=== PATIENT | male | born 1950 | race Caucasian/White ===

== ENCOUNTER → 2016-06-21 | Outpatient (CLI) | payer OTHER ==
[2015-12-09 17:00] VITALS: BP 100/54
[~2016-06-21] MED LIST: AMOX1TAB10 PO; ASPI325T4 PO; ASPI81TA9 PO; ATEN50TA PO; ATOR20TA58 PO; CARV3.122 PO; CARV6.25 PO; CARV6.252 PO; DORZ10DR3 EACHEYE; FURO-68 PO; HYDR-2868 PO; HYDR-2869 PO; ISOS30TA4 PO; LATA2.5D3 EACHEYE; LISI-338 PO; LISI10TA2 PO; POTA20TA4 PO; TAMS0.4C97 PO
--- NOTE | 2016-06-21 13:32 | CARD ---
APPROVED REPORT EXAM: Two-dimensional and M-mode echocardiogram with Doppler and color Doppler. Other Information Quality : Technically Limited INDICATION Dyspnea 2D DIMENSIONS RVDd3.0 (2.9-3.5cm)Left Atrium(2D)3.1 (1.6-4.0cm) IVSd1.6 (0.7-1.1cm)Aortic Root(2D)3.4 (2.0-3.7cm) LVDd4.4 (3.9-5.9cm)LVOT Diameter2.0 (1.8-2.4cm) PWd1.6 (0.7-1.1cm)LVDs3.7 (2.5-4.0cm) FS (%) 15.0 %SV27.5 ml Aortic Valve AoV Peak Matheus.106.2cm/sAoV VTI17.7cm AO Peak GR.4.5mmHgLVOT Peak Matheus.82.6cm/s LVOT VTI 18.09cmAO Mean GR.2mmHg SARA (VMAX)2.35tk9TSQ (VTI)3.17cm2 Mitral Valve MV E Thmeeoml62.7cm/sMV DECEL FRAG349te MV A Tuyrfrmh35.9cm/sMV E Mean Gr.1mmHg MV VMT30dmF/A Ratio1.5 MVA (PHT)4.05cm2 Pulmonary Valve PV Peak Ocrjwimt28.0cm/sPV Peak Grad.2mmHg RVOT VTI16.7cm Tricuspid Valve TR P. Myybssbg198bm/sRAP ZGJJVDVK6bkZh TR Peak Gr.74gjYdKKRM63nqWy LEFT VENTRICLE The left ventricle is normal size. There is mild to moderate concentric left ventricular hypertrophy. Left ventricle systolic function is mildly impaired. The Ejection Fraction is 40-45%. There is globa l hypokinesis of the left ventricle. Tissue Doppler imaging reveals moderate left ventricular diastol ic dysfunction. RIGHT VENTRICLE The right ventricle is normal size. The right ventricular systolic function is normal. ATRIA The left atrium size is normal. The right atrium size is normal. The interatrial septum is intact wit h no evidence for an atrial septal defect or patent foramen ovale as noted on 2-D or Doppler imaging. AORTIC VALVE The aortic valve is calcified but opens well. The aortic valve is trileaflet. Doppler and Color Flow revealed no significant aortic regurgitation. There is no significant aortic valvular stenosis. MITRAL VALVE The mitral valve is normal in structure and function. There is no mitral valve stenosis. Doppler and Color Flow revealed no mitral valve regurgitation noted. TRICUSPID VALVE The tricuspid valve is not well visualized. Doppler and Color Flow revealed trace tricuspid regurgita tion. The PA pressure was estimated at 21 mmHg. There is no tricuspid valve stenosis. PULMONIC VALVE The pulmonic valve is not well visualized. Doppler and Color Flow revealed no pulmonic valvular regur gitation. There is no pulmonic valvular stenosis. GREAT VESSELS The aortic root is normal in size. Pulmonary veins not recorded. The IVC was not visualized. PERICARDIAL EFFUSION There is no evidence of significant pericardial effusion. Critical Notification Critical Value: No <Conclusion> Left ventricle systolic function is mildly impaired. The Ejection Fraction is 40-45%. Doppler and Color Flow revealed trace tricuspid regurgitation. The PA pressure was estimated at 21 mmHg. There is no evidence of significant pericardial effusion.
== END | disposition home or self-care (01) ==
LOC: ECHO 10:16
PROVIDERS: ATTEND Internal Medicine Cardiovascular Disease
DX: I42.9 Cardiomyopathy, unspecified (principal); I07.1 Rheumatic tricuspid insufficiency; I70.0 Atherosclerosis of aorta; I51.7 Cardiomegaly
CPT/HCPCS: 93306

== ENCOUNTER → 2016-07-18 | Outpatient (CLI) | payer OTHER ==
[2015-12-09 17:00] VITALS: BP 100/54
== END | disposition home or self-care (01) ==
LOC: LAB 14:41
PROVIDERS: ATTEND Urology
DX: R97.20 Elevated prostate specific antigen [PSA] (principal)
CPT/HCPCS: 36415; G0103

== ENCOUNTER → 2016-08-01 | Outpatient (CLI) | payer OTHER ==
[2015-12-09 17:00] VITALS: BP 100/54
[~2016-08-01] MED LIST changes: +CIPR500T94 PO; +antibiotic
[2016-08-01 10:40] LABS: BASO # 0.1 x10^3/uL (0.0-0.2); BASO % 1 % (0-3); EOS % 4 % (0-3); HEMATOCRIT 41.6 % (39.0-53.0); HEMOGLOBIN 13.9 g/dL (13.0-17.5); LYMPH # 1.7 x10^3/uL (1.0-4.8); LYMPH % 21 % (24-48); MEAN CORPUSCULAR HEMOGLOBIN 29 pg (25-35); MEAN CORPUSCULAR HGB CONC 33 g/dL (31-37); MEAN CORPUSCULAR VOLUME 85 fL (79-100); MONO % 9 % (0-9); NEUT % 65 % (31-73); PLATELET COUNT 244 x10^3/uL (140-400); RED BLOOD COUNT 4.88 x10^6/uL (4.30-5.70); RED CELL DISTRIBUTION WIDTH 15.2 % (11.5-14.5); WHITE BLOOD COUNT 8.1 x10^3/uL (4.0-11.0)
[2016-08-01 10:56] LABS: CALCIUM 9.3 mg/dL (8.5-10.1); CREATININE 1.4 mg/dL (0.7-1.3); GFR 50.5; POTASSIUM 4.3 mmol/L (3.5-5.1)
== END | disposition home or self-care (01) ==
LOC: LAB 10:14
PROVIDERS: ATTEND Nurse Practitioner Occupational Health
DX: R97.20 Elevated prostate specific antigen [PSA] (principal); Z12.5 Encounter for screening for malignant neoplasm of prostate
CPT/HCPCS: 36415; 80048; 85027; G0103

== ENCOUNTER 2016-08-07 08:59 | Day surgery (SDC) | payer OTHER ==
--- NOTE | 2016-08-04 15:26 | HP ---
ADMIT DATE: 08/07/2016 SURGICAL HISTORY AND PHYSICAL The patient will be coming in sometime in the next month for a transrectal ultrasound of prostate and needle biopsies. This will be his H and P. CHIEF COMPLAINT: Urinary retention and elevated PSA. HISTORY OF PRESENT ILLNESS: The patient is a very pleasant 65-year-old white male with history of urinary retention, also found to have an elevated PSA in the 7-8 range. The patient's PSA on 01/17/2016 was 7.5. The patient was also in urinary retention at that time. Repeat PSAs, however, have shown PSA to still be elevated in the 7-8 range. Most recent PSA was 8. The patient failed voiding trial. He does have a Rodriguez catheter. Discussed with the patient the options, alternatives, benefits, risks and possible complications of transrectal ultrasound of prostate and needle biopsies to rule out adenocarcinoma of the prostate. PAST MEDICAL HISTORY: Significant for coronary artery disease, hypertension, chronic kidney disease. The patient has history of congestive heart failure in the past. MEDICATIONS: Trusopt, Latanoprost ophthalmic solutions, baby aspirin. We will check with Dr. Sheppard, his overhead cleaner to make sure it is okay to proceed with the operation and also to make sure it is okay to be off of his baby aspirin for a week before and a week after the procedure. The patient is also on Flomax, carvedilol and atorvastatin. ALLERGIES: The patient with no known drug allergies. REVIEW OF SYSTEMS: The patient is feeling well. PHYSICAL EXAMINATION: GENERAL: The patient is an elderly white male in no acute distress. HEENT: Normocephalic, atraumatic. NECK: Supple. CHEST: Clear to auscultation. CARDIOVASCULAR: Regular rate and rhythm. ABDOMEN: Soft, nontender. GENITOURINARY: Testes are descended bilaterally. Phallus is within normal limits. He has Rodriguez catheter to gravity drainage. RECTAL: On digital rectal examination, the patient has good sphincter tone. Prostate is smooth, nontender, without nodules, overall size 35 grams. EXTREMITIES: Without clubbing, cyanosis or edema. NEUROLOGIC: Grossly intact. IMPRESSION: Urinary retention and elevated PSA. PLAN: I discussed with the patient the options, alternatives, benefits, risks and possible complications of transrectal ultrasound of prostate and needle biopsies to rule out adenocarcinoma of the prostate. The patient understands this and does wish to proceed with operation. We will therefore proceed accordingly here in the next month after cardiac clearance. JOANNA FLORES MD DR: RACHELLE/tara JOB#: [id number] / [id number]
[~2016-08-07] VITALS: Ht 182.9 cm; Wt 100.2 kg
[~2016-08-07 08:59] MED LIST changes: -CIPR500T94 PO; +FENTANYL PF 100 MCG/2 ML VIAL. IV PRN; +HYDROMORPHONE 2 MG/ML VIAL. IV PRN; +IV RINGERS,LACTATED 1000ML 1,000 ML IV SCH; +LIDOCAINE 1% 1 ML SYRINGE. ID PRN; +MORPHINE SULFATE 2 MG/ML DISP.SYRIN. IV PRN; +ONDANSETRON PF 4 MG/2 ML VIAL. IV PRN; +PROCHLORPERAZINE 10 MG/2 ML VIAL. IV PRN
[2016-08-07] MEDS ORDERED: CIPR500T94 PO (09:41)
[2016-08-07 09:48] LABS: BASO # 0.1 x10^3/uL (0.0-0.2); BASO % 1 % (0-3); EOS % 4 % (0-3); HEMATOCRIT 39.6 % (39.0-53.0); HEMOGLOBIN 13.3 g/dL (13.0-17.5); LYMPH # 1.5 x10^3/uL (1.0-4.8); LYMPH % 19 % (24-48); MEAN CORPUSCULAR HEMOGLOBIN 28 pg (25-35); MEAN CORPUSCULAR HGB CONC 34 g/dL (31-37); MEAN CORPUSCULAR VOLUME 85 fL (79-100); MONO % 8 % (0-9); NEUT % 68 % (31-73); PLATELET COUNT 220 x10^3/uL (140-400); RED BLOOD COUNT 4.67 x10^6/uL (4.30-5.70); RED CELL DISTRIBUTION WIDTH 15.4 % (11.5-14.5); WHITE BLOOD COUNT 7.9 x10^3/uL (4.0-11.0)
[2016-08-07 09:56] LABS: CREATININE 1.5 mg/dL (0.7-1.3); GFR 46.7; POTASSIUM 3.9 mmol/L (3.5-5.1)
[2016-08-07] MEDS ORDERED: PROPOFOL 20 ML IV ONE (10:35)
[2016-08-07] MEDS ORDERED: LIDOCAINE 2% 100 MG/5 ML DISP.SYRIN. ONE (10:35)
[2016-08-07] MEDS ORDERED: DEXAMETHASONE SOD PHOS 20 MG/5 ML VIAL. ONE (10:36)
[2016-08-07] MEDS ORDERED: ONDANSETRON PF 4 MG/2 ML VIAL. ONE (10:36)
[2016-08-07] MEDS ORDERED: EPHEDRINE PF IN SALINE 50 MG/5 ML DISP.SYRIN. IV ONE (10:44)
[2016-08-07] MEDS ORDERED: SEVOFLURANE 31 TO 60 MINUTES. IH ONE (10:57)
--- NOTE | 2016-08-07 11:08 | DISCH ---
DISCHARGE INSTRUCTIONS Condition on Discharge Condition on Discharge: Stable Activity After Discharge Activity Instructions for Disc: Avoid exertion Diet after Discharge Diet after Discharge: Cardiac Contacting the DRGerald after DC Call your doctor for: If your condition worsens Follow-Up Follow up with: Follow up Dr. Barboza in urology in 2 weeks JOANNA BARBOZA MD Aug 07, 2016 11:08
--- NOTE | 2016-08-07 11:10 | PDOC4 ---
Operative Note Operative Note pre-op dx-elevated PSA procedure-Transrectal ultrasound of the prostate with prostate needle biopsies surgeon-clyde flores-general Pt. to PACU in stable condition JOANNA FLORES MD Aug 07, 2016 11:10
[2016-08-07 12:50] VITALS: BP 128/57
--- NOTE | 2016-08-07 16:36 | OP ---
DATE OF SURGERY: 08/07/2016 OPERATION: Transrectal ultrasound and prostate needle biopsy. SURGEON: Joanna Barboza MD ANESTHESIA: General. PREOPERATIVE DIAGNOSIS: Elevated prostate-specific antigen. POSTOPERATIVE DIAGNOSIS: Elevated prostate-specific antigen. INDICATIONS: The patient is a very pleasant 65-year-old white male with history of elevated PSA and urinary retention. The patient runs a PSA in the 7 to 8 range. Most recently was 8. The patient also has urinary retention and has indwelling Rodriguez catheter which is changed on a regular basis. I have discussed with the patient the options, alternatives, benefits, risks, and possible complications of transrectal ultrasound and prostate needle biopsies to rule out adenocarcinoma of the prostate. The patient understands this and does wish to proceed with the operation. DESCRIPTION OF PROCEDURE: After obtaining an informed consent and cardiac clearance, the patient was taken to the operating room and placed in a left lateral decubitus position. The patient had already taken his antibiotic preprocedurally. He was also given IV antibiotics preprocedurally and has antibiotics to take postprocedurally to cover him for the procedure. Rectal examination was then performed. The patient had a fairly good sphincter tone, prostate smooth without nodules, overall size 30 grams by palpation. Following this, transrectal ultrasound was then performed with the biplanar probe. Prostate was inspected in both transverse and sagittal planes. Prostate size was calculated to be 55 cubic cm. No obvious hypoechoic areas were identified. Following this, Sextant biopsies were then obtained with the [employer]Pro biopty gun and biopty needle. Biopsies were sent for pathologic analysis. Following this, the probe was removed from the patient. The patient tolerated the procedure very well with only a small amount of oozing from the biopsy sites. Following this, patient was then taken to the recovery room in stable condition. We will have the patient follow up in Urology office in 2 weeks for his catheter change and to review the pathology results when they come back. The patient will hold off on his baby aspirin for one more week. He has been off for 1 week. The patient has antibiotics to take tomorrow to cover him for the procedure also in addition to the antibiotics he had received preoperatively. JOANNA BARBOZA MD DR: RACHELLE/tara JOB#: [id number] / [id number]
--- NOTE | 2016-08-08 17:16 | PATHOLOGY ---
PATHOLOGY REPORT * * * * * * * * FINAL DIAGNOSIS: A. Prostate tissue, left apex prostate needle biopsies: - Focal acute and chronic inflammation and glandular atrophy. B. Prostate tissue, left mid prostate needle biopsies: - Focal acute and chronic inflammation and glandular atrophy. C. Prostate tissue, left base prostate needle biopsies: - Focal acute and chronic inflammation and glandular atrophy. D. Prostate tissue, right apex prostate needle biopsies: - Focal chronic inflammation and glandular atrophy. E. Prostate tissue, right mid prostate needle biopsies: - Focal glandular atrophy. F. Prostate tissue, right base prostate needle biopsies: - Focal glandular atrophy. COMMENT: There is no evidence of malignancy. (JPM:mgr; d/t: 08/08/16) REPORT ELECTRONICALLY SIGNED BY: Abisai Whalen M.D. DATE/TIME: 08/08/2016 17:16 * * * * * * * * GROSS PATHOLOGY: A. Submitted in formalin, labeled "Jose Ralph and left apex," are 2 needle cores of putnam tissue measuring 1.5 and 1.6 cm in length, by less than 0.1 cm in diameter. Tissue is submitted in toto in cassette A1. B. Submitted in formalin, labeled "Jose Ralph and left mid," are 4 needle cores of putnam tissue ranging from 0.3-1.8 cm in length, by less than 0.1 cm in diameter. Tissue is submitted in toto in cassette B1. C. Submitted in formalin, labeled "Ralph, Jose and left base," are 2 needle cores of putnam tissue measuring 1.6 and 2.2 cm in length, by less than 0.1 cm in diameter. Tissue is submitted in toto in cassette C1. D. Submitted in formalin, labeled "Jose Ralph and right apex," are 2 needle cores of putnam tissue measuring 1.2 and 1.8 cm in length, by less than 0.1 cm in diameter. Tissue is submitted in toto in cassette D1. E. Submitted in formalin, labeled "Ralph, Jose and right mid," are 3 needle cores of putnam tissue ranging from 0.3-1.3 cm in length, by less than 0.1 cm in diameter. Tissue is submitted in toto in cassette E1. F. Submitted in formalin, labeled "Ralph, Jose and right base," are 3 needle cores of putnam tissue ranging from 0.3-1.3 cm in length, by less than 0.1 cm in diameter. Tissue submitted in toto in cassette F1. (TTL; 08/07/2016) INITIAL CPT CODE(S): A; 39720 B; 63996 C; 61312 D; 10665 E; 61589 F; 93155 Professional services performed [place] [facility] [place] [address] Technical services performed by [facility] at [address] [place] [address], [facility] [address] [address]. SPECIMEN(S) RECEIVED: A.Left apex prostate, needle biopsy B.Left mid prostate, needle biopsy C.Left base prostate, needle biopsy D.Right apex prostate, needle biopsy E.Right mid prostate, needle biopsy F.Right base prostate, needle biopsy CLINICAL HISTORY: Elevated PSA PATIENT: JOSE RALPH /AGE: [id number] 1950 (Age: 65) PATIENT #: [id number] ALT CASE #: SPECIMEN COLLECTION DATE: 08/07/2016 SPECIMEN RECEIVED DATE: 08/07/2016 [facility] - [address] [place] [address] - PHONE: [phone] * * * END OF REPORT * * *
== END 2016-08-07 13:00 | disposition home or self-care (01) ==
LOC: SURG 08:59
PROVIDERS: ATTEND Urology
DX: R97.20 Elevated prostate specific antigen [PSA] (principal); H40.9 Unspecified glaucoma; I10 Essential (primary) hypertension
CPT/HCPCS: 36415; 55700; 76942; 80048; 85027; 88305; C1887; J1100; J1956; J2405; J2704; 76998

== ENCOUNTER 2016-11-22 13:22 | Emergency (ER) | payer OTHER ==
[~2016-11-22] VITALS: Ht 182.9 cm; Wt 109.3 kg
[~2016-11-22 13:22] MED LIST changes: +ASPI-612 PO; -ASPI325T4 PO; +ASPI325T8 PO; -ASPI81TA9 PO; +CIPR500T94 PO; -FENTANYL PF 100 MCG/2 ML VIAL. IV PRN; -HYDROMORPHONE 2 MG/ML VIAL. IV PRN; -IV RINGERS,LACTATED 1000ML 1,000 ML IV SCH; -LIDOCAINE 1% 1 ML SYRINGE. ID PRN; -MORPHINE SULFATE 2 MG/ML DISP.SYRIN. IV PRN; -ONDANSETRON PF 4 MG/2 ML VIAL. IV PRN; -PROCHLORPERAZINE 10 MG/2 ML VIAL. IV PRN
[2016-11-22 13:30] VITALS: BP 167/70
--- NOTE | 2016-11-22 13:33 | PHYS DOC ---
Past Medical History Past Medical History: Heart Disease, Hypertension, Renal Disease Additional Past Medical Histor: glaucoma Past Surgical History: No Surgical History Alcohol Use: None Drug Use: None Adult General Chief Complaint Chief Complaint: CATHETER CHANGE HPI HPI Patient is a 65 year old male with indwelling rebollar catheter who presents for routine catheter exchange. Due to recent changes in local Urology coverage, he does not have a clinic available for this service. He denies other complaints. He is awaiting new urologist appointment. Review of Systems Review of Systems Constitutional: Denies fever or chills [] Eyes: Denies change in visual acuity, redness, or eye pain [] HENT: Denies nasal congestion or sore throat [] Respiratory: Denies cough or shortness of breath [] Cardiovascular: No additional information not addressed in HPI [] GI: Denies abdominal pain, nausea, vomiting, bloody stools or diarrhea [] : Denies dysuria or hematuria [] Musculoskeletal: Denies back pain or joint pain [] Integument: Denies rash or skin lesions [] Neurologic: Denies headache, focal weakness or sensory changes [] Endocrine: Denies polyuria or polydipsia [] Allergies Allergies Allergies Coded Allergies Type Severity Reaction Last Updated Verified No Known Drug Allergies 08/07/16 No Physical Exam Physical Exam Constitutional: Well developed, well nourished, no acute distress, non-toxic appearance. [] HENT: Normocephalic, atraumatic, bilateral external ears normal, oropharynx moist, nose normal. [] Eyes: PERRLA, EOMI. [] Neck: Normal range of motion, supple. [] Cardiovascular: Extremities warm [] Lungs & Thorax: Respirations even and unlabored [] Abdomen: soft, no tenderness. [] Skin: Warm, dry, no erythema, no rash. [] Back: Normal range of motion. [] Extremities: ROM intact, ambulatory with a steady gait. [] Neurologic: Alert and oriented X 3, normal motor function, normal sensory function, no focal deficits noted. [] Psychologic: Affect normal, judgement normal, mood normal. [] Course & Med Decision Making Course & Med Decision Making Catheter exchange without complication. Return precautions given. He understands and agrees with plan. Dragon Disclaimer Dragon Disclaimer This electronic medical record was generated, in whole or in part, using a voice recognition dictation system. Departure Departure Impression: Primary Impression: Urinary catheter (Rebollar) change required Disposition: HOME, SELF-CARE Condition: STABLE Referrals: NO PCP (PCP) Patient Instructions: Rebollar Catheter Care, Adult Additional Instructions: Follow-up with urology clinic and your primary care doctor. Return for any concerns. An GONZALEZ MD Nov 22, 2016 13:33
== END 2016-11-22 13:45 | disposition home or self-care (01) ==
LOC: ER 13:22
DX: Z46.6 Encounter for fitting and adjustment of urinary device (principal); H40.9 Unspecified glaucoma; I11.9 Hypertensive heart disease without heart failure
CPT/HCPCS: 51702; 99284-25

== ENCOUNTER 2017-02-15 14:16 | Emergency (ER) | payer OTHER ==
[2017-02-15 14:25] VITALS: BP 166/91
--- NOTE | 2017-02-15 14:35 | PHYS DOC ---
Past Medical History Past Medical History: Heart Disease, Hypertension, Prostatitis, Renal Disease Additional Past Medical Histor: glaucoma Past Surgical History: No Surgical History Alcohol Use: None Drug Use: None Adult General Chief Complaint Chief Complaint: URINE CATHETER PROBLEM [facility] Patient is a 66 year old male who presents with requesting of his Rodriguez catheter change. He states his been 5 weeks since he had his last catheter change and that was at . He states [facility] told to have it changed every month. He does not want any blood work he denies any lightheadedness abdominal pain or weakness. He states he just wants a catheter change. He states he's was beginning prostate surgery soon and that he has to keep the catheter in until April. Review of Systems Review of Systems Constitutional: Denies fever or chills [] Eyes: Denies change in visual acuity, redness, or eye pain [] HENT: Denies nasal congestion or sore throat [] Respiratory: Denies cough or shortness of breath [] Cardiovascular: No additional information not addressed in HPI [] GI: Denies abdominal pain, nausea, vomiting, bloody stools or diarrhea [] : Denies dysuria or hematuria [] Musculoskeletal: Denies back pain or joint pain [] Integument: Denies rash or skin lesions [] Neurologic: Denies headache, focal weakness or sensory changes [] Endocrine: Denies polyuria or polydipsia [] Allergies Allergies Allergies Coded Allergies Type Severity Reaction Last Updated Verified No Known Drug Allergies 08/07/16 No Physical Exam Physical Exam Constitutional: Well developed, well nourished, no acute distress, non-toxic appearance. [] HENT: Normocephalic, atraumatic, bilateral external ears normal, oropharynx moist, no oral exudates, nose normal. [] Eyes: PERRLA, EOMI, conjunctiva normal, no discharge. [] Neck: Normal range of motion, no tenderness, supple, no stridor. [] Cardiovascular:Heart rate regular rhythm, no murmur [] Lungs & Thorax: Bilateral breath sounds clear to auscultation [] Abdomen: Bowel sounds normal, soft, no tenderness, no masses, no pulsatile masses. Rodriguez catheter in place with red tinged colored urine. Skin: Warm, dry, no erythema, no rash. [] Back: No tenderness, no CVA tenderness. [] Extremities: No tenderness, no cyanosis, no clubbing, ROM intact, no edema. [] Neurologic: Alert and oriented X 3, normal motor function, normal sensory function, no focal deficits noted. [] Psychologic: Affect normal, judgement normal, mood normal. [] Current Patient Data Vital Signs Vital Signs Date Time Temp Pulse Resp B/P (MAP) Pulse Ox O2 Delivery O2 Flow Rate FiO2 02/15/17 14:25 98.4 66 16 97 Room Air 98.4 EKG EKG [] Radiology/Procedures Radiology/Procedures [] Impressions: Rodriguez catheter change Course & Med Decision Making Course & Med Decision Making Pertinent Labs and Imaging studies reviewed. (See chart for details) Patient does not want labs done. He is once his catheter change. It was changed by according to the nursing when a little difficult and has a little bit of red colored urine in the bag at this time. Patient denies any pain or discomfort. He is requesting we discharged home. He is instructed that if the blood gets worse or does not clear the next several hours to return back to ER. Dragon Disclaimer Dragon Disclaimer This electronic medical record was generated, in whole or in part, using a voice recognition dictation system. Departure Departure Impression: Primary Impression: Rodriguez catheter problem Disposition: 01 HOME, SELF-CARE Condition: STABLE Referrals: NO PCP (PCP) Patient Instructions: Rodriguez Catheter Care, Adult Additional Instructions: Your Rodriguez catheter was changed per your request. He did not want any blood work to be done. He did have some blood in your Rodriguez that should clear over the next several hours. If it does not clear you need to come back to the ER. If you have any other concerns such as fevers, abdominal pain, weakness and please return back to ER for additional tests. Problem Qualifiers Primary Impression: Rodriguez catheter problem Encounter type: initial encounter Qualified Codes: T83.9XXA - Unspecified complication of genitourinary prosthetic device, implant and graft, initial encounter CARLOS CINTRON MD Feb 15, 2017 14:35
== END 2017-02-15 14:53 | disposition home or self-care (01) ==
LOC: ER 14:16
DX: T83.098A Other mechanical complication of other urinary catheter, initial encounter (principal); I13.10 Hypertensive heart and chronic kidney disease without heart failure, with stage 1 through stage 4 chronic kidney disease, or unspecified chronic kidney disease; N18.9 Chronic kidney disease, unspecified; H40.9 Unspecified glaucoma; Y84.6 Urinary catheterization as the cause of abnormal reaction of the patient, or of later complication, without mention of misadventure at the time of the procedure; Y92.89 Other specified places as the place of occurrence of the external cause
CPT/HCPCS: 51702; 99284-25

== ENCOUNTER 2017-03-16 09:41 | Emergency (ER) | payer OTHER ==
[~2017-03-16] VITALS: Ht 182.9 cm; Wt 102.1 kg
[2017-03-16 09:55] VITALS: BP 131/69
--- NOTE | 2017-03-16 10:23 | PHYS DOC ---
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 He states that it's supposed to be changed monthly basis. He has a history of prostate cancer in which they have placed a catheter and due to to urinate. Patient states that his urologist was Dr. Barboza who is retired. He has been seeing [facility] and is set up for a ultrasound type procedure on the of this month. Patient states that last night he was also having difficulty with his catheter draining. His catheter appears to be draining clear yellow urine at this time. He denies any fever, chills or any nausea vomiting. Review of Systems Review of Systems Constitutional: Denies fever or chills [] Eyes: Denies change in visual acuity, redness, or eye pain [] HENT: Denies nasal congestion or sore throat [] Respiratory: Denies cough or shortness of breath [] Cardiovascular: No additional information not addressed in HPI [] GI: Denies abdominal pain, nausea, vomiting, bloody stools or diarrhea [] : Denies dysuria or hematuria [] Musculoskeletal: Denies back pain or joint pain [] Integument: Denies rash or skin lesions [] Neurologic: Denies headache, focal weakness or sensory changes [] Endocrine: Denies polyuria or polydipsia [] Patient states that he is here for catheter change. Allergies Allergies Allergies Coded Allergies Type Severity Reaction Last Updated Verified No Known Drug Allergies 08/07/16 No Physical Exam Physical Exam Constitutional: Well developed, well nourished, no acute distress, non-toxic appearance. [] HENT: Normocephalic, atraumatic, bilateral external ears normal, oropharynx moist, no oral exudates, nose normal. [] Eyes: PERRLA, EOMI, conjunctiva normal, no discharge. [] Neck: Normal range of motion, no tenderness, supple, no stridor. [] Cardiovascular:Heart rate regular rhythm, no murmur [] Lungs & Thorax: Bilateral breath sounds clear to auscultation [] Skin: Warm, dry, no erythema, no rash. [] Extremities: No tenderness, no cyanosis, no clubbing, ROM intact, no edema. [] Neurologic: Alert and oriented X 3, normal motor function, normal sensory function, no focal deficits noted. [] Psychologic: Affect normal, judgement normal, mood normal. [] Current Patient Data Vital Signs Vital Signs Date Time Temp Pulse Resp B/P (MAP) Pulse Ox O2 Delivery O2 Flow Rate FiO2 03/16/17 09:55 98.5 65 20 95 Room Air 98.5 Lab Values Laboratory Tests Test 03/16/17 11:05 Urine Collection Type U cath Urine Color Red Urine Clarity Turbid Urine pH 6.0 Urine Specific [place] 1.015 Urine Protein >=300 mg/dL (NEG-TRACE) Urine Glucose (UA) Negative mg/dL (NEG) Urine Ketones (Stick) 40 mg/dL (NEG) Urine Blood Large (NEG) Urine Nitrite Positive (NEG) Urine Bilirubin Large (NEG) Urine Urobilinogen Dipstick 1.0 mg/dL (0.2 mg/dL) Urine Leukocyte Esterase Large (NEG) Urine RBC Tntc /HPF (0-2) Urine WBC Fobs /HPF (0-4) Urine Squamous Epithelial Cells Few /LPF Urine Bacteria Few /HPF (0-FEW) EKG EKG [] Radiology/Procedures Radiology/Procedures [] Course & Med Decision Making Course & Med Decision Making Pertinent Labs and Imaging studies reviewed. (See chart for details) Spoke with patient regards to having the Rebollar catheter changed in speaking with his primary care physician or urologist in regards to having home health placed the catheter normal basis. Patient states that he does have health insurance, and he doesn't want coming to the emergency department to have this completed. Explained to patient that one it's more cost effective for the health insurance and himself as well as preventing him from coming in contact with sick patients. Rebollar catheter will be changed with UA obtained. Urine was positive for urinary tract infection as the patient does have a large amount leukocyte Estrace, and is positive for nitrates. Patient will be placed on Cipro with recommendations for plenty of fluids such as water and cranberry juice recommended to avoid cranberry juice cocktail, carbonated beverages, citrus fruits, alcohol, caffeine as these are considered irritants to the bladder. Patient will also be encouraged to take the medication, antibiotic, Cipro as prescribed. Patient will be discharged home in stable condition. Signs and symptoms to return to the emergency department has been provided. All questions and concerns have been answered at patients bedside. Also recommended that the patient check with his Urologist in regards to home health changing his rebollar catheter on a monthly basis. [] Dragon Disclaimer Dragon Disclaimer This electronic medical record was generated, in whole or in part, using a voice recognition dictation system. Departure Departure Impression: Primary Impression: Urinary catheter (Rebollar) change required Additional Impression: Catheter-associated urinary tract infection Disposition: HOME, SELF-CARE Condition: STABLE Referrals: NO PCP (PCP) Patient Instructions: Rebollar Catheter Care, Adult, Urinary Tract Infection, Easy -to-Read Additional Instructions: Activity as tolerated Drink plenty of fluids such as water and cranberry juice. Avoid cranberry juice cocktail, carbonate beverages, citrus fruits, caffeine, alcohol, sees her considered irritants to the bladder. Medication as prescribed Continue your home medications as prescribed Check with your urologist in regards to home health for rebollar catheter changes. Followup with primary care provider in 3-5 days Return to emergency department as needed for signs and symptoms that become worse. Scripts Ciprofloxacin Hcl (CIPRO) 500 Mg Tablet 1 TAB PO BID, #14 TAB Prov: MARGARITA WOLF APRN 03/16/17 Problem Qualifiers Additional Impression: Catheter-associated urinary tract infection Indwelling urinary catheter type: indwelling urethral catheter Encounter type : initial encounter Qualified Codes: T83.511A - Infection and inflammatory reaction due to indwelling urethral catheter, initial encounter; N39.0 - Urinary tract infection, site not specified MARGARITA WOLF APRN Mar 16, 2017 10:23
[2017-03-16 11:15] LABS: BILIRUBIN,URINE LARGE (NEG); GLUCOSE,URINE NEGATIVE (NEG); NITRITE,URINE POSITIVE (NEG); PROTEIN,URINE >=300 mg/dL (NEG-TRACE)
[2017-03-16 11:48] LABS: BACTERIA,URINE FEW /HPF (0-FEW); RBC,URINE TNTC /HPF (0-2)
[2017-03-16 11:49] LABS: SQUAMOUS EPITHELIAL CELL,UR FEW /LPF; WBC,URINE FOBS /HPF (0-4)
[2017-03-16] MEDS ORDERED: CIPR500T94 PO (11:53)
== END 2017-03-16 12:00 | disposition home or self-care (01) ==
LOC: ER 09:41
DX: T83.511A Infection and inflammatory reaction due to indwelling urethral catheter, initial encounter (principal); I13.10 Hypertensive heart and chronic kidney disease without heart failure, with stage 1 through stage 4 chronic kidney disease, or unspecified chronic kidney disease; N18.9 Chronic kidney disease, unspecified; Y84.6 Urinary catheterization as the cause of abnormal reaction of the patient, or of later complication, without mention of misadventure at the time of the procedure; Y92.89 Other specified places as the place of occurrence of the external cause
CPT/HCPCS: 51702; 81001; 87086; 99284-25

== ENCOUNTER 2017-03-21 02:27 | Emergency (ER) | payer OTHER ==
[~2017-03-21] VITALS: Ht 182.9 cm; Wt 99.8 kg
[2017-03-21 03:03] VITALS: BP 149/71
--- NOTE | 2017-03-21 04:21 | PHYS DOC ---
Past Medical History Past Medical History: Heart Disease, Hypertension, Prostatitis, Renal Disease Additional Past Medical Histor: glaucoma Past Surgical History: No Surgical History Alcohol Use: None Drug Use: None Adult General Chief Complaint Chief Complaint: URINE CATHETER PROBLEM HPI HPI Patient is a 66 year old M who presents with bleeding from the penis. Patient has indwelling Rodriguez catheter which is changed every 4 months secondary to difficulties with urination. Patient got the catheter tubing caught in the recliner as returning get out in which it pulled and he sustained some trauma afterwards. After the incident patient started having blood in his catheter bag and around the tip of the penis. Patient denied any other symptoms. Patient states he is on antibiotics for her current UTI. Patient no other complaints. Review of Systems Review of Systems GEN: Denies fevers, chills, sweats HEENT: Denies blurred vision, sore throat CV: Denies chest pain RESP: Denies shortness of air, cough GI: Denies n/v/d : Bleeding from the penis NEURO: Denies confusion, dizziness MSK: Denies weakness, joint pain/swelling Allergies Allergies Allergies Coded Allergies Type Severity Reaction Last Updated Verified No Known Drug Allergies 08/07/16 No Physical Exam Physical Exam GEN.: No apparent distress. Alert and oriented. HEENT: Head is normocephalic, atraumatic NECK: Supple. LUNGS: CTAB. HEART: RRR, S1, S2 present. Peripheral pulses intact ABDOMEN: Soft, nontender. Positive bowel sounds. : Indwelling Rodriguez catheter in place with blood at the tip of the meatus EXTREMITIES: Without any cyanosis. NEUROLOGIC: Normal speech, normal tone PSYCHIATRIC: Normal affect, normal mood. SKIN: No ulcerations Current Patient Data Vital Signs Vital Signs Date Time Temp Pulse Resp B/P (MAP) Pulse Ox O2 Delivery O2 Flow Rate FiO2 03/21/17 03:03 98.5 60 18 94 Room Air 98.5 EKG EKG [] Radiology/Procedures Radiology/Procedures [] Course & Med Decision Making Course & Med Decision Making Pertinent Labs and Imaging studies reviewed. (See chart for details) ED course: Patient was seen and examined emergency room to irrigate the patient's Rodriguez to clear since he is getting good urine return. Will not run a UA at this time since the patient already on antibiotics for UTI which she just started a couple days ago. 0447: Patient's Rodriguez was irrigated to almost clear, patient is ready go feels much better. Recommended he should follow up with his urologist next one to 2 days returning symptoms increase. MDM: After reviewing the chart, CC/HPI/PMH, physical exam, I do not believe the patient has emergent urological issue warranting further workup and/or admission at this time. I believe the patient has cause some local trauma to his urethra when he pulled on the tubing for the Rodriguez catheter which has led to some bleeding. The bladder is been irrigated thoroughly in the emergency room. I believe the patient is stable for discharge. Recommended short-term follow-up with his urologist. Explained to the patient that if the bleeding increases clots could clog up the tubing and cause urinary retention in which the need to return to the emergency room immediately. Additional verbal discharge instructions were provided to the patient and that if symptoms get worse or any new symptoms arise that are worrisome to the patient he is to return to the emergency room immediately [] Dragon Disclaimer Dragon Disclaimer This electronic medical record was generated, in whole or in part, using a voice recognition dictation system. Departure Departure Impression: Primary Impression: Urinary catheter complication Additional Impression: Hematuria Disposition: HOME, SELF-CARE Condition: IMPROVED Referrals: NO PCP (PCP) Patient Instructions: Rodriguez Catheter Care, Adult, Hematuria, Adult Additional Instructions: Please follow-up with your urologist next one to 2 days turn if symptoms increase Problem Qualifiers MIRTHA BARONE DO Mar 21, 2017 04:21
== END 2017-03-21 05:11 | disposition home or self-care (01) ==
LOC: ER 02:27
DX: T83.098A Other mechanical complication of other urinary catheter, initial encounter (principal); I13.10 Hypertensive heart and chronic kidney disease without heart failure, with stage 1 through stage 4 chronic kidney disease, or unspecified chronic kidney disease; N18.9 Chronic kidney disease, unspecified; Y84.6 Urinary catheterization as the cause of abnormal reaction of the patient, or of later complication, without mention of misadventure at the time of the procedure; Y92.89 Other specified places as the place of occurrence of the external cause
CPT/HCPCS: 99284

== ENCOUNTER 2018-03-14 13:01 | Emergency (ER) | payer MEDICARE, OTHER ==
[~2018-03-14] VITALS: Ht 185.4 cm; Wt 100.7 kg
[~2018-03-14 13:01] MED LIST changes: +AMLO5TAB7 PO; +BRIM5DRO2 OP; -DORZ10DR3 EACHEYE; +DORZ10DR6 EACHEYE; +METO25TA4 PO; +OXYB10TA PO
--- NOTE | 2018-03-14 13:40 | PHYS DOC ---
Past Medical History Past Medical History: A-Fib, CHF, Glaucoma, High Cholesterol, Heart Disease, Hypertension, Prostatitis, Renal Disease Additional Past Medical Histor: [place], blind right eye Past Surgical History: Other Additional Past Surgical Histo: CARDIAC CATH, prostate Alcohol Use: None Drug Use: None Adult General Chief Complaint Chief Complaint: MECHANICAL FALL HPI HPI 67-year-old male presents to ER for complaints of mechanical fall on Sunday night striking the right side of his head on the concrete. Patient reports he had no loss of consciousness or confusion following the fall. Patient states this morning he woke around 8 or 9 AM and had a small floater in his right thigh. Patient reports symptom subsided and he has had no additional vision changes since. Patient denies any dizziness, lightheadedness, earache, or tinnitus. Patient denies nausea or vomiting. 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 Patient reports mild discomfort at abrasions to right orbital and forehead area. Patient denies head, neck, back, or extremity pain. Pt reports he takes 81mg aspirin daily. Review of Systems Review of Systems Constitutional: Denies fever or chills [] Eyes: Denies change in visual acuity, redness, or eye pain [] HENT: Denies nasal congestion or sore throat [] Respiratory: Denies cough or shortness of breath [] Cardiovascular: No additional information not addressed in HPI [] GI: Denies abdominal pain, nausea, vomiting, bloody stools or diarrhea [] : Denies dysuria or hematuria [] Musculoskeletal: Denies back pain or joint pain [] Integument: Denies rash or skin lesions [] Neurologic: Denies headache, focal weakness or sensory changes [] Endocrine: Denies polyuria or polydipsia [] All other systems were reviewed and found to be within normal limits, except as documented in this note. Allergies Allergies Allergies Coded Allergies Type Severity Reaction Last Updated Verified No Known Drug Allergies 08/07/16 No Physical Exam Physical Exam Constitutional: Well developed, well nourished, no acute distress, non-toxic appearance. [] HENT: Normocephalic, atraumatic, bilateral external ears normal, oropharynx moist, no oral exudates, nose normal. [] Eyes: PERRLA, EOMI, conjunctiva normal, no discharge. [] Neck: Normal range of motion, no tenderness, supple, no stridor. [] Cardiovascular:Heart rate regular rhythm, no murmur [] Lungs & Thorax: Bilateral breath sounds clear to auscultation [] Abdomen: Bowel sounds normal, soft, no tenderness, no masses, no pulsatile masses. [] Skin: Warm, dry, no erythema, no rash. [] Back: No tenderness, no CVA tenderness. [] Extremities: No tenderness, no cyanosis, no clubbing, ROM intact, no edema. [] Neurologic: Alert and oriented X 3, normal motor function, normal sensory function, no focal deficits noted. [] Psychologic: Affect normal, judgement normal, mood normal. [] Current Patient Data Vital Signs Vital Signs Date Time Temp Pulse Resp B/P (MAP) Pulse Ox O2 Delivery O2 Flow Rate FiO2 03/14/18 13:01 98.2 72 20 121/64 (83) 93 98.2 EKG EKG [] Radiology/Procedures Radiology/Procedures [] Course & Med Decision Making Course & Med Decision Making Pertinent Imaging studies reviewed. (See chart for details) [] Dragon Disclaimer Dragon Disclaimer This electronic medical record was generated, in whole or in part, using a voice recognition dictation system. Departure Departure Impression: Primary Impression: Fall Additional Impressions: Abrasion Contusion Facial injury Disposition: HOME, SELF-CARE Condition: STABLE Referrals: NO PCP (PCP) Patient Instructions: Abrasions, Facial or Scalp Contusion, Fall Prevention and Home Safety Additional Instructions: As discussed follow-up with your cad technician for further evaluation. Tylenol as needed for pain as directed on container. Problem Qualifiers AZAR LANE APRN Mar 14, 2018 13:40
--- NOTE | 2018-03-14 14:19 | RAD ---
CT of the head and orbits without contrast 03/14/2018 1:48 PM Indication: FALL SUNDAY, RT SIDE HEAD AND FACIAL INJURY, PRIOR HEAD SENT Comparison: None Procedure: Multidetector CT imaging of the head and orbits was performed without the administration of contrast. Findings: No intracranial hemorrhage is seen. No evidence of acute territorial infarct is seen. Note that CT is limited in sensitivity for acute ischemia. Mild age related atrophic changes are noted. There is mild patchy periventricular and inflammatory hypoattenuation which is nonspecific but most commonly relates to chronic small vessel disease. No abnormal extra axial fluid collection is identified. No mass effect or midline shift is seen. No evidence of acute fracture is seen. The paranasal sinuses demonstrate no evidence of hemorrhage or acute fluid level. The visualized globes are intact. No intra-articular call hematoma or other focal abnormality is seen. The nasal bones are intact. The bony orbits are intact. Impression: 1.No evidence of acute intracranial abnormality 2. No evidence of acute abnormality involving the bony orbits.. CT cervical spine without contrast. 03/14/2018 1:48 PM Indication:FALL SUNDAY, RT SIDE HEAD AND FACIAL INJURY, PRIOR HEAD SENT Comparison Study: None Technique: Multidetector CT imaging of the cervical spine was obtained without administration of contrast. Findings: There is no evidence of acute fracture or alignment abnormality of the cervical. Vertebral body heights and disc spaces are maintained. The atlantoaxial articulation is within normal limits. There is no prevertebral soft tissue swelling. Soft tissues are otherwise unremarkable. No bony compromise of the spinal canal is seen. Impression: No evidence of acute fracture or alignment abnormality of the cervical spine CT DOSING PQRS STATEMENT: One or more of the following individualized dose reduction techniques were utilized for this examination: 1. Automated exposure control 2. Adjustment of the mA and/or kV according to patient size 3. Use of iterative reconstruction technique Electronically signed by: Earle Gasca MD (03/14/2018 2:15 PM) [id number]
[2018-03-14 14:47] VITALS: BP 133/71
--- NOTE | 2018-03-15 08:26 | EKG ---
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
== END 2018-03-14 14:47 | disposition home or self-care (01) ==
LOC: ER 13:01
DX: S00.83XA Contusion of other part of head, initial encounter (principal); S05.11XA Contusion of eyeball and orbital tissues, right eye, initial encounter; I48.91 Unspecified atrial fibrillation; I11.0 Hypertensive heart disease with heart failure; I50.9 Heart failure, unspecified; E78.00 Pure hypercholesterolemia, unspecified; W18.09XA Striking against other object with subsequent fall, initial encounter; H54.40 Blindness, one eye, unspecified eye; Y93.89 Activity, other specified; Y92.89 Other specified places as the place of occurrence of the external cause; Y99.8 Other external cause status
CPT/HCPCS: 70450; 70480; 72125; 93005; 99284

== ENCOUNTER 2019-07-22 07:46 | Emergency (ER) | payer OTHER ==
[~2019-07-22] VITALS: Ht 182.9 cm; Wt 97.0 kg
[~2019-07-22 07:46] MED LIST changes: +AMLO5TAB10 PO; -AMLO5TAB7 PO; +CARV3.1210 PO; -CARV3.122 PO; +CARV6.2511 PO; -CARV6.252 PO; +FURO40TA4 PO; -OXYB10TA PO; +OXYB10TA26 PO; +POTA10TA12 PO; +PRAM0.255 PO
--- NOTE | 2019-07-22 08:53 | PHYS DOC ---
Past Medical History Past Medical History: A-Fib, CHF, Glaucoma, High Cholesterol, Heart Disease, Hypertension, Prostatitis, Renal Disease Additional Past Medical Histor: [place], blind right eye Past Surgical History: Other Additional Past Surgical Histo: CARDIAC CATH, prostate Smoking Status: Former Smoker Alcohol Use: None Drug Use: None Adult General Chief Complaint Chief Complaint: HIP PAIN HPI HPI Patient is a 68 year old male presents to the ED with left hip/knee pain following a mechanical fall 4 days ago. He states that he was walking around a table when his foot caught the corner and he fell on his left hip. He denied any chest pain, shortness of breath, or dizziness prior to fall. He says since that time he has had sharp shooting pain that begins at his upper gluteal muscle and goes down the back of his leg to his knee. He also has separate pain in the groin on that left side. He denied any head trauma or loss of consciousness with his fall. Since the fall he denies any headache, change in vision, dizziness, or weakness which is increased from his baseline. He states that the pain is worsened with movement of the extremity and aspirin cause slight improvement. He rates the pain as an 8-10 out of 10 at its worse especially in his left knee. He has significant edema bilaterally in his lower extremities Review of Systems Review of Systems Constitutional: Denies fever or chills Eyes: Denies change in vision or double vision Respiratory: Admits chronic cough; denies shortness of breath Musculoskeletal: Denies back pain, admits left hip pain and left knee pain Integument: Denies rash; admits multiple ecchymosis bilateral lower extremities Neurologic: Denies headache, focal weakness or sensory changes Complete systems were reviewed and found to be within normal limits, except as documented in this note. Family History Family History No pertinent family history Current Medications Current Medications Current Medications Medications (Trade) Dose Ordered Sig/Placido Start Time Stop Time Status Last Admin Dose Admin Acetaminophen/ Hydrocodone Bitart (Lortab 5/325) 1 tab 1X ONCE 07/22/19 09:15 07/22/19 09:16 DC 07/22/19 09:20 1 TAB Allergies Allergies Allergies Coded Allergies Type Severity Reaction Last Updated Verified No Known Drug Allergies 08/07/16 No Physical Exam Physical Exam Constitutional: Well developed, well nourished, no acute distress, uncomfortable appearance HENT: Normocephalic, atraumatic, oropharynx moist Eyes: Conjunctiva normal, no discharge Neck: Normal range of motion, no midline tenderness, supple Cardiovascular: Heart rate normal, regular rhythm Lungs & Thorax: Bilateral breath sounds clear to auscultation, no wheezing Abdomen: Soft, no tenderness; pelvis stable and nontender Skin: Warm, dry, no erythema, no rash, ecchymosis present bilaterally on knees and on left posterior thigh. Back: No midline tenderness, no decreased range of motion above baseline Extremities: Significant bilateral lower extremity edema. Tenderness to palpation of left knee anteriorly and laterally, tenderness to palpation of left superior/lateral gluteal region, knee and hip structurally stable on exam. Neurologic: Alert and oriented, normal motor function, normal sensory function, no focal deficits noted Psychologic: Affect normal, judgment normal Current Patient Data Vital Signs Vital Signs Date Time Temp Pulse Resp B/P (MAP) Pulse Ox O2 Delivery O2 Flow Rate FiO2 07/22/19 09:20 18 99 Room Air 07/22/19 09:01 78 138/76 (96) 07/22/19 08:21 97.8 97.8 EKG EKG [] Radiology/Procedures Radiology/Procedures PROCEDURE: HIP LEFT 2V WITH PELVIS & LEFT KNEE 3V Examination: Frontal view of the pelvis with 2 views of the left hip and 3 views of the left knee HISTORY: Fall, pain COMPARISON: 07/11/2019 FINDINGS: Severe joint space loss identified in the medial, lateral, patellofemoral compartments of the knee joint. Examination limited osseous demineralization.The bilateral femoral heads within the acetabula. Moderate joint space loss identified in the bilateral hip joint likely degenerative changes. IMPRESSION: 1. Severe tricompartmental degenerative changes knee joint. 2. Moderate degenerative changes bilateral hip joints. Electronically signed by: Dez Sue MD (07/22/2019 9:35 AM) [id number] Course & Med Decision Making Course & Med Decision Making Imaging studies reviewed. (See chart for details) 68-year-old male presents to the ED with left hip/knee pain after a mechanical fall 4 days prior. He states that he was walking around a table at his local library when his foot hooked the corner and he fell on his left hip. He denied any chest pain, shortness of breath, or dizziness prior to fall. He states that his pain is sharp in nature and has been worsening over the past 4 days. He states that movement of the extremity worsens the pain and that aspirin slightly improved the pain. He denies headache, neck pain, or motor/sensory changes. He rates his pain as a 8-10 out of 10, worse at his left knee with movement. In the ED he was worked up for possible fracture versus left knee/hip contusion and sprain. Left Hip/pelvic x-ray was ordered without acute fracture or dislocation but showed degenerative changes, Patient was given hydrocodone for pain with interval improvement. COSMO bandage applied to knee. Patient stable for discharge with outpatient follow-up with PCP/Orthopedics. Orthopedic referral provided. Discussed findings and plan with patient and family, who acknowledge understanding and agreement. Dragon Disclaimer Dragon Disclaimer This electronic medical record was generated, in whole or in part, using a voice recognition dictation system. Splinting Splinting : Location: Left knee Pre-Made Type: COSMO bandage Pre-Proc Neuro Vasc Exam: normal Post-Proc Neuro Vasc Exam: normal, unchanged from pre-exam Departure Departure Impression: Primary Impression: Fall Additional Impressions: Sprain of left hip Contusion of knee, left Arthritis Disposition: HOME, SELF-CARE Condition: STABLE Referrals: NO PCP (PCP) JOAQUÍN AGOSTO II, MD Patient Instructions: Arthritis, Nonspecific, [id number], Fall Prevention and Home Safety, [id number], Hip Pain, Knee Pain, [id number], Knee Wraps (Elastic Bandage) and RICE Scripts Hydrocodone/Apap 5-325 (NORCO 5-325 TABLET) 1 Each Tablet 0.5-1 TAB PO PRN Q6HRS PRN for PAIN, #10 TAB 0 Refills Prov: JODI NGERON DO 07/22/19 Problem Qualifiers Primary Impression: Fall Encounter type: initial encounter Qualified Codes: W19.XXXA - Unspecified fall, initial encounter Additional Impressions: Sprain of left hip Encounter type: initial encounter Qualified Codes: S73.102A - Unspecified sprain of left hip, initial encounter Contusion of knee, left Encounter type: initial encounter Qualified Codes: S80.02XA - Contusion of left knee, initial encounter JODI NEGRON DO Jul 22, 2019 08:53
[2019-07-22] MEDS ORDERED: HYDROcodone/APAP 5/325MG 1 TAB TABLET PO ONE (09:15)
--- NOTE | 2019-07-22 09:38 | RAD ---
Examination: Frontal view of the pelvis with 2 views of the left hip and 3 views of the left knee HISTORY: Fall, pain COMPARISON: 07/11/2019 FINDINGS: Severe joint space loss identified in the medial, lateral, patellofemoral compartments of the knee joint. Examination limited osseous demineralization.The bilateral femoral heads within the acetabula. Moderate joint space loss identified in the bilateral hip joint likely degenerative changes. IMPRESSION: 1. Severe tricompartmental degenerative changes knee joint. 2. Moderate degenerative changes bilateral hip joints. Electronically signed by: Dez Sue MD (07/22/2019 9:35 AM) [id number]
[2019-07-22] MEDS ORDERED: HYDR-3164 PO (09:55)
[2019-07-22 10:01] VITALS: BP 143/69
== END 2019-07-22 10:20 | disposition home or self-care (01) ==
LOC: ER 07:46
DX: S73.192A Other sprain of left hip, initial encounter (principal); S80.02XA Contusion of left knee, initial encounter; R10.32 Left lower quadrant pain; R05 Cough; M19.90 Unspecified osteoarthritis, unspecified site; I48.20 Chronic atrial fibrillation, unspecified; I11.0 Hypertensive heart disease with heart failure; I50.9 Heart failure, unspecified; N28.9 Disorder of kidney and ureter, unspecified; E78.00 Pure hypercholesterolemia, unspecified; Z98.890 Other specified postprocedural states; Z87.891 Personal history of nicotine dependence; W18.39XA Other fall on same level, initial encounter; Y93.89 Activity, other specified; Y92.89 Other specified places as the place of occurrence of the external cause; Y99.8 Other external cause status
CPT/HCPCS: 73502; 73562; 99284

== ENCOUNTER 2020-06-30 13:43 | Inpatient (IN) | payer OTHER ==
[~2020-06-30] VITALS: Ht 182.9 cm; Wt 103.9 kg
[~2020-06-30 13:43] MED LIST changes: +AMLO-186 PO; -AMLO5TAB10 PO; -ASPI-612 PO; +ASPI-886 PO; +HYDR-3164 PO; -ISOS30TA4 PO; +ISOS30TA68 PO; -LISI-338 PO; +LISI-517 PO; +LISI10TA16 PO; -LISI10TA2 PO
[2020-06-30] MEDS ORDERED: DIPH,PERTUSS(ACELL),TET VAC/PF 0.5 ML SYRINGE. VAX IM ONE ×2 (14:30)
[2020-06-30 15:07] LABS: BASO # 0.1 x10^3/uL (0.0-0.2); BASO % 1 % (0-3); EOS # 0.1 x10^3/uL (0.0-0.7); EOS % 2 % (0-3); HEMATOCRIT 44.5 % (39.0-53.0); HEMOGLOBIN 15.2 g/dL (13.0-17.5); LYMPH # 0.7 x10^3/uL (1.0-4.8); LYMPH % 10 % (24-48); MEAN CORPUSCULAR HEMOGLOBIN 31 pg (25-35); MEAN CORPUSCULAR HGB CONC 34 g/dL (31-37); MEAN CORPUSCULAR VOLUME 89 fL (79-100); MONO # 0.6 x10^3/uL (0.0-1.1); MONO % 8 % (0-9); NEUT # 5.3 x10^3/uL (1.8-7.7); NEUT % 79 % (31-73); PLATELET COUNT 236 x10^3/uL (140-400); RED CELL DISTRIBUTION WIDTH 14.5 % (11.5-14.5); WHITE BLOOD COUNT 6.8 x10^3/uL (4.0-11.0)
--- NOTE | 2020-06-30 15:20 | RAD ---
XR KNEE 3 VIEWS_RT History: Reason: fall pain RT KNEE / Spl. Instructions: / History: Technique: 3 views right knee. Comparison: None. Findings: Normal alignment. No fracture. Anterior knee soft tissue swelling. No knee joint effusion. Underneath degenerative changes most prominent within the lateral and patellofemoral compartments. Impression: 1. No acute osseous abnormality. 2. Anterior knee soft tissue swelling. 3. Moderate knee DJD. Electronically signed by: Que Gomes DO (06/30/2020 3:18 PM) [id number]
[2020-06-30 15:23] LABS: CALCIUM 9.4 mg/dL (8.5-10.1); CREATININE 1.3 mg/dL (0.7-1.3); GFR 54.4; POTASSIUM 3.9 mmol/L (3.5-5.1)
--- NOTE | 2020-06-30 15:25 | RAD ---
XR BILATERAL HIP (WITH OR WITHOUT PELVIS) 2 VIEWS_RIGHT History: Reason: fall pain RT HIP / Spl. Instructions: / History: Technique: AP view the pelvis and 2 additional views of the right hip. Comparison: July 22, 2019 Findings: Normal alignment. No dislocation. No acute fracture. Mild to moderate bilateral hip DJD. Lower lumbar spondylosis. Vascular calcifications.. Density overlying the left hip. Impression: 1. No acute osseous abnormalities. 2. Density overlying the left hip may relate to external artifact. If concern for left hip pain, rec ommend dedicated left hip radiographs. Electronically signed by: Que Gomes DO (06/30/2020 3:23 PM) [id number]
[2020-06-30 15:29] LABS: ALBUMIN 3.4 g/dL (3.4-5.0); ALBUMIN/GLOBULIN RATIO 0.8 (1.0-1.7); TOTAL BILIRUBIN 0.7 mg/dL (0.2-1.0); TOTAL PROTEIN 7.8 g/dL (6.4-8.2)
--- NOTE | 2020-06-30 16:02 | RAD ---
EXAM: CT HEAD WITHOUT IV CONTRAST CLINICAL HISTORY: Reason: fall pain / Spl. Instructions: / History: COMPARISON: None. TECHNIQUE: Routine CT of the head without contrast. Soft tissues and bone windows were reviewed. PQRS compliance statement - One or more of the following individualized dose reduction techniques wer e utilized for this study: 1. Automated exposure control 2. Adjustment of the mA and/or kV according to patient size 3. Use of iterative reconstruction technique FINDINGS: There is no evidence of hemorrhage, mass or extra-axial fluid collection. Deutsch-white differentiation is maintained with no evidence of edema. Subcortical, periventricular as w ell as the white matter foci of hypoattenuation likely changes of chronic small vessel disease. Lucen cy within the right basal ganglia likely old lacunar infarct. There is no mass effect or shift of the intracranial structures. The ventricles, basilar cisterns and cortical sulci are normal in size and configuration for the angie ents stated age. The cerebellum and brainstem are unremarkable. The calvarium demonstrates no evidence of fracture or focal lesion. There is normal aeration of the visualized paranasal sinuses and mastoid air cells. The visualized portions of the orbits are normal. Soft tissue swelling and scalp hematoma in the occipital region. IMPRESSION: 1. No evidence for acute intracranial process. 2. White matter changes likely chronic small vessel disease. EXAM: CT CERVICAL SPINE WITHOUT IV CONTRAST CLINICAL HISTORY: Reason: fall pain / Spl. Instructions: / History: COMPARISON: None available. TECHNIQUE: Helical CT of the cervical spine was performed. Axial, coronal and sagittal reformatted im ages were also performed. PQRS compliance statement - One or more of the following individualized dose reduction techniques wer e utilized for this study: 1. Automated exposure control 2. Adjustment of the mA and/or kV according to patient size 3. Use of iterative reconstruction technique FINDINGS: Vertebral body heights are preserved. Moderate to severe C5-6 and C6-7 disc height loss. Small medical case worker ior disc osteophyte complex at these levels. Multilevel facet degenerative changes. Background of con genital canal narrowing C5-C7. Asymmetric left tonsillar prominence can be correlated with clinical e xamination. IMPRESSION: 1. Multilevel spondylosis as above 2. Negative acute fracture or subluxation. 3. Asymmetric left tonsillar prominence can be correlated with clinical examination. Electronically signed by: Elpidio Yao MD (06/30/2020 4:00 PM) NANCY
--- NOTE | 2020-06-30 16:13 | RAD ---
Exam: CT thoracic spine without contrast CT lumbar spine without contrast CLINICAL HISTORY: Reason: fall pain / Spl. Instructions: / History: COMPARISON: None available. TECHNIQUE: This CT study consists of contiguous axial images performed through the thoracic and lumba r spine. Sagittal and coronal reformatted images were also performed. PQRS compliance statement - One or more of the following individualized dose reduction techniques wer e utilized for this study: 1. Automated exposure control 2. Adjustment of the mA and/or kV according to patient size 3. Use of iterative reconstruction technique FINDINGS: Thoracic spine: Vertebral body heights are preserved. Rightward curvature of the thoracic spine apex T7. Mild disc he ight loss centered at the mid thoracic spine. Linear and bandlike opacities in the left lower lobe li paramjit scarring/atelectasis. Gallbladder wall calcification or adherent calcified gallstones. Lumbar spine: 5 nonrib-bearing lumbar-type vertebral bodies. Vertebral body heights are preserved. Mild L4-5 and L5 -S1 disc height loss. Bulky anterior endplate osteophytes are seen at multiple levels. No spondylolis thesis. Mild multilevel facet degenerative changes are seen. Moderate fatty atrophy of the left iliopsoas. Vascular calcifications are seen. Multiple nonobstructi ng right renal calculi. Colonic diverticulosis. IMPRESSION: 1. Multilevel degenerative changes of the thoracic and lumbar spine 2. Negative acute fracture or subluxation of the thoracic or lumbar spine. Electronically signed by: Elpidio Yao MD (06/30/2020 4:11 PM) NANCY
--- NOTE | 2020-06-30 16:22 | RAD ---
EXAM: AP pelvis, AP and lateral views left hip DATE: 06/30/2020 3:47 PM INDICATION: Reason: fall pain / Spl. Instructions: / History: COMPARISON: 06/30/2020 FINDINGS: Ossification of the left iliopsoas tendon. No acute fracture or dislocation. Joint spaces are preserv ed. Moderate to large volume colonic stool content. Degenerative changes of lower lumbar spine. Decre ased bone mineral density. IMPRESSION: 1. No acute fracture or dislocation. 2. 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 Electronically signed by: Elpidio Yao MD (06/30/2020 4:20 PM) NANCY
[2020-06-30 16:59] LABS: BILIRUBIN,URINE NEGATIVE (NEG); CLARITY,URINE CLEAR; COLOR,URINE YELLOW; NITRITE,URINE NEGATIVE (NEG); PH,URINE 6.5 (<5.0-8.0); PROTEIN,URINE NEGATIVE (NEG-TRACE)
--- NOTE | 2020-06-30 17:02 | PHYS DOC ---
Past Medical History Past Medical History: Glaucoma, Heart Disease, Vascular Disease Additional Past Medical Histor: [place], blind right eye Past Surgical History: Pacemaker, Other Additional Past Surgical Histo: PROSTATE Smoking Status: Never Smoker Alcohol Use: None Drug Use: None General Adult EDM: Chief Complaint: MECHANICAL FALL HPI: HPI: Patient is a 69 year old male with a history of glaucoma, peripheral vascular disease, who presents to the ED today to be evaluated after falling. Patient reports he tripped on his feet and fell hitting his head on the ground. Denies any loss of consciousness. He reports is on a baby aspirin. Patient is also complaining of right mild hip pain and right mild knee pain. Symptoms worse on weightbearing. Describes the pain as sharp and intermittent. Patient appears very unkept, he is smelling. Has dirt all over his body including possible stool on his shoes. EMS report patient lives in a house with no running water and electricity. Review of Systems: Review of Systems: Constitutional: Denies fever or chills. [] Eyes: Denies change in visual acuity. [] HENT: Denies nasal congestion or sore throat. [] Respiratory: Denies cough or shortness of breath. [] Cardiovascular: Denies chest pain or edema. [] GI: Denies abdominal pain, nausea, vomiting, bloody stools or diarrhea. [] : Denies dysuria. [] Musculoskeletal: Denies back pain or joint pain. [] Integument: Denies rash. [] Neurologic: Reports falling and hitting his head. Denies headache, focal weakness or sensory changes. [] Psychiatric: Denies depression or anxiety. [] Heart Score: Risk Factors: Risk Factors: DM, Current or recent (<one month) smoker, HTN, HLP, family history of CAD, obesity. Risk Scores: Score 0 - 3: 2.5% MACE over next 6 weeks - Discharge Home Score 4 - 6: 20.3% MACE over next 6 weeks - Admit for Clinical Observation Score 7 - 10: 72.7% MACE over next 6 weeks - Early Invasive Strategies Current Medications: Current Medications Medications (Trade) Dose Ordered Sig/Placido Start Time Stop Time Status Last Admin Dose Admin Diphtheria/ Tetanus/Acell Pertussis (ADACEL TDap SYRINGE) 0.5 ml STK-MED ONCE 06/30/20 14:30 06/30/20 14:31 DC Allergies: Allergies: Allergies Coded Allergies Type Severity Reaction Last Updated Verified No Known Drug Allergies 08/07/16 No Physical Exam: PE: Constitutional: Patient appears very unkept, very smelly, has dirt covering most of his body including hands and lower extremity. Questionable stool on his shoes. Well developed, well nourished, no acute distress, non-toxic appearance. [] HENT: Normocephalic, atraumatic, bilateral external ears normal, oropharynx moist, no oral exudates, nose normal. [] Eyes: PERRLA, EOMI, conjunctiva normal, no discharge. [] Neck: Normal range of motion, no tenderness, supple, no stridor. [] Cardiovascular:Heart rate regular rhythm, no murmur [] Lungs & Thorax: Bilateral breath sounds clear to auscultation [] Abdomen: Bowel sounds normal, soft, no tenderness, no masses, no pulsatile masses. [] Skin: Warm, dry, no erythema, no rash. Abrasion noted on the left venegas. Back: No tenderness, no CVA tenderness. [] Extremities: No tenderness, no cyanosis, no clubbing, ROM intact, bilateral lower extremities with chronic swelling consistent with lymphedema. Neurologic: Alert and oriented X 3, normal motor function, normal sensory function, no focal deficits noted. Cranial nerves II through XII intact. Small contusion noted on posterior occipital Psychologic: Affect normal, judgement normal, mood normal. [] Current Patient Data: Labs: Laboratory Tests Test 06/30/20 14:58 White Blood Count 6.8 x10^3/uL (4.0-11.0) Red Blood Count 5.00 x10^6/uL (4.30-5.70) Hemoglobin 15.2 g/dL (13.0-17.5) Hematocrit 44.5 % (39.0-53.0) Mean Corpuscular Volume 89 fL (79-100) Mean Corpuscular Hemoglobin 31 pg (25-35) Mean Corpuscular Hemoglobin Concent 34 g/dL (31-37) Red Cell Distribution Width 14.5 % (11.5-14.5) Platelet Count 236 x10^3/uL (140-400) Neutrophils (%) (Auto) 79 % (31-73) H Lymphocytes (%) (Auto) 10 % (24-48) L Monocytes (%) (Auto) 8 % (0-9) Eosinophils (%) (Auto) 2 % (0-3) Basophils (%) (Auto) 1 % (0-3) Neutrophils # (Auto) 5.3 x10^3/uL (1.8-7.7) Lymphocytes # (Auto) 0.7 x10^3/uL (1.0-4.8) L Monocytes # (Auto) 0.6 x10^3/uL (0.0-1.1) Eosinophils # (Auto) 0.1 x10^3/uL (0.0-0.7) Basophils # (Auto) 0.1 x10^3/uL (0.0-0.2) Sodium Level 142 mmol/L (136-145) Potassium Level 3.9 mmol/L (3.5-5.1) Chloride Level 104 mmol/L (98-107) Carbon Dioxide Level 28 mmol/L (21-32) Anion Gap 10 (6-14) Blood Urea Nitrogen 15 mg/dL (8-26) Creatinine 1.3 mg/dL (0.7-1.3) Estimated GFR (Cockcroft-Gault) 54.4 BUN/Creatinine Ratio 12 (6-20) Glucose Level 122 mg/dL (70-99) H Calcium Level 9.4 mg/dL (8.5-10.1) Total Bilirubin 0.7 mg/dL (0.2-1.0) Aspartate Amino Transferase (AST) 18 U/L (15-37) Alanine Aminotransferase (ALT) 30 U/L (16-63) Alkaline Phosphatase 105 U/L (46-116) Total Protein 7.8 g/dL (6.4-8.2) Albumin 3.4 g/dL (3.4-5.0) Albumin/Globulin Ratio 0.8 (1.0-1.7) L Laboratory Tests 06/30/20 14:58 Laboratory Tests 06/30/20 14:58 Vital Signs: Vital Signs Date Time Temp Pulse Resp B/P (MAP) Pulse Ox O2 Delivery O2 Flow Rate FiO2 06/30/20 13:54 97.9 62 16 152/73 (99) 99 Room Air 97.9 EKG: EKG: [] Radiology/Procedures: Radiology/Procedures: []PROCEDURE: CT THORACIC SPINE WO CONTRAST Exam: CT thoracic spine without contrast CT lumbar spine without contrast CLINICAL HISTORY: Reason: fall pain / Spl. Instructions: / History: COMPARISON: None available. TECHNIQUE: This CT study consists of contiguous axial images performed through the thoracic and lumbar spine. Sagittal and coronal reformatted images were also performed. PQRS compliance statement - One or more of the following individualized dose reduction techniques were utilized for this study: 1. Automated exposure control 2. Adjustment of the mA and/or kV according to patient size 3. Use of iterative reconstruction technique FINDINGS: Thoracic spine: Vertebral body heights are preserved. Rightward curvature of the thoracic spine apex T7. Mild disc height loss centered at the mid thoracic spine. Linear and bandlike opacities in the left lower lobe likely scarring/atelectasis. Gallbladder wall calcification or adherent calcified gallstones. Lumbar spine: 5 nonrib-bearing lumbar-type vertebral bodies. Vertebral body heights are preserved. Mild L4-5 and L5-S1 disc height loss. Bulky anterior endplate osteophytes are seen at multiple levels. No spondylolisthesis. Mild multilevel facet degenerative changes are seen. Moderate fatty atrophy of the left iliopsoas. Vascular calcifications are seen. Multiple nonobstructing right renal calculi. Colonic diverticulosis. IMPRESSION: 1. Multilevel degenerative changes of the thoracic and lumbar spine 2. Negative acute fracture or subluxation of the thoracic or lumbar spine. Electronically signed by: Elpidio Aguilar MD (06/30/2020 4:11 PM) [facility] DICTATED and SIGNED BY: ELPIDIO AGUILAR MD DATE: 06/30/20 [id number] 0 PROCEDURE: KNEE RIGHT 3V XR KNEE 3 VIEWS_RT History: Reason: fall pain RT KNEE / Spl. Instructions: / History: Technique: 3 views right knee. Comparison: None. Findings: Normal alignment. No fracture. Anterior knee soft tissue swelling. No knee joint effusion. Underneath degenerative changes most prominent within the lateral and patellofemoral compartments. Impression: 1. No acute osseous abnormality. 2. Anterior knee soft tissue swelling. 3. Moderate knee DJD. Electronically signed by: Que Gomes DO (06/30/2020 3:18 PM) [id number] DICTATED and SIGNED BY: QUE GOMES DO DATE: 06/30/20 [id number] 0 PROCEDURE: CT HEAD AND CERVICAL SPINE WO EXAM: CT HEAD WITHOUT IV CONTRAST CLINICAL HISTORY: Reason: fall pain / Spl. Instructions: / History: COMPARISON: None. TECHNIQUE: Routine CT of the head without contrast. Soft tissues and bone windows were reviewed. PQRS compliance statement - One or more of the following individualized dose reduction techniques were utilized for this study: 1. Automated exposure control 2. Adjustment of the mA and/or kV according to patient size 3. Use of iterative reconstruction technique FINDINGS: There is no evidence of hemorrhage, mass or extra-axial fluid collection. Deutsch-white differentiation is maintained with no evidence of edema. Subcortical, periventricular as well as the white matter foci of hypoattenuation likely changes of chronic small vessel disease. Lucency within the right basal ganglia likely old lacunar infarct. There is no mass effect or shift of the intracranial structures. The ventricles, basilar cisterns and cortical sulci are normal in size and configuration for the patients stated age. The cerebellum and brainstem are unremarkable. The calvarium demonstrates no evidence of fracture or focal lesion. There is normal aeration of the visualized paranasal sinuses and mastoid air cells. The visualized portions of the orbits are normal. Soft tissue swelling and scalp hematoma in the occipital region. IMPRESSION: 1. No evidence for acute intracranial process. 2. White matter changes likely chronic small vessel disease. EXAM: CT CERVICAL SPINE WITHOUT IV CONTRAST CLINICAL HISTORY: Reason: fall pain / Spl. Instructions: / History: COMPARISON: None available. TECHNIQUE: Helical CT of the cervical spine was performed. Axial, coronal and sagittal reformatted images were also performed. PQRS compliance statement - One or more of the following individualized dose reduction techniques were utilized for this study: 1. Automated exposure control 2. Adjustment of the mA and/or kV according to patient size 3. Use of iterative reconstruction technique FINDINGS: Vertebral body heights are preserved. Moderate to severe C5-6 and C6-7 disc height loss. Small posterior disc osteophyte complex at these levels. Multilevel facet degenerative changes. Background of congenital canal narrowing C5-C7. Asymmetric left tonsillar prominence can be correlated with clinical examination. IMPRESSION: 1. Multilevel spondylosis as above 2. Negative acute fracture or subluxation. 3. Asymmetric left tonsillar prominence can be correlated with clinical examination. Electronically signed by: Elpidio Aguilar MD (06/30/2020 4:00 PM) [facility] DICTATED and SIGNED BY: ELPIDIO AGUILAR MD DATE: 06/30/20 [id number] 0 PROCEDURE: HIP LEFT 2V WITH PELVIS EXAM: AP pelvis, AP and lateral views left hip DATE: 06/30/2020 3:47 PM INDICATION: Reason: fall pain / Spl. Instructions: / History: COMPARISON: 06/30/2020 FINDINGS: Ossification of the left iliopsoas tendon. No acute fracture or dislocation. Joint spaces are preserved. Moderate to large volume colonic stool content. Degenerative changes of lower lumbar spine. Decreased bone mineral density. IMPRESSION: 1. No acute fracture or dislocation. 2. 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 Electronically signed by: Elpidio Aguilar MD (06/30/2020 4:20 PM) NANCY DICTATED and SIGNED BY: ELPIDIO AGUILAR MD DATE: 06/30/20 [id number] 0 PROCEDURE: HIP RIGHT 2V WITH PELVIS XR BILATERAL HIP (WITH OR WITHOUT PELVIS) 2 VIEWS_RIGHT History: Reason: fall pain RT HIP / Spl. Instructions: / History: Technique: AP view the pelvis and 2 additional views of the right hip. Comparison: July 22, 2019 Findings: Normal alignment. No dislocation. No acute fracture. Mild to moderate bilateral hip DJD. Lower lumbar spondylosis. Vascular calcifications.. Density overlying the left hip. Impression: 1. No acute osseous abnormalities. 2. Density overlying the left hip may relate to external artifact. If concern for left hip pain, recommend dedicated left hip radiographs. Electronically signed by: Que Gomes DO (06/30/2020 3:23 PM) [id number] DICTATED and SIGNED BY: QUE GOMES DO DATE: 06/30/20 [id number] 0 Course & Med Decision Making: Course & Med Decision Making Pertinent Labs and Imaging studies reviewed. (See chart for details) This is a 69-year-old male patient presenting to the ED today to be evaluated after falling. No loss of consciousness. Hit the head on the ground. Patient appears very unkept. He is smelling, has that covering his hands, lower extremities, chest. Has questionable stool on his shoes. EMS reports patient lives in a house with no running water and electricity. CT of the head, cervical spine, thoracic and lumbar spine are negative for any acute findings, bilateral hip x-rays including pelvis, right knee x-rays are negative for any acute findings. Spoke with Dr. Vazquez who accepted patient for admission Timmy Disclaimer: Timmy Disclaimer: This electronic medical record was generated, in whole or in part, using a voice recognition dictation system. Departure Departure Impression: Primary Impression: Fall Qualified Codes: W19.XXXA - Unspecified fall, initial encounter Additional Impressions: Contusion of right knee Qualified Codes: S80.01XA - Contusion of right knee, initial encounter Right hip pain Head contusion Qualified Codes: S00.03XA - Contusion of scalp, initial encounter Self-care deficit Disposition: 09 ADMITTED INPT THIS HOSP Condition: STABLE Referrals: NO PCP (PCP) JAZZMINE BHATT APRN Jun 30, 2020 17:01
[2020-06-30 17:21] LABS: AMORPHOUS SEDIMENT,UR PRESENT /HPF; BACTERIA,URINE FEW /HPF (0-FEW)
[2020-06-30 17:22] LABS: RBC,URINE 0 /HPF (0-2); WBC,URINE TNTC /HPF (0-4)
[2020-06-30] MEDS ORDERED: ONDANSETRON PF 4 MG/2 ML VIAL. IV PRN (17:30)
[2020-06-30] MEDS ORDERED: ACETAMINOPHEN 325 MG TABLET. PO PRN (17:30)
--- NOTE | 2020-06-30 18:36 | HP ---
ADMIT DATE: 06/30/2020 CHIEF COMPLAINT: Fall. HISTORY OF PRESENT ILLNESS: The patient is a pleasant 69-year-old male who lives at home with his brother, Ritesh. Apparently, there is no water. There is no electricity. There is staying warm with blankets. I am not even sure if they have food. I guess he fell today, someone called the ambulance. When he got to the ER, he was extremely dirty, has very poor hygiene. His legs have a massive swelling. I suspect he has some heart failure as well. I suspect the patient is going to need long-term care. The patient will be admitted for further evaluation. PAST MEDICAL HISTORY: Glaucoma, coronary artery disease, vascular disease, hard of hearing, blind right eye and prostate issues. ALLERGIES: None. FAMILY HISTORY: Diabetes. SOCIAL HISTORY: He lives at home with his brother Ritesh. There is no water or electricity, they are staying warm with blankets. 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 MEDICATIONS: Reviewed, please refer to the MRAD. REVIEW OF SYSTEMS: GENERAL: No history of weight change, weakness or fevers. SKIN: No bruising, hair changes or rashes. EYES: No blurred, double or loss of vision. NOSE AND THROAT: No history of nosebleeds, hoarseness or sore throat. HEART: No history of palpitations, chest pain or shortness of breath on exertion. LUNGS: Denies cough, hemoptysis, wheezing or shortness of breath. GASTROINTESTINAL: Denies changes in appetite, nausea, vomiting, diarrhea or constipation. GENITOURINARY: No history of frequency, urgency, hesitancy or nocturia. NEUROLOGIC: He complains of falls. PSYCHIATRIC: No history of panic, anxiety or depression. ENDOCRINE: No history of heat or cold intolerance, polyuria or polydipsia. EXTREMITIES: He complains of severe edema. PHYSICAL EXAMINATION: VITALS: Within normal limits and are stable. GENERAL: Severely swollen and has a lot of old skin on his hands, face, and extremities. Appears very dirty, poorly kept. HEENT: Normal cephalic atraumatic, external auditory canals are patent EYES: Extraocular muscles are intact, pupils are equally round and reactive to light and accommodation MUSCULOSKELETAL: Well developed, well nourished, good range of motion ENDOCRINE: No thyromegaly was palpated LYMPHATICS: No cervical chain or axillary nodes were noted HEMATOPOIETIC: No bruising NECK: Supple, no JVD, no thyromegaly was noted. LUNGS: Clear to auscultation in all lung costello without rhonchi or wheezing. HEART: RRR, S1, S2 present. Peripheral pulses intact, no obvious murmurs were noted. ABDOMEN: Soft, nontender. Positive bowel sounds no organomegaly, normal bowel sounds. EXTREMITIES: He has 3 to 4+ edema. NEUROLOGIC: He is weak. PSYCHIATRIC: He is depressed. SKIN: He is very poorly kept and is very hyperkeratotic and has dirt on his skin as well. VASCULAR: Good capillary refill, neurovascular bundle appears to be intact. LABORATORY DATA: Electrolytes are normal. Hematology is normal. Urinalysis, large amount of leukocyte esterase with too numerous to count white cells. ASSESSMENT AND PLAN: Fall, UTI, massive edema, suspect probable heart failure. The patient has been admitted. We will check a set of cardiac enzymes and a BNP level. Consult Cardiology, cardiac monitoring, get a chest x-ray, home meds, DVT prophylaxis, IV antibiotics. shared services representative consult. PROGNOSIS: Guarded. TEE ORTIZ DO DR: AMIRA/tara JOB#: [id number] / [id number]
[2020-06-30 19:10] VITALS: BP 134/84
[2020-06-30] MEDS: cefTRIAXone IV Push 1 GM VIAL. IVP SCH (22:12)
[2020-06-30] MEDS: BRIMONIDINE 0.2% OPHTH SOLUTION 5ML BOTTLE. OU SCH (22:12)
[2020-06-30] MEDS: FUROSEMIDE 40 MG/4 ML VIAL. IVP SCH (22:12)
[2020-06-30] MEDS: ATORVASTATIN CALCIUM 20 MG TABLET PO SCH (22:12)
[2020-06-30] MEDS: TIMOLOL 0.5% OPHTH SOLUTION 5ML BOTTLE. OU SCH (22:12)
[2020-06-30] MEDS: LATANOPROST 0.005% OPHTH SOLUTION 2.5ML BOTTLE. OU SCH (22:12)
[2020-06-30 23:00] VITALS: BP 138/75
--- NOTE | 2020-06-30 23:00 | NUR ---
ADMIT NOTE The patient, JOSE MERCADO, 69 y/o, M admitted by TEE ORTIZ III, DO, was given written information regarding hospital policies, unit procedures and contact persons. Patient orientated to room, plan of care discussed, and admit packet reviewed. sled maker and case management consulted. Allergies verified, MD notified and home medications restarted. Patient's socks were stuck to bilateral feet and had to be cut in order to remove and shorts soiled; patient aware that items were disposed of on admit. All other patient's belongings placed in closet in room. Patient in bed, bed in lowest/locked position, bed alarm active, and call light within reach; no other needs voiced at this time.
[2020-07-01 02:50] VITALS: BP 120/72
[2020-07-01 07:00] VITALS: BP 124/63
[2020-07-01] MEDS: ASPIRIN ENTERIC COATED 81 MG TABLET.DR. PO SCH (08:32)
[2020-07-01] MEDS: FUROSEMIDE 40 MG/4 ML VIAL. IVP SCH (08:33)
[2020-07-01] MEDS: BRIMONIDINE 0.2% OPHTH SOLUTION 5ML BOTTLE. OU SCH ×2 (08:36→20:41)
[2020-07-01] MEDS: TIMOLOL 0.5% OPHTH SOLUTION 5ML BOTTLE. OU SCH ×2 (08:36→20:41)
[2020-07-01] MEDS ORDERED: FLU VACC QS 2020-21(6MOS+)/PF 0.5 ML SYRINGE. VAX IM ONE (09:00)
--- NOTE | 2020-07-01 10:18 | NUR ---
SW following. Discussed with RN, pt from home with brother, room air, cardiac diet. PT/OT ordered. SW consulted for poor living conditions and reports of no utilities for 3 years, physician wanting fdc care placement. SW to meet with pt to discuss. SW requested RN do a COVID test for potential placement. SW will continue to follow. Addendum: 07/01/20 at 1350 by FRANKI LUBIN SW met with pt to discuss home living conditions. Pt reported he lives with his brother and they do not have heat, water or electrical. Pt reported they do not have enough money to pay for utilities. Pt uses wet wipes to bathe, has a walker and is able to get food and medications. Pt and his brother use a gas cooker to cook meals. The car is broken, does not have a battery, so if they need to go anywhere, they try to find a ride or walk. There is one neighbor who helps occasionally. Pt considering going to termite exterminator care if his brother can also go, he does not want to go without him. Pt and pt's brother do not have a phone, so no way to reach brother. Per RN, pt's brother called today from the neighbors phone, but did not provide phone number. Pt's brother is going to call back tomorrow (07/02/20), SW will attempt to be able to speak with him then. TRISTIAN planning on making a hotline pending conversation with pt's brother about going to a facility. RN notified. TRISTIAN will continue to follow. Addendum: 07/01/20 at 1539 by FRANKI LUBIN Chasity Guaman for adult protective services visited with pt and discussed with this SWer. There are already open cases on this pt and his brother. TRISTIAN explained about pt being potentially willing to go to a fdc if his brother would go to. Chasity explained pt's brother also has medicaid so should have a termite exterminator care benefit. Campbell reported pt and his brother are 12 years behind on the taxes for their home, and are expecting it to be taken sometime soon. Chasity is going to have someone go to the home tomorrow (07/02/20) and call this SWer with the brother so we can discuss fdc placement. TRISTIAN advised Chasity, this SWer cannot get pt's brother into a fdc as he is not a patient, but we could co-ordinate and APS can work on it from home. Discussed with RN. TRISTIAN will continue to follow. Addendum: 07/01/20 at 1619 by FRANKI LUBIN [facility]) called SW with pt's brother Ritesh on the phone. TRISTIAN, Ritesh Hightower and pt had a conversation about discharge planning. Ritesh does not want to go to a fdc, and pt does not want to be without Ritesh. Plan is for pt to discharge home to brother (and poor living conditions) and the APS worker will provide resources for them to try to do something about their home so they don't have it taken. APS is also going to provide other resources and supplies. MIKE will assist pt and his brother in applying for social security. RN notified. It will be very unlikely to find home health for pt due to pt having medicaid. TRISTIAN will continue to follow.
[2020-07-01 11:00] VITALS: BP 92/60
--- NOTE | 2020-07-01 11:14 | PDOC ---
[employer] PROGRESS NOTE Date of Service DOS: DATE: 07/01/20 TIME: 11:08 Chief Complaint Chief Complaint Head contusion s/p fall, pedal edema, UTI, potential CHF History of Present Illness History of Present Illness 07/01/2020 - pt seen and assessed at bedside - discussed pt living condition with pt - discussed w/ RN - reviewed chart - reviewed pt edema and skin - discussed with patient case manager Vitals/I&O Vitals/I&O: Vital Signs Date Time Temp Pulse Resp B/P (MAP) Pulse Ox O2 Delivery O2 Flow Rate FiO2 07/01/20 08:33 76 124/63 07/01/20 08:00 Room Air 07/01/20 07:00 99.3 16 96 99.3 I & O 06/30/20 06/30/20 07/01/20 15:00 23:00 07:00 Intake Total 350 ml Output Total 3100 ml Balance -2750 ml Physical Exam General: Alert, Oriented X3, No acute distress Heart: Regular rate, Normal S1, No murmurs Lungs: Clear Abdomen: Normal bowel sounds, Soft Extremities: No clubbing, No cyanosis Skin: Other Labs Labs: Laboratory Tests Test 06/30/20 14:58 06/30/20 16:48 07/01/20 10:01 White Blood Count 6.8 x10^3/uL (4.0-11.0) Red Blood Count 5.00 x10^6/uL (4.30-5.70) Hemoglobin 15.2 g/dL (13.0-17.5) Hematocrit 44.5 % (39.0-53.0) Mean Corpuscular Volume 89 fL (79-100) Mean Corpuscular Hemoglobin 31 pg (25-35) Mean Corpuscular Hemoglobin Concent 34 g/dL (31-37) Red Cell Distribution Width 14.5 % (11.5-14.5) Platelet Count 236 x10^3/uL (140-400) Neutrophils (%) (Auto) 79 % (31-73) Lymphocytes (%) (Auto) 10 % (24-48) Monocytes (%) (Auto) 8 % (0-9) Eosinophils (%) (Auto) 2 % (0-3) Basophils (%) (Auto) 1 % (0-3) Neutrophils # (Auto) 5.3 x10^3/uL (1.8-7.7) Lymphocytes # (Auto) 0.7 x10^3/uL (1.0-4.8) Monocytes # (Auto) 0.6 x10^3/uL (0.0-1.1) Eosinophils # (Auto) 0.1 x10^3/uL (0.0-0.7) Basophils # (Auto) 0.1 x10^3/uL (0.0-0.2) Sodium Level 142 mmol/L (136-145) Potassium Level 3.9 mmol/L (3.5-5.1) Chloride Level 104 mmol/L (98-107) Carbon Dioxide Level 28 mmol/L (21-32) Anion Gap 10 (6-14) Blood Urea Nitrogen 15 mg/dL (8-26) Creatinine 1.3 mg/dL (0.7-1.3) Estimated GFR (Cockcroft-Gault) 54.4 BUN/Creatinine Ratio 12 (6-20) Glucose Level 122 mg/dL (70-99) Calcium Level 9.4 mg/dL (8.5-10.1) Total Bilirubin 0.7 mg/dL (0.2-1.0) Aspartate Amino Transf (AST/SGOT) 18 U/L (15-37) Alanine Aminotransferase (ALT/SGPT) 30 U/L (16-63) Alkaline Phosphatase 105 U/L (46-116) Troponin I Quantitative < 0.017 ng/mL (0.000-0.055) IX-Omf-W-Type Natriuretic Peptide 358 pg/mL (0-124) Total Protein 7.8 g/dL (6.4-8.2) Albumin 3.4 g/dL (3.4-5.0) Albumin/Globulin Ratio 0.8 (1.0-1.7) Urine Collection Type Void Urine Color Yellow Urine Clarity Clear Urine pH 6.5 (<5.0-8.0) Urine Specific [place] 1.015 (1.000-1.030) Urine Protein Negative mg/dL (NEG-TRACE) Urine Glucose (UA) Negative mg/dL (NEG) Urine Ketones (Stick) Negative mg/dL (NEG) Urine Blood Negative (NEG) Urine Nitrite Negative (NEG) Urine Bilirubin Negative (NEG) Urine Urobilinogen Dipstick 1.0 mg/dL (0.2 mg/dL) Urine Leukocyte Esterase Large (NEG) Urine RBC 0 /HPF (0-2) Urine WBC Tntc /HPF (0-4) Urine Squamous Epithelial Cells Occ /LPF Urine Amorphous Sediment Present /HPF Urine Bacteria Few /HPF (0-FEW) Urine Mucus Slight /LPF Thyroid Stimulating Hormone (TSH) 4.782 uIU/mL (0.358-3.74) Review of Systems Review of Systems: pt denies change in vision and change in mentation Assessment and Plan Assessmemt and Plan Problems Medical Problems: (1) Contusion of right knee Status: Acute (2) Fall Status: Acute (3) Head contusion Status: Acute (4) Right hip pain Status: Acute (5) Self-care deficit Status: Acute Assessment Head contusion s/p fall, pedal edema, UTI, potential CHF Plan - continue diuretics - consult podiatry - trend labs - PT/OT - await further information from patient case manager - appreciate input from subspecialists - wound care Comment Review of Relevant I have reviewed the following items marlene (where applicable) has been applied. Medications: Current Medications Medications (Trade) Dose Ordered Sig/Placido Route PRN Reason Start Time Stop Time Status Last Admin Dose Admin Diphtheria/ Tetanus/Acell Pertussis (ADACEL TDap SYRINGE) 0.5 ml ONCE ONCE VAX IM 06/30/20 14:30 06/30/20 14:31 DC 06/30/20 14:34 Ceftriaxone Sodium (Rocephin) 1 gm Q24H IVP 06/30/20 18:30 06/30/20 22:12 Furosemide (Lasix) 40 mg DAILY IVP 06/30/20 19:00 07/01/20 08:33 Amlodipine Besylate (Norvasc) 5 mg DAILY PO 07/01/20 09:00 07/01/20 08:33 Aspirin (Ecotrin) 81 mg DAILY PO 07/01/20 09:00 07/01/20 08:32 Atorvastatin Calcium (Lipitor) 20 mg QHS PO 06/30/20 22:00 06/30/20 22:12 Latanoprost (Xalatan) 1 drop QHS OU 06/30/20 22:00 06/30/20 22:12 Brimonidine Tartrate (Alphagan) 1 drop BID OU 06/30/20 22:00 07/01/20 08:36 Timolol Maleate (Timoptic 0.5% Ophth) 1 drop BID OU 06/30/20 22:00 07/01/20 08:36 Influenza Virus Vaccine Quadrival (Fluzone Quad Syringe) 0.5 ml ONCE ONCE VAX IM 07/01/20 09:00 07/01/20 09:01 DC 07/01/20 08:38 Justifications for Admission Other Justification TEE ORTIZ III DO Jul 01, 2020 11:14
[2020-07-01] MEDS ORDERED: PERFLUTREN PROTEIN-A MICROSPHR 0.22 MG/ML 3 ML VIAL. IV ONE ×2 (12:29→13:00)
--- NOTE | 2020-07-01 12:56 | CARD ---
MR#: [id number] Date of Study: 07/01/2020 Ordering Physician: OLGA AGUIRRE, Referring Physician: OLGA AGUIRRE, Tech: Caridad Holt [facility] APPROVED REPORT EXAM: Two-dimensional and M-mode echocardiogram with Doppler and color Doppler. Other Information Quality : Technically LimitedHR: 79bpm Rhythm : NSR INDICATION CAD Echo Enhancing Agent Indication: Endocardial border delineation Agent/Amount Used: Optison 3mL 2D DIMENSIONS Left Atrium(2D)2.6 (1.6-4.0cm)IVSd1.0 (0.7-1.1cm) Aortic Root(2D)3.0 (2.0-3.7cm)LVDd3.8 (3.9-5.9cm) LVOT Diameter2.3 (1.8-2.4cm)PWd0.9 (0.7-1.1cm) IVSs1.6 (0.8-1.2cm)LVDs2.4 (2.5-4.0cm) FS (%) 36.5 %PWs1.7 (0.8-1.2cm) SV41.3 ml Aortic Valve AoV Peak Matheus.127.7cm/sAoV VTI23.9cm AO Peak GR.6.5mmHgAO Mean GR.4mmHg Pulmonary Valve PV Peak Mexfwqph638.6cm/sPV Peak Grad.5mmHg LEFT VENTRICLE Technically difficult study. The left ventricle is normal size. There is normal left ventricular wal l thickness. The left ventricular systolic function appears normal and the ejection fraction is withi n normal range. Systolic function is 55 to 60%. There appears to be normal LV segmental wall motion. RIGHT VENTRICLE The right ventricle is mildly dilated. There is normal right ventricular wall thickness. The right ve ntricular systolic function is normal. ATRIA The left atrium size is normal. The right atrium size is normal. AORTIC VALVE The aortic valve is normal in structure and function. Doppler and Color Flow revealed no significant aortic regurgitation. There is no significant aortic valvular stenosis. MITRAL VALVE The mitral valve is normal in structure and function. There is no evidence of mitral valve prolapse. There is no mitral valve stenosis. Doppler and Color-flow revealed trace to mild mitral regurgitation . TRICUSPID VALVE Doppler and Color Flow revealed trace tricuspid regurgitation. GREAT VESSELS The aortic root is normal in size. Not visualized. PERICARDIAL EFFUSION There is no evidence of significant pericardial effusion. Critical Notification Critical Value: No <Conclusion> Technically difficult study. The left ventricle is normal size. The left ventricular systolic function appears normal and the ejection fraction is within normal rang e. Systolic function is 55 to 60%. Doppler and Color Flow revealed no significant aortic regurgitation. There is no significant aortic valvular stenosis. Doppler and Color-flow revealed trace to mild mitral regurgitation. Doppler and Color Flow revealed trace tricuspid regurgitation. Signed by : Federico Menard MD Electronically Approved : 07/01/2020 12:56:21
--- NOTE | 2020-07-01 14:39 | PDOC2 ---
OLGA AGUIRRE CORROSION CONTROL SPECIALIST 07/01/20 1439: CARDIAC CONSULT DATE OF CONSULT Date of Consult DATE: 07/01/20 TIME: 14:01 REASON FOR CONSULT Reason for Consult: Probable CHF REFERRING PHYSICIAN Referring Physician: Lance SOURCE Source: Chart review, Patient HISTORY OF PRESENT ILLNESS HISTORY OF PRESENT ILLNESS This is a pleasant 69 yo male admitted for complains fall. Reports that he tripped and fell. No passing out or dizziness. His legs have been swelling for quite sometime. No SOA, chest pain. Denies any palpitations no nausea vomiting. He has been weak and some pain on legs sometimes. He has some minute wounds on his feet and eschars. He could not really tell me how he sustained these lesions. He is basically sedentary and lives with his brother and his home situation has been lacking utilities and unable to care for self noted with dirty clothes. EMS report patient lives in a house with no running water and electricity. He has not been seen in our office since 2019 and has not seen PCP close to a yr. Denies any orthopnea, PND. He still has medications at home verbalized compliance. PAST MEDICAL HISTORY Past Medical History Cardiovascular: CAD, CHF, HTN, Hyperlipidemia, Other (Mixed ischemic and non- ischemic cardiomyopathy ; Mild ascending aortic aneurysm measuring 4.5 cm in transverse dimension via CT chest 2016; chronic leg edema; chronic LBBB), PAFIB Pulmonary: No pertinent hx GI: GERD Heme/Onc: Anemia NOS Hepatobiliary: No pertinent hx Psych: No pertinent hx Musculoskeletal: Osteoarthritis Rheumatologic: No pertinent hx Infectious disease: No pertinent hx ENT: Other (glaucoma) Renal/: Chronic renal insuff (CKD3), Benign prostatic enlarg. Endocrine: No pertinent hx PAST SURGICAL HISTORY Past Surgical History LHC; Prostate laser surgery FAMILY HISTORY Family History: Heart Disease SOCIAL HISTORY Smoke: No ALCOHOL: none Drugs: None Lives: with Family (brother) CURRENT MEDICATIONS CURRENT MEDICATIONS Current Medications Medications (Trade) Dose Ordered Sig/Placido Route PRN Reason Start Time Stop Time Status Last Admin Dose Admin Diphtheria/ Tetanus/Acell Pertussis (ADACEL TDap SYRINGE) 0.5 ml ONCE ONCE VAX IM 06/30/20 14:30 06/30/20 14:31 DC 06/30/20 14:34 Ceftriaxone Sodium (Rocephin) 1 gm Q24H IVP 06/30/20 18:30 06/30/20 22:12 Furosemide (Lasix) 40 mg DAILY IVP 06/30/20 19:00 07/01/20 08:33 Amlodipine Besylate (Norvasc) 5 mg DAILY PO 07/01/20 09:00 07/01/20 08:33 Aspirin (Ecotrin) 81 mg DAILY PO 07/01/20 09:00 07/01/20 08:32 Atorvastatin Calcium (Lipitor) 20 mg QHS PO 06/30/20 22:00 06/30/20 22:12 Latanoprost (Xalatan) 1 drop QHS OU 06/30/20 22:00 06/30/20 22:12 Brimonidine Tartrate (Alphagan) 1 drop BID OU 06/30/20 22:00 07/01/20 08:36 Timolol Maleate (Timoptic 0.5% Ophth) 1 drop BID OU 06/30/20 22:00 07/01/20 08:36 Influenza Virus Vaccine Quadrival (Fluzone Quad [id number] Syringe) 0.5 ml ONCE ONCE VAX IM 07/01/20 09:00 07/01/20 09:01 DC 07/01/20 08:38 ALLERGIES ALLERGIES: Coded Allergies: No Known Drug Allergies (Unverified , 08/07/16) ROS Review of System 14 point ROS evaluated with pertinent positives noted per HPI PHYSICAL EXAM General: Alert, Oriented X3, Cooperative, No acute distress HEENT: Atraumatic, Mucous membr. moist/pink Lungs: Clear to auscultation, Normal air movement Heart: Regular rate (no tele), Other (2/6 systolic murmur to LLS border) Abdomen: Soft Extremities: No cyanosis, Other (2-3+ bilateral LE pitting edema) Skin: Other (toe lesions with eschar looking skin lesion to toes, onychomycoses; contusion to occiput) Neuro: Normal speech, Sensation intact Psych/Mental Status: Mental status NL, Other (flat affect) MUSCULOSKELETAL: Osteoarthritic changes both hands VITALS/I&O VITALS/I&O: Vital Signs Date Time Temp Pulse Resp B/P (MAP) Pulse Ox O2 Delivery O2 Flow Rate FiO2 07/01/20 11:00 98.8 66 16 92/60 (71) 94 Room Air 98.8 I & O 06/30/20 06/30/20 07/01/20 15:00 23:00 07:00 Intake Total 350 ml Output Total 3100 ml Balance -2750 ml LABS Lab: Laboratory Tests Test 06/30/20 14:58 06/30/20 16:48 07/01/20 10:01 07/01/20 10:15 White Blood Count 6.8 x10^3/uL (4.0-11.0) Red Blood Count 5.00 x10^6/uL (4.30-5.70) Hemoglobin 15.2 g/dL (13.0-17.5) Hematocrit 44.5 % (39.0-53.0) Mean Corpuscular Volume 89 fL (79-100) Mean Corpuscular Hemoglobin 31 pg (25-35) Mean Corpuscular Hemoglobin Concent 34 g/dL (31-37) Red Cell Distribution Width 14.5 % (11.5-14.5) Platelet Count 236 x10^3/uL (140-400) Neutrophils (%) (Auto) 79 % (31-73) H Lymphocytes (%) (Auto) 10 % (24-48) L Monocytes (%) (Auto) 8 % (0-9) Eosinophils (%) (Auto) 2 % (0-3) Basophils (%) (Auto) 1 % (0-3) Neutrophils # (Auto) 5.3 x10^3/uL (1.8-7.7) Lymphocytes # (Auto) 0.7 x10^3/uL (1.0-4.8) L Monocytes # (Auto) 0.6 x10^3/uL (0.0-1.1) Eosinophils # (Auto) 0.1 x10^3/uL (0.0-0.7) Basophils # (Auto) 0.1 x10^3/uL (0.0-0.2) Sodium Level 142 mmol/L (136-145) Potassium Level 3.9 mmol/L (3.5-5.1) Chloride Level 104 mmol/L (98-107) Carbon Dioxide Level 28 mmol/L (21-32) Anion Gap 10 (6-14) Blood Urea Nitrogen 15 mg/dL (8-26) Creatinine 1.3 mg/dL (0.7-1.3) Estimated GFR (Cockcroft-Gault) 54.4 BUN/Creatinine Ratio 12 (6-20) Glucose Level 122 mg/dL (70-99) H Calcium Level 9.4 mg/dL (8.5-10.1) Total Bilirubin 0.7 mg/dL (0.2-1.0) Aspartate Amino Transferase (AST) 18 U/L (15-37) Alanine Aminotransferase (ALT) 30 U/L (16-63) Alkaline Phosphatase 105 U/L (46-116) Troponin I Quantitative < 0.017 ng/mL (0.000-0.055) AP-Bjd-O-Type Natriuretic Peptide 358 pg/mL (0-124) H Total Protein 7.8 g/dL (6.4-8.2) Albumin 3.4 g/dL (3.4-5.0) Albumin/Globulin Ratio 0.8 (1.0-1.7) L Urine Collection Type Void Urine Color Yellow Urine Clarity Clear Urine pH 6.5 (<5.0-8.0) Urine Specific [place] 1.015 (1.000-1.030) Urine Protein Negative mg/dL (NEG-TRACE) Urine Glucose (UA) Negative mg/dL (NEG) Urine Ketones (Stick) Negative mg/dL (NEG) Urine Blood Negative (NEG) Urine Nitrite Negative (NEG) Urine Bilirubin Negative (NEG) Urine Urobilinogen Dipstick 1.0 mg/dL (0.2 mg/dL) Urine Leukocyte Esterase Large (NEG) Urine RBC 0 /HPF (0-2) Urine WBC Tntc /HPF (0-4) Urine Squamous Epithelial Cells Occ /LPF Urine Amorphous Sediment Present /HPF Urine Bacteria Few /HPF (0-FEW) Urine Mucus Slight /LPF Thyroid Stimulating Hormone (TSH) 4.782 uIU/mL (0.358-3.74) H SARS-CoV-2 Antigen (Rapid) Negative (NEGATIVE) Laboratory Tests 06/30/20 14:58 Laboratory Tests 06/30/20 14:58 ECHOCARDIOGRAM ECHOCARDIOGRAM <Conclusion> Technically difficult study. The left ventricle is normal size. Left ventricle function apperas normal. The apex was not clearly imaged. The Ejection Fraction is 50-55%. There is no significant aortic valvular stenosis. Doppler and Color Flow revealed no significant aortic regurgitation. Doppler and Color Flow revealed trace mitral valve regurgitation. Doppler and Color Flow revealed trace tricuspid regurgitation. The PA pressure was estimated at 26 mmHg. The ascending aorta is mildly dilated at 4.1cm. DATE: 07/08/18 1256 HEART CATH HEART CATH LEFT VENTRICULOGRAM: EF 50% Mild global hypokinesis. No significant aortic regurgitation. Aortography: Mild to moderate dilation of the ascending aorta at 4.0cm. CORONARY ANGIOGRAPHY: LM is a large caliber vessel with a distal 20% stenosis. LAD is a large caliber vessel with mild luminal irregularities and it wraps around the apex. Ramus is a moderate caliber vessel with normal angiographic appearance. LCx is a moderate caliber non-dominant vessel with normal angiographic appearance. OM1 is a moderate caliber vessel with normal angiographic appearance. RCA is a small to moderate caliber co-dominant vessel with a proximal to mid 50% stenosis. Conclusion 1. One vessel coronary artery disease. No acute lesions noted. 2. Severe sinus bradycardia with intermittent high grade AV block. 3. Mild to moderate ascending aortic dilation. Recommendations Aggressive medical therapy. Plan for pacemaker in a.m. DATE: 01/24/18 1421 ASSESSMENT/PLAN ASSESSMENT/PLAN 1. Nontraumatic fall: tripped. Not associated to syncope or arrhythmia 2. Leg edema/wounds: possible venous insufficiency and PAD 3. Chronic diastolic CHF: clinically compensated 4. SSS with PPM in situ: viseto. Interrogation revealed normal device function, no significant arrhythmias 95% V pacing. No AFIB. 90% battery life 5. PAFIB: maintaining SR 6. Subclinical hypothyroidism 7. Poor compliance with appointment 8. Poor self care 9. CAD: no past PCIs. clinically stable. Recommendations 1. TTE and check TSH. Obtain LE arterial duplex 2. Stop norvasc and continue metoprolol. Continue statin. 3. Lasix PRN 4. Continue ASA for stroke prevention. Currently poor candidate for senior care anticoagulation. AFIB burden is low. 5. Covid pending for nsg home placement MATY DIAZ MD 07/02/20 1437: CARDIAC CONSULT ASSESSMENT/PLAN ASSESSMENT/PLAN Late entry for 07/01/20 Patient seen and examined. Agree with above nurse practitioner note. Lower extremity arterial Doppler is grossly unremarkable. TTE is also grossly unremarkable. Supportive care. OLGA AGUIRRE APRN Jul 01, 2020 14:39 MATY DIAZ MD Jul 02, 2020 14:37
[2020-07-01 15:00] VITALS: BP 143/71
[2020-07-01] MEDS: cefTRIAXone IV Push 1 GM VIAL. IVP SCH (16:47)
--- NOTE | 2020-07-01 17:36 | NUR ---
Wound Care Wound Type/Assessment: Consult to eval and treat for multiple skin abnormalities. Pt has lymphedema and per report is not taking care of self very well. Black scaly buildup covering toes on both feet, eschar-like in appearance, but able to be removed after scrubbing legs and feet with soap and water. L foot is red and swollen, but no openings noted. R dorsal foot has a long, narrow abrasion from a fall sustained at home; Red shiny wound bed, purple edges, skin dry and scaly. No wounds noted to buttock, only purplish, blanchable skin from previous skin breakdown. L anterior lower leg has a dry, stable, intact scab. Posterior head is pink and purple bruised from fall at home. All wound assessments discontinued with the exception of the right dorsal foot, which is the only open area noted on head to toe assessment. Pt reports that he did not know his feet looked that way until his socks were removed when he got to the hospital. When asked how long he has been wearing the pair of socks he stated, "several months." Treatment Recommendations/Plan: Apply ammonium lactate to BLE, feet, and toes BID. Apply G medigrips Education provided: Educated to turn often to prevent skin breakdown. Offloading surface/device: Pt is able to make adjustments in position without assistance. Encouraged to put legs up on pillows to float heels. Recommended Referrals/Tests: Online Media Director for toenails. Discharge Recommendations for dressings: As above. F/U on 07/08/20
[2020-07-01 19:35] VITALS: BP 116/51
[2020-07-01] MEDS: LATANOPROST 0.005% OPHTH SOLUTION 2.5ML BOTTLE. OU SCH (20:41)
[2020-07-01] MEDS: ATORVASTATIN CALCIUM 20 MG TABLET PO SCH (20:41)
[2020-07-01 23:26] VITALS: BP 120/61
[2020-07-02 03:12] VITALS: BP 118/64
[2020-07-02 07:00] VITALS: BP 143/58
--- NOTE | 2020-07-02 08:36 | PDOC ---
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 History of Present Illness History of Present Illness 07/02/2020 - pt seen and assessed at bedside - discussed pt living condition with pt - discussed w/ RN - reviewed chart - reviewed pt edema and skin - discussed with hospice case manager, LIVING IN UNSAFE CONDITIONS, NO UTILITIES, NO HEAT Vitals Vitals Vital Signs Date Time Temp Pulse Resp B/P (MAP) Pulse Ox O2 Delivery O2 Flow Rate FiO2 07/02/20 07:00 98.4 80 20 143/58 (86) 94 Room Air 98.4 Physical Exam General: Alert, Oriented X3, Cooperative, No acute distress Heart: Regular rate (no tele), Other (2/6 systolic murmur to LLS border) Lungs: Clear Abdomen: Soft Extremities: No cyanosis, Other (2-3+ bilateral LE pitting edema) Skin: Other (toe lesions with eschar looking skin lesion to toes, onychomycoses; contusion to occiput) Labs LABS RIGHT VENTRICLE The right ventricle is mildly dilated. There is normal right ventricular wall thickness. The right ventricular systolic function is normal. ATRIA The left atrium size is normal. The right atrium size is normal. AORTIC VALVE The aortic valve is normal in structure and function. Doppler and Color Flow revealed no significant aortic regurgitation. There is no significant aortic valvular stenosis. MITRAL VALVE The mitral valve is normal in structure and function. There is no evidence of mitral valve prolapse. There is no mitral valve stenosis. Doppler and Color-flow revealed trace to mild mitral regurgitation. TRICUSPID VALVE Doppler and Color Flow revealed trace tricuspid regurgitation. GREAT VESSELS The aortic root is normal in size. Not visualized. PERICARDIAL EFFUSION There is no evidence of significant pericardial effusion. Critical Notification Critical Value: No <Conclusion> Technically difficult study. The left ventricle is normal size. The left ventricular systolic function appears normal and the ejection fraction is within normal range. Systolic function is 55 to 60%. Doppler and Color Flow revealed no significant aortic regurgitation. There is no significant aortic valvular stenosis. Doppler and Color-flow revealed trace to mild mitral regurgitation. Doppler and Color Flow revealed trace tricuspid regurgitation. Signed by : Kristel Menard MD Electronically Approved : 07/01/2020 12:56:21 DICTATED and SIGNED BY: KRISTEL MENARD MD DATE: 07/01/20 [id number] Exam: CT thoracic spine without contrast CT lumbar spine without contrast CLINICAL HISTORY: Reason: fall pain / Spl. Instructions: / History: COMPARISON: None available. TECHNIQUE: This CT study consists of contiguous axial images performed through the thoracic and lumbar spine. Sagittal and coronal reformatted images were also performed. PQRS compliance statement - One or more of the following individualized dose reduction techniques were utilized for this study: 1. Automated exposure control 2. Adjustment of the mA and/or kV according to patient size 3. Use of iterative reconstruction technique FINDINGS: Thoracic spine: Vertebral body heights are preserved. Rightward curvature of the thoracic spine apex T7. Mild disc height loss centered at the mid thoracic spine. Linear and bandlike opacities in the left lower lobe likely scarring/atelectasis. Gallbladder wall calcification or adherent calcified gallstones. Lumbar spine: 5 nonrib-bearing lumbar-type vertebral bodies. Vertebral body heights are preserved. Mild L4-5 and L5-S1 disc height loss. Bulky anterior endplate osteophytes are seen at multiple levels. No spondylolisthesis. Mild multilevel facet degenerative changes are seen. Moderate fatty atrophy of the left iliopsoas. Vascular calcifications are seen. Multiple nonobstructing right renal calculi. Colonic diverticulosis. IMPRESSION: 1. Multilevel degenerative changes of the thoracic and lumbar spine 2. Negative acute fracture or subluxation of the thoracic or lumbar spine. Electronically signed by: Elpidio Aguilar MD (06/30/2020 4:11 PM) [facility] DICTATED and SIGNED BY: ELPIDIO AGUILAR MD DATE: 06/30/20 [id number] PATIENT: JOSE MERCADO ACCOUNT: [id number] : 1950 LOCATION: ER AGE: 69 SEX: M EXAM STATUS: REG ER ORD. PHYSICIAN: JAZZMINE BHATT APRN REASON: fall pain PROCEDURE: CT THORACIC SPINE WO CONTRAST Exam: CT thoracic spine without contrast CT lumbar spine without contrast CLINICAL HISTORY: Reason: fall pain / Spl. Instructions: / History: COMPARISON: None available. TECHNIQUE: This CT study consists of contiguous axial images performed through the thoracic and lumbar spine. Sagittal and coronal reformatted images were also performed. PQRS compliance statement - One or more of the following individualized dose reduction techniques were utilized for this study: 1. Automated exposure control 2. Adjustment of the mA and/or kV according to patient size 3. Use of iterative reconstruction technique FINDINGS: Thoracic spine: Vertebral body heights are preserved. Rightward curvature of the thoracic spine apex T7. Mild disc height loss centered at the mid thoracic spine. Linear and bandlike opacities in the left lower lobe likely scarring/atelectasis. Gallbladder wall calcification or adherent calcified gallstones. Lumbar spine: 5 nonrib-bearing lumbar-type vertebral bodies. Vertebral body heights are preserved. Mild L4-5 and L5-S1 disc height loss. Bulky anterior endplate osteophytes are seen at multiple levels. No spondylolisthesis. Mild multilevel facet degenerative changes are seen. Moderate fatty atrophy of the left iliopsoas. Vascular calcifications are seen. Multiple nonobstructing right renal calculi. Colonic diverticulosis. IMPRESSION: 1. Multilevel degenerative changes of the thoracic and lumbar spine 2. Negative acute fracture or subluxation of the thoracic or lumbar spine. Electronically signed by: Elpidio Aguilar MD (06/30/2020 4:11 PM) [facility] DICTATED and SIGNED BY: ELPIDIO AGUILAR MD DATE: 06/30/20 [id number] PATIENT: JOSE MERCADO ACCOUNT: [id number] : 1950 LOCATION: ER AGE: 69 SEX: M EXAM STATUS: REG ER ORD. PHYSICIAN: JAZZMINE BHATT APRN REASON: fall pain RT KNEE PROCEDURE: KNEE RIGHT 3V XR KNEE 3 VIEWS_RT History: Reason: fall pain RT KNEE / Spl. Instructions: / History: Technique: 3 views right knee. Comparison: None. Findings: Normal alignment. No fracture. Anterior knee soft tissue swelling. No knee joint effusion. Underneath degenerative changes most prominent within the lateral and patellofemoral compartments. Impression: 1. No acute osseous abnormality. 2. Anterior knee soft tissue swelling. 3. Moderate knee DJD. Electronically signed by: Que Gomes DO (06/30/2020 3:18 PM) [id number] DICTATED and SIGNED BY: QUE GOMES DO DATE: 06/30/20 [id number] Laboratory Tests Test 07/01/20 10:01 07/01/20 10:15 Thyroid Stimulating Hormone (TSH) 4.782 uIU/mL (0.358-3.74) Coronavirus (PCR) Not detected (Not Detected) SARS-CoV-2 Antigen (Rapid) Negative (NEGATIVE) Assessment and Plan Assessmemt and Plan Problems Medical Problems: (1) Contusion of right knee Status: Acute (2) Fall Status: Acute (3) Head contusion Status: Acute (4) Right hip pain Status: Acute (5) Self-care deficit Status: Acute Comment Review of Relevant I have reviewed the following items marlene (where applicable) has been applied. Labs Laboratory Tests Test 06/30/20 14:58 06/30/20 16:48 07/01/20 10:01 07/01/20 10:15 White Blood Count 6.8 x10^3/uL (4.0-11.0) Red Blood Count 5.00 x10^6/uL (4.30-5.70) Hemoglobin 15.2 g/dL (13.0-17.5) Hematocrit 44.5 % (39.0-53.0) Mean Corpuscular Volume 89 fL (79-100) Mean Corpuscular Hemoglobin 31 pg (25-35) Mean Corpuscular Hemoglobin Concent 34 g/dL (31-37) Red Cell Distribution Width 14.5 % (11.5-14.5) Platelet Count 236 x10^3/uL (140-400) Neutrophils (%) (Auto) 79 % (31-73) Lymphocytes (%) (Auto) 10 % (24-48) Monocytes (%) (Auto) 8 % (0-9) Eosinophils (%) (Auto) 2 % (0-3) Basophils (%) (Auto) 1 % (0-3) Neutrophils # (Auto) 5.3 x10^3/uL (1.8-7.7) Lymphocytes # (Auto) 0.7 x10^3/uL (1.0-4.8) Monocytes # (Auto) 0.6 x10^3/uL (0.0-1.1) Eosinophils # (Auto) 0.1 x10^3/uL (0.0-0.7) Basophils # (Auto) 0.1 x10^3/uL (0.0-0.2) Sodium Level 142 mmol/L (136-145) Potassium Level 3.9 mmol/L (3.5-5.1) Chloride Level 104 mmol/L (98-107) Carbon Dioxide Level 28 mmol/L (21-32) Anion Gap 10 (6-14) Blood Urea Nitrogen 15 mg/dL (8-26) Creatinine 1.3 mg/dL (0.7-1.3) Estimated GFR (Cockcroft-Gault) 54.4 BUN/Creatinine Ratio 12 (6-20) Glucose Level 122 mg/dL (70-99) Calcium Level 9.4 mg/dL (8.5-10.1) Total Bilirubin 0.7 mg/dL (0.2-1.0) Aspartate Amino Transf (AST/SGOT) 18 U/L (15-37) Alanine Aminotransferase (ALT/SGPT) 30 U/L (16-63) Alkaline Phosphatase 105 U/L (46-116) Troponin I Quantitative < 0.017 ng/mL (0.000-0.055) AA-Nzf-Z-Type Natriuretic Peptide 358 pg/mL (0-124) Total Protein 7.8 g/dL (6.4-8.2) Albumin 3.4 g/dL (3.4-5.0) Albumin/Globulin Ratio 0.8 (1.0-1.7) Urine Collection Type Void Urine Color Yellow Urine Clarity Clear Urine pH 6.5 (<5.0-8.0) Urine Specific Everetts 1.015 (1.000-1.030) Urine Protein Negative mg/dL (NEG-TRACE) Urine Glucose (UA) Negative mg/dL (NEG) Urine Ketones (Stick) Negative mg/dL (NEG) Urine Blood Negative (NEG) Urine Nitrite Negative (NEG) Urine Bilirubin Negative (NEG) Urine Urobilinogen Dipstick 1.0 mg/dL (0.2 mg/dL) Urine Leukocyte Esterase Large (NEG) Urine RBC 0 /HPF (0-2) Urine WBC Tntc /HPF (0-4) Urine Squamous Epithelial Cells Occ /LPF Urine Amorphous Sediment Present /HPF Urine Bacteria Few /HPF (0-FEW) Urine Mucus Slight /LPF Thyroid Stimulating Hormone (TSH) 4.782 uIU/mL (0.358-3.74) Coronavirus (PCR) Not detected (Not Detected) SARS-CoV-2 Antigen (Rapid) Negative (NEGATIVE) Laboratory Tests Test 07/01/20 10:01 07/01/20 10:15 Thyroid Stimulating Hormone (TSH) 4.782 uIU/mL (0.358-3.74) Coronavirus (PCR) Not detected (Not Detected) SARS-CoV-2 Antigen (Rapid) Negative (NEGATIVE) Medications Current Medications Diphtheria/ Tetanus/Acell Pertussis (ADACEL TDap SYRINGE) 0.5 ml ONCE ONCE VAX IM Last administered on 06/30/20at 14:34; Start 06/30/20 at 14:30; Stop 06/30/20 at 14:31; Status DC Diphtheria/ Tetanus/Acell Pertussis (ADACEL TDap SYRINGE) 0.5 ml STK-MED ONCE VAX IM ; Start 06/30/20 at 14:30; Stop 06/30/20 at 14:31; Status DC Ondansetron HCl (Zofran) 4 mg PRN Q8HRS PRN IV NAUSEA/VOMITING; Start 06/30/20 at 17:30; Stop 07/01/20 at 17:29; Status DC Acetaminophen (Tylenol) 650 mg PRN Q4HRS PRN PO FEVER > 100.3'F; Start 06/30/20 at 17:30; Stop 07/01/20 at 17:29; Status DC Ceftriaxone Sodium (Rocephin) 1 gm Q24H IVP Last administered on 07/01/20at 16:47; Start 06/30/20 at 18:30 Furosemide (Lasix) 40 mg DAILY IVP Last administered on 07/01/20at 08:33; Start 06/30/20 at 19:00 Amlodipine Besylate (Norvasc) 5 mg DAILY PO Last administered on 07/01/20at 08:33; Start 07/01/20 at 09:00; Stop 07/01/20 at 14:31; Status DC Aspirin (Ecotrin) 81 mg DAILY PO Last administered on 07/01/20at 08:32; Start 07/01/20 at 09:00 Atorvastatin Calcium (Lipitor) 20 mg QHS PO Last administered on 07/01/20at 20:41; Start 06/30/20 at 22:00 Latanoprost (Xalatan) 1 drop QHS OU Last administered on 07/01/20at 20:41; St art 06/30/20 at 22:00 Brimonidine Tartrate (Alphagan) 1 drop BID OU Last administered on 07/01/20at 20:41; Start 06/30/20 at 22:00 Timolol Maleate (Timoptic 0.5% Ophth) 1 drop BID OU Last administered on 07/01/20at 20:41; Start 06/30/20 at 22:00 Influenza Virus Vaccine Quadrival (Fluzone Quad Syringe) 0.5 ml ONCE ONCE VAX IM Last administered on 07/01/20at 08:38; Start 07/01/20 at 09:00; Stop 07/01/20 at 09:01; Status DC Perflutren Protein Type A Microsphe (Optison) 0.66 mg STK-MED ONCE IV ; Start 07/01/20 at 12:29; Stop 07/01/20 at 12:29; Status DC Multivitamins (Thera M Plus) 1 tab DAILY PO ; Start 07/02/20 at 09:00 Metoprolol Tartrate (Lopressor) 25 mg BID PO ; Start 07/02/20 at 09:00 Lactic Acid (Lac-Hydrin) 1 phyllis BID TP ; Start 07/02/20 at 09:00 Perflutren Protein Type A Microsphe (Optison) 0.66 mg STK-MED ONCE IV ; Start 07/01/20 at 13:00; Stop 07/02/20 at 08:31; Status DC Active Scripts Active Amlodipine Besylate 5 Mg Tablet 5 Mg PO DAILY 30 Days Atorvastatin Calcium 20 Mg Tablet 20 Mg PO QHS Reported Aspirin Ec (Aspirin) 81 Mg Tablet. 1 Tab PO DAILY Combigan Eye Drops (Brimonidine Tartrate/Timolol) 5 Ml Drops 5 Ml OP BID Latanoprost 2.5 Ml Drops 1 Drop EACHEYE QHS Vitals/I & O Vital Sign - Last 24 Hours 07/01/20 07/01/20 07/01/20 07/01/20 11:00 15:00 19:35 20:00 Temp 98.8 97.6 98.9 98.8 97.6 98.9 Pulse 66 76 74 Resp 16 16 20 B/P (MAP) 92/60 (71) 143/71 (95) 116/51 (72) Pulse Ox 94 97 94 O2 Delivery Room Air Room Air Room Air Room Air 07/01/20 07/02/20 07/02/20 23:26 03:12 07:00 Temp 98.9 98.7 98.4 98.9 98.7 98.4 Pulse 66 70 80 Resp 20 20 20 B/P (MAP) 120/61 (80) 118/64 (82) 143/58 (86) Pulse Ox 96 95 94 O2 Delivery Room Air Room Air Room Air Intake and Output 07/01/20 07/01/20 07/02/20 15:00 23:00 07:00 Intake Total 120 ml 480 ml 880 ml Output Total 1075 ml Balance 120 ml 480 ml -195 ml Justicifation of Admission Dx: Justifications for Admission: Justification of Admission Dx: No SALVADOR ORTEGA MD Jul 02, 2020 08:36
[2020-07-02] MEDS: ASPIRIN ENTERIC COATED 81 MG TABLET.DR. PO SCH (09:44)
[2020-07-02] MEDS: METOPROLOL TART IMMED RELEASE 25 MG TABLET. PO SCH ×2 (09:44→20:45)
[2020-07-02] MEDS: MULTIVITAMIN with MINERAL TABLET. PO SCH (09:44)
[2020-07-02] MEDS: BRIMONIDINE 0.2% OPHTH SOLUTION 5ML BOTTLE. OU SCH ×2 (09:45→20:46)
[2020-07-02] MEDS: TIMOLOL 0.5% OPHTH SOLUTION 5ML BOTTLE. OU SCH ×2 (09:45→20:46)
[2020-07-02] MEDS: AMMONIUM LACTATE 12% TOPICAL LOTION 225GM BOTTLE. TP SCH ×2 (09:46→20:46)
[2020-07-02] MEDS: FUROSEMIDE 40 MG/4 ML VIAL. IVP SCH (09:48)
--- NOTE | 2020-07-02 09:56 | NUR ---
TRISTIAN following. Discussed with RN, pt from home with brother, room air, cardiac diet. Plan is for pt to discharge home when medically ready. Procurement Intern to see pt RE toenails. TRISTIAN will continue to follow. Addendum: 07/02/20 at 1342 by RFANKI LUBIN TRISTIAN discussed pt with Marilee from [facility] [employer]. Pt is not in network with [facility], however Marilee is seeing whether [facility] can provide some [facility] home health for pt. Awaiting confirmation. Addendum: 07/02/20 at 1514 by FRANKI LUBIN [facility] have approved one RN visit and one SW visit. TRISTIAN notified pt, and RN. Home Health discharge orders to be faxed to [facility] (ph: [phone] fax: [phone]). Pt added to weekend discharge list.
[2020-07-02 10:48] VITALS: BP 115/68
--- NOTE | 2020-07-02 13:52 | PDOC ---
CARDIO Progress Notes Date and Time Date of Service 07/02/2020 Time of Evaluation 1330 Subjective Subjective: No Chest Pain, No shortness of breath, No Palpitations Vitals Vitals Vital Signs Date Time Temp Pulse Resp B/P (MAP) Pulse Ox O2 Delivery O2 Flow Rate FiO2 07/02/20 10:48 98.4 68 18 115/68 (84) 96 Room Air 98.4 Weight Weight [ ] Input and Output Intake and Output Intake and Output 07/02/20 07:00 Intake Total 1480 ml Output Total 1075 ml Balance 405 ml Intake Oral 1480 ml Output Urine Total 1075 ml # Voids 2 Microbiology Micro Microbiology 06/30/20 Urine Culture - Preliminary, Resulted Physical Exam HEENT: Neck Supple W Full Motion Chest: Symmetric LUNGS: Clear to Auscultation Heart: S1S2, RRR (no tele) Abdomen: Soft N/T Extremities: Other (2-3+ bilateral LE pitting edema) Neurology: alert, oriented, follow commands Assessment Assessment 1. Nontraumatic fall: tripped. Not associated to syncope or arrhythmia 2. Leg edema/wounds: possible venous insufficiency. leg wraps now in place per PCP 3. Chronic diastolic CHF: clinically compensated EF and WM nml 4. SSS with PPM in situ: [employer]. Interrogation revealed normal device functio n, no significant arrhythmias 95% V pacing. No AFIB. 90% battery life 5. PAFIB: maintaining SR 6. Subclinical hypothyroidism 7. Poor compliance with appointment 8. Poor self care 9. CAD: no past PCIs. clinically stable. 10 Mild LE PAD Recommendations 1. Poor living situation with limited utilities, social service following. Pt wants to go home and lives with brother. Appointment to set but no tel communication available. Home health is being set up as pt does not [facility] to [facility] and will follow up with prior to his follow up 2. Continue metoprolol. Continue statin. 3. Lasix PRN 4. Continue ASA for stroke prevention. Currently poor candidate for residential anticoagulation. AFIB burden is low. Justicifation of Admission Dx: Justifications for Admission: Justification of Admission Dx: OLGA Franklin APRN Jul 02, 2020 13:52
[2020-07-02 14:41] VITALS: BP 111/61
[2020-07-02 15:37] LABS: BASO # 0.1 x10^3/uL (0.0-0.2); BASO % 1 % (0-3); EOS # 0.2 x10^3/uL (0.0-0.7); EOS % 3 % (0-3); HEMATOCRIT 40.4 % (39.0-53.0); HEMOGLOBIN 13.8 g/dL (13.0-17.5); LYMPH # 0.9 x10^3/uL (1.0-4.8); LYMPH % 12 % (24-48); MEAN CORPUSCULAR HEMOGLOBIN 31 pg (25-35); MEAN CORPUSCULAR HGB CONC 34 g/dL (31-37); MEAN CORPUSCULAR VOLUME 90 fL (79-100); MONO # 0.7 x10^3/uL (0.0-1.1); MONO % 10 % (0-9); NEUT # 5.4 x10^3/uL (1.8-7.7); NEUT % 74 % (31-73); PLATELET COUNT 208 x10^3/uL (140-400); RED BLOOD COUNT 4.51 x10^6/uL (4.30-5.70); RED CELL DISTRIBUTION WIDTH 14.7 % (11.5-14.5); WHITE BLOOD COUNT 7.3 x10^3/uL (4.0-11.0)
[2020-07-02 15:55] LABS: ALBUMIN 2.8 g/dL (3.4-5.0); ALBUMIN/GLOBULIN RATIO 0.7 (1.0-1.7); CALCIUM 8.4 mg/dL (8.5-10.1); CREATININE 1.7 mg/dL (0.7-1.3); GFR 39.9; POTASSIUM 3.8 mmol/L (3.5-5.1); TOTAL BILIRUBIN 0.7 mg/dL (0.2-1.0); TOTAL PROTEIN 6.6 g/dL (6.4-8.2)
[2020-07-02] MEDS: cefTRIAXone IV Push 1 GM VIAL. IVP SCH (16:30)
[2020-07-02 19:50] VITALS: BP 139/66
[2020-07-02] MEDS: LACTOBACILLUS RHAMNOSUS GG 1 CAPSULE. PO SCH (20:45)
[2020-07-02] MEDS: ATORVASTATIN CALCIUM 20 MG TABLET PO SCH (20:45)
[2020-07-02] MEDS: LATANOPROST 0.005% OPHTH SOLUTION 2.5ML BOTTLE. OU SCH (20:46)
[2020-07-02 23:34] VITALS: BP 116/66
[2020-07-03 03:58] VITALS: BP 128/65
[2020-07-03 07:00] VITALS: BP 139/61
[2020-07-03] MEDS: LACTOBACILLUS RHAMNOSUS GG 1 CAPSULE. PO SCH ×2 (09:11→20:18)
[2020-07-03] MEDS: ASPIRIN ENTERIC COATED 81 MG TABLET.DR. PO SCH (09:11)
[2020-07-03] MEDS: MULTIVITAMIN with MINERAL TABLET. PO SCH (09:11)
[2020-07-03] MEDS: METOPROLOL TART IMMED RELEASE 25 MG TABLET. PO SCH ×2 (09:12→20:18)
[2020-07-03] MEDS: AMMONIUM LACTATE 12% TOPICAL LOTION 225GM BOTTLE. TP SCH ×2 (09:12→20:25)
[2020-07-03] MEDS: FUROSEMIDE 40 MG/4 ML VIAL. IVP SCH (09:12)
[2020-07-03] MEDS: TIMOLOL 0.5% OPHTH SOLUTION 5ML BOTTLE. OU SCH ×2 (09:13→20:18)
[2020-07-03] MEDS: BRIMONIDINE 0.2% OPHTH SOLUTION 5ML BOTTLE. OU SCH ×2 (09:13→20:18)
[2020-07-03 11:00] VITALS: BP 112/59
--- NOTE | 2020-07-03 11:49 | PDOC ---
[employer] PROGRESS NOTE Date of Service DOS: DATE: 07/03/20 TIME: 11:46 Chief Complaint Chief Complaint IMPRESSION Head contusion s/p fall, pedal edema, UTI, potential CHF LYMPHEDEMA HIGH FALL RISK Morbid obesity plan wound care nurse OT ARTERIAL DOPPLER LEGS History of Present Illness History of Present Illness 07/02/2020 - pt seen and assessed at bedside - discussed pt living condition with pt - discussed w/ RN - reviewed chart - reviewed pt edema and skin - discussed with counter caser, LIVING IN UNSAFE CONDITIONS, NO UTILITIES, NO HEAT 07/03/2020 - pt seen and assessed at bedside - discussed pt living condition with pt - discussed w/ RN - reviewed chart - reviewed pt edema and skin and toenails. all are improving - pt still has not spoken with brother with whom he lives, and wants to go home. Vitals/I&O Vitals/I&O: Vital Signs Date Time Temp Pulse Resp B/P (MAP) Pulse Ox O2 Delivery O2 Flow Rate FiO2 07/03/20 09:12 71 139/61 07/03/20 07:50 Room Air 07/03/20 07:00 98.3 20 92 98.3 I & O 07/02/20 07/02/20 07/03/20 15:00 23:00 07:00 Intake Total 240 ml 300 ml 100 ml Output Total 250 ml 1150 ml 200 ml Balance -10 ml -850 ml -100 ml Physical Exam General: Alert, Oriented X3, Cooperative, No acute distress Heart: Regular rate (no tele), Other (2/6 systolic murmur to LLS border) Lungs: Clear Abdomen: Soft Extremities: No cyanosis, Other (2-3+ bilateral LE pitting edema) Skin: Other (toe lesions with eschar looking skin lesion to toes, onychomycoses; contusion to occiput) Labs Labs: Laboratory Tests Test 07/02/20 15:09 White Blood Count 7.3 x10^3/uL (4.0-11.0) Red Blood Count 4.51 x10^6/uL (4.30-5.70) Hemoglobin 13.8 g/dL (13.0-17.5) Hematocrit 40.4 % (39.0-53.0) Mean Corpuscular Volume 90 fL (79-100) Mean Corpuscular Hemoglobin 31 pg (25-35) Mean Corpuscular Hemoglobin Concent 34 g/dL (31-37) Red Cell Distribution Width 14.7 % (11.5-14.5) Platelet Count 208 x10^3/uL (140-400) Neutrophils (%) (Auto) 74 % (31-73) Lymphocytes (%) (Auto) 12 % (24-48) Monocytes (%) (Auto) 10 % (0-9) Eosinophils (%) (Auto) 3 % (0-3) Basophils (%) (Auto) 1 % (0-3) Neutrophils # (Auto) 5.4 x10^3/uL (1.8-7.7) Lymphocytes # (Auto) 0.9 x10^3/uL (1.0-4.8) Monocytes # (Auto) 0.7 x10^3/uL (0.0-1.1) Eosinophils # (Auto) 0.2 x10^3/uL (0.0-0.7) Basophils # (Auto) 0.1 x10^3/uL (0.0-0.2) Sodium Level 143 mmol/L (136-145) Potassium Level 3.8 mmol/L (3.5-5.1) Chloride Level 104 mmol/L (98-107) Carbon Dioxide Level 33 mmol/L (21-32) Anion Gap 6 (6-14) Blood Urea Nitrogen 25 mg/dL (8-26) Creatinine 1.7 mg/dL (0.7-1.3) Estimated GFR (Cockcroft-Gault) 39.9 BUN/Creatinine Ratio 15 (6-20) Glucose Level 83 mg/dL (70-99) Calcium Level 8.4 mg/dL (8.5-10.1) Total Bilirubin 0.7 mg/dL (0.2-1.0) Aspartate Amino Transf (AST/SGOT) 17 U/L (15-37) Alanine Aminotransferase (ALT/SGPT) 20 U/L (16-63) Alkaline Phosphatase 86 U/L (46-116) Total Protein 6.6 g/dL (6.4-8.2) Albumin 2.8 g/dL (3.4-5.0) Albumin/Globulin Ratio 0.7 (1.0-1.7) Free Thyroxine 0.82 ng/dL (0.76-1.46) Review of Systems Review of Systems: pt denies LANDIN or change in vision pt denies abdominal complaints Assessment and Plan Assessmemt and Plan Problems Medical Problems: (1) Contusion of right knee Status: Acute (2) Fall Status: Acute (3) Head contusion Status: Acute (4) Right hip pain Status: Acute (5) Self-care deficit Status: Acute Assessment Head contusion s/p fall, pedal edema, UTI, potential CHF LYMPHEDEMA HIGH FALL RISK Morbid obesity Plan - continue to diures - trend BUN and Cr - trend labs - monitor legs and feet - discuss LTAC - PT/OT Comment Review of Relevant I have reviewed the following items marlene (where applicable) has been applied. Medications: Current Medications Medications (Trade) Dose Ordered Sig/Placido Route PRN Reason Start Time Stop Time Status Last Admin Dose Admin Lactobacillus Rhamnosus (Culturelle) 1 cap BID PO 07/02/20 21:00 07/03/20 09:11 Justifications for Admission Other Justification TEE ORTIZ III DO Jul 03, 2020 11:49
[2020-07-03 15:00] VITALS: BP 116/51
--- NOTE | 2020-07-03 15:47 | CONS ---
DATE OF CONSULTATION: 07/02/2020 PODIATRIC CONSULTATION REASON FOR CONSULTATION: Evaluate feet regarding long toenails. REVIEW OF RECORD: This is a 69-year-old gentleman that was living in a home without heat with his brother, Ritesh. He essentially fell and someone did call for an ambulance. Suspected heart failure is noted. PAST MEDICAL HISTORY: Glaucoma, coronary artery disease, vascular disease, hard of hearing, blind right eye and prostate issues. ALLERGIES: None. FAMILY HISTORY: Diabetes. SOCIAL HISTORY: Lives at home with brother. MEDICATIONS: Reviewed. PHYSICAL EXAMINATION: DERMAL: The patient has elongated mycotic nails of multiple digits, especially hallux nails. There is dried blood on the left foot and there are some areas on the top of the toes that appear to have some pinpoint bleeding, possibility of this could be verruca or some type of other lesion of unknown specificity at this time. VASCULAR: Pedal pulses are present, but diminished extensive lower extremity and edema of the foot is noted. Capillary filling time is 3-5 seconds to the toes. Coolness to the toes is noted. MUSCULOSKELETAL: No significant bunion or hammertoe deformities at this time that are contributory to his problem. NEUROLOGIC: Weakness is noted. He appears to have normal sensorium. ASSESSMENT: 1. Clinical evidence of diminished vascularity with extensive lower extremity edema. 2. Clinical evidence of onychomycosis, onychocryptosis, onycholysis of chronic severe nature. 3. Left foot has raised lesions with pinpoint hemorrhaging with dried blood that is on the toes. PLAN: 1. Debridement of all mycotic nails performed. No hemorrhage occurred. 2. Debrided all loose skin that has dried blood in it. Discussed with the patient that I am not sure what these areas on top of his left toes are, suspected could be verruca in nature, i.e., wart. Advised him to follow up to do a biopsy would be a consideration in the future. The patient appears to understand the presentation, once he gets maybe stabilized outside and maybe gone through some rehabilitation, that would be a consideration and doing the biopsy along with maintenance care of his feet in the future. KEITH BOWER DPM DR: HUNTER/tara JOB#: [id number] / [id number]
[2020-07-03] MEDS: cefTRIAXone IV Push 1 GM VIAL. IVP SCH (18:08)
[2020-07-03 19:00] VITALS: BP 130/72
[2020-07-03] MEDS: ATORVASTATIN CALCIUM 20 MG TABLET PO SCH (20:18)
[2020-07-03] MEDS: LATANOPROST 0.005% OPHTH SOLUTION 2.5ML BOTTLE. OU SCH (20:18)
[2020-07-03 23:00] VITALS: BP 94/55
[2020-07-04 03:00] VITALS: BP 136/64
[2020-07-04 07:00] VITALS: BP 128/67
[2020-07-04] MEDS: ASPIRIN ENTERIC COATED 81 MG TABLET.DR. PO SCH (09:19)
[2020-07-04] MEDS: LACTOBACILLUS RHAMNOSUS GG 1 CAPSULE. PO SCH ×2 (09:19→21:25)
[2020-07-04] MEDS: MULTIVITAMIN with MINERAL TABLET. PO SCH (09:19)
[2020-07-04] MEDS: METOPROLOL TART IMMED RELEASE 25 MG TABLET. PO SCH ×2 (09:19→21:25)
[2020-07-04 09:20] LABS: ALBUMIN 2.8 g/dL (3.4-5.0); ALBUMIN/GLOBULIN RATIO 0.8 (1.0-1.7); CALCIUM 8.6 mg/dL (8.5-10.1); CREATININE 1.1 mg/dL (0.7-1.3); POTASSIUM 4.1 mmol/L (3.5-5.1); TOTAL BILIRUBIN 0.9 mg/dL (0.2-1.0); TOTAL PROTEIN 6.1 g/dL (6.4-8.2)
[2020-07-04] MEDS: FUROSEMIDE 40 MG/4 ML VIAL. IVP SCH (09:20)
[2020-07-04] MEDS: BRIMONIDINE 0.2% OPHTH SOLUTION 5ML BOTTLE. OU SCH ×2 (09:21→21:33)
[2020-07-04] MEDS: TIMOLOL 0.5% OPHTH SOLUTION 5ML BOTTLE. OU SCH ×2 (09:21→21:33)
[2020-07-04] MEDS: AMMONIUM LACTATE 12% TOPICAL LOTION 225GM BOTTLE. TP SCH ×2 (09:25→21:31)
[2020-07-04 11:00] VITALS: BP 122/60
--- NOTE | 2020-07-04 11:08 | PDOC ---
[employer] PROGRESS NOTE Date of Service DOS: DATE: 07/04/20 TIME: 11:04 Chief Complaint Chief Complaint Head contusion s/p fall, pedal edema, UTI, potential CHF Lymphedema, perhaps an element of early failure to thrive Severe social situation at home (he has no electricity or water) Glaucoma, coronary artery disease, vascular disease, hard of hearing, blind right eye and prostate issues. History of Present Illness History of Present Illness 07/02/2020 - pt seen and assessed at bedside - discussed pt living condition with pt - discussed w/ RN - reviewed chart - reviewed pt edema and skin - discussed with child support case officer, LIVING IN UNSAFE CONDITIONS, NO UTILITIES, NO HEAT 07/03/2020 - pt seen and assessed at bedside - discussed pt living condition with pt - discussed w/ RN - reviewed chart - reviewed pt edema and skin and toenails. all are improving - pt still has not spoken with brother with whom he lives, and wants to go home. 07/04/2020 - pt seen and assessed at bedside - bruising on R knee noted - pt on IV abx - pedal edema and skin improving - pt complained of diarrhea over night - discussed w/ RN - reviewed chart Vitals/I&O Vitals/I&O: Vital Signs Date Time Temp Pulse Resp B/P (MAP) Pulse Ox O2 Delivery O2 Flow Rate FiO2 07/04/20 09:19 73 128/67 07/04/20 07:50 Room Air 07/04/20 07:00 98.7 18 96 98.7 I & O 07/03/20 07/03/20 07/04/20 15:00 23:00 07:00 Intake Total 880 ml Output Total 2050 ml 625 ml Balance -2050 ml 255 ml Physical Exam General: Alert, Oriented X3, Cooperative, No acute distress Heart: Regular rate (no tele), Other (2/6 systolic murmur to LLS border) Lungs: Clear Abdomen: Soft Extremities: No cyanosis, Other (2-3+ bilateral LE pitting edema) Skin: Other (toe lesions with eschar looking skin lesion to toes, onychomycoses; contusion to occiput) Labs Labs: Laboratory Tests Test 07/04/20 08:23 Sodium Level 141 mmol/L (136-145) Potassium Level 4.1 mmol/L (3.5-5.1) Chloride Level 105 mmol/L (98-107) Carbon Dioxide Level 25 mmol/L (21-32) Anion Gap 11 (6-14) Blood Urea Nitrogen 28 mg/dL (8-26) Creatinine 1.1 mg/dL (0.7-1.3) Estimated GFR (Cockcroft-Gault) 66.0 BUN/Creatinine Ratio 25 (6-20) Glucose Level 117 mg/dL (70-99) Calcium Level 8.6 mg/dL (8.5-10.1) Total Bilirubin 0.9 mg/dL (0.2-1.0) Aspartate Amino Transf (AST/SGOT) 31 U/L (15-37) Alanine Aminotransferase (ALT/SGPT) 28 U/L (16-63) Alkaline Phosphatase 81 U/L (46-116) Total Protein 6.1 g/dL (6.4-8.2) Albumin 2.8 g/dL (3.4-5.0) Albumin/Globulin Ratio 0.8 (1.0-1.7) Review of Systems Review of Systems: pt denies abdominal pain and LANDIN Assessment and Plan Assessmemt and Plan Problems Medical Problems: (1) Contusion of right knee Status: Acute (2) Fall Status: Acute (3) Head contusion Status: Acute (4) Right hip pain Status: Acute (5) Self-care deficit Status: Acute Head contusion s/p fall, severe pedal edema, UTI, potential CHF Lymphedema, perhaps an element of early failure to thrive? Severe social situation at home (he has no electricity or water) Glaucoma, coronary artery disease, vascular disease, hard of hearing, blind right eye and prostate issues. Plan - begin immodium prn - continue IV abx - wound care - appreciated subspecialist input - discuss with heel caser about d/c - monitor ins and outs - trend labs - PT/OT vp client services following for possible long-term care placement Comment Review of Relevant I have reviewed the following items marlene (where applicable) has been applied. Justifications for Admission Other Justification TEE ORTIZ III DO Jul 04, 2020 11:08
[2020-07-04] MEDS ORDERED: LOPERAMIDE 2 MG/15 ML ORAL SUSP. PO PRN (11:15)
[2020-07-04 11:55] LABS: BASO % 1 % (0-3); EOS # 0.4 x10^3/uL (0.0-0.7); EOS % 5 % (0-3); HEMATOCRIT 43.1 % (39.0-53.0); HEMOGLOBIN 14.3 g/dL (13.0-17.5); LYMPH # 0.7 x10^3/uL (1.0-4.8); LYMPH % 8 % (24-48); MEAN CORPUSCULAR HEMOGLOBIN 30 pg (25-35); MEAN CORPUSCULAR HGB CONC 33 g/dL (31-37); MEAN CORPUSCULAR VOLUME 90 fL (79-100); MONO # 0.7 x10^3/uL (0.0-1.1); MONO % 9 % (0-9); NEUT % 77 % (31-73); PLATELET COUNT 242 x10^3/uL (140-400); RED BLOOD COUNT 4.78 x10^6/uL (4.30-5.70); RED CELL DISTRIBUTION WIDTH 14.6 % (11.5-14.5); WHITE BLOOD COUNT 7.8 x10^3/uL (4.0-11.0)
[2020-07-04 15:00] VITALS: BP 132/62
[2020-07-04] MEDS: cefTRIAXone IV Push 1 GM VIAL. IVP SCH (17:55)
[2020-07-04 19:00] VITALS: BP 116/48
[2020-07-04] MEDS: ATORVASTATIN CALCIUM 20 MG TABLET PO SCH (21:25)
[2020-07-04] MEDS: LATANOPROST 0.005% OPHTH SOLUTION 2.5ML BOTTLE. OU SCH (21:33)
[2020-07-04 23:00] VITALS: BP 98/55
[2020-07-05 03:00] VITALS: BP 121/64
[2020-07-05 07:00] VITALS: BP 132/62
[2020-07-05 07:44] LABS: BASO # 0.1 x10^3/uL (0.0-0.2); BASO % 1 % (0-3); EOS # 0.4 x10^3/uL (0.0-0.7); EOS % 5 % (0-3); HEMOGLOBIN 13.3 g/dL (13.0-17.5); LYMPH % 14 % (24-48); MEAN CORPUSCULAR HEMOGLOBIN 30 pg (25-35); MEAN CORPUSCULAR HGB CONC 33 g/dL (31-37); MEAN CORPUSCULAR VOLUME 89 fL (79-100); MONO # 0.7 x10^3/uL (0.0-1.1); MONO % 10 % (0-9); NEUT # 5.1 x10^3/uL (1.8-7.7); NEUT % 70 % (31-73); PLATELET COUNT 212 x10^3/uL (140-400); RED BLOOD COUNT 4.48 x10^6/uL (4.30-5.70); RED CELL DISTRIBUTION WIDTH 14.6 % (11.5-14.5); WHITE BLOOD COUNT 7.2 x10^3/uL (4.0-11.0)
[2020-07-05 08:08] LABS: ALBUMIN 2.6 g/dL (3.4-5.0); ALBUMIN/GLOBULIN RATIO 0.7 (1.0-1.7); CALCIUM 8.3 mg/dL (8.5-10.1); CREATININE 1.2 mg/dL (0.7-1.3); GFR 59.7; POTASSIUM 3.8 mmol/L (3.5-5.1); TOTAL BILIRUBIN 0.7 mg/dL (0.2-1.0); TOTAL PROTEIN 6.3 g/dL (6.4-8.2)
[2020-07-05] MEDS: LACTOBACILLUS RHAMNOSUS GG 1 CAPSULE. PO SCH ×2 (08:45→20:57)
[2020-07-05] MEDS: TIMOLOL 0.5% OPHTH SOLUTION 5ML BOTTLE. OU SCH ×2 (08:45→20:56)
[2020-07-05] MEDS: METOPROLOL TART IMMED RELEASE 25 MG TABLET. PO SCH ×2 (08:45→20:56)
[2020-07-05] MEDS: ASPIRIN ENTERIC COATED 81 MG TABLET.DR. PO SCH (08:45)
[2020-07-05] MEDS: BRIMONIDINE 0.2% OPHTH SOLUTION 5ML BOTTLE. OU SCH ×2 (08:45→20:56)
[2020-07-05] MEDS: MULTIVITAMIN with MINERAL TABLET. PO SCH (08:46)
[2020-07-05] MEDS: FUROSEMIDE 40 MG/4 ML VIAL. IVP SCH (08:46)
[2020-07-05] MEDS: AMMONIUM LACTATE 12% TOPICAL LOTION 225GM BOTTLE. TP SCH ×2 (08:46→20:59)
--- NOTE | 2020-07-05 10:07 | NUR ---
SW following. Discussed with RN, pt from home with brother, room air, cardiac diet, COVID-19 negative. Pt declining to go to a facility. Plan is to discharge home with [facility]. RN notified. SW will continue to follow.
[2020-07-05 11:00] VITALS: BP 128/60
--- NOTE | 2020-07-05 11:55 | PDOC ---
[employer] PROGRESS NOTE Date of Service DOS: DATE: 07/05/20 TIME: 11:49 Chief Complaint Chief Complaint Head contusion s/p fall, pedal edema, UTI, potential CHF Lymphedema, perhaps an element of early failure to thrive Severe social situation at home (he has no electricity or water) Glaucoma, coronary artery disease, vascular disease, hard of hearing, blind right eye and prostate issues. History of Present Illness History of Present Illness 07/02/2020 - pt seen and assessed at bedside - discussed pt living condition with pt - discussed w/ RN - reviewed chart - reviewed pt edema and skin - discussed with case specialist, LIVING IN UNSAFE CONDITIONS, NO UTILITIES, NO HEAT 07/03/2020 - pt seen and assessed at bedside - discussed pt living condition with pt - discussed w/ RN - reviewed chart - reviewed pt edema and skin and toenails. all are improving - pt still has not spoken with brother with whom he lives, and wants to go home. 07/04/2020 - pt seen and assessed at bedside - bruising on R knee noted - pt on IV abx - pedal edema and skin improving - pt complained of diarrhea over night - discussed w/ RN - reviewed chart 07/05: Patient seen and evaluated. He is afebrile, no acute events overnight. Continue diuresis and A. fib management, per cardiology. Continue IV Rocephin for possible cellulitis. Will obtain procalcitonin likely discontinue antibiotics if negative. Charts and labs reviewed. Vitals/I&O Vitals/I&O: Vital Signs Date Time Temp Pulse Resp B/P (MAP) Pulse Ox O2 Delivery O2 Flow Rate FiO2 07/05/20 11:00 98.0 70 18 128/60 (82) 100 Room Air 98.0 I & O 07/04/20 07/04/20 07/05/20 15:00 23:00 07:00 Intake Total 300 ml 300 ml 600 ml Output Total 925 ml 700 ml Balance -625 ml 300 ml -100 ml Physical Exam General: Alert, Oriented X3, Cooperative, No acute distress Heart: Regular rate (no tele), Other (2/6 systolic murmur to LLS border) Lungs: Clear Abdomen: Soft Extremities: No cyanosis, Other (2-3+ bilateral LE pitting edema) Skin: Other (toe lesions with eschar looking skin lesion to toes, onychomycoses; contusion to occiput) Labs Labs: Laboratory Tests Test 07/05/20 07:10 White Blood Count 7.2 x10^3/uL (4.0-11.0) Red Blood Count 4.48 x10^6/uL (4.30-5.70) Hemoglobin 13.3 g/dL (13.0-17.5) Hematocrit 40.0 % (39.0-53.0) Mean Corpuscular Volume 89 fL (79-100) Mean Corpuscular Hemoglobin 30 pg (25-35) Mean Corpuscular Hemoglobin Concent 33 g/dL (31-37) Red Cell Distribution Width 14.6 % (11.5-14.5) Platelet Count 212 x10^3/uL (140-400) Neutrophils (%) (Auto) 70 % (31-73) Lymphocytes (%) (Auto) 14 % (24-48) Monocytes (%) (Auto) 10 % (0-9) Eosinophils (%) (Auto) 5 % (0-3) Basophils (%) (Auto) 1 % (0-3) Neutrophils # (Auto) 5.1 x10^3/uL (1.8-7.7) Lymphocytes # (Auto) 1.0 x10^3/uL (1.0-4.8) Monocytes # (Auto) 0.7 x10^3/uL (0.0-1.1) Eosinophils # (Auto) 0.4 x10^3/uL (0.0-0.7) Basophils # (Auto) 0.1 x10^3/uL (0.0-0.2) Sodium Level 144 mmol/L (136-145) Potassium Level 3.8 mmol/L (3.5-5.1) Chloride Level 107 mmol/L (98-107) Carbon Dioxide Level 30 mmol/L (21-32) Anion Gap 7 (6-14) Blood Urea Nitrogen 23 mg/dL (8-26) Creatinine 1.2 mg/dL (0.7-1.3) Estimated GFR (Cockcroft-Gault) 59.7 BUN/Creatinine Ratio 19 (6-20) Glucose Level 83 mg/dL (70-99) Calcium Level 8.3 mg/dL (8.5-10.1) Total Bilirubin 0.7 mg/dL (0.2-1.0) Aspartate Amino Transf (AST/SGOT) 23 U/L (15-37) Alanine Aminotransferase (ALT/SGPT) 26 U/L (16-63) Alkaline Phosphatase 77 U/L (46-116) Total Protein 6.3 g/dL (6.4-8.2) Albumin 2.6 g/dL (3.4-5.0) Albumin/Globulin Ratio 0.7 (1.0-1.7) Assessment and Plan Assessmemt and Plan Problems Medical Problems: (1) Contusion of right knee Status: Acute (2) Fall Status: Acute (3) Head contusion Status: Acute (4) Right hip pain Status: Acute (5) Self-care deficit Status: Acute Comment Review of Relevant I have reviewed the following items marlene (where applicable) has been applied. Justifications for Admission Other Justification ALEXANDRA STRONG MD Jul 05, 2020 11:55
[2020-07-05 15:00] VITALS: BP 124/58
[2020-07-05] MEDS: cefTRIAXone IV Push 1 GM VIAL. IVP SCH (19:03)
[2020-07-05 19:45] VITALS: BP 127/66
[2020-07-05] MEDS: ATORVASTATIN CALCIUM 20 MG TABLET PO SCH (20:56)
[2020-07-05] MEDS: LATANOPROST 0.005% OPHTH SOLUTION 2.5ML BOTTLE. OU SCH (20:56)
[2020-07-05 23:05] VITALS: BP 107/69
[2020-07-06 03:00] VITALS: BP 114/63
[2020-07-06 07:00] VITALS: BP 99/49
[2020-07-06] MEDS: LACTOBACILLUS RHAMNOSUS GG 1 CAPSULE. PO SCH (08:24)
[2020-07-06] MEDS: METOPROLOL TART IMMED RELEASE 25 MG TABLET. PO SCH (08:24)
[2020-07-06] MEDS: ASPIRIN ENTERIC COATED 81 MG TABLET.DR. PO SCH (08:24)
[2020-07-06] MEDS: MULTIVITAMIN with MINERAL TABLET. PO SCH (08:24)
[2020-07-06] MEDS: BRIMONIDINE 0.2% OPHTH SOLUTION 5ML BOTTLE. OU SCH (08:25)
[2020-07-06] MEDS: TIMOLOL 0.5% OPHTH SOLUTION 5ML BOTTLE. OU SCH (08:25)
[2020-07-06] MEDS: FUROSEMIDE 40 MG/4 ML VIAL. IVP SCH (08:25)
[2020-07-06] MEDS: AMMONIUM LACTATE 12% TOPICAL LOTION 225GM BOTTLE. TP SCH (08:26)
[2020-07-06 08:41] LABS: BASO # 0.1 x10^3/uL (0.0-0.2); BASO % 1 % (0-3); EOS # 0.3 x10^3/uL (0.0-0.7); EOS % 4 % (0-3); HEMATOCRIT 43.1 % (39.0-53.0); HEMOGLOBIN 14.2 g/dL (13.0-17.5); LYMPH # 0.9 x10^3/uL (1.0-4.8); LYMPH % 12 % (24-48); MEAN CORPUSCULAR HEMOGLOBIN 30 pg (25-35); MEAN CORPUSCULAR HGB CONC 33 g/dL (31-37); MEAN CORPUSCULAR VOLUME 90 fL (79-100); MONO # 0.6 x10^3/uL (0.0-1.1); MONO % 9 % (0-9); NEUT # 5.5 x10^3/uL (1.8-7.7); NEUT % 74 % (31-73); PLATELET COUNT 233 x10^3/uL (140-400); RED BLOOD COUNT 4.78 x10^6/uL (4.30-5.70); RED CELL DISTRIBUTION WIDTH 14.5 % (11.5-14.5); WHITE BLOOD COUNT 7.5 x10^3/uL (4.0-11.0)
[2020-07-06 09:15] LABS: ALBUMIN 2.8 g/dL (3.4-5.0); ALBUMIN/GLOBULIN RATIO 0.7 (1.0-1.7); CALCIUM 8.9 mg/dL (8.5-10.1); CREATININE 1.2 mg/dL (0.7-1.3); GFR 59.7; POTASSIUM 3.8 mmol/L (3.5-5.1); TOTAL BILIRUBIN 0.9 mg/dL (0.2-1.0); TOTAL PROTEIN 6.9 g/dL (6.4-8.2)
[2020-07-06 11:00] VITALS: BP 94/53
--- NOTE | 2020-07-06 11:34 | NUR ---
SW following for discharge planning. Spoke with RN and reviewed chart. Pt to discharge home today with [facility]. SW met with pt and confirmed street address. Pt resides with his brother but does not have transportation home. SW called [employer] transportation and arranged for transportation home today, 07/06. Confirmation of ride is trip number [id number]. SW awaiting final discharge orders. Addendum: 07/06/20 at 1338 by BYRON LUBIN Spoke with Shira from [facility] who obtained discharge orders. No further SW needs at this time.
--- NOTE | 2020-07-06 12:46 | PDOC ---
[employer] PROGRESS NOTE Date of Service DOS: DATE: 07/06/20 TIME: 12:44 Chief Complaint Chief Complaint Head contusion s/p fall, pedal edema, UTI, potential CHF Lymphedema, perhaps an element of early failure to thrive Severe social situation at home (he has no electricity or water) Glaucoma, coronary artery disease, vascular disease, hard of hearing, blind right eye and prostate issues. History of Present Illness History of Present Illness 07/02/2020 - pt seen and assessed at bedside - discussed pt living condition with pt - discussed w/ RN - reviewed chart - reviewed pt edema and skin - discussed with lining caser, LIVING IN UNSAFE CONDITIONS, NO UTILITIES, NO HEAT 07/03/2020 - pt seen and assessed at bedside - discussed pt living condition with pt - discussed w/ RN - reviewed chart - reviewed pt edema and skin and toenails. all are improving - pt still has not spoken with brother with whom he lives, and wants to go home. 07/04/2020 - pt seen and assessed at bedside - bruising on R knee noted - pt on IV abx - pedal edema and skin improving - pt complained of diarrhea over night - discussed w/ RN - reviewed chart 07/05: Patient seen and evaluated. He is afebrile, no acute events overnight. Continue diuresis and A. fib management, per cardiology. Continue IV Rocephin for possible cellulitis. Will obtain procalcitonin likely discontinue antibiotics if negative. Charts and labs reviewed. 07/06: Patient seen and evaluated. Procalcitonin undetectable, will discontinue IV antibiotics. Patient recommended prison, but refused. Preferring instead to go home with home health. Greater than 30 minutes spent managing the discharge this patient. Vitals/I&O Vitals/I&O: Vital Signs Date Time Temp Pulse Resp B/P (MAP) Pulse Ox O2 Delivery O2 Flow Rate FiO2 07/06/20 11:00 98.0 75 18 94/53 (67) 96 Room Air 98.0 I & O 07/05/20 07/05/20 07/06/20 15:00 23:00 07:00 Intake Total 700 ml 300 ml 700 ml Output Total 300 ml Balance 700 ml 300 ml 400 ml Physical Exam General: Alert, Oriented X3, Cooperative, No acute distress Heart: Regular rate (no tele), Other (2/6 systolic murmur to LLS border) Lungs: Clear Abdomen: Soft Extremities: No cyanosis, Other (2-3+ bilateral LE pitting edema) Skin: Other (toe lesions with eschar looking skin lesion to toes, onychomycoses; contusion to occiput) Labs Labs: Laboratory Tests Test 07/06/20 08:10 White Blood Count 7.5 x10^3/uL (4.0-11.0) Red Blood Count 4.78 x10^6/uL (4.30-5.70) Hemoglobin 14.2 g/dL (13.0-17.5) Hematocrit 43.1 % (39.0-53.0) Mean Corpuscular Volume 90 fL (79-100) Mean Corpuscular Hemoglobin 30 pg (25-35) Mean Corpuscular Hemoglobin Concent 33 g/dL (31-37) Red Cell Distribution Width 14.5 % (11.5-14.5) Platelet Count 233 x10^3/uL (140-400) Neutrophils (%) (Auto) 74 % (31-73) Lymphocytes (%) (Auto) 12 % (24-48) Monocytes (%) (Auto) 9 % (0-9) Eosinophils (%) (Auto) 4 % (0-3) Basophils (%) (Auto) 1 % (0-3) Neutrophils # (Auto) 5.5 x10^3/uL (1.8-7.7) Lymphocytes # (Auto) 0.9 x10^3/uL (1.0-4.8) Monocytes # (Auto) 0.6 x10^3/uL (0.0-1.1) Eosinophils # (Auto) 0.3 x10^3/uL (0.0-0.7) Basophils # (Auto) 0.1 x10^3/uL (0.0-0.2) Sodium Level 144 mmol/L (136-145) Potassium Level 3.8 mmol/L (3.5-5.1) Chloride Level 105 mmol/L (98-107) Carbon Dioxide Level 29 mmol/L (21-32) Anion Gap 10 (6-14) Blood Urea Nitrogen 29 mg/dL (8-26) Creatinine 1.2 mg/dL (0.7-1.3) Estimated GFR (Cockcroft-Gault) 59.7 BUN/Creatinine Ratio 24 (6-20) Glucose Level 88 mg/dL (70-99) Calcium Level 8.9 mg/dL (8.5-10.1) Total Bilirubin 0.9 mg/dL (0.2-1.0) Aspartate Amino Transf (AST/SGOT) 22 U/L (15-37) Alanine Aminotransferase (ALT/SGPT) 28 U/L (16-63) Alkaline Phosphatase 85 U/L (46-116) Total Protein 6.9 g/dL (6.4-8.2) Albumin 2.8 g/dL (3.4-5.0) Albumin/Globulin Ratio 0.7 (1.0-1.7) Assessment and Plan Assessmemt and Plan Problems Medical Problems: (1) Contusion of right knee Status: Acute (2) Fall Status: Acute (3) Head contusion Status: Acute (4) Right hip pain Status: Acute (5) Self-care deficit Status: Acute Comment Review of Relevant I have reviewed the following items marlene (where applicable) has been applied. Justifications for Admission Other Justification ALEXANDRA STRONG MD Jul 06, 2020 12:46
[2020-07-06] MEDS ORDERED: METO25TA4 PO (12:49)
--- NOTE | 2020-07-06 12:54 | SNU/HH DC ---
DISCHARGE WITH HOME HEALTH DISCHARGE INFORMATION: Discharge Date: Jul 06, 2020 Final Diagnosis: Problems Medical Problems: (1) Contusion of right knee Status: Acute (2) Fall Status: Acute (3) Head contusion Status: Acute (4) Right hip pain Status: Acute (5) Self-care deficit Status: Acute Condition on Discharge: Stable CODE STATUS: Code Status: Full HOME HEALTH: Face to Face: I certify this patient is under my care and that I, or a nurse practitioner or physician's commercial assistant working with me, had a face to face encounter that meets the physician face to face encounter requirements with this patient on 07/06/2020. Medical Complications: CHF (Diastolic CHF) RN For Eval/Treatment: Yes Physical Therapy For: Evalulation/Treatment Occupational Therapy For: Evaluation/Treatment Pt Meets Homebound Status: Extreme weakness w/ amb., Fatigue w/ amb. POST DISCHARGE ORDERS: Activity Instructions for Disc: Activity as tolerated Weight Bearing Status after Di: Non weight bearing Bathing Instructions: Shower-keep dressing dry Wound/Incision Care: Ice to area for comfort, May get incision wet CHECKS AFTER DISCHARGE: Checks after discharge: Check blood press - daily, Weigh Yourself Daily FOLLOW-UP: Follow Up With: Primary care in 5 to 10 days TREATMENT/EQUIPMENT ORDERS: Adaptive Equipment Issued: None CERTIFICATION STATEMENT: Certification Statement: Certification Statement: Based on the above finding, I certify that this patient is confined to the home and needs intermittent fci care, physical therapy and/or speech therapy, or continues to need occupational therapy.~ This patient is under my care, and I have initiated the establishment of the plan of care.~ This patient will be followed by myself or a community physician who will periodically review the plan of care. Home Meds Active Scripts Metoprolol Tartrate (METOPROLOL TARTRATE) 25 Mg Tablet, 25 MG PO BID for A-fib, #60 TAB 1 Refill Prov:ALEXANDRA STRONG MD 07/06/20 Atorvastatin Calcium (ATORVASTATIN CALCIUM) 20 Mg Tablet, 20 MG PO QHS, #30 TAB 2 Refills Prov:VÍCTOR BELL MD 12/04/15 Reported Medications Aspirin (ASPIRIN EC) 81 Mg Tablet.dr, 1 TAB PO DAILY for heart health, #30 TAB 3 Refills 07/11/19 Brimonidine Tartrate/Timolol (COMBIGAN EYE DROPS) 5 Ml Drops, 5 ML OP BID, DROP 01/23/18 Latanoprost (LATANOPROST) 2.5 Ml Drops, 1 DROP EACHEYE QHS, #7.5 ML 3 Refills 11/30/15 Discontinued Scripts Amlodipine Besylate (AMLODIPINE BESYLATE) 5 Mg Tablet, 5 MG PO DAILY for 30 Days, #30 TAB Prov:PEÑA HARGROVE MD 01/28/18 ALEXANDRA STRONG MD Jul 06, 2020 12:54
--- NOTE | 2020-07-06 13:00 | PDOC3 ---
Discharge Summary Visit Information Date of Admission: Jun 30, 2020 Date of Discharge: Jul 06, 2020 Final Diagnosis Problems Medical Problems: (1) Contusion of right knee Status: Acute (2) Fall Status: Acute (3) Head contusion Status: Acute (4) Right hip pain Status: Acute (5) Self-care deficit Status: Acute Brief Hospital Course Allergies Allergies Coded Allergies Type Severity Reaction Last Updated Verified No Known Drug Allergies 08/07/16 No Vital Signs Vital Signs Date Time Temp Pulse Resp B/P (MAP) Pulse Ox O2 Delivery O2 Flow Rate FiO2 07/06/20 11:00 98.0 75 18 94/53 (67) 96 Room Air 98.0 Lab Results Laboratory Tests Test 07/05/20 07:10 07/06/20 08:10 White Blood Count 7.2 x10^3/uL (4.0-11.0) 7.5 x10^3/uL (4.0-11.0) Red Blood Count 4.48 x10^6/uL (4.30-5.70) 4.78 x10^6/uL (4.30-5.70) Hemoglobin 13.3 g/dL (13.0-17.5) 14.2 g/dL (13.0-17.5) Hematocrit 40.0 % (39.0-53.0) 43.1 % (39.0-53.0) Mean Corpuscular Volume 89 fL (79-100) 90 fL (79-100) Mean Corpuscular Hemoglobin 30 pg (25-35) 30 pg (25-35) Mean Corpuscular Hemoglobin Concent 33 g/dL (31-37) 33 g/dL (31-37) Red Cell Distribution Width 14.6 % (11.5-14.5) 14.5 % (11.5-14.5) Platelet Count 212 x10^3/uL (140-400) 233 x10^3/uL (140-400) Neutrophils (%) (Auto) 70 % (31-73) 74 % (31-73) Lymphocytes (%) (Auto) 14 % (24-48) 12 % (24-48) Monocytes (%) (Auto) 10 % (0-9) 9 % (0-9) Eosinophils (%) (Auto) 5 % (0-3) 4 % (0-3) Basophils (%) (Auto) 1 % (0-3) 1 % (0-3) Neutrophils # (Auto) 5.1 x10^3/uL (1.8-7.7) 5.5 x10^3/uL (1.8-7.7) Lymphocytes # (Auto) 1.0 x10^3/uL (1.0-4.8) 0.9 x10^3/uL (1.0-4.8) Monocytes # (Auto) 0.7 x10^3/uL (0.0-1.1) 0.6 x10^3/uL (0.0-1.1) Eosinophils # (Auto) 0.4 x10^3/uL (0.0-0.7) 0.3 x10^3/uL (0.0-0.7) Basophils # (Auto) 0.1 x10^3/uL (0.0-0.2) 0.1 x10^3/uL (0.0-0.2) Sodium Level 144 mmol/L (136-145) 144 mmol/L (136-145) Potassium Level 3.8 mmol/L (3.5-5.1) 3.8 mmol/L (3.5-5.1) Chloride Level 107 mmol/L (98-107) 105 mmol/L (98-107) Carbon Dioxide Level 30 mmol/L (21-32) 29 mmol/L (21-32) Anion Gap 7 (6-14) 10 (6-14) Blood Urea Nitrogen 23 mg/dL (8-26) 29 mg/dL (8-26) Creatinine 1.2 mg/dL (0.7-1.3) 1.2 mg/dL (0.7-1.3) Estimated GFR (Cockcroft-Gault) 59.7 59.7 BUN/Creatinine Ratio 19 (6-20) 24 (6-20) Glucose Level 83 mg/dL (70-99) 88 mg/dL (70-99) Calcium Level 8.3 mg/dL (8.5-10.1) 8.9 mg/dL (8.5-10.1) Total Bilirubin 0.7 mg/dL (0.2-1.0) 0.9 mg/dL (0.2-1.0) Aspartate Amino Transf (AST/SGOT) 23 U/L (15-37) 22 U/L (15-37) Alanine Aminotransferase (ALT/SGPT) 26 U/L (16-63) 28 U/L (16-63) Alkaline Phosphatase 77 U/L (46-116) 85 U/L (46-116) Total Protein 6.3 g/dL (6.4-8.2) 6.9 g/dL (6.4-8.2) Albumin 2.6 g/dL (3.4-5.0) 2.8 g/dL (3.4-5.0) Albumin/Globulin Ratio 0.7 (1.0-1.7) 0.7 (1.0-1.7) Procalcitonin < 0.10 ng/mL (0.00-0.10) Laboratory Tests Test 07/06/20 08:10 White Blood Count 7.5 x10^3/uL (4.0-11.0) Red Blood Count 4.78 x10^6/uL (4.30-5.70) Hemoglobin 14.2 g/dL (13.0-17.5) Hematocrit 43.1 % (39.0-53.0) Mean Corpuscular Volume 90 fL (79-100) Mean Corpuscular Hemoglobin 30 pg (25-35) Mean Corpuscular Hemoglobin Concent 33 g/dL (31-37) Red Cell Distribution Width 14.5 % (11.5-14.5) Platelet Count 233 x10^3/uL (140-400) Neutrophils (%) (Auto) 74 % (31-73) Lymphocytes (%) (Auto) 12 % (24-48) Monocytes (%) (Auto) 9 % (0-9) Eosinophils (%) (Auto) 4 % (0-3) Basophils (%) (Auto) 1 % (0-3) Neutrophils # (Auto) 5.5 x10^3/uL (1.8-7.7) Lymphocytes # (Auto) 0.9 x10^3/uL (1.0-4.8) Monocytes # (Auto) 0.6 x10^3/uL (0.0-1.1) Eosinophils # (Auto) 0.3 x10^3/uL (0.0-0.7) Basophils # (Auto) 0.1 x10^3/uL (0.0-0.2) Sodium Level 144 mmol/L (136-145) Potassium Level 3.8 mmol/L (3.5-5.1) Chloride Level 105 mmol/L (98-107) Carbon Dioxide Level 29 mmol/L (21-32) Anion Gap 10 (6-14) Blood Urea Nitrogen 29 mg/dL (8-26) Creatinine 1.2 mg/dL (0.7-1.3) Estimated GFR (Cockcroft-Gault) 59.7 BUN/Creatinine Ratio 24 (6-20) Glucose Level 88 mg/dL (70-99) Calcium Level 8.9 mg/dL (8.5-10.1) Total Bilirubin 0.9 mg/dL (0.2-1.0) Aspartate Amino Transf (AST/SGOT) 22 U/L (15-37) Alanine Aminotransferase (ALT/SGPT) 28 U/L (16-63) Alkaline Phosphatase 85 U/L (46-116) Total Protein 6.9 g/dL (6.4-8.2) Albumin 2.8 g/dL (3.4-5.0) Albumin/Globulin Ratio 0.7 (1.0-1.7) Brief Hospital Course Mr. Ralph is a 69 old male who presented with mechanical fall, bilateral lower extremity edema, diastolic CHF. Consultations placed to cardiology and podiatry. He had an echocardiogram that showed systolic function 55 to 60%. He received physical therapy and daily diuresis. He was recommended intermediate unit but patient refused, opting instead to return home with his brother and receive home health. Discharge Information Condition at Discharge: Stable Disposition/Orders: D/C to Home w/ HH Scheduled Aspirin (Aspirin Ec) 81 Mg Tablet., 1 TAB PO DAILY for heart health, #30 Ref 3 (Reported) Entered as Reported by: YADY DUNLAP on 07/11/191138 Last Action: Continued on 06/30/202120 by BIANCA FOX Atorvastatin Calcium (Atorvastatin Calcium) 20 Mg Tablet, 20 MG PO QHS, #30 Ref 2 Prescribed by: VÍCTOR BELL on 12/04/15 1137 Last Action: Continued on 06/30/202120 by BIANCA FOX Brimonidine Tartrate/Timolol (Combigan Eye Drops) 5 Ml Drops, 5 ML OP BID, (Reported) Entered as Reported by: Norm Correia on 01/23/18 193 Last Action: Converted on 06/30/202120 by BIANCA FOX Latanoprost (Latanoprost) 2.5 Ml Drops, 1 DROP EACHEYE Q, #7.5 Ref 3 (Reported) Entered as Reported by: CHRISTIAN MONTOYA on 11/30/15 1354 Last Action: Continued on 06/30/202120 by BIANCA FOX Metoprolol Tartrate (Metoprolol Tartrate) 25 Mg Tablet, 25 MG PO BID for A-fib, #60 Ref 1 Prescribed by: ALEXANDRA STRONG MD on 07/06/20 1249 Discontinued Medications Amlodipine Besylate (Amlodipine Besylate) 5 Mg Tablet, 5 MG PO DAILY for 30 Days, #30 Prescribed by: PEÑA HARGROVE MD on 01/28/18 1236 Last Action: Discontinued on 07/02/20 1351 by OLGA AGUIRRE Justicifation of Admission Dx: Justifications for Admission: Justification of Admission Dx: ALEXANDRA Hill MD Jul 06, 2020 13:00
--- NOTE | 2020-07-06 13:10 | NUR ---
Patient refused photographs , stated photographs were already taken yesterday. Addendum: 07/06/20 at 1312 by BONNIE APARICIO RN RN Amended: Links added.
--- NOTE | 2020-07-13 10:38 | RAD ---
MR#: [id number] Date of Study: 07/01/2020 Ordering Physician: OLGA AGUIRRE, Referring Physician: OLGA AGUIRRE, Tech: APPROVED REPORT Patient Location: IN-PATIENT Indications PAD VELOCITY AND DOPPLER WAVEFORM ANALYSIS RIGHT cm/secWaveformSeverity LEFT cm/secWaveform Severity pCFA 161.0TriphasicpCFA 228.0Triphasic Prof Fem Art. 66.0BiphasicProf Fem Art. 59.0Biphasic Fem Art Prox. 147.0TriphasicFem Art Prox. 171.0Triphasic Fem Art Mid. 134.0TriphasicFem Art Mid. 216.0Triphasic Fem Art Dist. 114.0MonophasicFem Art Dist. 123.0Triphasic Pop Art(Fossa) 154.0MonophasicPop Art(AK) 105.0Monophasic ENTREPRENEURSHIP PROGRAM DIRECTOR Prox. 72.0MonophasicPTA Prox. 40.0Monophasic ENTREPRENEURSHIP PROGRAM DIRECTOR Dist. 48.0MonophasicPTA Dist. 43.0Monophasic PATRICIA Prox. 86.0MonophasicATA Prox. 98.0Monophasic DPA 52TriphasicDPA Critical Notification Critical Value: No Signed by : Arnav Sheppard, Electronically Approved : 07/13/2020 10:37:36
[2020-07-14] MEDS ORDERED: AMLO-186 PO (00:49)
== END 2020-07-06 13:01 | disposition home health service (06) | DRG 689 ==
LOC: ER 13:43 → 4 NORTH 18:31
PROVIDERS: ADMIT Internal Medicine; ATTEND Internal Medicine
PROC: 4B02XSZ Measurement of Cardiac Pacemaker, External Approach (ICD-10-PCS; principal; 2020-07-02)
PROC: 0HBRXZZ Excision of Toe Nail, External Approach (ICD-10-PCS; 2020-07-03)
PROC: 0HBRXZZ Excision of Toe Nail, External Approach (ICD-10-PCS; 2020-07-03)
PROC: 0HBRXZZ Excision of Toe Nail, External Approach (ICD-10-PCS; 2020-07-03)
PROC: 0HBRXZZ Excision of Toe Nail, External Approach (ICD-10-PCS; 2020-07-03)
PROC: 0HBRXZZ Excision of Toe Nail, External Approach (ICD-10-PCS; 2020-07-03)
PROC: 0HBRXZZ Excision of Toe Nail, External Approach (ICD-10-PCS; 2020-07-03)
PROC: 0HBRXZZ Excision of Toe Nail, External Approach (ICD-10-PCS; 2020-07-03)
PROC: 0HBRXZZ Excision of Toe Nail, External Approach (ICD-10-PCS; 2020-07-03)
PROC: 0HBRXZZ Excision of Toe Nail, External Approach (ICD-10-PCS; 2020-07-03)
PROC: 0HBRXZZ Excision of Toe Nail, External Approach (ICD-10-PCS; 2020-07-03)
PROC: 0HDNXZZ Extraction of Left Foot Skin, External Approach (ICD-10-PCS; 2020-07-03)
DX: N39.0 Urinary tract infection, site not specified (principal); I50.33 Acute on chronic diastolic (congestive) heart failure; N17.0 Acute kidney failure with tubular necrosis; I13.0 Hypertensive heart and chronic kidney disease with heart failure and stage 1 through stage 4 chronic kidney disease, or unspecified chronic kidney disease; I50.32 Chronic diastolic (congestive) heart failure; S80.01XA Contusion of right knee, initial encounter; S00.03XA Contusion of scalp, initial encounter; Z20.822 Contact with and (suspected) exposure to COVID-19; Z79.899 Other long term (current) drug therapy; I25.10 Atherosclerotic heart disease of native coronary artery without angina pectoris; Z83.3 Family history of diabetes mellitus; H54.61 Unqualified visual loss, right eye, normal vision left eye; H40.9 Unspecified glaucoma; E66.01 Morbid (severe) obesity due to excess calories; Z68.31 Body mass index [BMI] 31.0-31.9, adult; E03.9 Hypothyroidism, unspecified; I49.5 Sick sinus syndrome; Z95.0 Presence of cardiac pacemaker; I48.0 Paroxysmal atrial fibrillation; I73.9 Peripheral vascular disease, unspecified; I89.0 Lymphedema, not elsewhere classified; K21.9 Gastro-esophageal reflux disease without esophagitis; N18.30 Chronic kidney disease, stage 3 unspecified; N40.0 Benign prostatic hyperplasia without lower urinary tract symptoms; Z82.49 Family history of ischemic heart disease and other diseases of the circulatory system; L60.0 Ingrowing nail; L60.1 Onycholysis; B35.1 Tinea unguium; E78.5 Hyperlipidemia, unspecified; Z79.82 Long term (current) use of aspirin; M17.10 Unilateral primary osteoarthritis, unspecified knee; Z91.81 History of falling; I25.5 Ischemic cardiomyopathy; H91.90 Unspecified hearing loss, unspecified ear; W01.0XXA Fall on same level from slipping, tripping and stumbling without subsequent striking against object, initial encounter; Y93.89 Activity, other specified; Y92.89 Other specified places as the place of occurrence of the external cause; Y99.8 Other external cause status
CPT/HCPCS: 36415; 70450; 72125; 72128; 72131; 73502; 73562; 80053; 81001; 83880; 84145; 84439; 84443; 84484; 85025; 87077; 87086; 87186; 87426; 90471; 90686; 90715; 93306; 93925; J0696; J1940; Q9956; U0003; 97110-GP; 97116-GP; 97530-GO; 97530-GP; 97535-GO; 99285-25; G0378

== ENCOUNTER 2021-03-22 11:27 | Inpatient (IN) | payer OTHER ==
[~2021-03-22] VITALS: Ht 182.9 cm; Wt 111.0 kg
[~2021-03-22 11:27] MED LIST changes: -LISI-517 PO; +LISI5TAB15 PO; +POTA-121 PO; -POTA20TA4 PO
[2021-03-22] MEDS ORDERED: ASPIRIN CHEWABLE 81 MG TABLET. PO ONE (12:30)
[2021-03-22 12:54] LABS: BASO % 0 % (0-3); EOS # 0.2 x10^3/uL (0.0-0.7); EOS % 3 % (0-3); HEMATOCRIT 38.4 % (39.0-53.0); HEMOGLOBIN 12.8 g/dL (13.0-17.5); LYMPH % 11 % (24-48); MEAN CORPUSCULAR HEMOGLOBIN 29 pg (25-35); MEAN CORPUSCULAR HGB CONC 33 g/dL (31-37); MEAN CORPUSCULAR VOLUME 86 fL (79-100); MONO # 0.7 x10^3/uL (0.0-1.1); MONO % 8 % (0-9); NEUT # 6.6 x10^3/uL (1.8-7.7); NEUT % 77 % (31-73); PLATELET COUNT 339 x10^3/uL (140-400); RED BLOOD COUNT 4.48 x10^6/uL (4.30-5.70); RED CELL DISTRIBUTION WIDTH 15.4 % (11.5-14.5); WHITE BLOOD COUNT 8.5 x10^3/uL (4.0-11.0)
--- NOTE | 2021-03-22 13:01 | PHYS DOC ---
Past Medical History Past Medical History: A-Fib, Glaucoma, Heart Disease, Vascular Disease Additional Past Medical Histor: MASHPEE, blind right eye, lymphadema, poor historian Past Surgical History: Pacemaker, Other Additional Past Surgical Histo: PROSTATE Smoking Status: Never Smoker Alcohol Use: None Drug Use: None General Adult EDM: Chief Complaint: CHEST PAIN HPI: HPI: Patient is a 70 year old male who presents with chest pain, which began today. He describes mid sternal chest pressure. He reports dizziness and nausea and generalized weakness. He describes palpitations. His chest pain has resolved on arrival. He reports minimal dyspnea with the chest pain, and no change from chronic dyspnea with exertion. He has chronic bilateral lower extremity lymphedema. He had not removed his socks or shoes in many weeks. He has maceration and malodorous drainage coming from both feet and both lower extremities. He denies any pain. He denies fevers. He denies syncope. He has a history of atrial fibrillation, as well as a pacemaker/ICD implant. He sees cardiology here routinely. He reports compliance with medications. He reports that he took a half of a baby aspirin prior to arrival. He does not regularly take anticoagulant medications. He reports that he is not aware that he has been back in atrial fibrillation in some time. Review of Systems: Review of Systems: Constitutional: Denies fever or chills. [] Eyes: Denies change in visual acuity. [] HENT: Denies nasal congestion or sore throat. [] Respiratory: Denies cough. Denies hemoptysis. Admits to shortness of breath and chronic dyspnea with exertion. Cardiovascular: Reports chest pain. Reports chronic but lateral lower extremity lymphedema and swelling. Reports palpitations. GI: Denies abdominal pain, nausea, vomiting : Denies urinary symptoms Musculoskeletal: Denies back pain or joint pain. [] Integument: Bilateral lower extremity venous stasis, bilateral foot rash and maceration Neurologic: Denies headache, focal weakness or sensory changes. Reports brief dizziness currently resolved. No syncope. Psychiatric: Denies depression or anxiety. [] Heart Score: C/O Chest Pain: Yes HEART Score for Chest Pain: HEART Score for Chest Pain Response (Comments) Value History Moderately Suspicious 1 ECG Nonspecific Repolarizatio 1 Age > 65 2 Risk Factors >3 Risk Factors or Hx CAD 2 Troponin >1-<3x Normal Limit 1 Total 7 Risk Factors: Risk Factors: DM, Current or recent (<one month) smoker, HTN, HLP, family history of CAD, obesity. Risk Scores: Score 0 - 3: 2.5% MACE over next 6 weeks - Discharge Home Score 4 - 6: 20.3% MACE over next 6 weeks - Admit for Clinical Observation Score 7 - 10: 72.7% MACE over next 6 weeks - Early Invasive Strategies Current Medications: Current Medications Medications (Trade) Dose Ordered Sig/Placido Start Time Stop Time Status Last Admin Dose Admin Aspirin (Aspirin Chewable) 324 mg 1X ONCE 03/22/21 12:30 03/22/21 12:31 DC 03/22/21 12:43 324 MG Diltiazem HCl (Cardizem Iv Push) 10 mg 1X ONCE 03/22/21 12:15 03/22/21 12:17 DC 03/22/21 12:44 10 MG Allergies: Allergies: Allergies Coded Allergies Type Severity Reaction Last Updated Verified No Known Drug Allergies 03/22/21 No Physical Exam: PE: Constitutional: Well developed, well nourished, no acute distress, non-toxic appearance. He is chronically ill-appearing. HENT: Normocephalic, atraumatic, bilateral external ears normal, his membranes are moist. Eyes: There are clear and nonicteric Neck: Normal range of motion, no tenderness, supple, trachea midline Cardiovascular: Tachycardic, irregularly irregular. +2 radial pulses laterally, equal bilateral dorsalis pedis pulses Lungs & Thorax: Bilateral breath sounds clear to auscultation, minimally diminished in the bilateral lung bases. No rales, rhonchi or wheezing. Equal chest rise. No distress. Abdomen: Bowel sounds normal, soft, no tenderness Skin: There is malodorous, serous fluid weeping from bilateral lower extremities, bilateral feet. There is diffuse skin maceration and erythema of his bilateral feet and toes and interdigital spaces. There is no focal area of fluctuance or purulent drainage. No palpable tenderness. Extremities: There is marked bilateral, symmetric lower extremity lymphedema. Bilateral lower extremity venous stasis. Bilateral lower extremity skin weeping, bilateral foot maceration and skin breakdown. No calf tenderness. Neurologic: Alert and oriented X 3, normal motor function, no facial asymmetry, moves all 4 extremities equally. Psychologic: Affect. He is cooperative. Current Patient Data: Vital Signs: Vital Signs Date Time Temp Pulse Resp B/P (MAP) Pulse Ox O2 Delivery O2 Flow Rate FiO2 03/22/21 12:47 123 24 91/56 (68) 98 Room Air 03/22/21 11:41 98.2 98.2 EKG: EKG: EKG is interpreted at 1140 Rhythm is irregularly irregular, atrial fibrillation with RVR Rate is 149 bpm [place] is left No STEMI EKG is interpreted at 1153 Rhythm is irregularly irregular, atrial fibrillation with RVR Rate is 158 bpm [place] is left No STEMI Radiology/Procedures: Radiology/Procedures: IMAGING REPORT Signed PATIENT: JOSE MERCADO ACCOUNT: [id number] : 1950 LOCATION: ER AGE: 70 SEX: M EXAM STATUS: REG ER ORD. PHYSICIAN: BRAULIO MENEZES DO REASON: chest pain PROCEDURE: PORTABLE CHEST 1V AP chest. HISTORY: Chest pain AP view was taken of the chest. Heart is enlarged. There is a left pacemaker w ithout change. There is blunting of the right costophrenic angle from pleural thickening or small effusion. No confluent areas of infiltrate are noted. IMPRESSION: 1. Cardiomegaly. 2. Pleural thickening or small effusion on the right. 3. No acute infiltrates. Electronically signed by: Balwinder Rothman MD (03/22/2021 1:04 PM) [id number] DICTATED and SIGNED BY: BALWINDER ROTHMAN MD DATE: 03/22/21 [id number] 0 Course & Med Decision Making: Course & Med Decision Making Pertinent Labs and Imaging studies reviewed. (See chart for details) P.o. aspirin is given. Is given a 10 mg bolus of IV diltiazem, with only modest improvement of his heart rate. His blood pressure did drop to the 80s systolic briefly. He was given a small fluid bolus. I had initially ordered IV amiodarone drip, but just prior to this being administered, the patient converted to a sinus rhythm, rates in the 70s and 80s. Blood pressure is stable. He is given a dose of subcutaneous Lovenox. He remains chest pain- free. His serial troponins are trending upward. I have consulted Dr. Sheppard of cardiology, who will see the patient. The patient has a longstanding history of noncompliance, has missed multiple clinic visits. Wound care services came to see him and recommend vascular and orthopedics be involved with his care for his chronic foot wounds. I have explained my recommendation for admission, and he is comfortable with this. Timmy Disclaimer: Timmy Disclaimer: This electronic medical record was generated, in whole or in part, using a voice recognition dictation system. Departure Departure Impression: Primary Impression: Chest pain Additional Impressions: Atrial fibrillation with rapid ventricular response Elevated troponin I level Lymphedema of both lower extremities Self-care deficit Disposition: ADMITTED INPATIENT Admitting Physician: ASHLEY Referrals: NO PCP (PCP) BRAULIO MENEZES DO Mar 22, 2021 13:01
--- NOTE | 2021-03-22 13:06 | RAD ---
AP chest. HISTORY: Chest pain AP view was taken of the chest. Heart is enlarged. There is a left pacemaker without change. There is blunting of the right costophrenic angle from pleural thickening or small effusion. No confluent are as of infiltrate are noted. IMPRESSION: 1. Cardiomegaly. 2. Pleural thickening or small effusion on the right. 3. No acute infiltrates. Electronically signed by: Balwinder Rothman MD (03/22/2021 1:04 PM) [id number]
[2021-03-22] MEDS ORDERED: AMIODARONE 450 MG in IV DEXTROSE 5% 250 ML IV PRN (13:45)
[2021-03-22 13:52] LABS: CALCIUM 8.6 mg/dL (8.5-10.1); CREATININE 1.6 mg/dL (0.7-1.3); GFR 42.7; POTASSIUM 4.4 mmol/L (3.5-5.1)
[2021-03-22] MEDS ORDERED: IV NORMAL SALINE 500ML BAG 500 ML IV ONE (14:00)
[2021-03-22 14:06] LABS: ALBUMIN 2.5 g/dL (3.4-5.0); ALBUMIN/GLOBULIN RATIO 0.5 (1.0-1.7); MAGNESIUM 2.3 mg/dL (1.8-2.4); TOTAL BILIRUBIN 0.5 mg/dL (0.2-1.0); TOTAL PROTEIN 7.4 g/dL (6.4-8.2)
[2021-03-22] MEDS ORDERED: ONDANSETRON PF 4 MG/2 ML VIAL. IVP PRN ×2 (14:30→16:00)
--- NOTE | 2021-03-22 15:45 | NUR ---
Wound/Ostomy Care Wound Type/Assessment: Wound care consult for multiple right foot PUs and lymphedema to bilateral lower legs/feet, pt seen in ED (see wound intervention for details). Per ER nurse, pt kept hospital socks and boots on for 6 weeks without removing them. Right plantar 5th head metatarsal with bone exposed, right plantar foot with some eschar and slough, bone is close to being exposed as well. All wounds were cleansed, measured and pictured. Pt has swelling with skin changes on bilateral feet d/t lymphedema. Buttocks is red but blanchable, pt advised to turn q2h to avoid skin breakdown in that area, calazime applied for protection. Treatment Recommendations/Plan: Cleanse all wounds and pat dry. Right plantar foot, right plantar 5th head metatarsal: pack with 1/4 iodoform packing (nurse will need to order from [facility] once pt has a bed on the floor), then cover with abd and kerlix, change daily Right heel, right dorsal toes: paint with betadine daily and cover with abd and kerlix, change daily. Buttocks: apply calazime daily for protection Education provided: pt educated on PU healing/prevention Offloading surface/device: turn q2h using purple wedge, elevate legs on pillows, pt should be non-weigh bearing to R foot for wound healing Recommended Referrals/Tests: vascular surgery for vascular assessment/debridement of right plantar wounds Discharge Recommendations for dressings: same as above, WC team will f/u after vascular surgery assessment
--- NOTE | 2021-03-22 15:55 | PDOC2 ---
OLGA AGUIRRE TAKER DOWN 03/22/21 1555: CARDIAC CONSULT DATE OF CONSULT Date of Consult DATE: 03/22/21 TIME: 15:43 REASON FOR CONSULT Reason for Consult: AFIB, CP, elevated trop REFERRING PHYSICIAN Referring Physician: Chapito SOURCE Source: Chart review, Patient HISTORY OF PRESENT ILLNESS HISTORY OF PRESENT ILLNESS This is a pleasant 70 yo male admitted for complains of chest pain and palpitations. Has some SOA and upon admission he was noted with AFIB RVR. He has chronic LBBB and hx of PAFIB. No nausea or vomiting and no prior exposure to covid-19 and unvaccinated. He takes baby ASA at home and takes statin but unclear about BP meds. He was notably dehydrated and his BP was low. He has not been able to care for himself despite his brothers help and debilitated. He has not been compliant with his follow ups and has no showed at least 5x and we have not been able to keep track of his PPM as he has not been utilizing his home transmitter if it is still operational and has not been following up. No recent surgeries. No use of NSAIDs. His leg has been chronically edematous and has been complaining of right foot pain and currently it is erythematous and and is weeping. He was given cardizem bolus and converted to SR. PAST MEDICAL HISTORY Past Medical History Cardiovascular: CAD, CHF, HTN, Hyperlipidemia, Other (Mixed ischemic and non- ischemic cardiomyopathy ; Mild ascending aortic aneurysm measuring 4.5 cm in transverse dimension via CT chest 2015; chronic leg edema; chronic LBBB), PAFIB, SSS Pulmonary: No pertinent hx GI: GERD Heme/Onc: Anemia NOS Hepatobiliary: No pertinent hx Psych: No pertinent hx Musculoskeletal: Osteoarthritis Rheumatologic: No pertinent hx Infectious disease: No pertinent hx ENT: Other (glaucoma) Renal/: Chronic renal insuff (CKD3), Benign prostatic enlarg. Endocrine: No pertinent hx PAST SURGICAL HISTORY Past Surgical History LHC; Prostate laser surgery, PPM FAMILY HISTORY Family History: Heart Disease SOCIAL HISTORY Smoke: No ALCOHOL: none Drugs: None Lives: with Family CURRENT MEDICATIONS CURRENT MEDICATIONS Current Medications Medications (Trade) Dose Ordered Sig/Placido Route PRN Reason Start Time Stop Time Status Last Admin Dose Admin Aspirin (Aspirin Chewable) 324 mg 1X ONCE PO 03/22/21 12:30 03/22/21 12:31 DC 03/22/21 12:43 Diltiazem HCl (Cardizem Iv Push) 10 mg 1X ONCE IVP 03/22/21 12:15 03/22/21 12:17 DC 03/22/21 12:44 Sodium Chloride 500 ml @ 500 mls/hr 1X ONCE IV 03/22/21 14:00 03/22/21 14:59 DC 03/22/21 13:56 Enoxaparin Sodium (Lovenox 100mg Syringe) 100 mg 1X ONCE SQ 03/22/21 14:15 03/22/21 14:18 DC 03/22/21 15:21 ALLERGIES ALLERGIES: Coded Allergies: No Known Drug Allergies (Unverified , 03/22/21) ROS Review of System 14 point ROS evaluated with pertinent positives noted per HPI PHYSICAL EXAM General: Alert, Oriented X3, Cooperative, No acute distress HEENT: Atraumatic, Mucous membr. moist/pink Lungs: Clear to auscultation, Normal air movement Heart: Regular rate (Atrial paced), Other (distant heart sounds) Abdomen: Soft, No tenderness, Other (obese) Extremities: No cyanosis, Other (LE lymphedema weeping) Skin: Other (LE venous dermaititis, chronic lyphemdema with right foot erythema) Neuro: Normal speech, Sensation intact Psych/Mental Status: Mental status NL, Mood NL MUSCULOSKELETAL: Osteoarthritic changes both hands VITALS/I&O VITALS/I&O: Vital Signs Date Time Temp Pulse Resp B/P (MAP) Pulse Ox O2 Delivery O2 Flow Rate FiO2 03/22/21 13:58 128 24 92/53 (66) 96 Room Air 03/22/21 11:41 98.2 98.2 LABS Lab: Laboratory Tests Test 03/22/21 12:25 03/22/21 13:20 03/22/21 14:50 White Blood Count 8.5 x10^3/uL (4.0-11.0) Red Blood Count 4.48 x10^6/uL (4.30-5.70) Hemoglobin 12.8 g/dL (13.0-17.5) L Hematocrit 38.4 % (39.0-53.0) L Mean Corpuscular Volume 86 fL (79-100) Mean Corpuscular Hemoglobin 29 pg (25-35) Mean Corpuscular Hemoglobin Concent 33 g/dL (31-37) Red Cell Distribution Width 15.4 % (11.5-14.5) H Platelet Count 339 x10^3/uL (140-400) Neutrophils (%) (Auto) 77 % (31-73) H Lymphocytes (%) (Auto) 11 % (24-48) L Monocytes (%) (Auto) 8 % (0-9) Eosinophils (%) (Auto) 3 % (0-3) Basophils (%) (Auto) 0 % (0-3) Neutrophils # (Auto) 6.6 x10^3/uL (1.8-7.7) Lymphocytes # (Auto) 1.0 x10^3/uL (1.0-4.8) Monocytes # (Auto) 0.7 x10^3/uL (0.0-1.1) Eosinophils # (Auto) 0.2 x10^3/uL (0.0-0.7) Basophils # (Auto) 0.0 x10^3/uL (0.0-0.2) Sodium Level 140 mmol/L (136-145) Potassium Level 4.4 mmol/L (3.5-5.1) Chloride Level 105 mmol/L (98-107) Carbon Dioxide Level 28 mmol/L (21-32) Anion Gap 7 (6-14) Blood Urea Nitrogen 12 mg/dL (8-26) Creatinine 1.6 mg/dL (0.7-1.3) H Estimated GFR (Cockcroft-Gault) 42.7 BUN/Creatinine Ratio 8 (6-20) Glucose Level 107 mg/dL (70-99) H Lactic Acid Level 0.8 mmol/L (0.4-2.0) Calcium Level 8.6 mg/dL (8.5-10.1) Magnesium Level 2.3 mg/dL (1.8-2.4) Total Bilirubin 0.5 mg/dL (0.2-1.0) Aspartate Amino Transferase (AST) 14 U/L (15-37) L Alanine Aminotransferase (ALT) 14 U/L (16-63) L Alkaline Phosphatase 88 U/L (46-116) Troponin I Quantitative 0.058 ng/mL (0.000-0.055) 0.103 ng/mL (0.000-0.055) PD-Fql-Y-Type Natriuretic Peptide 1108 pg/mL (0-124) H Total Protein 7.4 g/dL (6.4-8.2) Albumin 2.5 g/dL (3.4-5.0) L Albumin/Globulin Ratio 0.5 (1.0-1.7) L Thyroid Stimulating Hormone (TSH) 5.257 uIU/mL (0.358-3.74) H Laboratory Tests 03/22/21 12:25 Laboratory Tests 03/22/21 13:20 ECHOCARDIOGRAM ECHOCARDIOGRAM <Conclusion> Technically difficult study. The left ventricle is normal size. The left ventricular systolic function appears normal and the ejection fraction is within normal range. Systolic function is 55 to 60%. Doppler and Color Flow revealed no significant aortic regurgitation. There is no significant aortic valvular stenosis. Doppler and Color-flow revealed trace to mild mitral regurgitation. Doppler and Color Flow revealed trace tricuspid regurgitation. DATE: 07/01/20 [id number] 0 HEART CATH HEART CATH HEMODYNAMICS: AO: 138/78 LVEDP 12 mm Hg No gradient on LV to aortic pullback. LEFT VENTRICULOGRAM: EF 50% Mild global hypokinesis. No significant aortic regurgitation. CORONARY ANGIOGRAPHY: LM is a large caliber vessel with a distal 20% stenosis. LAD is a large caliber vessel with mild luminal irregularities and it wraps around the apex. Ramus is a moderate caliber vessel with normal angiographic appearance. LCx is a moderate caliber non-dominant vessel with normal angiographic phyllis earance. OM1 is a moderate caliber vessel with normal angiographic appearance. RCA is a small to moderate caliber co-dominant vessel with a proximal to mid 50% stenosis. Conclusion 1. One vessel coronary artery disease. No acute lesions noted. 2. Severe sinus bradycardia with intermittent high grade AV block. Recommendations Aggressive medical therapy. Plan for pacemaker in a.m. DATE: 01/24/18 1420 ASSESSMENT/PLAN ASSESSMENT/PLAN 1. AFIB RVR with prior hx of paroxysms. converted to SR with cardizem bolus 2. Chest pain: due to palpitations 3. Diastolic CHF: compensated 4. SSS with PPM in situ: biotronik. presently atrial paced with chronic LBBB 5. CAD: no past intervention, clinically stable 6. CKD3 7. HTN: low end 8. HLP 9. Severe noncompliance 10. Mild troponin elevation: 0.1 suspect demand mediated likely due to RVR 11. Chronic lymphedema with likely superimposed cellulitis.plantar wound 12. Debility/poor self care Recommendations 1. ASA. 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 Dig IV x1 and will start on metoprolol tomorrow when BP is better 3. S/P IVF. Will consult ID. Arterial duplex to RLE 4. Discussed compliance. SS consult 5. Will interrogate device tomorrow. 6. TTE MATY DIAZ MD 03/23/21 1837: CARDIAC CONSULT ASSESSMENT/PLAN ASSESSMENT/PLAN Late entry for 03/22/2021 Patient seen and examined. Agree with above nurse practitioner note. Supportive care and continued evaluation of right lower extremity wound. OLGA AGUIRRE APRN Mar 22, 2021 15:55 MATY DIAZ MD Mar 23, 2021 18:37
[2021-03-22] MEDS ORDERED: oxyCODONE/APAP 5/325 1 TAB TABLET PO PRN ×2 (16:00)
[2021-03-22] MEDS ORDERED: ZOLPIDEM 5 MG TABLET. PO PRN (16:00)
[2021-03-22] MEDS ORDERED: oxyCODONE IR 5 MG TABLET PO PRN (16:00)
[2021-03-22] MEDS ORDERED: ELECTROLYTE (NON-ICU) PROTOCOL. MC PRN (16:00)
[2021-03-22] MEDS ORDERED: CALCIUM CARBONATE 500 MG TAB.CHEW PO PRN (16:00)
[2021-03-22] MEDS ORDERED: ACETAMINOPHEN 325 MG TABLET. PO PRN (16:00)
[2021-03-22] MEDS ORDERED: DIGOXIN IV 500 MCG/2 ML AMPUL. IV ONE (16:30)
--- NOTE | 2021-03-22 17:26 | PDOC1 ---
History and Physical Date of Service: DOS: DATE: 03/22/21 TIME: 17:15 Chief Complaint: Problems: (1) Dyspnea on exertion (2) Elevated troponin I level (3) Chest pain Chief Complain: Chest pain History of Present Illness: HPI: Patient is a 70-year-old male who presented to the emergency room this morning due to 1 day history of chest pain. Reports when he awoke this morning began having chest pain in the middle of his sternum and had an episode of nausea and dizziness. Given this he presented to the emergency room where chest pain actually had resolved on arrival however patient with many other problems. On arrival he is noted to be in atrial fibrillation. Has a known history of this, as a pacemaker in place. He is unaware the last time has been interrogated. Received a Cardizem bolus in emergency room and converted back to normal sinus. History of known cardiac problems frequently seen by cardiology here on admissions but patient usually does not follow-up. Patient also with very malodorous lower extremities. Per report from the emergency room patient said he had not taken off his shoes in 5 to 6 weeks. When his shoes were removed in the emergency room apparently malodorous liquid poured out of them. He does report having known wounds on his lower extremities. He is unaware if they have ever been evaluated. When I evaluated the patient he was resting in bed not really complaining of any more chest pain. Was having some lower extremity pain. Otherwise did not have much else to say. He was denying any further symptoms including headache, fevers, vision changes, shortness of breath, abdominal pain, dysuria Past Medical/Surgical History: PMH/PSH: Atrial fibrillation, glaucoma, vascular disease, renal disease Allergies: Allergies: Coded Allergies: No Known Drug Allergies (Unverified , 03/22/21) Family History: Family History: Reviewed with patient no known Social History: Social History: Denies alcohol tobacco drug use Current Medications: Current Medications Current Medications Aspirin (Aspirin Chewable) 324 mg 1X ONCE PO Last administered on 03/22/21at 12:43; Start 03/22/21 at 12:30; Stop 03/22/21 at 12:31; Status DC Diltiazem HCl (Cardizem Iv Push) 10 mg 1X ONCE IVP Last administered on 03/22/21at 12:44; Start 03/22/21 at 12:15; Stop 03/22/21 at 12:17; Status DC Diltiazem HCl 125 mg/Sodium Chloride 125 ml @ 5 mls/hr CONT PRN IV SEE PROTOCOL; Start 03/22/21 at 13:22; Stop 03/22/21 at 13:45; Status DC Amiodarone HCl 450 mg/Dextrose 259 ml @ 0 mls/hr CONT PRN IV SEE I/O RECORD; Start 03/22/21 at 13:45; Stop 03/23/21 at 13:45 Sodium Chloride 500 ml @ 500 mls/hr 1X ONCE IV Last administered on 03/22/21at 13:56; Start 03/22/21 at 14:00; Stop 03/22/21 at 14:59; Status DC Enoxaparin Sodium (Lovenox 100mg Syringe) 100 mg 1X ONCE SQ Last administered on 03/22/21at 15:21; Start 03/22/21 at 14:15; Stop 03/22/21 at 14:18; Status DC Ondansetron HCl (Zofran) 4 mg PRN Q8HRS PRN IVP NAUSEA/VOMITING; Start 03/22/21 at 14:30; Stop 03/23/21 at 14:29 Ondansetron HCl (Zofran) 4 mg PRN Q6HRS PRN IVP NAUSEA/VOMITING; Start 03/22/21 at 16:00 Calcium Carbonate/ Glycine (Tums) 500 mg PRN Q3HRS PRN PO UPSET STOMACH; Start 03/22/21 at 16:00 Zolpidem Tartrate (Ambien) 5 mg PRN QHS PRN PO INSOMNIA, MAY REPEAT IN 1HR; Start 03/22/21 at 16:00 Info (Non-Icu Electrolyte Protocol) 1 ea PRN DAILY PRN MC SEE COMMENTS; Start 03/22/21 at 16:00 Oxycodone HCl (Roxicodone) 5 mg PRN Q3HRS PRN PO BREAKTHROUGH PAIN; Start 03/22/21 at 16:00 Oxycodone/ Acetaminophen (Percocet 5/325) 1 tab PRN Q4HRS PRN PO MILD PAIN, 1ST CHOICE; Start 03/22/21 at 16:00 Oxycodone/ Acetaminophen (Percocet 5/325) 2 tab PRN Q4HRS PRN PO MODERATE PAIN, SEVERE PAIN; Start 03/22/21 at 16:00 Acetaminophen (Tylenol) 650 mg PRN Q6HRS PRN PO Headaches, Temp > 101.5F; Start 03/22/21 at 16:00 Senna/Docusate Sodium (Senna Plus) 1 tab BID PO ; Start 03/22/21 at 21:00 Heparin Sodium (Porcine) (Heparin Sodium) 5,000 unit Q8HRS SQ ; Start 03/22/21 at 22:00 Aspirin (Ecotrin) 81 mg DAILY PO ; Start 03/23/21 at 09:00 Atorvastatin Calcium (Lipitor) 20 mg QHS PO ; Start 03/22/21 at 21:00 Latanoprost (Xalatan) 1 drop QHS OU ; Start 03/22/21 at 21:00 Brimonidine Tartrate (Alphagan) 1 drop BID OD ; Start 03/22/21 at 21:00 Timolol Maleate (Timoptic 0.25% Ophth) 1 drop BID OU ; Start 03/22/21 at 21:00 Digoxin (Lanoxin) 250 mcg 1X ONCE IV ; Start 03/22/21 at 16:30; Stop 03/22/21 at 16:31; Status DC Active Scripts Active Atorvastatin Calcium 20 Mg Tablet 20 Mg PO QHS Reported Aspirin Ec (Aspirin) 81 Mg Tablet. 1 Tab PO DAILY Combigan Eye Drops (Brimonidine Tartrate/Timolol) 5 Ml Drops 5 Ml OP BID Latanoprost 2.5 Ml Drops 1 Drop EACHEYE QHS ROS: Review of Systems Review of System Unless noted in HPI 14 point review of systems was negative Physical Exam: Vital Signs: Vital Signs Date Time Temp Pulse Resp B/P (MAP) Pulse Ox O2 Delivery O2 Flow Rate FiO2 03/22/21 13:58 128 24 92/53 (66) 96 Room Air 03/22/21 11:41 98.2 98.2 Physcial Exam: GEN: Resting in bed HEENT: Normal cephalic, atraumatic, external auditory canals are patent EYES: Extraocular muscles are intact, pupil are equally round and reactive to light and accommodation MUSCULOSKELETAL: Very limited range of motion ENDOCRINE: No thyromegaly was palpated LYMPHATICS: No cervical chain or axillary nodes were noted HEMATOPOIETIC: No bruising NECK: Supple, no JVD, no thyromegaly was noted LUNGS: Clear to auscultation in all lung costello without rhonchi or wheezing HEART: Atrial paced rhythm ABDOMEN: Soft, nontender. Positive bowel sounds, no organomegaly, normal bowel sounds EXTREMITIES: Bilateral lower extremity lymphedema, changes of chronic venous stasis, wounds throughout lower extremities NEUROLOGIC: Normal speech and tone. A&O x 3, moves all extremities, no obvious focal deficits PSYCHIATRIC: Normal affect, normal mood. Stable SKIN: Multiple skin wounds in lower extremities very edematous Labs: Labs: Laboratory Tests Test 03/22/21 12:25 03/22/21 12:30 03/22/21 13:20 03/22/21 14:50 White Blood Count 8.5 x10^3/uL (4.0-11.0) Red Blood Count 4.48 x10^6/uL (4.30-5.70) Hemoglobin 12.8 g/dL (13.0-17.5) Hematocrit 38.4 % (39.0-53.0) Mean Corpuscular Volume 86 fL (79-100) Mean Corpuscular Hemoglobin 29 pg (25-35) Mean Corpuscular Hemoglobin Concent 33 g/dL (31-37) Red Cell Distribution Width 15.4 % (11.5-14.5) Platelet Count 339 x10^3/uL (140-400) Neutrophils (%) (Auto) 77 % (31-73) Lymphocytes (%) (Auto) 11 % (24-48) Monocytes (%) (Auto) 8 % (0-9) Eosinophils (%) (Auto) 3 % (0-3) Basophils (%) (Auto) 0 % (0-3) Neutrophils # (Auto) 6.6 x10^3/uL (1.8-7.7) Lymphocytes # (Auto) 1.0 x10^3/uL (1.0-4.8) Monocytes # (Auto) 0.7 x10^3/uL (0.0-1.1) Eosinophils # (Auto) 0.2 x10^3/uL (0.0-0.7) Basophils # (Auto) 0.0 x10^3/uL (0.0-0.2) SARS-CoV-2 Antigen (Rapid) Negative (NEGATIVE) Sodium Level 140 mmol/L (136-145) Potassium Level 4.4 mmol/L (3.5-5.1) Chloride Level 105 mmol/L (98-107) Carbon Dioxide Level 28 mmol/L (21-32) Anion Gap 7 (6-14) Blood Urea Nitrogen 12 mg/dL (8-26) Creatinine 1.6 mg/dL (0.7-1.3) Estimated GFR (Cockcroft-Gault) 42.7 BUN/Creatinine Ratio 8 (6-20) Glucose Level 107 mg/dL (70-99) Lactic Acid Level 0.8 mmol/L (0.4-2.0) Calcium Level 8.6 mg/dL (8.5-10.1) Magnesium Level 2.3 mg/dL (1.8-2.4) Total Bilirubin 0.5 mg/dL (0.2-1.0) Aspartate Amino Transf (AST/SGOT) 14 U/L (15-37) Alanine Aminotransferase (ALT/SGPT) 14 U/L (16-63) Alkaline Phosphatase 88 U/L (46-116) Troponin I Quantitative 0.058 ng/mL (0.000-0.055) 0.103 ng/mL (0.000-0.055) BH-Lcs-S-Type Natriuretic Peptide 1108 pg/mL (0-124) Total Protein 7.4 g/dL (6.4-8.2) Albumin 2.5 g/dL (3.4-5.0) Albumin/Globulin Ratio 0.5 (1.0-1.7) Thyroid Stimulating Hormone (TSH) 5.257 uIU/mL (0.358-3.74) Laboratory Tests Test 03/22/21 12:25 03/22/21 12:30 03/22/21 13:20 03/22/21 14:50 White Blood Count 8.5 x10^3/uL (4.0-11.0) Red Blood Count 4.48 x10^6/uL (4.30-5.70) Hemoglobin 12.8 g/dL (13.0-17.5) Hematocrit 38.4 % (39.0-53.0) Mean Corpuscular Volume 86 fL (79-100) Mean Corpuscular Hemoglobin 29 pg (25-35) Mean Corpuscular Hemoglobin Concent 33 g/dL (31-37) Red Cell Distribution Width 15.4 % (11.5-14.5) Platelet Count 339 x10^3/uL (140-400) Neutrophils (%) (Auto) 77 % (31-73) Lymphocytes (%) (Auto) 11 % (24-48) Monocytes (%) (Auto) 8 % (0-9) Eosinophils (%) (Auto) 3 % (0-3) Basophils (%) (Auto) 0 % (0-3) Neutrophils # (Auto) 6.6 x10^3/uL (1.8-7.7) Lymphocytes # (Auto) 1.0 x10^3/uL (1.0-4.8) Monocytes # (Auto) 0.7 x10^3/uL (0.0-1.1) Eosinophils # (Auto) 0.2 x10^3/uL (0.0-0.7) Basophils # (Auto) 0.0 x10^3/uL (0.0-0.2) SARS-CoV-2 Antigen (Rapid) Negative (NEGATIVE) Sodium Level 140 mmol/L (136-145) Potassium Level 4.4 mmol/L (3.5-5.1) Chloride Level 105 mmol/L (98-107) Carbon Dioxide Level 28 mmol/L (21-32) Anion Gap 7 (6-14) Blood Urea Nitrogen 12 mg/dL (8-26) Creatinine 1.6 mg/dL (0.7-1.3) Estimated GFR (Cockcroft-Gault) 42.7 BUN/Creatinine Ratio 8 (6-20) Glucose Level 107 mg/dL (70-99) Lactic Acid Level 0.8 mmol/L (0.4-2.0) Calcium Level 8.6 mg/dL (8.5-10.1) Magnesium Level 2.3 mg/dL (1.8-2.4) Total Bilirubin 0.5 mg/dL (0.2-1.0) Aspartate Amino Transf (AST/SGOT) 14 U/L (15-37) Alanine Aminotransferase (ALT/SGPT) 14 U/L (16-63) Alkaline Phosphatase 88 U/L (46-116) Troponin I Quantitative 0.058 ng/mL (0.000-0.055) 0.103 ng/mL (0.000-0.055) KY-Kbw-X-Type Natriuretic Peptide 1108 pg/mL (0-124) Total Protein 7.4 g/dL (6.4-8.2) Albumin 2.5 g/dL (3.4-5.0) Albumin/Globulin Ratio 0.5 (1.0-1.7) Thyroid Stimulating Hormone (TSH) 5.257 uIU/mL (0.358-3.74) Assessment/Plan Assessment/Plan Atrial fibrillation with RVR, bilateral lower extremity chronic wounds and ulcers, lymphedema, inability to care for self, ANTWAN unknown baseline, severe malnutrition -Patient presented here with 1 day history of chest pain. Found to be A. fib with RVR here converted with Cardizem bolus. -Patient with known cardiac history. Frequently seen by cardiology here inpatient but usually will not follow-up outpatient. -Cardiology consulted today -Patient also very malnourished lower extremities with chronic wounds. Wound care consulted -Also consult to vascular surgery and orthopedics in emergency room -Patient afebrile no leukocytosis on room air normal blood pressure, will hold off on antibiotics at this point in the event surgical intervention performed to improve culture yield -However if any of the consulted subspecialist service would prefer antibiotics to be start will start broad-spectrum -We will have consults see patient prior to PT OT evaluation -Lymphedema consult -DVT prophylaxis -Cardiac diet -Home meds resumed as indicated Justifications for Admission Other Justification VIRGINIE BONILLA MD Mar 22, 2021 17:26
[2021-03-22 17:30] VITALS: BP 124/79
--- NOTE | 2021-03-22 18:31 | EKG ---
[facility] [address] [place] [address] Test Date: 2021-03-22 Test Time: 11:32:37 Pat Name: JOSE MERCADO Department: Room: [facility] Gender: M Table Tender: : 1950 Requested By: BRAULIO MENEZES Order Number: [id number] Reading MD: Arnav Sheppard MD Measurements Intervals [place] Rate: 153 P: [place]: QRS: -84 QRSD: 124 T: 149 QT: 304 QTc: 490 Interpretive Statements Atrial fibrillation with rapid ventricular response NON-SPECIFIC ST/T CHANGES Electronically Signed On 03-23-2021 17:40:51 CDT by Arnav Sheppard MD
--- NOTE | 2021-03-22 18:31 | EKG ---
[facility] [address] [place] [address] Test Date: 2021-03-22 Test Time: 11:35:45 Pat Name: JOSE MERCADO Department: Room: [facility] Gender: M Health Care Coordinator: : 1950 Requested By: BRAULIO MENEZES Order Number: [id number] Reading MD: Arnav Sheppard MD Measurements Intervals [place] Rate: 149 P: NE: QRS: -80 QRSD: 124 T: 87 QT: 310 QTc: 492 Interpretive Statements Atrial fibrillation with rapid ventricular response NON-SPECIFIC ST/T CHANGES Electronically Signed On 03-23-2021 17:40:46 CDT by Arnav Sheppard MD
[2021-03-22 19:00] VITALS: BP 133/70
--- NOTE | 2021-03-22 20:16 | RAD ---
Right lower extremity arterial duplex Doppler examination with spectral analysis HISTORY: Swelling Sonographic examination right lower extremity performed and multiple static images were obtained. Blanquita david color Doppler was applied as well as arterial waveform spectral analysis. There is normal triphasic waveform above the knee and there is biphasic to monophasic below the knee. There is increased velocity within the posterior tibial artery distally with a peak systolic velocit y of 218 cm second. IMPRESSION: 1. Biphasic to monophasic flow below the knee. 2. 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 Electronically signed by: Kadeem Anthony III, MD (03/22/2021 8:13 PM) [facility]
[2021-03-22] MEDS: SENNOSIDES/DOCUSATE 8.6/50MG TABLET. PO SCH (21:00)
[2021-03-22] MEDS: HEPARIN for SUB-Q USE 5,000 UNIT/ML VIAL. SQ SCH (21:14)
[2021-03-22] MEDS: BRIMONIDINE 0.2% OPHTH SOLUTION 5ML BOTTLE. OD SCH (21:14)
[2021-03-22] MEDS: TIMOLOL 0.25% OPHTH SOLUTION 5ML BOTTLE. OU SCH (21:14)
[2021-03-22] MEDS: ATORVASTATIN CALCIUM 20 MG TABLET PO SCH (21:14)
[2021-03-22] MEDS: LATANOPROST 0.005% OPHTH SOLUTION 2.5ML BOTTLE. OU SCH (21:15)
[2021-03-22 22:40] VITALS: BP 124/65
[2021-03-23 02:55] LABS: BILIRUBIN,URINE NEGATIVE (NEG); CLARITY,URINE CLEAR; COLOR,URINE YELLOW; NITRITE,URINE NEGATIVE (NEG); PROTEIN,URINE NEGATIVE (NEG-TRACE)
[2021-03-23 03:07] VITALS: BP 120/59
[2021-03-23 03:12] LABS: BACTERIA,URINE FEW /HPF (0-FEW); RBC,URINE 0 /HPF (0-2)
[2021-03-23 06:02] VITALS: BP 136/62
[2021-03-23] MEDS: HEPARIN for SUB-Q USE 5,000 UNIT/ML VIAL. SQ SCH ×3 (06:32→21:36)
[2021-03-23] MEDS ORDERED: FLU VACC QUAD 21-22 (6MOS+) PF 0.5 ML SYRINGE. VAX IM ONE (09:00)
--- NOTE | 2021-03-23 09:10 | PDOC ---
[employer] PROGRESS NOTE Date of Service DOS: DATE: 03/23/21 TIME: 08:57 Chief Complaint Chief Complaint Atrial fibrillation with RVR BL extremity chronic wounds and ulcers Lymphedema Inability to care for self ANTWAN (unknown baseline) Severe malnutrition History of Present Illness History of Present Illness Patient seen and examined at bedside Pt comfortably resting at time of exam, NAD Mary. Fib noted on tele, rate well controlled (70-80s) Charts Reviewed Case discussed with RN and sr. social media & mobile manager Vitals/I&O Vitals/I&O: Vital Signs Date Time Temp Pulse Resp B/P (MAP) Pulse Ox O2 Delivery O2 Flow Rate FiO2 03/23/21 06:02 98.0 74 19 136/62 (86) 99 Room Air 98.0 I & O 03/22/21 03/22/21 03/23/21 15:00 23:00 07:00 Intake Total 500 ml 300 ml 300 ml Output Total 300 ml 1100 ml Balance 500 ml 0 ml -800 ml Physical Exam Physical Exam: GEN: Resting in bed, comfortable HEENT: Normal cephalic, atraumatic, external auditory canals are patent EYES: Extraocular muscles are intact, pupil are equally round and reactive to light and accommodation MUSCULOSKELETAL: Very limited range of motion ENDOCRINE: No thyromegaly was palpated LYMPHATICS: No cervical chain or axillary nodes were noted HEMATOPOIETIC: No bruising NECK: Supple, no JVD, no thyromegaly was noted LUNGS: Clear to auscultation in all lung costello without rhonchi or wheezing HEART: Atrial paced rhythm ABDOMEN: Soft, nontender. Positive bowel sounds, no organomegaly, normal bowel sounds EXTREMITIES: Bilateral lower extremity lymphedema, changes of chronic venous stasis, wounds throughout lower extremities NEUROLOGIC: Normal speech and tone. A&O x 3, moves all extremities, no obvious focal deficits PSYCHIATRIC: Normal affect, normal mood. Stable SKIN: Multiple skin wounds in lower extremities very edematous General: Alert, Oriented X3, Cooperative, No acute distress Heart: Normal S1, Normal S2, Other (distant heart sounds, Irregularly irregular) Lungs: Clear Abdomen: Soft, No tenderness, Other (obese) Extremities: No cyanosis, Other (LE lymphedema weeping) Skin: Other (LE venous dermaititis, chronic lyphemdema with right foot erythema) Labs Labs: Laboratory Tests Test 03/22/21 12:25 03/22/21 12:30 03/22/21 13:20 03/22/21 14:50 White Blood Count 8.5 x10^3/uL (4.0-11.0) Red Blood Count 4.48 x10^6/uL (4.30-5.70) Hemoglobin 12.8 g/dL (13.0-17.5) Hematocrit 38.4 % (39.0-53.0) Mean Corpuscular Volume 86 fL (79-100) Mean Corpuscular Hemoglobin 29 pg (25-35) Mean Corpuscular Hemoglobin Concent 33 g/dL (31-37) Red Cell Distribution Width 15.4 % (11.5-14.5) Platelet Count 339 x10^3/uL (140-400) Neutrophils (%) (Auto) 77 % (31-73) Lymphocytes (%) (Auto) 11 % (24-48) Monocytes (%) (Auto) 8 % (0-9) Eosinophils (%) (Auto) 3 % (0-3) Basophils (%) (Auto) 0 % (0-3) Neutrophils # (Auto) 6.6 x10^3/uL (1.8-7.7) Lymphocytes # (Auto) 1.0 x10^3/uL (1.0-4.8) Monocytes # (Auto) 0.7 x10^3/uL (0.0-1.1) Eosinophils # (Auto) 0.2 x10^3/uL (0.0-0.7) Basophils # (Auto) 0.0 x10^3/uL (0.0-0.2) SARS-CoV-2 Antigen (Rapid) Negative (NEGATIVE) Sodium Level 140 mmol/L (136-145) Potassium Level 4.4 mmol/L (3.5-5.1) Chloride Level 105 mmol/L (98-107) Carbon Dioxide Level 28 mmol/L (21-32) Anion Gap 7 (6-14) Blood Urea Nitrogen 12 mg/dL (8-26) Creatinine 1.6 mg/dL (0.7-1.3) Estimated GFR (Cockcroft-Gault) 42.7 BUN/Creatinine Ratio 8 (6-20) Glucose Level 107 mg/dL (70-99) Lactic Acid Level 0.8 mmol/L (0.4-2.0) Calcium Level 8.6 mg/dL (8.5-10.1) Magnesium Level 2.3 mg/dL (1.8-2.4) Total Bilirubin 0.5 mg/dL (0.2-1.0) Aspartate Amino Transf (AST/SGOT) 14 U/L (15-37) Alanine Aminotransferase (ALT/SGPT) 14 U/L (16-63) Alkaline Phosphatase 88 U/L (46-116) Troponin I Quantitative 0.058 ng/mL (0.000-0.055) 0.103 ng/mL (0.000-0.055) YC-Awg-V-Type Natriuretic Peptide 1108 pg/mL (0-124) Total Protein 7.4 g/dL (6.4-8.2) Albumin 2.5 g/dL (3.4-5.0) Albumin/Globulin Ratio 0.5 (1.0-1.7) Thyroid Stimulating Hormone (TSH) 5.257 uIU/mL (0.358-3.74) Test 03/22/21 18:17 03/23/21 02:40 Troponin I Quantitative 0.315 ng/mL (0.000-0.055) Urine Collection Type Unknown Urine Color Yellow Urine Clarity Clear Urine pH 7.0 (<5.0-8.0) Urine Specific [place] 1.010 (1.000-1.030) Urine Protein Negative mg/dL (NEG-TRACE) Urine Glucose (UA) Negative mg/dL (NEG) Urine Ketones (Stick) Negative mg/dL (NEG) Urine Blood Negative (NEG) Urine Nitrite Negative (NEG) Urine Bilirubin Negative (NEG) Urine Urobilinogen Dipstick 1.0 mg/dL (0.2 mg/dL) Urine Leukocyte Esterase Small (NEG) Urine RBC 0 /HPF (0-2) Urine WBC 5-10 /HPF (0-4) Urine Squamous Epithelial Cells Few /LPF Urine Bacteria Few /HPF (0-FEW) Urine Mucus Slight /LPF Review of Systems Review of Systems: ROS negative Assessment and Plan Assessmemt and Plan Problems Medical Problems: (1) Atrial fibrillation with rapid ventricular response Status: Acute (2) Chest pain Status: Acute (3) Elevated troponin I level Status: Acute (4) Lymphedema of both lower extremities Status: Acute (5) Self-care deficit Status: Acute - Continue monitoring on Telemetry - Cardiology input appreciated - Continue negative chronotropic agents - Serial enzymes - Serial EKGs - Wound care consulted - Vascular surgery and orthopedics consulted in emergency room - PT/OT after subspecialists see pt - Lymphedema consulted - Restarted home meds as indicated - DVT prophylaxis - Cardiac diet - Full Code - Disposition: Pending subspecialist input Comment Review of Relevant I have reviewed the following items marlene (where applicable) has been applied. Medications: Current Medications Medications (Trade) Dose Ordered Sig/Placido Route PRN Reason Start Time Stop Time Status Last Admin Dose Admin Aspirin (Aspirin Chewable) 324 mg 1X ONCE PO 03/22/21 12:30 03/22/21 12:31 DC 03/22/21 12:43 Diltiazem HCl (Cardizem Iv Push) 10 mg 1X ONCE IVP 03/22/21 12:15 03/22/21 12:17 DC 03/22/21 12:44 Sodium Chloride 500 ml @ 500 mls/hr 1X ONCE IV 03/22/21 14:00 03/22/21 14:59 DC 03/22/21 13:56 Enoxaparin Sodium (Lovenox 100mg Syringe) 100 mg 1X ONCE SQ 03/22/21 14:15 03/22/21 14:18 DC 03/22/21 15:21 Heparin Sodium (Porcine) (Heparin Sodium) 5,000 unit Q8HRS SQ 03/22/21 22:00 03/23/21 06:32 Atorvastatin Calcium (Lipitor) 20 mg QHS PO 03/22/21 21:00 03/22/21 21:14 Latanoprost (Xalatan) 1 drop QHS OU 03/22/21 21:00 03/22/21 21:15 Brimonidine Tartrate (Alphagan) 1 drop BID OD 03/22/21 21:00 03/22/21 21:14 Timolol Maleate (Timoptic 0.25% [facility] [facility]) 1 drop BID OU 03/22/21 21:00 03/22/21 21:14 Digoxin (Lanoxin) 250 mcg 1X ONCE IV 03/22/21 16:30 03/22/21 16:31 DC 03/22/21 17:29 Justifications for Admission Other Justification TEE ORTIZ III DO Mar 23, 2021 09:10
[2021-03-23] MEDS: SENNOSIDES/DOCUSATE 8.6/50MG TABLET. PO SCH ×2 (10:04→21:27)
[2021-03-23] MEDS: BRIMONIDINE 0.2% OPHTH SOLUTION 5ML BOTTLE. OD SCH ×2 (10:04→21:26)
[2021-03-23] MEDS: ASPIRIN ENTERIC COATED 81 MG TABLET.DR. PO SCH (10:04)
[2021-03-23] MEDS: TIMOLOL 0.25% OPHTH SOLUTION 5ML BOTTLE. OU SCH ×2 (10:04→21:26)
[2021-03-23 10:59] VITALS: BP 141/59
--- NOTE | 2021-03-23 12:37 | PDOC ---
OLGA AGUIRRE HYPERTRICHOLOGIST 03/23/21 1237: CARDIO Progress Notes Date and Time Date of Service 03/23/2021 Time of Evaluation 1215 Subjective Subjective: No Chest Pain, No shortness of breath, No Palpitations Vitals Vitals Vital Signs Date Time Temp Pulse Resp B/P (MAP) Pulse Ox O2 Delivery O2 Flow Rate FiO2 03/23/21 10:59 99.9 72 18 141/59 (86) 97 Room Air 99.9 Weight Weight [ ] Input and Output Intake and Output Intake and Output 03/23/21 07:00 Intake Total 1100 ml Output Total 1400 ml Balance -300 ml Intake Oral 600 ml IV Total 500 ml Output Urine Total 1400 ml Laboratory Labs Laboratory Tests Test 03/22/21 12:25 03/22/21 12:30 03/22/21 13:20 03/22/21 14:50 White Blood Count 8.5 x10^3/uL (4.0-11.0) Red Blood Count 4.48 x10^6/uL (4.30-5.70) Hemoglobin 12.8 g/dL (13.0-17.5) Hematocrit 38.4 % (39.0-53.0) Mean Corpuscular Volume 86 fL (79-100) Mean Corpuscular Hemoglobin 29 pg (25-35) Mean Corpuscular Hemoglobin Concent 33 g/dL (31-37) Red Cell Distribution Width 15.4 % (11.5-14.5) Platelet Count 339 x10^3/uL (140-400) Neutrophils (%) (Auto) 77 % (31-73) Lymphocytes (%) (Auto) 11 % (24-48) Monocytes (%) (Auto) 8 % (0-9) Eosinophils (%) (Auto) 3 % (0-3) Basophils (%) (Auto) 0 % (0-3) Neutrophils # (Auto) 6.6 x10^3/uL (1.8-7.7) Lymphocytes # (Auto) 1.0 x10^3/uL (1.0-4.8) Monocytes # (Auto) 0.7 x10^3/uL (0.0-1.1) Eosinophils # (Auto) 0.2 x10^3/uL (0.0-0.7) Basophils # (Auto) 0.0 x10^3/uL (0.0-0.2) SARS-CoV-2 RNA (ELIAZAR) Negative (Negative) SARS-CoV-2 Antigen (Rapid) Negative (NEGATIVE) Sodium Level 140 mmol/L (136-145) Potassium Level 4.4 mmol/L (3.5-5.1) Chloride Level 105 mmol/L (98-107) Carbon Dioxide Level 28 mmol/L (21-32) Anion Gap 7 (6-14) Blood Urea Nitrogen 12 mg/dL (8-26) Creatinine 1.6 mg/dL (0.7-1.3) Estimated GFR (Cockcroft-Gault) 42.7 BUN/Creatinine Ratio 8 (6-20) Glucose Level 107 mg/dL (70-99) Lactic Acid Level 0.8 mmol/L (0.4-2.0) Calcium Level 8.6 mg/dL (8.5-10.1) Magnesium Level 2.3 mg/dL (1.8-2.4) Total Bilirubin 0.5 mg/dL (0.2-1.0) Aspartate Amino Transf (AST/SGOT) 14 U/L (15-37) Alanine Aminotransferase (ALT/SGPT) 14 U/L (16-63) Alkaline Phosphatase 88 U/L (46-116) Troponin I Quantitative 0.058 ng/mL (0.000-0.055) 0.103 ng/mL (0.000-0.055) LP-Mcl-J-Type Natriuretic Peptide 1108 pg/mL (0-124) Total Protein 7.4 g/dL (6.4-8.2) Albumin 2.5 g/dL (3.4-5.0) Albumin/Globulin Ratio 0.5 (1.0-1.7) Thyroid Stimulating Hormone (TSH) 5.257 uIU/mL (0.358-3.74) Test 03/22/21 18:17 03/23/21 02:40 Troponin I Quantitative 0.315 ng/mL (0.000-0.055) Urine Collection Type Unknown Urine Color Yellow Urine Clarity Clear Urine pH 7.0 (<5.0-8.0) Urine Specific [place] 1.010 (1.000-1.030) Urine Protein Negative mg/dL (NEG-TRACE) Urine Glucose (UA) Negative mg/dL (NEG) Urine Ketones (Stick) Negative mg/dL (NEG) Urine Blood Negative (NEG) Urine Nitrite Negative (NEG) Urine Bilirubin Negative (NEG) Urine Urobilinogen Dipstick 1.0 mg/dL (0.2 mg/dL) Urine Leukocyte Esterase Small (NEG) Urine RBC 0 /HPF (0-2) Urine WBC 5-10 /HPF (0-4) Urine Squamous Epithelial Cells Few /LPF Urine Bacteria Few /HPF (0-FEW) Urine Mucus Slight /LPF Physical Exam HEENT: Neck Supple W Full Motion Chest: Symmetric LUNGS: Clear to Auscultation Heart: RRR (SR with intermittent atrial pacing) Abdomen: Soft N/T, Other (obese) Extremities: Other (chronic lymphedema) Neurology: alert, oriented, follow commands Assessment Assessment 1. AFIB RVR; Maintaining SR 2. Chest pain: due to palpitations 3. Diastolic CHF: compensated. Recent TTE 06/2020 reviewed 4. SSS with PPM in situ: biotronik. presently atrial paced with chronic LBBB. Interrogation revealed RVR for 5 hrs max rate at 156 yesterday otherwise 0 AFIB burden. normal function V paced 0% A paced 78% with 6 yrs battery life. Note pt has refused remote monitoring so he does not have a transmitter. 5. CAD: no past intervention, clinically stable 6. CKD3 7. HTN: controlled 8. HLP 9. Severe noncompliance 10. Mild troponin elevation: 0.1 suspect demand mediated likely due to RVR 11. Chronic lymphedema with likely superimposed cellulitis.plantar wound 12. Debility/poor self care 13. RLE PAD: Approximately 50 percent stenosis of the distal right posterior tibial artery. Recommendations 1. ASA/statin. 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 Start metoprolol 3. Consult ID 4. Discussed compliance. SS consult 5. Supportive care Justicifation of Admission Dx: Justifications for Admission: Justification of Admission Dx: No MATY DIAZ MD 03/23/21 9440: CARDIO Progress Notes Plan Plan Patient seen and examined. Agree with above nurse practitioner note. Overall he has chronic lymphedema, venous stasis and systolic as well as diastolic heart failure. Continue diuresis as tolerated. He needs psychiatric social worker support and likely needs to be placed in a rehab facility. No indication for intervention of the arterial system in the right lower extremity. Continue compression therapy and wound care. OLGA AGUIRRE APRN Mar 23, 2021 12:37 MATY DIAZ MD Mar 23, 2021 18:50
[2021-03-23] MEDS ORDERED: METOPROLOL TART IMMED RELEASE 25 MG TABLET. PO ONE (12:45)
--- NOTE | 2021-03-23 14:49 | NUR ---
SS following for discharge planning. SS reviewed pt chart and discussed with pt RN. Pt is from home and is currently on room air. COVID19 negative. Cardiology and wound care consulted. SS will continue to follow for discharge planning.
--- NOTE | 2021-03-23 14:55 | RAD ---
XR FOOT_RIGHT 2 VIEWS Clinical indications: Reason: WOUND INFECTIONS / Spl. Instructions: / History: Findings: There is diffuse soft tissue swelling of the right foot especially along the dorsal aspect . This is consistent with cellulitis. There is a soft tissue defect of the lateral plantar aspect of the right foot at the level of the fifth metatarsal phalangeal joint. There is erosion of the distal plantar aspect of the fifth metatarsal bone. This is consistent with osteomyelitis. No acute fracture or dislocation is seen. Plantar and posterior spurs of the calcaneus are seen. Mild primary degenera tive osteoarthritis of the first metatarsal phalangeal joint is seen. IMPRESSION: Osteomyelitis of the distal fifth metatarsal bone with associated soft tissue defect of t he lateral plantar aspect of the right foot. Electronically signed by: Gabriele Andrade MD (03/23/2021 2:51 PM) [id number]
[2021-03-23] MEDS ORDERED: PIP/TAZO PER PHARMACY MC PRN (15:45)
[2021-03-23] MEDS ORDERED: VANCOMYCIN 1.5 GM in IV NORMAL SALINE 500ML BAG 500 ML IV SCH (15:45)
[2021-03-23 15:54] VITALS: BP 137/62
[2021-03-23] MEDS: PIPERACILLIN/TAZOBACTAM 3.375 GM in IV NORMAL SALINE 50ML 50 ML IV SCH (16:20)
[2021-03-23] MEDS ORDERED: VANCOMYCIN 2 GM in IV NORMAL SALINE 500ML BAG 500 ML IV ONE (17:00)
--- NOTE | 2021-03-23 17:22 | PDOC2 ---
CONSULT Date of Consult Date of Consult DATE: 03/23/21 TIME: 15:55 Reason for Consult Reason for Consult: R Foot ulcer Referring Physician Referring Physician: Dr. Lucas Identification/Chief Complaint Chief Complaint Chest pain Source Source: Patient History of Present Illness Reason for Visit: Patient was admitted for chest pain. Upon admission, patient was also found to have right foot ulcer which is the reason for the consult. At bedside, patient is fairly negligent about the right foot ulcer. He does not know how long it has been there or what started it. Patient denies any drainage or self-care of the wound at home. Patient relates pain to the right forefoot with pressure and walking. At rest, patient denies any pain to the right lower extremity. At baseline, he has severe bilateral lower extremity swelling. He denies any previous intervention for edema control. Otherwise, he denies any constitutional symptoms. Socially, patient lives with brother at home. He is minimally ambulatory due to the bilateral lower extremity swelling and right foot pain. Upon ED admission, patient was found afebrile without leukocytosis. Antibiotics were held for possible wound culture. Past Medical History Cardiovascular: CAD, CHF, HTN, Hyperlipidemia, Other Pulmonary: No pertinent hx CENTRAL NERVOUS SYSTEM: Other GI: GERD Heme/Onc: Anemia NOS Hepatobiliary: No pertinent hx Psych: No pertinent hx Musculoskeletal: Osteoarthritis Rheumatologic: No pertinent hx Infectious disease: No pertinent hx Renal/: Chronic renal insuff, Benign prostatic enlarg. Endocrine: No pertinent hx Past Surgical History Past Surgical History: Other Family History Family History: Heart Disease Social History No ALCOHOL: none Drugs: None Lives: with Family Current Problem List Problem List Problems Medical Problems: (1) Atrial fibrillation with rapid ventricular response Status: Acute (2) Chest pain Status: Acute (3) Elevated troponin I level Status: Acute (4) Lymphedema of both lower extremities Status: Acute (5) Self-care deficit Status: Acute Current Medications Current Medications Current Medications Aspirin (Aspirin Chewable) 324 mg 1X ONCE PO Last administered on 03/22/21at 12:43; Start 03/22/21 at 12:30; Stop 03/22/21 at 12:31; Status DC Diltiazem HCl (Cardizem Iv Push) 10 mg 1X ONCE IVP Last administered on at 12:44; Start 03/22/21 at 12:15; Stop 03/22/21 at 12:17; Status DC Diltiazem HCl 125 mg/Sodium Chloride 125 ml @ 5 mls/hr CONT PRN IV SEE PROTOCOL; Start 03/22/21 at 13:22; Stop 03/22/21 at 13:45; Status DC Amiodarone HCl 450 mg/Dextrose 259 ml @ 0 mls/hr CONT PRN IV SEE I/O RECORD; Start 03/22/21 at 13:45; Stop 03/23/21 at 13:45; Status DC Sodium Chloride 500 ml @ 500 mls/hr 1X ONCE IV Last administered on 03/22/21at 13:56; Start 03/22/21 at 14:00; Stop 03/22/21 at 14:59; Status DC Enoxaparin Sodium (Lovenox 100mg Syringe) 100 mg 1X ONCE SQ Last administered on 03/22/21at 15:21; Start 03/22/21 at 14:15; Stop 03/22/21 at 14:18; Status DC Ondansetron HCl (Zofran) 4 mg PRN Q8HRS PRN IVP NAUSEA/VOMITING; Start 03/22/21 at 14:30; Stop 03/23/21 at 14:29; Status DC Ondansetron HCl (Zofran) 4 mg PRN Q6HRS PRN IVP NAUSEA/VOMITING; Start 03/22/21 at 16:00 Calcium Carbonate/ Glycine (Tums) 500 mg PRN Q3HRS PRN PO UPSET STOMACH; Start 03/22/21 at 16:00 Zolpidem Tartrate (Ambien) 5 mg PRN QHS PRN PO INSOMNIA, MAY REPEAT IN 1HR; Start 03/22/21 at 16:00 Info (Non-Icu Electrolyte Protocol) 1 ea PRN DAILY PRN MC SEE COMMENTS; Start 03/22/21 at 16:00 Oxycodone HCl (Roxicodone) 5 mg PRN Q3HRS PRN PO BREAKTHROUGH PAIN; Start 03/22/21 at 16:00 Oxycodone/ Acetaminophen (Percocet 5/325) 1 tab PRN Q4HRS PRN PO MILD PAIN, 1ST CHOICE; Start 03/22/21 at 16:00 Oxycodone/ Acetaminophen (Percocet 5/325) 2 tab PRN Q4HRS PRN PO MODERATE PAIN, SEVERE PAIN; Start 03/22/21 at 16:00 Acetaminophen (Tylenol) 650 mg PRN Q6HRS PRN PO Headaches, Temp > 101.5F; Start 03/22/21 at 16:00 Senna/Docusate Sodium (Senna Plus) 1 tab BID PO Last administered on 03/23/21at 10:04; Start 03/22/21 at 21:00 Heparin Sodium (Porcine) (Heparin Sodium) 5,000 unit Q8HRS SQ Last administered on 03/23/21at 06:32; Start 03/22/21 at 22:00 Aspirin (Ecotrin) 81 mg DAILY PO Last administered on 03/23/21at 10:04; Start 03/23/21 at 09:00 Atorvastatin Calcium (Lipitor) 20 mg QHS PO Last administered on 03/22/21at 21:14; Start 03/22/21 at 21:00 Latanoprost (Xalatan) 1 drop QHS OU Last administered on 03/22/21at 21:15; Start 03/22/21 at 21:00 Brimonidine Tartrate (Alphagan) 1 drop BID OD Last administered on 03/23/21at 10:04; Start 03/22/21 at 21:00 Timolol Maleate (Timoptic 0.25% Ophth) 1 drop BID OU Last administered on 03/23/21at 10:04; Start 03/22/21 at 21:00 Digoxin (Lanoxin) 250 mcg 1X ONCE IV Last administered on 03/22/21at 17:29; Start 03/22/21 at 16:30; Stop 03/22/21 at 16:31; Status DC Influenza Virus Vaccine Quadrival (Flulaval Quad [id number] Syringe) 0.5 ml ONCE ONCE VAX IM Last administered on 03/23/21at 10:06; Start 03/23/21 at 09:00; Stop 03/23/21 at 09:01; Status DC Metoprolol Tartrate (Lopressor) 25 mg 1X ONCE PO ; Start 03/23/21 at 12:45; Stop 03/23/21 at 12:48; Status DC Metoprolol Tartrate (Lopressor) 25 mg BID PO ; Start 03/23/21 at 21:00 Active Scripts Active Atorvastatin Calcium 20 Mg Tablet 20 Mg PO QHS Reported Aspirin Ec (Aspirin) 81 Mg Tablet.dr 1 Tab PO DAILY Combigan Eye Drops (Brimonidine Tartrate/Timolol) 5 Ml Drops 5 Ml OP BID Latanoprost 2.5 Ml Drops 1 Drop EACHEYE QHS Allergies Allergies: Coded Allergies: No Known Drug Allergies (Unverified , 03/22/21) ROS Review of System CONSTITUTIONAL: No fever. No chills. No dizziness. No weakness. CARDIOVASCULAR: No chest pain. No palpitations. No lower extremity edema. RESPIRATORY: No shortness of breath, cough, pain with respiration. No hemoptysis. No dyspnea. GASTROINTESTINAL: Normal appetite. No nausea, vomiting, diarrhea. GENITOURINARY: No frequency, urgency, nocturia. No hematuria or dysuria. MUSCULOSKELETAL: Refer to HPI INTEGUMENTARY: Refer to HPI NEUROLOGIC: No numbness or tingling of the extremities. No weakness. PSYCHIATRIC: No confusion. ENDOCRINE: No fatigue. No weakness. HEMATOLOGICAL: No bleeding. No petechiae. No bruising. ALLERGIES: No asthma. No urticaria Physical Exam Physical Exam General: AOx3, pleasant without distress Bilateral lower extremity focused Vascular: -Severe nonpitting bilateral lower extremity edema to the level of distal knees, bilateral -DP palpable, PT nonpalpable, bilateral -Foot is warm to touch, bilateral Dermatology: -A full-thickness ulcer measures approximately 3 x 4 cm to the plantar fifth metatarsal head. Probe to bone, the wound base is fibrotic and necrotic with moderate purulence drainage without severe undermining, proximal tracking. Periwound is erythematous and edematous, right. -A full-thickness ulcer measures approximately 2 x 2 centimeter to the plantar fourth metatarsal head. Probe to capsule, wound base is fibrotic and granular without purulence, undermining or proximal tracking. Periwound is minimally erythematous and edematous, right -Serous blister to the plantar calcaneus. Upon debridement, there is a partial- thickness wound without any purulence, proximal tracking or deep tissue plane violation, right -Partial-thickness wound circumferentially to the right second digit at the level of MTPJ and IPJ with mild purulence without violation to exposed tendon, bone or joint -Brown the edema to bilateral lower extremity without any venous stasis ulcer to the legs Neurology: -Light touch sensation diminished to the level of the mid tib-fib Musculoskeletal: -TTP to the fourth, and fifth metatarsal head ulcers, right -TTP to plantar right calcaneus near the serous blister -TTP to the right second digit with passive IPJ and MTPJ range of motion, right -Calf is soft nontender, bilateral -No TTP to plantar arch or with passive subtalar ankle range of motion, right -Able to move digits however limited due to swelling and pain, right -Severely reduced arch height, bilateral Vitals VITALS Vital Signs Date Time Temp Pulse Resp B/P (MAP) Pulse Ox O2 Delivery O2 Flow Rate FiO2 03/23/21 10:59 99.9 72 18 141/59 (86) 97 Room Air 99.9 Labs Labs Laboratory Tests Test 03/22/21 12:25 03/22/21 12:30 03/22/21 13:20 03/22/21 14:50 White Blood Count 8.5 x10^3/uL (4.0-11.0) Red Blood Count 4.48 x10^6/uL (4.30-5.70) Hemoglobin 12.8 g/dL (13.0-17.5) Hematocrit 38.4 % (39.0-53.0) Mean Corpuscular Volume 86 fL (79-100) Mean Corpuscular Hemoglobin 29 pg (25-35) Mean Corpuscular Hemoglobin Concent 33 g/dL (31-37) Red Cell Distribution Width 15.4 % (11.5-14.5) Platelet Count 339 x10^3/uL (140-400) Neutrophils (%) (Auto) 77 % (31-73) Lymphocytes (%) (Auto) 11 % (24-48) Monocytes (%) (Auto) 8 % (0-9) Eosinophils (%) (Auto) 3 % (0-3) Basophils (%) (Auto) 0 % (0-3) Neutrophils # (Auto) 6.6 x10^3/uL (1.8-7.7) Lymphocytes # (Auto) 1.0 x10^3/uL (1.0-4.8) Monocytes # (Auto) 0.7 x10^3/uL (0.0-1.1) Eosinophils # (Auto) 0.2 x10^3/uL (0.0-0.7) Basophils # (Auto) 0.0 x10^3/uL (0.0-0.2) SARS-CoV-2 RNA (ELIAZAR) Negative (Negative) SARS-CoV-2 Antigen (Rapid) Negative (NEGATIVE) Sodium Level 140 mmol/L (136-145) Potassium Level 4.4 mmol/L (3.5-5.1) Chloride Level 105 mmol/L (98-107) Carbon Dioxide Level 28 mmol/L (21-32) Anion Gap 7 (6-14) Blood Urea Nitrogen 12 mg/dL (8-26) Creatinine 1.6 mg/dL (0.7-1.3) Estimated GFR (Cockcroft-Gault) 42.7 BUN/Creatinine Ratio 8 (6-20) Glucose Level 107 mg/dL (70-99) Lactic Acid Level 0.8 mmol/L (0.4-2.0) Calcium Level 8.6 mg/dL (8.5-10.1) Magnesium Level 2.3 mg/dL (1.8-2.4) Total Bilirubin 0.5 mg/dL (0.2-1.0) Aspartate Amino Transf (AST/SGOT) 14 U/L (15-37) Alanine Aminotransferase (ALT/SGPT) 14 U/L (16-63) Alkaline Phosphatase 88 U/L (46-116) Troponin I Quantitative 0.058 ng/mL (0.000-0.055) 0.103 ng/mL (0.000-0.055) BF-Ccj-W-Type Natriuretic Peptide 1108 pg/mL (0-124) Total Protein 7.4 g/dL (6.4-8.2) Albumin 2.5 g/dL (3.4-5.0) Albumin/Globulin Ratio 0.5 (1.0-1.7) Thyroid Stimulating Hormone (TSH) 5.257 uIU/mL (0.358-3.74) Test 03/22/21 18:17 03/23/21 02:40 Troponin I Quantitative 0.315 ng/mL (0.000-0.055) Urine Collection Type Unknown Urine Color Yellow Urine Clarity Clear Urine pH 7.0 (<5.0-8.0) Urine Specific [place] 1.010 (1.000-1.030) Urine Protein Negative mg/dL (NEG-TRACE) Urine Glucose (UA) Negative mg/dL (NEG) Urine Ketones (Stick) Negative mg/dL (NEG) Urine Blood Negative (NEG) Urine Nitrite Negative (NEG) Urine Bilirubin Negative (NEG) Urine Urobilinogen Dipstick 1.0 mg/dL (0.2 mg/dL) Urine Leukocyte Esterase Small (NEG) Urine RBC 0 /HPF (0-2) Urine WBC 5-10 /HPF (0-4) Urine Squamous Epithelial Cells Few /LPF Urine Bacteria Few /HPF (0-FEW) Urine Mucus Slight /LPF Laboratory Tests Test 03/22/21 18:17 03/23/21 02:40 Troponin I Quantitative 0.315 ng/mL (0.000-0.055) Urine Collection Type Unknown Urine Color Yellow Urine Clarity Clear Urine pH 7.0 (<5.0-8.0) Urine Specific [place] 1.010 (1.000-1.030) Urine Protein Negative mg/dL (NEG-TRACE) Urine Glucose (UA) Negative mg/dL (NEG) Urine Ketones (Stick) Negative mg/dL (NEG) Urine Blood Negative (NEG) Urine Nitrite Negative (NEG) Urine Bilirubin Negative (NEG) Urine Urobilinogen Dipstick 1.0 mg/dL (0.2 mg/dL) Urine Leukocyte Esterase Small (NEG) Urine RBC 0 /HPF (0-2) Urine WBC 5-10 /HPF (0-4) Urine Squamous Epithelial Cells Few /LPF Urine Bacteria Few /HPF (0-FEW) Urine Mucus Slight /LPF Images Images Per my view, osteolytic changes at the right fifth MTPJ. No soft tissue emphysema or foreign body noted. The fourth metatarsal head remains relatively intact without cortical interruption or osteolytic changes Assessment/Plan Assessment/Plan Right fifth MTPJ osteomyelitis, cellulitis, severe lymphedema, PAD, peripheral neuropathy -The right fifth metatarsal head wound was debrided to the periosteum layer. Deep tissue culture was collected and sent for micro -The right fourth metatarsal head wound was debrided to the capsular layer. Deep tissue culture was collected and sent for micro -The right plantar calcaneal blister was deroofed and is swabbed for culture -Initiated broad-spectrum Vanco and Zosyn IV, renally dosed per pharmacy -The wounds were packed with Betadine soaked packing strips, Betadine soaked gauze, ABD, Kerlix. -The right second digit was also painted with Betadine and gauze was placed interdigitally to avoid maceration -Given the finding of osteolytic changes to the right fifth digit and metatarsal, surgical source control is indicated. Considering the status of se alcira lymphedema, PAD, vascular surgery would be the better client insights consultant/surgeon for source control and possible vascular inflow hoahaoism. I discussed with Dr. Lucas whom would consult vascular for surgical plan. -PT/OT: Nonweightbearing to right lower extremity, upper body mobility, hamstring/quads exercises are fine -Dressing change: Twice daily as above -N.p.o. status/surgical plan per vascular -DVT prophylaxis per internal medicine -Trend WBC daily, pending deep tissue culture, blood culture finalization LESLEY PATTEN DPM Mar 23, 2021 17:22
[2021-03-23] MEDS: VANCOMYCIN PER PHARMACY MC PRN (18:50)
--- NOTE | 2021-03-23 18:50 | NUR ---
Pharmacy Vancomycin Dosing Note S:Consulted to monitor and dose vancomycin started 03/23/21. O:JOSE MERCADO is a 70 year old M with Osteomyelitis. Height: 6 feet, 0 inches Weight: 127.0 kg Dosing Weight: Actual Other Antibiotics: Zosyn 3.375g IV q6hrs LABS: Last BUN: 12 Last Creatinine: 1.6 Creatinine Clearance: 58 mL/min Last WBC: 8.5 Tmax (past 24 hours): 99.9 Microbiology: BLOOD CX (03/22): NGTD WOUND CX PENDING URINE CX PENDING I/O: 1100/1400 A: Patient requires vancomycin for osteomyelitis, goal trough 15-20 mcg/ml. His SCr is 1.6 with an eCrCl of 58 ml/min, which is likely over-estimated due to patient's weight. Will conservatively dose vancomycin due to elevated SCr: P: 1. Initiate Vancomycin 2000 mg IV x 1 dose, then 1500 mg IV q18h 2. Follow up Trough level on 03/25/21 at 0530 3. Pharmacy will continue to monitor, follow and adjust therapy as needed. BRAULIO KING [facility], 03/23/21 [id number]
[2021-03-23] MEDS ORDERED: FUROSEMIDE 40 MG/4 ML VIAL. IVP ONE (19:00)
[2021-03-23 19:41] VITALS: BP 135/59
[2021-03-23] MEDS: ATORVASTATIN CALCIUM 20 MG TABLET PO SCH (21:29)
[2021-03-23] MEDS: METOPROLOL TART IMMED RELEASE 25 MG TABLET. PO SCH (21:29)
[2021-03-23] MEDS: LATANOPROST 0.005% OPHTH SOLUTION 2.5ML BOTTLE. OU SCH (21:36)
[2021-03-23 22:29] VITALS: BP 169/81
[2021-03-24] MEDS: PIPERACILLIN/TAZOBACTAM 3.375 GM in IV NORMAL SALINE 50ML 50 ML IV SCH ×4 (00:45→18:00)
[2021-03-24 02:13] VITALS: BP 148/61
[2021-03-24] MEDS: HEPARIN for SUB-Q USE 5,000 UNIT/ML VIAL. SQ SCH ×3 (05:52→21:33)
[2021-03-24 07:30] VITALS: BP 147/86
[2021-03-24 08:05] LABS: BASO # 0.1 x10^3/uL (0.0-0.2); BASO % 1 % (0-3); EOS # 0.2 x10^3/uL (0.0-0.7); EOS % 3 % (0-3); HEMOGLOBIN 11.9 g/dL (13.0-17.5); LYMPH # 1.2 x10^3/uL (1.0-4.8); LYMPH % 14 % (24-48); MEAN CORPUSCULAR HEMOGLOBIN 28 pg (25-35); MEAN CORPUSCULAR HGB CONC 33 g/dL (31-37); MEAN CORPUSCULAR VOLUME 86 fL (79-100); MONO # 0.7 x10^3/uL (0.0-1.1); MONO % 8 % (0-9); NEUT # 6.6 x10^3/uL (1.8-7.7); NEUT % 74 % (31-73); PLATELET COUNT 270 x10^3/uL (140-400); RED BLOOD COUNT 4.17 x10^6/uL (4.30-5.70); RED CELL DISTRIBUTION WIDTH 15.5 % (11.5-14.5); WHITE BLOOD COUNT 8.9 x10^3/uL (4.0-11.0)
[2021-03-24 08:28] LABS: CALCIUM 7.9 mg/dL (8.5-10.1); CREATININE 1.5 mg/dL (0.7-1.3); POTASSIUM 3.7 mmol/L (3.5-5.1)
[2021-03-24] MEDS: VANCOMYCIN PER PHARMACY MC PRN (08:53)
[2021-03-24] MEDS: TIMOLOL 0.25% OPHTH SOLUTION 5ML BOTTLE. OU SCH ×2 (09:00→21:24)
[2021-03-24] MEDS: BRIMONIDINE 0.2% OPHTH SOLUTION 5ML BOTTLE. OD SCH ×2 (09:00→21:25)
[2021-03-24] MEDS: FUROSEMIDE 40 MG/4 ML VIAL. IVP SCH (09:33)
[2021-03-24] MEDS: ASPIRIN ENTERIC COATED 81 MG TABLET.DR. PO SCH (09:33)
[2021-03-24] MEDS: LACTOBACILLUS RHAMNOSUS GG 1 CAPSULE. PO SCH ×2 (09:33→21:20)
[2021-03-24] MEDS: SENNOSIDES/DOCUSATE 8.6/50MG TABLET. PO SCH ×2 (09:34→21:00)
[2021-03-24] MEDS: METOPROLOL TART IMMED RELEASE 25 MG TABLET. PO SCH ×2 (09:34→21:21)
[2021-03-24 11:17] VITALS: BP 155/76
[2021-03-24] MEDS ORDERED: VANCOMYCIN 1.5 GM in IV NORMAL SALINE 500ML BAG 500 ML IV SCH (12:00)
--- NOTE | 2021-03-24 12:02 | PDOC ---
[facility] PROGRESS NOTE Date of Service DOS: DATE: 03/24/21 TIME: 11:57 Chief Complaint Chief Complaint Atrial fibrillation with RVR BL extremity chronic wounds and ulcers Lymphedema Inability to care for self ANTWAN (unknown baseline) Severe malnutrition History of Present Illness History of Present Illness 03/24 Pt seen and examined No acute overnight changes A. Fib present, but rate well controlled (70-90s) Charts Reviewed DWRN and SW 03/23 Patient seen and examined at bedside Pt comfortably resting at time of exam, NAD A. Fib noted on tele, rate well controlled (70-80s) Charts Reviewed Case discussed with RN and clinical social work therapist Vitals/I&O Vitals/I&O: Vital Signs Date Time Temp Pulse Resp B/P (MAP) Pulse Ox O2 Delivery O2 Flow Rate FiO2 03/24/21 11:17 99.1 77 18 155/76 (102) 95 Room Air 99.1 I & O 03/23/21 03/23/21 03/24/21 15:00 23:00 07:00 Intake Total 360 ml 910 ml 250 ml Output Total 700 ml 2200 ml 1450 ml Balance -340 ml -1290 ml -1200 ml Physical Exam Physical Exam: GEN: Resting in bed, comfortable HEENT: Normal cephalic, atraumatic, external auditory canals are patent EYES: Extraocular muscles are intact, pupil are equally round and reactive to light and accommodation MUSCULOSKELETAL: Very limited range of motion ENDOCRINE: No thyromegaly was palpated LYMPHATICS: No cervical chain or axillary nodes were noted HEMATOPOIETIC: No bruising NECK: Supple, no JVD, no thyromegaly was noted LUNGS: Clear to auscultation in all lung costello without rhonchi or wheezing HEART: Atrial paced rhythm, Irregularly Irregular ABDOMEN: Soft, nontender. Positive bowel sounds, no organomegaly, normal bowel sounds EXTREMITIES: Bilateral lower extremity lymphedema, changes of chronic venous stasis, wounds throughout lower extremities NEUROLOGIC: Normal speech and tone. A&O x 3, moves all extremities, no obvious focal deficits PSYCHIATRIC: Normal affect, normal mood. Stable SKIN: Multiple skin wounds in lower extremities very edematous General: Alert, Oriented X3, Cooperative, No acute distress Heart: Normal S1, Normal S2, Other (distant heart sounds, Irregularly irregular) Lungs: Clear Abdomen: Soft, No tenderness, Other (obese) Extremities: No cyanosis, Other (LE lymphedema weeping) Skin: Other (LE venous dermaititis, chronic lyphemdema with right foot erythema) Labs Labs: Laboratory Tests Test 03/24/21 06:45 White Blood Count 8.9 x10^3/uL (4.0-11.0) Red Blood Count 4.17 x10^6/uL (4.30-5.70) Hemoglobin 11.9 g/dL (13.0-17.5) Hematocrit 36.0 % (39.0-53.0) Mean Corpuscular Volume 86 fL (79-100) Mean Corpuscular Hemoglobin 28 pg (25-35) Mean Corpuscular Hemoglobin Concent 33 g/dL (31-37) Red Cell Distribution Width 15.5 % (11.5-14.5) Platelet Count 270 x10^3/uL (140-400) Neutrophils (%) (Auto) 74 % (31-73) Lymphocytes (%) (Auto) 14 % (24-48) Monocytes (%) (Auto) 8 % (0-9) Eosinophils (%) (Auto) 3 % (0-3) Basophils (%) (Auto) 1 % (0-3) Neutrophils # (Auto) 6.6 x10^3/uL (1.8-7.7) Lymphocytes # (Auto) 1.2 x10^3/uL (1.0-4.8) Monocytes # (Auto) 0.7 x10^3/uL (0.0-1.1) Eosinophils # (Auto) 0.2 x10^3/uL (0.0-0.7) Basophils # (Auto) 0.1 x10^3/uL (0.0-0.2) Sodium Level 142 mmol/L (136-145) Potassium Level 3.7 mmol/L (3.5-5.1) Chloride Level 106 mmol/L (98-107) Carbon Dioxide Level 28 mmol/L (21-32) Anion Gap 8 (6-14) Blood Urea Nitrogen 15 mg/dL (8-26) Creatinine 1.5 mg/dL (0.7-1.3) Estimated GFR (Cockcroft-Gault) 46.0 Glucose Level 84 mg/dL (70-99) Calcium Level 7.9 mg/dL (8.5-10.1) Review of Systems Review of Systems: ROS negative Assessment and Plan Assessmemt and Plan Problems Medical Problems: (1) Atrial fibrillation with rapid ventricular response Status: Acute (2) Chest pain Status: Acute (3) Elevated troponin I level Status: Acute (4) Lymphedema of both lower extremities Status: Acute (5) Self-care deficit Status: Acute Atrial fibrillation with RVR BL extremity chronic wounds and ulcers Lymphedema Inability to care for self ANTWAN (unknown baseline) Severe malnutrition Plan - Continue monitoring on Telemetry - Cardiology input appreciated - Continue negative chronotropic agents - Daily ASA - Serial enzymes - Serial EKGs - Wound care consulted - Vascular surgery and orthopedics consulted in emergency room - PT/OT - Lymphedema consulted - Restarted home meds as indicated - DVT prophylaxis - Cardiac diet - Full Code - Disposition: Pending subspecialist input Comment Review of Relevant I have reviewed the following items marelne (where applicable) has been applied. Medications: Current Medications Medications (Trade) Dose Ordered Sig/Placido Route PRN Reason Start Time Stop Time Status Last Admin Dose Admin Metoprolol Tartrate (Lopressor) 25 mg 1X ONCE PO 03/23/21 12:45 03/23/21 12:48 DC 03/23/21 16:17 Metoprolol Tartrate (Lopressor) 25 mg BID PO 03/23/21 21:00 03/24/21 09:34 Piperacillin Sod/ Tazobactam Sod 3.375 gm/Sodium Chloride 50 ml @ 100 mls/hr Q6HRS IV 03/23/21 16:00 03/24/21 05:51 Vancomycin HCl (Vanco Per Pharmacy) 1 each PRN DAILY PRN MC SEE COMMENTS 03/23/21 15:45 03/24/21 08:53 Vancomycin HCl 2 gm/Sodium Chloride 500 ml @ 250 mls/hr 1X ONCE IV 03/23/21 17:00 03/23/21 18:59 DC 03/23/21 18:14 Furosemide (Lasix) 40 mg 1X ONCE IVP 03/23/21 19:00 03/23/21 19:01 DC 03/23/21 21:29 Furosemide (Lasix) 40 mg DAILY IVP 03/24/21 09:00 03/24/21 09:33 Lactobacillus Rhamnosus (Culturelle) 1 cap BID PO 03/24/21 10:00 03/24/21 09:33 Justifications for Admission Other Justification TEE ORTIZ III DO Mar 24, 2021 12:02
--- NOTE | 2021-03-24 12:21 | PDOC ---
OLGA AGUIRRE DOORS PREFITTER 03/24/21 1221: CARDIO Progress Notes Date and Time Date of Service 03/24/2021 Time of Evaluation 1200 Subjective Subjective: No Chest Pain, No shortness of breath, No Palpitations Vitals Vitals Vital Signs Date Time Temp Pulse Resp B/P (MAP) Pulse Ox O2 Delivery O2 Flow Rate FiO2 03/24/21 11:17 99.1 77 18 155/76 (102) 95 Room Air 99.1 Weight Weight [ ] Input and Output Intake and Output Intake and Output 03/24/21 07:00 Intake Total 1520 ml Output Total 4350 ml Balance -2830 ml Intake Oral 970 ml IV Total 550 ml Output Urine Total 4350 ml Laboratory Labs Laboratory Tests Test 03/24/21 06:45 White Blood Count 8.9 x10^3/uL (4.0-11.0) Red Blood Count 4.17 x10^6/uL (4.30-5.70) Hemoglobin 11.9 g/dL (13.0-17.5) Hematocrit 36.0 % (39.0-53.0) Mean Corpuscular Volume 86 fL (79-100) Mean Corpuscular Hemoglobin 28 pg (25-35) Mean Corpuscular Hemoglobin Concent 33 g/dL (31-37) Red Cell Distribution Width 15.5 % (11.5-14.5) Platelet Count 270 x10^3/uL (140-400) Neutrophils (%) (Auto) 74 % (31-73) Lymphocytes (%) (Auto) 14 % (24-48) Monocytes (%) (Auto) 8 % (0-9) Eosinophils (%) (Auto) 3 % (0-3) Basophils (%) (Auto) 1 % (0-3) Neutrophils # (Auto) 6.6 x10^3/uL (1.8-7.7) Lymphocytes # (Auto) 1.2 x10^3/uL (1.0-4.8) Monocytes # (Auto) 0.7 x10^3/uL (0.0-1.1) Eosinophils # (Auto) 0.2 x10^3/uL (0.0-0.7) Basophils # (Auto) 0.1 x10^3/uL (0.0-0.2) Sodium Level 142 mmol/L (136-145) Potassium Level 3.7 mmol/L (3.5-5.1) Chloride Level 106 mmol/L (98-107) Carbon Dioxide Level 28 mmol/L (21-32) Anion Gap 8 (6-14) Blood Urea Nitrogen 15 mg/dL (8-26) Creatinine 1.5 mg/dL (0.7-1.3) Estimated GFR (Cockcroft-Gault) 46.0 Glucose Level 84 mg/dL (70-99) Calcium Level 7.9 mg/dL (8.5-10.1) Microbiology Micro Microbiology 03/23/21 Gram Stain - Final, Resulted 03/23/21 Aerobic and Anaerobic Culture - Preliminary, Resulted 03/23/21 Urine Culture - Preliminary, Resulted 03/22/21 Blood Culture - Preliminary, Resulted NO GROWTH AFTER 1 DAY Physical Exam HEENT: Neck Supple W Full Motion Chest: Symmetric LUNGS: Clear to Auscultation Heart: RRR (SR with intermittent atrial pacing) Abdomen: Soft N/T, Other (obese) Extremities: Other (chronic lymphedema) Neurology: alert, oriented, follow commands Assessment Assessment 1. AFIB RVR; Maintaining SR 2. Chest pain: due to palpitations 3. Diastolic CHF: compensated. Recent TTE 06/2020 reviewed 4. SSS with PPM in situ: biotronik. presently atrial paced with chronic LBBB. Interrogation revealed RVR for 5 hrs max rate at 156 yesterday otherwise 0 AFIB burden. normal function V paced 0% A paced 78% with 6 yrs battery life. Note pt has refused remote monitoring so he does not have a transmitter. 5. CAD: no past intervention, clinically stable 6. CKD3 7. HTN: controlled 8. HLP 9. Severe noncompliance 10. Mild troponin elevation: 0.1 suspect demand mediated likely due to RVR 11. 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 Debility/poor self care 13. RLE PAD: Approximately 50 percent stenosis of the distal right posterior tibial artery. Recommendations 1. ASA/statin. not a candidate for superintendent container terminal anticoagulation due to severe noncompliance 2. Metoprolol. lasix therapy 3. Discussed compliance. SS consult 4. Continue antibiotic therapy 5. Supportive care Justicifation of Admission Dx: Justifications for Admission: Justification of Admission Dx: No MATY DIAZ MD 03/24/21 1835: CARDIO Progress Notes Plan Plan Patient seen and examined. Agree with above nurse practitioner note. No acute events overnight. Right lower extremity appears to be much improved. His atrial fibrillation has resolved now that he has been treated with amiodarone. Continue anticoagulation and rate and rhythm control. Supportive care for now. Outpatient ischemic evaluation. Thank you for this consultation we will follow along closely. OLGA AGUIRRE APRN Mar 24, 2021 12:21 MATY DIAZ MD Mar 24, 2021 18:35
--- NOTE | 2021-03-24 12:42 | NUR ---
SS following up with discharge planning. SS reviewed pt chart and discussed with pt RN. Pt is currently on room air. COVID19 negative. Pt on IV Vancomycin and IV Zosyn. Cardiology following. PT/OT ordered. SS will continue to follow for discharge planning.
[2021-03-24] MEDS ORDERED: AMIODARONE 150 MG in IV DEXTROSE 5% 100ML 100 ML IV ONE (13:15)
[2021-03-24] MEDS: AMIODARONE 450 MG in IV DEXTROSE 5% 250 ML IV PRN (13:48)
[2021-03-24 15:02] VITALS: BP 131/75
--- NOTE | 2021-03-24 15:55 | NUR ---
Wound/Ostomy Care Wound Type/Assessment: Wound care follow up. Patient was seen in the ER on Sunday. Patient kept hospital socks and shoes on for 6 weeks without removing them. Right plantar 5th head metatarsal with bone exposed, right plantar foot with some eschar and slough, bone is close to being exposed as well. Patient is diabetic with severe lymphedema with skin changes and swelling. Buttocks is red but blanchable, pt advised to turn q2h to avoid skin breakdown in that area, calazime applied for protection. Treatment Recommendations/Plan: Cleanse all wounds and pat dry. Right plantar foot, right plantar 5th head metatarsal: pack with 1/4 iodoform packing, then cover with abd and kerlix, change daily Right heel, right dorsal toes: paint with betadine daily and cover with abd and kerlix, change daily. Buttocks: apply calazime daily for protection All dressings applied. Education provided: pt educated on PU healing/prevention Offloading surface/device: turn q2h using purple wedge, elevate legs on pillows, pt should be non-weigh bearing to R foot for wound healing Recommended Referrals/Tests: vascular surgery for vascular assessment/debridement of right plantar wounds. Vascular order placed for consultation. Discharge Recommendations for dressings: same as above, WC team will f/u after vascular surgery assessment. Bed lowered and call light in reach.
[2021-03-24 19:02] VITALS: BP 159/78
[2021-03-24] MEDS: ATORVASTATIN CALCIUM 20 MG TABLET PO SCH (21:20)
[2021-03-24] MEDS: LATANOPROST 0.005% OPHTH SOLUTION 2.5ML BOTTLE. OU SCH (21:25)
[2021-03-24 22:53] VITALS: BP 117/67
[2021-03-25 03:17] VITALS: BP 141/76
[2021-03-25] MEDS: AMIODARONE 450 MG in IV DEXTROSE 5% 250 ML IV PRN (03:46)
[2021-03-25] MEDS: PIPERACILLIN/TAZOBACTAM 3.375 GM in IV NORMAL SALINE 50ML 50 ML IV SCH ×5 (04:30→23:12)
[2021-03-25] MEDS: HEPARIN for SUB-Q USE 5,000 UNIT/ML VIAL. SQ SCH ×3 (05:00→21:20)
[2021-03-25 05:02] LABS: BASO # 0.1 x10^3/uL (0.0-0.2); BASO % 1 % (0-3); EOS # 0.3 x10^3/uL (0.0-0.7); EOS % 4 % (0-3); HEMATOCRIT 37.8 % (39.0-53.0); HEMOGLOBIN 12.1 g/dL (13.0-17.5); LYMPH # 1.3 x10^3/uL (1.0-4.8); LYMPH % 15 % (24-48); MEAN CORPUSCULAR HEMOGLOBIN 28 pg (25-35); MEAN CORPUSCULAR HGB CONC 32 g/dL (31-37); MEAN CORPUSCULAR VOLUME 87 fL (79-100); MONO # 0.7 x10^3/uL (0.0-1.1); MONO % 8 % (0-9); NEUT # 6.5 x10^3/uL (1.8-7.7); NEUT % 72 % (31-73); PLATELET COUNT 271 x10^3/uL (140-400); RED BLOOD COUNT 4.34 x10^6/uL (4.30-5.70); RED CELL DISTRIBUTION WIDTH 15.4 % (11.5-14.5)
[2021-03-25 05:13] LABS: CREATININE 1.5 mg/dL (0.7-1.3); POTASSIUM 3.7 mmol/L (3.5-5.1)
[2021-03-25 05:23] LABS: VANC TR 10.7 mcg/mL (10.0-20.0)
[2021-03-25] MEDS ORDERED: VANCOMYCIN 1.5 GM in IV NORMAL SALINE 500ML BAG 500 ML IV SCH (07:00)
[2021-03-25 07:52] VITALS: BP 172/83
[2021-03-25] MEDS: SENNOSIDES/DOCUSATE 8.6/50MG TABLET. PO SCH ×2 (08:53→21:00)
[2021-03-25] MEDS: BRIMONIDINE 0.2% OPHTH SOLUTION 5ML BOTTLE. OD SCH ×2 (08:53→21:15)
[2021-03-25] MEDS: METOPROLOL TART IMMED RELEASE 25 MG TABLET. PO SCH ×2 (08:53→21:14)
[2021-03-25] MEDS: TIMOLOL 0.25% OPHTH SOLUTION 5ML BOTTLE. OU SCH ×2 (08:53→21:14)
[2021-03-25] MEDS: LACTOBACILLUS RHAMNOSUS GG 1 CAPSULE. PO SCH ×2 (08:53→21:13)
[2021-03-25] MEDS: ASPIRIN ENTERIC COATED 81 MG TABLET.DR. PO SCH (08:53)
[2021-03-25] MEDS ORDERED: LIDOCAINE WITH 8.4% SOD BICARB 3 ML DISP.SYRIN. ONE (10:20)
[2021-03-25] MEDS: AMIODARONE HCL 200 MG TABLET. PO SCH (10:30)
[2021-03-25] MEDS ORDERED: LIDOCAINE WITH 8.4% SOD BICARB 3 ML DISP.SYRIN. INJ ONE (10:45)
[2021-03-25 11:01] VITALS: BP 140/79
--- NOTE | 2021-03-25 11:12 | PDOC ---
OLGA AGUIRRE BURLAP MAN 03/25/21 1112: CARDIO Progress Notes Date and Time Date of Service 03/25/2021 Time of Evaluation 1050 Subjective Subjective: No Chest Pain, No shortness of breath, No Palpitations Vitals Vitals Vital Signs Date Time Temp Pulse Resp B/P (MAP) Pulse Ox O2 Delivery O2 Flow Rate FiO2 03/25/21 11:01 98.7 64 18 140/79 (99) 96 Room Air 98.7 Weight Weight [ ] Input and Output Intake and Output Intake and Output 03/25/21 07:00 Intake Total 940 ml Output Total 3375 ml Balance -2435 ml Intake Oral 940 ml Output Urine Total 3375 ml Laboratory Labs Laboratory Tests Test 03/25/21 04:30 03/25/21 04:45 White Blood Count 9.0 x10^3/uL (4.0-11.0) Red Blood Count 4.34 x10^6/uL (4.30-5.70) Hemoglobin 12.1 g/dL (13.0-17.5) Hematocrit 37.8 % (39.0-53.0) Mean Corpuscular Volume 87 fL (79-100) Mean Corpuscular Hemoglobin 28 pg (25-35) Mean Corpuscular Hemoglobin Concent 32 g/dL (31-37) Red Cell Distribution Width 15.4 % (11.5-14.5) Platelet Count 271 x10^3/uL (140-400) Neutrophils (%) (Auto) 72 % (31-73) Lymphocytes (%) (Auto) 15 % (24-48) Monocytes (%) (Auto) 8 % (0-9) Eosinophils (%) (Auto) 4 % (0-3) Basophils (%) (Auto) 1 % (0-3) Neutrophils # (Auto) 6.5 x10^3/uL (1.8-7.7) Lymphocytes # (Auto) 1.3 x10^3/uL (1.0-4.8) Monocytes # (Auto) 0.7 x10^3/uL (0.0-1.1) Eosinophils # (Auto) 0.3 x10^3/uL (0.0-0.7) Basophils # (Auto) 0.1 x10^3/uL (0.0-0.2) Sodium Level 141 mmol/L (136-145) Potassium Level 3.7 mmol/L (3.5-5.1) Chloride Level 104 mmol/L (98-107) Carbon Dioxide Level 28 mmol/L (21-32) Anion Gap 9 (6-14) Blood Urea Nitrogen 20 mg/dL (8-26) Creatinine 1.5 mg/dL (0.7-1.3) Estimated GFR (Cockcroft-Gault) 46.0 Glucose Level 80 mg/dL (70-99) Calcium Level 8.0 mg/dL (8.5-10.1) Vancomycin Level Trough 10.7 mcg/mL (10.0-20.0) Vancomycin Last Dose Date 03/24/21 Vancomycin Last Dose Time 1200 Microbiology Micro Microbiology 03/23/21 Gram Stain - Final, Resulted 03/23/21 Aerobic and Anaerobic Culture - Preliminary, Resulted 03/23/21 Antimicrobic Susceptibility - Preliminary, Resulted 03/23/21 Urine Culture - Final, Complete 03/23/21 Antimicrobic Susceptibility - Final, Complete 03/22/21 Blood Culture - Preliminary, Resulted NO GROWTH AFTER 2 DAYS Physical Exam HEENT: Neck Supple W Full Motion Chest: Symmetric LUNGS: Clear to Auscultation Heart: RRR (SR with intermittent atrial pacing) Abdomen: Soft N/T, Other (obese) Extremities: Other (chronic lymphedema) Neurology: alert, oriented, follow commands Assessment Assessment 1. AFIB RVR; Maintaining SR 2. Chest pain: due to palpitations 3. Diastolic CHF: compensated. Recent TTE 06/2020 reviewed 4. SSS with PPM in situ: biotronik. presently atrial paced with chronic LBBB. Interrogation revealed RVR for 5 hrs max rate at 156 yesterday otherwise 0 AFIB burden. normal function V paced 0% A paced 78% with 6 yrs battery life. Note pt has refused remote monitoring so he does not have a transmitter. 5. CAD: no past intervention, clinically stable 6. CKD3 7. HTN: controlled 8. HLP 9. Severe noncompliance 10. Mild troponin elevation: 0.1 suspect demand mediated likely due to RVR 11. 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 Montero 12. Debility/poor self care 13. RLE PAD: Approximately 50 percent stenosis of the distal right posterior tibial artery. no claudications. Recommendations 1. ASA/statin. not a candidate for detention anticoagulation due to severe noncompliance. Amiodarone for rhythm maintenance 2. Metoprolol. lasix therapy 3. Discussed compliance. SS consult 4. Continue antibiotic therapy. Awaiting PICC 5. Supportive care Justicifation of Admission Dx: Justifications for Admission: Justification of Admission Dx: No MATY DIAZ MD 03/25/21 1725: CARDIO Progress Notes Plan Plan The patient was seen and interviewed as well as examined at the bedside. The chart was reviewed. The case was discussed. Agree with the plan of care. Continue plans for rehab placement. His bilateral lower extremities appear to be much improved. Continue Lasix, metoprolol and aspirin. Acute on Chronic diastolic heart failure. Improved. OLGA AGUIRRE APRN Mar 25, 2021 11:12 MATY DIAZ MD Mar 25, 2021 17:25
[2021-03-25] MEDS: FUROSEMIDE 40 MG/4 ML VIAL. IVP SCH (11:14)
--- NOTE | 2021-03-25 11:32 | RAD ---
Date: Exam: Fluoroscopic and ultrasound guided peripheral central venous catheter placement. Indication: Consent: The procedure was explained in its entirety to the patient or the patients designated repres entative by a member of the treatment team, including a discussion of the risks, benefits and commonl y accepted alternatives to the procedure, as well as the expected consequences of no therapy whatsoev er. Discussion of the risks included, but was not limited to, those that are most frequent and thos e that are rare but possibly severe or life-threatening, as well as the possibility of unforeseen com plications. Discussion: A timeout procedure was performed. The patient was prepped and draped using maximum sterile techniq ue, including the use of: Current guideline approved cutaneous antisepsis, a large sterile sheet to e stablish a sterile field. Additionally the shear grinder operator wore a hat, mask, sterile gloves, a sterile gown during the procedure as well as practiced acceptable hand hygiene prior to placing the line. 1% lidoc amrita was administered for local anesthesia. Ultrasound evaluation demonstrates a patent right basilic vein. [facility] The selected vein was accessed using micropuncture technique. A guidewire was advanced centrally. The PICC line was cut to length, and advanced through a peel-away sheath such that it's tip resides at the cavoatrial junction. The peel-away sheath a sheath was removed. The catheter was s ecured in place. The catheter was found to flush and aspirate normally.. Sterile dressings were appli ed. No immediate complications were identified. Fluoroscopy time: 0.5 minutes Dose area product: 1 Gycm2 Impression: Successful placement of a right upper extremity PICC line Electronically signed by: Earle Gasca MD (03/25/2021 11:30 AM) [id number]
--- NOTE | 2021-03-25 11:36 | PDOC ---
[facility] PROGRESS NOTE Date of Service DOS: DATE: 03/25/21 TIME: 11:32 Chief Complaint Chief Complaint Atrial fibrillation with RVR BL extremity chronic wounds and ulcers Lymphedema Inability to care for self ANTWAN (unknown baseline) Severe malnutrition History of Present Illness History of Present Illness 03/25 Patient examined and seen at bedside No acute overnight events Pt in regular rhythm at time of exam Pt's LE extremities examined Discussed pt's living situation Charts reviewed Discussed with OT Discussed with RN and SW 03/24 Pt seen and examined No acute overnight changes A. Fib present, but rate well controlled (70-90s) Charts Reviewed DWRN and TRISTIAN 03/23 Patient seen and examined at bedside Pt comfortably resting at time of exam, NAD A. Fib noted on tele, rate well controlled (70-80s) Charts Reviewed Case discussed with RN and case management social worker Vitals/I&O Vitals/I&O: Vital Signs Date Time Temp Pulse Resp B/P (MAP) Pulse Ox O2 Delivery O2 Flow Rate FiO2 03/25/21 11:01 98.7 64 18 140/79 (99) 96 Room Air 98.7 I & O 03/24/21 03/24/21 03/25/21 15:00 23:00 07:00 Intake Total 600 ml 240 ml 100 ml Output Total 1650 ml 1450 ml 275 ml Balance -1050 ml -1210 ml -175 ml Physical Exam Physical Exam: GEN: Resting in bed, comfortable HEENT: Normal cephalic, atraumatic, external auditory canals are patent EYES: Extraocular muscles are intact, pupil are equally round and reactive to light and accommodation MUSCULOSKELETAL: Very limited range of motion ENDOCRINE: No thyromegaly was palpated LYMPHATICS: No cervical chain or axillary nodes were noted HEMATOPOIETIC: No bruising NECK: Supple, no JVD, no thyromegaly was noted LUNGS: Clear to auscultation in all lung costello without rhonchi or wheezing HEART: Atrial paced rhythm, Irregularly Irregular ABDOMEN: Soft, nontender. Positive bowel sounds, no organomegaly, normal bowel sounds EXTREMITIES: Bilateral lower extremity lymphedema, changes of chronic venous stasis, wounds throughout lower extremities NEUROLOGIC: Normal speech and tone. A&O x 3, moves all extremities, no obviou s focal deficits PSYCHIATRIC: Normal affect, normal mood. Stable SKIN: Multiple skin wounds in lower extremities very edematous General: Alert, Oriented X3, Cooperative, No acute distress Heart: Normal S1, Normal S2, Other (distant heart sounds, Irregularly irregular) Lungs: Clear Abdomen: Soft, No tenderness, Other (obese) Extremities: No cyanosis, Other (LE lymphedema weeping) Skin: Other (LE venous dermaititis, chronic lyphemdema with right foot erythema) Labs Labs: Laboratory Tests Test 03/25/21 04:30 03/25/21 04:45 White Blood Count 9.0 x10^3/uL (4.0-11.0) Red Blood Count 4.34 x10^6/uL (4.30-5.70) Hemoglobin 12.1 g/dL (13.0-17.5) Hematocrit 37.8 % (39.0-53.0) Mean Corpuscular Volume 87 fL (79-100) Mean Corpuscular Hemoglobin 28 pg (25-35) Mean Corpuscular Hemoglobin Concent 32 g/dL (31-37) Red Cell Distribution Width 15.4 % (11.5-14.5) Platelet Count 271 x10^3/uL (140-400) Neutrophils (%) (Auto) 72 % (31-73) Lymphocytes (%) (Auto) 15 % (24-48) Monocytes (%) (Auto) 8 % (0-9) Eosinophils (%) (Auto) 4 % (0-3) Basophils (%) (Auto) 1 % (0-3) Neutrophils # (Auto) 6.5 x10^3/uL (1.8-7.7) Lymphocytes # (Auto) 1.3 x10^3/uL (1.0-4.8) Monocytes # (Auto) 0.7 x10^3/uL (0.0-1.1) Eosinophils # (Auto) 0.3 x10^3/uL (0.0-0.7) Basophils # (Auto) 0.1 x10^3/uL (0.0-0.2) Sodium Level 141 mmol/L (136-145) Potassium Level 3.7 mmol/L (3.5-5.1) Chloride Level 104 mmol/L (98-107) Carbon Dioxide Level 28 mmol/L (21-32) Anion Gap 9 (6-14) Blood Urea Nitrogen 20 mg/dL (8-26) Creatinine 1.5 mg/dL (0.7-1.3) Estimated GFR (Cockcroft-Gault) 46.0 Glucose Level 80 mg/dL (70-99) Calcium Level 8.0 mg/dL (8.5-10.1) Vancomycin Level Trough 10.7 mcg/mL (10.0-20.0) Vancomycin Last Dose Date 03/24/21 Vancomycin Last Dose Time 1200 Review of Systems Review of Systems: ROS negative Assessment and Plan Assessmemt and Plan Problems Medical Problems: (1) Atrial fibrillation with rapid ventricular response Status: Acute (2) Chest pain Status: Acute (3) Elevated troponin I level Status: Acute (4) Lymphedema of both lower extremities Status: Acute (5) Self-care deficit Status: Acute Atrial fibrillation with RVR - resolved BL extremity chronic wounds and ulcers Lymphedema Inability to care for self ANTWAN (unknown baseline) Severe malnutrition Plan - Consider amio drip if back in A. Fib and PICC line in place - Continue monitoring on Telemetry - Cardiology input appreciated - Continue negative chronotropic agents - Daily ASA - Serial enzymes - Serial EKGs - Wound care consulted - Vascular surgery and orthopedics consulted in emergency room - PT/OT - Lymphedema consulted - Restarted home meds as indicated - DVT prophylaxis - Cardiac diet - Full Code - Disposition: Pending subspecialist input Comment Review of Relevant I have reviewed the following items marlene (where applicable) has been applied. Medications: Current Medications Medications (Trade) Dose Ordered Sig/Placido Route PRN Reason Start Time Stop Time Status Last Admin Dose Admin Vancomycin HCl 1.5 gm/Sodium Chloride 500 ml @ 250 mls/hr Q18H IV 03/24/21 12:00 03/25/21 06:16 DC 03/24/21 13:45 Amiodarone HCl 150 mg/Dextrose 103 ml @ 600 mls/hr 1X ONCE IV 03/24/21 13:15 03/25/21 09:51 DC 03/24/21 13:15 Amiodarone HCl 450 mg/Dextrose 259 ml @ 33 mls/hr CONT PRN IV SEE I/O RECORD 03/24/21 13:15 03/25/21 09:51 DC 03/25/21 03:46 Amiodarone HCl (Cordarone) 200 mg DAILY PO 03/25/21 10:00 03/25/21 10:30 Lidocaine HCl (Buffered Lidocaine 1%) 3 ml 1X ONCE INJ 03/25/21 10:45 03/25/21 10:46 DC 03/25/21 10:45 Justifications for Admission Other Justification TEE ORTIZ III DO Mar 25, 2021 11:36
[2021-03-25] MEDS: VANCOMYCIN PER PHARMACY MC PRN ×2 (11:40→12:06)
[2021-03-25] MEDS: VANCOMYCIN 1.5 GM in IV NORMAL SALINE 500ML BAG 500 ML IV SCH (11:46)
--- NOTE | 2021-03-25 11:58 | NUR ---
Pharmacy Vancomycin Dosing Note S:Consulted to monitor and dose vancomycin started 03/23/21. O:JOSE MERCADO is a 70 year old M with osteomyelitis. Height: 6 feet, 0 inches Weight: 122.1 kg Tyner Body Weight: 77.60 Adjusted Body Weight: 95.40 Dosing Weight: Actual Other Antibiotics: Zosyn 3.375g IV q6hrs LABS: Last BUN: 20 Last Creatinine: 1.5 Creatinine Clearance: 60 mL/min Last WBC: 9.0 Last Procalcitonin: - Tmax (past 24 hours): 99.5 Microbiology: BLOOD CX (03/22): NGTD WOUND CX preliminary gram negative rods and gram + cocci many; proteus mirabilis identified. URINE CX enterococcus faecalis susceptible to vanco I/O: 940/3375 Drug Levels: Last Trough level not drawn correctly: 10.7 on 03/25/21 at 0445 Last Full dose given 03/23/21 at 1814 Vancomycin Dosing: Loading Dose: 2000 mg x1 Dosing Weight: Actual Target Trough: 15-20 A: Patient lost IV access 03/24 and was unable to get 1500 mg dose on 03/24 @ 1345 per ROSE MARIE Stephens. Level drawn this AM was 10.7 and patient had not received a full dose of vancomycin in over 24 hours. For this reason will re-start maintenance dose of 1500 mg IV q 18 hours and order trough prior to the 3rd dose. P: 1. Continue vancomycin 1500 mg IV q18h 2. Follow up Trough level on 03/26/21 at 2300 3. Pharmacy will continue to monitor, follow and adjust therapy as needed. YOLANDE IRBY [facility], 03/25/21 [id number]
--- NOTE | 2021-03-25 13:01 | NUR ---
SS following up with discharge planning. SS reviewed pt chart and discussed with pt RN. Pt is currently on room air. PICC line placed today. Pt on IV Zosyn and IV Vancomycin. Vascular consulted. Wound care following. PT/OT recommended retirement unit. Pt has [employer]. SS will continue to follow for discharge planning.
[2021-03-25 15:00] VITALS: BP 138/74
--- NOTE | 2021-03-25 16:16 | PDOC2 ---
CONSULT Date of Service Date of Service DATE: 03/25/21 TIME: 15:59 Reason for Consult Reason for Consult: Right foot wounds, x-ray positive for osteomyelitis Referring Physician Referring Physician: Dr. Lucas Identification/Chief Complaint Chief Complaint Chest pain Source Source: Chart review, Patient History of Present Illness Reason for Visit: This is a pleasant 70-year-old male who was admitted to the hospital for chest pain. Patient noted to have atrial fibrillation and was started on amiodarone. Currently the patient denies any chest pain. There are no current plans for oral anticoagulation. Patient was noted during his hospitalization to have 2 small wounds on the plantar surface of his right foot overlying the fourth and fifth metatarsals. Patient states he is uncertain how he developed these wounds. Patient does have a long history of venous insufficiency and lymphedema. Upon examination the wounds appear to be clean but the more lateral wound over the fifth metatarsal is probes to bone. Patient denies any lower extremity claudication. He states he does not walk long distances. He denies any current use of compression wrap for his lower extremity swelling or any treatment for his lymphedema. Foot x-ray suggest osteomyelitis involving the fifth metatarsal. Right lower extremity arterial ultrasound suggest biphasic to monophasic blood flow below the knee. Past Medical History Cardiovascular: CAD, CHF, HTN, Hyperlipidemia, Other Pulmonary: No pertinent hx CENTRAL NERVOUS SYSTEM: Other GI: GERD Heme/Onc: Anemia NOS Hepatobiliary: No pertinent hx Psych: No pertinent hx Musculoskeletal: Osteoarthritis Rheumatologic: No pertinent hx Infectious disease: No pertinent hx Renal/: Chronic renal insuff, Benign prostatic enlarg. Endocrine: No pertinent hx Past Surgical History Past Surgical History: Other Family History Family History: Heart Disease Social History No ALCOHOL: none Drugs: None Lives: with Family Current Problem List Problem List Problems Medical Problems: (1) Atrial fibrillation with rapid ventricular response Status: Acute (2) Chest pain Status: Acute (3) Elevated troponin I level Status: Acute (4) Lymphedema of both lower extremities Status: Acute (5) Self-care deficit Status: Acute Current Medications Current Medications Current Medications Aspirin (Aspirin Chewable) 324 mg 1X ONCE PO Last administered on 03/22/21at 12:43; Start 03/22/21 at 12:30; Stop 03/22/21 at 12:31; Status DC Diltiazem HCl (Cardizem Iv Push) 10 mg 1X ONCE IVP Last administered on 03/22/21at 12:44; Start 03/22/21 at 12:15; Stop 03/22/21 at 12:17; Status DC Diltiazem HCl 125 mg/Sodium Chloride 125 ml @ 5 mls/hr CONT PRN IV SEE PROTOCOL; Start 03/22/21 at 13:22; Stop 03/22/21 at 13:45; Status DC Amiodarone HCl 450 mg/Dextrose 259 ml @ 0 mls/hr CONT PRN IV SEE I/O RECORD; Start 03/22/21 at 13:45; Stop 03/23/21 at 13:45; Status DC Sodium Chloride 500 ml @ 500 mls/hr 1X ONCE IV Last administered on 03/22/21at 13:56; Start 03/22/21 at 14:00; Stop 03/22/21 at 14:59; Status DC Enoxaparin Sodium (Lovenox 100mg Syringe) 100 mg 1X ONCE SQ Last administered on 03/22/21at 15:21; Start 03/22/21 at 14:15; Stop 03/22/21 at 14:18; Status DC Ondansetron HCl (Zofran) 4 mg PRN Q8HRS PRN IVP NAUSEA/VOMITING; Start 03/22/21 at 14:30; Stop 03/23/21 at 14:29; Status DC Ondansetron HCl (Zofran) 4 mg PRN Q6HRS PRN IVP NAUSEA/VOMITING; Start 03/22/21 at 16:00 Calcium Carbonate/ Glycine (Tums) 500 mg PRN Q3HRS PRN PO UPSET STOMACH; Start 03/22/21 at 16:00 Zolpidem Tartrate (Ambien) 5 mg PRN QHS PRN PO INSOMNIA, MAY REPEAT IN 1HR; Start 03/22/21 at 16:00 Info (Non-Icu Electrolyte Protocol) 1 ea PRN DAILY PRN MC SEE COMMENTS; Start 03/22/21 at 16:00 Oxycodone HCl (Roxicodone) 5 mg PRN Q3HRS PRN PO BREAKTHROUGH PAIN; Start 03/22/21 at 16:00 Oxycodone/ Acetaminophen (Percocet 5/325) 1 tab PRN Q4HRS PRN PO MILD PAIN, 1ST CHOICE; Start 03/22/21 at 16:00 Oxycodone/ Acetaminophen (Percocet 5/325) 2 tab PRN Q4HRS PRN PO MODERATE PAIN, SEVERE PAIN; Start 03/22/21 at 16:00 Acetaminophen (Tylenol) 650 mg PRN Q6HRS PRN PO Headaches, Temp > 101.5F; Start 03/22/21 at 16:00 Senna/Docusate Sodium (Senna Plus) 1 tab BID PO Last administered on 03/25/21at 08:53; Start 03/22/21 at 21:00 Heparin Sodium (Porcine) (Heparin Sodium) 5,000 unit Q8HRS SQ Last administered on 03/25/21at 14:32; Start 03/22/21 at 22:00 Aspirin (Ecotrin) 81 mg DAILY PO Last administered on 03/25/21at 08:53; Start 03/23/21 at 09:00 Atorvastatin Calcium (Lipitor) 20 mg QHS PO Last administered on 03/24/21at 21:20; Start 03/22/21 at 21:00 Latanoprost (Xalatan) 1 drop QHS OU Last administered on 03/24/21at 21:25; Start 03/22/21 at 21:00 Brimonidine Tartrate (Alphagan) 1 drop BID OD Last administered on 03/25/21at 08:53; Start 03/22/21 at 21:00 Timolol Maleate (Timoptic 0.25% Ophth) 1 drop BID OU Last administered on 03/25/21at 08:53; Start 03/22/21 at 21:00 Digoxin (Lanoxin) 250 mcg 1X ONCE IV Last administered on 03/22/21at 17:29; Start 03/22/21 at 16:30; Stop 03/22/21 at 16:31; Status DC Influenza Virus Vaccine Quadrival (Flulaval Quad [id number] Syringe) 0.5 ml ONCE ONCE VAX IM Last administered on 03/23/21at 10:06; Start 03/23/21 at 09:00; Stop 03/23/21 at 09:01; Status DC Metoprolol Tartrate (Lopressor) 25 mg 1X ONCE PO Last administered on 03/23/21at 16:17; Start 03/23/21 at 12:45; Stop 03/23/21 at 12:48; Status DC Metoprolol Tartrate (Lopressor) 25 mg BID PO Last administered on 03/25/21at 08:53; Start 03/23/21 at 21:00 Piperacillin Sod/ Tazobactam Sod 3.375 gm/Sodium Chloride 50 ml @ 100 mls/hr Q6HRS IV Last administered on 03/25/21at 11:14; Start 03/23/21 at 16:00 Vancomycin HCl 1.5 gm/Sodium Chloride 500 ml @ 250 mls/hr Q12H IV ; Start 03/23/21 at 15:45; Status UNV Vancomycin HCl (Vanco Per Pharmacy) 1 each PRN DAILY PRN MC SEE COMMENTS Last administered on 03/25/21at 12:06; Start 03/23/21 at 15:45 Piperacillin Sod/ Tazobactam Sod (Zosyn Per Pharmacy) 1 each PRN DAILY PRN MC SEE COMMENTS; Start 03/23/21 at 15:45 Vancomycin HCl 2 gm/Sodium Chloride 500 ml @ 250 mls/hr 1X ONCE IV Last administered on 03/23/21at 18:14; Start 03/23/21 at 17:00; Stop 03/23/21 at 18:59; Status DC Vancomycin HCl 1.5 gm/Sodium Chloride 500 ml @ 250 mls/hr Q18H IV Last administered on 03/24/21at 13:45; Start 03/24/21 at 12:00; Stop 03/25/21 at 06:16; Status DC Vancomycin HCl (Vancomycin Trough Level) 1 each 1X ONCE MC ; Start 03/25/21 at 05:30; Stop 03/25/21 at 05:31; Status DC Furosemide (Lasix) 40 mg 1X ONCE IVP Last administered on 03/23/21at 21:29; Start 03/23/21 at 19:00; Stop 03/23/21 at 19:01; Status DC Furosemide (Lasix) 40 mg DAILY IVP Last administered on 03/25/21at 11:14; Start 03/24/21 at 09:00 Lactobacillus Rhamnosus (Culturelle) 1 cap BID PO Last administered on 1at 08:53; Start 03/24/21 at 10:00 Amiodarone HCl 150 mg/Dextrose 103 ml @ 600 mls/hr 1X ONCE IV Last administered on 03/24/21at 13:15; Start 03/24/21 at 13:15; Stop 03/25/21 at 09:51; Status DC Amiodarone HCl 450 mg/Dextrose 259 ml @ 33 mls/hr CONT PRN IV SEE I/O RECORD Last administered on 03/25/21at 03:46; Start 03/24/21 at 13:15; Stop 03/25/21 at 09:51; Status DC Vancomycin HCl 1.5 gm/Sodium Chloride 500 ml @ 250 mls/hr Q12H IV ; Start 03/25/21 at 07:00; Status Cancel Amiodarone HCl (Cordarone) 200 mg DAILY PO Last administered on 03/25/21at 10:30; Start 03/25/21 at 10:00 Lidocaine HCl (Buffered Lidocaine 1%) 3 ml STK-MED ONCE .ROUTE ; Start 03/25/21 at 10:20; Stop 03/25/21 at 10:20; Status DC Lidocaine HCl (Buffered Lidocaine 1%) 3 ml 1X ONCE INJ Last administered on 03/25/21at 10:45; Start 03/25/21 at 10:45; Stop 03/25/21 at 10:46; Status DC Vancomycin HCl 1.5 gm/Sodium Chloride 500 ml @ 250 mls/hr Q18H IV Last administered on 03/25/21at 11:46; Start 03/25/21 at 11:30 Vancomycin HCl (Vancomycin Trough Level) 1 each 1X ONCE MC ; Start 03/26/21 at 23:00; Stop 03/26/21 at 23:01 Active Scripts Active Atorvastatin Calcium 20 Mg Tablet 20 Mg PO QHS Reported Aspirin Ec (Aspirin) 81 Mg Tablet.dr 1 Tab PO DAILY Combigan Eye Drops (Brimonidine Tartrate/Timolol) 5 Ml Drops 5 Ml OP BID Latanoprost 2.5 Ml Drops 1 Drop EACHEYE QHS Allergies Allergies: Coded Allergies: No Known Drug Allergies (Unverified , 03/22/21) ROS Review of System Constitutional: Denies fever or chills Eyes: Denies any visual disturbances HENT: Denies nasal congestion or sore throat Respiratory: Denies cough or shortness of breath Cardiovascular: Denies any palpitations or chest pain GI: Denies abdominal pain, nausea, vomiting, bloody stools or diarrhea : Denies dysuria or hematuria Musculoskeletal: As per HPI Integument: As per HPI Neurologic: No gross deficits Endocrine: Denies excessive thirst Psychiatric: Denies any depression or anxiety Physical Exam Physical Exam General: Alert and oriented X3 HEENT: Atraumatic, Pupils equal, round. Mucous membranes moist. Cardiac: HRR. Normal carotid pulses. Lungs: CTA, non-labored respirations. Abdomen: Obese, Soft, nontender, nondistended, no palpable masses. Extremities: 2+ bilateral femoral pulses. Doppler signal present in bilateral dorsalis pedis and posterior tibial pulses Musculoskeletal: Gait steady. Moving all extremities. Skin: Lymphedema skin changes below the knee bilaterally with hyperplasia. Moderate to severe swelling. Plantar surface of foot there is 2 small wound the more lateral wound probes to bone. Both wound beds are pink and clean. There is no surrounding erythema. No drainage. Heel ulcer clean, superficial. Neurological: Motor and sensation intact. Psychiatry: No depression or anxiety Vitals VITALS Vital Signs Date Time Temp Pulse Resp B/P (MAP) Pulse Ox O2 Delivery O2 Flow Rate FiO2 03/25/21 15:00 98.7 65 20 138/74 (95) 95 Nasal Cannula 98.7 Labs Labs Laboratory Tests Test 03/24/21 06:45 03/25/21 04:30 03/25/21 04:45 White Blood Count 8.9 x10^3/uL (4.0-11.0) 9.0 x10^3/uL (4.0-11.0) Red Blood Count 4.17 x10^6/uL (4.30-5.70) 4.34 x10^6/uL (4.30-5.70) Hemoglobin 11.9 g/dL (13.0-17.5) 12.1 g/dL (13.0-17.5) Hematocrit 36.0 % (39.0-53.0) 37.8 % (39.0-53.0) Mean Corpuscular Volume 86 fL (79-100) 87 fL (79-100) Mean Corpuscular Hemoglobin 28 pg (25-35) 28 pg (25-35) Mean Corpuscular Hemoglobin Concent 33 g/dL (31-37) 32 g/dL (31-37) Red Cell Distribution Width 15.5 % (11.5-14.5) 15.4 % (11.5-14.5) Platelet Count 270 x10^3/uL (140-400) 271 x10^3/uL (140-400) Neutrophils (%) (Auto) 74 % (31-73) 72 % (31-73) Lymphocytes (%) (Auto) 14 % (24-48) 15 % (24-48) Monocytes (%) (Auto) 8 % (0-9) 8 % (0-9) Eosinophils (%) (Auto) 3 % (0-3) 4 % (0-3) Basophils (%) (Auto) 1 % (0-3) 1 % (0-3) Neutrophils # (Auto) 6.6 x10^3/uL (1.8-7.7) 6.5 x10^3/uL (1.8-7.7) Lymphocytes # (Auto) 1.2 x10^3/uL (1.0-4.8) 1.3 x10^3/uL (1.0-4.8) Monocytes # (Auto) 0.7 x10^3/uL (0.0-1.1) 0.7 x10^3/uL (0.0-1.1) Eosinophils # (Auto) 0.2 x10^3/uL (0.0-0.7) 0.3 x10^3/uL (0.0-0.7) Basophils # (Auto) 0.1 x10^3/uL (0.0-0.2) 0.1 x10^3/uL (0.0-0.2) Sodium Level 142 mmol/L (136-145) 141 mmol/L (136-145) Potassium Level 3.7 mmol/L (3.5-5.1) 3.7 mmol/L (3.5-5.1) Chloride Level 106 mmol/L (98-107) 104 mmol/L (98-107) Carbon Dioxide Level 28 mmol/L (21-32) 28 mmol/L (21-32) Anion Gap 8 (6-14) 9 (6-14) Blood Urea Nitrogen 15 mg/dL (8-26) 20 mg/dL (8-26) Creatinine 1.5 mg/dL (0.7-1.3) 1.5 mg/dL (0.7-1.3) Estimated GFR (Cockcroft-Gault) 46.0 46.0 Glucose Level 84 mg/dL (70-99) 80 mg/dL (70-99) Calcium Level 7.9 mg/dL (8.5-10.1) 8.0 mg/dL (8.5-10.1) Vancomycin Level Trough 10.7 mcg/mL (10.0-20.0) Vancomycin Last Dose Date 03/24/21 Vancomycin Last Dose Time 1200 Laboratory Tests Test 03/25/21 04:30 03/25/21 04:45 White Blood Count 9.0 x10^3/uL (4.0-11.0) Red Blood Count 4.34 x10^6/uL (4.30-5.70) Hemoglobin 12.1 g/dL (13.0-17.5) Hematocrit 37.8 % (39.0-53.0) Mean Corpuscular Volume 87 fL (79-100) Mean Corpuscular Hemoglobin 28 pg (25-35) Mean Corpuscular Hemoglobin Concent 32 g/dL (31-37) Red Cell Distribution Width 15.4 % (11.5-14.5) Platelet Count 271 x10^3/uL (140-400) Neutrophils (%) (Auto) 72 % (31-73) Lymphocytes (%) (Auto) 15 % (24-48) Monocytes (%) (Auto) 8 % (0-9) Eosinophils (%) (Auto) 4 % (0-3) Basophils (%) (Auto) 1 % (0-3) Neutrophils # (Auto) 6.5 x10^3/uL (1.8-7.7) Lymphocytes # (Auto) 1.3 x10^3/uL (1.0-4.8) Monocytes # (Auto) 0.7 x10^3/uL (0.0-1.1) Eosinophils # (Auto) 0.3 x10^3/uL (0.0-0.7) Basophils # (Auto) 0.1 x10^3/uL (0.0-0.2) Sodium Level 141 mmol/L (136-145) Potassium Level 3.7 mmol/L (3.5-5.1) Chloride Level 104 mmol/L (98-107) Carbon Dioxide Level 28 mmol/L (21-32) Anion Gap 9 (6-14) Blood Urea Nitrogen 20 mg/dL (8-26) Creatinine 1.5 mg/dL (0.7-1.3) Estimated GFR (Cockcroft-Gault) 46.0 Glucose Level 80 mg/dL (70-99) Calcium Level 8.0 mg/dL (8.5-10.1) Vancomycin Level Trough 10.7 mcg/mL (10.0-20.0) Vancomycin Last Dose Date 03/24/21 Vancomycin Last Dose Time 1200 Images Images Xray Osteomyelitis of the distal fifth metatarsal bone with associated soft tissue defect of the lateral plantar aspect of the right foot. Lower extremity arterial ultrasound IMPRESSION: 1. Biphasic to monophasic flow below the knee. 2. 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 Assessment/Plan Assessment/Plan 70-year-old male with right plantar ulcerations overlying the fifth and fourth metatarsals. The ulceration overlying the fifth metatarsal probes to bone. Overall these wounds look clean. Patient does have diminished pulses by examination this could be somewhat distorted due to patient's body habitus and lymphedema. At this point would recommend continue local wound care and antibiotics. Dr. Harley will see the patient and review the images to determine if the patient needs any additional arterial studies. I discussed the plan of care with the patient. Attending attestation: I independently saw and evaluated the patient and agree with the findings of Deanne Jerez APRN. He tells me that he does not know how long the wound on his right foot has been present. He has a long history of lymphedema and limited mobility secondary to this. He has hypertrophy of his dermis in multiple areas and cracking of multiple calluses. He denies pain at the site. His x-ray shows possible 5th metatarsal osteomyelitis. He has diminished flow to the right foot on duplex. He would likely benefit from angiogram and possible intervention. His lymphedema will make any wound debridement or amputation difficult. Agree with antibiotics and aggressive local wound care for now. DO STU Munoz JULIE D APRN Mar 25, 2021 16:16 CECILE HARLEY DO Mar 25, 2021 21:05
--- NOTE | 2021-03-25 17:44 | PDOC ---
PROGRESS NOTES Date of Service DATE: 03/25/21 TIME: 17:41 Subjective Subjective Patient was seen at bedside. Denies constitutional symptoms. The dressing was changed the last night and has been kept clean and dry and tolerated well. Patient denies pain to the right plantar foot while resting in bed. He is curr ently on broad-spectrum IV antibiotics with tolerance. Objective Objective Vital Signs Date Time Temp Pulse Resp B/P (MAP) Pulse Ox O2 Delivery O2 Flow Rate FiO2 03/25/21 15:00 98.7 65 20 138/74 (95) 95 Nasal Cannula 98.7 Intake and Output 03/25/21 07:00 Intake Total 940 ml Output Total 3375 ml Balance -2435 ml Intake Oral 940 ml Output Urine Total 3375 ml Physical Exam Physical Exam General: AOx3, pleasant without distress Bilateral lower extremity focused Vascular: -Severe nonpitting bilateral lower extremity edema to the level of distal knee, right. However the contralateral lower extremity has improved by at least 60% since yesterday -DP palpable, PT nonpalpable, bilateral -Foot is warm to touch, bilateral Dermatology: -A full-thickness ulcer measures approximately 3 x 4 cm to the plantar fifth metatarsal head. Probe to bone, the wound base is fibrotic and necrotic with mild purulence drainage without severe undermining, proximal tracking. Periwound is erythematous and edematous, right. -A full-thickness ulcer measures approximately 2 x 2 centimeter to the plantar fourth metatarsal head. Probe to capsule, wound base is fibrotic and granular without purulence, undermining or proximal tracking. Periwound is minimally erythematous and edematous, right -Preulcerative lesion to the plantar heel, right -Partial-thickness wound circumferentially to the right second digit at the level of MTPJ and IPJ with mild purulence without violation to exposed tendon, bone or joint -Browny edema to bilateral lower extremity without any venous stasis ulcer to the legs Neurology: -Light touch sensation diminished to the level of the mid tib-fib Musculoskeletal: -TTP to the fourth, and fifth metatarsal head ulcers, right -TTP to plantar right calcaneus near the serous blister -TTP to the right second digit with passive IPJ and MTPJ range of motion, right -Calf is soft nontender, bilateral -No TTP to plantar arch or with passive subtalar ankle range of motion, right -Able to move digits however limited due to swelling and pain, right -Severely reduced arch height, bilateral Assessment Assessment Problems Medical Problems: (1) Atrial fibrillation with rapid ventricular response Status: Acute (2) Chest pain Status: Acute (3) Elevated troponin I level Status: Acute (4) Lymphedema of both lower extremities Status: Acute (5) Self-care deficit Status: Acute Plan Plan of Care Right fifth MTPJ osteomyelitis, cellulitis, severe lymphedema, PAD, peripheral neuropathy -Pending deep wound cultures -neg BCX -Continue with broad-spectrum Vanco and Zosyn IV, renally dosed per pharmacy. May de-escalate based on wound culture speciation -The wounds were packed with Betadine soaked packing strips, Betadine soaked gauze, ABD, Kerlix. -The right second digit was also painted with Betadine and gauze was placed interdigitally to avoid maceration -PT/OT: Nonweightbearing to right lower extremity, upper body mobility, hamstring/quads exercises are fine -Dressing change: Twice daily as above -DVT prophylaxis per internal medicine -Trend WBC daily, pending deep tissue culture, blood culture finalization Dispo: Vascular has evaluated patient, who recommended conservative management with IV antibiotics, wound care and possible further vascular studies. The surgical plan will be deferred to vascular surgery. Comment Review of Relevant I have reviewed the following items marlene (where applicable) has been applied. Labs Laboratory Tests Test 03/24/21 06:45 03/25/21 04:30 03/25/21 04:45 White Blood Count 8.9 x10^3/uL (4.0-11.0) 9.0 x10^3/uL (4.0-11.0) Red Blood Count 4.17 x10^6/uL (4.30-5.70) 4.34 x10^6/uL (4.30-5.70) Hemoglobin 11.9 g/dL (13.0-17.5) 12.1 g/dL (13.0-17.5) Hematocrit 36.0 % (39.0-53.0) 37.8 % (39.0-53.0) Mean Corpuscular Volume 86 fL (79-100) 87 fL (79-100) Mean Corpuscular Hemoglobin 28 pg (25-35) 28 pg (25-35) Mean Corpuscular Hemoglobin Concent 33 g/dL (31-37) 32 g/dL (31-37) Red Cell Distribution Width 15.5 % (11.5-14.5) 15.4 % (11.5-14.5) Platelet Count 270 x10^3/uL (140-400) 271 x10^3/uL (140-400) Neutrophils (%) (Auto) 74 % (31-73) 72 % (31-73) Lymphocytes (%) (Auto) 14 % (24-48) 15 % (24-48) Monocytes (%) (Auto) 8 % (0-9) 8 % (0-9) Eosinophils (%) (Auto) 3 % (0-3) 4 % (0-3) Basophils (%) (Auto) 1 % (0-3) 1 % (0-3) Neutrophils # (Auto) 6.6 x10^3/uL (1.8-7.7) 6.5 x10^3/uL (1.8-7.7) Lymphocytes # (Auto) 1.2 x10^3/uL (1.0-4.8) 1.3 x10^3/uL (1.0-4.8) Monocytes # (Auto) 0.7 x10^3/uL (0.0-1.1) 0.7 x10^3/uL (0.0-1.1) Eosinophils # (Auto) 0.2 x10^3/uL (0.0-0.7) 0.3 x10^3/uL (0.0-0.7) Basophils # (Auto) 0.1 x10^3/uL (0.0-0.2) 0.1 x10^3/uL (0.0-0.2) Sodium Level 142 mmol/L (136-145) 141 mmol/L (136-145) Potassium Level 3.7 mmol/L (3.5-5.1) 3.7 mmol/L (3.5-5.1) Chloride Level 106 mmol/L (98-107) 104 mmol/L (98-107) Carbon Dioxide Level 28 mmol/L (21-32) 28 mmol/L (21-32) Anion Gap 8 (6-14) 9 (6-14) Blood Urea Nitrogen 15 mg/dL (8-26) 20 mg/dL (8-26) Creatinine 1.5 mg/dL (0.7-1.3) 1.5 mg/dL (0.7-1.3) Estimated GFR (Cockcroft-Gault) 46.0 46.0 Glucose Level 84 mg/dL (70-99) 80 mg/dL (70-99) Calcium Level 7.9 mg/dL (8.5-10.1) 8.0 mg/dL (8.5-10.1) Vancomycin Level Trough 10.7 mcg/mL (10.0-20.0) Vancomycin Last Dose Date 03/24/21 Vancomycin Last Dose Time 1200 Laboratory Tests Test 03/25/21 04:30 03/25/21 04:45 White Blood Count 9.0 x10^3/uL (4.0-11.0) Red Blood Count 4.34 x10^6/uL (4.30-5.70) Hemoglobin 12.1 g/dL (13.0-17.5) Hematocrit 37.8 % (39.0-53.0) Mean Corpuscular Volume 87 fL (79-100) Mean Corpuscular Hemoglobin 28 pg (25-35) Mean Corpuscular Hemoglobin Concent 32 g/dL (31-37) Red Cell Distribution Width 15.4 % (11.5-14.5) Platelet Count 271 x10^3/uL (140-400) Neutrophils (%) (Auto) 72 % (31-73) Lymphocytes (%) (Auto) 15 % (24-48) Monocytes (%) (Auto) 8 % (0-9) Eosinophils (%) (Auto) 4 % (0-3) Basophils (%) (Auto) 1 % (0-3) Neutrophils # (Auto) 6.5 x10^3/uL (1.8-7.7) Lymphocytes # (Auto) 1.3 x10^3/uL (1.0-4.8) Monocytes # (Auto) 0.7 x10^3/uL (0.0-1.1) Eosinophils # (Auto) 0.3 x10^3/uL (0.0-0.7) Basophils # (Auto) 0.1 x10^3/uL (0.0-0.2) Sodium Level 141 mmol/L (136-145) Potassium Level 3.7 mmol/L (3.5-5.1) Chloride Level 104 mmol/L (98-107) Carbon Dioxide Level 28 mmol/L (21-32) Anion Gap 9 (6-14) Blood Urea Nitrogen 20 mg/dL (8-26) Creatinine 1.5 mg/dL (0.7-1.3) Estimated GFR (Cockcroft-Gault) 46.0 Glucose Level 80 mg/dL (70-99) Calcium Level 8.0 mg/dL (8.5-10.1) Vancomycin Level Trough 10.7 mcg/mL (10.0-20.0) Vancomycin Last Dose Date 03/24/21 Vancomycin Last Dose Time 1200 Microbiology 03/23/21 Gram Stain - Final, Resulted 03/23/21 Aerobic and Anaerobic Culture - Preliminary, Resulted 03/23/21 Antimicrobic Susceptibility - Preliminary, Resulted 03/23/21 Urine Culture - Final, Complete 03/23/21 Antimicrobic Susceptibility - Final, Complete 03/22/21 Blood Culture - Preliminary, Resulted NO GROWTH AFTER 3 DAYS Medications Current Medications Aspirin (Aspirin Chewable) 324 mg 1X ONCE PO Last administered on 03/22/21at 12:43; Start 03/22/21 at 12:30; Stop 03/22/21 at 12:31; Status DC Diltiazem HCl (Cardizem Iv Push) 10 mg 1X ONCE IVP Last administered on 03/22/21at 12:44; Start 03/22/21 at 12:15; Stop 03/22/21 at 12:17; Status DC Diltiazem HCl 125 mg/Sodium Chloride 125 ml @ 5 mls/hr CONT PRN IV SEE PROTOC OL; Start 03/22/21 at 13:22; Stop 03/22/21 at 13:45; Status DC Amiodarone HCl 450 mg/Dextrose 259 ml @ 0 mls/hr CONT PRN IV SEE I/O RECORD; Start 03/22/21 at 13:45; Stop 03/23/21 at 13:45; Status DC Sodium Chloride 500 ml @ 500 mls/hr 1X ONCE IV Last administered on 03/22/21at 13:56; Start 03/22/21 at 14:00; Stop 03/22/21 at 14:59; Status DC Enoxaparin Sodium (Lovenox 100mg Syringe) 100 mg 1X ONCE SQ Last administered on 03/22/21at 15:21; Start 03/22/21 at 14:15; Stop 03/22/21 at 14:18; Status DC Ondansetron HCl (Zofran) 4 mg PRN Q8HRS PRN IVP NAUSEA/VOMITING; Start 03/22/21 at 14:30; Stop 03/23/21 at 14:29; Status DC Ondansetron HCl (Zofran) 4 mg PRN Q6HRS PRN IVP NAUSEA/VOMITING; Start 03/22/21 at 16:00 Calcium Carbonate/ Glycine (Tums) 500 mg PRN Q3HRS PRN PO UPSET STOMACH; Start 03/22/21 at 16:00 Zolpidem Tartrate (Ambien) 5 mg PRN QHS PRN PO INSOMNIA, MAY REPEAT IN 1HR; Start 03/22/21 at 16:00 Info (Non-Icu Electrolyte Protocol) 1 ea PRN DAILY PRN MC SEE COMMENTS; Start 03/22/21 at 16:00 Oxycodone HCl (Roxicodone) 5 mg PRN Q3HRS PRN PO BREAKTHROUGH PAIN; Start 03/22/21 at 16:00 Oxycodone/ Acetaminophen (Percocet 5/325) 1 tab PRN Q4HRS PRN PO MILD PAIN, 1ST CHOICE; Start 03/22/21 at 16:00 Oxycodone/ Acetaminophen (Percocet 5/325) 2 tab PRN Q4HRS PRN PO MODERATE PAIN, SEVERE PAIN; Start 03/22/21 at 16:00 Acetaminophen (Tylenol) 650 mg PRN Q6HRS PRN PO Headaches, Temp > 101.5F; Start 03/22/21 at 16:00 Senna/Docusate Sodium (Senna Plus) 1 tab BID PO Last administered on 03/25/21at 08:53; Start 03/22/21 at 21:00 Heparin Sodium (Porcine) (Heparin Sodium) 5,000 unit Q8HRS SQ Last administered on 03/25/21at 14:32; Start 03/22/21 at 22:00 Aspirin (Ecotrin) 81 mg DAILY PO Last administered on 03/25/21at 08:53; Start 03/23/21 at 09:00 Atorvastatin Calcium (Lipitor) 20 mg QHS PO Last administered on 03/24/21at 21:20; Start 03/22/21 at 21:00 Latanoprost (Xalatan) 1 drop QHS OU Last administered on 03/24/21at 21:25; Start 03/22/21 at 21:00 Brimonidine Tartrate (Alphagan) 1 drop BID OD Last administered on 03/25/21at 08:53; Start 03/22/21 at 21:00 Timolol Maleate (Timoptic 0.25% Ophth) 1 drop BID OU Last administered on 03/25/21at 08:53; Start 03/22/21 at 21:00 Digoxin (Lanoxin) 250 mcg 1X ONCE IV Last administered on 03/22/21at 17:29; Start 03/22/21 at 16:30; Stop 03/22/21 at 16:31; Status DC Influenza Virus Vaccine Quadrival (Flulaval Quad [id number] Syringe) 0.5 ml ONCE ONCE VAX IM Last administered on 03/23/21at 10:06; Start 03/23/21 at 09:00; Stop 03/23/21 at 09:01; Status DC Metoprolol Tartrate (Lopressor) 25 mg 1X ONCE PO Last administered on 03/23/21at 16:17; Start 03/23/21 at 12:45; Stop 03/23/21 at 12:48; Status DC Metoprolol Tartrate (Lopressor) 25 mg BID PO Last administered on 03/25/21at 08:53; Start 03/23/21 at 21:00 Piperacillin Sod/ Tazobactam Sod 3.375 gm/Sodium Chloride 50 ml @ 100 mls/hr Q6HRS IV Last administered on 03/25/21at 11:14; Start 03/23/21 at 16:00 Vancomycin HCl 1.5 gm/Sodium Chloride 500 ml @ 250 mls/hr Q12H IV ; Start 03/23/21 at 15:45; Status UNV Vancomycin HCl (Vanco Per Pharmacy) 1 each PRN DAILY PRN MC SEE COMMENTS Last administered on 03/25/21at 12:06; Start 03/23/21 at 15:45 Piperacillin Sod/ Tazobactam Sod (Zosyn Per Pharmacy) 1 each PRN DAILY PRN MC SEE COMMENTS; Start 03/23/21 at 15:45 Vancomycin HCl 2 gm/Sodium Chloride 500 ml @ 250 mls/hr 1X ONCE IV Last administered on 03/23/21at 18:14; Start 03/23/21 at 17:00; Stop 03/23/21 at 18:59; Status DC Vancomycin HCl 1.5 gm/Sodium Chloride 500 ml @ 250 mls/hr Q18H IV Last administered on 03/24/21at 13:45; Start 03/24/21 at 12:00; Stop 03/25/21 at 06:16; Status DC Vancomycin HCl (Vancomycin Trough Level) 1 each 1X ONCE MC ; Start 03/25/21 at 05:30; Stop 03/25/21 at 05:31; Status DC Furosemide (Lasix) 40 mg 1X ONCE IVP Last administered on 03/23/21at 21:29; Start 03/23/21 at 19:00; Stop 03/23/21 at 19:01; Status DC Furosemide (Lasix) 40 mg DAILY IVP Last administered on 03/25/21at 11:14; Start 03/24/21 at 09:00 Lactobacillus Rhamnosus (Culturelle) 1 cap BID PO Last administered on 03/25/21at 08:53; Start 03/24/21 at 10:00 Amiodarone HCl 150 mg/Dextrose 103 ml @ 600 mls/hr 1X ONCE IV Last administered on 03/24/21at 13:15; Start 03/24/21 at 13:15; Stop 03/25/21 at 09:51; Status DC Amiodarone HCl 450 mg/Dextrose 259 ml @ 33 mls/hr CONT PRN IV SEE I/O RECORD Last administered on 03/25/21at 03:46; Start 03/24/21 at 13:15; Stop 03/25/21 at 09:51; Status DC Vancomycin HCl 1.5 gm/Sodium Chloride 500 ml @ 250 mls/hr Q12H IV ; Start 03/25/21 at 07:00; Status Cancel Amiodarone HCl (Cordarone) 200 mg DAILY PO Last administered on 03/25/21at 10:30; Start 03/25/21 at 10:00 Lidocaine HCl (Buffered Lidocaine 1%) 3 ml STK-MED ONCE .ROUTE ; Start 03/25/21 at 10:20; Stop 03/25/21 at 10:20; Status DC Lidocaine HCl (Buffered Lidocaine 1%) 3 ml 1X ONCE INJ Last administered on 03/25/21at 10:45; Start 03/25/21 at 10:45; Stop 03/25/21 at 10:46; Status DC Vancomycin HCl 1.5 gm/Sodium Chloride 500 ml @ 250 mls/hr Q18H IV Last administered on 03/25/21at 11:46; Start 03/25/21 at 11:30 Vancomycin HCl (Vancomycin Trough Level) 1 each 1X ONCE MC ; Start 03/26/21 at 23:00; Stop 03/26/21 at 23:01 Active Scripts Active Atorvastatin Calcium 20 Mg Tablet 20 Mg PO QHS Reported Aspirin Ec (Aspirin) 81 Mg Tablet.dr 1 Tab PO DAILY Combigan Eye Drops (Brimonidine Tartrate/Timolol) 5 Ml Drops 5 Ml OP BID Latanoprost 2.5 Ml Drops 1 Drop EACHEYE QHS Vitals/I & O Vital Sign - Last 24 Hours 03/24/21 03/24/21 03/24/21 03/24/21 19:02 20:00 21:21 22:53 Temp 98.3 97.8 98.3 97.8 Pulse 81 81 75 Resp 18 19 B/P (MAP) 159/78 (105) 159/78 117/67 (84) Pulse Ox 96 98 O2 Delivery Room Air Room Air Room Air 03/25/21 03/25/21 03/25/21 03/25/21 03:17 07:52 08:20 08:53 Temp 98.1 98.5 98.1 98.5 Pulse 73 79 79 Resp 19 19 B/P (MAP) 141/76 (97) 172/83 (112) 172/83 Pulse Ox 100 96 O2 Delivery Room Air Room Air Room Air 03/25/21 03/25/21 03/25/21 10:30 11:01 15:00 Temp 98.7 98.7 98.7 98.7 Pulse 79 64 65 Resp 18 20 B/P (MAP) 172/83 140/79 (99) 138/74 (95) Pulse Ox 96 95 O2 Delivery Room Air Nasal Cannula Intake and Output 03/24/21 03/24/21 03/25/21 15:00 23:00 07:00 Intake Total 600 ml 240 ml 100 ml Output Total 1650 ml 1450 ml 275 ml Balance -1050 ml -1210 ml -175 ml Justifications for Admission Other Justification Nutrition Consultation Dietary Evaluation: Recommendations by RD: Dietary education by RD, Add supplement feedings Comments: Cardiac jacoby bid REC mvi Expected Outcomes/Goals: to meet >75% est nutr needs improved wound status Malnutrition Findings: Body Fat Depletion (Non Severe: Mod to Severe Weight Status: Obese Fluid Accumulation (Non-Severe: Mild depletion LESLEY PATTEN DPM Mar 25, 2021 17:44
[2021-03-25 19:40] VITALS: BP 132/74
[2021-03-25] MEDS: ATORVASTATIN CALCIUM 20 MG TABLET PO SCH (21:13)
[2021-03-25] MEDS: LATANOPROST 0.005% OPHTH SOLUTION 2.5ML BOTTLE. OU SCH (21:14)
[2021-03-25 23:40] VITALS: BP 133/59
[2021-03-26 03:40] VITALS: BP 142/82
[2021-03-26] MEDS: PIPERACILLIN/TAZOBACTAM 3.375 GM in IV NORMAL SALINE 50ML 50 ML IV SCH ×4 (05:42→23:22)
[2021-03-26] MEDS: VANCOMYCIN 1.5 GM in IV NORMAL SALINE 500ML BAG 500 ML IV SCH (06:19)
[2021-03-26] MEDS: HEPARIN for SUB-Q USE 5,000 UNIT/ML VIAL. SQ SCH ×3 (06:20→21:12)
[2021-03-26 06:38] LABS: CREATININE 1.7 mg/dL (0.7-1.3); GFR 39.8; POTASSIUM 3.7 mmol/L (3.5-5.1)
[2021-03-26 07:00] VITALS: BP 135/75
[2021-03-26 07:32] LABS: BASO # 0.1 x10^3/uL (0.0-0.2); BASO % 1 % (0-3); EOS # 0.4 x10^3/uL (0.0-0.7); EOS % 4 % (0-3); HEMATOCRIT 37.1 % (39.0-53.0); HEMOGLOBIN 12.3 g/dL (13.0-17.5); LYMPH # 1.4 x10^3/uL (1.0-4.8); LYMPH % 17 % (24-48); MEAN CORPUSCULAR HEMOGLOBIN 29 pg (25-35); MEAN CORPUSCULAR HGB CONC 33 g/dL (31-37); MEAN CORPUSCULAR VOLUME 87 fL (79-100); MONO # 0.7 x10^3/uL (0.0-1.1); MONO % 8 % (0-9); NEUT # 5.5 x10^3/uL (1.8-7.7); NEUT % 69 % (31-73); PLATELET COUNT 236 x10^3/uL (140-400); RED BLOOD COUNT 4.27 x10^6/uL (4.30-5.70); RED CELL DISTRIBUTION WIDTH 15.7 % (11.5-14.5)
[2021-03-26] MEDS: SENNOSIDES/DOCUSATE 8.6/50MG TABLET. PO SCH ×2 (09:00→21:11)
[2021-03-26] MEDS: METOPROLOL TART IMMED RELEASE 25 MG TABLET. PO SCH ×2 (10:12→21:11)
[2021-03-26] MEDS: TIMOLOL 0.25% OPHTH SOLUTION 5ML BOTTLE. OU SCH ×2 (10:13→21:11)
[2021-03-26] MEDS: BRIMONIDINE 0.2% OPHTH SOLUTION 5ML BOTTLE. OD SCH ×2 (10:13→21:11)
[2021-03-26] MEDS: FUROSEMIDE 40 MG/4 ML VIAL. IVP SCH (10:13)
[2021-03-26] MEDS: LACTOBACILLUS RHAMNOSUS GG 1 CAPSULE. PO SCH ×2 (10:13→21:11)
[2021-03-26] MEDS: AMIODARONE HCL 200 MG TABLET. PO SCH (10:13)
[2021-03-26] MEDS: ASPIRIN ENTERIC COATED 81 MG TABLET.DR. PO SCH (10:13)
[2021-03-26 11:00] VITALS: BP 131/91
--- NOTE | 2021-03-26 12:47 | PDOC ---
[employer] PROGRESS NOTE Date of Service DOS: DATE: 03/26/21 TIME: 12:40 Chief Complaint Chief Complaint Atrial fibrillation with RVR BL extremity chronic wounds and ulcers Lymphedema Inability to care for self ANTWAN (unknown baseline) Severe malnutrition History of Present Illness History of Present Illness 03/26 Patient seen and examined at bedside No acute overnight events noted PICC line in place Pt is in regular rhythm Pt's lower extremities seen by WC, podiatry, and vascular surgery Vascular surgery recommending conservative management Charts reviewed [facility] and 03/25 Patient examined and seen at bedside No acute overnight events Pt in regular rhythm at time of exam Pt's LE extremities examined Discussed pt's living situation Charts reviewed Discussed with OT Discussed with RN and 03/24 Pt seen and examined No acute overnight changes A. Fib present, but rate well controlled (70-90s) Charts Reviewed [facility] and 03/23 Patient seen and examined at bedside Pt comfortably resting at time of exam, NAD A. Fib noted on tele, rate well controlled (70-80s) Charts Reviewed Case discussed with RN and mental health social worker Vitals/I&O Vitals/I&O: Vital Signs Date Time Temp Pulse Resp B/P (MAP) Pulse Ox O2 Delivery O2 Flow Rate FiO2 03/26/21 11:00 98.6 68 18 131/91 (104) 96 Room Air 98.6 I & O 03/25/21 03/25/21 03/26/21 15:00 23:00 07:00 Intake Total 420 ml 290 ml 300 ml Output Total 1100 ml 900 ml 400 ml Balance -680 ml -610 ml -100 ml Physical Exam Physical Exam: GEN: Resting in bed, comfortable HEENT: Normal cephalic, atraumatic, external auditory canals are patent EYES: Extraocular muscles are intact, pupil are equally round and reactive to light and accommodation MUSCULOSKELETAL: Very limited range of motion ENDOCRINE: No thyromegaly was palpated LYMPHATICS: No cervical chain or axillary nodes were noted HEMATOPOIETIC: No bruising NECK: Supple, no JVD, no thyromegaly was noted LUNGS: Clear to auscultation in all lung costello without rhonchi or wheezing HEART: Atrial paced rhythm, Sinus Rhythm ABDOMEN: Soft, nontender. Positive bowel sounds, no organomegaly, normal bowel sounds EXTREMITIES: Bilateral lower extremity lymphedema, changes of chronic venous stasis, wounds throughout lower extremities NEUROLOGIC: Normal speech and tone. A&O x 3, moves all extremities, no obviou s focal deficits PSYCHIATRIC: Normal affect, normal mood. Stable SKIN: Multiple skin wounds in lower extremities very edematous General: Alert, Oriented X3, Cooperative, No acute distress Heart: Regular rate, Normal S1, Normal S2, Other (distant heart sounds, Irregularly irregular) Lungs: Clear Abdomen: Soft, No tenderness, Other (obese) Extremities: No cyanosis, Other (LE lymphedema weeping) Skin: Other (LE venous dermaititis, chronic lyphemdema with right foot erythema) Labs Labs: Laboratory Tests Test 03/26/21 05:50 White Blood Count 8.0 x10^3/uL (4.0-11.0) Red Blood Count 4.27 x10^6/uL (4.30-5.70) Hemoglobin 12.3 g/dL (13.0-17.5) Hematocrit 37.1 % (39.0-53.0) Mean Corpuscular Volume 87 fL (79-100) Mean Corpuscular Hemoglobin 29 pg (25-35) Mean Corpuscular Hemoglobin Concent 33 g/dL (31-37) Red Cell Distribution Width 15.7 % (11.5-14.5) Platelet Count 236 x10^3/uL (140-400) Neutrophils (%) (Auto) 69 % (31-73) Lymphocytes (%) (Auto) 17 % (24-48) Monocytes (%) (Auto) 8 % (0-9) Eosinophils (%) (Auto) 4 % (0-3) Basophils (%) (Auto) 1 % (0-3) Neutrophils # (Auto) 5.5 x10^3/uL (1.8-7.7) Lymphocytes # (Auto) 1.4 x10^3/uL (1.0-4.8) Monocytes # (Auto) 0.7 x10^3/uL (0.0-1.1) Eosinophils # (Auto) 0.4 x10^3/uL (0.0-0.7) Basophils # (Auto) 0.1 x10^3/uL (0.0-0.2) Sodium Level 140 mmol/L (136-145) Potassium Level 3.7 mmol/L (3.5-5.1) Chloride Level 105 mmol/L (98-107) Carbon Dioxide Level 32 mmol/L (21-32) Anion Gap 3 (6-14) Blood Urea Nitrogen 22 mg/dL (8-26) Creatinine 1.7 mg/dL (0.7-1.3) Estimated GFR (Cockcroft-Gault) 39.8 Glucose Level 78 mg/dL (70-99) Calcium Level 8.0 mg/dL (8.5-10.1) Review of Systems Review of Systems: ROS negative Assessment and Plan Assessmemt and Plan Problems Medical Problems: (1) Atrial fibrillation with rapid ventricular response Status: Acute (2) Chest pain Status: Acute (3) Elevated troponin I level Status: Acute (4) Lymphedema of both lower extremities Status: Acute (5) Self-care deficit Status: Acute Atrial fibrillation with RVR - resolved BL extremity chronic wounds and ulcers Lymphedema Inability to care for self ANTWAN (unknown baseline) Severe malnutrition Plan - PICC line in place. amiodarone ordered - Continue monitoring on Telemetry - Subspecialists input appreciated - Cardiology following A. Fib (currently resolved) - Vascular surgery, podiatry, and WC following lower extremity care - Daily ASA - Serial enzymes - Serial EKGs - PT/OT - Restarted home meds as indicated - DVT prophylaxis - Cardiac diet - Full Code - Disposition: Pending subspecialist input Comment Review of Relevant I have reviewed the following items marlene (where applicable) has been applied. Justifications for Admission Other Justification TEE ORTIZ III DO Mar 26, 2021 12:47
[2021-03-26] MEDS: VANCOMYCIN PER PHARMACY MC PRN ×2 (13:23→23:40)
[2021-03-26 15:19] VITALS: BP 124/58
[2021-03-26 19:00] VITALS: BP 132/66
[2021-03-26] MEDS: LATANOPROST 0.005% OPHTH SOLUTION 2.5ML BOTTLE. OU SCH (21:10)
[2021-03-26] MEDS: ATORVASTATIN CALCIUM 20 MG TABLET PO SCH (21:11)
[2021-03-26 21:54] LABS: VANC TR 20.1 mcg/mL (10.0-20.0)
[2021-03-26 22:49] VITALS: BP 144/75
--- NOTE | 2021-03-26 23:41 | NUR ---
Pharmacy Vancomycin Dosing Note S:Consulted to monitor and dose vancomycin started 03/23/21. O:JOSE MERCADO is a 70 year old M with Osteomyelitis . Height: 6 feet, 0 inches Weight: 113.9 kg [place] Body Weight: 77.60 Adjusted Body Weight: 92.12 Dosing Weight: Actual Other Antibiotics: Zosyn 3.375g IV q6hrs LABS: Last BUN: 22 Last Creatinine: 1.7 Creatinine Clearance: 51 mL/min Last WBC: 8 Last Procalcitonin: - Tmax (past 24 hours): 99 Microbiology: BLOOD CX (03/22): NGTD WOUND CX preliminary gram negative rods and gram + cocci many, proteus mirabilis identified URINE CX enterococcus faecalis I/O: 1010/2400 Drug Levels: Last Trough level: TRUE TROUGH 17.5 on 03/26/21 at 2130 Last dose given 03/26/21 at 0619 Vancomycin Dosing: Loading Dose: 2000 mg x1 Dosing Weight: Actual Target Trough: 15-20 A: Based on: TRUE TROUGH P: 1. Continue Vancomycin 1500 mg IV q18h 2. Follow up Trough level IF NEEDED 3. Pharmacy will continue to monitor, follow and adjust therapy as needed. ISH SOUSA RPH, 03/26/21 [id number] Signed: 03/26/21 at 2342 by ISH SOUSA RPH PHA
[2021-03-27] MEDS: VANCOMYCIN 1.5 GM in IV NORMAL SALINE 500ML BAG 500 ML IV SCH ×2 (00:13→17:55)
[2021-03-27 02:57] VITALS: BP 128/74
[2021-03-27] MEDS: PIPERACILLIN/TAZOBACTAM 3.375 GM in IV NORMAL SALINE 50ML 50 ML IV SCH ×4 (05:39→23:53)
[2021-03-27] MEDS: HEPARIN for SUB-Q USE 5,000 UNIT/ML VIAL. SQ SCH ×3 (05:39→21:31)
[2021-03-27 06:17] LABS: BASO % 0 % (0-3); EOS # 0.4 x10^3/uL (0.0-0.7); EOS % 5 % (0-3); HEMATOCRIT 38.4 % (39.0-53.0); HEMOGLOBIN 12.7 g/dL (13.0-17.5); LYMPH # 1.2 x10^3/uL (1.0-4.8); LYMPH % 15 % (24-48); MEAN CORPUSCULAR HEMOGLOBIN 28 pg (25-35); MEAN CORPUSCULAR HGB CONC 33 g/dL (31-37); MEAN CORPUSCULAR VOLUME 86 fL (79-100); MONO # 0.6 x10^3/uL (0.0-1.1); MONO % 7 % (0-9); NEUT # 6.1 x10^3/uL (1.8-7.7); NEUT % 72 % (31-73); PLATELET COUNT 260 x10^3/uL (140-400); RED BLOOD COUNT 4.46 x10^6/uL (4.30-5.70); RED CELL DISTRIBUTION WIDTH 15.5 % (11.5-14.5); WHITE BLOOD COUNT 8.4 x10^3/uL (4.0-11.0)
[2021-03-27 06:25] LABS: CREATININE 1.7 mg/dL (0.7-1.3); GFR 39.8; POTASSIUM 3.5 mmol/L (3.5-5.1)
[2021-03-27 07:31] VITALS: BP 166/85
[2021-03-27] MEDS: SENNOSIDES/DOCUSATE 8.6/50MG TABLET. PO SCH ×2 (09:00→21:00)
[2021-03-27] MEDS: FUROSEMIDE 40 MG/4 ML VIAL. IVP SCH (09:30)
[2021-03-27] MEDS: BRIMONIDINE 0.2% OPHTH SOLUTION 5ML BOTTLE. OD SCH ×2 (09:30→21:26)
[2021-03-27] MEDS: ASPIRIN ENTERIC COATED 81 MG TABLET.DR. PO SCH (09:30)
[2021-03-27] MEDS: LACTOBACILLUS RHAMNOSUS GG 1 CAPSULE. PO SCH ×2 (09:30→21:16)
[2021-03-27] MEDS: TIMOLOL 0.25% OPHTH SOLUTION 5ML BOTTLE. OU SCH ×2 (09:30→21:27)
[2021-03-27] MEDS: AMIODARONE HCL 200 MG TABLET. PO SCH (09:31)
[2021-03-27] MEDS: METOPROLOL TART IMMED RELEASE 25 MG TABLET. PO SCH ×2 (09:31→21:16)
[2021-03-27 11:00] VITALS: BP 129/74
--- NOTE | 2021-03-27 12:57 | PDOC ---
[facility] PROGRESS NOTE Date of Service DOS: DATE: 03/27/21 TIME: 12:52 Chief Complaint Chief Complaint Atrial fibrillation with RVR BL extremity chronic wounds and ulcers Lymphedema Inability to care for self ANTWAN (unknown baseline) Severe malnutrition History of Present Illness History of Present Illness 03/27 Pt seen and examined No acute overnight events Discussed current plan of care with pt Pt states he is feeling fine and has no complaints PICC line in place Lower extremities examined Pt in regular rhythm Charts reviewed Discussed with RN 03/26 Patient seen and examined at bedside No acute overnight events noted PICC line in place Pt is in regular rhythm Pt's lower extremities seen by WC, podiatry, and vascular surgery Vascular surgery recommending conservative management Charts reviewed SHAUN and TRISTIAN 03/25 Patient examined and seen at bedside No acute overnight events Pt in regular rhythm at time of exam Pt's LE extremities examined Discussed pt's living situation Charts reviewed Discussed with OT Discussed with RN and TRISTIAN 03/24 Pt seen and examined No acute overnight changes A. Fib present, but rate well controlled (70-90s) Charts Reviewed SHAUN and TRISTIAN 03/23 Patient seen and examined at bedside Pt comfortably resting at time of exam, NAD A. Fib noted on tele, rate well controlled (70-80s) Charts Reviewed Case discussed with RN and social economist Vitals/I&O Vitals/I&O: Vital Signs Date Time Temp Pulse Resp B/P (MAP) Pulse Ox O2 Delivery O2 Flow Rate FiO2 03/27/21 11:00 98.7 69 18 129/74 (92) 96 Room Air 98.7 I & O 03/26/21 03/26/21 03/27/21 15:00 23:00 07:00 Intake Total 600 ml 50 ml Output Total 1000 ml 500 ml Balance -1000 ml 100 ml 50 ml Physical Exam Physical Exam: GEN: Resting in bed, comfortable HEENT: Normal cephalic, atraumatic, external auditory canals are patent EYES: Extraocular muscles are intact, pupil are equally round and reactive to light and accommodation MUSCULOSKELETAL: Very limited range of motion ENDOCRINE: No thyromegaly was palpated LYMPHATICS: No cervical chain or axillary nodes were noted HEMATOPOIETIC: No bruising NECK: Supple, no JVD, no thyromegaly was noted LUNGS: Clear to auscultation in all lung costello without rhonchi or wheezing HEART: Atrial paced rhythm, Sinus Rhythm ABDOMEN: Soft, nontender. Positive bowel sounds, no organomegaly, normal bowel sounds EXTREMITIES: Bilateral lower extremity lymphedema, changes of chronic venous stasis, wounds throughout lower extremities NEUROLOGIC: Normal speech and tone. A&O x 3, moves all extremities, no obvious focal deficits PSYCHIATRIC: Normal affect, normal mood. Stable SKIN: Multiple skin wounds in lower extremities very edematous General: Alert, Oriented X3, Cooperative, No acute distress Heart: Regular rate, Normal S1, Normal S2, Other (distant heart sounds, Irregularly irregular) Lungs: Clear Abdomen: Soft, No tenderness, Other (obese) Extremities: No cyanosis, Other (LE lymphedema weeping) Skin: Other (LE venous dermaititis, chronic lyphemdema with right foot erythema) Labs Labs: Laboratory Tests Test 03/26/21 21:30 03/27/21 05:50 Vancomycin Level Trough 20.1 mcg/mL (10.0-20.0) Vancomycin Last Dose Date 03/26/21 Vancomycin Last Dose Time 0530 White Blood Count 8.4 x10^3/uL (4.0-11.0) Red Blood Count 4.46 x10^6/uL (4.30-5.70) Hemoglobin 12.7 g/dL (13.0-17.5) Hematocrit 38.4 % (39.0-53.0) Mean Corpuscular Volume 86 fL (79-100) Mean Corpuscular Hemoglobin 28 pg (25-35) Mean Corpuscular Hemoglobin Concent 33 g/dL (31-37) Red Cell Distribution Width 15.5 % (11.5-14.5) Platelet Count 260 x10^3/uL (140-400) Neutrophils (%) (Auto) 72 % (31-73) Lymphocytes (%) (Auto) 15 % (24-48) Monocytes (%) (Auto) 7 % (0-9) Eosinophils (%) (Auto) 5 % (0-3) Basophils (%) (Auto) 0 % (0-3) Neutrophils # (Auto) 6.1 x10^3/uL (1.8-7.7) Lymphocytes # (Auto) 1.2 x10^3/uL (1.0-4.8) Monocytes # (Auto) 0.6 x10^3/uL (0.0-1.1) Eosinophils # (Auto) 0.4 x10^3/uL (0.0-0.7) Basophils # (Auto) 0.0 x10^3/uL (0.0-0.2) Sodium Level 142 mmol/L (136-145) Potassium Level 3.5 mmol/L (3.5-5.1) Chloride Level 106 mmol/L (98-107) Carbon Dioxide Level 29 mmol/L (21-32) Anion Gap 7 (6-14) Blood Urea Nitrogen 21 mg/dL (8-26) Creatinine 1.7 mg/dL (0.7-1.3) Estimated GFR (Cockcroft-Gault) 39.8 Glucose Level 76 mg/dL (70-99) Calcium Level 8.0 mg/dL (8.5-10.1) Review of Systems Review of Systems: ROS negative Assessment and Plan Assessmemt and Plan Problems Medical Problems: (1) Atrial fibrillation with rapid ventricular response Status: Acute (2) Chest pain Status: Acute (3) Elevated troponin I level Status: Acute (4) Lymphedema of both lower extremities Status: Acute (5) Self-care deficit Status: Acute Atrial fibrillation with RVR - resolved BL extremity chronic wounds and ulcers and hyperkeratosis Lymphedema Inability to care for self ANTAWN (unknown baseline) Severe malnutrition Plan - Vascular surgery, Cardiology, Podiatry and WC input greatly appreciated - Cardiology following A. Fib (currently resolved) - Vascular surgery, podiatry, and WC following lower extremity care - PICC line in place - Continue monitoring on Telemetry - Continue Vanco and Zosyn - Daily ASA - Serial enzymes - Serial EKGs - PT/OT - Restarted home meds as indicated - DVT prophylaxis - Cardiac diet - Full Code Discharge disposition pending I suspect he might need half-way? Comment Review of Relevant I have reviewed the following items marlene (where applicable) has been applied. Medications: Current Medications Medications (Trade) Dose Ordered Sig/Placido Route PRN Reason Start Time Stop Time Status Last Admin Dose Admin Vancomycin HCl (Vancomycin Trough Level) 1 each 1X ONCE MC 03/26/21 23:00 03/26/21 23:01 DC 03/26/21 23:00 Justifications for Admission Other Justification TEE ORTIZ III DO Mar 27, 2021 12:57
[2021-03-27] MEDS: VANCOMYCIN PER PHARMACY MC PRN (14:27)
--- NOTE | 2021-03-27 14:47 | PDOC ---
CARDIOLOGY PROGRESS NOTE SUBJECTIVE: No acute events overnight. Denies any chest pain. No dyspnea. Resting comfortably in bed. OBJECTIVE: Vital Signs/I&O: Vital Signs Date Time Temp Pulse Resp B/P (MAP) Pulse Ox O2 Delivery O2 Flow Rate FiO2 03/27/21 11:00 98.7 69 18 129/74 (92) 96 Room Air 98.7 I & O 03/26/21 03/26/21 03/27/21 15:00 23:00 07:00 Intake Total 600 ml 50 ml Output Total 1000 ml 500 ml Balance -1000 ml 100 ml 50 ml Objective: GEN.: No apparent distress. Alert and oriented. HEENT: Head is normocephalic, atraumatic NECK: Supple. LUNGS: Clear to auscultation. HEART: RRR, S1, S2 present. Peripheral pulses intact ABDOMEN: Soft, nontender. Positive bowel sounds. EXTREMITIES: Bilateral chronic lymphedema, venous stasis, skin ulcerations. R foot wound noted. stable NEUROLOGIC: Normal speech, normal tone PSYCHIATRIC: Normal affect, normal mood. SKIN: Right foot ulcerations not opened. CURRENT MEDICATIONS: Amiodarone, metoprolol, lasix, aspirin. DIAGNOSTIC TESTING: Labs reviewed. Cr 1.8 Labs: Laboratory Tests 03/27/21 05:50 Laboratory Tests Test 03/26/21 21:30 03/27/21 05:50 Vancomycin Level Trough 20.1 mcg/mL (10.0-20.0) H Vancomycin Last Dose Date 03/26/21 Vancomycin Last Dose Time 0530 White Blood Count 8.4 x10^3/uL (4.0-11.0) Red Blood Count 4.46 x10^6/uL (4.30-5.70) Hemoglobin 12.7 g/dL (13.0-17.5) L Hematocrit 38.4 % (39.0-53.0) L Mean Corpuscular Volume 86 fL (79-100) Mean Corpuscular Hemoglobin 28 pg (25-35) Mean Corpuscular Hemoglobin Concent 33 g/dL (31-37) Red Cell Distribution Width 15.5 % (11.5-14.5) H Platelet Count 260 x10^3/uL (140-400) Neutrophils (%) (Auto) 72 % (31-73) Lymphocytes (%) (Auto) 15 % (24-48) L Monocytes (%) (Auto) 7 % (0-9) Eosinophils (%) (Auto) 5 % (0-3) H Basophils (%) (Auto) 0 % (0-3) Neutrophils # (Auto) 6.1 x10^3/uL (1.8-7.7) Lymphocytes # (Auto) 1.2 x10^3/uL (1.0-4.8) Monocytes # (Auto) 0.6 x10^3/uL (0.0-1.1) Eosinophils # (Auto) 0.4 x10^3/uL (0.0-0.7) Basophils # (Auto) 0.0 x10^3/uL (0.0-0.2) Sodium Level 142 mmol/L (136-145) Potassium Level 3.5 mmol/L (3.5-5.1) Chloride Level 106 mmol/L (98-107) Carbon Dioxide Level 29 mmol/L (21-32) Anion Gap 7 (6-14) Blood Urea Nitrogen 21 mg/dL (8-26) Creatinine 1.7 mg/dL (0.7-1.3) H Estimated GFR (Cockcroft-Gault) 39.8 Glucose Level 76 mg/dL (70-99) Calcium Level 8.0 mg/dL (8.5-10.1) L ASSESSMENT: 1. PAF 2. HTN 3. Diastolic HF 4. PAD with chronic lymphedema and venous stasis. PLAN: 1. Continue amiodarone and metoprolol to help maintain SR. He has had poor compliance with office visits, given falls etc would be a poor candidate for anticoagulation but if he is able to go to rehab, then plan for initiation of eliquis low dose if no plans from surgical debridement perspective. 2. We can coordinate with vascular surgery if inpt angiogram is needed but would agree with their assessment that at this time there appears to be adequate flow for wound healing and he needs aggressive local would care and antibiotics. 3. Continue lasix for diastolic HF. Monitor Cr. We will follow along closely. Justicifation of Admission Dx: Justifications for Admission: Justification of Admission Dx: No MATY DIAZ MD Mar 27, 2021 14:47
[2021-03-27 15:00] VITALS: BP 111/75
[2021-03-27 19:35] VITALS: BP 140/68
[2021-03-27] MEDS: ATORVASTATIN CALCIUM 20 MG TABLET PO SCH (21:16)
[2021-03-27] MEDS: LATANOPROST 0.005% OPHTH SOLUTION 2.5ML BOTTLE. OU SCH (21:16)
[2021-03-27 22:57] VITALS: BP 126/76
[2021-03-28] VITALS (19 sets, daily range): BP systolic 103–177; BP diastolic 58–102
[2021-03-28] MEDS: HEPARIN for SUB-Q USE 5,000 UNIT/ML VIAL. SQ SCH ×3 (04:49→20:44)
--- NOTE | 2021-03-28 04:50 | NUR ---
NURSING NOTE AM Heparin dose non administered d/t pt having aortogram today.
[2021-03-28] MEDS: PIPERACILLIN/TAZOBACTAM 3.375 GM in IV NORMAL SALINE 50ML 50 ML IV SCH ×4 (05:27→23:48)
[2021-03-28 05:45] LABS: BASO # 0.1 x10^3/uL (0.0-0.2); BASO % 1 % (0-3); EOS # 0.5 x10^3/uL (0.0-0.7); EOS % 6 % (0-3); HEMATOCRIT 39.6 % (39.0-53.0); HEMOGLOBIN 12.8 g/dL (13.0-17.5); LYMPH # 1.4 x10^3/uL (1.0-4.8); LYMPH % 17 % (24-48); MEAN CORPUSCULAR HEMOGLOBIN 28 pg (25-35); MEAN CORPUSCULAR HGB CONC 32 g/dL (31-37); MEAN CORPUSCULAR VOLUME 87 fL (79-100); MONO # 0.7 x10^3/uL (0.0-1.1); MONO % 9 % (0-9); NEUT # 5.6 x10^3/uL (1.8-7.7); NEUT % 68 % (31-73); PLATELET COUNT 275 x10^3/uL (140-400); RED BLOOD COUNT 4.55 x10^6/uL (4.30-5.70); RED CELL DISTRIBUTION WIDTH 15.7 % (11.5-14.5); WHITE BLOOD COUNT 8.3 x10^3/uL (4.0-11.0)
[2021-03-28 05:48] LABS: CALCIUM 8.2 mg/dL (8.5-10.1); CREATININE 1.7 mg/dL (0.7-1.3); GFR 39.8; POTASSIUM 3.4 mmol/L (3.5-5.1)
[2021-03-28] MEDS: SENNOSIDES/DOCUSATE 8.6/50MG TABLET. PO SCH ×2 (09:00→20:41)
[2021-03-28] MEDS: LACTOBACILLUS RHAMNOSUS GG 1 CAPSULE. PO SCH ×2 (09:00→20:38)
[2021-03-28] MEDS: TIMOLOL 0.25% OPHTH SOLUTION 5ML BOTTLE. OU SCH ×2 (09:03→20:38)
[2021-03-28] MEDS: BRIMONIDINE 0.2% OPHTH SOLUTION 5ML BOTTLE. OD SCH ×2 (09:03→20:38)
[2021-03-28] MEDS: AMIODARONE HCL 200 MG TABLET. PO SCH (09:03)
[2021-03-28] MEDS: METOPROLOL TART IMMED RELEASE 25 MG TABLET. PO SCH ×2 (09:03→20:41)
[2021-03-28] MEDS ORDERED: IODIXANOL 320 MG/ML 100 ML VIAL. ONE (11:06)
[2021-03-28] MEDS ORDERED: LIDOCAINE 1% Multi-Dose 20 ML VIAL. ONE (11:54)
[2021-03-28] MEDS: ASPIRIN ENTERIC COATED 81 MG TABLET.DR. PO SCH (11:58)
[2021-03-28] MEDS: DAPTOmycin (GENERIC) IVPB 560 MG in IV NORMAL SALINE 50ML 50 ML IV SCH (11:59)
[2021-03-28] MEDS ORDERED: MIDAZOLAM HCL/PF 5 MG/5 ML VIAL. ONE (12:01)
[2021-03-28] MEDS ORDERED: HEPARIN for IV BOLUS 10,000 UNIT/10 ML VIAL. ONE (12:02)
[2021-03-28] MEDS ORDERED: VERAPAMIL 5 MG/2 ML VIAL. ONE ×2 (12:02→12:30)
[2021-03-28] MEDS ORDERED: fentaNYL PF VIAL 100 MCG/2 ML VIAL ONE (12:02)
[2021-03-28] MEDS ORDERED: NITROGLYCERIN 200 MCG/2 ML SYRINGE FOR CATH/VASC LAB. ONE (12:03)
--- NOTE | 2021-03-28 12:36 | PDOC ---
[facility] PROGRESS NOTE Date of Service DOS: DATE: 03/28/21 TIME: 12:30 Chief Complaint Chief Complaint Atrial fibrillation with RVR BL extremity chronic wounds and ulcers Lymphedema Inability to care for self ANTWAN (unknown baseline) Severe malnutrition History of Present Illness History of Present Illness 03/28 Patient seen and examined at bedside No acute overnight events Discussed care of patient's lower extremities Pt has no complaints PICC line in place Lower extremities examined Chart reviewed RN and SW 03/27 Pt seen and examined No acute overnight events Discussed current plan of care with pt Pt states he is feeling fine and has no complaints PICC line in place Lower extremities examined Pt in regular rhythm Charts reviewed Discussed with RN 03/26 Patient seen and examined at bedside No acute overnight events noted PICC line in place Pt is in regular rhythm Pt's lower extremities seen by WC, podiatry, and vascular surgery Vascular surgery recommending conservative management Charts reviewed RN and SW 03/25 Patient examined and seen at bedside No acute overnight events Pt in regular rhythm at time of exam Pt's LE extremities examined Discussed pt's living situation Charts reviewed Discussed with OT Discussed with RN and TRISTIAN 03/24 Pt seen and examined No acute overnight changes A. Fib present, but rate well controlled (70-90s) Charts Reviewed R and SW 03/23 Patient seen and examined at bedside Pt comfortably resting at time of exam, NAD A. Fib noted on tele, rate well controlled (70-80s) Charts Reviewed Case discussed with RN and secondary social studies teacher Vitals/I&O Vitals/I&O: Vital Signs Date Time Temp Pulse Resp B/P (MAP) Pulse Ox O2 Delivery O2 Flow Rate FiO2 03/28/21 10:37 98.1 65 18 129/73 (91) 99 Room Air 98.1 I & O 03/27/21 03/27/21 03/28/21 15:00 23:00 07:00 Intake Total 400 ml 750 ml 50 ml Output Total 1550 ml 450 ml Balance -1150 ml 300 ml 50 ml Physical Exam Physical Exam: GEN: Resting in bed, comfortable HEENT: Normal cephalic, atraumatic, external auditory canals are patent EYES: Extraocular muscles are intact, pupil are equally round and reactive to light and accommodation MUSCULOSKELETAL: Very limited range of motion ENDOCRINE: No thyromegaly was palpated LYMPHATICS: No cervical chain or axillary nodes were noted HEMATOPOIETIC: No bruising NECK: Supple, no JVD, no thyromegaly was noted LUNGS: Clear to auscultation in all lung costello without rhonchi or wheezing HEART: Atrial paced rhythm, Sinus Rhythm ABDOMEN: Soft, nontender. Positive bowel sounds, no organomegaly, normal bowel sounds EXTREMITIES: Bilateral lower extremity lymphedema, changes of chronic venous stasis, wounds throughout lower extremities NEUROLOGIC: Normal speech and tone. A&O x 3, moves all extremities, no obvious focal deficits PSYCHIATRIC: Normal affect, normal mood. Stable, pleasant SKIN: Multiple skin wounds in lower extremities very edematous General: Alert, Oriented X3, Cooperative, No acute distress Heart: Regular rate, Normal S1, Normal S2, Other (distant heart sounds, Irregularly irregular) Lungs: Clear Abdomen: Soft, No tenderness, Other (obese) Extremities: No cyanosis, Other (LE lymphedema weeping) Skin: Other (LE venous dermaititis, chronic lyphemdema with right foot erythema) Labs Labs: Laboratory Tests Test 03/28/21 05:30 White Blood Count 8.3 x10^3/uL (4.0-11.0) Red Blood Count 4.55 x10^6/uL (4.30-5.70) Hemoglobin 12.8 g/dL (13.0-17.5) Hematocrit 39.6 % (39.0-53.0) Mean Corpuscular Volume 87 fL (79-100) Mean Corpuscular Hemoglobin 28 pg (25-35) Mean Corpuscular Hemoglobin Concent 32 g/dL (31-37) Red Cell Distribution Width 15.7 % (11.5-14.5) Platelet Count 275 x10^3/uL (140-400) Neutrophils (%) (Auto) 68 % (31-73) Lymphocytes (%) (Auto) 17 % (24-48) Monocytes (%) (Auto) 9 % (0-9) Eosinophils (%) (Auto) 6 % (0-3) Basophils (%) (Auto) 1 % (0-3) Neutrophils # (Auto) 5.6 x10^3/uL (1.8-7.7) Lymphocytes # (Auto) 1.4 x10^3/uL (1.0-4.8) Monocytes # (Auto) 0.7 x10^3/uL (0.0-1.1) Eosinophils # (Auto) 0.5 x10^3/uL (0.0-0.7) Basophils # (Auto) 0.1 x10^3/uL (0.0-0.2) Sodium Level 144 mmol/L (136-145) Potassium Level 3.4 mmol/L (3.5-5.1) Chloride Level 105 mmol/L (98-107) Carbon Dioxide Level 31 mmol/L (21-32) Anion Gap 8 (6-14) Blood Urea Nitrogen 19 mg/dL (8-26) Creatinine 1.7 mg/dL (0.7-1.3) Estimated GFR (Cockcroft-Gault) 39.8 Glucose Level 76 mg/dL (70-99) Calcium Level 8.2 mg/dL (8.5-10.1) Review of Systems Review of Systems: ROS negative Assessment and Plan Assessmemt and Plan Problems Medical Problems: (1) Atrial fibrillation with rapid ventricular response Status: Acute (2) Chest pain Status: Acute (3) Elevated troponin I level Status: Acute (4) Lymphedema of both lower extremities Status: Acute (5) Self-care deficit Status: Acute Atrial fibrillation with RVR - resolved BL extremity chronic wounds and ulcers and hyperkeratosis Lymphedema Inability to care for self ANTWAN (unknown baseline) Severe malnutrition Plan - Vascular surgery, Cardiology, Podiatry and WC input greatly appreciated - Cardiology following A. Fib (currently resolved), continuing amiodarone and metoprolol - Vascular surgery, podiatry, and WC following lower extremity care - Awaiting results of angiogram - PICC line in place - Continue monitoring on Telemetry - Continue Vanco and Zosyn - Daily ASA - Serial enzymes - Serial EKGs - PT/OT ordered - Restarted home meds - DVT prophylaxis - Cardiac diet - Full Code Discharge disposition pending I suspect he might need long-term? Comment Review of Relevant I have reviewed the following items marlene (where applicable) has been applied. Medications: Current Medications Medications (Trade) Dose Ordered Sig/Placido Route PRN Reason Start Time Stop Time Status Last Admin Dose Admin Daptomycin 560 mg/ Sodium Chloride 50 ml @ 100 mls/hr Q24H IV 03/28/21 11:00 03/28/21 11:59 Justifications for Admission Other Justification TEE ORTIZ K III DO Mar 28, 2021 12:36
[2021-03-28] MEDS ORDERED: MIDAZOLAM HCL/PF 5 MG/5 ML VIAL. IV ONE (12:45)
[2021-03-28] MEDS ORDERED: LIDOCAINE 1% Multi-Dose 20 ML VIAL. INJ ONE (12:45)
[2021-03-28] MEDS ORDERED: fentaNYL PF VIAL 100 MCG/2 ML VIAL IV ONE (12:45)
[2021-03-28] MEDS ORDERED: IODIXANOL 320 MG/ML 100 ML VIAL. IART ONE (12:45)
[2021-03-28] MEDS ORDERED: CONTRAST GIVEN. MC PRN (12:45)
[2021-03-28] MEDS ORDERED: HEPARIN for IV BOLUS 10,000 UNIT/10 ML VIAL. IV ONE (13:00)
--- NOTE | 2021-03-28 14:40 | CONS ---
DATE OF CONSULTATION: 03/28/2021 INFECTIOUS DISEASE CONSULTATION REASON FOR CONSULTATION: Right lower extremity cellulitis, chronic lymphedema. REFERRING PHYSICIAN: KARON Kumar HISTORY OF PRESENT ILLNESS: A 70-year-old male who presented to the ER on 03/22/2021 with complaints of chest pain, dizziness, generalized weakness. The patient has chronic venous insufficiency with chronic bilateral lower extremity lymphedema. He also has maceration and malodorous drainage from both the feet. The patient was noted to have atrial fibrillation, started on amiodarone. The patient has had these wounds for a couple of months. Due to worsening swelling, he felt that the wounds got worse. He denies any fevers, chills, nausea, vomiting, diarrhea, abdominal pain. Foot x-ray suggested osteomyelitis involving the fifth metatarsal. Right lower extremity ultrasound showed biphasic to monophasic blood flow below the knee. The patient was started on vancomycin and Zosyn. Vascular surgery was consulted. They recommended antibiotics and aggressive local wound care for now. Due to lymphedema, wound debridement or amputation would be difficult. The patient is also being followed by podiatry team. ID consultation has been requested for antibiotic management. PAST MEDICAL HISTORY: Coronary artery disease, CHF, hypertension, hyperlipidemia, peripheral vascular disease, cardiomyopathy, aortic aneurysm, paroxysmal atrial fibrillation, GERD, anemia, osteoarthritis, chronic lymphedema, CKD, benign prostatic hypertrophy. PAST SURGICAL HISTORY: Prostate laser surgery, PPM placement. FAMILY HISTORY: As per HPI. SOCIAL HISTORY: Denies smoking, ETOH, or illicit drug use. Lives with brother. No pets. CURRENT MEDICATIONS: IV vancomycin and Zosyn. Other medications reviewed in medication list. ALLERGIES: No known drug allergies. REVIEW OF SYSTEMS: Negative except for above in HPI. PHYSICAL EXAMINATION: VITAL SIGNS: Temperature 97.8, pulse 75, respiratory rate 18, blood pressure 154/86, oxygen saturation 100% on room air. GENERAL: Alert, oriented x3 male, lying in bed comfortably, in no acute distress. HEENT: Normocephalic, atraumatic. Anicteric. No thrush. Oral mucosa moist. NECK: Supple, no JVD. LUNGS: Clear bilaterally. No wheezing. HEART: S1, S2. No gallops or murmurs. Chest wall PPM site looks okay. ABDOMEN: Soft, obese. Bowel sounds present. Positive bowel sounds. EXTREMITIES: Bilateral chronic lymphedema and venous stasis. SKIN: Plantar surface on the right foot dressing taken down. Two small wounds. Lateral wound packed, probes through the bone. Wound is clean and healthy. No surrounding redness. No gross purulence. Heel ulcer is clean superficial. NEUROLOGIC: Alert, oriented x 3, grossly nonfocal. PSYCHIATRIC: Calm and cooperative. LABORATORY DATA: WBC 8.3, hemoglobin 12.8, hematocrit 39.6, platelets 275. Sodium 144, potassium 3.4, chloride 105, bicarbonate 31, BUN 19, creatinine 1.7. Vancomycin trough 20.1. UA negative. Serology SARS-COVID negative. MICRO: Blood cultures negative. Urine culture, Enterococcus faecalis amp sensitive along with three other organisms, likely colonization. Wound culture, right fifth toe wound from 03/23 showing Bacteroides anaerobic vaginalis, Prevotella, Proteus mirabilis, Enterococcus avium. Wound culture from right heel wound is showing Proteus and Enterococcus vaginalis Bacteroides group unidentified organism and Proteus mirabilis. IMPRESSION: Right fifth metatarsal, possible osteomyelitis, right plantar ulceration, Chronic lymphedema, chronic venous stasis, atrial fibrillation, CKD, status post PPM, CHF, hypertension, hyperlipidemia, osteoarthritis, chest pain, elevated troponin POA, self-care deficit. RECOMMENDATIONS: Discontinue vancomycin, continue Zosyn, may need renal dosing. Pharmacy to assist with Zosyn dose. Start daptomycin. May need renal dosing. Offload wound care as directed. Vascular input noted. Patient is not a candidate for surgery Due to underlying severe lymphedema and chronic venous stasis and concern for adequate healing. Patient is given trial with antibiotics currently. If patient does not get optimal expected response, the patient may need debridement. Despite aggressive antibiotic treatment, the patient is at risk of further surgery or possible amputation Monitor labs and cultures. Continue supportive care. Discussed with nursing staff. Thank you for allowing me to participate in this patient's care. If you have any questions, do not hesitate to contact me. CHUCKY JAY: Jackson TID: [id number] MTDD
[2021-03-28] MEDS: FUROSEMIDE 40 MG/4 ML VIAL. IVP SCH (14:58)
[2021-03-28] MEDS ORDERED: POTASSIUM CHLORIDE 20 MEQ TABLET.ER. PO ONE (15:15)
--- NOTE | 2021-03-28 15:37 | NUR ---
SS following up with discharge planning. SS reviewed pt chart and discussed with pt RN. Pt is currently on room air. COVID19 negative. Pt on IV Lasix, IV Daptomycin, and IV Zosyn. Pt having aortogram with runoff today. Wound care following. PT/OT recommended [facility] unit. Pt has [employer] Medicaid. Pt may need to consider LTC placement with Medicaid. SS will continue to follow for discharge planning.
--- NOTE | 2021-03-28 16:41 | CARD ---
MR#: [id number] Date of Study: 03/28/2021 Ordering Physician: MATY SHEPPARD, Referring Physician: MATY SHEPPARD, Tech: Belkys Cardozo RT(R) APPROVED REPORT Patient StatusIN-PATIENT Software Database Architect: Belkys Cardozo RT(R) Procedure(s) performed: MODERATE SEDATION TIME: 100 MINUTES FLUORO TIME: 24.5 MIN DOSE: 276 GYCM2 CONTRAST: 55CC VISI Abdominal aortogram with bilateral run-off 3rd order catheter placement in the Right anterior tibial artery INDICATION FOR PROCEDURE The indication(s) include : Right foot wound with Doppler. CASE TECHNIQUE After explaining the risks, benefits, and alternative options, informed consent was obtained from the patient. IV conscious sedation was used throughout procedure with appropriate monitoring and was per formed in the presence of a registered nurse who was an independent trained observer other than the jia nuñez performing the procedure. During this case, Fluoroscopy and low osmolar contrast were used f or imaging. Specimen(s) Removed: N/A Estimated Blood loss: 15 cc's. PROCEDURE NARRATIVE Clinical information: 70-year-old male admitted to the hospital in the setting of a right foot wound. Due to Doppler evide nce of possible obstructive disease he was brought to the angiography suite for further evaluation. Procedure details: After appropriate informed consent the left groin was prepped and draped in usual sterile fashion. U nder 1% lidocaine local anesthesia a 5 Georgian sheath was placed in the left common femoral artery via the modified Seldinger technique. Next, a 5 Georgian Omni Flush catheter was advanced to the mid abdo torres aorta and digital subtraction angiography using CO2 was performed. Next, the Omni Flush cathet er was used to engage the right common iliac artery and a J-tipped guidewire was then placed in the r ight common femoral artery. The catheter was then advanced over the wire and right lower extremity a ngiography was performed using CO2. Next, a Glidewire advantage wire was placed in the distal poplit eal artery and the Omni Flush catheter was exchanged for a 0.035 inch angled Bess cross catheter. Be low-knee angiography was then performed with contrast injection. Findings: Aorta no significant disease Bilateral common iliac arteries no significant disease Bilateral internal iliac artery have no significant disease proximally, distal vessels were not well visualized Bilateral external iliac arteries have no significant disease Bilateral common femoral arteries have no significant disease Right SFA has no significant disease Right profunda has no significant disease Right popliteal artery has no significant disease Right anterior tibial artery is proximally occluded, the distal vessel is seen to fill via collateral s from the peroneal and posterior tibial vessels. Right peroneal artery has no significant disease Right posterior tibial artery is the dominant circulation to the foot without any significant disease . Interventional technique: Given the patient's nonhealing wound at the base and lack of a significant wound blush a attempt was made to improve flow and recanalize the right anterior tibial artery occlusion. Heparin was used for anticoagulation the left-sided sheath was exchanged for a 6 Georgian 45 cm Ozsale destination sheath. Next the angled glide Bess cross catheter was used to wire the anterior tibial artery with a command 0.014 inch wire. This wire was subintimal in the mid anterior tibial artery and likely exited the v essel architecture in the mid to distal segment. Therefore the wire was pulled back in a command ST wire with the aid of a 0.018 inch angled Bess cross catheter and a mother-daughter technique was used for support and despite this and making a loop with the command wire the occlusion was unable to be traversed. A small hematoma was noted on contrast injection and therefore further intervention was d eferred given that there was significant robust flow from the two-vessel runoff. At case completion the distal vasculature was unaffected. The left groin sheath was removed and hemostasis was achieved via manual compression when the ACT was less than 180. No acute complications noted. Conclusion 1. No significant aortoiliac disease bilaterally 2. No significant above disease in the right lower extremity 3. 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 Robust two-vessel runoff with a dominant posterior tibial and peroneal vessels. Recommendations 1. Continue aggressive wound care and antibiotic therapy. 2. If after wound care therapy on outpatient basis the patient has inadequate wound healing could co nsider retrograde pedal approach for anterior tibial artery recanalization. Signed by : Maty Sheppard, Electronically Approved : 03/28/2021 16:40:31
[2021-03-28] MEDS ORDERED: LOPERAMIDE 2 MG CAPSULE PO PRN (17:45)
[2021-03-28] MEDS: ATORVASTATIN CALCIUM 20 MG TABLET PO SCH (20:38)
[2021-03-28] MEDS: LATANOPROST 0.005% OPHTH SOLUTION 2.5ML BOTTLE. OU SCH (20:38)
[2021-03-29 03:25] VITALS: BP 107/55
[2021-03-29 04:52] LABS: BASO % 0 % (0-3); EOS # 0.5 x10^3/uL (0.0-0.7); EOS % 6 % (0-3); HEMATOCRIT 39.5 % (39.0-53.0); HEMOGLOBIN 12.9 g/dL (13.0-17.5); LYMPH # 1.1 x10^3/uL (1.0-4.8); LYMPH % 12 % (24-48); MEAN CORPUSCULAR HEMOGLOBIN 28 pg (25-35); MEAN CORPUSCULAR HGB CONC 33 g/dL (31-37); MEAN CORPUSCULAR VOLUME 86 fL (79-100); MONO # 0.7 x10^3/uL (0.0-1.1); MONO % 8 % (0-9); NEUT # 6.5 x10^3/uL (1.8-7.7); NEUT % 74 % (31-73); PLATELET COUNT 255 x10^3/uL (140-400); RED BLOOD COUNT 4.57 x10^6/uL (4.30-5.70); RED CELL DISTRIBUTION WIDTH 15.5 % (11.5-14.5); WHITE BLOOD COUNT 8.8 x10^3/uL (4.0-11.0)
[2021-03-29 05:11] LABS: CALCIUM 8.1 mg/dL (8.5-10.1); CREATININE 1.7 mg/dL (0.7-1.3); GFR 39.8; POTASSIUM 3.8 mmol/L (3.5-5.1)
[2021-03-29] MEDS: PIPERACILLIN/TAZOBACTAM 3.375 GM in IV NORMAL SALINE 50ML 50 ML IV SCH ×4 (05:57→23:34)
[2021-03-29] MEDS: HEPARIN for SUB-Q USE 5,000 UNIT/ML VIAL. SQ SCH ×3 (06:02→21:18)
[2021-03-29 07:00] VITALS: BP 127/63
[2021-03-29] MEDS: SENNOSIDES/DOCUSATE 8.6/50MG TABLET. PO SCH ×2 (07:19→21:00)
[2021-03-29] MEDS: ASPIRIN ENTERIC COATED 81 MG TABLET.DR. PO SCH (07:50)
[2021-03-29] MEDS: LACTOBACILLUS RHAMNOSUS GG 1 CAPSULE. PO SCH ×2 (07:50→21:15)
[2021-03-29] MEDS: AMIODARONE HCL 200 MG TABLET. PO SCH (07:50)
[2021-03-29] MEDS: METOPROLOL TART IMMED RELEASE 25 MG TABLET. PO SCH ×2 (07:51→21:15)
[2021-03-29] MEDS: FUROSEMIDE 40 MG/4 ML VIAL. IVP SCH (07:52)
[2021-03-29] MEDS: BRIMONIDINE 0.2% OPHTH SOLUTION 5ML BOTTLE. OD SCH ×2 (07:52→21:15)
[2021-03-29] MEDS: TIMOLOL 0.25% OPHTH SOLUTION 5ML BOTTLE. OU SCH ×2 (07:52→21:15)
--- NOTE | 2021-03-29 09:21 | PDOC ---
Infectious Disease Note Subjective: Subjective Patient without complaints Vital Signs: Vital Signs Vital Signs Date Time Temp Pulse Resp B/P (MAP) Pulse Ox O2 Delivery O2 Flow Rate FiO2 03/29/21 08:00 Room Air 03/29/21 07:51 65 127/63 03/29/21 07:00 98.3 17 95 98.3 03/28/21 13:51 2.0 Physical Exam: PHYSICAL EXAM GENERAL: Alert, oriented x3 male, lying in bed comfortably, in no acute distress. HEENT: Normocephalic, atraumatic. Anicteric. No thrush. Oral mucosa moist. NECK: Supple, no JVD. LUNGS: Clear bilaterally. No wheezing. HEART: S1, S2. No gallops or murmurs. Chest wall PPM site looks okay. ABDOMEN: Soft, obese. Bowel sounds present. Positive bowel sounds. EXTREMITIES: Bilateral chronic lymphedema and venous stasis. SKIN: Plantar surface on the right foot dressing taken down. Two small wounds. Lateral wound packed, probes through the bone. Wound is clean and healthy. No surrounding redness. No gross purulence. Heel ulcer is clean superficial. NEUROLOGIC: Alert, oriented x 3, grossly nonfocal. PSYCHIATRIC: Calm and cooperative. Medications: Inpatient Meds: Medications reviewed. Labs: Lab Laboratory Tests Test 03/28/21 13:37 03/29/21 04:35 Activated Clotting Time 239 sec (92-181) White Blood Count 8.8 x10^3/uL (4.0-11.0) Red Blood Count 4.57 x10^6/uL (4.30-5.70) Hemoglobin 12.9 g/dL (13.0-17.5) Hematocrit 39.5 % (39.0-53.0) Mean Corpuscular Volume 86 fL (79-100) Mean Corpuscular Hemoglobin 28 pg (25-35) Mean Corpuscular Hemoglobin Concent 33 g/dL (31-37) Red Cell Distribution Width 15.5 % (11.5-14.5) Platelet Count 255 x10^3/uL (140-400) Neutrophils (%) (Auto) 74 % (31-73) Lymphocytes (%) (Auto) 12 % (24-48) Monocytes (%) (Auto) 8 % (0-9) Eosinophils (%) (Auto) 6 % (0-3) Basophils (%) (Auto) 0 % (0-3) Neutrophils # (Auto) 6.5 x10^3/uL (1.8-7.7) Lymphocytes # (Auto) 1.1 x10^3/uL (1.0-4.8) Monocytes # (Auto) 0.7 x10^3/uL (0.0-1.1) Eosinophils # (Auto) 0.5 x10^3/uL (0.0-0.7) Basophils # (Auto) 0.0 x10^3/uL (0.0-0.2) Sodium Level 144 mmol/L (136-145) Potassium Level 3.8 mmol/L (3.5-5.1) Chloride Level 107 mmol/L (98-107) Carbon Dioxide Level 31 mmol/L (21-32) Anion Gap 6 (6-14) Blood Urea Nitrogen 25 mg/dL (8-26) Creatinine 1.7 mg/dL (0.7-1.3) Estimated GFR (Cockcroft-Gault) 39.8 Glucose Level 79 mg/dL (70-99) Calcium Level 8.1 mg/dL (8.5-10.1) Creatine Kinase 26 U/L (39-308) Micro RUN DATE: 03/28/21 [facility] *LIVE* PAGE 1 RUN TIME: 09 Specimen Inquiry PATIENT: JOSE MERCADO ACCT: [id number] LOC: [address] [place] [address] U: [id number] AGE/SX: 70/M ROOM: [facility] RE03/22/[address]: TEE ORTIZ III, DO : 1950 BED: 1 DIS: STATUS: ADM IN TLOC: SPEC #: [id number] YENI: 03/23/21 STATUS: COMP REQ #: [id number] RECD: 03/23/[address]: TEE ORTIZ III, DO SOURCE: FOOT ENTR: 03/23/[address]: JODI CARABALLO DO SPDES: RIGHT NAVARRO JJ MD, PRASHANTH S MD KOURY, JOSEPH P MD NO PCP ORDERED: ANAER/AEROB/GS COMMENTS: Has specimen been collected/obtained R 5TH TOE WOUND Procedure Result GRAM STAIN Final Final GRAM NEGATIVE RODS:MANY GRAM POSITIVE COCCI:MANY SQUAMOUS EPI CELL:FEW PMN (WBCs):MODERATE Unless otherwise specified, Testing Performed by: [address] [address] For Inquires, the Physician may contact the Microbiology department at [phone] ANAEROBIC-AEROBIC CULTURE Final Final MIXED AEROBIC AND ANAEROBIC GUALBERTO on 03/25/21 at 1210 INCLUDING: FEW GRAM NEGATIVE RODS on 03/24/21 at 0901 FINAL ID= [PROTEUS MIRABILIS], SEE TAQUERIA ON [id number] RARE [STAPHYLOCOCCUS EPIDERMIDIS] FEW [CORYNEBACTERIUM AMYCOLATUM] FEW [ENTEROCOCCUS AVIUM] MODERATE [BACTEROIDES THETAIOTAOMICRON G] MODERATE [ANAEROCOCCUS VAGINALIS] MANY [PREVOTELLA SPECIES] PROTEUS MIRABILIS STAPHYLOCOCCUS EPIDERMIDIS CORYNEBACTERIUM AMYCOLATUM ENTEROCOCCUS AVIUM BACTEROIDES THETAIOTAOMICRON G ANAEROCOCCUS VAGINALIS PREVOTELLA SPECIES Unless otherwise specified, Testing Performed by: [facility] [address] [place] [address] RUN DATE: 03/28/21 [facility] *LIVE* PAGE 2 RUN TIME: 924 Specimen Inquiry SPEC: [id number] PATIENT: JOSE MERCADO [id number] (Continued) Procedure Result CONTINUED ON NEXT PAGE RUN DATE: 03/28/21 [facility] *LIVE* PAGE 3 RUN TIME: 0925 Specimen Inquiry SPEC: [id number] PATIENT: JOSE MERCADO [id number] (Continued) Procedure Result -- ANAEROBIC-AEROBIC CULTURE Final (continued) For Inquires, the Physician may contact the Microbiology department at [phone] RUN DATE: 03/28/21 [facility] *LIVE* PAGE 1 RUN TIME: 0920 Specimen Inquiry PATIENT: JOSE MERCADO ACCT: [id number] LOC: [address] [place] [address] U: [id number] AGE/SX: 70/M ROOM: [facility] RE03/22/[address]: TEE ORTIZ III, DO : 1950 BED: 1 DIS: STATUS: ADM IN TLOC: SPEC #: [id number] YENI: 03/23/21 STATUS: COMP REQ #: [id number] RECD: 03/23/[address]: TEE ORTIZ III, DO SOURCE: FOOT ENTR: 03/23/[address]: JODI CARABALLO DO SPDESC: WOUND NAVARRO JJ MD,MATY BRO,CURTIS Conrad MD NO PCP ORDERED: ANAER/ZACARIAS/DAKOTA COMMENTS: Has specimen been collected/obtained? Y R HEEL WOUND Procedure Result GRAM STAIN Final Final GRAM NEGATIVE RODS:RARE GRAM POSITIVE COCCI:RARE RBC:MODERATE SQUAMOUS EPI CELL:RARE PMN (WBCs):RARE Unless otherwise specified, Testing Performed by: [address] [address] For Inquires, the Physician may contact the Microbiology department at [phone] ANAEROBIC-AEROBIC CULTURE Final Final MIXED AEROBIC AND ANAEROBIC GUALBERTO on 03/25/21 at 1206 INCLUDING: FEW GRAM NEGATIVE RODS on 03/24/21 at 0855 FINAL ID= [PROTEUS MIRABILIS] FEW [BACTEROIDES OVATUS GROUP] on 03/25/21 at 1206 MODERATE [ANAEROCOCCUS VAGINALIS] on 03/25/21 at 1207 FEW Mixed skin gualberto isolated on 03/27/21 at 1055 PROTEUS MIRABILIS UNIDENTIFIED ORGANISM BACTEROIDES OVATUS GROUP ANAEROCOCCUS VAGINALIS ANTIMICROBIAL SUSCEPTIBILITY Final Comment NEG TAQUERIA 56 PROTEUS MIRABILIS ANTIBIOTIC RESULT INTERPRETATION AMPICILLIN/SULBACTAM <=4/2 S AMIKACIN <=16 S RUN DATE: 03/28/21 [facility] *LIVE* PAGE 2 RUN TIME: 09 Specimen Inquiry SPEC: [id number] PATIENT: JOSE MERCADO [id number] (Continued) Procedure Result CONTINUED ON NEXT PAGE RUN DATE: 03/28/21 [facility] *LIVE* PAGE 3 RUN TIME: 0920 Specimen Inquiry SPEC: [id number] PATIENT: JOSE MERCADO [id number] (Continued) Procedure Result ANTIMICROBIAL SUSCEPTIBILITY Final (continued) AMPICILLIN <=8 S AMOXICILLIN/K CLAVULANATE <=8/4 S AZTREONAM <=4 S CEFTRIAXONE <=1 S CEFTAZIDIME <=1 S CEFOTAXIME <=2 S CEFOXITIN <=8 S CEFAZOLIN <=2 S CIPROFLOXACIN <=0.25 S CEFEPIME <=2 S CEFUROXIME <=4 S CEFTAZIDIME/AVIBACTAM <=4 S ERTAPENEM <=0.5 S GENTAMICIN <=2 S LEVOFLOXACIN <=0.5 S MEROPENEM <=1 S PIPERACILLIN/TAZOBACTAM <=8 S TRIMETHOPRIM/SULFAMETHOXAZOLE <=0.5/9.5 S TETRACYCLINE <=4 R* TOBRAMYCIN <=2 S Unless otherwise specified, Testing Performed by: [address] [address] For Inquires, the Physician may contact the Microbiology department at [phone] Objective: Assessment: Right fifth metatarsal, possible osteomyelitis, Follow-up cultures polymicrobial including Proteus mirabilis and Enterococcus avium Discussed with micro lab Enterococcus avium susceptibilities are not available due to polymicrobial growth on cultures Chronic right plantar ulceration, Chronic lymphedema, chronic venous stasis, atrial fibrillation,status post PPM, CHF, hypertension, hyperlipidemia, osteoarthritis, chest pain, elevated troponin poa, self-care deficit. Swab cultures MODERATE [BACTEROIDES THETAIOTAOMICRON G] MODERATE [ANAEROCOCCUS VAGINALIS] MANY [PREVOTELLA SPECIES] PROTEUS MIRABILIS STAPHYLOCOCCUS EPIDERMIDIS CORYNEBACTERIUM AMYCOLATUM ENTEROCOCCUS AVIUM BACTEROIDES THETAIOTAOMICRON G ANAEROCOCCUS VAGINALIS PREVOTELLA SPECIES Plan: Plan of Care Continue daptomycin and Zosyn Monitor labs and cultures Upon discharge patient will need daptomycin and IV Invanz, first dose of Invanz here before discharge Continue local wound care as directed Offload If patient does not get optimal response with above antibiotic treatment will need surgical debridement Patient remains poor candidate for appropriate healing due to underlying comorbidities Optimal edema control PT and OT as tolerated 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
[2021-03-29] MEDS: DAPTOmycin (GENERIC) IVPB 560 MG in IV NORMAL SALINE 50ML 50 ML IV SCH (10:14)
[2021-03-29 11:00] VITALS: BP 101/56
--- NOTE | 2021-03-29 11:52 | PDOC ---
[employer] PROGRESS NOTE Date of Service DOS: DATE: 03/29/21 TIME: 11:39 Chief Complaint Chief Complaint Atrial fibrillation with RVR CHF HTN HLP Osteoarthritis BL extremity chronic wounds and ulcers Chronic Lymphedema Chronic venous stasis Right fifth metatarsal, possible osteomyelitis Inability to care for self ANTWAN (unknown baseline) Severe malnutrition History of Present Illness History of Present Illness 03/29 Patient examined and seen at bedside No acute overnight events Discussed results of aortogram Pt currently has no complaints PICC line in place Lower extremities examined Charts reviewed Discussed case with RN and TRISTIAN 03/28 Patient seen and examined at bedside No acute overnight events Discussed care of patient's lower extremities Pt has no complaints PICC line in place Lower extremities examined Chart reviewed RN and 03/27 Pt seen and examined No acute overnight events Discussed current plan of care with pt Pt states he is feeling fine and has no complaints PICC line in place Lower extremities examined Pt in regular rhythm Charts reviewed Discussed with RN 03/26 Patient seen and examined at bedside No acute overnight events noted PICC line in place Pt is in regular rhythm Pt's lower extremities seen by WC, podiatry, and vascular surgery Vascular surgery recommending conservative management Charts reviewed [facility] and 03/25 Patient examined and seen at bedside No acute overnight events Pt in regular rhythm at time of exam Pt's LE extremities examined Discussed pt's living situation Charts reviewed Discussed with OT Discussed with RN and TRISTIAN 03/24 Pt seen and examined No acute overnight changes A. Fib present, but rate well controlled (70-90s) Charts Reviewed R and 03/23 Patient seen and examined at bedside Pt comfortably resting at time of exam, NAD A. Fib noted on tele, rate well controlled (70-80s) Charts Reviewed Case discussed with RN and social media content manager Vitals/I&O Vitals/I&O: Vital Signs Date Time Temp Pulse Resp B/P (MAP) Pulse Ox O2 Delivery O2 Flow Rate FiO2 03/29/21 11:00 98.3 69 17 101/56 (71) 97 Room Air 98.3 03/28/21 13:51 2.0 I & O 0 03/28/21 03/28/21 03/29/21 15:00 23:00 07:00 Intake Total 0 ml 540 ml 350 ml Output Total 350 ml 1250 ml 300 ml Balance -350 ml -710 ml 50 ml Physical Exam Physical Exam: GENERAL: Alert, oriented x3 male, lying in bed comfortably, in no acute distress. HEENT: Normocephalic, atraumatic. Anicteric. No thrush. Oral mucosa moist. NECK: Supple, no JVD. LUNGS: Clear bilaterally. No wheezing. HEART: S1, S2. No gallops or murmurs. Chest wall PPM site looks okay. ABDOMEN: Soft, obese. Bowel sounds present. Positive bowel sounds. EXTREMITIES: Bilateral chronic lymphedema and venous stasis. SKIN: Plantar surface on the right foot dressing taken down. Two small wounds. Lateral wound packed, probes through the bone. Wound is clean and healthy. No surrounding redness. No gross purulence. Heel ulcer is clean superficial. NEUROLOGIC: Alert, oriented x 3, grossly nonfocal. PSYCHIATRIC: Calm and cooperative. General: Alert, Oriented X3, Cooperative, No acute distress Heart: Regular rate, Normal S1, Normal S2, Other (distant heart sounds, Irregularly irregular) Lungs: Clear Abdomen: Soft, No tenderness, Other (obese) Extremities: No cyanosis, Other (LE lymphedema weeping) Skin: Other (LE venous dermaititis, chronic lyphemdema with right foot erythema) Labs Labs: Laboratory Tests Test 03/28/21 13:37 03/29/21 04:35 Activated Clotting Time 239 sec (92-181) White Blood Count 8.8 x10^3/uL (4.0-11.0) Red Blood Count 4.57 x10^6/uL (4.30-5.70) Hemoglobin 12.9 g/dL (13.0-17.5) Hematocrit 39.5 % (39.0-53.0) Mean Corpuscular Volume 86 fL (79-100) Mean Corpuscular Hemoglobin 28 pg (25-35) Mean Corpuscular Hemoglobin Concent 33 g/dL (31-37) Red Cell Distribution Width 15.5 % (11.5-14.5) Platelet Count 255 x10^3/uL (140-400) Neutrophils (%) (Auto) 74 % (31-73) Lymphocytes (%) (Auto) 12 % (24-48) Monocytes (%) (Auto) 8 % (0-9) Eosinophils (%) (Auto) 6 % (0-3) Basophils (%) (Auto) 0 % (0-3) Neutrophils # (Auto) 6.5 x10^3/uL (1.8-7.7) Lymphocytes # (Auto) 1.1 x10^3/uL (1.0-4.8) Monocytes # (Auto) 0.7 x10^3/uL (0.0-1.1) Eosinophils # (Auto) 0.5 x10^3/uL (0.0-0.7) Basophils # (Auto) 0.0 x10^3/uL (0.0-0.2) Sodium Level 144 mmol/L (136-145) Potassium Level 3.8 mmol/L (3.5-5.1) Chloride Level 107 mmol/L (98-107) Carbon Dioxide Level 31 mmol/L (21-32) Anion Gap 6 (6-14) Blood Urea Nitrogen 25 mg/dL (8-26) Creatinine 1.7 mg/dL (0.7-1.3) Estimated GFR (Cockcroft-Gault) 39.8 Glucose Level 79 mg/dL (70-99) Calcium Level 8.1 mg/dL (8.5-10.1) Creatine Kinase 26 U/L (39-308) Review of Systems Review of Systems: ROS negative Assessment and Plan Assessmemt and Plan Problems Medical Problems: (1) Atrial fibrillation with rapid ventricular response Status: Acute (2) Chest pain Status: Acute (3) Elevated troponin I level Status: Acute (4) Lymphedema of both lower extremities Status: Acute (5) Self-care deficit Status: Acute Atrial fibrillation with RVR CHF HTN HLP Osteoarthritis BL extremity chronic wounds and ulcers Chronic Lymphedema Chronic venous stasis Right fifth metatarsal, possible osteomyelitis Inability to care for self ANTWAN (unknown baseline) Severe malnutrition Plan - Infectious Disease, Vascular surgery, Cardiology, Podiatry and WC input greatly appreciated - Cardiology following A. Fib (currently resolved), continuing amiodarone and metoprolol - Vascular surgery, podiatry, and WC following lower extremity care - ID following possible osteomyelitis - Aortogram performed yesterday, R. anterior tibial artery proximally occluded. Recannulization attempted, but unsuccessful. - PICC line in place - Continue monitoring on Telemetry - Changed vancomycin to daptomycin, per ID - Per ID, Pt will need 1x dose IV Invanz prior to discharge - Continue Zosyn - Daily ASA - Serial enzymes - Serial EKGs - Continue to monitor cultures - PT/OT ordered - Restarted home meds - DVT prophylaxis - Cardiac diet - Full Code Discharge disposition pending I suspect he might need care home? Comment Review of Relevant I have reviewed the following items marlene (where applicable) has been applied. Medications: Current Medications Medications (Trade) Dose Ordered Sig/Placido Route PRN Reason Start Time Stop Time Status Last Admin Dose Admin Heparin Sodium/ Sodium Chloride (HEPARIN for ARTERIAL LINE FLUSH) 1,000 unit 1X ONCE IART 03/28/21 12:45 03/28/21 12:46 DC 03/28/21 13:35 Heparin Sodium/ Sodium Chloride (HEPARIN for ARTERIAL LINE FLUSH) 1,000 unit 1X ONCE IART 03/28/21 12:45 03/28/21 12:46 DC 03/28/21 13:39 Midazolam HCl (Versed) 5 mg 1X ONCE IV 03/28/21 12:45 03/28/21 12:46 DC 03/28/21 13:41 Fentanyl Citrate (Fentanyl 2ml Vial) 100 mcg 1X ONCE IV 03/28/21 12:45 03/28/21 12:46 DC 03/28/21 13:41 Iodixanol (Visipaque 320) 100 ml 1X ONCE IART 03/28/21 12:45 03/28/21 12:46 DC 03/28/21 13:39 Lidocaine HCl (Lidocaine 1% 20ml Vial) 20 ml 1X ONCE INJ 03/28/21 12:45 03/28/21 12:46 DC 03/28/21 13:39 Heparin Sodium (Porcine) (Heparin Sodium) 5,000 unit 1X ONCE IV 03/28/21 13:00 03/28/21 13:02 DC 03/28/21 13:42 Potassium Chloride (Klor-Con) 40 meq 1X ONCE PO 03/28/21 15:15 03/28/21 15:16 DC 03/28/21 16:32 Loperamide HCl (Imodium) 2 mg PRN Q15MIN PRN PO DIARRHEA 03/28/21 17:45 03/28/21 17:40 Justifications for Admission Other Justification TEE ORTIZ III DO Mar 29, 2021 11:52
--- NOTE | 2021-03-29 13:21 | PDOC ---
PROGRESS NOTES Date of Service DATE: 03/29/21 TIME: 13:11 Subjective Subjective Patient seen and examined in room, he is lying in bed eating lunch. Denies right foot pain. Objective Objective Vital Signs Date Time Temp Pulse Resp B/P (MAP) Pulse Ox O2 Delivery O2 Flow Rate FiO2 03/29/21 11:00 98.3 69 17 101/56 (71) 97 Room Air 98.3 03/28/21 13:51 2.0 Intake and Output 03/29/21 07:00 Intake Total 890 ml Output Total 1900 ml Balance -1010 ml Intake Oral 640 ml IV Total 250 ml Output Urine Total 1900 ml # Bowel Movements 1 Physical Exam Physical Exam Awake and alert HRR Non-labored respirations Right foot: heel wound healing nicely, two small punctate wounds on plantar surface, one is healed completely, second over 5th metatarsal with pink wound bed with palpable bone. There appears to be some coverage of bone since my last examination on 03/25. No purulent drainage. No surrounding erythema. Assessment Assessment Problems Medical Problems: (1) Atrial fibrillation with rapid ventricular response Status: Acute (2) Chest pain Status: Acute (3) Elevated troponin I level Status: Acute (4) Lymphedema of both lower extremities Status: Acute (5) Self-care deficit Status: Acute Plan Plan of Care 70 year old male with PAD and right foot wounds. Angiogram suggests two vessel runoff via PT and peroneal. AT is occluded. Patient has had some improvement in wound healing with local wound care and antibiotics. Foot xray does suggests osteomyelitis right 5th metatarsal bone, this is concerning with exposed bone in the wound for successful healing. Would still consider aggressive local wound care and antibiotics. Patient should have adequate arterial circulation to heal wound with two-vessel runoff to the foot. If patient fails wound healing then patient could potentially have retrograde pedal approach for anterior tibial artery recanalization. In addition would recommend MRI prior to proceeding with any surgical debridement or removal of bone to confirm osteomyelitis. Follow up in [facility]. Strict off-loading right forefoot until wounds have healed. Comment Review of Relevant I have reviewed the following items marlene (where applicable) has been applied. Labs Laboratory Tests Test 03/28/21 05:30 03/28/21 13:37 03/29/21 04:35 White Blood Count 8.3 x10^3/uL (4.0-11.0) 8.8 x10^3/uL (4.0-11.0) Red Blood Count 4.55 x10^6/uL (4.30-5.70) 4.57 x10^6/uL (4.30-5.70) Hemoglobin 12.8 g/dL (13.0-17.5) 12.9 g/dL (13.0-17.5) Hematocrit 39.6 % (39.0-53.0) 39.5 % (39.0-53.0) Mean Corpuscular Volume 87 fL (79-100) 86 fL (79-100) Mean Corpuscular Hemoglobin 28 pg (25-35) 28 pg (25-35) Mean Corpuscular Hemoglobin Concent 32 g/dL (31-37) 33 g/dL (31-37) Red Cell Distribution Width 15.7 % (11.5-14.5) 15.5 % (11.5-14.5) Platelet Count 275 x10^3/uL (140-400) 255 x10^3/uL (140-400) Neutrophils (%) (Auto) 68 % (31-73) 74 % (31-73) Lymphocytes (%) (Auto) 17 % (24-48) 12 % (24-48) Monocytes (%) (Auto) 9 % (0-9) 8 % (0-9) Eosinophils (%) (Auto) 6 % (0-3) 6 % (0-3) Basophils (%) (Auto) 1 % (0-3) 0 % (0-3) Neutrophils # (Auto) 5.6 x10^3/uL (1.8-7.7) 6.5 x10^3/uL (1.8-7.7) Lymphocytes # (Auto) 1.4 x10^3/uL (1.0-4.8) 1.1 x10^3/uL (1.0-4.8) Monocytes # (Auto) 0.7 x10^3/uL (0.0-1.1) 0.7 x10^3/uL (0.0-1.1) Eosinophils # (Auto) 0.5 x10^3/uL (0.0-0.7) 0.5 x10^3/uL (0.0-0.7) Basophils # (Auto) 0.1 x10^3/uL (0.0-0.2) 0.0 x10^3/uL (0.0-0.2) Sodium Level 144 mmol/L (136-145) 144 mmol/L (136-145) Potassium Level 3.4 mmol/L (3.5-5.1) 3.8 mmol/L (3.5-5.1) Chloride Level 105 mmol/L (98-107) 107 mmol/L (98-107) Carbon Dioxide Level 31 mmol/L (21-32) 31 mmol/L (21-32) Anion Gap 8 (6-14) 6 (6-14) Blood Urea Nitrogen 19 mg/dL (8-26) 25 mg/dL (8-26) Creatinine 1.7 mg/dL (0.7-1.3) 1.7 mg/dL (0.7-1.3) Estimated GFR (Cockcroft-Gault) 39.8 39.8 Glucose Level 76 mg/dL (70-99) 79 mg/dL (70-99) Calcium Level 8.2 mg/dL (8.5-10.1) 8.1 mg/dL (8.5-10.1) Activated Clotting Time 239 sec (92-181) Creatine Kinase 26 U/L (39-308) Laboratory Tests Test 03/28/21 13:37 03/29/21 04:35 Activated Clotting Time 239 sec (92-181) White Blood Count 8.8 x10^3/uL (4.0-11.0) Red Blood Count 4.57 x10^6/uL (4.30-5.70) Hemoglobin 12.9 g/dL (13.0-17.5) Hematocrit 39.5 % (39.0-53.0) Mean Corpuscular Volume 86 fL (79-100) Mean Corpuscular Hemoglobin 28 pg (25-35) Mean Corpuscular Hemoglobin Concent 33 g/dL (31-37) Red Cell Distribution Width 15.5 % (11.5-14.5) Platelet Count 255 x10^3/uL (140-400) Neutrophils (%) (Auto) 74 % (31-73) Lymphocytes (%) (Auto) 12 % (24-48) Monocytes (%) (Auto) 8 % (0-9) Eosinophils (%) (Auto) 6 % (0-3) Basophils (%) (Auto) 0 % (0-3) Neutrophils # (Auto) 6.5 x10^3/uL (1.8-7.7) Lymphocytes # (Auto) 1.1 x10^3/uL (1.0-4.8) Monocytes # (Auto) 0.7 x10^3/uL (0.0-1.1) Eosinophils # (Auto) 0.5 x10^3/uL (0.0-0.7) Basophils # (Auto) 0.0 x10^3/uL (0.0-0.2) Sodium Level 144 mmol/L (136-145) Potassium Level 3.8 mmol/L (3.5-5.1) Chloride Level 107 mmol/L (98-107) Carbon Dioxide Level 31 mmol/L (21-32) Anion Gap 6 (6-14) Blood Urea Nitrogen 25 mg/dL (8-26) Creatinine 1.7 mg/dL (0.7-1.3) Estimated GFR (Cockcroft-Gault) 39.8 Glucose Level 79 mg/dL (70-99) Calcium Level 8.1 mg/dL (8.5-10.1) Creatine Kinase 26 U/L (39-308) Microbiology 03/23/21 Gram Stain - Final, Complete 03/23/21 Aerobic and Anaerobic Culture - Final, Complete 03/23/21 Antimicrobic Susceptibility - Final, Complete 03/23/21 Urine Culture - Final, Complete 03/23/21 Antimicrobic Susceptibility - Final, Complete 03/22/21 Blood Culture - Final, Complete NO GROWTH AFTER 5 DAYS Medications Current Medications Aspirin (Aspirin Chewable) 324 mg 1X ONCE PO Last administered on 03/22/21at 12:43; Start 03/22/21 at 12:30; Stop 03/22/21 at 12:31; Status DC Diltiazem HCl (Cardizem Iv Push) 10 mg 1X ONCE IVP Last administered on 03/22/21at 12:44; Start 03/22/21 at 12:15; Stop 03/22/21 at 12:17; Status DC Diltiazem HCl 125 mg/Sodium Chloride 125 ml @ 5 mls/hr CONT PRN IV SEE PROTOCOL; Start 03/22/21 at 13:22; Stop 03/22/21 at 13:45; Status DC Amiodarone HCl 450 mg/Dextrose 259 ml @ 0 mls/hr CONT PRN IV SEE I/O RECORD; Start 03/22/21 at 13:45; Stop 03/23/21 at 13:45; Status DC Sodium Chloride 500 ml @ 500 mls/hr 1X ONCE IV Last administered on 03/22/21at 13:56; Start 03/22/21 at 14:00; Stop 03/22/21 at 14:59; Status DC Enoxaparin Sodium (Lovenox 100mg Syringe) 100 mg 1X ONCE SQ Last administered on 03/22/21at 15:21; Start 03/22/21 at 14:15; Stop 03/22/21 at 14:18; Status DC Ondansetron HCl (Zofran) 4 mg PRN Q8HRS PRN IVP NAUSEA/VOMITING; Start 03/22/21 at 14:30; Stop 03/23/21 at 14:29; Status DC Ondansetron HCl (Zofran) 4 mg PRN Q6HRS PRN IVP NAUSEA/VOMITING; Start 03/22/21 at 16:00 Calcium Carbonate/ Glycine (Tums) 500 mg PRN Q3HRS PRN PO UPSET STOMACH; Start 03/22/21 at 16:00 Zolpidem Tartrate (Ambien) 5 mg PRN QHS PRN PO INSOMNIA, MAY REPEAT IN 1HR; Start 03/22/21 at 16:00 Info (Non-Icu Electrolyte Protocol) 1 ea PRN DAILY PRN MC SEE COMMENTS; Start 03/22/21 at 16:00 Oxycodone HCl (Roxicodone) 5 mg PRN Q3HRS PRN PO BREAKTHROUGH PAIN; Start 03/22/21 at 16:00 Oxycodone/ Acetaminophen (Percocet 5/325) 1 tab PRN Q4HRS PRN PO MILD PAIN, 1ST CHOICE; Start 03/22/21 at 16:00 Oxycodone/ Acetaminophen (Percocet 5/325) 2 tab PRN Q4HRS PRN PO MODERATE PAIN, SEVERE PAIN; Start 03/22/21 at 16:00 Acetaminophen (Tylenol) 650 mg PRN Q6HRS PRN PO Headaches, Temp > 101.5F; Start 03/22/21 at 16:00 Senna/Docusate Sodium (Senna Plus) 1 tab BID PO Last administered on 03/26/21at 21:11; Start 03/22/21 at 21:00 Heparin Sodium (Porcine) (Heparin Sodium) 5,000 unit Q8HRS SQ Last administered on 03/29/21at 06:02; Start 03/22/21 at 22:00 Aspirin (Ecotrin) 81 mg DAILY PO Last administered on 03/29/21at 07:50; Start 03/23/21 at 09:00 Atorvastatin Calcium (Lipitor) 20 mg QHS PO Last administered on 03/28/21 20:38; Start 03/22/21 at 21:00 Latanoprost (Xalatan) 1 drop QHS OU Last administered on 03/28/21at 20:38; Start 03/22/21 at 21:00 Brimonidine Tartrate (Alphagan) 1 drop BID OD Last administered on 03/29/21at 07:52; Start 03/22/21 at 21:00 Timolol Maleate (Timoptic 0.25% [facility]) 1 drop BID OU Last administered on 03/29/21at 07:52; Start 03/22/21 at 21:00 Digoxin (Lanoxin) 250 mcg 1X ONCE IV Last administered on 03/22/21at 17:29; Start 03/22/21 at 16:30; Stop 03/22/21 at 16:31; Status DC Influenza Virus Vaccine Quadrival (Flulaval Quad 1050-1617 Syringe) 0.5 ml ONCE ONCE VAX IM Last administered on 03/23/21at 10:06; Start 03/23/21 at 09:00; Stop 03/23/21 at 09:01; Status DC Metoprolol Tartrate (Lopressor) 25 mg 1X ONCE PO Last administered on 03/23/21at 16:17; Start 03/23/21 at 12:45; Stop 03/23/21 at 12:48; Status DC Metoprolol Tartrate (Lopressor) 25 mg BID PO Last administered on 03/29/21at 07:51; Start 03/23/21 at 21:00 Piperacillin Sod/ Tazobactam Sod 3.375 gm/Sodium Chloride 50 ml @ 100 mls/hr Q6HRS IV Last administered on 03/29/21at 11:09; Start 03/23/21 at 16:00 Vancomycin HCl 1.5 gm/Sodium Chloride 500 ml @ 250 mls/hr Q12H IV ; Start 03/23/21 at 15:45; Status UNV Vancomycin HCl (Vanco Per Pharmacy) 1 each PRN DAILY PRN MC SEE COMMENTS Last administered on 03/27/21at 14:27; Start 03/23/21 at 15:45; Stop 03/28/21 at 10:19; Status DC Piperacillin Sod/ Tazobactam Sod (Zosyn Per Pharmacy) 1 each PRN DAILY PRN MC SEE COMMENTS; Start 03/23/21 at 15:45 Vancomycin HCl 2 gm/Sodium Chloride 500 ml @ 250 mls/hr 1X ONCE IV Last administered on 03/23/21at 18:14; Start 03/23/21 at 17:00; Stop 03/23/21 at 18:59; Status DC Vancomycin HCl 1.5 gm/Sodium Chloride 500 ml @ 250 mls/hr Q18H IV Last administered on 03/24/21at 13:45; Start 03/24/21 at 12:00; Stop 03/25/21 at 06:16; Status DC Vancomycin HCl (Vancomycin Trough Level) 1 each 1X ONCE MC ; Start 03/25/21 at 05:30; Stop 03/25/21 at 05:31; Status DC Furosemide (Lasix) 40 mg 1X ONCE IVP Last administered on 03/23/21at 21:29; Start 03/23/21 at 19:00; Stop 03/23/21 at 19:01; Status DC Furosemide (Lasix) 40 mg DAILY IVP Last administered on 03/29/21at 07:52; Start 03/24/21 at 09:00 Lactobacillus Rhamnosus (Culturelle) 1 cap BID PO Last administered on 03/29/21at 07:50; Start 03/24/21 at 10:00 Amiodarone HCl 150 mg/Dextrose 103 ml @ 600 mls/hr 1X ONCE IV Last administered on 03/24/21at 13:15; Start 03/24/21 at 13:15; Stop 03/25/21 at 09:51; Status DC Amiodarone HCl 450 mg/Dextrose 259 ml @ 33 mls/hr CONT PRN IV SEE I/O RECORD Last administered on 03/25/21at 03:46; Start 03/24/21 at 13:15; Stop 03/25/21 at 09:51; Status DC Vancomycin HCl 1.5 gm/Sodium Chloride 500 ml @ 250 mls/hr Q12H IV ; Start 03/25/21 at 07:00; Status Cancel Amiodarone HCl (Cordarone) 200 mg DAILY PO Last administered on 03/29/21at 07:50; Start 03/25/21 at 10:00 Lidocaine HCl (Buffered Lidocaine 1%) 3 ml STK-MED ONCE .ROUTE ; Start 03/25/21 at 10:20; Stop 03/25/21 at 10:20; Status DC Lidocaine HCl (Buffered Lidocaine 1%) 3 ml 1X ONCE INJ Last administered on 03/25/21at 10:45; Start 03/25/21 at 10:45; Stop 03/25/21 at 10:46; Status DC Vancomycin HCl 1.5 gm/Sodium Chloride 500 ml @ 250 mls/hr Q18H IV Last admin istered on 03/27/21at 17:55; Start 03/25/21 at 11:30; Stop 03/28/21 at 10:19; Status DC Vancomycin HCl (Vancomycin Trough Level) 1 each 1X ONCE MC Last administered on 03/26/21at 23:00; Start 03/26/21 at 23:00; Stop 03/26/21 at 23:01; Status DC Daptomycin 560 mg/ Sodium Chloride 50 ml @ 100 mls/hr Q24H IV Last administered on 03/29/21at 10:14; Start 03/28/21 at 11:00 Iodixanol (Visipaque 320) 100 ml STK-MED ONCE .ROUTE ; Start 03/28/21 at 11:06; Stop 03/28/21 at 11:06; Status DC Lidocaine HCl (Lidocaine 1% 20ml Vial) 20 ml STK-MED ONCE .ROUTE ; Start 03/28/21 at 11:54; Stop 03/28/21 at 11:54; Status DC Heparin Sodium/ Sodium Chloride 1,000 ml @ As Directed STK-MED ONCE .ROUTE ; Start 03/28/21 at 11:54; Stop 03/28/21 at 11:54; Status DC Midazolam HCl (Versed) 5 mg STK-MED ONCE .ROUTE ; Start 03/28/21 at 12:01; Stop 03/28/21 at 12:02; Status DC Fentanyl Citrate (Fentanyl 2ml Vial) 100 mcg STK-MED ONCE .ROUTE ; Start 03/28/21 at 12:02; Stop 03/28/21 at 12:02; Status DC Verapamil HCl (Verapamil) 5 mg STK-MED ONCE .ROUTE ; Start 03/28/21 at 12:02; Stop 03/28/21 at 12:02; Status DC Heparin Sodium (Porcine) (Heparin Sodium) 10,000 unit STK-MED ONCE .ROUTE ; Start 03/28/21 at 12:02; Stop 03/28/21 at 12:02; Status DC Nitroglycerin (Nitroglycerin) 200 mcg STK-MED ONCE .ROUTE ; Start 03/28/21 at 12:03; Stop 03/28/21 at 12:03; Status DC Heparin Sodium/ Sodium Chloride (HEPARIN for ARTERIAL LINE FLUSH) 1,000 unit 1X ONCE IART Last administered on 03/28/21at 13:35; Start 03/28/21 at 12:45; Stop 03/28/21 at 12:46; Status DC Heparin Sodium/ Sodium Chloride (HEPARIN for ARTERIAL LINE FLUSH) 1,000 unit 1X ONCE IART Last administered on 03/28/21at 13:39; Start 03/28/21 at 12:45; Stop 03/28/21 at 12:46; Status DC Midazolam HCl (Versed) 5 mg 1X ONCE IV Last administered on 03/28/21at 13:41; Start 03/28/21 at 12:45; Stop 03/28/21 at 12:46; Status DC Fentanyl Citrate (Fentanyl 2ml Vial) 100 mcg 1X ONCE IV Last administered on 03/28/21at 13:41; Start 03/28/21 at 12:45; Stop 03/28/21 at 12:46; Status DC Iodixanol (Visipaque 320) 100 ml 1X ONCE IART Last administered on 03/28/21at 13:39; Start 03/28/21 at 12:45; Stop 03/28/21 at 12:46; Status DC Lidocaine HCl (Lidocaine 1% 20ml Vial) 20 ml 1X ONCE INJ Last administered on 03/28/21at 13:39; Start 03/28/21 at 12:45; Stop 03/28/21 at 12:46; Status DC Info (CONTRAST GIVEN -- Rx MONITORING) 1 each PRN DAILY PRN MC SEE COMMENTS; Start 03/28/21 at 12:45; Stop 03/30/21 at 12:44 Heparin Sodium (Porcine) (Heparin Sodium) 5,000 unit 1X ONCE IV Last administered on 03/28/21at 13:42; Start 03/28/21 at 13:00; Stop 03/28/21 at 13:02; Status DC Heparin Sodium/ Sodium Chloride 500 ml @ As Directed STK-MED ONCE .ROUTE ; Start 03/28/21 at 13:44; Stop 03/28/21 at 13:45; Status DC Potassium Chloride (Klor-Con) 40 meq 1X ONCE PO Last administered on 03/28/21at 16:32; Start 03/28/21 at 15:15; Stop 03/28/21 at 15:16; Status DC Loperamide HCl (Imodium) 2 mg PRN Q15MIN PRN PO DIARRHEA Last administered on 03/28/21at 17:40; Start 03/28/21 at 17:45 Verapamil HCl (Verapamil) 5 mg STK-MED ONCE .ROUTE ; Start 03/28/21 at 12:30; Stop 03/29/21 at 08:54; Status DC Active Scripts Active Atorvastatin Calcium 20 Mg Tablet 20 Mg PO QHS Reported Aspirin Ec (Aspirin) 81 Mg Tablet.dr 1 Tab PO DAILY Combigan Eye Drops (Brimonidine Tartrate/Timolol) 5 Ml Drops 5 Ml OP BID Latanoprost 2.5 Ml Drops 1 Drop EACHEYE QHS Vitals/I & O Vital Sign - Last 24 Hours 03/28/21 03/28/21 03/28/21 03/28/21 13:41 13:51 14:15 14:23 Temp 98.3 98.3 Pulse 81 72 66 Resp 19 19 18 B/P (MAP) 141/76 (97) 141/76 (97) Pulse Ox 98 98 96 O2 Delivery Nasal Cannula Nasal Cannula Room Air O2 Flow Rate 2.0 2.0 03/28/21 03/28/21 03/28/21 03/28/21 14:30 14:45 15:00 15:15 Pulse 72 67 66 66 B/P (MAP) 152/76 (101) 150/79 (102) 160/78 (105) 150/77 (101) Pulse Ox 97 97 99 O2 Delivery Room Air Room Air Room Air 03/28/21 03/28/21 03/28/21 03/28/21 15:30 15:45 16:00 16:15 Pulse 72 70 69 72 B/P (MAP) 134/76 (95) 133/67 (89) 121/66 (84) 138/71 (93) Pulse Ox 97 98 96 96 O2 Delivery Room Air Room Air Room Air Room Air 03/28/21 03/28/21 03/28/21 03/28/21 16:45 17:15 18:15 19:25 Temp 99.2 99.2 Pulse 85 78 79 76 Resp 20 B/P (MAP) 177/102 (127) 150/81 (104) 130/69 (89) 147/78 (101) Pulse Ox 96 94 92 99 O2 Delivery Room Air Room Air Room Air Room Air 03/28/21 03/28/21 03/28/21 03/29/21 20:00 20:41 23:25 03:25 Temp 98.0 98.1 98.0 98.1 Pulse 88 73 67 Resp 20 18 B/P (MAP) 137/63 103/58 (73) 107/55 (72) Pulse Ox 93 95 O2 Delivery Room Air Room Air Room Air 03/29/21 03/29/21 03/29/21 03/29/21 07:00 07:50 07:51 08:00 Temp 98.3 98.3 Pulse 74 79 65 Resp 17 B/P (MAP) 127/63 (84) 127/63 127/63 Pulse Ox 95 O2 Delivery Room Air Room Air 03/29/21 11:00 Temp 98.3 98.3 Pulse 69 Resp 17 B/P (MAP) 101/56 (71) Pulse Ox 97 O2 Delivery Room Air Intake and Output 03/28/21 03/28/21 03/29/21 15:00 23:00 07:00 Intake Total 0 ml 540 ml 350 ml Output Total 350 ml 1250 ml 300 ml Balance -350 ml -710 ml 50 ml Justifications for Admission Other Justification FABRICE PERAZA APRN Mar 29, 2021 13:21
[2021-03-29 15:00] VITALS: BP 121/66
--- NOTE | 2021-03-29 15:49 | NUR ---
SS following up with discharge planning. SS reviewed pt chart and discussed with pt RN. Pt is currently on room air. COVID19 negative. Pt on IV Daptomycin and IV Zosyn. Extensive wound care. PICC in place. SS phoned and faxed [facility], ; fax [phone], due to extensive need for wound care and IV antibiotics. SS will continue to follow for discharge planning.
[2021-03-29 19:40] VITALS: BP 132/68
[2021-03-29] MEDS: ATORVASTATIN CALCIUM 20 MG TABLET PO SCH (21:15)
[2021-03-29] MEDS: LATANOPROST 0.005% OPHTH SOLUTION 2.5ML BOTTLE. OU SCH (21:16)
[2021-03-29 22:40] VITALS: BP 119/64
--- NOTE | 2021-03-29 23:08 | PDOC ---
CARDIOLOGY PROGRESS NOTE SUBJECTIVE: No acute events overnight. No foot pain No dyspnea, No chest pain. He is eating comfortably in bed. OBJECTIVE: Vital Signs/I&O: Vital Signs Date Time Temp Pulse Resp B/P (MAP) Pulse Ox O2 Delivery O2 Flow Rate FiO2 03/29/21 21:15 77 132/68 03/29/21 19:55 Room Air 03/29/21 19:40 98.9 20 96 98.9 03/28/21 13:51 2.0 I & O 03/28/21 03/28/21 03/29/21 15:00 23:00 07:00 Intake Total 0 ml 540 ml 350 ml Output Total 350 ml 1250 ml 300 ml Balance -350 ml -710 ml 50 ml Objective: PHYSICAL EXAM General: Alert, Oriented X3, Cooperative, No acute distress HEENT: Atraumatic, Mucous membr. moist/pink Lungs: Clear to auscultation, Normal air movement Heart: Regular rate (Atrial paced), Other (distant heart sounds) Abdomen: Soft, No tenderness, Other (obese) Extremities: No cyanosis, Other (LE lymphedema weeping has resolved. Skin: Other (LE venous dermaititis, chronic lyphemdema with right foot erythema) Neuro: Normal speech, Sensation intact Psych/Mental Status: Mental status NL, Mood NL MUSCULOSKELETAL: Osteoarthritic changes both hands CURRENT MEDICATIONS: Amio, lasix, metoprolol, atorvastatin, asa. DIAGNOSTIC TESTING: Labs: Laboratory Tests 03/29/21 04:35 Laboratory Tests Test 03/29/21 04:35 White Blood Count 8.8 x10^3/uL (4.0-11.0) Red Blood Count 4.57 x10^6/uL (4.30-5.70) Hemoglobin 12.9 g/dL (13.0-17.5) L Hematocrit 39.5 % (39.0-53.0) Mean Corpuscular Volume 86 fL (79-100) Mean Corpuscular Hemoglobin 28 pg (25-35) Mean Corpuscular Hemoglobin Concent 33 g/dL (31-37) Red Cell Distribution Width 15.5 % (11.5-14.5) H Platelet Count 255 x10^3/uL (140-400) Neutrophils (%) (Auto) 74 % (31-73) H Lymphocytes (%) (Auto) 12 % (24-48) L Monocytes (%) (Auto) 8 % (0-9) Eosinophils (%) (Auto) 6 % (0-3) H Basophils (%) (Auto) 0 % (0-3) Neutrophils # (Auto) 6.5 x10^3/uL (1.8-7.7) Lymphocytes # (Auto) 1.1 x10^3/uL (1.0-4.8) Monocytes # (Auto) 0.7 x10^3/uL (0.0-1.1) Eosinophils # (Auto) 0.5 x10^3/uL (0.0-0.7) Basophils # (Auto) 0.0 x10^3/uL (0.0-0.2) Sodium Level 144 mmol/L (136-145) Potassium Level 3.8 mmol/L (3.5-5.1) Chloride Level 107 mmol/L (98-107) Carbon Dioxide Level 31 mmol/L (21-32) Anion Gap 6 (6-14) Blood Urea Nitrogen 25 mg/dL (8-26) Creatinine 1.7 mg/dL (0.7-1.3) H Estimated GFR (Cockcroft-Gault) 39.8 Glucose Level 79 mg/dL (70-99) Calcium Level 8.1 mg/dL (8.5-10.1) L Creatine Kinase 26 U/L (39-308) L ASSESSMENT: ASSESSMENT: 1. PAF 2. HTN 3. Diastolic HF 4. PAD with chronic lymphedema and venous stasis. PLAN: 1. Continue b-fernanda and amio 2. Will start low dose eliquis given afib, presently in SR. No surgical plans. 3. He has preserved LV function. Change to lasix 40mg daily. Supportive care with close outpt f/u. Thanks Justicifation of Admission Dx: Justifications for Admission: Justification of Admission Dx: MATY Sanchez MD Mar 29, 2021 23:08
[2021-03-29] MEDS: ANTI-COAG MONITOR BY PHARMACY. MC PRN (23:50)
[2021-03-30 03:00] VITALS: BP 117/68
[2021-03-30] MEDS: PIPERACILLIN/TAZOBACTAM 3.375 GM in IV NORMAL SALINE 50ML 50 ML IV SCH ×3 (05:14→17:11)
[2021-03-30 05:28] LABS: BASO % 0 % (0-3); EOS # 0.7 x10^3/uL (0.0-0.7); EOS % 7 % (0-3); HEMATOCRIT 38.9 % (39.0-53.0); HEMOGLOBIN 12.8 g/dL (13.0-17.5); LYMPH # 1.6 x10^3/uL (1.0-4.8); LYMPH % 17 % (24-48); MEAN CORPUSCULAR HEMOGLOBIN 29 pg (25-35); MEAN CORPUSCULAR HGB CONC 33 g/dL (31-37); MEAN CORPUSCULAR VOLUME 87 fL (79-100); MONO # 0.7 x10^3/uL (0.0-1.1); MONO % 8 % (0-9); NEUT # 6.4 x10^3/uL (1.8-7.7); NEUT % 68 % (31-73); PLATELET COUNT 244 x10^3/uL (140-400); RED BLOOD COUNT 4.48 x10^6/uL (4.30-5.70); RED CELL DISTRIBUTION WIDTH 16.1 % (11.5-14.5); WHITE BLOOD COUNT 9.4 x10^3/uL (4.0-11.0)
[2021-03-30 05:44] LABS: CALCIUM 8.3 mg/dL (8.5-10.1); CREATININE 1.8 mg/dL (0.7-1.3); GFR 37.3; POTASSIUM 3.4 mmol/L (3.5-5.1)
[2021-03-30 07:00] VITALS: BP 146/70
[2021-03-30] MEDS: LACTOBACILLUS RHAMNOSUS GG 1 CAPSULE. PO SCH ×2 (08:18→20:51)
[2021-03-30] MEDS: AMIODARONE HCL 200 MG TABLET. PO SCH (08:18)
[2021-03-30] MEDS: FUROSEMIDE 40 MG TABLET. PO SCH (08:18)
[2021-03-30] MEDS: APIXABAN 2.5 MG TABLET. PO SCH ×2 (08:18→20:52)
[2021-03-30] MEDS: ASPIRIN ENTERIC COATED 81 MG TABLET.DR. PO SCH (08:18)
[2021-03-30] MEDS: METOPROLOL TART IMMED RELEASE 25 MG TABLET. PO SCH ×2 (08:19→20:51)
[2021-03-30] MEDS: BRIMONIDINE 0.2% OPHTH SOLUTION 5ML BOTTLE. OD SCH ×2 (08:19→20:50)
[2021-03-30] MEDS: TIMOLOL 0.25% OPHTH SOLUTION 5ML BOTTLE. OU SCH ×2 (08:19→20:50)
[2021-03-30] MEDS: SENNOSIDES/DOCUSATE 8.6/50MG TABLET. PO SCH ×2 (08:20→18:25)
--- NOTE | 2021-03-30 08:56 | PDOC ---
Infectious Disease Note Subjective: Subjective Patient without complaints Vital Signs: Vital Signs Vital Signs Date Time Temp Pulse Resp B/P (MAP) Pulse Ox O2 Delivery O2 Flow Rate FiO2 03/30/21 08:19 76 146/70 03/30/21 08:00 Room Air 03/30/21 07:00 98.9 16 98 98.9 Physical Exam: PHYSICAL EXAM GENERAL: Alert, oriented x3 male, lying in bed comfortably, in no acute distress. HEENT: Normocephalic, atraumatic. Anicteric. No thrush. Oral mucosa moist. NECK: Supple, no JVD. LUNGS: Clear bilaterally. No wheezing. HEART: S1, S2. No gallops or murmurs. Chest wall PPM site looks okay. ABDOMEN: Soft, obese. Bowel sounds present. Positive bowel sounds. EXTREMITIES: Bilateral chronic lymphedema and venous stasis. SKIN: Plantar surface on the right foot dressing taken down. Two small wounds. Lateral wound packed, probes through the bone. Wound is clean and healthy. No surrounding redness. No gross purulence. Heel ulcer is clean superficial. NEUROLOGIC: Alert, oriented x 3, grossly nonfocal. PSYCHIATRIC: Calm and cooperative. Medications: Inpatient Meds: Medications reviewed. Labs: Lab Laboratory Tests Test 03/30/21 05:15 White Blood Count 9.4 x10^3/uL (4.0-11.0) Red Blood Count 4.48 x10^6/uL (4.30-5.70) Hemoglobin 12.8 g/dL (13.0-17.5) Hematocrit 38.9 % (39.0-53.0) Mean Corpuscular Volume 87 fL (79-100) Mean Corpuscular Hemoglobin 29 pg (25-35) Mean Corpuscular Hemoglobin Concent 33 g/dL (31-37) Red Cell Distribution Width 16.1 % (11.5-14.5) Platelet Count 244 x10^3/uL (140-400) Neutrophils (%) (Auto) 68 % (31-73) Lymphocytes (%) (Auto) 17 % (24-48) Monocytes (%) (Auto) 8 % (0-9) Eosinophils (%) (Auto) 7 % (0-3) Basophils (%) (Auto) 0 % (0-3) Neutrophils # (Auto) 6.4 x10^3/uL (1.8-7.7) Lymphocytes # (Auto) 1.6 x10^3/uL (1.0-4.8) Monocytes # (Auto) 0.7 x10^3/uL (0.0-1.1) Eosinophils # (Auto) 0.7 x10^3/uL (0.0-0.7) Basophils # (Auto) 0.0 x10^3/uL (0.0-0.2) Sodium Level 144 mmol/L (136-145) Potassium Level 3.4 mmol/L (3.5-5.1) Chloride Level 108 mmol/L (98-107) Carbon Dioxide Level 31 mmol/L (21-32) Anion Gap 5 (6-14) Blood Urea Nitrogen 27 mg/dL (8-26) Creatinine 1.8 mg/dL (0.7-1.3) Estimated GFR (Cockcroft-Gault) 37.3 Glucose Level 84 mg/dL (70-99) Calcium Level 8.3 mg/dL (8.5-10.1) Micro RUN DATE: 03/28/21 [facility] LAB *LIVE* PAGE 1 RUN TIME: 924 Specimen Inquiry PATIENT: JOSE MERCADO ACCT: [id number] LOC: [address] [place] [address] U: [id number] AGE/SX: 70/M ROOM: [facility] RE03/22/[address]: TEE ORTIZ III DO : 1950 BED: 1 DIS: STATUS: ADM IN TLOC: SPEC #: [id number] YENI: 03/23/21 STATUS: COMP REQ #: [id number] RECD: 03/23/[address] [facility] [address]: TEE ORTIZ III, DO SOURCE: FOOT ENTR: 03/23/[address]: JODI CARABALLO DO [facility]: RIGHT NAVARRO JJ MD,MATY BRO,CURTIS Conrad MD NO PCP ORDERED: ANAER/AEROB/GS COMMENTS: Has specimen been collected/obtained R 5TH TOE WOUND Procedure Result GRAM STAIN Final Final GRAM NEGATIVE RODS:MANY GRAM POSITIVE COCCI:MANY SQUAMOUS EPI CELL:FEW PMN (WBCs):MODERATE Unless otherwise specified, Testing Performed by: [address] [address] For Inquires, the Physician may contact the Microbiology department at [phone] ANAEROBIC-AEROBIC CULTURE Final Final MIXED AEROBIC AND ANAEROBIC GUALBERTO on 03/25/21 at 1210 INCLUDING: FEW GRAM NEGATIVE RODS on 03/24/21 at 0901 FINAL ID= [PROTEUS MIRABILIS[id number] RARE [STAPHYLOCOCCUS EPIDERMIDIS] FEW [CORYNEBACTERIUM AMYCOLATUM] FEW [ENTEROCOCCUS AVIUM] MODERATE [BACTEROIDES THETAIOTAOMICRON G] MODERATE [ANAEROCOCCUS VAGINALIS] MANY [PREVOTELLA SPECIES] PROTEUS MIRABILIS STAPHYLOCOCCUS EPIDERMIDIS CORYNEBACTERIUM AMYCOLATUM ENTEROCOCCUS AVIUM BACTEROIDES THETAIOTAOMICRON G ANAEROCOCCUS VAGINALIS PREVOTELLA SPECIES Unless otherwise specified, Testing Performed by: [facility] [address] [place] [address] -------- ---- RUN DATE: 03/28/21 [facility] *LIVE* PAGE 2 RUN TIME: 924 Specimen Inquiry SPEC: [id number] PATIENT: JOSE MERCADO [id number] (Continued) Procedure Result CONTINUED ON NEXT PAGE RUN DATE: 03/28/21 [facility] LAB *LIVE* PAGE 3 RUN TIME: 0925 Specimen Inquiry --------- --- SPEC: [id number] PATIENT: JOSE MERCADO [id number] (Continued) Procedure Result ANAEROBIC-AEROBIC CULTURE Final (continued) For Inquires, the Physician may contact the Microbiology department at [phone] RUN DATE: 03/28/21 [facility] LAB *LIVE* PAGE 1 RUN TIME: 0920 Specimen Inquiry PATIENT: JOSE MERCADO ACCT: [id number] LOC: [address] [place] [address] U: [id number] AGE/SX: 70/M ROOM: 665 RE03/22/[address]: TEE ORTIZ III, DO : 1950 BED: 1 DIS: STATUS: ADM IN TLOC: SPEC #: [id number] YENI: 03/23/21 STATUS: COMP REQ #: [id number] RECD: 03/23/[address]: TEE ORTIZ III, DO SOURCE: FOOT ENTR: 03/23/[address]: JODI CARABALLO DO SPDESC: WOUND АННА,NAVARRO DIAZ,MATY BRO,CURTIS Conrad MD NO PCP ORDERED: ANAER/AERCITLALI/DAKOTA COMMENTS: Has specimen been collected/obtained? Y R HEEL WOUND Procedure Result GRAM STAIN Final Final GRAM NEGATIVE RODS:RARE GRAM POSITIVE COCCI:RARE RBC:MODERATE SQUAMOUS EPI CELL:RARE PMN (WBCs):RARE Unless otherwise specified, Testing Performed by: [address] [address] For Inquires, the Physician may contact the Microbiology department at [phone] ANAEROBIC-AEROBIC CULTURE Final Final MIXED AEROBIC AND ANAEROBIC GUALBERTO on 03/25/21 at 1206 INCLUDING: FEW GRAM NEGATIVE RODS on 03/24/21 at 0855 FINAL ID= [PROTEUS MIRABILIS] FEW [BACTEROIDES OVATUS GROUP] on 03/25/21 at 1206 MODERATE [ANAEROCOCCUS VAGINALIS] on 03/25/21 at 1207 FEW Mixed skin gualberto isolated on 03/27/21 at 1055 PROTEUS MIRABILIS UNIDENTIFIED ORGANISM BACTEROIDES OVATUS GROUP ANAEROCOCCUS VAGINALIS ANTIMICROBIAL SUSCEPTIBILITY Final Comment NEG [place] 56 PROTEUS MIRABILIS ANTIBIOTIC RESULT INTERPRETATION AMPICILLIN/SULBACTAM <=4/2 S AMIKACIN <=16 S RUN DATE: 03/28/21 [facility] LAB *LIVE* PAGE 2 RUN TIME: 0920 Specimen Inquiry SPEC: [id number] PATIENT: JOSE MERCADO [id number] (Continued) --- --------- Procedure Result CONTINUED ON NEXT PAGE RUN DATE: 03/28/21 [facility] LAB *LIVE* PAGE 3 RUN TIME: 0920 Specimen Inquiry SPEC: [id number] PATIENT: JOSE MERCADO [id number] (Continued) Procedure Result ANTIMICROBIAL SUSCEPTIBILITY Final (continued) AMPICILLIN <=8 S AMOXICILLIN/K CLAVULANATE <=8/4 S AZTREONAM <=4 S CEFTRIAXONE <=1 S CEFTAZIDIME <=1 S CEFOTAXIME <=2 S CEFOXITIN <=8 S CEFAZOLIN <=2 S CIPROFLOXACIN <=0.25 S CEFEPIME <=2 S CEFUROXIME <=4 S CEFTAZIDIME/AVIBACTAM <=4 S ERTAPENEM <=0.5 S GENTAMICIN <=2 S LEVOFLOXACIN <=0.5 S MEROPENEM <=1 S PIPERACILLIN/TAZOBACTAM <=8 S TRIMETHOPRIM/SULFAMETHOXAZOLE <=0.5/9.5 S TETRACYCLINE <=4 R* TOBRAMYCIN <=2 S Unless otherwise specified, Testing Performed by: [address] [address] For Inquires, the Physician may contact the Microbiology department at [phone] Objective: Assessment: Chronic right fifth metatarsal nonhealing wound, Foot xray suggests osteomyelitis right 5th metatarsal bone,concern for adequate healing with exposed bone Follow-up cultures polymicrobial including Proteus mirabilis and Enterococcus avium Discussed with micro lab Enterococcus avium susceptibilities are not available due to polymicrobial growth on cultures PAD Chronic right plantar ulcerations, Chronic lymphedema, chronic venous stasis, atrial fibrillation,status post PPM, CHF, hypertension, hyperlipidemia, osteoarthritis, chest pain, elevated troponin poa, self-care deficit. 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 via antegrade approach March 28, 2021 Swab cultures MODERATE [BACTEROIDES THETAIOTAOMICRON G] MODERATE [ANAEROCOCCUS VAGINALIS] MANY [PREVOTELLA SPECIES] PROTEUS MIRABILIS STAPHYLOCOCCUS EPIDERMIDIS CORYNEBACTERIUM AMYCOLATUM ENTEROCOCCUS AVIUM BACTEROIDES THETAIOTAOMICRON G ANAEROCOCCUS VAGINALIS PREVOTELLA SPECIES Plan: Plan of Care Continue daptomycin and Zosyn Monitor labs and cultures When ready for discharge patient will need daptomycin and IV Invanz, first dose of Invanz here before discharge Continue local wound care as directed Strict offload If patient does not get optimal response with above antibiotic treatment will need surgical debridement Vascular recommendations reviewed. MRI prior to proceeding with any surgical d ebridement or removal of bone to confirm osteomyelitis. 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
[2021-03-30 11:00] VITALS: BP 115/61
[2021-03-30] MEDS: DAPTOmycin (GENERIC) IVPB 560 MG in IV NORMAL SALINE 50ML 50 ML IV SCH (11:05)
--- NOTE | 2021-03-30 11:07 | PDOC ---
[employer] PROGRESS NOTE Date of Service DOS: DATE: 03/30/21 TIME: 11:05 Chief Complaint Chief Complaint Atrial fibrillation with RVR CHF HTN HLP Osteoarthritis BL extremity chronic wounds and ulcers Chronic Lymphedema Chronic venous stasis Right fifth metatarsal, possible osteomyelitis Inability to care for self ANTWAN (unknown baseline) Severe malnutrition History of Present Illness History of Present Illness 03/30 Pt seen and examined Charts reviewed No acute overnight events noted Discussed plan of care Pt has no complaints PICC line in place SHAUN and TRISTIAN 03/29 Patient examined and seen at bedside No acute overnight events Discussed results of aortogram Pt currently has no complaints PICC line in place Lower extremities examined Charts reviewed Discussed case with RN and TRISTIAN 03/28 Patient seen and examined at bedside No acute overnight events Discussed care of patient's lower extremities Pt has no complaints PICC line in place Lower extremities examined Chart reviewed SHAUN and TRISTIAN 03/27 Pt seen and examined No acute overnight events Discussed current plan of care with pt Pt states he is feeling fine and has no complaints PICC line in place Lower extremities examined Pt in regular rhythm Charts reviewed Discussed with RN 03/26 Patient seen and examined at bedside No acute overnight events noted PICC line in place Pt is in regular rhythm Pt's lower extremities seen by WC, podiatry, and vascular surgery Vascular surgery recommending conservative management Charts reviewed SHAUN and TRISTIAN 03/25 Patient examined and seen at bedside No acute overnight events Pt in regular rhythm at time of exam Pt's LE extremities examined Discussed pt's living situation Charts reviewed Discussed with OT Discussed with RN and TRISTIAN 03/24 Pt seen and examined No acute overnight changes A. Fib present, but rate well controlled (70-90s) Charts Reviewed ROSE MARIE and TRISTIAN 03/23 Patient seen and examined at bedside Pt comfortably resting at time of exam, NAD A. Fib noted on tele, rate well controlled (70-80s) Charts Reviewed Case discussed with RN and social service technician Vitals/I&O Vitals/I&O: Vital Signs Date Time Temp Pulse Resp B/P (MAP) Pulse Ox O2 Delivery O2 Flow Rate FiO2 03/30/21 08:19 76 146/70 03/30/21 08:00 Room Air 03/30/21 07:00 98.9 16 98 98.9 I & O 03/29/21 03/29/21 03/30/21 15:00 23:00 07:00 Intake Total 200 ml 300 ml 150 ml Output Total 250 ml 250 ml 200 ml Balance -50 ml 50 ml -50 ml Physical Exam Physical Exam: GENERAL: Alert, oriented x3 male, lying in bed comfortably, in no acute distress. HEENT: Normocephalic, atraumatic. Anicteric. No thrush. Oral mucosa moist. NECK: Supple, no JVD. LUNGS: Clear bilaterally. No wheezing. HEART: RRR, S1, S2. No gallops or murmurs. Chest wall PPM site looks okay. ABDOMEN: Soft, obese. Bowel sounds present. Positive bowel sounds. EXTREMITIES: Bilateral chronic lymphedema and venous stasis. SKIN: Plantar surface on the right foot dressing taken down. Two small wounds. Lateral wound packed, probes through the bone. Wound is clean and healthy. No surrounding redness. No gross purulence. Heel ulcer is clean superficial. NEUROLOGIC: Alert, oriented x 3, grossly nonfocal. PSYCHIATRIC: Calm and cooperative. General: Alert, Oriented X3, Cooperative, No acute distress Heart: Regular rate, Normal S1, Normal S2, Other (distant heart sounds, Irregularly irregular) Lungs: Clear Abdomen: Soft, No tenderness, Other (obese) Extremities: No cyanosis, Other (LE lymphedema weeping) Skin: Other (LE venous dermaititis, chronic lyphemdema with right foot erythema) Labs Labs: Laboratory Tests Test 03/30/21 05:15 White Blood Count 9.4 x10^3/uL (4.0-11.0) Red Blood Count 4.48 x10^6/uL (4.30-5.70) Hemoglobin 12.8 g/dL (13.0-17.5) Hematocrit 38.9 % (39.0-53.0) Mean Corpuscular Volume 87 fL (79-100) Mean Corpuscular Hemoglobin 29 pg (25-35) Mean Corpuscular Hemoglobin Concent 33 g/dL (31-37) Red Cell Distribution Width 16.1 % (11.5-14.5) Platelet Count 244 x10^3/uL (140-400) Neutrophils (%) (Auto) 68 % (31-73) Lymphocytes (%) (Auto) 17 % (24-48) Monocytes (%) (Auto) 8 % (0-9) Eosinophils (%) (Auto) 7 % (0-3) Basophils (%) (Auto) 0 % (0-3) Neutrophils # (Auto) 6.4 x10^3/uL (1.8-7.7) Lymphocytes # (Auto) 1.6 x10^3/uL (1.0-4.8) Monocytes # (Auto) 0.7 x10^3/uL (0.0-1.1) Eosinophils # (Auto) 0.7 x10^3/uL (0.0-0.7) Basophils # (Auto) 0.0 x10^3/uL (0.0-0.2) Sodium Level 144 mmol/L (136-145) Potassium Level 3.4 mmol/L (3.5-5.1) Chloride Level 108 mmol/L (98-107) Carbon Dioxide Level 31 mmol/L (21-32) Anion Gap 5 (6-14) Blood Urea Nitrogen 27 mg/dL (8-26) Creatinine 1.8 mg/dL (0.7-1.3) Estimated GFR (Cockcroft-Gault) 37.3 Glucose Level 84 mg/dL (70-99) Calcium Level 8.3 mg/dL (8.5-10.1) Review of Systems Review of Systems: ROS negative Assessment and Plan Assessmemt and Plan Problems Medical Problems: (1) Atrial fibrillation with rapid ventricular response Status: Acute (2) Chest pain Status: Acute (3) Elevated troponin I level Status: Acute (4) Lymphedema of both lower extremities Status: Acute (5) Self-care deficit Status: Acute BL extremity chronic wounds and ulcers Chronic Lymphedema Atrial fibrillation with RVR CHF HTN HLP Osteoarthritis Chronic venous stasis Right fifth metatarsal, possible osteomyelitis Inability to care for self ANTWAN (unknown baseline) Severe malnutrition Plan - Infectious Disease, Vascular surgery, Cardiology, Podiatry and WC input greatly appreciated - Cardiology following A. Fib (currently resolved), continuing amiodarone and metoprolol -Continue Eliquis 2.5 twice daily - Vascular surgery, podiatry, and WC following lower extremity care - Aortogram performed 03/28. R. anterior tibial artery proximally occluded. Considering eventual retrograde pedal approach if not healing. (We will likely do this after he gets out of prison) - Vascular surgery considering MRI prior to debridement - ID following - Antibiotics per ID - Per ID, Pt will need 1x dose IV Invanz and daptomycin prior to discharge - PICC line in place - Continue monitoring on Telemetry - Continue Zosyn - Daily ASA - Serial enzymes - Serial EKGs - Continue to monitor cultures - PT/OT ordered -Home meds - DVT prophylaxis - Cardiac diet - Full Code Discharge disposition pending, currently accepted to [facility] (awaiting insurance approval) Comment Review of Relevant I have reviewed the following items marlene (where applicable) has been applied. Medications: Current Medications Medications (Trade) Dose Ordered Sig/Placido Route PRN Reason Start Time Stop Time Status Last Admin Dose Admin Apixaban (Eliquis) 2.5 mg BID PO 03/30/21 09:00 03/30/21 08:18 Furosemide (Lasix) 40 mg DAILY PO 03/30/21 09:00 03/30/21 08:18 Info (Anti-Coagulation Monitoring By Pharmacy) 1 each PRN DAILY PRN MC PER PROTOCOL 03/29/21 23:15 03/29/21 23:50 Justifications for Admission Other Justification TEE ORTIZ III DO Mar 30, 2021 11:07
--- NOTE | 2021-03-30 11:58 | PDOC ---
DORIS CHRISTIAN ARMEN 03/30/21 1158: CARDIO Progress Notes Date and Time Date of Service 03/30/21 Time of Evaluation 1200 Subjective Subjective: No Chest Pain, No shortness of breath, No Palpitations Vitals Vitals Vital Signs Date Time Temp Pulse Resp B/P (MAP) Pulse Ox O2 Delivery O2 Flow Rate FiO2 03/30/21 11:00 98.5 68 16 115/61 (79) 97 Room Air 98.5 Weight Weight [ ] Input and Output Intake and Output Intake and Output 03/30/21 07:00 Intake Total 650 ml Output Total 700 ml Balance -50 ml Intake Oral 600 ml IV Total 50 ml Output Urine Total 700 ml # Voids 1 Laboratory Labs Laboratory Tests Test 03/30/21 05:15 White Blood Count 9.4 x10^3/uL (4.0-11.0) Red Blood Count 4.48 x10^6/uL (4.30-5.70) Hemoglobin 12.8 g/dL (13.0-17.5) Hematocrit 38.9 % (39.0-53.0) Mean Corpuscular Volume 87 fL (79-100) Mean Corpuscular Hemoglobin 29 pg (25-35) Mean Corpuscular Hemoglobin Concent 33 g/dL (31-37) Red Cell Distribution Width 16.1 % (11.5-14.5) Platelet Count 244 x10^3/uL (140-400) Neutrophils (%) (Auto) 68 % (31-73) Lymphocytes (%) (Auto) 17 % (24-48) Monocytes (%) (Auto) 8 % (0-9) Eosinophils (%) (Auto) 7 % (0-3) Basophils (%) (Auto) 0 % (0-3) Neutrophils # (Auto) 6.4 x10^3/uL (1.8-7.7) Lymphocytes # (Auto) 1.6 x10^3/uL (1.0-4.8) Monocytes # (Auto) 0.7 x10^3/uL (0.0-1.1) Eosinophils # (Auto) 0.7 x10^3/uL (0.0-0.7) Basophils # (Auto) 0.0 x10^3/uL (0.0-0.2) Sodium Level 144 mmol/L (136-145) Potassium Level 3.4 mmol/L (3.5-5.1) Chloride Level 108 mmol/L (98-107) Carbon Dioxide Level 31 mmol/L (21-32) Anion Gap 5 (6-14) Blood Urea Nitrogen 27 mg/dL (8-26) Creatinine 1.8 mg/dL (0.7-1.3) Estimated GFR (Cockcroft-Gault) 37.3 Glucose Level 84 mg/dL (70-99) Calcium Level 8.3 mg/dL (8.5-10.1) Microbiology Micro Microbiology 03/23/21 Gram Stain - Final, Complete 03/23/21 Aerobic and Anaerobic Culture - Final, Complete 03/23/21 Antimicrobic Susceptibility - Final, Complete 03/23/21 Urine Culture - Final, Complete 03/23/21 Antimicrobic Susceptibility - Final, Complete 03/22/21 Blood Culture - Final, Complete NO GROWTH AFTER 5 DAYS Physical Exam HEENT: Neck Supple W Full Motion Chest: Symmetric LUNGS: Clear to Auscultation Heart: RRR (SR with intermittent atrial pacing) Abdomen: Soft N/T, Other (obese) Extremities: Other (chronic LE lymphedema, drsg intact to right foot ) Neurology: alert, oriented, follow commands Assessment Assessment 1. PAF; presently SR 2. HTN 3. Diastolic HF 4. 1. PAFIB; Maintaining SR 2. Chronic diastolic CHF: compensated. 3. Hypertension 3. CAD: no past intervention, clinically stable 5. PAD with chronic lymphedema and venous stasis. 6. SSS with PPM (Biotronik) 7. CKD 8. HLP 9. Mild troponin elevation: 0.1 suspect demand mediated likely due to RVR Recommendations Continue metoprolol for rate control and amiodarone for rhythm maintenance Low-dose Eliquis for stroke prophylaxis. Lasix therapy Secondary prevention Discussed/encouraged compliance Supportive care Justicifation of Admission Dx: Justifications for Admission: Justification of Admission Dx: No MATY DIAZ MD 03/30/211906: CARDIO Progress Notes Plan Plan The patient was seen and interviewed as well as examined at the bedside. The chart was reviewed. The case was discussed. Agree with the plan of care. DORIS CHRISTIAN APRN Mar 30, 2021 11:58 MATY DIAZ MD Mar 30, 2021 19:07
[2021-03-30] MEDS ORDERED: POTASSIUM CHLORIDE 20 MEQ TABLET.ER. PO ONE (12:00)
[2021-03-30 15:00] VITALS: BP 116/66
--- NOTE | 2021-03-30 15:02 | NUR ---
SS following up with discharge planning. SS reviewed pt chart and discussed with pt RN. Pt is currently on room air. COVID19 negative. Pt on IV Daptomycin and IV Zosyn. Extensive wound care. PICC in place. Pt accepted at [facility], ; fax [phone], pending insurance approval. SS will continue to follow for discharge planning.
--- NOTE | 2021-03-30 15:28 | NUR ---
Wound Care Wound Type/Assessment: Wound care follow up. Right plantar 5th head metatarsal with previously exposed bone now covered, wound bed beefy red and granulated, right plantar foot wound clean, bone is covered, as well. R heel and dorsal toes are resolved. Treatment Recommendations/Plan: Cleanse all wounds and pat dry. Right plantar foot, right plantar 5th head metatarsal: pack with Hydrofera blue strip, then cover with Aquacel foam dressing, change every 2-3 days. Buttocks: apply calazime daily for protection Education provided: pt educated on PU healing/prevention Offloading surface/device: turn q2h using purple wedge, elevate legs on pillows. Spoke with Deanne Jerez NP for Vascular re: allowing pt to pivot and transfer with a Darco half shoe on the right foot, as PT is requesting and stating pt is unable to completely stay off foot with transfers. Deanne agreeable to half shoe and heel touch WB. Recommended Referrals/Tests: Discharge Recommendations for dressings: same as above, Bed lowered and call light in reach.
[2021-03-30 19:52] VITALS: BP 129/66
[2021-03-30] MEDS: LATANOPROST 0.005% OPHTH SOLUTION 2.5ML BOTTLE. OU SCH (20:50)
[2021-03-30] MEDS: ATORVASTATIN CALCIUM 20 MG TABLET PO SCH (20:51)
[2021-03-30 22:57] VITALS: BP 109/55
[2021-03-31] MEDS: PIPERACILLIN/TAZOBACTAM 3.375 GM in IV NORMAL SALINE 50ML 50 ML IV SCH ×4 (00:03→17:07)
[2021-03-31 03:01] VITALS: BP 117/60
[2021-03-31 05:55] LABS: BASO % 1 % (0-3); EOS # 0.5 x10^3/uL (0.0-0.7); EOS % 6 % (0-3); HEMATOCRIT 38.7 % (39.0-53.0); HEMOGLOBIN 12.7 g/dL (13.0-17.5); LYMPH # 1.5 x10^3/uL (1.0-4.8); LYMPH % 16 % (24-48); MEAN CORPUSCULAR HEMOGLOBIN 29 pg (25-35); MEAN CORPUSCULAR HGB CONC 33 g/dL (31-37); MEAN CORPUSCULAR VOLUME 87 fL (79-100); MONO # 0.6 x10^3/uL (0.0-1.1); MONO % 7 % (0-9); NEUT # 6.5 x10^3/uL (1.8-7.7); NEUT % 71 % (31-73); PLATELET COUNT 249 x10^3/uL (140-400); RED BLOOD COUNT 4.44 x10^6/uL (4.30-5.70); RED CELL DISTRIBUTION WIDTH 15.8 % (11.5-14.5); WHITE BLOOD COUNT 9.1 x10^3/uL (4.0-11.0)
[2021-03-31 06:01] LABS: CALCIUM 8.4 mg/dL (8.5-10.1); CREATININE 1.6 mg/dL (0.7-1.3); GFR 42.7; POTASSIUM 3.7 mmol/L (3.5-5.1)
[2021-03-31 07:00] VITALS: BP 133/63
[2021-03-31] MEDS: LACTOBACILLUS RHAMNOSUS GG 1 CAPSULE. PO SCH ×2 (08:39→21:21)
[2021-03-31] MEDS: METOPROLOL TART IMMED RELEASE 25 MG TABLET. PO SCH ×2 (08:39→21:23)
[2021-03-31] MEDS: APIXABAN 2.5 MG TABLET. PO SCH ×2 (08:39→21:21)
[2021-03-31] MEDS: BRIMONIDINE 0.2% OPHTH SOLUTION 5ML BOTTLE. OD SCH ×2 (08:40→21:20)
[2021-03-31] MEDS: AMIODARONE HCL 200 MG TABLET. PO SCH (08:40)
[2021-03-31] MEDS: ASPIRIN ENTERIC COATED 81 MG TABLET.DR. PO SCH (08:40)
[2021-03-31] MEDS: FUROSEMIDE 40 MG TABLET. PO SCH (08:40)
[2021-03-31] MEDS: SENNOSIDES/DOCUSATE 8.6/50MG TABLET. PO SCH ×2 (08:41→21:00)
[2021-03-31] MEDS: TIMOLOL 0.25% OPHTH SOLUTION 5ML BOTTLE. OU SCH ×2 (08:41→21:20)
--- NOTE | 2021-03-31 10:39 | NUR ---
SS following up with discharge planning. SS reviewed pt chart and discussed with pt RN. Pt is currently on room air. COVID19 negative. Pt on IV Daptomycin, IV Zosyn, and PO Lasix. Wound care following. PT/OT recommended snf unit. Pt accepted at [facility], ; fax [phone], pending insurance approval. Clinical updates phoned and faxed to [facility] today. SS will continue to follow for discharge planning.
--- NOTE | 2021-03-31 10:49 | PDOC ---
Infectious Disease Note Subjective: Subjective Patient without complaints Vital Signs: Vital Signs Vital Signs Date Time Temp Pulse Resp B/P (MAP) Pulse Ox O2 Delivery O2 Flow Rate FiO2 03/31/21 08:40 74 133/63 03/31/21 08:00 Room Air 03/31/21 07:00 98.1 16 95 98.1 Physical Exam: PHYSICAL EXAM GENERAL: Alert, oriented x3 male, lying in bed comfortably, in no acute distress. HEENT: Normocephalic, atraumatic. Anicteric. No thrush. Oral mucosa moist. NECK: Supple, no JVD. LUNGS: Clear bilaterally. No wheezing. HEART: RRR, S1, S2. No gallops or murmurs. Chest wall PPM site looks okay. ABDOMEN: Soft, obese. Bowel sounds present. Positive bowel sounds. EXTREMITIES: Bilateral chronic lymphedema and venous stasis. SKIN: Plantar surface on the right foot dressing taken down. Two small wounds. Lateral wound packed, probes through the bone. Wound is clean and healthy. No surrounding redness. No gross purulence. Heel ulcer is clean superficial. NEUROLOGIC: Alert, oriented x 3, grossly nonfocal. PSYCHIATRIC: Calm and cooperative. Medications: Inpatient Meds: Medications reviewed. Labs: Lab Laboratory Tests Test 03/31/21 05:40 White Blood Count 9.1 x10^3/uL (4.0-11.0) Red Blood Count 4.44 x10^6/uL (4.30-5.70) Hemoglobin 12.7 g/dL (13.0-17.5) Hematocrit 38.7 % (39.0-53.0) Mean Corpuscular Volume 87 fL (79-100) Mean Corpuscular Hemoglobin 29 pg (25-35) Mean Corpuscular Hemoglobin Concent 33 g/dL (31-37) Red Cell Distribution Width 15.8 % (11.5-14.5) Platelet Count 249 x10^3/uL (140-400) Neutrophils (%) (Auto) 71 % (31-73) Lymphocytes (%) (Auto) 16 % (24-48) Monocytes (%) (Auto) 7 % (0-9) Eosinophils (%) (Auto) 6 % (0-3) Basophils (%) (Auto) 1 % (0-3) Neutrophils # (Auto) 6.5 x10^3/uL (1.8-7.7) Lymphocytes # (Auto) 1.5 x10^3/uL (1.0-4.8) Monocytes # (Auto) 0.6 x10^3/uL (0.0-1.1) Eosinophils # (Auto) 0.5 x10^3/uL (0.0-0.7) Basophils # (Auto) 0.0 x10^3/uL (0.0-0.2) Sodium Level 142 mmol/L (136-145) Potassium Level 3.7 mmol/L (3.5-5.1) Chloride Level 107 mmol/L (98-107) Carbon Dioxide Level 30 mmol/L (21-32) Anion Gap 5 (6-14) Blood Urea Nitrogen 29 mg/dL (8-26) Creatinine 1.6 mg/dL (0.7-1.3) Estimated GFR (Cockcroft-Gault) 42.7 Glucose Level 78 mg/dL (70-99) Calcium Level 8.4 mg/dL (8.5-10.1) Micro RUN DATE: 03/28/21 [facility] LAB *LIVE* PAGE 1 RUN TIME: 924 Specimen Inquiry PATIENT: JOSE MERCADO ACCT: [id number] LOC: [address] [place] [address] U: [id number] AGE/SX: 70/M ROOM: 5 RE03/22/[address]: TEE ORTIZ III DO : 1950 BED: 1 DIS: STATUS: ADM IN TLOC: -------- ---- SPEC #: [id number] YENI: 03/23/21 STATUS: COMP REQ #: [id number] RECD: 03/23/[address] [facility] [address]: TEE ORTIZ III, DO SOURCE: FOOT ENTR: 03/23/[address]: [facility]ODI [facility]ALLO [facility] NAVARRO JJ MD,MATY BRO,CURTIS Conrad MD NO PCP ORDERED: ANAER/AEROB/GS COMMENTS: Has specimen been collected/obtained R 5TH TOE WOUND Procedure Result GRAM STAIN Final Final GRAM NEGATIVE RODS:MANY GRAM POSITIVE COCCI:MANY SQUAMOUS EPI CELL:FEW PMN (WBCs):MODERATE Unless otherwise specified, Testing Performed by: [address] [address] For Inquires, the Physician may contact the Microbiology department at [phone] ANAEROBIC-AEROBIC CULTURE Final Final MIXED AEROBIC AND ANAEROBIC GUALBERTO on 03/25/21 at 1210 INCLUDING: FEW GRAM NEGATIVE RODS on 03/24/21 at 0901 FINAL ID= [PROTEUS MIRABILIS], SEE TAQUERIA ON [id number] RARE [STAPHYLOCOCCUS EPIDERMIDIS] FEW [CORYNEBACTERIUM AMYCOLATUM] FEW [ENTEROCOCCUS AVIUM] MODERATE [BACTEROIDES THETAIOTAOMICRON G] MODERATE [ANAEROCOCCUS VAGINALIS] MANY [PREVOTELLA SPECIES] PROTEUS MIRABILIS STAPHYLOCOCCUS EPIDERMIDIS CORYNEBACTERIUM AMYCOLATUM ENTEROCOCCUS AVIUM BACTEROIDES THETAIOTAOMICRON G ANAEROCOCCUS VAGINALIS PREVOTELLA SPECIES Unless otherwise specified, Testing Performed by: [facility] [address] [place] [address] --- --------- RUN DATE: 03/28/21 [facility] LAB *LIVE* PAGE 2 RUN TIME: 09 Specimen Inquiry SPEC: [id number] PATIENT: JOSE MERCADO [id number] (Continued) Procedure Result CONTINUED ON NEXT PAGE RUN DATE: 03/28/21 [facility] *LIVE* PAGE 3 RUN TIME: 0925 Specimen Inquiry ---- -------- SPEC: [id number] PATIENT: JOSE MERCADO [id number] (Continued) Procedure Result ANAEROBIC-AEROBIC CULTURE Final (continued) For Inquires, the Physician may contact the Microbiology department at [phone] RUN DATE: 03/28/21 [facility] *LIVE* PAGE 1 RUN TIME: 0920 Specimen Inquiry PATIENT: JOSE MERCADO ACCT: [id number] LOC: [facility] U: [id number] AGE/SX: 70/M ROOM: 665 RE03/22/[address]: TEE ORTIZ III, DO : 1950 BED: 1 DIS: STATUS: ADM IN TLOC: SPEC #: [id number] YENI: 03/23/21 STATUS: COMP REQ #: [id number] RECD: 03/23/[address]: TEE ORTIZ III, DO SOURCE: FOOT ENTR: 03/23/[address]: JODI CARABALLO DO SPDESC: WOUND АННА,NAVARRO DIAZ,MATY BRO,CURTIS Conrad MD NO PCP ORDERED: ANAER/AERCITLALI/DAKOTA COMMENTS: Has specimen been collected/obtained? Y R HEEL WOUND Procedure Result GRAM STAIN Final Final GRAM NEGATIVE RODS:RARE GRAM POSITIVE COCCI:RARE RBC:MODERATE SQUAMOUS EPI CELL:RARE PMN (WBCs):RARE Unless otherwise specified, Testing Performed by: [address] [address] For Inquires, the Physician may contact the Microbiology department at [phone] ANAEROBIC-AEROBIC CULTURE Final Final MIXED AEROBIC AND ANAEROBIC GUALBERTO on 03/25/21 at 1206 INCLUDING: FEW GRAM NEGATIVE RODS on 03/24/21 at 0855 FINAL ID= [PROTEUS MIRABILIS] FEW [BACTEROIDES OVATUS GROUP] on 03/25/21 at 1206 MODERATE [ANAEROCOCCUS VAGINALIS] on 03/25/21 at 1207 FEW Mixed skin gualberto isolated on 03/27/21 at 1055 PROTEUS MIRABILIS UNIDENTIFIED ORGANISM BACTEROIDES OVATUS GROUP ANAEROCOCCUS VAGINALIS ANTIMICROBIAL SUSCEPTIBILITY Final Comment NEG TAQUERIA 56 PROTEUS MIRABILIS ANTIBIOTIC RESULT INTERPRETATION AMPICILLIN/SULBACTAM <=4/2 S AMIKACIN <=16 S RUN DATE: 03/28/21 [facility] *LIVE* PAGE 2 RUN TIME: 0920 Specimen Inquiry SPEC: [id number] PATIENT: JOSE MERCADO [id number] (Continued) Procedure Result CONTINUED ON NEXT PAGE RUN DATE: 03/28/21 [facility] *LIVE* PAGE 3 RUN TIME: 0920 Specimen Inquiry SPEC: [id number] PATIENT: JOSE MERCADO [id number] (Continued) --------- --- Procedure Result ANTIMICROBIAL SUSCEPTIBILITY Final (continued) AMPICILLIN <=8 S AMOXICILLIN/K CLAVULANATE <=8/4 S AZTREONAM <=4 S CEFTRIAXONE <=1 S CEFTAZIDIME <=1 S CEFOTAXIME <=2 S CEFOXITIN <=8 S CEFAZOLIN <=2 S CIPROFLOXACIN <=0.25 S CEFEPIME <=2 S CEFUROXIME <=4 S CEFTAZIDIME/AVIBACTAM <=4 S ERTAPENEM <=0.5 S GENTAMICIN <=2 S LEVOFLOXACIN <=0.5 S MEROPENEM <=1 S PIPERACILLIN/TAZOBACTAM <=8 S TRIMETHOPRIM/SULFAMETHOXAZOLE <=0.5/9.5 S TETRACYCLINE <=4 R* TOBRAMYCIN <=2 S Unless otherwise specified, Testing Performed by: [address] [address] For Inquires, the Physician may contact the Microbiology department at [phone] Objective: Assessment: Chronic right fifth metatarsal nonhealing wound, Foot xray suggests osteomyelitis right 5th metatarsal bone,concern for adequate healing with exposed bone Follow-up cultures polymicrobial including Proteus mirabilis and Enterococcus avium Discussed with micro lab Enterococcus avium susceptibilities are not available due to polymicrobial growth on cultures PAD Chronic right plantar ulcerations, Chronic lymphedema, chronic venous stasis, atrial fibrillation,status post PPM, CHF, hypertension, hyperlipidemia, osteoarthritis, History of glaucoma chest pain, elevated troponin poa, self-care deficit. 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 ,unsuccessful [employer]ENT recanalization via antegrade approach March 28, 2021 Swab cultures MODERATE [BACTEROIDES THETAIOTAOMICRON G] MODERATE [ANAEROCOCCUS VAGINALIS] MANY [PREVOTELLA SPECIES] PROTEUS MIRABILIS STAPHYLOCOCCUS EPIDERMIDIS CORYNEBACTERIUM AMYCOLATUM ENTEROCOCCUS AVIUM BACTEROIDES THETAIOTAOMICRON G ANAEROCOCCUS VAGINALIS PREVOTELLA SPECIES Plan: Plan of Care Continue daptomycin and Zosyn Monitor labs and cultures When ready for discharge patient will need daptomycin and IV Invanz, first dose of Invanz here before discharge Continue local wound care as directed Strict offload If patient does not get optimal response with above antibiotic treatment will need surgical debridement Vascular recommendations reviewed. MRI prior to proceeding with any surgical debridement or removal of bone to confirm osteomyelitis. Patient remains poor candidate for appropriate healing due to underlying comorbidities Optimal edema control PT and OT as tolerated PICC line rider Pt is awaiting placement Follow-up in ID clinic in 3 weeks D/W BRIAN BOWMAN MD Mar 31, 2021 10:49
[2021-03-31 11:00] VITALS: BP 112/63
[2021-03-31] MEDS: DAPTOmycin (GENERIC) IVPB 560 MG in IV NORMAL SALINE 50ML 50 ML IV SCH (11:24)
--- NOTE | 2021-03-31 12:30 | PDOC ---
ANAHIDORIS PORTILLO ARMEN 03/31/21 1230: CARDIO Progress Notes Date and Time Date of Service 03/31/21 Time of Evaluation 1230 Subjective Subjective: No Chest Pain, No shortness of breath, No Palpitations Vitals Vitals Vital Signs Date Time Temp Pulse Resp B/P (MAP) Pulse Ox O2 Delivery O2 Flow Rate FiO2 03/31/21 11:00 97.8 65 16 112/63 (79) 97 Room Air 97.8 Weight Weight [ ] Input and Output Intake and Output Intake and Output 03/31/21 07:00 Intake Total 910 ml Output Total 1075 ml Balance -165 ml Intake Oral 710 ml IV Total 200 ml Output Urine Total 1075 ml # Bowel Movements 1 Laboratory Labs Laboratory Tests Test 03/31/21 05:40 White Blood Count 9.1 x10^3/uL (4.0-11.0) Red Blood Count 4.44 x10^6/uL (4.30-5.70) Hemoglobin 12.7 g/dL (13.0-17.5) Hematocrit 38.7 % (39.0-53.0) Mean Corpuscular Volume 87 fL (79-100) Mean Corpuscular Hemoglobin 29 pg (25-35) Mean Corpuscular Hemoglobin Concent 33 g/dL (31-37) Red Cell Distribution Width 15.8 % (11.5-14.5) Platelet Count 249 x10^3/uL (140-400) Neutrophils (%) (Auto) 71 % (31-73) Lymphocytes (%) (Auto) 16 % (24-48) Monocytes (%) (Auto) 7 % (0-9) Eosinophils (%) (Auto) 6 % (0-3) Basophils (%) (Auto) 1 % (0-3) Neutrophils # (Auto) 6.5 x10^3/uL (1.8-7.7) Lymphocytes # (Auto) 1.5 x10^3/uL (1.0-4.8) Monocytes # (Auto) 0.6 x10^3/uL (0.0-1.1) Eosinophils # (Auto) 0.5 x10^3/uL (0.0-0.7) Basophils # (Auto) 0.0 x10^3/uL (0.0-0.2) Sodium Level 142 mmol/L (136-145) Potassium Level 3.7 mmol/L (3.5-5.1) Chloride Level 107 mmol/L (98-107) Carbon Dioxide Level 30 mmol/L (21-32) Anion Gap 5 (6-14) Blood Urea Nitrogen 29 mg/dL (8-26) Creatinine 1.6 mg/dL (0.7-1.3) Estimated GFR (Cockcroft-Gault) 42.7 Glucose Level 78 mg/dL (70-99) Calcium Level 8.4 mg/dL (8.5-10.1) Microbiology Micro Microbiology 03/23/21 Gram Stain - Final, Complete 03/23/21 Aerobic and Anaerobic Culture - Final, Complete 03/23/21 Antimicrobic Susceptibility - Final, Complete 03/23/21 Urine Culture - Final, Complete 03/23/21 Antimicrobic Susceptibility - Final, Complete 03/22/21 Blood Culture - Final, Complete NO GROWTH AFTER 5 DAYS Physical Exam HEENT: Neck Supple W Full Motion Chest: Symmetric LUNGS: Clear to Auscultation Heart: RRR (SR ) Abdomen: Soft N/T, Other (obese) Extremities: Other (chronic LE lymphedema) Neurology: alert, oriented, follow commands Assessment Assessment 1. PAFIB; Maintaining SR 2. Chronic diastolic CHF: compensated. 3. Hypertension; well controlled 3. CAD: no past intervention, clinically stable 5. PAD with chronic lymphedema and venous stasis. 6. SSS with PPM (Biotronik) 7. CKD; Cr stable 8. HLP; statin 9. Mild troponin elevation: 0.1 suspect demand mediated likely due to RVR Recommendations Continue metoprolol for rate control and amiodarone for rhythm maintenance Low-dose Eliquis for stroke prophylaxis. Lasix therapy Secondary prevention Discussed/encouraged compliance Supportive care Okay to transfer to from a CV standpoint Follow up in our office with Dr. Diaz as scheduled Justicifation of Admission Dx: Justifications for Admission: Justification of Admission Dx: No MATY DIAZ MD 03/31/21 184: CARDIO Progress Notes Plan Plan The patient was seen and interviewed as well as examined at the bedside. The chart was reviewed. The case was discussed. Agree with the plan of care. DORIS CHRISTIAN APRN Mar 31, 2021 12:30 MATY DIAZ MD Mar 31, 2021 18:49
[2021-03-31 15:00] VITALS: BP 125/74
--- NOTE | 2021-03-31 15:30 | PDOC ---
[employer] PROGRESS NOTE Date of Service DOS: DATE: 03/31/21 TIME: 15:29 Chief Complaint Chief Complaint Atrial fibrillation with RVR CHF HTN HLP Osteoarthritis BL extremity chronic wounds and ulcers Chronic Lymphedema Chronic venous stasis Right fifth metatarsal, possible osteomyelitis Inability to care for self ANTWAN (unknown baseline) Severe malnutrition History of Present Illness History of Present Illness 03/31 Pt seen and examined Charts reviewed No acute overnight events noted no new complaints PICC line in place Pt comfortably resting at time of exam, NAD Vitals/I&O Vitals/I&O: Vital Signs Date Time Temp Pulse Resp B/P (MAP) Pulse Ox O2 Delivery O2 Flow Rate FiO2 03/31/21 11:00 97.8 65 16 112/63 (79) 97 Room Air 97.8 I & O 03/30/21 03/30/21 03/31/21 15:00 23:00 07:00 Intake Total 280 ml 430 ml 200 ml Output Total 200 ml 650 ml 225 ml Balance 80 ml -220 ml -25 ml Physical Exam Physical Exam: GENERAL: Alert, oriented x3 male, lying in bed comfortably, in no acute distress. HEENT: Normocephalic, atraumatic. Anicteric. No thrush. Oral mucosa moist. NECK: Supple, no JVD. LUNGS: Clear bilaterally. No wheezing. HEART: RRR, S1, S2. No gallops or murmurs. Chest wall PPM site looks okay. ABDOMEN: Soft, obese. Bowel sounds present. Positive bowel sounds. EXTREMITIES: Bilateral chronic lymphedema and venous stasis. SKIN: Plantar surface on the right foot dressing taken down. Two small wounds. Lateral wound packed, probes through the bone. Wound is clean and healthy. No surrounding redness. No gross purulence. Heel ulcer is clean superficial. NEUROLOGIC: Alert, oriented x 3, grossly nonfocal. PSYCHIATRIC: Calm and cooperative. General: Alert, Oriented X3, Cooperative, No acute distress Heart: Regular rate, Normal S1, Normal S2, Other (distant heart sounds, Irregularly irregular) Lungs: Clear Abdomen: Soft, No tenderness, Other (obese) Extremities: No cyanosis, Other (LE lymphedema weeping) Skin: Other (LE venous dermaititis, chronic lyphemdema with right foot erythema) Labs Labs: Laboratory Tests Test 03/31/21 05:40 White Blood Count 9.1 x10^3/uL (4.0-11.0) Red Blood Count 4.44 x10^6/uL (4.30-5.70) Hemoglobin 12.7 g/dL (13.0-17.5) Hematocrit 38.7 % (39.0-53.0) Mean Corpuscular Volume 87 fL (79-100) Mean Corpuscular Hemoglobin 29 pg (25-35) Mean Corpuscular Hemoglobin Concent 33 g/dL (31-37) Red Cell Distribution Width 15.8 % (11.5-14.5) Platelet Count 249 x10^3/uL (140-400) Neutrophils (%) (Auto) 71 % (31-73) Lymphocytes (%) (Auto) 16 % (24-48) Monocytes (%) (Auto) 7 % (0-9) Eosinophils (%) (Auto) 6 % (0-3) Basophils (%) (Auto) 1 % (0-3) Neutrophils # (Auto) 6.5 x10^3/uL (1.8-7.7) Lymphocytes # (Auto) 1.5 x10^3/uL (1.0-4.8) Monocytes # (Auto) 0.6 x10^3/uL (0.0-1.1) Eosinophils # (Auto) 0.5 x10^3/uL (0.0-0.7) Basophils # (Auto) 0.0 x10^3/uL (0.0-0.2) Sodium Level 142 mmol/L (136-145) Potassium Level 3.7 mmol/L (3.5-5.1) Chloride Level 107 mmol/L (98-107) Carbon Dioxide Level 30 mmol/L (21-32) Anion Gap 5 (6-14) Blood Urea Nitrogen 29 mg/dL (8-26) Creatinine 1.6 mg/dL (0.7-1.3) Estimated GFR (Cockcroft-Gault) 42.7 Glucose Level 78 mg/dL (70-99) Calcium Level 8.4 mg/dL (8.5-10.1) Assessment and Plan Assessmemt and Plan Problems Medical Problems: (1) Atrial fibrillation with rapid ventricular response Status: Acute (2) Chest pain Status: Acute (3) Elevated troponin I level Status: Acute (4) Lymphedema of both lower extremities Status: Acute (5) Self-care deficit Status: Acute Comment Review of Relevant I have reviewed the following items marlene (where applicable) has been applied. Justifications for Admission Other Justification LIANET MENON MD Mar 31, 2021 15:29
[2021-03-31 19:00] VITALS: BP 127/65
[2021-03-31] MEDS: LATANOPROST 0.005% OPHTH SOLUTION 2.5ML BOTTLE. OU SCH (21:20)
[2021-03-31] MEDS: ATORVASTATIN CALCIUM 20 MG TABLET PO SCH (21:23)
[2021-03-31 23:03] VITALS: BP 117/65
[2021-04-01] MEDS: PIPERACILLIN/TAZOBACTAM 3.375 GM in IV NORMAL SALINE 50ML 50 ML IV SCH ×5 (00:05→23:45)
[2021-04-01 02:38] VITALS: BP 112/67
[2021-04-01 05:41] LABS: BASO % 0 % (0-3); EOS # 0.5 x10^3/uL (0.0-0.7); EOS % 5 % (0-3); HEMATOCRIT 41.6 % (39.0-53.0); HEMOGLOBIN 13.5 g/dL (13.0-17.5); LYMPH # 1.2 x10^3/uL (1.0-4.8); LYMPH % 14 % (24-48); MEAN CORPUSCULAR HEMOGLOBIN 28 pg (25-35); MEAN CORPUSCULAR HGB CONC 33 g/dL (31-37); MEAN CORPUSCULAR VOLUME 87 fL (79-100); MONO # 0.5 x10^3/uL (0.0-1.1); MONO % 6 % (0-9); NEUT # 6.5 x10^3/uL (1.8-7.7); NEUT % 75 % (31-73); PLATELET COUNT 270 x10^3/uL (140-400); RED BLOOD COUNT 4.77 x10^6/uL (4.30-5.70); WHITE BLOOD COUNT 8.7 x10^3/uL (4.0-11.0)
[2021-04-01 05:42] LABS: CALCIUM 8.6 mg/dL (8.5-10.1); CREATININE 1.6 mg/dL (0.7-1.3); GFR 42.7; POTASSIUM 3.8 mmol/L (3.5-5.1)
[2021-04-01 07:00] VITALS: BP 136/76
[2021-04-01] MEDS: SENNOSIDES/DOCUSATE 8.6/50MG TABLET. PO SCH ×2 (09:00→21:26)
[2021-04-01] MEDS: LACTOBACILLUS RHAMNOSUS GG 1 CAPSULE. PO SCH ×2 (09:10→21:26)
[2021-04-01] MEDS: ASPIRIN ENTERIC COATED 81 MG TABLET.DR. PO SCH (09:10)
[2021-04-01] MEDS: AMIODARONE HCL 200 MG TABLET. PO SCH (09:10)
[2021-04-01] MEDS: FUROSEMIDE 40 MG TABLET. PO SCH (09:11)
[2021-04-01] MEDS: METOPROLOL TART IMMED RELEASE 25 MG TABLET. PO SCH ×2 (09:11→21:26)
[2021-04-01] MEDS: TIMOLOL 0.25% OPHTH SOLUTION 5ML BOTTLE. OU SCH ×2 (09:11→21:27)
[2021-04-01] MEDS: APIXABAN 2.5 MG TABLET. PO SCH (09:11)
[2021-04-01] MEDS: BRIMONIDINE 0.2% OPHTH SOLUTION 5ML BOTTLE. OD SCH ×2 (09:11→21:26)
--- NOTE | 2021-04-01 09:18 | PDOC ---
Infectious Disease Note Subjective: Subjective Patient without complaints Swelling of lower extremities improvIng Discussed with nursing staff Awaiting placement Vital Signs: Vital Signs Vital Signs Date Time Temp Pulse Resp B/P (MAP) Pulse Ox O2 Delivery O2 Flow Rate FiO2 04/01/21 09:11 76 136/76 04/01/21 07:00 98.3 18 94 Room Air 98.3 Physical Exam: PHYSICAL EXAM GENERAL: Alert, oriented x3 male, lying in bed comfortably, in no acute distress. HEENT: Normocephalic, atraumatic. Anicteric. No thrush. Oral mucosa moist. Right eye irritation improved NECK: Supple, no JVD. LUNGS: Clear bilaterally. No wheezing. HEART: RRR, S1, S2. No gallops or murmurs. Chest wall PPM site looks okay. ABDOMEN: Soft, obese. Bowel sounds present. Positive bowel sounds. EXTREMITIES: Bilateral chronic lymphedema and venous stasis. SKIN: Plantar surface on the right foot dressing taken down. Two small wounds. Lateral wound packed, probes through the bone. Wound is clean and healthy. No surrounding redness. No gross purulence. Heel ulcer is clean superficial. NEUROLOGIC: Alert, oriented x 3, grossly nonfocal. PSYCHIATRIC: Calm and cooperative. Medications: Inpatient Meds: Medications reviewed. Labs: Lab Laboratory Tests Test 04/01/21 05:15 White Blood Count 8.7 x10^3/uL (4.0-11.0) Red Blood Count 4.77 x10^6/uL (4.30-5.70) Hemoglobin 13.5 g/dL (13.0-17.5) Hematocrit 41.6 % (39.0-53.0) Mean Corpuscular Volume 87 fL (79-100) Mean Corpuscular Hemoglobin 28 pg (25-35) Mean Corpuscular Hemoglobin Concent 33 g/dL (31-37) Red Cell Distribution Width 16.0 % (11.5-14.5) Platelet Count 270 x10^3/uL (140-400) Neutrophils (%) (Auto) 75 % (31-73) Lymphocytes (%) (Auto) 14 % (24-48) Monocytes (%) (Auto) 6 % (0-9) Eosinophils (%) (Auto) 5 % (0-3) Basophils (%) (Auto) 0 % (0-3) Neutrophils # (Auto) 6.5 x10^3/uL (1.8-7.7) Lymphocytes # (Auto) 1.2 x10^3/uL (1.0-4.8) Monocytes # (Auto) 0.5 x10^3/uL (0.0-1.1) Eosinophils # (Auto) 0.5 x10^3/uL (0.0-0.7) Basophils # (Auto) 0.0 x10^3/uL (0.0-0.2) Sodium Level 141 mmol/L (136-145) Potassium Level 3.8 mmol/L (3.5-5.1) Chloride Level 104 mmol/L (98-107) Carbon Dioxide Level 31 mmol/L (21-32) Anion Gap 6 (6-14) Blood Urea Nitrogen 28 mg/dL (8-26) Creatinine 1.6 mg/dL (0.7-1.3) Estimated GFR (Cockcroft-Gault) 42.7 Glucose Level 79 mg/dL (70-99) Calcium Level 8.6 mg/dL (8.5-10.1) Micro RUN DATE: 03/28/21 [facility] LAB *LIVE* PAGE 1 RUN TIME: 924 Specimen Inquiry PATIENT: JOSE MERCADO ACCT: [id number] LOC: [address] [place] [address] U: [id number] AGE/SX: 70/M ROOM: 66 RE03/22/[address]: TEE ORTIZ III, DO : 1950 BED: 1 DIS: STATUS: ADM IN TLOC: SPEC #: [id number] YENI: 03/23/21 STATUS: COMP REQ #: [id number] RECD: 03/23/[address]: TEE ORTIZ III, DO SOURCE: FOOT ENTR: 03/23/[address]: JODI CARABALLO DO SPDESC: NAVARRO DECKER MD,MATY BRO,CURTIS Conrad MD NO PCP ORDERED: ANAER/ZACARIAS/DAKOTA COMMENTS: Has specimen been collected/obtained R 5TH TOE WOUND Procedure Result GRAM STAIN Final Final GRAM NEGATIVE RODS:MANY GRAM POSITIVE COCCI:MANY SQUAMOUS EPI CELL:FEW PMN (WBCs):MODERATE Unless otherwise specified, Testing Performed by: [address] [address] For Inquires, the Physician may contact the Microbiology department at [phone] ANAEROBIC-AEROBIC CULTURE Final Final MIXED AEROBIC AND ANAEROBIC GUALBERTO on 03/25/21 at 1210 INCLUDING: FEW GRAM NEGATIVE RODS on 03/24/21 at 0901 FINAL ID= [PROTEUS MIRABILIS], SEE TAQUERIA ON [id number] RARE [STAPHYLOCOCCUS EPIDERMIDIS] FEW [CORYNEBACTERIUM AMYCOLATUM] FEW [ENTEROCOCCUS AVIUM] MODERATE [BACTEROIDES THETAIOTAOMICRON G] MODERATE [ANAEROCOCCUS VAGINALIS] MANY [PREVOTELLA SPECIES] PROTEUS MIRABILIS STAPHYLOCOCCUS EPIDERMIDIS CORYNEBACTERIUM AMYCOLATUM ENTEROCOCCUS AVIUM BACTEROIDES THETAIOTAOMICRON G ANAEROCOCCUS VAGINALIS PREVOTELLA SPECIES Unless otherwise specified, Testing Performed by: [address] [address] RUN DATE: 03/28/21 [facility] *LIVE* PAGE 2 RUN TIME: 924 Specimen Inquiry SPEC: [id number] PATIENT: JOSE MERCADO [id number] (Continued) ----- ------- Procedure Result CONTINUED ON NEXT PAGE RUN DATE: 03/28/21 [facility] *LIVE* PAGE 3 RUN TIME: 0925 Specimen Inquiry SPEC: [id number] PATIENT: JOSE MERCADO [id number] (Continued) Procedure Result ANAEROBIC-AEROBIC CULTURE Final (continued) For Inquires, the Physician may contact the Microbiology department at [phone] -- RUN DATE: 03/28/21 [facility] *LIVE* PAGE 1 RUN TIME: 0920 Specimen Inquiry PATIENT: JOSE MERCADO ACCT: [id number] LOC: [address] [place] [address] U: [id number] AGE/SX: 70/M ROOM: [facility] RE03/22/[address]: TEE ORTIZ III, DO : 1950 BED: 1 DIS: STATUS: ADM IN TLOC: SPEC #: [id number] YENI: 03/23/21 STATUS: COMP REQ #: [id number] RECD: 03/23/[address]: TEE ORTIZ III, DO SOURCE: FOOT ENTR: 03/23/[address]: JODI CARABALLO DO SPDESC: WOUND NAVARRO JJ MD, PRASHANTH S MD KOURY,CURTIS Conrad MD NO PCP ORDERED: ANAER/AEROB/GS COMMENTS: Has specimen been collected/obtained? Y R HEEL WOUND Procedure Result GRAM STAIN Final Final GRAM NEGATIVE RODS:RARE GRAM POSITIVE COCCI:RARE RBC:MODERATE SQUAMOUS EPI CELL:RARE PMN (WBCs):RARE Unless otherwise specified, Testing Performed by: [address] [address] For Inquires, the Physician may contact the Microbiology department at [phone] ANAEROBIC-AEROBIC CULTURE Final Final MIXED AEROBIC AND ANAEROBIC GUALBERTO on 03/25/21 at 1206 INCLUDING: FEW GRAM NEGATIVE RODS on 03/24/21 at 0855 FINAL ID= [PROTEUS MIRABILIS] FEW [BACTEROIDES OVATUS GROUP] on 03/25/21 at 1206 MODERATE [ANAEROCOCCUS VAGINALIS] on 03/25/21 at 1207 FEW Mixed skin gualberto isolated on 03/27/21 at 1055 PROTEUS MIRABILIS UNIDENTIFIED ORGANISM BACTEROIDES OVATUS GROUP ANAEROCOCCUS VAGINALIS ANTIMICROBIAL SUSCEPTIBILITY Final Comment NEG TAQUERIA 56 PROTEUS MIRABILIS ANTIBIOTIC RESULT INTERPRETATION AMPICILLIN/SULBACTAM <=4/2 S AMIKACIN <=16 S RUN DATE: 03/28/21 [facility] *LIVE* PAGE 2 RUN TIME: 0920 Specimen Inquiry SPEC: [id number] PATIENT: JOSE MERCADO [id number] (Continued) Procedure Result CONTINUED ON NEXT PAGE RUN DATE: 03/28/21 [facility] LAB *LIVE* PAGE 3 RUN TIME: 0920 Specimen Inquiry SPEC: [id number] PATIENT: JOSE MERCADO [id number] (Continued) -- Procedure Result ANTIMICROBIAL SUSCEPTIBILITY Final (continued) AMPICILLIN <=8 S AMOXICILLIN/K CLAVULANATE <=8/4 S AZTREONAM <=4 S CEFTRIAXONE <=1 S CEFTAZIDIME <=1 S CEFOTAXIME <=2 S CEFOXITIN <=8 S CEFAZOLIN <=2 S CIPROFLOXACIN <=0.25 S CEFEPIME <=2 S CEFUROXIME <=4 S CEFTAZIDIME/AVIBACTAM <=4 S ERTAPENEM <=0.5 S GENTAMICIN <=2 S LEVOFLOXACIN <=0.5 S MEROPENEM <=1 S PIPERACILLIN/TAZOBACTAM <=8 S TRIMETHOPRIM/SULFAMETHOXAZOLE <=0.5/9.5 S TETRACYCLINE <=4 R* TOBRAMYCIN <=2 S Unless otherwise specified, Testing Performed by: [address] [address] For Inquires, the Physician may contact the Microbiology department at [phone] Objective: Assessment: Chronic right fifth metatarsal nonhealing wound, Foot xray suggests osteomyelitis right 5th metatarsal bone,concern for adequate healing with exposed bone Follow-up cultures polymicrobial including Proteus mirabilis and Enterococcus avium Discussed with micro lab Enterococcus avium susceptibilities are not available due to polymicrobial growth on cultures PAD Chronic right plantar ulcerations, Chronic lymphedema, chronic venous stasis, atrial fibrillation,status post PPM, CHF, hypertension, hyperlipidemia, osteoarthritis, History of glaucoma chest pain, elevated troponin poa, self-care deficit. 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 March 28, 2021 Swab cultures MODERATE [BACTEROIDES THETAIOTAOMICRON G] MODERATE [ANAEROCOCCUS VAGINALIS] MANY [PREVOTELLA SPECIES] PROTEUS MIRABILIS STAPHYLOCOCCUS EPIDERMIDIS CORYNEBACTERIUM AMYCOLATUM ENTEROCOCCUS AVIUM BACTEROIDES THETAIOTAOMICRON G ANAEROCOCCUS VAGINALIS PREVOTELLA SPECIES Plan: Plan of Care Continue daptomycin and Zosyn Monitor labs and cultures When ready for discharge patient will need daptomycin and IV Invanz, first dose of Invanz here before discharge Continue local wound care as directed Strict offload If patient does not get optimal response with above antibiotic treatment will need surgical debridement Vascular recommendations reviewed. MRI prior to proceeding with any surgical debridement or removal of bone to confirm osteomyelitis. 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
[2021-04-01 11:00] VITALS: BP 143/67
--- NOTE | 2021-04-01 11:05 | PDOC ---
OLGA AGUIRRE [employer] CLEANER 04/01/21 1104: CARDIO Progress Notes Date and Time Date of Service 04/01/2021 Time of Evaluation 1050 Subjective Subjective: No Chest Pain, No shortness of breath, No Palpitations Vitals Vitals Vital Signs Date Time Temp Pulse Resp B/P (MAP) Pulse Ox O2 Delivery O2 Flow Rate FiO2 04/01/21 09:11 76 136/76 04/01/21 08:00 Room Air 04/01/21 07:00 98.3 18 94 98.3 Weight Weight [ ] Input and Output Intake and Output Intake and Output 04/01/21 07:00 Intake Total 910 ml Output Total 2125 ml Balance -1215 ml Intake Oral 660 ml IV Total 250 ml Output Urine Total 2125 ml # Bowel Movements 1 Laboratory Labs Laboratory Tests Test 04/01/21 05:15 White Blood Count 8.7 x10^3/uL (4.0-11.0) Red Blood Count 4.77 x10^6/uL (4.30-5.70) Hemoglobin 13.5 g/dL (13.0-17.5) Hematocrit 41.6 % (39.0-53.0) Mean Corpuscular Volume 87 fL (79-100) Mean Corpuscular Hemoglobin 28 pg (25-35) Mean Corpuscular Hemoglobin Concent 33 g/dL (31-37) Red Cell Distribution Width 16.0 % (11.5-14.5) Platelet Count 270 x10^3/uL (140-400) Neutrophils (%) (Auto) 75 % (31-73) Lymphocytes (%) (Auto) 14 % (24-48) Monocytes (%) (Auto) 6 % (0-9) Eosinophils (%) (Auto) 5 % (0-3) Basophils (%) (Auto) 0 % (0-3) Neutrophils # (Auto) 6.5 x10^3/uL (1.8-7.7) Lymphocytes # (Auto) 1.2 x10^3/uL (1.0-4.8) Monocytes # (Auto) 0.5 x10^3/uL (0.0-1.1) Eosinophils # (Auto) 0.5 x10^3/uL (0.0-0.7) Basophils # (Auto) 0.0 x10^3/uL (0.0-0.2) Sodium Level 141 mmol/L (136-145) Potassium Level 3.8 mmol/L (3.5-5.1) Chloride Level 104 mmol/L (98-107) Carbon Dioxide Level 31 mmol/L (21-32) Anion Gap 6 (6-14) Blood Urea Nitrogen 28 mg/dL (8-26) Creatinine 1.6 mg/dL (0.7-1.3) Estimated GFR (Cockcroft-Gault) 42.7 Glucose Level 79 mg/dL (70-99) Calcium Level 8.6 mg/dL (8.5-10.1) Microbiology Micro Microbiology 03/23/21 Gram Stain - Final, Complete 03/23/21 Aerobic and Anaerobic Culture - Final, Complete 03/23/21 Antimicrobic Susceptibility - Final, Complete 03/23/21 Urine Culture - Final, Complete 03/23/21 Antimicrobic Susceptibility - Final, Complete 03/22/21 Blood Culture - Final, Complete NO GROWTH AFTER 5 DAYS Physical Exam HEENT: Neck Supple W Full Motion Chest: Symmetric LUNGS: Clear to Auscultation Heart: RRR (SR ) Abdomen: Soft N/T, Other (obese) Extremities: Other (chronic LE lymphedema) Neurology: alert, oriented, follow commands Assessment Assessment 1. PAFIB; Maintaining SR 2. Chronic diastolic CHF: compensated. 3. Hypertension; well controlled 3. CAD: no past intervention, clinically stable 5. PAD with chronic lymphedema and venous stasis. 6. SSS with PPM (Biotronik) 7. CKD; Cr stable 8. HLP; statin 9. Mild troponin elevation: 0.1 suspect demand mediated likely due to RVR Recommendations Continue metoprolol for rate control and amiodarone for rhythm maintenance Eliquis for stroke prophylaxis. Lasix therapy Secondary prevention Discussed/encouraged compliance Supportive care Okay to transfer to from a CV standpoint Follow up in our office with Dr. Diaz as scheduled Justicifation of Admission Dx: Justifications for Admission: Justification of Admission Dx: No MATY DIAZ MD 04/01/21 1631: CARDIO Progress Notes Plan Plan The patient was seen and interviewed as well as examined at the bedside. The chart was reviewed. The case was discussed. Agree with the plan of care. OLGA AGUIRRE PIN CLEANER Apr 01, 2021 11:04 MATY DIAZ MD Apr 01, 2021 16:31
[2021-04-01] MEDS: DAPTOmycin (GENERIC) IVPB 560 MG in IV NORMAL SALINE 50ML 50 ML IV SCH (11:30)
--- NOTE | 2021-04-01 15:31 | PDOC ---
[facility] PROGRESS NOTE Date of Service DOS: DATE: 04/01/21 TIME: 15:30 Chief Complaint Chief Complaint Atrial fibrillation with RVR CHF HTN HLP Osteoarthritis BL extremity chronic wounds and ulcers Chronic Lymphedema Chronic venous stasis Right fifth metatarsal, possible osteomyelitis Inability to care for self ANTWAN (unknown baseline) Severe malnutrition History of Present Illness History of Present Illness 04/01, trying to get to [facility], very weak, I could not assist him to transfer from chair to bed. 2 person asssit 03/31 Pt seen and examined Charts reviewed No acute overnight events noted no new complaints PICC line in place Pt comfortably resting at time of exam, NAD Vitals/I&O Vitals/I&O: Vital Signs Date Time Temp Pulse Resp B/P (MAP) Pulse Ox O2 Delivery O2 Flow Rate FiO2 04/01/21 11:00 98.6 72 17 143/67 (92) 95 Room Air 98.6 I & O 03/31/21 03/31/21 04/01/21 15:00 23:00 07:00 Intake Total 280 ml 230 ml 400 ml Output Total 800 ml 1050 ml 275 ml Balance -520 ml -820 ml 125 ml Physical Exam Physical Exam: GENERAL: Alert, oriented x3 male, lying in bed comfortably, in no acute distress. HEENT: Normocephalic, atraumatic. Anicteric. No thrush. Oral mucosa moist. Right eye irritation improved NECK: Supple, no JVD. LUNGS: Clear bilaterally. No wheezing. HEART: RRR, S1, S2. No gallops or murmurs. Chest wall PPM site looks okay. ABDOMEN: Soft, obese. Bowel sounds present. Positive bowel sounds. EXTREMITIES: Bilateral chronic lymphedema and venous stasis. SKIN: Plantar surface on the right foot dressing taken down. Two small wounds. Lateral wound packed, probes through the bone. Wound is clean and healthy. No surrounding redness. No gross purulence. Heel ulcer is clean superficial. NEUROLOGIC: Alert, oriented x 3, grossly nonfocal. PSYCHIATRIC: Calm and cooperative. General: Alert, Oriented X3, Cooperative, No acute distress Heart: Regular rate, Normal S1, Normal S2, Other (distant heart sounds, Irregularly irregular) Lungs: Clear Abdomen: Soft, No tenderness, Other (obese) Extremities: No cyanosis, Other (LE lymphedema weeping) Skin: Other (LE venous dermaititis, chronic lyphemdema with right foot erythema) Labs Labs: Laboratory Tests Test 04/01/21 05:15 White Blood Count 8.7 x10^3/uL (4.0-11.0) Red Blood Count 4.77 x10^6/uL (4.30-5.70) Hemoglobin 13.5 g/dL (13.0-17.5) Hematocrit 41.6 % (39.0-53.0) Mean Corpuscular Volume 87 fL (79-100) Mean Corpuscular Hemoglobin 28 pg (25-35) Mean Corpuscular Hemoglobin Concent 33 g/dL (31-37) Red Cell Distribution Width 16.0 % (11.5-14.5) Platelet Count 270 x10^3/uL (140-400) Neutrophils (%) (Auto) 75 % (31-73) Lymphocytes (%) (Auto) 14 % (24-48) Monocytes (%) (Auto) 6 % (0-9) Eosinophils (%) (Auto) 5 % (0-3) Basophils (%) (Auto) 0 % (0-3) Neutrophils # (Auto) 6.5 x10^3/uL (1.8-7.7) Lymphocytes # (Auto) 1.2 x10^3/uL (1.0-4.8) Monocytes # (Auto) 0.5 x10^3/uL (0.0-1.1) Eosinophils # (Auto) 0.5 x10^3/uL (0.0-0.7) Basophils # (Auto) 0.0 x10^3/uL (0.0-0.2) Sodium Level 141 mmol/L (136-145) Potassium Level 3.8 mmol/L (3.5-5.1) Chloride Level 104 mmol/L (98-107) Carbon Dioxide Level 31 mmol/L (21-32) Anion Gap 6 (6-14) Blood Urea Nitrogen 28 mg/dL (8-26) Creatinine 1.6 mg/dL (0.7-1.3) Estimated GFR (Cockcroft-Gault) 42.7 Glucose Level 79 mg/dL (70-99) Calcium Level 8.6 mg/dL (8.5-10.1) Assessment and Plan Assessmemt and Plan Problems Medical Problems: (1) Atrial fibrillation with rapid ventricular response Status: Acute (2) Chest pain Status: Acute (3) Elevated troponin I level Status: Acute (4) Lymphedema of both lower extremities Status: Acute (5) Self-care deficit Status: Acute Comment Review of Relevant I have reviewed the following items marlene (where applicable) has been applied. Justifications for Admission Other Justification LIANET MENON MD Apr 01, 2021 15:31
[2021-04-01 15:55] VITALS: BP 145/77
[2021-04-01 19:00] VITALS: BP 135/74
[2021-04-01] MEDS: APIXABAN 5 MG TABLET. PO SCH (21:25)
[2021-04-01] MEDS: ATORVASTATIN CALCIUM 20 MG TABLET PO SCH (21:26)
[2021-04-01] MEDS: LATANOPROST 0.005% OPHTH SOLUTION 2.5ML BOTTLE. OU SCH (21:26)
[2021-04-01 22:47] VITALS: BP 114/60
[2021-04-02 02:59] VITALS: BP 122/70
[2021-04-02] MEDS: PIPERACILLIN/TAZOBACTAM 3.375 GM in IV NORMAL SALINE 50ML 50 ML IV SCH ×4 (05:20→23:38)
[2021-04-02 05:50] LABS: BASO % 0 % (0-3); EOS # 0.5 x10^3/uL (0.0-0.7); EOS % 6 % (0-3); HEMATOCRIT 41.6 % (39.0-53.0); HEMOGLOBIN 13.5 g/dL (13.0-17.5); LYMPH # 1.3 x10^3/uL (1.0-4.8); LYMPH % 15 % (24-48); MEAN CORPUSCULAR HEMOGLOBIN 28 pg (25-35); MEAN CORPUSCULAR HGB CONC 32 g/dL (31-37); MEAN CORPUSCULAR VOLUME 87 fL (79-100); MONO # 0.7 x10^3/uL (0.0-1.1); MONO % 8 % (0-9); NEUT # 5.8 x10^3/uL (1.8-7.7); NEUT % 70 % (31-73); PLATELET COUNT 255 x10^3/uL (140-400); RED BLOOD COUNT 4.79 x10^6/uL (4.30-5.70); RED CELL DISTRIBUTION WIDTH 15.9 % (11.5-14.5); WHITE BLOOD COUNT 8.3 x10^3/uL (4.0-11.0)
[2021-04-02 05:56] LABS: CALCIUM 8.5 mg/dL (8.5-10.1); CREATININE 1.8 mg/dL (0.7-1.3); GFR 37.3; POTASSIUM 3.5 mmol/L (3.5-5.1)
[2021-04-02 07:40] VITALS: BP 129/76
--- NOTE | 2021-04-02 08:32 | PDOC ---
Infectious Disease Note Subjective: Subjective Patient without complaints Vital Signs: Vital Signs Vital Signs Date Time Temp Pulse Resp B/P (MAP) Pulse Ox O2 Delivery O2 Flow Rate FiO2 04/02/21 07:40 98.1 71 17 129/76 (93) 95 Room Air 98.1 Physical Exam: PHYSICAL EXAM GENERAL: Alert, oriented x3 male, lying in bed comfortably, in no acute distress. HEENT: Normocephalic, atraumatic. Anicteric. No thrush. Oral mucosa moist. Right eye irritation improved NECK: Supple, no JVD. LUNGS: Clear bilaterally. No wheezing. HEART: RRR, S1, S2. No gallops or murmurs. Chest wall PPM site looks okay. ABDOMEN: Soft, obese. Bowel sounds present. Positive bowel sounds. EXTREMITIES: Bilateral chronic lymphedema and venous stasis. SKIN: Plantar surface on the right foot dressing taken down. Two small wounds. Lateral wound packed, probes through the bone. Wound is clean and healthy. No surrounding redness. No gross purulence. Heel ulcer is clean superficial. NEUROLOGIC: Alert, oriented x 3, grossly nonfocal. PSYCHIATRIC: Calm and cooperative. Medications: Inpatient Meds: Medications reviewed. Labs: Lab Laboratory Tests Test 04/02/21 05:30 White Blood Count 8.3 x10^3/uL (4.0-11.0) Red Blood Count 4.79 x10^6/uL (4.30-5.70) Hemoglobin 13.5 g/dL (13.0-17.5) Hematocrit 41.6 % (39.0-53.0) Mean Corpuscular Volume 87 fL (79-100) Mean Corpuscular Hemoglobin 28 pg (25-35) Mean Corpuscular Hemoglobin Concent 32 g/dL (31-37) Red Cell Distribution Width 15.9 % (11.5-14.5) Platelet Count 255 x10^3/uL (140-400) Neutrophils (%) (Auto) 70 % (31-73) Lymphocytes (%) (Auto) 15 % (24-48) Monocytes (%) (Auto) 8 % (0-9) Eosinophils (%) (Auto) 6 % (0-3) Basophils (%) (Auto) 0 % (0-3) Neutrophils # (Auto) 5.8 x10^3/uL (1.8-7.7) Lymphocytes # (Auto) 1.3 x10^3/uL (1.0-4.8) Monocytes # (Auto) 0.7 x10^3/uL (0.0-1.1) Eosinophils # (Auto) 0.5 x10^3/uL (0.0-0.7) Basophils # (Auto) 0.0 x10^3/uL (0.0-0.2) Sodium Level 142 mmol/L (136-145) Potassium Level 3.5 mmol/L (3.5-5.1) Chloride Level 104 mmol/L (98-107) Carbon Dioxide Level 31 mmol/L (21-32) Anion Gap 7 (6-14) Blood Urea Nitrogen 27 mg/dL (8-26) Creatinine 1.8 mg/dL (0.7-1.3) Estimated GFR (Cockcroft-Gault) 37.3 Glucose Level 84 mg/dL (70-99) Calcium Level 8.5 mg/dL (8.5-10.1) Micro RUN DATE: 03/28/21 [facility] LAB *LIVE* PAGE 1 RUN TIME: 924 Specimen Inquiry PATIENT: JOSE MERCADO ACCT: [id number] LOC: [address] [place] [address] U: [id number] AGE/SX: 70/M ROOM: [facility] RE03/22/[address]: TEE ORTIZ III DO : 1950 BED: 1 DIS: STATUS: ADM IN TLOC: SPEC #: [id number] YENI: 03/23/21 STATUS: COMP REQ #: [id number] RECD: 03/23/21 [facility] DR: TEE ORTIZ III, DO SOURCE: FOOT ENTR: 03/23/[address]: JODI CARABALLO DO [facility]: NAVARRO DECKER MD,MATY BRO,CURTIS Conrad MD NO PCP ORDERED: ANAER/AEROB/GS COMMENTS: Has specimen been collected/obtained R 5TH TOE WOUND Procedure Result GRAM STAIN Final Final GRAM NEGATIVE RODS:MANY GRAM POSITIVE COCCI:MANY SQUAMOUS EPI CELL:FEW PMN (WBCs):MODERATE Unless otherwise specified, Testing Performed by: [address] [address] For Inquires, the Physician may contact the Microbiology department at [phone] ANAEROBIC-AEROBIC CULTURE Final Final MIXED AEROBIC AND ANAEROBIC GUALBERTO on 03/25/21 at 1210 INCLUDING: FEW GRAM NEGATIVE RODS on 03/24/21 at 0901 FINAL ID= [PROTEUS MIRABILIS], SEE TAQUERIA ON [id number] RARE [STAPHYLOCOCCUS EPIDERMIDIS] FEW [CORYNEBACTERIUM AMYCOLATUM] FEW [ENTEROCOCCUS AVIUM] MODERATE [BACTEROIDES THETAIOTAOMICRON G] MODERATE [ANAEROCOCCUS VAGINALIS] MANY [PREVOTELLA SPECIES] PROTEUS MIRABILIS STAPHYLOCOCCUS EPIDERMIDIS CORYNEBACTERIUM AMYCOLATUM ENTEROCOCCUS AVIUM BACTEROIDES THETAIOTAOMICRON G ANAEROCOCCUS VAGINALIS PREVOTELLA SPECIES Unless otherwise specified, Testing Performed by: [facility] [address] [place] [address] RUN DATE: 03/28/21 [facility] *LIVE* PAGE 2 RUN TIME: 924 Specimen Inquiry ------- ----- SPEC: [id number] PATIENT: JESSJOSE Rey [id number] (Continued) Procedure Result CONTINUED ON NEXT PAGE RUN DATE: 03/28/21 [facility] LAB *LIVE* PAGE 3 RUN TIME: 0925 Specimen Inquiry SPEC: [id number] PATIENT: JOSE MERCADO [id number] (Continued) Procedure Result ANAEROBIC-AEROBIC CULTURE Final (continued) For Inquires, the Physician may contact the Microbiology department at [phone] RUN DATE: 03/28/21 [facility] *LIVE* PAGE 1 RUN TIME: 0920 Specimen Inquiry PATIENT: JOSE MERCADO ACCT: [id number] LOC: [facility] U: [id number] AGE/SX: 70/M ROOM: 665 RE03/22/[address]: TEE ORTIZ III, DO : 1950 BED: 1 D IS: STATUS: ADM IN TLOC: SPEC #: [id number] YENI: 03/23/21 STATUS: COMP REQ #: [id number] RECD: 03/23/[address]: TEE ORTIZ III, DO SOURCE: FOOT ENTR: 03/23/[address]: JODI CARABALLO DO SPDESC: WOUND NAVARRO JJ MD,MATY BRO,CURTIS Conrad MD NO PCP ORDERED: ANAER/AEROB/GS COMMENTS: Has specimen been collected/obtained? Y R HEEL WOUND Procedure Result GRAM STAIN Final Final GRAM NEGATIVE RODS:RARE GRAM POSITIVE COCCI:RARE RBC:MODERATE SQUAMOUS EPI CELL:RARE PMN (WBCs):RARE Unless otherwise specified, Testing Performed by: [address] [address] For Inquires, the Physician may contact the Microbiology department at [phone] ANAEROBIC-AEROBIC CULTURE Final Final MIXED AEROBIC AND ANAEROBIC GUALBERTO on 03/25/21 at 1206 INCLUDING: FEW GRAM NEGATIVE RODS on 03/24/21 at 0855 FINAL ID= [PROTEUS MIRABILIS] FEW [BACTEROIDES OVATUS GROUP] on 03/25/21 at 1206 MODERATE [ANAEROCOCCUS VAGINALIS] on 03/25/21 at 1207 FEW Mixed skin gualberto isolated on 03/27/21 at 1055 PROTEUS MIRABILIS UNIDENTIFIED ORGANISM BACTEROIDES OVATUS GROUP ANAEROCOCCUS VAGINALIS ANTIMICROBIAL SUSCEPTIBILITY Final Comment NEG TAQUERIA 56 PROTEUS MIRABILIS ANTIBIOTIC RESULT INTERPRETATION AMPICILLIN/SULBACTAM <=4/2 S AMIKACIN <=16 S RUN DATE: 03/28/21 [facility] LAB *LIVE* PAGE 2 RUN TIME: 0920 Specimen Inquiry SPEC: [id number] PATIENT: MERCADOJOSE [id number] (Continued) Procedure Result CONTINUED ON NEXT PAGE RUN DATE: 03/28/21 [facility] LAB *LIVE* PAGE 3 RUN TIME: 0920 Specimen Inquiry SPEC: [id number] PATIENT: JOSE MERCADO [id number] (C ontinued) Procedure Result ANTIMICROBIAL SUSCEPTIBILITY Final (continued) AMPICILLIN <=8 S AMOXICILLIN/K CLAVULANATE <=8/4 S AZTREONAM <=4 S CEFTRIAXONE <=1 S CEFTAZIDIME <=1 S CEFOTAXIME <=2 S CEFOXITIN <=8 S CEFAZOLIN <=2 S CIPROFLOXACIN <=0.25 S CEFEPIME <=2 S CEFUROXIME <=4 S CEFTAZIDIME/AVIBACTAM <=4 S ERTAPENEM <=0.5 S GENTAMICIN <=2 S LEVOFLOXACIN <=0.5 S MEROPENEM <=1 S PIPERACILLIN/TAZOBACTAM <=8 S TRIMETHOPRIM/SULFAMETHOXAZOLE <=0.5/9.5 S TETRACYCLINE <=4 R* TOBRAMYCIN <=2 S Unless otherwise specified, Testing Performed by: [address] [address] For Inquires, the Physician may contact the Microbiology department at [phone] Objective: Assessment: Chronic right fifth metatarsal nonhealing wound, Foot xray suggests osteomyelitis right 5th metatarsal bone,concern for adequate healing with e xposed bone Follow-up cultures polymicrobial including Proteus mirabilis and Enterococcus avium Discussed with micro lab Enterococcus avium susceptibilities are not available due to polymicrobial growth on cultures PAD Chronic right plantar ulcerations, Chronic lymphedema, chronic venous stasis, atrial fibrillation,status post PPM, CHF, hypertension, hyperlipidemia, osteoarthritis, History of glaucoma chest pain, elevated troponin poa, self-care deficit. 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 ,unsuccessful [employer] recanalization via antegrade approach March 28, 2021 Swab cultures MODERATE [BACTEROIDES THETAIOTAOMICRON G] MODERATE [ANAEROCOCCUS VAGINALIS] MANY [PREVOTELLA SPECIES] PROTEUS MIRABILIS STAPHYLOCOCCUS EPIDERMIDIS CORYNEBACTERIUM AMYCOLATUM ENTEROCOCCUS AVIUM BACTEROIDES THETAIOTAOMICRON G ANAEROCOCCUS VAGINALIS PREVOTELLA SPECIES Plan: Plan of Care Continue daptomycin and Zosyn Monitor labs and cultures When ready for discharge patient will need daptomycin and IV Invanz, first dose of Invanz here before discharge Continue local wound care as directed Strict offload If patient does not get optimal response with above antibiotic treatment will need surgical debridement Vascular recommendations reviewed. MRI prior to proceeding with any surgical debridement or removal of bone to confirm osteomyelitis. 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
[2021-04-02] MEDS: SENNOSIDES/DOCUSATE 8.6/50MG TABLET. PO SCH ×2 (09:09→21:19)
[2021-04-02] MEDS: ASPIRIN ENTERIC COATED 81 MG TABLET.DR. PO SCH (09:10)
[2021-04-02] MEDS: FUROSEMIDE 40 MG TABLET. PO SCH (09:10)
[2021-04-02] MEDS: APIXABAN 5 MG TABLET. PO SCH ×2 (09:10→21:19)
[2021-04-02] MEDS: LACTOBACILLUS RHAMNOSUS GG 1 CAPSULE. PO SCH ×2 (09:10→21:19)
[2021-04-02] MEDS: METOPROLOL TART IMMED RELEASE 25 MG TABLET. PO SCH ×2 (09:10→21:19)
[2021-04-02] MEDS: AMIODARONE HCL 200 MG TABLET. PO SCH (09:10)
[2021-04-02] MEDS: TIMOLOL 0.25% OPHTH SOLUTION 5ML BOTTLE. OU SCH ×2 (09:11→21:20)
[2021-04-02] MEDS: BRIMONIDINE 0.2% OPHTH SOLUTION 5ML BOTTLE. OD SCH ×2 (09:11→21:20)
[2021-04-02 10:38] VITALS: BP 92/57
[2021-04-02] MEDS: DAPTOmycin (GENERIC) IVPB 560 MG in IV NORMAL SALINE 50ML 50 ML IV SCH (11:31)
--- NOTE | 2021-04-02 13:28 | PDOC ---
[employer] PROGRESS NOTE Date of Service DOS: DATE: 04/02/21 TIME: 13:27 Chief Complaint Chief Complaint Atrial fibrillation with RVR CHF HTN HLP Osteoarthritis BL extremity chronic wounds and ulcers Chronic Lymphedema Chronic venous stasis Right fifth metatarsal, possible osteomyelitis Inability to care for self ANTWAN (unknown baseline) Severe malnutrition History of Present Illness History of Present Illness 04/02, no events, still weak, plan LTAC placement if able, would othereise try skilled, maybe sunday 04/01, trying to get to LTAC, very weak, I could not assist him to transfer from chair to bed. 2 person asssit 03/31 Pt seen and examined Charts reviewed No acute overnight events noted no new complaints PICC line in place Pt comfortably resting at time of exam, NAD Vitals/I&O Vitals/I&O: Vital Signs Date Time Temp Pulse Resp B/P (MAP) Pulse Ox O2 Delivery O2 Flow Rate FiO2 04/02/21 10:38 97.5 18 92/57 (69) 97 Room Air 97.5 04/02/21 09:10 71 04/02/21 08:00 2.0 I & O 04/01/21 04/01/21 04/02/21 15:00 23:00 07:00 Intake Total 340 ml 430 ml 450 ml Output Total 200 ml 300 ml 150 ml Balance 140 ml 130 ml 300 ml Physical Exam Physical Exam: GENERAL: Alert, oriented x3 male, lying in bed comfortably, in no acute distress. HEENT: Normocephalic, atraumatic. Anicteric. No thrush. Oral mucosa moist. Right eye irritation improved NECK: Supple, no JVD. LUNGS: Clear bilaterally. No wheezing. HEART: RRR, S1, S2. No gallops or murmurs. Chest wall PPM site looks okay. ABDOMEN: Soft, obese. Bowel sounds present. Positive bowel sounds. EXTREMITIES: Bilateral chronic lymphedema and venous stasis. SKIN: Plantar surface on the right foot dressing taken down. Two small wounds. Lateral wound packed, probes through the bone. Wound is clean and healthy. No surrounding redness. No gross purulence. Heel ulcer is clean superficial. NEUROLOGIC: Alert, oriented x 3, grossly nonfocal. PSYCHIATRIC: Calm and cooperative. General: Alert, Oriented X3, Cooperative, No acute distress Heart: Regular rate, Normal S1, Normal S2, Other (distant heart sounds, Irregularly irregular) Lungs: Clear Abdomen: Soft, No tenderness, Other (obese) Extremities: No cyanosis, Other (LE lymphedema weeping) Skin: Other (LE venous dermaititis, chronic lyphemdema with right foot erythema) Labs Labs: Laboratory Tests Test 04/02/21 05:30 White Blood Count 8.3 x10^3/uL (4.0-11.0) Red Blood Count 4.79 x10^6/uL (4.30-5.70) Hemoglobin 13.5 g/dL (13.0-17.5) Hematocrit 41.6 % (39.0-53.0) Mean Corpuscular Volume 87 fL (79-100) Mean Corpuscular Hemoglobin 28 pg (25-35) Mean Corpuscular Hemoglobin Concent 32 g/dL (31-37) Red Cell Distribution Width 15.9 % (11.5-14.5) Platelet Count 255 x10^3/uL (140-400) Neutrophils (%) (Auto) 70 % (31-73) Lymphocytes (%) (Auto) 15 % (24-48) Monocytes (%) (Auto) 8 % (0-9) Eosinophils (%) (Auto) 6 % (0-3) Basophils (%) (Auto) 0 % (0-3) Neutrophils # (Auto) 5.8 x10^3/uL (1.8-7.7) Lymphocytes # (Auto) 1.3 x10^3/uL (1.0-4.8) Monocytes # (Auto) 0.7 x10^3/uL (0.0-1.1) Eosinophils # (Auto) 0.5 x10^3/uL (0.0-0.7) Basophils # (Auto) 0.0 x10^3/uL (0.0-0.2) Sodium Level 142 mmol/L (136-145) Potassium Level 3.5 mmol/L (3.5-5.1) Chloride Level 104 mmol/L (98-107) Carbon Dioxide Level 31 mmol/L (21-32) Anion Gap 7 (6-14) Blood Urea Nitrogen 27 mg/dL (8-26) Creatinine 1.8 mg/dL (0.7-1.3) Estimated GFR (Cockcroft-Gault) 37.3 Glucose Level 84 mg/dL (70-99) Calcium Level 8.5 mg/dL (8.5-10.1) Assessment and Plan Assessmemt and Plan Problems Medical Problems: (1) Atrial fibrillation with rapid ventricular response Status: Acute (2) Chest pain Status: Acute (3) Elevated troponin I level Status: Acute (4) Lymphedema of both lower extremities Status: Acute (5) Self-care deficit Status: Acute Comment Review of Relevant I have reviewed the following items marlene (where applicable) has been applied. Medications: Current Medications Medications (Trade) Dose Ordered Sig/Placido Route PRN Reason Start Time Stop Time Status Last Admin Dose Admin Apixaban (Eliquis) 5 mg BID PO 04/01/21 21:00 04/02/21 09:10 Justifications for Admission Other Justification LIANET MENON MD Apr 02, 2021 13:28
--- NOTE | 2021-04-02 13:37 | PDOC ---
PROGRESS NOTES Date of Service DATE: 04/02/21 TIME: 13:34 Subjective Subjective Patient seen and examined Objective Objective Vital Signs Date Time Temp Pulse Resp B/P (MAP) Pulse Ox O2 Delivery O2 Flow Rate FiO2 04/02/21 10:38 97.5 18 92/57 (69) 97 Room Air 97.5 04/02/21 09:10 71 04/02/21 08:00 2.0 Intake and Output 04/02/21 07:00 Intake Total 1220 ml Output Total 650 ml Balance 570 ml Intake Oral 1020 ml IV Total 200 ml Output Urine Total 650 ml # Voids 1 Physical Exam Abdomen: Normal bowel sounds Heart: Regular rate General: mild distress Lungs: Other (Mildly decreased breath sounds) Assessment Assessment Problems Medical Problems: (1) Atrial fibrillation with rapid ventricular response Status: Acute (2) Chest pain Status: Acute (3) Elevated troponin I level Status: Acute (4) Lymphedema of both lower extremities Status: Acute (5) Self-care deficit Status: Acute PAFIB; Maintaining SR. continue present medical treatment. On metoprolol and amiodarone as well as Eliquis Chronic diastolic CHF: compensated. Hypertension; controlled CAD: no past intervention, clinically stable PAD with chronic lymphedema and venous stasis. SSS with PPM (Biotronik) CKD; Cr stable HLD; statin Mild troponin elevation: 0.1 suspect demand mediated likely due to RVR Comment Review of Relevant I have reviewed the following items marlene (where applicable) has been applied. Labs Laboratory Tests Test 04/01/21 05:15 04/02/21 05:30 White Blood Count 8.7 x10^3/uL (4.0-11.0) 8.3 x10^3/uL (4.0-11.0) Red Blood Count 4.77 x10^6/uL (4.30-5.70) 4.79 x10^6/uL (4.30-5.70) Hemoglobin 13.5 g/dL (13.0-17.5) 13.5 g/dL (13.0-17.5) Hematocrit 41.6 % (39.0-53.0) 41.6 % (39.0-53.0) Mean Corpuscular Volume 87 fL (79-100) 87 fL (79-100) Mean Corpuscular Hemoglobin 28 pg (25-35) 28 pg (25-35) Mean Corpuscular Hemoglobin Concent 33 g/dL (31-37) 32 g/dL (31-37) Red Cell Distribution Width 16.0 % (11.5-14.5) 15.9 % (11.5-14.5) Platelet Count 270 x10^3/uL (140-400) 255 x10^3/uL (140-400) Neutrophils (%) (Auto) 75 % (31-73) 70 % (31-73) Lymphocytes (%) (Auto) 14 % (24-48) 15 % (24-48) Monocytes (%) (Auto) 6 % (0-9) 8 % (0-9) Eosinophils (%) (Auto) 5 % (0-3) 6 % (0-3) Basophils (%) (Auto) 0 % (0-3) 0 % (0-3) Neutrophils # (Auto) 6.5 x10^3/uL (1.8-7.7) 5.8 x10^3/uL (1.8-7.7) Lymphocytes # (Auto) 1.2 x10^3/uL (1.0-4.8) 1.3 x10^3/uL (1.0-4.8) Monocytes # (Auto) 0.5 x10^3/uL (0.0-1.1) 0.7 x10^3/uL (0.0-1.1) Eosinophils # (Auto) 0.5 x10^3/uL (0.0-0.7) 0.5 x10^3/uL (0.0-0.7) Basophils # (Auto) 0.0 x10^3/uL (0.0-0.2) 0.0 x10^3/uL (0.0-0.2) Sodium Level 141 mmol/L (136-145) 142 mmol/L (136-145) Potassium Level 3.8 mmol/L (3.5-5.1) 3.5 mmol/L (3.5-5.1) Chloride Level 104 mmol/L (98-107) 104 mmol/L (98-107) Carbon Dioxide Level 31 mmol/L (21-32) 31 mmol/L (21-32) Anion Gap 6 (6-14) 7 (6-14) Blood Urea Nitrogen 28 mg/dL (8-26) 27 mg/dL (8-26) Creatinine 1.6 mg/dL (0.7-1.3) 1.8 mg/dL (0.7-1.3) Estimated GFR (Cockcroft-Gault) 42.7 37.3 Glucose Level 79 mg/dL (70-99) 84 mg/dL (70-99) Calcium Level 8.6 mg/dL (8.5-10.1) 8.5 mg/dL (8.5-10.1) Laboratory Tests Test 04/02/21 05:30 White Blood Count 8.3 x10^3/uL (4.0-11.0) Red Blood Count 4.79 x10^6/uL (4.30-5.70) Hemoglobin 13.5 g/dL (13.0-17.5) Hematocrit 41.6 % (39.0-53.0) Mean Corpuscular Volume 87 fL (79-100) Mean Corpuscular Hemoglobin 28 pg (25-35) Mean Corpuscular Hemoglobin Concent 32 g/dL (31-37) Red Cell Distribution Width 15.9 % (11.5-14.5) Platelet Count 255 x10^3/uL (140-400) Neutrophils (%) (Auto) 70 % (31-73) Lymphocytes (%) (Auto) 15 % (24-48) Monocytes (%) (Auto) 8 % (0-9) Eosinophils (%) (Auto) 6 % (0-3) Basophils (%) (Auto) 0 % (0-3) Neutrophils # (Auto) 5.8 x10^3/uL (1.8-7.7) Lymphocytes # (Auto) 1.3 x10^3/uL (1.0-4.8) Monocytes # (Auto) 0.7 x10^3/uL (0.0-1.1) Eosinophils # (Auto) 0.5 x10^3/uL (0.0-0.7) Basophils # (Auto) 0.0 x10^3/uL (0.0-0.2) Sodium Level 142 mmol/L (136-145) Potassium Level 3.5 mmol/L (3.5-5.1) Chloride Level 104 mmol/L (98-107) Carbon Dioxide Level 31 mmol/L (21-32) Anion Gap 7 (6-14) Blood Urea Nitrogen 27 mg/dL (8-26) Creatinine 1.8 mg/dL (0.7-1.3) Estimated GFR (Cockcroft-Gault) 37.3 Glucose Level 84 mg/dL (70-99) Calcium Level 8.5 mg/dL (8.5-10.1) Microbiology 03/23/21 Gram Stain - Final, Complete 03/23/21 Aerobic and Anaerobic Culture - Final, Complete 03/23/21 Antimicrobic Susceptibility - Final, Complete 03/23/21 Urine Culture - Final, Complete 03/23/21 Antimicrobic Susceptibility - Final, Complete 03/22/21 Blood Culture - Final, Complete NO GROWTH AFTER 5 DAYS Medications Current Medications Aspirin (Aspirin Chewable) 324 mg 1X ONCE PO Last administered on 03/22/21at 12:43; Start 03/22/21 at 12:30; Stop 03/22/21 at 12:31; Status DC Diltiazem HCl (Cardizem Iv Push) 10 mg 1X ONCE IVP Last administered on 03/22/21at 12:44; Start 03/22/21 at 12:15; Stop 03/22/21 at 12:17; Status DC Diltiazem HCl 125 mg/Sodium Chloride 125 ml @ 5 mls/hr CONT PRN IV SEE PROTOCOL; Start 03/22/21 at 13:22; Stop 03/22/21 at 13:45; Status DC Amiodarone HCl 450 mg/Dextrose 259 ml @ 0 mls/hr CONT PRN IV SEE I/O RECORD; Start 03/22/21 at 13:45; Stop 03/23/21 at 13:45; Status DC Sodium Chloride 500 ml @ 500 mls/hr 1X ONCE IV Last administered on 03/22/21at 13:56; Start 03/22/21 at 14:00; Stop 03/22/21 at 14:59; Status DC Enoxaparin Sodium (Lovenox 100mg Syringe) 100 mg 1X ONCE SQ Last administered on 03/22/21at 15:21; Start 03/22/21 at 14:15; Stop 03/22/21 at 14:18; Status DC Ondansetron HCl (Zofran) 4 mg PRN Q8HRS PRN IVP NAUSEA/VOMITING; Start 03/22/21 at 14:30; Stop 03/23/21 at 14:29; Status DC Ondansetron HCl (Zofran) 4 mg PRN Q6HRS PRN IVP NAUSEA/VOMITING; Start 03/22/21 at 16:00 Calcium Carbonate/ Glycine (Tums) 500 mg PRN Q3HRS PRN PO UPSET STOMACH; Start 03/22/21 at 16:00 Zolpidem Tartrate (Ambien) 5 mg PRN QHS PRN PO INSOMNIA, MAY REPEAT IN 1HR; Start 03/22/21 at 16:00 Info (Non-Icu Electrolyte Protocol) 1 ea PRN DAILY PRN MC SEE COMMENTS; Start 03/22/21 at 16:00 Oxycodone HCl (Roxicodone) 5 mg PRN Q3HRS PRN PO BREAKTHROUGH PAIN; Start 03/22/21 at 16:00 Oxycodone/ Acetaminophen (Percocet 5/325) 1 tab PRN Q4HRS PRN PO MILD PAIN, 1ST CHOICE; Start 03/22/21 at 16:00 Oxycodone/ Acetaminophen (Percocet 5/325) 2 tab PRN Q4HRS PRN PO MODERATE PAIN, SEVERE PAIN; Start 03/22/21 at 16:00 Acetaminophen (Tylenol) 650 mg PRN Q6HRS PRN PO Headaches, Temp > 101.5F; Start 03/22/21 at 16:00 Senna/Docusate Sodium (Senna Plus) 1 tab BID PO Last administered on 04/02/21at 09:09; Start 03/22/21 at 21:00 Heparin Sodium (Porcine) (Heparin Sodium) 5,000 unit Q8HRS SQ Last administered on 03/29/21at 21:18; Start 03/22/21 at 22:00; Stop 03/29/21 at 23:13; Status DC Aspirin (Ecotrin) 81 mg DAILY PO Last administered on 04/02/21at 09:10; Start 03/23/21 at 09:00 Atorvastatin Calcium (Lipitor) 20 mg QHS PO Last administered on 04/01/21at 21:26; Start 03/22/21 at 21:00 Latanoprost (Xalatan) 1 drop QHS OU Last administered on 04/01/21at 21:26; Start 03/22/21 at 21:00 Brimonidine Tartrate (Alphagan) 1 drop BID OD Last administered on 04/02/21at 09:11; Start 03/22/21 at 21:00 Timolol Maleate (Timoptic 0.25% Ophth) 1 drop BID OU Last administered on 04/02/21at 09:11; Start 03/22/21 at 21:00 Digoxin (Lanoxin) 250 mcg 1X ONCE IV Last administered on 03/22/21at 17:29; Start 03/22/21 at 16:30; Stop 03/22/21 at 16:31; Status DC Influenza Virus Vaccine Quadrival (Flulaval Quad [id number] Syringe) 0.5 ml ONCE ONCE VAX IM Last administered on 03/23/21at 10:06; Start 03/23/21 at 09:00; Stop 03/23/21 at 09:01; Status DC Metoprolol Tartrate (Lopressor) 25 mg 1X ONCE PO Last administered on 03/23/21at 16:17; Start 03/23/21 at 12:45; Stop 03/23/21 at 12:48; Status DC Metoprolol Tartrate (Lopressor) 25 mg BID PO Last administered on 04/02/21at 09:10; Start 03/23/21 at 21:00 Piperacillin Sod/ Tazobactam Sod 3.375 gm/Sodium Chloride 50 ml @ 100 mls/hr Q6HRS IV Last administered on 04/02/21at 12:30; Start 03/23/21 at 16:00 Vancomycin HCl 1.5 gm/Sodium Chloride 500 ml @ 250 mls/hr Q12H IV ; Start 03/23/21 at 15:45; Status UNV Vancomycin HCl (Vanco Per Pharmacy) 1 each PRN DAILY PRN MC SEE COMMENTS Last administered on 03/27/21at 14:27; Start 03/23/21 at 15:45; Stop 03/28/21 at 10:19; Status DC Piperacillin Sod/ Tazobactam Sod (Zosyn Per Pharmacy) 1 each PRN DAILY PRN MC SEE COMMENTS; Start 03/23/21 at 15:45 Vancomycin HCl 2 gm/Sodium Chloride 500 ml @ 250 mls/hr 1X ONCE IV Last ad ministered on 03/23/21at 18:14; Start 03/23/21 at 17:00; Stop 03/23/21 at 18:59; Status DC Vancomycin HCl 1.5 gm/Sodium Chloride 500 ml @ 250 mls/hr Q18H IV Last administered on 03/24/21at 13:45; Start 03/24/21 at 12:00; Stop 03/25/21 at 06:16; Status DC Vancomycin HCl (Vancomycin Trough Level) 1 each 1X ONCE MC ; Start 03/25/21 at 05:30; Stop 03/25/21 at 05:31; Status DC Furosemide (Lasix) 40 mg 1X ONCE IVP Last administered on 03/23/21at 21:29; Start 03/23/21 at 19:00; Stop 03/23/21 at 19:01; Status DC Furosemide (Lasix) 40 mg DAILY IVP Last administered on 03/29/21at 07:52; Start 03/24/21 at 09:00; Stop 03/29/21 at 23:09; Status DC Lactobacillus Rhamnosus (Culturelle) 1 cap BID PO Last administered on 04/02/21at 09:10; Start 03/24/21 at 10:00 Amiodarone HCl 150 mg/Dextrose 103 ml @ 600 mls/hr 1X ONCE IV Last administered on 03/24/21at 13:15; Start 03/24/21 at 13:15; Stop 03/25/21 at 09:51; Status DC Amiodarone HCl 450 mg/Dextrose 259 ml @ 33 mls/hr CONT PRN IV SEE I/O RECORD Last administered on 03/25/21at 03:46; Start 03/24/21 at 13:15; Stop 03/25/21 at 09:51; Status DC Vancomycin HCl 1.5 gm/Sodium Chloride 500 ml @ 250 mls/hr Q12H IV ; Start 03/25/21 at 07:00; Status Cancel Amiodarone HCl (Cordarone) 200 mg DAILY PO Last administered on 04/02/21at 09:10; Start 03/25/21 at 10:00 Lidocaine HCl (Buffered Lidocaine 1%) 3 ml STK-MED ONCE .ROUTE ; Start 03/25/21 at 10:20; Stop 03/25/21 at 10:20; Status DC Lidocaine HCl (Buffered Lidocaine 1%) 3 ml 1X ONCE INJ Last administered on 03/25/21at 10:45; Start 03/25/21 at 10:45; Stop 03/25/21 at 10:46; Status DC Vancomycin HCl 1.5 gm/Sodium Chloride 500 ml @ 250 mls/hr Q18H IV Last administered on 03/27/21at 17:55; Start 03/25/21 at 11:30; Stop 03/28/21 at 10:19; Status DC Vancomycin HCl (Vancomycin Trough Level) 1 each 1X ONCE MC Last administered on 03/26/21at 23:00; Start 03/26/21 at 23:00; Stop 03/26/21 at 23:01; Status DC Daptomycin 560 mg/ Sodium Chloride 50 ml @ 100 mls/hr Q24H IV Last administered on 04/02/21at 11:31; Start 03/28/21 at 11:00 Iodixanol (Visipaque 320) 100 ml STK-MED ONCE .ROUTE ; Start 03/28/21 at 11:06; Stop 03/28/21 at 11:06; Status DC Lidocaine HCl (Lidocaine 1% 20ml Vial) 20 ml STK-MED ONCE .ROUTE ; Start 03/28/21 at 11:54; Stop 03/28/21 at 11:54; Status DC Heparin Sodium/ Sodium Chloride 1,000 ml @ As Directed STK-MED ONCE .ROUTE ; Start 03/28/21 at 11:54; Stop 03/28/21 at 11:54; Status DC Midazolam HCl (Versed) 5 mg STK-MED ONCE .ROUTE ; Start 03/28/21 at 12:01; Stop 03/28/21 at 12:02; Status DC Fentanyl Citrate (Fentanyl 2ml Vial) 100 mcg STK-MED ONCE .ROUTE ; Start 03/28/21 at 12:02; Stop 03/28/21 at 12:02; Status DC Verapamil HCl (Verapamil) 5 mg STK-MED ONCE .ROUTE ; Start 03/28/21 at 12:02; Stop 03/28/21 at 12:02; Status DC Heparin Sodium (Porcine) (Heparin Sodium) 10,000 unit STK-MED ONCE .ROUTE ; Start 03/28/21 at 12:02; Stop 03/28/21 at 12:02; Status DC Nitroglycerin (Nitroglycerin) 200 mcg STK-MED ONCE .ROUTE ; Start 03/28/21 at 12:03; Stop 03/28/21 at 12:03; Status DC Heparin Sodium/ Sodium Chloride (HEPARIN for ARTERIAL LINE FLUSH) 1,000 unit 1X ONCE IART Last administered on 03/28/21at 13:35; Start 03/28/21 at 12:45; Stop 03/28/21 at 12:46; Status DC Heparin Sodium/ Sodium Chloride (HEPARIN for ARTERIAL LINE FLUSH) 1,000 unit 1X ONCE IART Last administered on 03/28/21at 13:39; Start 03/28/21 at 12:45; Stop 03/28/21 at 12:46; Status DC Midazolam HCl (Versed) 5 mg 1X ONCE IV Last administered on 03/28/21at 13:41; Start 03/28/21 at 12:45; Stop 03/28/21 at 12:46; Status DC Fentanyl Citrate (Fentanyl 2ml Vial) 100 mcg 1X ONCE IV Last administered on 03/28/21at 13:41; Start 03/28/21 at 12:45; Stop 03/28/21 at 12:46; Status DC Iodixanol (Visipaque 320) 100 ml 1X ONCE IART Last administered on 03/28/21at 13:39; Start 03/28/21 at 12:45; Stop 03/28/21 at 12:46; Status DC Lidocaine HCl (Lidocaine 1% 20ml Vial) 20 ml 1X ONCE INJ Last administered on 03/28/21at 13:39; Start 03/28/21 at 12:45; Stop 03/28/21 at 12:46; Status DC Info (CONTRAST GIVEN -- Rx MONITORING) 1 each PRN DAILY PRN MC SEE COMMENTS; Start 03/28/21 at 12:45; Stop 03/30/21 at 12:44; Status DC Heparin Sodium (Porcine) (Heparin Sodium) 5,000 unit 1X ONCE IV Last administered on 03/28/21at 13:42; Start 03/28/21 at 13:00; Stop 03/28/21 at 13:02; Status DC Heparin Sodium/ Sodium Chloride 500 ml @ As Directed STK-MED ONCE .ROUTE ; Start 03/28/21 at 13:44; Stop 03/28/21 at 13:45; Status DC Potassium Chloride (Klor-Con) 40 meq 1X ONCE PO Last administered on 1at 16:32; Start 03/28/21 at 15:15; Stop 03/28/21 at 15:16; Status DC Loperamide HCl (Imodium) 2 mg PRN Q15MIN PRN PO DIARRHEA Last administered on 03/28/21at 17:40; Start 03/28/21 at 17:45 Verapamil HCl (Verapamil) 5 mg STK-MED ONCE .ROUTE ; Start 03/28/21 at 12:30; Stop 03/29/21 at 08:54; Status DC Apixaban (Eliquis) 2.5 mg BID PO Last administered on 04/01/21at 09:11; Start 03/30/21 at 09:00; Stop 04/01/21 at 11:05; Status DC Furosemide (Lasix) 40 mg DAILY PO Last administered on 04/02/21at 09:10; Start 03/30/21 at 09:00 Info (Anti-Coagulation Monitoring By Pharmacy) 1 each PRN DAILY PRN MC PER PROTOCOL Last administered on 03/29/21at 23:50; Start 03/29/21 at 23:15 Potassium Chloride (Klor-Con) 40 meq 1X ONCE PO Last administered on 03/05 12/22at 11:29; Start 03/30/21 at 12:00; Stop 03/30/21 at 12:01; Status DC Apixaban (Eliquis) 5 mg BID PO Last administered on 04/02/21at 09:10; Start 04/01/21 at 21:00 Active Scripts Active Atorvastatin Calcium 20 Mg Tablet 20 Mg PO QHS Reported Aspirin Ec (Aspirin) 81 Mg Tablet.dr 1 Tab PO DAILY Combigan Eye Drops (Brimonidine Tartrate/Timolol) 5 Ml Drops 5 Ml OP BID Latanoprost 2.5 Ml Drops 1 Drop EACHEYE QHS Vitals/I & O Vital Sign - Last 24 Hours 04/01/21 04/01/21 04/01/21 04/01/21 15:55 19:00 20:00 21:26 Temp 97.6 98.6 97.6 98.6 Pulse 79 83 83 Resp 19 18 B/P (MAP) 145/77 (99) 135/74 (94) 135/74 Pulse Ox 94 97 O2 Delivery Room Air Room Air Room Air 1004/02/21 04/02/21 04/02/21 22:47 02:59 07:40 08:00 Temp 97.8 98.0 98.1 97.8 98.0 98.1 Pulse 67 67 71 Resp 17 17 17 B/P (MAP) 114/60 (78) 122/70 (87) 129/76 (93) Pulse Ox 95 95 95 O2 Delivery Room Air Room Air Room Air Room Air O2 Flow Rate 2.0 04/02/21 04/02/21 04/02/21 09:10 09:10 10:38 Temp 97.5 97.5 Pulse 71 71 Resp 18 B/P (MAP) 129/76 129/76 92/57 (69) Pulse Ox 97 O2 Delivery Room Air Intake and Output 04/01/21 04/01/21 04/02/21 15:00 23:00 07:00 Intake Total 340 ml 430 ml 450 ml Output Total 200 ml 300 ml 150 ml Balance 140 ml 130 ml 300 ml Justifications for Admission Other Justification Nutrition Consultation Dietary Evaluation: Recommendations by RD: Dietary education by RD, Add supplement feedings Comments: Cardiac jacoby bid REC mvi Expected Outcomes/Goals: to meet >75% est nutr needs improved wound status Goals ongoing Malnutrition Findings: Body Fat Depletion (Non Severe: Mod to Severe Weight Status: Obese Fluid Accumulation (Non-Severe: Mild depletion KRISTEL BALDERRAMA MD Apr 02, 2021 13:37
[2021-04-02 14:47] VITALS: BP 92/62
[2021-04-02 19:22] VITALS: BP 125/64
[2021-04-02] MEDS: ATORVASTATIN CALCIUM 20 MG TABLET PO SCH (21:19)
[2021-04-02] MEDS: LATANOPROST 0.005% OPHTH SOLUTION 2.5ML BOTTLE. OU SCH (21:20)
[2021-04-02 22:35] VITALS: BP 132/68
[2021-04-03 02:41] VITALS: BP 131/66
[2021-04-03] MEDS: PIPERACILLIN/TAZOBACTAM 3.375 GM in IV NORMAL SALINE 50ML 50 ML IV SCH ×4 (05:34→23:19)
[2021-04-03 05:53] LABS: BASO # 0.1 x10^3/uL (0.0-0.2); BASO % 1 % (0-3); EOS # 0.4 x10^3/uL (0.0-0.7); EOS % 5 % (0-3); HEMATOCRIT 40.5 % (39.0-53.0); HEMOGLOBIN 13.3 g/dL (13.0-17.5); LYMPH # 1.4 x10^3/uL (1.0-4.8); LYMPH % 16 % (24-48); MEAN CORPUSCULAR HEMOGLOBIN 29 pg (25-35); MEAN CORPUSCULAR HGB CONC 33 g/dL (31-37); MEAN CORPUSCULAR VOLUME 87 fL (79-100); MONO # 0.7 x10^3/uL (0.0-1.1); MONO % 8 % (0-9); NEUT # 6.3 x10^3/uL (1.8-7.7); NEUT % 70 % (31-73); PLATELET COUNT 248 x10^3/uL (140-400); RED BLOOD COUNT 4.65 x10^6/uL (4.30-5.70); RED CELL DISTRIBUTION WIDTH 16.4 % (11.5-14.5)
[2021-04-03 05:59] LABS: CALCIUM 8.4 mg/dL (8.5-10.1); CREATININE 1.9 mg/dL (0.7-1.3); POTASSIUM 3.5 mmol/L (3.5-5.1)
[2021-04-03 07:27] VITALS: BP 114/66
[2021-04-03] MEDS: APIXABAN 5 MG TABLET. PO SCH ×2 (08:20→23:17)
[2021-04-03] MEDS: LACTOBACILLUS RHAMNOSUS GG 1 CAPSULE. PO SCH ×2 (08:20→23:15)
[2021-04-03] MEDS: METOPROLOL TART IMMED RELEASE 25 MG TABLET. PO SCH ×2 (08:20→23:17)
[2021-04-03] MEDS: SENNOSIDES/DOCUSATE 8.6/50MG TABLET. PO SCH ×2 (08:21→23:17)
[2021-04-03] MEDS: AMIODARONE HCL 200 MG TABLET. PO SCH (08:21)
[2021-04-03] MEDS: ASPIRIN ENTERIC COATED 81 MG TABLET.DR. PO SCH (08:21)
[2021-04-03] MEDS: FUROSEMIDE 40 MG TABLET. PO SCH (08:21)
[2021-04-03] MEDS: TIMOLOL 0.25% OPHTH SOLUTION 5ML BOTTLE. OU SCH ×2 (08:22→23:15)
[2021-04-03] MEDS: BRIMONIDINE 0.2% OPHTH SOLUTION 5ML BOTTLE. OD SCH ×2 (08:22→23:15)
--- NOTE | 2021-04-03 09:47 | PDOC ---
Infectious Disease Note Subjective: Subjective Patient without complaints Vital Signs: Vital Signs Vital Signs Date Time Temp Pulse Resp B/P (MAP) Pulse Ox O2 Delivery O2 Flow Rate FiO2 04/03/21 08:21 78 114/66 04/03/21 08:05 Room Air 2.0 04/03/21 07:27 97.8 16 95 97.8 Physical Exam: PHYSICAL EXAM GENERAL: Alert, oriented x3 male, lying in bed comfortably, in no acute distress. HEENT: Normocephalic, atraumatic. Anicteric. No thrush. Oral mucosa moist. Right eye irritation improved NECK: Supple, no JVD. LUNGS: Clear bilaterally. No wheezing. HEART: RRR, S1, S2. No gallops or murmurs. Chest wall PPM site looks okay. ABDOMEN: Soft, obese. Bowel sounds present. Positive bowel sounds. EXTREMITIES: Bilateral chronic lymphedema and venous stasis. SKIN: Plantar surface on the right foot dressing taken down. Two small wounds. Lateral wound packed, probes through the bone. Wound is clean and healthy. No surrounding redness. No gross purulence. Heel ulcer is clean superficial. NEUROLOGIC: Alert, oriented x 3, grossly nonfocal. PSYCHIATRIC: Calm and cooperative. Medications: Inpatient Meds: Medications reviewed. Labs: Lab Laboratory Tests Test 04/03/21 05:40 White Blood Count 9.0 x10^3/uL (4.0-11.0) Red Blood Count 4.65 x10^6/uL (4.30-5.70) Hemoglobin 13.3 g/dL (13.0-17.5) Hematocrit 40.5 % (39.0-53.0) Mean Corpuscular Volume 87 fL (79-100) Mean Corpuscular Hemoglobin 29 pg (25-35) Mean Corpuscular Hemoglobin Concent 33 g/dL (31-37) Red Cell Distribution Width 16.4 % (11.5-14.5) Platelet Count 248 x10^3/uL (140-400) Neutrophils (%) (Auto) 70 % (31-73) Lymphocytes (%) (Auto) 16 % (24-48) Monocytes (%) (Auto) 8 % (0-9) Eosinophils (%) (Auto) 5 % (0-3) Basophils (%) (Auto) 1 % (0-3) Neutrophils # (Auto) 6.3 x10^3/uL (1.8-7.7) Lymphocytes # (Auto) 1.4 x10^3/uL (1.0-4.8) Monocytes # (Auto) 0.7 x10^3/uL (0.0-1.1) Eosinophils # (Auto) 0.4 x10^3/uL (0.0-0.7) Basophils # (Auto) 0.1 x10^3/uL (0.0-0.2) Sodium Level 142 mmol/L (136-145) Potassium Level 3.5 mmol/L (3.5-5.1) Chloride Level 106 mmol/L (98-107) Carbon Dioxide Level 32 mmol/L (21-32) Anion Gap 4 (6-14) Blood Urea Nitrogen 28 mg/dL (8-26) Creatinine 1.9 mg/dL (0.7-1.3) Estimated GFR (Cockcroft-Gault) 35.0 Glucose Level 79 mg/dL (70-99) Calcium Level 8.4 mg/dL (8.5-10.1) Creatine Kinase 39 U/L (39-308) Micro - RUN DATE: 03/28/21 [facility] *LIVE* PAGE 1 RUN TIME: 924 Specimen Inquiry - PATIENT: JOSE MERCADO ACCT: [id number] LOC: [address] [place] [address] U: [id number] AGE/SX: 70/M ROOM: 665 RE03/22/[address]: TEE ORTIZ III, DO : 1950 BED: 1 DIS: STATUS: ADM IN TLOC: SPEC #: [id number] YENI: 03/23/21 STATUS: COMP REQ #: [id number] RECD: 03/23/[address]: TEE ORTIZ III, DO SOURCE: FOOT ENTR: 03/23/[address]: JODI CARABALLO DO [facility]: [facility] DECKER MD,MATY BRO,CURTIS Conrad MD NO PCP ORDERED: ANAER/AERCITLALI/DAKOTA COMMENTS: Has specimen been collected/obtained R 5TH TOE WOUND Procedure Result GRAM STAIN Final Final GRAM NEGATIVE RODS:MANY GRAM POSITIVE COCCI:MANY SQUAMOUS EPI CELL:FEW PMN (WBCs):MODERATE Unless otherwise specified, Testing Performed by: [address] [id number] For Inquires, the Physician may contact the Microbiology department at [phone] ANAEROBIC-AEROBIC CULTURE Final Final MIXED AEROBIC AND ANAEROBIC GUALBERTO on 03/25/21 at 1210 INCLUDING: FEW GRAM NEGATIVE RODS on 03/24/21 at 0901 FINAL ID= [PROTEUS MIRABILIS], SEE [place]QUERIA ON [id number] RARE [STAPHYLOCOCCUS EPIDERMIDIS] FEW [CORYNEBACTERIUM AMYCOLATUM] FEW [ENTEROCOCCUS AVIUM] MODERATE [BACTEROIDES THETAIOTAOMICRON G] MODERATE [ANAEROCOCCUS VAGINALIS] MANY [PREVOTELLA SPECIES] PROTEUS MIRABILIS STAPHYLOCOCCUS EPIDERMIDIS CORYNEBACTERIUM AMYCOLATUM ENTEROCOCCUS AVIUM BACTEROIDES THETAIOTAOMICRON G ANAEROCOCCUS VAGINALIS PREVOTELLA SPECIES Unless otherwise specified, Testing Performed by: [address] [address] RUN DATE: 03/28/21 [facility] *LIVE* PAGE 2 RUN TIME: 924 Specimen Inquiry SPEC: [id number] PATIENT: JOSE MERCADO [id number] (Continued) Procedure Result CONTINUED ON NEXT PAGE RUN DATE: 03/28/21 [facility] *LIVE* PAGE 3 RUN TIME: 0925 Specimen Inquiry SPEC: [id number] PATIENT: JESSJOSE [id number] (Continued) -------- ---- Procedure Result ANAEROBIC-AEROBIC CULTURE Final (continued) For Inquires, the Physician may contact the Microbiology department at [phone] RUN DATE: 03/28/21 [facility] *LIVE* PAGE 1 RUN TIME: 0920 Specimen Inquiry PATIENT: JOSE MERCADO ACCT: [id number] LOC: [address] [place] [address] U: [id number] AGE/SX: 70/M ROOM: [facility] RE03/22/[address]: TEE ORTIZ III, DO : 1950 BED: 1 DIS: STATUS: ADM IN TLOC: SPEC #: [id number] YENI: 03/23/21 STATUS: COMP REQ #: [id number] RECD: 03/23/[address]: TEE ORTIZ III, DO SOURCE: FOOT ENTR: 03/23/[address]: JODI CARABALLO DO SPDESC: WOUND NAVARRO JJ MD,MATY BRO,CURTIS Conrad MD NO PCP ORDERED: ANAER/AEROB/GS COMMENTS: Has specimen been collected/obtained? Y R HEEL WOUND Procedure Result GRAM STAIN Final Final GRAM NEGATIVE RODS:RARE GRAM POSITIVE COCCI:RARE RBC:MODERATE SQUAMOUS EPI CELL:RARE PMN (WBCs):RARE Unless otherwise specified, Testing Performed by: [address] [id number] For Inquires, the Physician may contact the Microbiology department at [phone] ANAEROBIC-AEROBIC CULTURE Final Final MIXED AEROBIC AND ANAEROBIC GUALBERTO on 03/25/21 at 1206 INCLUDING: FEW GRAM NEGATIVE RODS on 03/24/21 at 0855 FINAL ID= [PROTEUS MIRABILIS] FEW [BACTEROIDES OVATUS GROUP] on 03/25/21 at 1206 MODERATE [ANAEROCOCCUS VAGINALIS] on 03/25/21 at 1207 FEW Mixed skin gualberto isolated on 03/27/21 at 1055 PROTEUS MIRABILIS UNIDENTIFIED ORGANISM BACTEROIDES OVATUS GROUP ANAEROCOCCUS VAGINALIS ANTIMICROBIAL SUSCEPTIBILITY Final Comment NEG TAQUERIA 56 PROTEUS MIRABILIS ANTIBIOTIC RESULT INTERPRETATION AMPICILLIN/SULBACTAM <=4/2 S AMIKACIN <=16 S RUN DATE: 03/28/21 [facility] *LIVE* PAGE 2 RUN TIME: 0920 Specimen Inquiry SPEC: [id number] PATIENT: JOSE MERCADO [id number] (Continued) Procedure Result CONTINUED ON NEXT PAGE RUN DATE: 03/28/21 [facility] *LIVE* PAGE 3 RUN TIME: 0920 Specimen Inquiry SPEC: [id number] PATIENT: JOSE MERCADO [id number] (Continued) Procedure Result - ANTIMICROBIAL SUSCEPTIBILITY Final (continued) AMPICILLIN <=8 S AMOXICILLIN/K CLAVULANATE <=8/4 S AZTREONAM <=4 S CEFTRIAXONE <=1 S CEFTAZIDIME <=1 S CEFOTAXIME <=2 S CEFOXITIN <=8 S CEFAZOLIN <=2 S CIPROFLOXACIN <=0.25 S CEFEPIME <=2 S CEFUROXIME <=4 S CEFTAZIDIME/AVIBACTAM <=4 S ERTAPENEM <=0.5 S GENTAMICIN <=2 S LEVOFLOXACIN <=0.5 S MEROPENEM <=1 S PIPERACILLIN/TAZOBACTAM <=8 S TRIMETHOPRIM/SULFAMETHOXAZOLE <=0.5/9.5 S TETRACYCLINE <=4 R* TOBRAMYCIN <=2 S Unless otherwise specified, Testing Performed by: [address] [address] For Inquires, the Physician may contact the Microbiology department at [phone] Objective: Assessment: Chronic right fifth metatarsal nonhealing wound, Foot xray suggests osteomyelitis right 5th metatarsal bone,concern for adequate healing with exposed bone Follow-up cultures polymicrobial including Proteus mirabilis and Enterococcus avium Discussed with micro lab Enterococcus avium susceptibilities are not available due to polymicrobial growth on cultures PAD Chronic right plantar ulcerations, Chronic lymphedema, chronic venous stasis, atrial fibrillation,status post PPM, CHF, hypertension, hyperlipidemia, osteoarthritis, History of glaucoma chest pain, elevated troponin poa, self-care deficit. 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 ,unsuccessful [employer] recanalization via antegrade approach March 28, 2021 Swab cultures MODERATE [BACTEROIDES THETAIOTAOMICRON G] MODERATE [ANAEROCOCCUS VAGINALIS] MANY [PREVOTELLA SPECIES] PROTEUS MIRABILIS STAPHYLOCOCCUS EPIDERMIDIS CORYNEBACTERIUM AMYCOLATUM ENTEROCOCCUS AVIUM BACTEROIDES THETAIOTAOMICRON G ANAEROCOCCUS VAGINALIS PREVOTELLA SPECIES Plan: Plan of Care Continue daptomycin and Zosyn May need renal dosing pharmacy to assist Monitor labs and cultures When ready for discharge patient will need daptomycin and IV Invanz, first dose of Invanz here before discharge Continue local wound care as directed Strict offload If patient does not get optimal response with above antibiotic treatment will need surgical debridement Vascular recommendations reviewed. MRI prior to proceeding with any surgical debridement or removal of bone to confirm osteomyelitis. Patient remains poor candidate for appropriate healing due to underlying comorbidities Optimal edema control PT and OT as tolerated PICC boiler reliner Pt is awaiting placement Patient will need follow-up in ID clinic as scheduled D/W BRIAN BOWMAN MD Apr 03, 2021 09:47
[2021-04-03 11:11] VITALS: BP 104/70
[2021-04-03] MEDS: DAPTOmycin (GENERIC) IVPB 560 MG in IV NORMAL SALINE 50ML 50 ML IV SCH (11:37)
[2021-04-03 14:12] VITALS: BP 101/57
--- NOTE | 2021-04-03 15:36 | PDOC ---
[facility] PROGRESS NOTE Date of Service DOS: DATE: 04/03/21 TIME: 15:35 Chief Complaint Chief Complaint Atrial fibrillation with RVR CHF HTN HLP Osteoarthritis BL extremity chronic wounds and ulcers Chronic Lymphedema Chronic venous stasis Right fifth metatarsal, possible osteomyelitis Inability to care for self ANTWAN (unknown baseline) Severe malnutrition History of Present Illness History of Present Illness 04/03, in good spiritins, no events, still weak, plan LTAC placement if able, cont abx Pt and OT he is unable to transfer Vitals/I&O Vitals/I&O: Vital Signs Date Time Temp Pulse Resp B/P (MAP) Pulse Ox O2 Delivery O2 Flow Rate FiO2 04/03/21 14:12 97.8 70 20 101/57 (72) 95 Room Air 97.8 04/03/21 08:05 2.0 I & O 04/02/21 04/02/21 04/03/21 15:00 23:00 07:00 Intake Total 180 ml 1050 ml 50 ml Output Total 300 ml 820 ml 250 ml Balance -120 ml 230 ml -200 ml Physical Exam Physical Exam: GENERAL: Alert, oriented x3 male, lying in bed comfortably, in no acute distress. HEENT: Normocephalic, atraumatic. Anicteric. No thrush. Oral mucosa moist. Right eye irritation improved NECK: Supple, no JVD. LUNGS: Clear bilaterally. No wheezing. HEART: RRR, S1, S2. No gallops or murmurs. Chest wall PPM site looks okay. ABDOMEN: Soft, obese. Bowel sounds present. Positive bowel sounds. EXTREMITIES: Bilateral chronic lymphedema and venous stasis. SKIN: Plantar surface on the right foot dressing taken down. Two small wounds. Lateral wound packed, probes through the bone. Wound is clean and healthy. No surrounding redness. No gross purulence. Heel ulcer is clean superficial. NEUROLOGIC: Alert, oriented x 3, grossly nonfocal. PSYCHIATRIC: Calm and cooperative. General: mild distress Heart: Regular rate Lungs: Clear Abdomen: Normal bowel sounds Extremities: No cyanosis, Other (LE lymphedema weeping) Skin: Other (LE venous dermaititis, chronic lyphemdema with right foot erythema) Labs Labs: Laboratory Tests Test 04/03/21 05:40 White Blood Count 9.0 x10^3/uL (4.0-11.0) Red Blood Count 4.65 x10^6/uL (4.30-5.70) Hemoglobin 13.3 g/dL (13.0-17.5) Hematocrit 40.5 % (39.0-53.0) Mean Corpuscular Volume 87 fL (79-100) Mean Corpuscular Hemoglobin 29 pg (25-35) Mean Corpuscular Hemoglobin Concent 33 g/dL (31-37) Red Cell Distribution Width 16.4 % (11.5-14.5) Platelet Count 248 x10^3/uL (140-400) Neutrophils (%) (Auto) 70 % (31-73) Lymphocytes (%) (Auto) 16 % (24-48) Monocytes (%) (Auto) 8 % (0-9) Eosinophils (%) (Auto) 5 % (0-3) Basophils (%) (Auto) 1 % (0-3) Neutrophils # (Auto) 6.3 x10^3/uL (1.8-7.7) Lymphocytes # (Auto) 1.4 x10^3/uL (1.0-4.8) Monocytes # (Auto) 0.7 x10^3/uL (0.0-1.1) Eosinophils # (Auto) 0.4 x10^3/uL (0.0-0.7) Basophils # (Auto) 0.1 x10^3/uL (0.0-0.2) Sodium Level 142 mmol/L (136-145) Potassium Level 3.5 mmol/L (3.5-5.1) Chloride Level 106 mmol/L (98-107) Carbon Dioxide Level 32 mmol/L (21-32) Anion Gap 4 (6-14) Blood Urea Nitrogen 28 mg/dL (8-26) Creatinine 1.9 mg/dL (0.7-1.3) Estimated GFR (Cockcroft-Gault) 35.0 Glucose Level 79 mg/dL (70-99) Calcium Level 8.4 mg/dL (8.5-10.1) Creatine Kinase 39 U/L (39-308) Assessment and Plan Assessmemt and Plan Problems Medical Problems: (1) Atrial fibrillation with rapid ventricular response Status: Acute (2) Chest pain Status: Acute (3) Elevated troponin I level Status: Acute (4) Lymphedema of both lower extremities Status: Acute (5) Self-care deficit Status: Acute Comment Review of Relevant I have reviewed the following items marlene (where applicable) has been applied. Justifications for Admission Other Justification LIANET MENON MD Apr 03, 2021 15:36
--- NOTE | 2021-04-03 17:06 | PDOC ---
PROGRESS NOTES Date of Service DATE: 04/03/21 TIME: 17:04 Subjective Subjective Patient seen and examined Objective Objective Vital Signs Date Time Temp Pulse Resp B/P (MAP) Pulse Ox O2 Delivery O2 Flow Rate FiO2 04/03/21 14:12 97.8 70 20 101/57 (72) 95 Room Air 97.8 04/03/21 08:05 2.0 Intake and Output 04/03/21 07:00 Intake Total 1280 ml Output Total 1370 ml Balance -90 ml Intake Oral 1180 ml IV Total 100 ml Output Urine Total 1370 ml # Bowel Movements 3 Physical Exam Abdomen: Normal bowel sounds Heart: Regular rate General: No acute distress, mild distress Lungs: Other (Mildly decreased breath sounds) Assessment Assessment Problems Medical Problems: (1) Atrial fibrillation with rapid ventricular response Status: Acute (2) Chest pain Status: Acute (3) Elevated troponin I level Status: Acute (4) Lymphedema of both lower extremities Status: Acute (5) Self-care deficit Status: Acute PAFIB; Maintaining SR. continue present medical treatment. On metoprolol and amiodarone as well as Eliquis Chronic diastolic CHF: compensated. Hypertension; controlled CAD: no past intervention, clinically stable PAD with chronic lymphedema and venous stasis. Followed by ID. SSS with PPM (Biotronik) CKD; Cr stable HLD; statin Mild troponin elevation: 0.1 suspect demand mediated likely due to RVR Comment Review of Relevant I have reviewed the following items marlene (where applicable) has been applied. Labs Laboratory Tests Test 04/02/21 05:30 04/03/21 05:40 White Blood Count 8.3 x10^3/uL (4.0-11.0) 9.0 x10^3/uL (4.0-11.0) Red Blood Count 4.79 x10^6/uL (4.30-5.70) 4.65 x10^6/uL (4.30-5.70) Hemoglobin 13.5 g/dL (13.0-17.5) 13.3 g/dL (13.0-17.5) Hematocrit 41.6 % (39.0-53.0) 40.5 % (39.0-53.0) Mean Corpuscular Volume 87 fL (79-100) 87 fL (79-100) Mean Corpuscular Hemoglobin 28 pg (25-35) 29 pg (25-35) Mean Corpuscular Hemoglobin Concent 32 g/dL (31-37) 33 g/dL (31-37) Red Cell Distribution Width 15.9 % (11.5-14.5) 16.4 % (11.5-14.5) Platelet Count 255 x10^3/uL (140-400) 248 x10^3/uL (140-400) Neutrophils (%) (Auto) 70 % (31-73) 70 % (31-73) Lymphocytes (%) (Auto) 15 % (24-48) 16 % (24-48) Monocytes (%) (Auto) 8 % (0-9) 8 % (0-9) Eosinophils (%) (Auto) 6 % (0-3) 5 % (0-3) Basophils (%) (Auto) 0 % (0-3) 1 % (0-3) Neutrophils # (Auto) 5.8 x10^3/uL (1.8-7.7) 6.3 x10^3/uL (1.8-7.7) Lymphocytes # (Auto) 1.3 x10^3/uL (1.0-4.8) 1.4 x10^3/uL (1.0-4.8) Monocytes # (Auto) 0.7 x10^3/uL (0.0-1.1) 0.7 x10^3/uL (0.0-1.1) Eosinophils # (Auto) 0.5 x10^3/uL (0.0-0.7) 0.4 x10^3/uL (0.0-0.7) Basophils # (Auto) 0.0 x10^3/uL (0.0-0.2) 0.1 x10^3/uL (0.0-0.2) Sodium Level 142 mmol/L (136-145) 142 mmol/L (136-145) Potassium Level 3.5 mmol/L (3.5-5.1) 3.5 mmol/L (3.5-5.1) Chloride Level 104 mmol/L (98-107) 106 mmol/L (98-107) Carbon Dioxide Level 31 mmol/L (21-32) 32 mmol/L (21-32) Anion Gap 7 (6-14) 4 (6-14) Blood Urea Nitrogen 27 mg/dL (8-26) 28 mg/dL (8-26) Creatinine 1.8 mg/dL (0.7-1.3) 1.9 mg/dL (0.7-1.3) Estimated GFR (Cockcroft-Gault) 37.3 35.0 Glucose Level 84 mg/dL (70-99) 79 mg/dL (70-99) Calcium Level 8.5 mg/dL (8.5-10.1) 8.4 mg/dL (8.5-10.1) Creatine Kinase 39 U/L (39-308) Laboratory Tests Test 04/03/21 05:40 White Blood Count 9.0 x10^3/uL (4.0-11.0) Red Blood Count 4.65 x10^6/uL (4.30-5.70) Hemoglobin 13.3 g/dL (13.0-17.5) Hematocrit 40.5 % (39.0-53.0) Mean Corpuscular Volume 87 fL (79-100) Mean Corpuscular Hemoglobin 29 pg (25-35) Mean Corpuscular Hemoglobin Concent 33 g/dL (31-37) Red Cell Distribution Width 16.4 % (11.5-14.5) Platelet Count 248 x10^3/uL (140-400) Neutrophils (%) (Auto) 70 % (31-73) Lymphocytes (%) (Auto) 16 % (24-48) Monocytes (%) (Auto) 8 % (0-9) Eosinophils (%) (Auto) 5 % (0-3) Basophils (%) (Auto) 1 % (0-3) Neutrophils # (Auto) 6.3 x10^3/uL (1.8-7.7) Lymphocytes # (Auto) 1.4 x10^3/uL (1.0-4.8) Monocytes # (Auto) 0.7 x10^3/uL (0.0-1.1) Eosinophils # (Auto) 0.4 x10^3/uL (0.0-0.7) Basophils # (Auto) 0.1 x10^3/uL (0.0-0.2) Sodium Level 142 mmol/L (136-145) Potassium Level 3.5 mmol/L (3.5-5.1) Chloride Level 106 mmol/L (98-107) Carbon Dioxide Level 32 mmol/L (21-32) Anion Gap 4 (6-14) Blood Urea Nitrogen 28 mg/dL (8-26) Creatinine 1.9 mg/dL (0.7-1.3) Estimated GFR (Cockcroft-Gault) 35.0 Glucose Level 79 mg/dL (70-99) Calcium Level 8.4 mg/dL (8.5-10.1) Creatine Kinase 39 U/L (39-308) Microbiology 03/23/21 Gram Stain - Final, Complete 03/23/21 Aerobic and Anaerobic Culture - Final, Complete 03/23/21 Antimicrobic Susceptibility - Final, Complete 03/23/21 Urine Culture - Final, Complete 03/23/21 Antimicrobic Susceptibility - Final, Complete 03/22/21 Blood Culture - Final, Complete NO GROWTH AFTER 5 DAYS Medications Current Medications Aspirin (Aspirin Chewable) 324 mg 1X ONCE PO Last administered on 03/22/21at 12:43; Start 03/22/21 at 12:30; Stop 03/22/21 at 12:31; Status DC Diltiazem HCl (Cardizem Iv Push) 10 mg 1X ONCE IVP Last administered on 03/22/21at 12:44; Start 03/22/21 at 12:15; Stop 03/22/21 at 12:17; Status DC Diltiazem HCl 125 mg/Sodium Chloride 125 ml @ 5 mls/hr CONT PRN IV SEE PROTOCOL; Start 03/22/21 at 13:22; Stop 03/22/21 at 13:45; Status DC Amiodarone HCl 450 mg/Dextrose 259 ml @ 0 mls/hr CONT PRN IV SEE I/O RECORD; Start 03/22/21 at 13:45; Stop 03/23/21 at 13:45; Status DC Sodium Chloride 500 ml @ 500 mls/hr 1X ONCE IV Last administered on 03/22/21at 13:56; Start 03/22/21 at 14:00; Stop 03/22/21 at 14:59; Status DC Enoxaparin Sodium (Lovenox 100mg Syringe) 100 mg 1X ONCE SQ Last administered on 03/22/21at 15:21; Start 03/22/21 at 14:15; Stop 03/22/21 at 14:18; Status DC Ondansetron HCl (Zofran) 4 mg PRN Q8HRS PRN IVP NAUSEA/VOMITING; Start 03/22/21 at 14:30; Stop 03/23/21 at 14:29; Status DC Ondansetron HCl (Zofran) 4 mg PRN Q6HRS PRN IVP NAUSEA/VOMITING; Start 03/22/21 at 16:00 Calcium Carbonate/ Glycine (Tums) 500 mg PRN Q3HRS PRN PO UPSET STOMACH; Start 03/22/21 at 16:00 Zolpidem Tartrate (Ambien) 5 mg PRN QHS PRN PO INSOMNIA, MAY REPEAT IN 1HR; Start 03/22/21 at 16:00 Info (Non-Icu Electrolyte Protocol) 1 ea PRN DAILY PRN MC SEE COMMENTS; Start 03/22/21 at 16:00 Oxycodone HCl (Roxicodone) 5 mg PRN Q3HRS PRN PO BREAKTHROUGH PAIN; Start 03/22/21 at 16:00 Oxycodone/ Acetaminophen (Percocet 5/325) 1 tab PRN Q4HRS PRN PO MILD PAIN, 1ST CHOICE; Start 03/22/21 at 16:00 Oxycodone/ Acetaminophen (Percocet 5/325) 2 tab PRN Q4HRS PRN PO MODERATE PAIN, SEVERE PAIN; Start 03/22/21 at 16:00 Acetaminophen (Tylenol) 650 mg PRN Q6HRS PRN PO Headaches, Temp > 101.5F; Start 03/22/21 at 16:00 Senna/Docusate Sodium (Senna Plus) 1 tab BID PO Last administered on 04/03/21at 08:21; Start 03/22/21 at 21:00 Heparin Sodium (Porcine) (Heparin Sodium) 5,000 unit Q8HRS SQ Last administered on 03/29/21at 21:18; Start 03/22/21 at 22:00; Stop 03/29/21 at 23:13; Status DC Aspirin (Ecotrin) 81 mg DAILY PO Last administered on 04/03/21at 08:21; Start 03/23/21 at 09:00 Atorvastatin Calcium (Lipitor) 20 mg QHS PO Last administered on 04/02/21at 21:19; Start 03/22/21 at 21:00 Latanoprost (Xalatan) 1 drop QHS OU Last administered on 04/02/21at 21:20; Start 03/22/21 at 21:00 Brimonidine Tartrate (Alphagan) 1 drop BID OD Last administered on 04/03/21at 08:22; Start 03/22/21 at 21:00 Timolol Maleate (Timoptic 0.25% Ophth) 1 drop BID OU Last administered on 04/03/21at 08:22; Start 03/22/21 at 21:00 Digoxin (Lanoxin) 250 mcg 1X ONCE IV Last administered on 03/22/21at 17:29; Start 03/22/21 at 16:30; Stop 03/22/21 at 16:31; Status DC Influenza Virus Vaccine Quadrival (Flulaval Quad [id number] Syringe) 0.5 ml ONCE ONCE VAX IM Last administered on 03/23/21at 10:06; Start 03/23/21 at 09:00; Stop 03/23/21 at 09:01; Status DC Metoprolol Tartrate (Lopressor) 25 mg 1X ONCE PO Last administered on 03/23/21at 16:17; Start 03/23/21 at 12:45; Stop 03/23/21 at 12:48; Status DC Metoprolol Tartrate (Lopressor) 25 mg BID PO Last administered on 04/03/21at 08:20; Start 03/23/21 at 21:00 Piperacillin Sod/ Tazobactam Sod 3.375 gm/Sodium Chloride 50 ml @ 100 mls/hr Q6HRS IV Last administered on 04/03/21at 13:01; Start 03/23/21 at 16:00 Vancomycin HCl 1.5 gm/Sodium Chloride 500 ml @ 250 mls/hr Q12H IV ; Start 03/23/21 at 15:45; Status UNV Vancomycin HCl (Vanco Per Pharmacy) 1 each PRN DAILY PRN MC SEE COMMENTS Last administered on 03/27/21at 14:27; Start 03/23/21 at 15:45; Stop 03/28/21 at 10:19; Status DC Piperacillin Sod/ Tazobactam Sod (Zosyn Per Pharmacy) 1 each PRN DAILY PRN MC SEE COMMENTS; Start 03/23/21 at 15:45 Vancomycin HCl 2 gm/Sodium Chloride 500 ml @ 250 mls/hr 1X ONCE IV Last administered on 03/23/21at 18:14; Start 03/23/21 at 17:00; Stop 03/23/21 at 18:59; Status DC Vancomycin HCl 1.5 gm/Sodium Chloride 500 ml @ 250 mls/hr Q18H IV Last administered on 03/24/21at 13:45; Start 03/24/21 at 12:00; Stop 03/25/21 at 06:16; Status DC Vancomycin HCl (Vancomycin Trough Level) 1 each 1X ONCE MC ; Start 03/25/21 at 05:30; Stop 03/25/21 at 05:31; Status DC Furosemide (Lasix) 40 mg 1X ONCE IVP Last administered on 03/23/21at 21:29; Start 03/23/21 at 19:00; Stop 03/23/21 at 19:01; Status DC Furosemide (Lasix) 40 mg DAILY IVP Last administered on 03/29/21at 07:52; Start 03/24/21 at 09:00; Stop 03/29/21 at 23:09; Status DC Lactobacillus Rhamnosus (Culturelle) 1 cap BID PO Last administered on 04/03/21at 08:20; Start 03/24/21 at 10:00 Amiodarone HCl 150 mg/Dextrose 103 ml @ 600 mls/hr 1X ONCE IV Last administered on 03/24/21at 13:15; Start 03/24/21 at 13:15; Stop 03/25/21 at 0 9:51; Status DC Amiodarone HCl 450 mg/Dextrose 259 ml @ 33 mls/hr CONT PRN IV SEE I/O RECORD Last administered on 03/25/21at 03:46; Start 03/24/21 at 13:15; Stop 03/25/21 at 09:51; Status DC Vancomycin HCl 1.5 gm/Sodium Chloride 500 ml @ 250 mls/hr Q12H IV ; Start 03/25/21 at 07:00; Status Cancel Amiodarone HCl (Cordarone) 200 mg DAILY PO Last administered on 04/03/21at 0 8:21; Start 03/25/21 at 10:00 Lidocaine HCl (Buffered Lidocaine 1%) 3 ml STK-MED ONCE .ROUTE ; Start 03/25/21 at 10:20; Stop 03/25/21 at 10:20; Status DC Lidocaine HCl (Buffered Lidocaine 1%) 3 ml 1X ONCE INJ Last administered on 03/25/21at 10:45; Start 03/25/21 at 10:45; Stop 03/25/21 at 10:46; Status DC Vancomycin HCl 1.5 gm/Sodium Chloride 500 ml @ 250 mls/hr Q18H IV Last administered on 03/27/21at 17:55; Start 03/25/21 at 11:30; Stop 03/28/21 at 10:19; Status DC Vancomycin HCl (Vancomycin Trough Level) 1 each 1X ONCE MC Last administered on 03/26/21at 23:00; Start 03/26/21 at 23:00; Stop 03/26/21 at 23:01; Status DC Daptomycin 560 mg/ Sodium Chloride 50 ml @ 100 mls/hr Q24H IV Last administered on 04/03/21at 11:37; Start 03/28/21 at 11:00 Iodixanol (Visipaque 320) 100 ml STK-MED ONCE .ROUTE ; Start 03/28/21 at 11:06; Stop 03/28/21 at 11:06; Status DC Lidocaine HCl (Lidocaine 1% 20ml Vial) 20 ml STK-MED ONCE .ROUTE ; Start 03/28/21 at 11:54; Stop 03/28/21 at 11:54; Status DC Heparin Sodium/ Sodium Chloride 1,000 ml @ As Directed STK-MED ONCE .ROUTE ; Start 03/28/21 at 11:54; Stop 03/28/21 at 11:54; Status DC Midazolam HCl (Versed) 5 mg STK-MED ONCE .ROUTE ; Start 03/28/21 at 12:01; Stop 03/28/21 at 12:02; Status DC Fentanyl Citrate (Fentanyl 2ml Vial) 100 mcg STK-MED ONCE .ROUTE ; Start 03/28/21 at 12:02; Stop 03/28/21 at 12:02; Status DC Verapamil HCl (Verapamil) 5 mg STK-MED ONCE .ROUTE ; Start 03/28/21 at 12:02; Stop 03/28/21 at 12:02; Status DC Heparin Sodium (Porcine) (Heparin Sodium) 10,000 unit STK-MED ONCE .ROUTE ; Start 03/28/21 at 12:02; Stop 03/28/21 at 12:02; Status DC Nitroglycerin (Nitroglycerin) 200 mcg STK-MED ONCE .ROUTE ; Start 03/28/21 at 12:03; Stop 03/28/21 at 12:03; Status DC Heparin Sodium/ Sodium Chloride (HEPARIN for ARTERIAL LINE FLUSH) 1,000 unit 1X ONCE IART Last administered on 03/28/21at 13:35; Start 03/28/21 at 12:45; Stop 03/28/21 at 12:46; Status DC Heparin Sodium/ Sodium Chloride (HEPARIN for ARTERIAL LINE FLUSH) 1,000 unit 1X ONCE IART Last administered on 03/28/21at 13:39; Start 03/28/21 at 12:45; Stop 03/28/21 at 12:46; Status DC Midazolam HCl (Versed) 5 mg 1X ONCE IV Last administered on 03/28/21at 13:41; Start 03/28/21 at 12:45; Stop 03/28/21 at 12:46; Status DC Fentanyl Citrate (Fentanyl 2ml Vial) 100 mcg 1X ONCE IV Last administered on 03/28/21at 13:41; Start 03/28/21 at 12:45; Stop 03/28/21 at 12:46; Status DC Iodixanol (Visipaque 320) 100 ml 1X ONCE IART Last administered on 03/28/21at 13:39; Start 03/28/21 at 12:45; Stop 03/28/21 at 12:46; Status DC Lidocaine HCl (Lidocaine 1% 20ml Vial) 20 ml 1X ONCE INJ Last administered on 03/28/21at 13:39; Start 03/28/21 at 12:45; Stop 03/28/21 at 12:46; Status DC Info (CONTRAST GIVEN -- Rx MONITORING) 1 each PRN DAILY PRN MC SEE COMMENTS; Start 03/28/21 at 12:45; Stop 03/30/21 at 12:44; Status DC Heparin Sodium (Porcine) (Heparin Sodium) 5,000 unit 1X ONCE IV Last administered on 03/28/21at 13:42; Start 03/28/21 at 13:00; Stop 03/28/21 at 13:02; Status DC Heparin Sodium/ Sodium Chloride 500 ml @ As Directed STK-MED ONCE .ROUTE ; Start 03/28/21 at 13:44; Stop 03/28/21 at 13:45; Status DC Potassium Chloride (Klor-Con) 40 meq 1X ONCE PO Last administered on 03/28/21at 16:32; Start 03/28/21 at 15:15; Stop 03/28/21 at 15:16; Status DC Loperamide HCl (Imodium) 2 mg PRN Q15MIN PRN PO DIARRHEA Last administered on 03/28/21at 17:40; Start 03/28/21 at 17:45 Verapamil HCl (Verapamil) 5 mg STK-MED ONCE .ROUTE ; Start 03/28/21 at 12:30; Stop 03/29/21 at 08:54; Status DC Apixaban (Eliquis) 2.5 mg BID PO Last administered on 04/01/21at 09:11; Start 03/30/21 at 09:00; Stop 04/01/21 at 11:05; Status DC Furosemide (Lasix) 40 mg DAILY PO Last administered on 04/03/21at 08:21; Start 03/30/21 at 09:00 Info (Anti-Coagulation Monitoring By Pharmacy) 1 each PRN DAILY PRN MC PER PROTOCOL Last administered on 03/29/21at 23:50; Start 03/29/21 at 23:15 Potassium Chloride (Klor-Con) 40 meq 1X ONCE PO Last administered on 03/30/21at 11:29; Start 03/30/21 at 12:00; Stop 03/30/21 at 12:01; Status DC Apixaban (Eliquis) 5 mg BID PO Last administered on 04/03/21at 08:20; Start 04/01/21 at 21:00 Active Scripts Active Atorvastatin Calcium 20 Mg Tablet 20 Mg PO QHS Reported Aspirin Ec (Aspirin) 81 Mg Tablet. 1 Tab PO DAILY Combigan Eye Drops (Brimonidine Tartrate/Timolol) 5 Ml Drops 5 Ml OP BID Latanoprost 2.5 Ml Drops 1 Drop EACHEYE QHS Vitals/I & O Vital Sign - Last 24 Hours 04/02/21 04/02/21 04/02/21 04/02/21 19:22 19:52 21:19 22:35 Temp 97.9 98.3 97.9 98.3 Pulse 70 70 73 Resp 16 18 B/P (MAP) 125/64 (84) 125/64 132/68 (89) Pulse Ox 98 97 O2 Delivery Room Air Room Air Room Air 04/03/21 04/03/21 04/03/21 04/03/21 02:41 07:27 08:05 08:20 Temp 98.1 97.8 98.1 97.8 Pulse 74 78 78 Resp 16 16 B/P (MAP) 131/66 (87) 114/66 (82) 114/66 Pulse Ox 96 95 O2 Delivery Room Air Room Air Room Air O2 Flow Rate 2.0 04/03/21 04/03/21 04/03/21 08:21 11:11 14:12 Temp 98.0 97.8 98.0 97.8 Pulse 78 66 70 Resp 18 20 B/P (MAP) 114/66 104/70 (81) 101/57 (72) Pulse Ox 96 95 O2 Delivery Room Air Room Air Intake and Output 04/02/21 04/02/21 04/03/21 15:00 23:00 07:00 Intake Total 180 ml 1050 ml 50 ml Output Total 300 ml 820 ml 250 ml Balance -120 ml 230 ml -200 ml Justifications for Admission Other Justification Nutrition Consultation Dietary Evaluation: Recommendations by RD: Dietary education by RD, Add supplement feedings Comments: Cardiac jacoby bid REC mvi Expected Outcomes/Goals: to meet >75% est nutr needs improved wound status Goals ongoing Malnutrition Findings: Body Fat Depletion (Non Severe: Mod to Severe Weight Status: Obese Fluid Accumulation (Non-Severe: Mild depletion KRISTEL BALDERRAMA MD Apr 03, 2021 17:06
[2021-04-03 19:20] VITALS: BP 106/62
[2021-04-03 22:37] VITALS: BP 140/64
[2021-04-03] MEDS: LATANOPROST 0.005% OPHTH SOLUTION 2.5ML BOTTLE. OU SCH (23:15)
[2021-04-03] MEDS: ATORVASTATIN CALCIUM 20 MG TABLET PO SCH (23:16)
[2021-04-04 02:35] VITALS: BP 120/62
[2021-04-04] MEDS: PIPERACILLIN/TAZOBACTAM 3.375 GM in IV NORMAL SALINE 50ML 50 ML IV SCH ×4 (06:12→23:08)
[2021-04-04 06:26] VITALS: BP 92/61
[2021-04-04 06:48] LABS: BASO # 0.2 x10^3/uL (0.0-0.2); BASO % 2 % (0-3); EOS # 0.4 x10^3/uL (0.0-0.7); EOS % 4 % (0-3); HEMATOCRIT 40.5 % (39.0-53.0); HEMOGLOBIN 13.1 g/dL (13.0-17.5); LYMPH # 1.7 x10^3/uL (1.0-4.8); LYMPH % 19 % (24-48); MEAN CORPUSCULAR HEMOGLOBIN 28 pg (25-35); MEAN CORPUSCULAR HGB CONC 32 g/dL (31-37); MEAN CORPUSCULAR VOLUME 87 fL (79-100); MONO # 0.8 x10^3/uL (0.0-1.1); MONO % 9 % (0-9); NEUT % 67 % (31-73); PLATELET COUNT 258 x10^3/uL (140-400); RED BLOOD COUNT 4.64 x10^6/uL (4.30-5.70); RED CELL DISTRIBUTION WIDTH 16.5 % (11.5-14.5)
[2021-04-04 07:00] LABS: CALCIUM 8.6 mg/dL (8.5-10.1); CREATININE 1.8 mg/dL (0.7-1.3); GFR 37.3; POTASSIUM 3.4 mmol/L (3.5-5.1)
--- NOTE | 2021-04-04 08:38 | PDOC ---
Infectious Disease Note Subjective: Subjective Patient without complaints Vital Signs: Vital Signs Vital Signs Date Time Temp Pulse Resp B/P (MAP) Pulse Ox O2 Delivery O2 Flow Rate FiO2 04/04/21 06:26 98.1 78 16 92/61 (71) 96 Room Air 98.1 04/03/21 08:05 2.0 Physical Exam: PHYSICAL EXAM GENERAL: Alert, oriented x3 male, lying in bed comfortably, in no acute distress. HEENT: Normocephalic, atraumatic. Anicteric. No thrush. Oral mucosa moist. Right eye irritation improved NECK: Supple, no JVD. LUNGS: Clear bilaterally. No wheezing. HEART: RRR, S1, S2. No gallops or murmurs. Chest wall PPM site looks okay. ABDOMEN: Soft, obese. Bowel sounds present. Positive bowel sounds. EXTREMITIES: Bilateral chronic lymphedema and venous stasis. SKIN: Plantar surface on the right foot dressing taken down. Two small wounds. Lateral wound packed, probes through the bone. Wound is clean and healthy. No surrounding redness. No gross purulence. Heel ulcer is clean superficial. NEUROLOGIC: Alert, oriented x 3, grossly nonfocal. PSYCHIATRIC: Calm and cooperative. Medications: Inpatient Meds: Medications reviewed. Labs: Lab Laboratory Tests Test 04/04/21 06:20 White Blood Count 9.0 x10^3/uL (4.0-11.0) Red Blood Count 4.64 x10^6/uL (4.30-5.70) Hemoglobin 13.1 g/dL (13.0-17.5) Hematocrit 40.5 % (39.0-53.0) Mean Corpuscular Volume 87 fL (79-100) Mean Corpuscular Hemoglobin 28 pg (25-35) Mean Corpuscular Hemoglobin Concent 32 g/dL (31-37) Red Cell Distribution Width 16.5 % (11.5-14.5) Platelet Count 258 x10^3/uL (140-400) Neutrophils (%) (Auto) 67 % (31-73) Lymphocytes (%) (Auto) 19 % (24-48) Monocytes (%) (Auto) 9 % (0-9) Eosinophils (%) (Auto) 4 % (0-3) Basophils (%) (Auto) 2 % (0-3) Neutrophils # (Auto) 6.0 x10^3/uL (1.8-7.7) Lymphocytes # (Auto) 1.7 x10^3/uL (1.0-4.8) Monocytes # (Auto) 0.8 x10^3/uL (0.0-1.1) Eosinophils # (Auto) 0.4 x10^3/uL (0.0-0.7) Basophils # (Auto) 0.2 x10^3/uL (0.0-0.2) Sodium Level 145 mmol/L (136-145) Potassium Level 3.4 mmol/L (3.5-5.1) Chloride Level 106 mmol/L (98-107) Carbon Dioxide Level 31 mmol/L (21-32) Anion Gap 8 (6-14) Blood Urea Nitrogen 27 mg/dL (8-26) Creatinine 1.8 mg/dL (0.7-1.3) Estimated GFR (Cockcroft-Gault) 37.3 Glucose Level 74 mg/dL (70-99) Calcium Level 8.6 mg/dL (8.5-10.1) Micro RUN DATE: 03/28/21 [facility] *LIVE* PAGE 1 RUN TIME: 924 Specimen Inquiry PATIENT: JOSE MERCADO Rey ACCT: [id number] LOC: [address] [place] [address] U: [id number] AGE/SX: 70/M ROOM: 665 RE03/22/[address]: TEE ORTIZ III DO : 1950 BED: 1 DIS: STATUS: ADM IN TLOC: SPEC #: [id number] YENI: 03/23/21 STATUS: COMP REQ #: [id number] RECD: 03/23/[address] [facility] [address]: TEE ORTIZ III, DO SOURCE: FOOT ENTR: 03/23/[address]: JODI CARABALLO DO [facility]: NAVARRO DECKER MD,MATY BRO,CURTIS Conrad MD NO PCP ORDERED: ANAER/AEROB/GS COMMENTS: Has specimen been collected/obtained R 5TH TOE WOUND ------- ----- Procedure Result GRAM STAIN Final Final GRAM NEGATIVE RODS:MANY GRAM POSITIVE COCCI:MANY SQUAMOUS EPI CELL:FEW PMN (WBCs):MODERATE Unless otherwise specified, Testing Performed by: [address] [address] For Inquires, the Physician may contact the Microbiology department at [phone] ANAEROBIC-AEROBIC CULTURE Final Final MIXED AEROBIC AND ANAEROBIC GUALBERTO on 03/25/21 at 1210 INCLUDING: FEW GRAM NEGATIVE RODS on 03/24/21 at 0901 FINAL ID= [PROTEUS MIRABILIS], SEE TAQUERIA ON [id number] RARE [STAPHYLOCOCCUS EPIDERMIDIS] FEW [CORYNEBACTERIUM AMYCOLATUM] FEW [ENTEROCOCCUS AVIUM] MODERATE [BACTEROIDES THETAIOTAOMICRON G] MODERATE [ANAEROCOCCUS VAGINALIS] MANY [PREVOTELLA SPECIES] PROTEUS MIRABILIS STAPHYLOCOCCUS EPIDERMIDIS CORYNEBACTERIUM AMYCOLATUM ENTEROCOCCUS AVIUM BACTEROIDES THETAIOTAOMICRON G ANAEROCOCCUS VAGINALIS PREVOTELLA SPECIES Unless otherwise specified, Testing Performed by: [facility] [address] [place] [address] RUN DATE: 03/28/21 [facility] *LIVE* PAGE 2 RUN TIME: 09 Specimen Inquiry SPEC: [id number] PATIENT: MERCADOJOSE [id number] (Continued) Procedure Result CONTINUED ON NEXT PAGE --- --------- RUN DATE: 03/28/21 [facility] *LIVE* PAGE 3 RUN TIME: 0925 Specimen Inquiry SPEC: [id number] PATIENT: JOSE MERCADO [id number] (Continued) Procedure Result ANAEROBIC-AEROBIC CULTURE Final (continued) For Inquires, the Physician may contact the Microbiology department at [phone] RUN DATE: 03/28/21 [facility] *LIVE* PAGE 1 RUN TIME: 0945 Specimen Inquiry PATIENT: JOSE MERCADO ACCT: [id number] LOC: [facility] U: [id number] AGE/SX: 70/M ROOM: 665 RE03/22/[address]: TEE ORTIZ III, DO : 1950 BED: 1 DIS: STATUS: ADM IN TLOC: SPEC #: [id number] YENI: 03/23/21 STATUS: COMP REQ #: [id number] RECD: 03/23/[address]: TEE ORTIZ III, DO SOURCE: FOOT ENTR: 03/23/[address]: JODI CARABALLO DO SPDESC: WOUND NAVARRO JJ MD,CURTIS VASQUEZ MD, MD NO PCP ORDERED: ANAER/AERCITLALI/DAKOTA COMMENTS: Has specimen been collected/obtained? Y R HEEL WOUND Procedure Result GRAM STAIN Final Final GRAM NEGATIVE RODS:RARE GRAM POSITIVE COCCI:RARE RBC:MODERATE SQUAMOUS EPI CELL:RARE PMN (WBCs):RARE Unless otherwise specified, Testing Performed by: [address] [address] For Inquires, the Physician may contact the Microbiology department at [phone] ANAEROBIC-AEROBIC CULTURE Final Final MIXED AEROBIC AND ANAEROBIC GUALBERTO on 03/25/21 at 1206 INCLUDING: FEW GRAM NEGATIVE RODS on 03/24/21 at 0855 FINAL ID= [PROTEUS MIRABILIS] FEW [BACTEROIDES OVATUS GROUP] on 03/25/21 at 1206 MODERATE [ANAEROCOCCUS VAGINALIS] on 03/25/21 at 1207 FEW Mixed skin gualberto isolated on 03/27/21 at 1055 PROTEUS MIRABILIS UNIDENTIFIED ORGANISM BACTEROIDES OVATUS GROUP ANAEROCOCCUS VAGINALIS ANTIMICROBIAL SUSCEPTIBILITY Final Comment NEG TAQUERIA 56 PROTEUS MIRABILIS ANTIBIOTIC RESULT INTERPRETATION AMPICILLIN/SULBACTAM <=4/2 S AMIKACIN <=16 S RUN DATE: 03/28/21 [facility] *LIVE* PAGE 2 RUN TIME: 0920 Specimen Inquiry --------- --- SPEC: [id number] PATIENT: JOSE MERCADO Rey [id number] (Continued) Procedure Result CONTINUED ON NEXT PAGE RUN DATE: 03/28/21 [facility] *LIVE* PAGE 3 RUN TIME: 0920 Specimen Inquiry SPEC: [id number] PATIENT: JOSE MERCADO [id number] (Continued) Procedure Result ANTIMICROBIAL SUSCEPTIBILITY Final (continued) AMPICILLIN <=8 S AMOXICILLIN/K CLAVULANATE <=8/4 S AZTREONAM <=4 S CEFTRIAXONE <=1 S CEFTAZIDIME <=1 S CEFOTAXIME <=2 S CEFOXITIN <=8 S CEFAZOLIN <=2 S CIPROFLOXACIN <=0.25 S CEFEPIME <=2 S CEFUROXIME <=4 S CEFTAZIDIME/AVIBACTAM <=4 S ERTAPENEM <=0.5 S GENTAMICIN <=2 S LEVOFLOXACIN <=0.5 S MEROPENEM <=1 S PIPERACILLIN/TAZOBACTAM <=8 S TRIMETHOPRIM/SULFAMETHOXAZOLE <=0.5/9.5 S TETRACYCLINE <=4 R* TOBRAMYCIN <=2 S Unless otherwise specified, Testing Performed by: [address] [address] For Inquires, the Physician may contact the Microbiology department at [phone] Objective: Assessment: Chronic right fifth metatarsal nonhealing wound, Foot xray suggests osteomyelitis right 5th metatarsal bone,concern for adequate healing with exposed bone Follow-up cultures polymicrobial including Proteus mirabilis and Enterococcus avium Discussed with micro lab Enterococcus avium susceptibilities are not available due to polymicrobial growth on cultures PAD Chronic right plantar ulcerations, Chronic lymphedema, chronic venous stasis, atrial fibrillation,status post PPM, CHF, hypertension, hyperlipidemia, osteoarthritis, History of glaucoma chest pain, elevated troponin poa, self-care deficit. 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 March 28, 2021 CKD Swab cultures MODERATE [BACTEROIDES THETAIOTAOMICRON G] MODERATE [ANAEROCOCCUS VAGINALIS] MANY [PREVOTELLA SPECIES] PROTEUS MIRABILIS STAPHYLOCOCCUS EPIDERMIDIS CORYNEBACTERIUM AMYCOLATUM ENTEROCOCCUS AVIUM BACTEROIDES THETAIOTAOMICRON G ANAEROCOCCUS VAGINALIS PREVOTELLA SPECIES Plan: Plan of Care Continue daptomycin and Zosyn,May need renal dosing pharmacy to assist Monitor labs and cultures When ready for discharge patient will need daptomycin and IV Invanz, first dose of Invanz here before discharge Continue local wound care as directed Strict offload If patient does not get optimal response with above antibiotic treatment will need surgical debridement Vascular recommendations reviewed. MRI prior to proceeding with any surgical debridement or removal of bone to confirm osteomyelitis. 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
[2021-04-04] MEDS: APIXABAN 5 MG TABLET. PO SCH ×2 (09:26→21:53)
[2021-04-04] MEDS: SENNOSIDES/DOCUSATE 8.6/50MG TABLET. PO SCH ×2 (09:26→21:53)
[2021-04-04] MEDS: ASPIRIN ENTERIC COATED 81 MG TABLET.DR. PO SCH (09:26)
[2021-04-04] MEDS: AMIODARONE HCL 200 MG TABLET. PO SCH (09:26)
[2021-04-04] MEDS: LACTOBACILLUS RHAMNOSUS GG 1 CAPSULE. PO SCH ×2 (09:26→21:53)
[2021-04-04] MEDS: METOPROLOL TART IMMED RELEASE 25 MG TABLET. PO SCH ×2 (09:27→21:54)
[2021-04-04] MEDS: FUROSEMIDE 40 MG TABLET. PO SCH (09:27)
[2021-04-04] MEDS: TIMOLOL 0.25% OPHTH SOLUTION 5ML BOTTLE. OU SCH ×2 (09:28→21:00)
[2021-04-04] MEDS: BRIMONIDINE 0.2% OPHTH SOLUTION 5ML BOTTLE. OD SCH ×2 (09:28→21:54)
--- NOTE | 2021-04-04 10:00 | NUR ---
SS following up with discharge planning. SS reviewed pt chart and discussed with pt RN. Pt is currently on room air. COVID19 negative. Pt on IV Daptomycin and IV Zosyn. Wound care following for extensive wounds. Pt accepted at [facility], ; fax [phone], pending insurance authorization. Clinical updates phoned and faxed to [facility]. SS will continue to follow for discharge planning.
[2021-04-04 11:00] VITALS: BP 103/49
--- NOTE | 2021-04-04 12:08 | PDOC ---
DORIS CHRISTIAN NUCLEAR MONITORING TECHNICIAN 04/04/21 1208: CARDIO Progress Notes Date and Time Date of Service 04/04/21 Time of Evaluation 1200 Subjective Subjective: No Chest Pain, No shortness of breath, No Palpitations Vitals Vitals Vital Signs Date Time Temp Pulse Resp B/P (MAP) Pulse Ox O2 Delivery O2 Flow Rate FiO2 04/04/21 11:00 98.1 68 16 103/49 (67) 96 Room Air 98.1 04/04/21 08:00 2.0 Weight Weight [ ] Input and Output Intake and Output Intake and Output 04/04/21 07:00 Intake Total 1010 ml Output Total 500 ml Balance 510 ml Intake Oral 910 ml IV Total 100 ml Output Urine Total 500 ml # Voids 1 # Bowel Movements 2 Laboratory Labs Laboratory Tests Test 04/04/21 06:20 White Blood Count 9.0 x10^3/uL (4.0-11.0) Red Blood Count 4.64 x10^6/uL (4.30-5.70) Hemoglobin 13.1 g/dL (13.0-17.5) Hematocrit 40.5 % (39.0-53.0) Mean Corpuscular Volume 87 fL (79-100) Mean Corpuscular Hemoglobin 28 pg (25-35) Mean Corpuscular Hemoglobin Concent 32 g/dL (31-37) Red Cell Distribution Width 16.5 % (11.5-14.5) Platelet Count 258 x10^3/uL (140-400) Neutrophils (%) (Auto) 67 % (31-73) Lymphocytes (%) (Auto) 19 % (24-48) Monocytes (%) (Auto) 9 % (0-9) Eosinophils (%) (Auto) 4 % (0-3) Basophils (%) (Auto) 2 % (0-3) Neutrophils # (Auto) 6.0 x10^3/uL (1.8-7.7) Lymphocytes # (Auto) 1.7 x10^3/uL (1.0-4.8) Monocytes # (Auto) 0.8 x10^3/uL (0.0-1.1) Eosinophils # (Auto) 0.4 x10^3/uL (0.0-0.7) Basophils # (Auto) 0.2 x10^3/uL (0.0-0.2) Sodium Level 145 mmol/L (136-145) Potassium Level 3.4 mmol/L (3.5-5.1) Chloride Level 106 mmol/L (98-107) Carbon Dioxide Level 31 mmol/L (21-32) Anion Gap 8 (6-14) Blood Urea Nitrogen 27 mg/dL (8-26) Creatinine 1.8 mg/dL (0.7-1.3) Estimated GFR (Cockcroft-Gault) 37.3 Glucose Level 74 mg/dL (70-99) Calcium Level 8.6 mg/dL (8.5-10.1) Microbiology Micro Microbiology 03/23/21 Gram Stain - Final, Complete 03/23/21 Aerobic and Anaerobic Culture - Final, Complete 03/23/21 Antimicrobic Susceptibility - Final, Complete 03/23/21 Urine Culture - Final, Complete 03/23/21 Antimicrobic Susceptibility - Final, Complete 03/22/21 Blood Culture - Final, Complete NO GROWTH AFTER 5 DAYS Physical Exam HEENT: Neck Supple W Full Motion Chest: Symmetric LUNGS: Clear to Auscultation Heart: RRR (SR ) Abdomen: Soft N/T, Other (obese) Extremities: Other (chronic LE lymphedema) Neurology: alert, oriented, follow commands Assessment Assessment 1. PAFIB; Maintaining SR 2. Chronic diastolic CHF: compensated. 3. Hypertension; well controlled 3. CAD: no past intervention, clinically stable 5. PAD with chronic lymphedema and venous stasis. 6. SSS with PPM (Biotronik) 7. CKD; Cr stable 8. HLP; statin 9. Mild troponin elevation: 0.1 suspect demand mediated likely due to RVR 10. Hypokalemia Recommendations Continue metoprolol for rate control and amiodarone for rhythm maintenance Low-dose Eliquis for stroke prophylaxis. Lasix therapy Replace K Secondary prevention Supportive care Awaiting insurance approval for LTAC Follow up in our office with Dr. Sheppard as scheduled Justicifation of Admission Dx: Justifications for Admission: Justification of Admission Dx: No MATY SHEPPARD MD 04/05/21 1128: CARDIO Progress Notes Plan Plan Late entry for 04/04/21 Pt. seen and examined. Agree with above REWRITE EDITOR note. Supportive care. DORIS CHRISTIAN APRN Apr 04, 2021 12:08 MATY SHEPPARD MD Apr 05, 2021 11:28
[2021-04-04] MEDS: DAPTOmycin (GENERIC) IVPB 560 MG in IV NORMAL SALINE 50ML 50 ML IV SCH (13:38)
--- NOTE | 2021-04-04 14:01 | PDOC ---
[employer] PROGRESS NOTE Date of Service DOS: DATE: 04/04/21 TIME: 13:59 Chief Complaint Chief Complaint Atrial fibrillation with RVR CHF HTN HLP Osteoarthritis BL extremity chronic wounds and ulcers Chronic Lymphedema Chronic venous stasis Right fifth metatarsal, possible osteomyelitis Inability to care for self ANTWAN (unknown baseline) Severe malnutrition History of Present Illness History of Present Illness 04/04/2021 No acute events overnight. Patient seen and examined bedside. Pending LTAC placement after insurance approval. Patient's chart, labs, images were reviewed and discussed with RN 04/03, in good spiritins, no events, still weak, plan LTAC placement if able, cont abx Pt and OT he is unable to transfer Vitals/I&O Vitals/I&O: Vital Signs Date Time Temp Pulse Resp B/P (MAP) Pulse Ox O2 Delivery O2 Flow Rate FiO2 04/04/21 11:00 98.1 68 16 103/49 (67) 96 Room Air 98.1 04/04/21 08:00 2.0 I & O 04/03/21 04/03/21 04/04/21 15:00 23:00 07:00 Intake Total 660 ml 250 ml 100 ml Output Total 200 ml 300 ml Balance 460 ml -50 ml 100 ml Physical Exam Physical Exam: GENERAL: Alert, oriented x3 male, lying in bed comfortably, in no acute distress. HEENT: Normocephalic, atraumatic. Anicteric. No thrush. Oral mucosa moist. Right eye irritation improved NECK: Supple, no JVD. LUNGS: Clear bilaterally. No wheezing. HEART: RRR, S1, S2. No gallops or murmurs. Chest wall PPM site looks okay. ABDOMEN: Soft, obese. Bowel sounds present. Positive bowel sounds. EXTREMITIES: Bilateral chronic lymphedema and venous stasis. SKIN: Plantar surface on the right foot dressing taken down. Two small wounds. Lateral wound packed, probes through the bone. Wound is clean and healthy. No surrounding redness. No gross purulence. Heel ulcer is clean superficial. NEUROLOGIC: Alert, oriented x 3, grossly nonfocal. PSYCHIATRIC: Calm and cooperative. General: No acute distress, mild distress Heart: Regular rate Lungs: Clear Abdomen: Normal bowel sounds Extremities: No cyanosis, Other (LE lymphedema weeping) Skin: Other (LE venous dermaititis, chronic lyphemdema with right foot erythema) Labs Labs: Laboratory Tests Test 04/04/21 06:20 White Blood Count 9.0 x10^3/uL (4.0-11.0) Red Blood Count 4.64 x10^6/uL (4.30-5.70) Hemoglobin 13.1 g/dL (13.0-17.5) Hematocrit 40.5 % (39.0-53.0) Mean Corpuscular Volume 87 fL (79-100) Mean Corpuscular Hemoglobin 28 pg (25-35) Mean Corpuscular Hemoglobin Concent 32 g/dL (31-37) Red Cell Distribution Width 16.5 % (11.5-14.5) Platelet Count 258 x10^3/uL (140-400) Neutrophils (%) (Auto) 67 % (31-73) Lymphocytes (%) (Auto) 19 % (24-48) Monocytes (%) (Auto) 9 % (0-9) Eosinophils (%) (Auto) 4 % (0-3) Basophils (%) (Auto) 2 % (0-3) Neutrophils # (Auto) 6.0 x10^3/uL (1.8-7.7) Lymphocytes # (Auto) 1.7 x10^3/uL (1.0-4.8) Monocytes # (Auto) 0.8 x10^3/uL (0.0-1.1) Eosinophils # (Auto) 0.4 x10^3/uL (0.0-0.7) Basophils # (Auto) 0.2 x10^3/uL (0.0-0.2) Sodium Level 145 mmol/L (136-145) Potassium Level 3.4 mmol/L (3.5-5.1) Chloride Level 106 mmol/L (98-107) Carbon Dioxide Level 31 mmol/L (21-32) Anion Gap 8 (6-14) Blood Urea Nitrogen 27 mg/dL (8-26) Creatinine 1.8 mg/dL (0.7-1.3) Estimated GFR (Cockcroft-Gault) 37.3 Glucose Level 74 mg/dL (70-99) Calcium Level 8.6 mg/dL (8.5-10.1) Assessment and Plan Assessmemt and Plan Problems Medical Problems: (1) Atrial fibrillation with rapid ventricular response Status: Acute (2) Chest pain Status: Acute (3) Elevated troponin I level Status: Acute (4) Lymphedema of both lower extremities Status: Acute (5) Self-care deficit Status: Acute Comment Review of Relevant I have reviewed the following items marlene (where applicable) has been applied. Justifications for Admission Other Justification JULIO MCCRARY MD Apr 04, 2021 14:01
[2021-04-04 14:55] VITALS: BP 130/65
[2021-04-04] MEDS ORDERED: POTASSIUM CHLORIDE 20 MEQ TABLET.ER. PO ONE (17:00)
[2021-04-04 20:45] VITALS: BP 110/77
[2021-04-04] MEDS: ATORVASTATIN CALCIUM 20 MG TABLET PO SCH (21:53)
[2021-04-04] MEDS: LATANOPROST 0.005% OPHTH SOLUTION 2.5ML BOTTLE. OU SCH (21:54)
[2021-04-04 23:19] VITALS: BP 112/64
[2021-04-05] VITALS (7 sets, daily range): BP systolic 94–122; BP diastolic 61–73
[2021-04-05] MEDS: PIPERACILLIN/TAZOBACTAM 3.375 GM in IV NORMAL SALINE 50ML 50 ML IV SCH ×3 (06:10→17:53)
[2021-04-05 06:46] LABS: CALCIUM 8.3 mg/dL (8.5-10.1); CREATININE 1.8 mg/dL (0.7-1.3); GFR 37.3; POTASSIUM 3.8 mmol/L (3.5-5.1)
[2021-04-05 06:47] LABS: BASO # 0.1 x10^3/uL (0.0-0.2); BASO % 1 % (0-3); EOS # 0.4 x10^3/uL (0.0-0.7); EOS % 4 % (0-3); HEMATOCRIT 38.6 % (39.0-53.0); HEMOGLOBIN 12.5 g/dL (13.0-17.5); LYMPH # 1.6 x10^3/uL (1.0-4.8); LYMPH % 18 % (24-48); MEAN CORPUSCULAR HEMOGLOBIN 28 pg (25-35); MEAN CORPUSCULAR HGB CONC 32 g/dL (31-37); MEAN CORPUSCULAR VOLUME 87 fL (79-100); MONO # 0.6 x10^3/uL (0.0-1.1); MONO % 7 % (0-9); NEUT # 6.2 x10^3/uL (1.8-7.7); NEUT % 70 % (31-73); PLATELET COUNT 219 x10^3/uL (140-400); RED BLOOD COUNT 4.41 x10^6/uL (4.30-5.70); RED CELL DISTRIBUTION WIDTH 16.6 % (11.5-14.5); WHITE BLOOD COUNT 8.8 x10^3/uL (4.0-11.0)
--- NOTE | 2021-04-05 08:39 | PDOC ---
Infectious Disease Note Subjective: Subjective Patient without complaints Vital Signs: Vital Signs Vital Signs Date Time Temp Pulse Resp B/P (MAP) Pulse Ox O2 Delivery O2 Flow Rate FiO2 04/05/21 03:27 98.1 77 18 102/65 (77) 97 Room Air 98.1 04/04/21 08:00 2.0 Physical Exam: PHYSICAL EXAM GENERAL: Alert, oriented x3 male, lying in bed comfortably, in no acute distress. HEENT: Normocephalic, atraumatic. Anicteric. No thrush. Oral mucosa moist. Right eye irritation improved NECK: Supple, no JVD. LUNGS: Clear bilaterally. No wheezing. HEART: RRR, S1, S2. No gallops or murmurs. Chest wall PPM site looks okay. ABDOMEN: Soft, obese. Bowel sounds present. Positive bowel sounds. EXTREMITIES: Bilateral chronic lymphedema and venous stasis. SKIN: Plantar surface on the right foot dressing taken down. Two small wounds. Lateral wound packed, probes through the bone. Wound is clean and healthy. No surrounding redness. No gross purulence. Heel ulcer is clean superficial. NEUROLOGIC: Alert, oriented x 3, grossly nonfocal. PSYCHIATRIC: Calm and cooperative. Medications: Inpatient Meds: Medications reviewed. Labs: Lab Laboratory Tests Test 04/05/21 06:15 White Blood Count 8.8 x10^3/uL (4.0-11.0) Red Blood Count 4.41 x10^6/uL (4.30-5.70) Hemoglobin 12.5 g/dL (13.0-17.5) Hematocrit 38.6 % (39.0-53.0) Mean Corpuscular Volume 87 fL (79-100) Mean Corpuscular Hemoglobin 28 pg (25-35) Mean Corpuscular Hemoglobin Concent 32 g/dL (31-37) Red Cell Distribution Width 16.6 % (11.5-14.5) Platelet Count 219 x10^3/uL (140-400) Neutrophils (%) (Auto) 70 % (31-73) Lymphocytes (%) (Auto) 18 % (24-48) Monocytes (%) (Auto) 7 % (0-9) Eosinophils (%) (Auto) 4 % (0-3) Basophils (%) (Auto) 1 % (0-3) Neutrophils # (Auto) 6.2 x10^3/uL (1.8-7.7) Lymphocytes # (Auto) 1.6 x10^3/uL (1.0-4.8) Monocytes # (Auto) 0.6 x10^3/uL (0.0-1.1) Eosinophils # (Auto) 0.4 x10^3/uL (0.0-0.7) Basophils # (Auto) 0.1 x10^3/uL (0.0-0.2) Sodium Level 144 mmol/L (136-145) Potassium Level 3.8 mmol/L (3.5-5.1) Chloride Level 108 mmol/L (98-107) Carbon Dioxide Level 30 mmol/L (21-32) Anion Gap 6 (6-14) Blood Urea Nitrogen 28 mg/dL (8-26) Creatinine 1.8 mg/dL (0.7-1.3) Estimated GFR (Cockcroft-Gault) 37.3 Glucose Level 78 mg/dL (70-99) Calcium Level 8.3 mg/dL (8.5-10.1) Micro RUN DATE: 03/28/21 [facility] *LIVE* PAGE 1 RUN TIME: 924 Specimen Inquiry PATIENT: JOSE MERCADO Rey ACCT: [id number] LOC: [address] [place] [address] U: [id number] AGE/SX: 70/M ROOM: 665 RE03/22/[address]: TEE ORTIZ III DO : 1950 BED: 1 DIS: STATUS: ADM IN TLOC: SPEC #: [id number] YENI: 03/23/21 STATUS: COMP REQ #: [id number] RECD: 03/23/[address] [facility] [address]: TEE ORTIZ III, DO SOURCE: FOOT ENTR: 03/23/[address]: JODI CARABALLO DO [facility]: NAVARRO DECKER MD,MATY BRO,CURTIS Conrad MD NO PCP ORDERED: ANAER/AEROB/GS COMMENTS: Has specimen been collected/obtained R 5TH TOE WOUND ------- ----- Procedure Result GRAM STAIN Final Final GRAM NEGATIVE RODS:MANY GRAM POSITIVE COCCI:MANY SQUAMOUS EPI CELL:FEW PMN (WBCs):MODERATE Unless otherwise specified, Testing Performed by: [address] [address] For Inquires, the Physician may contact the Microbiology department at [phone] ANAEROBIC-AEROBIC CULTURE Final Final MIXED AEROBIC AND ANAEROBIC GUALBERTO on 03/25/21 at 1210 INCLUDING: FEW GRAM NEGATIVE RODS on 03/24/21 at 0901 FINAL ID= [PROTEUS MIRABILIS], [place] ON [id number] RARE [STAPHYLOCOCCUS EPIDERMIDIS] FEW [CORYNEBACTERIUM AMYCOLATUM] FEW [ENTEROCOCCUS AVIUM] MODERATE [BACTEROIDES THETAIOTAOMICRON G] MODERATE [ANAEROCOCCUS VAGINALIS] MANY [PREVOTELLA SPECIES] PROTEUS MIRABILIS STAPHYLOCOCCUS EPIDERMIDIS CORYNEBACTERIUM AMYCOLATUM ENTEROCOCCUS AVIUM BACTEROIDES THETAIOTAOMICRON G ANAEROCOCCUS VAGINALIS PREVOTELLA SPECIES Unless otherwise specified, Testing Performed by: [facility] [address] [place] [address] RUN DATE: 03/28/21 [facility] *LIVE* PAGE 2 RUN TIME: 09 Specimen Inquiry SPEC: [id number] PATIENT: MERCADOJOSE [id number] (Continued) Procedure Result CONTINUED ON NEXT PAGE --- --------- RUN DATE: 03/28/21 [facility] *LIVE* PAGE 3 RUN TIME: 0925 Specimen Inquiry SPEC: [id number] PATIENT: JOSE MERCADO [id number] (Continued) Procedure Result ANAEROBIC-AEROBIC CULTURE Final (continued) For Inquires, the Physician may contact the Microbiology department at [phone] RUN DATE: 03/28/21 [facility] *LIVE* PAGE 1 RUN TIME: 0945 Specimen Inquiry PATIENT: JOSE MERCADO ACCT: [id number] LOC: 6 [facility] U: [id number] AGE/SX: 70/M ROOM: 665 RE03/22/[address]: TEE ORTIZ III, DO : 1950 BED: 1 DIS: STATUS: ADM IN TLOC: SPEC #: [id number] YENI: 03/23/21 STATUS: COMP REQ #: [id number] RECD: 03/23/[address]: TEE ORTIZ III, DO SOURCE: FOOT ENTR: 03/23/[address]: JODI CARABALLO DO SPDESC: WOUND NAVARRO JJ MD,CURTIS VASQUEZ MD, MD NO PCP ORDERED: ANAER/AERCITLALI/DAKOTA COMMENTS: Has specimen been collected/obtained? Y R HEEL WOUND Procedure Result GRAM STAIN Final Final GRAM NEGATIVE RODS:RARE GRAM POSITIVE COCCI:RARE RBC:MODERATE SQUAMOUS EPI CELL:RARE PMN (WBCs):RARE Unless otherwise specified, Testing Performed by: [address] [address] For Inquires, the Physician may contact the Microbiology department at [phone] ANAEROBIC-AEROBIC CULTURE Final Final MIXED AEROBIC AND ANAEROBIC GUALBERTO on 03/25/21 at 1206 INCLUDING: FEW GRAM NEGATIVE RODS on 03/24/21 at 0855 FINAL ID= [PROTEUS MIRABILIS] FEW [BACTEROIDES OVATUS GROUP] on 03/25/21 at 1206 MODERATE [ANAEROCOCCUS VAGINALIS] on 03/25/21 at 1207 FEW Mixed skin gualberto isolated on 03/27/21 at 1055 PROTEUS MIRABILIS UNIDENTIFIED ORGANISM BACTEROIDES OVATUS GROUP ANAEROCOCCUS VAGINALIS ANTIMICROBIAL SUSCEPTIBILITY Final Comment NEG TAQUERIA 56 PROTEUS MIRABILIS ANTIBIOTIC RESULT INTERPRETATION AMPICILLIN/SULBACTAM <=4/2 S AMIKACIN <=16 S RUN DATE: 03/28/21 [facility] *LIVE* PAGE 2 RUN TIME: 0920 Specimen Inquiry --------- --- SPEC: [id number] PATIENT: JOSE MERCADO Rey [id number] (Continued) Procedure Result CONTINUED ON NEXT PAGE RUN DATE: 03/28/21 [facility] *LIVE* PAGE 3 RUN TIME: 0920 Specimen Inquiry SPEC: [id number] PATIENT: JOSE MERCADO [id number] (Continued) Procedure Result ANTIMICROBIAL SUSCEPTIBILITY Final (continued) AMPICILLIN <=8 S AMOXICILLIN/K CLAVULANATE <=8/4 S AZTREONAM <=4 S CEFTRIAXONE <=1 S CEFTAZIDIME <=1 S CEFOTAXIME <=2 S CEFOXITIN <=8 S CEFAZOLIN <=2 S CIPROFLOXACIN <=0.25 S CEFEPIME <=2 S CEFUROXIME <=4 S CEFTAZIDIME/AVIBACTAM <=4 S ERTAPENEM <=0.5 S GENTAMICIN <=2 S LEVOFLOXACIN <=0.5 S MEROPENEM <=1 S PIPERACILLIN/TAZOBACTAM <=8 S TRIMETHOPRIM/SULFAMETHOXAZOLE <=0.5/9.5 S TETRACYCLINE <=4 R* TOBRAMYCIN <=2 S Unless otherwise specified, Testing Performed by: [address] [address] For Inquires, the Physician may contact the Microbiology department at [phone] Objective: Assessment: Chronic right fifth metatarsal nonhealing wound, Foot xray suggests osteomyelitis right 5th metatarsal bone,concern for adequate healing with exposed bone Follow-up cultures polymicrobial including Proteus mirabilis and Enterococcus avium Discussed with micro lab Enterococcus avium susceptibilities are not available due to polymicrobial growth on cultures PAD Chronic right plantar ulcerations, Chronic lymphedema, chronic venous stasis, atrial fibrillation,status post PPM, CHF, hypertension, hyperlipidemia, osteoarthritis, History of glaucoma chest pain, elevated troponin poa, self-care deficit. 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 ,unsuccessful [employer] recanalization via antegrade approach March 28, 2021 CKD Swab cultures MODERATE [BACTEROIDES THETAIOTAOMICRON G] MODERATE [ANAEROCOCCUS VAGINALIS] MANY [PREVOTELLA SPECIES] PROTEUS MIRABILIS STAPHYLOCOCCUS EPIDERMIDIS CORYNEBACTERIUM AMYCOLATUM ENTEROCOCCUS AVIUM BACTEROIDES THETAIOTAOMICRON G ANAEROCOCCUS VAGINALIS PREVOTELLA SPECIES Plan: Plan of Care Continue daptomycin and Zosyn,May need renal dosing pharmacy to assist Monitor labs and cultures When ready for discharge patient will need daptomycin and IV Invanz, first dose of Invanz here before discharge Continue local wound care as directed Strict offload If patient does not get optimal response with above antibiotic treatment will need surgical debridement Vascular recommendations reviewed. MRI prior to proceeding with any surgical debridement or removal of bone to confirm osteomyelitis. 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
[2021-04-05] MEDS: APIXABAN 5 MG TABLET. PO SCH ×2 (08:41→20:30)
[2021-04-05] MEDS: LACTOBACILLUS RHAMNOSUS GG 1 CAPSULE. PO SCH ×2 (08:41→20:30)
[2021-04-05] MEDS: SENNOSIDES/DOCUSATE 8.6/50MG TABLET. PO SCH ×3 (08:41→20:34)
[2021-04-05] MEDS: TIMOLOL 0.25% OPHTH SOLUTION 5ML BOTTLE. OU SCH ×2 (08:41→20:30)
[2021-04-05] MEDS: BRIMONIDINE 0.2% OPHTH SOLUTION 5ML BOTTLE. OD SCH ×2 (08:41→20:30)
[2021-04-05] MEDS: ASPIRIN ENTERIC COATED 81 MG TABLET.DR. PO SCH (08:41)
[2021-04-05] MEDS: METOPROLOL TART IMMED RELEASE 25 MG TABLET. PO SCH ×2 (08:42→20:30)
[2021-04-05] MEDS: AMIODARONE HCL 200 MG TABLET. PO SCH (08:43)
[2021-04-05] MEDS: FUROSEMIDE 40 MG TABLET. PO SCH (08:44)
--- NOTE | 2021-04-05 11:01 | NUR ---
SW following. Discussed with RN, pt's insurance approved transfer to [facility], likely will have bed tomorrow (04/06/21). RN notified. Awaiting bed assignment at [facility]. SW will continue to follow.
--- NOTE | 2021-04-05 11:39 | PDOC ---
[employer] PROGRESS NOTE Date of Service DOS: DATE: 04/05/21 TIME: 11:38 Chief Complaint Chief Complaint Atrial fibrillation with RVR CHF HTN HLP Osteoarthritis BL extremity chronic wounds and ulcers Chronic Lymphedema Chronic venous stasis Right fifth metatarsal, possible osteomyelitis Inability to care for self ANTWAN (unknown baseline) Severe malnutrition History of Present Illness History of Present Illness 04/05/2021 Patient seen and examined Chart reviewed Discussed with RN We are still awaiting placement 04/04/2021 No acute events overnight. Patient seen and examined bedside. Pending LTAC placement after insurance approval. Patient's chart, labs, images were reviewed and discussed with RN 04/03, in good spiritins, no events, still weak, plan LTAC placement if able, cont abx Pt and OT he is unable to transfer Vitals/I&O Vitals/I&O: Vital Signs Date Time Temp Pulse Resp B/P (MAP) Pulse Ox O2 Delivery O2 Flow Rate FiO2 04/05/21 08:45 122/71 (88) 04/05/21 08:43 79 04/05/21 08:30 Room Air 04/05/21 07:00 98.8 16 94 98.8 04/04/21 08:00 2.0 I & O 04/04/21 04/04/21 04/05/21 15:00 23:00 07:00 Intake Total 650 ml 300 ml 360 ml Output Total 275 ml Balance 650 ml 25 ml 360 ml Physical Exam Physical Exam: GENERAL: Alert, oriented x3 male, lying in bed comfortably, in no acute distress. HEENT: Normocephalic, atraumatic. Anicteric. No thrush. Oral mucosa moist. Right eye irritation improved NECK: Supple, no JVD. LUNGS: Clear bilaterally. No wheezing. HEART: RRR, S1, S2. No gallops or murmurs. Chest wall PPM site looks okay. ABDOMEN: Soft, obese. Bowel sounds present. Positive bowel sounds. EXTREMITIES: Bilateral chronic lymphedema and venous stasis. SKIN: Plantar surface on the right foot dressing taken down. Two small wounds. Lateral wound packed, probes through the bone. Wound is clean and healthy. No surrounding redness. No gross purulence. Heel ulcer is clean superficial. NEUROLOGIC: Alert, oriented x 3, grossly nonfocal. PSYCHIATRIC: Calm and cooperative. General: No acute distress, mild distress Heart: Regular rate Lungs: Clear Abdomen: Normal bowel sounds Extremities: No cyanosis, Other (LE lymphedema weeping) Skin: Other (LE venous dermaititis, chronic lyphemdema with right foot erythema) Labs Labs: Laboratory Tests Test 04/05/21 06:15 White Blood Count 8.8 x10^3/uL (4.0-11.0) Red Blood Count 4.41 x10^6/uL (4.30-5.70) Hemoglobin 12.5 g/dL (13.0-17.5) Hematocrit 38.6 % (39.0-53.0) Mean Corpuscular Volume 87 fL (79-100) Mean Corpuscular Hemoglobin 28 pg (25-35) Mean Corpuscular Hemoglobin Concent 32 g/dL (31-37) Red Cell Distribution Width 16.6 % (11.5-14.5) Platelet Count 219 x10^3/uL (140-400) Neutrophils (%) (Auto) 70 % (31-73) Lymphocytes (%) (Auto) 18 % (24-48) Monocytes (%) (Auto) 7 % (0-9) Eosinophils (%) (Auto) 4 % (0-3) Basophils (%) (Auto) 1 % (0-3) Neutrophils # (Auto) 6.2 x10^3/uL (1.8-7.7) Lymphocytes # (Auto) 1.6 x10^3/uL (1.0-4.8) Monocytes # (Auto) 0.6 x10^3/uL (0.0-1.1) Eosinophils # (Auto) 0.4 x10^3/uL (0.0-0.7) Basophils # (Auto) 0.1 x10^3/uL (0.0-0.2) Sodium Level 144 mmol/L (136-145) Potassium Level 3.8 mmol/L (3.5-5.1) Chloride Level 108 mmol/L (98-107) Carbon Dioxide Level 30 mmol/L (21-32) Anion Gap 6 (6-14) Blood Urea Nitrogen 28 mg/dL (8-26) Creatinine 1.8 mg/dL (0.7-1.3) Estimated GFR (Cockcroft-Gault) 37.3 Glucose Level 78 mg/dL (70-99) Calcium Level 8.3 mg/dL (8.5-10.1) Assessment and Plan Assessmemt and Plan Problems Medical Problems: (1) Atrial fibrillation with rapid ventricular response Status: Acute (2) Chest pain Status: Acute (3) Elevated troponin I level Status: Acute (4) Lymphedema of both lower extremities Status: Acute (5) Self-care deficit Status: Acute Atrial fibrillation with RVR CHF HTN HLP Osteoarthritis BL extremity chronic wounds and ulcers Chronic Lymphedema Chronic venous stasis Right fifth metatarsal, possible osteomyelitis Inability to care for self ANTWAN (unknown baseline) Severe malnutrition Plan Awaiting placement For now continue current care as follows; Home meds DVT prophylaxis Wound care Encourage p.o. intake Trend labs Comment Review of Relevant I have reviewed the following items marlene (where applicable) has been applied. Medications: Current Medications Medications (Trade) Dose Ordered Sig/Placido Route PRN Reason Start Time Stop Time Status Last Admin Dose Admin Potassium Chloride (Klor-Con) 40 meq 1X ONCE PO 04/04/21 17:00 04/04/21 17:01 DC 04/04/21 16:55 Justifications for Admission Other Justification TEE ORTIZ III DO Apr 05, 2021 11:39
[2021-04-05] MEDS: DAPTOmycin (GENERIC) IVPB 560 MG in IV NORMAL SALINE 50ML 50 ML IV SCH (12:07)
--- NOTE | 2021-04-05 12:35 | PDOC ---
OLGA AGUIRRE RUG RENOVATOR 04/05/21 1235: CARDIO Progress Notes Date and Time Date of Service 04/05/2021 Time of Evaluation 1215 Subjective Subjective: No Chest Pain, No shortness of breath, No Palpitations Vitals Vitals Vital Signs Date Time Temp Pulse Resp B/P (MAP) Pulse Ox O2 Delivery O2 Flow Rate FiO2 04/05/21 08:45 122/71 (88) 04/05/21 08:43 79 04/05/21 08:30 Room Air 04/05/21 07:00 98.8 16 94 98.8 04/04/21 08:00 2.0 Weight Weight [ ] Input and Output Intake and Output Intake and Output 04/05/21 07:00 Intake Total 1310 ml Output Total 275 ml Balance 1035 ml Intake Oral 1310 ml Output Urine Total 275 ml # Voids 1 Laboratory Labs Laboratory Tests Test 04/05/21 06:15 White Blood Count 8.8 x10^3/uL (4.0-11.0) Red Blood Count 4.41 x10^6/uL (4.30-5.70) Hemoglobin 12.5 g/dL (13.0-17.5) Hematocrit 38.6 % (39.0-53.0) Mean Corpuscular Volume 87 fL (79-100) Mean Corpuscular Hemoglobin 28 pg (25-35) Mean Corpuscular Hemoglobin Concent 32 g/dL (31-37) Red Cell Distribution Width 16.6 % (11.5-14.5) Platelet Count 219 x10^3/uL (140-400) Neutrophils (%) (Auto) 70 % (31-73) Lymphocytes (%) (Auto) 18 % (24-48) Monocytes (%) (Auto) 7 % (0-9) Eosinophils (%) (Auto) 4 % (0-3) Basophils (%) (Auto) 1 % (0-3) Neutrophils # (Auto) 6.2 x10^3/uL (1.8-7.7) Lymphocytes # (Auto) 1.6 x10^3/uL (1.0-4.8) Monocytes # (Auto) 0.6 x10^3/uL (0.0-1.1) Eosinophils # (Auto) 0.4 x10^3/uL (0.0-0.7) Basophils # (Auto) 0.1 x10^3/uL (0.0-0.2) Sodium Level 144 mmol/L (136-145) Potassium Level 3.8 mmol/L (3.5-5.1) Chloride Level 108 mmol/L (98-107) Carbon Dioxide Level 30 mmol/L (21-32) Anion Gap 6 (6-14) Blood Urea Nitrogen 28 mg/dL (8-26) Creatinine 1.8 mg/dL (0.7-1.3) Estimated GFR (Cockcroft-Gault) 37.3 Glucose Level 78 mg/dL (70-99) Calcium Level 8.3 mg/dL (8.5-10.1) Microbiology Micro Microbiology 03/23/21 Gram Stain - Final, Complete 03/23/21 Aerobic and Anaerobic Culture - Final, Complete 03/23/21 Antimicrobic Susceptibility - Final, Complete 03/23/21 Urine Culture - Final, Complete 03/23/21 Antimicrobic Susceptibility - Final, Complete 03/22/21 Blood Culture - Final, Complete NO GROWTH AFTER 5 DAYS Physical Exam HEENT: Neck Supple W Full Motion Chest: Symmetric LUNGS: Clear to Auscultation Heart: RRR (SR ) Abdomen: Soft N/T, Other (obese) Extremities: Other (chronic LE lymphedema) Neurology: alert, oriented, follow commands Assessment Assessment 1. PAFIB; Maintaining SR 2. Chronic diastolic CHF: compensated. 3. Hypertension; controlled 3. CAD: no past intervention, clinically stable 5. PAD with chronic lymphedema and venous stasis. 6. SSS with PPM (Biotronik) 7. CKD; Cr stable 8. HLP; statin 9. Mild troponin elevation: 0.1 suspect demand mediated likely due to RVR 10. Hypokalemia: replaced Recommendations Continue metoprolol for rate control and amiodarone for rhythm maintenance Eliquis for stroke prophylaxis. Lasix therapy Secondary prevention Awaiting LTAC Follow up in our office with Dr. Diaz as scheduled Justicifation of Admission Dx: Justifications for Admission: Justification of Admission Dx: No MATY DIAZ MD 04/05/21 3700: CARDIO Progress Notes Plan Plan The patient was seen and interviewed as well as examined at the bedside. The chart was reviewed. The case was discussed. Agree with the plan of care. OLGA AGUIRRE APRN Apr 05, 2021 12:35 MATY DIAZ MD Apr 05, 2021 21:50
[2021-04-05] MEDS: ANTI-COAG MONITOR BY PHARMACY. MC PRN (13:05)
--- NOTE | 2021-04-05 15:50 | NUR ---
Wound/Ostomy Care Wound Type/Assessment: Wound care follow up for right plantar foot wound. Pt has open wound to right plantar foot with exposed bone and mild odor. Cleansed, pictured and measured wound. Lakia one wound noted on plantar foot but size is increased. Treatment Recommendations/Plan: Cleanse wound, apply hydrofera blue and foam, change every other day. Education provided: WC POC, PU prevention Offloading surface/device: half shoe with all ambulation, avoid pressure to wound Recommended Referrals/Tests: na Discharge Recommendations for dressings: see above
[2021-04-05] MEDS: ATORVASTATIN CALCIUM 20 MG TABLET PO SCH (20:30)
[2021-04-05] MEDS: LATANOPROST 0.005% OPHTH SOLUTION 2.5ML BOTTLE. OU SCH (20:30)
[2021-04-06] MEDS: PIPERACILLIN/TAZOBACTAM 3.375 GM in IV NORMAL SALINE 50ML 50 ML IV SCH ×3 (00:12→12:08)
[2021-04-06 03:00] VITALS: BP 117/63
[2021-04-06 06:00] LABS: BASO % 0 % (0-3); EOS # 0.5 x10^3/uL (0.0-0.7); EOS % 5 % (0-3); HEMATOCRIT 39.2 % (39.0-53.0); HEMOGLOBIN 12.8 g/dL (13.0-17.5); LYMPH # 1.4 x10^3/uL (1.0-4.8); LYMPH % 15 % (24-48); MEAN CORPUSCULAR HEMOGLOBIN 28 pg (25-35); MEAN CORPUSCULAR HGB CONC 33 g/dL (31-37); MEAN CORPUSCULAR VOLUME 87 fL (79-100); MONO # 0.7 x10^3/uL (0.0-1.1); MONO % 8 % (0-9); NEUT # 6.5 x10^3/uL (1.8-7.7); NEUT % 71 % (31-73); PLATELET COUNT 250 x10^3/uL (140-400); RED BLOOD COUNT 4.51 x10^6/uL (4.30-5.70); RED CELL DISTRIBUTION WIDTH 16.4 % (11.5-14.5); WHITE BLOOD COUNT 9.1 x10^3/uL (4.0-11.0)
[2021-04-06 06:14] LABS: CALCIUM 8.2 mg/dL (8.5-10.1); CREATININE 1.9 mg/dL (0.7-1.3); POTASSIUM 3.5 mmol/L (3.5-5.1)
[2021-04-06 07:00] VITALS: BP 124/76
--- NOTE | 2021-04-06 08:35 | SNU/HH DC ---
DISCHARGE ORDERS DISCHARGE INFORMATION: FINAL DIAGNOSIS Problems Medical Problems: (1) Atrial fibrillation with rapid ventricular response Status: Acute (2) Chest pain Status: Acute (3) Elevated troponin I level Status: Acute (4) Lymphedema of both lower extremities Status: Acute (5) Self-care deficit Status: Acute CONDITION ON DISCHARGE: Stable CODE STATUS: Code Status: Full JAIL: SNF STAY <30 DAYS: No HOSPICE: HOSPICE: No HOSPICE EVAL & TREAT: No LTAC: ADMIT TO LTAC: Yes POST DISCHARGE ORDERS: ACTIVITY ORDERS: Activity as tolerated WEIGHT BEARING STATUS: As tolerated BATHING ORDERS: Shower-keep dressing dry DIET AFTER DISCHARGE: Cardiac WOUND/INCISION CARE: Ice to area for comfort, May get incision wet CHECKS AFTER DISCHARGE: CHECKS AFTER DISCHARGE: Check blood press - daily TREATMENT/EQUIPMENT ORDERS: ADAPTIVE EQUIPMENT NEEDED: None Physical Therapy For: Evalulation/Treatment Occupational Therapy For: Evaluation/Treatment Speech Language Pathology For: Evaluation/Treatment DISCHARGE MEDICATIONS: Home Meds Active Scripts Atorvastatin Calcium (ATORVASTATIN CALCIUM) 20 Mg Tablet, 20 MG PO QHS, #30 TAB 2 Refills Prov:VÍCTOR BELL MD 12/04/15 Reported Medications Aspirin (ASPIRIN EC) 81 Mg Tablet., 1 TAB PO DAILY for heart health, #30 TAB 3 Refills 07/11/19 Brimonidine Tartrate/Timolol (COMBIGAN EYE DROPS) 5 Ml Drops, 5 ML OP BID, DROP 01/23/18 Latanoprost (LATANOPROST) 2.5 Ml Drops, 1 DROP EACHEYE QHS, #7.5 ML 3 Refills 11/30/15 TEE ORTIZ III DO Apr 06, 2021 08:35
--- NOTE | 2021-04-06 08:36 | PDOC ---
[employer] PROGRESS NOTE Date of Service DOS: DATE: 04/06/21 TIME: 08:35 Chief Complaint Chief Complaint Atrial fibrillation with RVR CHF HTN HLP Osteoarthritis BL extremity chronic wounds and ulcers Chronic Lymphedema Chronic venous stasis Right fifth metatarsal, possible osteomyelitis Inability to care for self ANTWAN (unknown baseline) Severe malnutrition History of Present Illness History of Present Illness 04/06/2021 Patient seen and examined Discussed with case management Discussed with RN Chart reviewed He might be going to long-term acute care today if bed available (I put the orders in) 04/05/2021 Patient seen and examined Chart reviewed Discussed with RN We are still awaiting placement 04/04/2021 No acute events overnight. Patient seen and examined bedside. Pending LTAC placement after insurance approval. Patient's chart, labs, images were reviewed and discussed with RN 04/03, in good spiritins, no events, still weak, plan LTAC placement if able, cont abx Pt and OT he is unable to transfer Vitals/I&O Vitals/I&O: Vital Signs Date Time Temp Pulse Resp B/P (MAP) Pulse Ox O2 Delivery O2 Flow Rate FiO2 04/06/21 03:00 99.0 70 17 117/63 (81) 99 Room Air 99.0 04/05/21 23:00 2.0 I & O0 04/05/21 04/05/21 04/06/21 15:00 23:00 07:00 Intake Total 580 ml 290 ml Balance 580 ml 290 ml Physical Exam Physical Exam: GENERAL: Alert, oriented x3 male, lying in bed comfortably, in no acute distress. HEENT: Normocephalic, atraumatic. Anicteric. No thrush. Oral mucosa moist. Right eye irritation improved NECK: Supple, no JVD. LUNGS: Clear bilaterally. No wheezing. HEART: RRR, S1, S2. No gallops or murmurs. Chest wall PPM site looks okay. ABDOMEN: Soft, obese. Bowel sounds present. Positive bowel sounds. EXTREMITIES: Bilateral chronic lymphedema and venous stasis. SKIN: Plantar surface on the right foot dressing taken down. Two small wounds. Lateral wound packed, probes through the bone. Wound is clean and healthy. No surrounding redness. No gross purulence. Heel ulcer is clean superficial. NEUROLOGIC: Alert, oriented x 3, grossly nonfocal. PSYCHIATRIC: Calm and cooperative. General: No acute distress, mild distress Heart: Regular rate Lungs: Clear Abdomen: Normal bowel sounds Extremities: No cyanosis, Other (LE lymphedema weeping) Skin: Other (LE venous dermaititis, chronic lyphemdema with right foot erythema) Labs Labs: Laboratory Tests Test 04/06/21 05:50 White Blood Count 9.1 x10^3/uL (4.0-11.0) Red Blood Count 4.51 x10^6/uL (4.30-5.70) Hemoglobin 12.8 g/dL (13.0-17.5) Hematocrit 39.2 % (39.0-53.0) Mean Corpuscular Volume 87 fL (79-100) Mean Corpuscular Hemoglobin 28 pg (25-35) Mean Corpuscular Hemoglobin Concent 33 g/dL (31-37) Red Cell Distribution Width 16.4 % (11.5-14.5) Platelet Count 250 x10^3/uL (140-400) Neutrophils (%) (Auto) 71 % (31-73) Lymphocytes (%) (Auto) 15 % (24-48) Monocytes (%) (Auto) 8 % (0-9) Eosinophils (%) (Auto) 5 % (0-3) Basophils (%) (Auto) 0 % (0-3) Neutrophils # (Auto) 6.5 x10^3/uL (1.8-7.7) Lymphocytes # (Auto) 1.4 x10^3/uL (1.0-4.8) Monocytes # (Auto) 0.7 x10^3/uL (0.0-1.1) Eosinophils # (Auto) 0.5 x10^3/uL (0.0-0.7) Basophils # (Auto) 0.0 x10^3/uL (0.0-0.2) Sodium Level 142 mmol/L (136-145) Potassium Level 3.5 mmol/L (3.5-5.1) Chloride Level 106 mmol/L (98-107) Carbon Dioxide Level 31 mmol/L (21-32) Anion Gap 5 (6-14) Blood Urea Nitrogen 26 mg/dL (8-26) Creatinine 1.9 mg/dL (0.7-1.3) Estimated GFR (Cockcroft-Gault) 35.0 Glucose Level 79 mg/dL (70-99) Calcium Level 8.2 mg/dL (8.5-10.1) Assessment and Plan Assessmemt and Plan Problems Medical Problems: (1) Atrial fibrillation with rapid ventricular response Status: Acute (2) Chest pain Status: Acute (3) Elevated troponin I level Status: Acute (4) Lymphedema of both lower extremities Status: Acute (5) Self-care deficit Status: Acute Atrial fibrillation with RVR CHF HTN HLP Osteoarthritis BL extremity chronic wounds and ulcers Chronic Lymphedema Chronic venous stasis Right fifth metatarsal, possible osteomyelitis Inability to care for self ANTWAN (unknown baseline) Severe malnutrition Plan Probable discharge to long-term acute care today if bed available; For now continue current care as follows; Home meds DVT prophylaxis Wound care Encourage p.o. intake Trend labs Comment Review of Relevant I have reviewed the following items marlene (where applicable) has been applied. Justifications for Admission Other Justification TEE ORTIZ III, DO Apr 06, 2021 08:36
--- NOTE | 2021-04-06 08:57 | PDOC ---
Infectious Disease Note Subjective: Subjective Patient without complaints Vital Signs: Vital Signs Vital Signs Date Time Temp Pulse Resp B/P (MAP) Pulse Ox O2 Delivery O2 Flow Rate FiO2 04/06/21 07:00 97.5 70 17 124/76 (92) 92 Room Air 97.5 04/05/21 23:00 2.0 Physical Exam: PHYSICAL EXAM GENERAL: Alert, oriented x3 male, lying in bed comfortably, in no acute distress. HEENT: Normocephalic, atraumatic. Anicteric. No thrush. Oral mucosa moist. Right eye irritation improved NECK: Supple, no JVD. LUNGS: Clear bilaterally. No wheezing. HEART: RRR, S1, S2. No gallops or murmurs. Chest wall PPM site looks okay. ABDOMEN: Soft, obese. Bowel sounds present. Positive bowel sounds. EXTREMITIES: Bilateral chronic lymphedema and venous stasis. SKIN: Plantar surface on the right foot dressing taken down. Two small wounds. Lateral wound packed, probes through the bone. Wound is clean and healthy. No surrounding redness. No gross purulence. Heel ulcer is clean superficial. NEUROLOGIC: Alert, oriented x 3, grossly nonfocal. PSYCHIATRIC: Calm and cooperative. Medications: Inpatient Meds: Medications reviewed. Labs: Lab Laboratory Tests Test 04/06/21 05:50 White Blood Count 9.1 x10^3/uL (4.0-11.0) Red Blood Count 4.51 x10^6/uL (4.30-5.70) Hemoglobin 12.8 g/dL (13.0-17.5) Hematocrit 39.2 % (39.0-53.0) Mean Corpuscular Volume 87 fL (79-100) Mean Corpuscular Hemoglobin 28 pg (25-35) Mean Corpuscular Hemoglobin Concent 33 g/dL (31-37) Red Cell Distribution Width 16.4 % (11.5-14.5) Platelet Count 250 x10^3/uL (140-400) Neutrophils (%) (Auto) 71 % (31-73) Lymphocytes (%) (Auto) 15 % (24-48) Monocytes (%) (Auto) 8 % (0-9) Eosinophils (%) (Auto) 5 % (0-3) Basophils (%) (Auto) 0 % (0-3) Neutrophils # (Auto) 6.5 x10^3/uL (1.8-7.7) Lymphocytes # (Auto) 1.4 x10^3/uL (1.0-4.8) Monocytes # (Auto) 0.7 x10^3/uL (0.0-1.1) Eosinophils # (Auto) 0.5 x10^3/uL (0.0-0.7) Basophils # (Auto) 0.0 x10^3/uL (0.0-0.2) Sodium Level 142 mmol/L (136-145) Potassium Level 3.5 mmol/L (3.5-5.1) Chloride Level 106 mmol/L (98-107) Carbon Dioxide Level 31 mmol/L (21-32) Anion Gap 5 (6-14) Blood Urea Nitrogen 26 mg/dL (8-26) Creatinine 1.9 mg/dL (0.7-1.3) Estimated GFR (Cockcroft-Gault) 35.0 Glucose Level 79 mg/dL (70-99) Calcium Level 8.2 mg/dL (8.5-10.1) Micro RUN DATE: 03/28/21 [facility] *LIVE* PAGE 1 RUN TIME: 924 Specimen Inquiry PATIENT: JOSE MERCADO Rey ACCT: [id number] LOC: [address] [place] [address] U: [id number] AGE/SX: 70/M ROOM: 665 RE03/22/[address]: TEE ORTIZ III DO : 1950 BED: 1 DIS: STATUS: ADM IN TLOC: SPEC #: [id number] YENI: 03/23/21 STATUS: COMP REQ #: [id number] RECD: 03/23/[address] [facility] [address]: TEE ORTIZ III, DO SOURCE: FOOT ENTR: 03/23/[address]: JODI CARABALLO DO [facility]: NAVARRO DECKER MD,MATY BRO,CURTIS Conrad MD NO PCP ORDERED: ANAER/AEROB/GS COMMENTS: Has specimen been collected/obtained R 5TH TOE WOUND ------- ----- Procedure Result GRAM STAIN Final Final GRAM NEGATIVE RODS:MANY GRAM POSITIVE COCCI:MANY SQUAMOUS EPI CELL:FEW PMN (WBCs):MODERATE Unless otherwise specified, Testing Performed by: [address] [address] For Inquires, the Physician may contact the Microbiology department at [phone] ANAEROBIC-AEROBIC CULTURE Final Final MIXED AEROBIC AND ANAEROBIC GUALBERTO on 03/25/21 at 1210 INCLUDING: FEW GRAM NEGATIVE RODS on 03/24/21 at 0901 FINAL ID= [PROTEUS MIRABILIS], SEE TAQUERIA ON [id number] RARE [STAPHYLOCOCCUS EPIDERMIDIS] FEW [CORYNEBACTERIUM AMYCOLATUM] FEW [ENTEROCOCCUS AVIUM] MODERATE [BACTEROIDES THETAIOTAOMICRON G] MODERATE [ANAEROCOCCUS VAGINALIS] MANY [PREVOTELLA SPECIES] PROTEUS MIRABILIS STAPHYLOCOCCUS EPIDERMIDIS CORYNEBACTERIUM AMYCOLATUM ENTEROCOCCUS AVIUM BACTEROIDES THETAIOTAOMICRON G ANAEROCOCCUS VAGINALIS PREVOTELLA SPECIES Unless otherwise specified, Testing Performed by: [facility] [address] [place] [address] RUN DATE: 03/28/21 [facility] *LIVE* PAGE 2 RUN TIME: 09 Specimen Inquiry SPEC: [id number] PATIENT: MERCADOJOSE [id number] (Continued) Procedure Result CONTINUED ON NEXT PAGE --- --------- RUN DATE: 03/28/21 [facility] *LIVE* PAGE 3 RUN TIME: 0925 Specimen Inquiry SPEC: [id number] PATIENT: JOSE MERCADO [id number] (Continued) Procedure Result ANAEROBIC-AEROBIC CULTURE Final (continued) For Inquires, the Physician may contact the Microbiology department at [phone] RUN DATE: 03/28/21 [facility] *LIVE* PAGE 1 RUN TIME: 0914 Specimen Inquiry PATIENT: JOSE MERCADO ACCT: [id number] LOC: [facility] U: [id number] AGE/SX: 70/M ROOM: 665 RE03/22/[address]: TEE ORTIZ III, DO : 1950 BED: 1 DIS: STATUS: ADM IN TLOC: SPEC #: [id number] YENI: 03/23/21 STATUS: COMP REQ #: [id number] RECD: 03/23/[address]: TEE ORTIZ III, DO SOURCE: FOOT ENTR: 03/23/[address]: JODI CARABALLO DO SPDESC: WOUND NAVARRO JJ MD,CURTIS VASQUEZ MD, MD NO PCP ORDERED: ANAER/AERCITLALI/DAKOTA COMMENTS: Has specimen been collected/obtained? Y R HEEL WOUND Procedure Result GRAM STAIN Final Final GRAM NEGATIVE RODS:RARE GRAM POSITIVE COCCI:RARE RBC:MODERATE SQUAMOUS EPI CELL:RARE PMN (WBCs):RARE Unless otherwise specified, Testing Performed by: [address] [address] For Inquires, the Physician may contact the Microbiology department at [phone] ANAEROBIC-AEROBIC CULTURE Final Final MIXED AEROBIC AND ANAEROBIC GUALBERTO on 03/25/21 at 1206 INCLUDING: FEW GRAM NEGATIVE RODS on 03/24/21 at 0855 FINAL ID= [PROTEUS MIRABILIS] FEW [BACTEROIDES OVATUS GROUP] on 03/25/21 at 1206 MODERATE [ANAEROCOCCUS VAGINALIS] on 03/25/21 at 1207 FEW Mixed skin gualberto isolated on 03/27/21 at 1055 PROTEUS MIRABILIS UNIDENTIFIED ORGANISM BACTEROIDES OVATUS GROUP ANAEROCOCCUS VAGINALIS ANTIMICROBIAL SUSCEPTIBILITY Final Comment NEG TAQUERIA 56 PROTEUS MIRABILIS ANTIBIOTIC RESULT INTERPRETATION AMPICILLIN/SULBACTAM <=4/2 S AMIKACIN <=16 S RUN DATE: 03/28/21 [facility] *LIVE* PAGE 2 RUN TIME: 0920 Specimen Inquiry --------- --- SPEC: [id number] PATIENT: JOSE MERCADO Rey [id number] (Continued) Procedure Result CONTINUED ON NEXT PAGE RUN DATE: 03/28/21 [facility] *LIVE* PAGE 3 RUN TIME: 0920 Specimen Inquiry SPEC: [id number] PATIENT: JOSE MERCADO [id number] (Continued) Procedure Result ANTIMICROBIAL SUSCEPTIBILITY Final (continued) AMPICILLIN <=8 S AMOXICILLIN/K CLAVULANATE <=8/4 S AZTREONAM <=4 S CEFTRIAXONE <=1 S CEFTAZIDIME <=1 S CEFOTAXIME <=2 S CEFOXITIN <=8 S CEFAZOLIN <=2 S CIPROFLOXACIN <=0.25 S CEFEPIME <=2 S CEFUROXIME <=4 S CEFTAZIDIME/AVIBACTAM <=4 S ERTAPENEM <=0.5 S GENTAMICIN <=2 S LEVOFLOXACIN <=0.5 S MEROPENEM <=1 S PIPERACILLIN/TAZOBACTAM <=8 S TRIMETHOPRIM/SULFAMETHOXAZOLE <=0.5/9.5 S TETRACYCLINE <=4 R* TOBRAMYCIN <=2 S Unless otherwise specified, Testing Performed by: [address] [address] For Inquires, the Physician may contact the Microbiology department at [phone] Objective: Assessment: Chronic right fifth metatarsal nonhealing wound, Foot xray suggests osteomyelitis right 5th metatarsal bone,concern for adequate healing with exposed bone Follow-up cultures polymicrobial including Proteus mirabilis and Enterococcus avium Discussed with micro lab Enterococcus avium susceptibilities are not available due to polymicrobial growth on cultures PAD Chronic right plantar ulcerations, Chronic lymphedema, chronic venous stasis, atrial fibrillation,status post PPM, CHF, hypertension, hyperlipidemia, osteoarthritis, History of glaucoma chest pain, elevated troponin poa, self-care deficit. 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 Last CK 39 on 04/03/2021 When ready for discharge patient will need daptomycin and IV Invanz, first dose of Invanz here before discharge Continue local wound care as directed Strict offload If patient does not get optimal response with above antibiotic treatment will need surgical debridement Vascular recommendations reviewed. MRI prior to proceeding with any surgical debridement or removal of bone to confirm osteomyelitis. 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
[2021-04-06] MEDS: SENNOSIDES/DOCUSATE 8.6/50MG TABLET. PO SCH (09:00)
[2021-04-06] MEDS: LACTOBACILLUS RHAMNOSUS GG 1 CAPSULE. PO SCH (09:24)
[2021-04-06] MEDS: AMIODARONE HCL 200 MG TABLET. PO SCH (09:24)
[2021-04-06] MEDS: BRIMONIDINE 0.2% OPHTH SOLUTION 5ML BOTTLE. OD SCH (09:25)
[2021-04-06] MEDS: ASPIRIN ENTERIC COATED 81 MG TABLET.DR. PO SCH (09:25)
[2021-04-06] MEDS: METOPROLOL TART IMMED RELEASE 25 MG TABLET. PO SCH (09:25)
[2021-04-06] MEDS: FUROSEMIDE 40 MG TABLET. PO SCH (09:25)
[2021-04-06] MEDS: APIXABAN 5 MG TABLET. PO SCH (09:25)
[2021-04-06] MEDS: TIMOLOL 0.25% OPHTH SOLUTION 5ML BOTTLE. OU SCH (09:25)
[2021-04-06 11:00] VITALS: BP 99/61
[2021-04-06] MEDS: DAPTOmycin (GENERIC) IVPB 560 MG in IV NORMAL SALINE 50ML 50 ML IV SCH (11:31)
[2021-04-06] MEDS ORDERED: AMIO200T53 PO (12:36)
[2021-04-06] MEDS ORDERED: SENN1TAB99 PO (12:36)
[2021-04-06] MEDS ORDERED: FURO40TA4 PO (12:36)
[2021-04-06] MEDS ORDERED: ACET325T9 PO (12:36)
[2021-04-06] MEDS ORDERED: LACT1CAP19 PO (12:36)
[2021-04-06] MEDS ORDERED: METO25TA4 PO (12:36)
[2021-04-06] MEDS ORDERED: APIX5TAB PO (12:36)
[2021-04-06] MEDS ORDERED: ZOLP5TAB PO (12:36)
[2021-04-06] MEDS ORDERED: ERTAPENEM 0.5 GM in IV NORMAL SALINE 50ML 50 ML IV ONE (12:45)
--- NOTE | 2021-04-06 13:24 | NUR ---
SS assisting with discharge planning. Bed available at [facility], ; fax [phone]. Alayna LUBIN, send discharge orders to [facility]. SS assisted with transportation. Pt will discharge today and go to [facility] at 1500 via [facility] ambulance, . Packet and ambulance form on the chart. Report number provided to pt's RN.
--- NOTE | 2021-04-06 13:47 | NUR ---
SW following. Discussed with RN, bed at [facility] for pt today. Discharge orders given to Nicholas from [facility]. [facility] transportation arranged by Louisa Velez) for 1500. RN notified. No further SW needs.
[2021-04-06 15:00] VITALS: BP 105/63
--- NOTE | 2021-04-06 16:42 | NUR ---
Discharge Note: JOSE MERCADO Discharge instructions and discharge home medications reviewed with Other facility and a copy given. All questions have been answered and understanding verbalized. The following instructions and handouts were given: copy of chart and discharge instructions and new prescription. PICC Line DL intact and patent. Patient discharged to [facility] with Ambulance Personnel via [facility]
--- NOTE | 2021-04-27 12:42 | DS ---
DATE OF DISCHARGE: 04/06/2021 ADMISSION DIAGNOSIS: Atrial fibrillation with rapid ventricular response. DISCHARGE DIAGNOSES: Resolving fibrillation with rapid ventricular response, history of congestive heart failure (acute on chronic systolic and diastolic), hypertension, hyperlipidemia, osteoarthritis, bilateral lower extremity chronic wounds and ulcers, lymphedema, venous stasis ulcers, right fifth metatarsal osteomyelitis, acute kidney injury, severe malnutrition, inability to care for himself. CONSULTS: Nephrology, Vascular Surgery, Podiatry and Cardiology. PROCEDURES: None. HOSPITAL COURSE: The patient is a pleasant elderly male who has multiple comorbidities, presented with AFib with RVR. He was admitted and the above consults were obtained. We used IV negative chronotropic agents and then converted them to p.o. He is also anticoagulated. He saw Podiatry and Vascular Surgery to assist with his wound care and over the next week or so, he got somewhat better. We have to discharge to long-term care. DISPOSITION: Long-term care. ACTIVITY: As tolerated. DIET: Low sodium. DISCHARGE MEDICATIONS: Please see the MRAD. Tylenol p.r.n., amiodarone 200 daily, Eliquis 5 b.i.d., aspirin 81 a day, atorvastatin 20 a day, Combigan eyedrops, Lasix 40 a day, lactobacillus, latanoprost eyedrops, metoprolol 25 b.i.d., senna, and Ambien 5 at bedtime. Total time 32 minutes. Jeff/[facility] DR: AMIRA/tara TID: [id number]
== END 2021-04-06 17:01 | disposition still patient (30) | DRG 463 ==
LOC: ER 11:27 → ED HOLD 14:10 → 6 SOUTH 15:13 → 5 NORTH 04-04 18:43
PROVIDERS: ADMIT Internal Medicine; ATTEND Internal Medicine
PROC: 02HV33Z Insertion of Infusion Device into Superior Vena Cava, Percutaneous Approach (ICD-10-PCS; principal; 2021-03-22)
PROC: B5181ZA Fluoroscopy of Superior Vena Cava using Low Osmolar Contrast, Guidance (ICD-10-PCS; 2021-03-22)
PROC: B548ZZA Ultrasonography of Superior Vena Cava, Guidance (ICD-10-PCS; 2021-03-22)
PROC: 0JBQ0ZZ Excision of Right Foot Subcutaneous Tissue and Fascia, Open Approach (ICD-10-PCS; 2021-03-23)
PROC: B410YZZ Fluoroscopy of Abdominal Aorta using Other Contrast (ICD-10-PCS; 2021-03-28)
DX: M86.9 Osteomyelitis, unspecified (principal); N17.0 Acute kidney failure with tubular necrosis; E43 Unspecified severe protein-calorie malnutrition; I50.43 Acute on chronic combined systolic (congestive) and diastolic (congestive) heart failure; L03.115 Cellulitis of right lower limb; I70.201 Unspecified atherosclerosis of native arteries of extremities, right leg; E78.5 Hyperlipidemia, unspecified; E86.0 Dehydration; E87.6 Hypokalemia; G62.9 Polyneuropathy, unspecified; H40.9 Unspecified glaucoma; H54.61 Unqualified visual loss, right eye, normal vision left eye; I25.10 Atherosclerotic heart disease of native coronary artery without angina pectoris; I25.5 Ischemic cardiomyopathy; I44.7 Left bundle-branch block, unspecified; I48.0 Paroxysmal atrial fibrillation; I49.5 Sick sinus syndrome; I87.2 Venous insufficiency (chronic) (peripheral); L84 Corns and callosities; I87.8 Other specified disorders of veins; I89.0 Lymphedema, not elsewhere classified; L97.519 Non-pressure chronic ulcer of other part of right foot with unspecified severity; M19.90 Unspecified osteoarthritis, unspecified site; N18.30 Chronic kidney disease, stage 3 unspecified; N40.0 Benign prostatic hyperplasia without lower urinary tract symptoms; Z91.19 Patient's noncompliance with other medical treatment and regimen; Z95.0 Presence of cardiac pacemaker; K21.9 Gastro-esophageal reflux disease without esophagitis; B96.4 Proteus (mirabilis) (morganii) as the cause of diseases classified elsewhere; B95.7 Other staphylococcus as the cause of diseases classified elsewhere; B95.2 Enterococcus as the cause of diseases classified elsewhere
CPT/HCPCS: 36247; 36415; 36573; 71045; 73620; 75625; 75710; 77001; 80048; 80053; 80202; 81001; 82550; 83605; 83735; 83880; 84443; 84484; 85025; 85347; 87040; 87071; 87075; 87076; 87077; 87086; 87186; 87426; 90471; 90686; 93005; 93923; 96361; 96372; 96374; 96375; 99152; 99153; C1751; C1892; C1894; J0282; J0878; J1160; J1335; J1644; J1650; J1940; J2250; J2543; J3010; J3370; J3490; J7040; J7060; Q9967; U0003; U0005; 97116-GP; 97530-GO; 97530-GP; 97535-GO; 99285-25; G0378

== ENCOUNTER 2021-06-18 12:06 | Inpatient (IN) | payer OTHER ==
[~2021-06-18] VITALS: Ht 182.9 cm; Wt 108.3 kg
[~2021-06-18 12:06] MED LIST changes: +ACET325T9 PO; +AMIO200T53 PO; +APIX5TAB PO; +CEFD300C PO; +LACT1CAP19 PO; +SENN1TAB99 PO; +ZOLP5TAB PO
[2021-06-18] MEDS ORDERED: NITROGLYCERIN SUBLINGUAL 0.4 MG BOTTLE OF 25. SL PRN (12:15)
--- NOTE | 2021-06-18 12:34 | RAD ---
EXAMINATION: Chest radiograph. VIEWS: 1 COMPARISON: 07/13/2020 INDICATION:70 years, Male, chest pain. FINDINGS: Stable mild cardiomegaly. Diffuse bilateral pulmonary reticulations. No focal consolidation. Possible small right pleural effusion. No pneumothorax. No acute osseous process. Left chest wall pacemaker d evice remains unchanged in position. IMPRESSION: 1. Diffuse bilateral pulmonary reticulations may represent mild interstitial edema. 2. Possible small right pleural effusion. Electronically signed by: Manuela Diggs MD (06/18/2021 12:32 PM) [facility]
--- NOTE | 2021-06-18 12:42 | PHYS DOC ---
Past Medical History Past Medical History: A-Fib, Glaucoma, Heart Disease, Vascular Disease Additional Past Medical Histor: [place],blind right eye,lymphadema,poor historian Past Surgical History: Pacemaker, Other Additional Past Surgical Histo: PROSTATE Smoking Status: Former Smoker Alcohol Use: None Drug Use: None General Adult EDM: Chief Complaint: CHEST PAIN HPI: HPI: Patient is a 70 year old male who presents with this morning started having midsternal chest pain and pressure with increased shortness of breath. He was just discharged here yesterday. Patient lives at home with his brother and they have no heat but they do have water and electricity. Patient states unable to take care of himself. Patient was given a 325 mg aspirin by EMS prior to arrival. Patient states his pain is at a 2 out of 10 at this time. He states that it has gotten better since he has gotten here. Patient has a history of lymphedema, CHF, acute renal failure's pneumonia, A. fib, heart disease, pacemaker, left eye blindness, vascular disease, glaucoma. Review of Systems: Review of Systems: Constitutional: Denies fever or chills. [] Eyes: Denies change in visual acuity. [] HENT: Denies nasal congestion or sore throat. [] Respiratory: Denies cough or +shortness of breath. [] Cardiovascular: + chest pain or +edema. [] GI: Denies abdominal pain, nausea, vomiting, bloody stools or diarrhea. [] : Denies dysuria. [] Musculoskeletal: Denies back pain or joint pain. [] Integument: Denies rash. [] Neurologic: Denies headache, focal weakness or sensory changes. [] Endocrine: Denies polyuria or polydipsia. [] Lymphatic: Denies swollen glands. [] Psychiatric: Denies depression or anxiety. [] Heart Score: C/O Chest Pain: Yes HEART Score for Chest Pain: HEART Score for Chest Pain Response (Comments) Value History Moderately Suspicious 1 ECG Nonspecific Repolarizatio 1 Age > 65 2 Risk Factors >3 Risk Factors or Hx CAD 2 Troponin < Normal Limit 0 Total 6 Risk Factors: Risk Factors: DM, Current or recent (<one month) smoker, HTN, HLP, family history of CAD, obesity. Risk Scores: Score 0 - 3: 2.5% MACE over next 6 weeks - Discharge Home Score 4 - 6: 20.3% MACE over next 6 weeks - Admit for Clinical Observation Score 7 - 10: 72.7% MACE over next 6 weeks - Early Invasive Strategies Current Medications: Current Medications Medications (Trade) Dose Ordered Sig/Placido Start Time Stop Time Status Last Admin Dose Admin Nitroglycerin (Nitrostat) 0.4 mg PRN Q5MIN PRN 06/18/21 12:15 Allergies: Allergies: Allergies Coded Allergies Type Severity Reaction Last Updated Verified No Known Drug Allergies 03/22/21 No Physical Exam: PE: Constitutional: Well developed, well nourished, no acute distress, non-toxic appearance. [] HENT: Normocephalic, atraumatic, bilateral external ears normal, oropharynx moist, no oral exudates, nose normal. [] Eyes: PERRLA, EOMI, conjunctiva normal, no discharge. [] Neck: Normal range of motion, no tenderness, supple, no stridor. [] Cardiovascular:Heart rate regular rhythm, no murmur [] Lungs & Thorax: Bilateral upper breath sounds clear lower diminished to auscultation [] Abdomen: Bowel sounds normal, soft, no tenderness, no masses, no pulsatile ma sses. [] Skin: Warm, dry, no erythema, no rash. [] Back: No tenderness, no CVA tenderness. [] Extremities: No tenderness, no cyanosis, no clubbing, ROM intact, bilateral lower edema 3+ edema. [] Neurologic: Alert and oriented X 3, normal motor function, normal sensory function, no focal deficits noted. [] Psychologic: Affect normal, judgement normal, mood normal. [] Current Patient Data: Vital Signs: Vital Signs Date Time Temp Pulse Resp B/P (MAP) Pulse Ox O2 Delivery O2 Flow Rate FiO2 06/18/21 12:06 97.5 81 20 82/53 (63) 99 Room Air 97.5 EKG: EK and read by Dr. Keller ventricular paced rhythm. Radiology/Procedures: Radiology/Procedures: [] Impression: [facility] [address] [place], [place] [id number] IMAGING REPORT Signed PATIENT: JOSE MERCADO ACCOUNT: [id number] : 1950 LOCATION: ER AGE: 70 SEX: M EXAM STATUS: PRE ER ORD. PHYSICIAN: MARGARITA BUTLER APRN REASON: chest pain PROCEDURE: PORTABLE CHEST 1V EXAMINATION: Chest radiograph. VIEWS: 1 COMPARISON: 07/13/2020 INDICATION:70 years, Male, chest pain. FINDINGS: Stable mild cardiomegaly. Diffuse bilateral pulmonary reticulations. No focal consolidation. Possible small right pleural effusion. No pneumothorax. No acute osseous process. Left chest wall pacemaker device remains unchanged in position. IMPRESSION: 1. Diffuse bilateral pulmonary reticulations may represent mild interstitial edema. 2. Possible small right pleural effusion. Electronically signed by: Meño Diggs MD (06/18/2021 12:32 PM) [facility] DICTATED and SIGNED BY: MEÑO DIGGS MD DATE: 06/18/21 [id number] Course & Med Decision Making: Course & Med Decision Making Pertinent Labs and Imaging studies reviewed. (See chart for details) See HPI. Alert and oriented x4. Speaks in full clear sentences. bilateral lower legs 3+ swelling. Lungs are clear in upper lobes diminished in lower lobes. Patient's blood pressure in the 80s over 60s. I have ordered 500 mL bolus for the patient. His kidney function is also elevated compared to yesterday. Patient is probably dehydrated due to him not be able to take care of himself. He is not hypoxic. He is not tachycardic. He is afebrile. Abdomen soft and nontender. I did call Dr. Meneses concerning this patient and let him see the EKG. He states that they will follow along but he does not think that the patient is currently having a STEMI. Patient is needing placement as he cannot take care of himself and does not have any heat at home. He states he cannot walk very well. Patient admitted to Dr. Lucas. [] Timmy Disclaimer: Timmy Disclaimer: This electronic medical record was generated, in whole or in part, using a voice recognition dictation system. Departure Departure Impression: Primary Impression: Acute renal failure Qualified Codes: N17.9 - Acute kidney failure, unspecified Additional Impressions: Chest pain Qualified Codes: R07.9 - Chest pain, unspecified Hypotension Qualified Codes: I95.9 - Hypotension, unspecified Unable to care for self Disposition: ADMITTED INPATIENT Admitting Physician: ASHLEY Condition: STABLE Referrals: Francis SHIELDS MD (PCP) MARGARITA BUTLER APRN Jun 18, 2021 12:42
[2021-06-18 12:52] LABS: BASO # 0.1 x10^3/uL (0.0-0.2); BASO % 1 % (0-3); EOS # 0.1 x10^3/uL (0.0-0.7); EOS % 1 % (0-3); HEMATOCRIT 43.6 % (39.0-53.0); HEMOGLOBIN 14.8 g/dL (13.0-17.5); LYMPH # 1.4 x10^3/uL (1.0-4.8); LYMPH % 12 % (24-48); MEAN CORPUSCULAR HEMOGLOBIN 29 pg (25-35); MEAN CORPUSCULAR HGB CONC 34 g/dL (31-37); MEAN CORPUSCULAR VOLUME 86 fL (79-100); MONO # 0.8 x10^3/uL (0.0-1.1); MONO % 7 % (0-9); NEUT # 9.2 x10^3/uL (1.8-7.7); NEUT % 79 % (31-73); PLATELET COUNT 334 x10^3/uL (140-400); RED BLOOD COUNT 5.07 x10^6/uL (4.30-5.70); RED CELL DISTRIBUTION WIDTH 17.1 % (11.5-14.5); WHITE BLOOD COUNT 11.6 x10^3/uL (4.0-11.0)
[2021-06-18 13:01] LABS: CALCIUM 8.8 mg/dL (8.5-10.1); CREATININE 2.5 mg/dL (0.7-1.3); GFR 25.5; POTASSIUM 4.1 mmol/L (3.5-5.1)
[2021-06-18 13:06] LABS: ALBUMIN 2.9 g/dL (3.4-5.0); ALBUMIN/GLOBULIN RATIO 0.6 (1.0-1.7); MAGNESIUM 2.1 mg/dL (1.8-2.4); TOTAL BILIRUBIN 0.3 mg/dL (0.2-1.0); TOTAL PROTEIN 7.8 g/dL (6.4-8.2)
[2021-06-18] MEDS ORDERED: IV NORMAL SALINE 1000ML BAG 1,000 ML IV ONE (13:15)
[2021-06-18] MEDS ORDERED: IV NORMAL SALINE 500ML BAG 500 ML IV ONE (13:30)
--- NOTE | 2021-06-18 15:20 | HP ---
DATE OF SERVICE: 06/18/2021 ADMIT DATE: 06/18/2021 CHIEF COMPLAINT: Chest pain. HISTORY OF PRESENT ILLNESS: The patient is a pleasant 70-year-old male well known to my service. Basically, he lives at home with no running water, no electricity, no heat. He lives there with his brother Ritesh. Today, he presents to the ER via EMS with chest pain, it is midsternal pressure with some associated shortness of breath. He was apparently just discharged yesterday. While here in the ER, we have noticed that he was also hypotensive and has renal failure. I discussed the case with ER physician. We are going to admit the patient and consult Cardiology and Nephrology. PAST MEDICAL HISTORY: Glaucoma, AFib, coronary artery disease, peripheral vascular disease, hard of hearing, blind in the right eye, severe lymphedema, poor historian, pacemaker, prostate surgery, previous tobacco abuse. ALLERGIES: None. FAMILY HISTORY: Diabetes. SOCIAL HISTORY: He quit smoking. No drink or drugs. He lives at home with his brother Ritesh. The house, they apparently inherited from their mother as I understand it. It has no running water or heat or electricity. There was a gentleman who bought the house recently, was going to let them live in, but the patient tells me that the new boarder hand has not even turn the water on or the heat and is thinking of getting them out of the house? MEDICATIONS: Reviewed. Please refer to the MRAD. REVIEW OF SYSTEMS: GENERAL: No history of weight change, weakness or fevers. SKIN: No bruising, hair changes or rashes. EYES: No blurred, double or loss of vision. NOSE AND THROAT: No history of nosebleeds, hoarseness or sore throat. HEART: He complains of chest pain. LUNGS: Denies cough, hemoptysis, wheezing or shortness of breath. GASTROINTESTINAL: Denies changes in appetite, nausea, vomiting, diarrhea or constipation. GENITOURINARY: No history of frequency, urgency, hesitancy or nocturia. NEUROLOGIC: Denies history of numbness, tingling, tremor or weakness. PSYCHIATRIC: No history of panic, anxiety or depression. ENDOCRINE: No history of heat or cold intolerance, polyuria or polydipsia. EXTREMITIES: Denies muscle weakness, joint pain, pain on walking or stiffness. PHYSICAL EXAMINATION: VITALS: Within normal limits and are stable. GENERAL: He is very weak and depressed. HEENT: Normal cephalic atraumatic, external auditory canals are patent. EYES: Extraocular muscles are intact, pupils are equally round and reactive to light and accommodation. MUSCULOSKELETAL: Well developed, well nourished, good range of motion. ENDOCRINE: No thyromegaly was palpated. LYMPHATICS: No cervical chain or axillary nodes were noted. HEMATOPOIETIC: No bruising. NECK: Supple, no JVD, no thyromegaly was noted. LUNGS: He has decreased breath sounds. HEART: RRR, S1, S2 present. Peripheral pulses intact, no obvious murmurs were noted. ABDOMEN: Soft, nontender. Positive bowel sounds no organomegaly, normal bowel sounds. EXTREMITIES: He has 3+ peripheral edema, which is his baseline. NEUROLOGIC: He is very weak and depressed. PSYCHIATRIC: He is very weak and depressed. SKIN: He has severe hyperkeratotic lesions on the lower extremities. Please see the pictures. VASCULAR: Good capillary refill, neurovascular bundle appears to be intact. LABORATORY DATA: White count is 11.6. Electrolytes are normal except for a BUN of 35, a creatinine of 2.5. Troponin is 13. BNP 986. ASSESSMENT AND PLAN: Chest pain in an elderly male who has known coronary artery disease with chronic renal failure and multiple comorbidities. The patient has been admitted. We will consult Nephrology and Cardiology. Home meds. Deep venous thrombosis prophylaxis. Full code. Cardiac monitoring. web services developer consult for his living situation. P.r.n. nitro. O2 per nasal cannula. LÓPEZ DR: Radha TID: [id number]
[2021-06-18 16:05] VITALS: BP 137/65
[2021-06-18] MEDS ORDERED: ACETAMINOPHEN 325 MG TABLET. PO PRN (17:30)
--- NOTE | 2021-06-18 19:13 | EKG ---
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
[2021-06-18 19:21] VITALS: BP 113/58
[2021-06-18] MEDS: APIXABAN 5 MG TABLET. PO SCH (21:05)
[2021-06-18] MEDS: LACTOBACILLUS RHAMNOSUS GG 1 CAPSULE. PO SCH (21:05)
[2021-06-18] MEDS: LATANOPROST 0.005% OPHTH SOLUTION 2.5ML BOTTLE. OU SCH (21:05)
[2021-06-18] MEDS: CEFDINIR 300 MG CAPSULE PO SCH (21:05)
[2021-06-18] MEDS: METOPROLOL TART IMMED RELEASE 25 MG TABLET. PO SCH (21:05)
[2021-06-18] MEDS: ATORVASTATIN CALCIUM 20 MG TABLET PO SCH (21:05)
[2021-06-18 22:46] VITALS: BP 140/62
[2021-06-19 03:31] VITALS: BP 97/55
[2021-06-19 07:00] VITALS: BP 128/59
[2021-06-19] MEDS: APIXABAN 5 MG TABLET. PO SCH ×2 (09:28→20:37)
[2021-06-19] MEDS: CEFDINIR 300 MG CAPSULE PO SCH ×2 (09:28→20:37)
[2021-06-19] MEDS: FUROSEMIDE 40 MG TABLET. PO SCH (09:28)
[2021-06-19] MEDS: AMIODARONE HCL 200 MG TABLET. PO SCH (09:28)
[2021-06-19] MEDS: ASPIRIN ENTERIC COATED 81 MG TABLET.DR. PO SCH (09:28)
[2021-06-19] MEDS: LACTOBACILLUS RHAMNOSUS GG 1 CAPSULE. PO SCH ×2 (09:29→20:37)
[2021-06-19] MEDS: METOPROLOL TART IMMED RELEASE 25 MG TABLET. PO SCH ×2 (09:29→20:37)
[2021-06-19 10:00] VITALS: BP 109/59
[2021-06-19] MEDS: TIMOLOL 0.5% OPHTH SOLUTION 5ML BOTTLE. OU SCH ×2 (13:57→20:38)
[2021-06-19] MEDS: BRIMONIDINE 0.2% OPHTH SOLUTION 5ML BOTTLE. OU SCH ×2 (13:58→20:38)
[2021-06-19 15:00] VITALS: BP 106/57
--- NOTE | 2021-06-19 15:38 | PDOC2 ---
CONSULT Date of Consult Date of Consult DATE: 06/19/21 TIME: 15:31 Reason for Consult Reason for Consult: Chest pain Referring Physician Referring Physician: Dr. Lucas Identification/Chief Complaint Chief Complaint Chest pain and shortness of breath Source Source: Chart review, Patient History of Present Illness Reason for Visit: The patient is a 70-year-old male who was admitted for chest discomfort and increasing shortness of breath. Apparently he was just recently discharged. However [facility] home he has no heat. In the emergency room the patient chest x- ray showed bilateral pleural reticulations which may be secondary to pneumonia. There is also a possible small right pleural effusion. Initial blood tests include a potassium of 4.1, creatinine of 2.5, BNP of 986 and a troponin of 13. His EKG showed a V-paced rhythm. This morning the patient is feeling significantly better. His chest discomfort has resolved. He is feeling less shortness of breath but still feels quite weak. Past Medical History Cardiovascular: AFIB, CAD, CHF, HTN, Hyperlipidemia, Other (Vascular disease and a permanent pacemaker.) Pulmonary: No pertinent hx CENTRAL NERVOUS SYSTEM: Other GI: GERD Heme/Onc: Anemia NOS Hepatobiliary: No pertinent hx Psych: No pertinent hx Musculoskeletal: Osteoarthritis Rheumatologic: No pertinent hx Infectious disease: No pertinent hx Renal/: Chronic renal insuff, Benign prostatic enlarg. Endocrine: No pertinent hx Past Surgical History Past Surgical History: Pacemaker, Other Family History Family History: Heart Disease Social History No ALCOHOL: none Drugs: None Lives: with Family Current Problem List Problem List Problems Medical Problems: (1) Acute renal failure Status: Acute (2) Chest pain Status: Acute (3) Hypotension Status: Acute (4) Unable to care for self Status: Acute Current Medications Current Medications Current Medications Nitroglycerin (Nitrostat) 0.4 mg PRN Q5MIN PRN SL CHEST PAIN; Start 06/18/21 at 12:15 Sodium Chloride 1,000 ml @ 1,000 mls/hr 1X ONCE IV Last administered on 06/18/21at 13:17; Start 06/18/21 at 13:15; Stop 06/18/21 at 13:22; Status DC Sodium Chloride 500 ml @ 500 mls/hr 1X ONCE IV ; Start 06/18/21 at 13:30; Stop 06/18/21 at 14:29; Status DC Acetaminophen (Tylenol) 650 mg PRN Q6HRS PRN PO MILD PAIN / TEMP > 100.3'F; Start 06/18/21 at 17:30 Amiodarone HCl (Cordarone) 200 mg DAILY PO Last administered on 06/19/21 09:28; Start 06/19/21 at 09:00 Apixaban (Eliquis) 5 mg BID PO Last administered on 06/19/21 09:28; Start 06/18/21 at 21:00 Aspirin (Ecotrin) 81 mg DAILY PO Last administered on 06/19/21 09:28; Start 06/19/21 at 09:00 Atorvastatin Calcium (Lipitor) 20 mg QHS PO Last administered on 06/18/21 21:05; Start 06/18/21 at 21:00 Cefdinir (Omnicef) 300 mg BID PO Last administered on 06/19/21 09:28; Start 06/18/21 at 21:00 Furosemide (Lasix) 40 mg DAILY PO Last administered on 06/19/21 09:28; Start 06/19/21 at 09:00 Lactobacillus Rhamnosus (Culturelle) 1 cap BID PO Last administered on 06/19/21 09:29; Start 06/18/21 at 21:00 Latanoprost (Xalatan) 1 drop QHS OU Last administered on 06/18/21 21:05; Start 06/18/21 at 21:00 Metoprolol Tartrate (Lopressor) 25 mg BID PO Last administered on 06/19/21 09:29; Start 06/18/21 at 21:00 Zolpidem Tartrate (Ambien) 5 mg PRN QHS PRN PO INSOMNIA; Start 06/18/21 at 17:30 Brimonidine Tartrate (Alphagan) 1 drop BID OU Last administered on 06/19/21 13:58; Start 06/19/21 at 13:00 Timolol Maleate (Timoptic 0.5% [facility]) 1 drop BID OU Last administered on 06/19/21 13:57; Start 06/19/21 at 13:00 Active Scripts Active Furosemide 40 Mg Tablet 40 Mg PO [id number] 30 Days Cefdinir 300 Mg Capsule 300 Mg PO BID 5 Days Atorvastatin Calcium 20 Mg Tablet 20 Mg PO QHS Reported Tylenol (Acetaminophen) 325 Mg Tablet 650 Mg PO PRN Q6HRS PRN Culturelle (Lactobacillus Rhamnosus Gg) 1 Each Cap.sprink 1 Each PO BID Senna-Docusate Sodium Tablet (Sennosides/Docusate Sodium) 1 Each Tablet 1 Tab PO BID 20 Days Ambien (Zolpidem Tartrate) 5 Mg Tablet 5 Mg PO PRN QHS PRN Eliquis (Apixaban) 5 Mg Tablet 5 Mg PO BID Furosemide 40 Mg Tablet 40 Mg PO DAILY Amiodarone Hcl 200 Mg Tablet 200 Mg PO DAILY Metoprolol Tartrate 25 Mg Tablet 25 Mg PO BID Aspirin Ec (Aspirin) 81 Mg Tablet.dr 1 Tab PO DAILY Combigan Eye Drops (Brimonidine Tartrate/Timolol) 5 Ml Drops 5 Ml OP BID Latanoprost 2.5 Ml Drops 1 Drop EACHEYE QHS Allergies Allergies: Coded Allergies: No Known Drug Allergies (Unverified , 03/22/21) ROS General: YES: Fatigue Respiratory: YES: SOB with excertion Cardiovascular: yes Chest Pain Physical Exam General: mild distress HEENT: Atraumatic Lungs: Other (Mildly decreased breath sounds) Heart: Regular rate Abdomen: Normal bowel sounds Vitals VITALS Vital Signs Date Time Temp Pulse Resp B/P (MAP) Pulse Ox O2 Delivery O2 Flow Rate FiO2 06/19/21 15:00 98.6 65 18 106/57 (73) 96 Room Air 98.6 Labs Labs Laboratory Tests Test 06/18/21 12:35 06/19/21 04:00 White Blood Count 11.6 x10^3/uL (4.0-11.0) Red Blood Count 5.07 x10^6/uL (4.30-5.70) Hemoglobin 14.8 g/dL (13.0-17.5) Hematocrit 43.6 % (39.0-53.0) Mean Corpuscular Volume 86 fL (79-100) Mean Corpuscular Hemoglobin 29 pg (25-35) Mean Corpuscular Hemoglobin Concent 34 g/dL (31-37) Red Cell Distribution Width 17.1 % (11.5-14.5) Platelet Count 334 x10^3/uL (140-400) Neutrophils (%) (Auto) 79 % (31-73) Lymphocytes (%) (Auto) 12 % (24-48) Monocytes (%) (Auto) 7 % (0-9) Eosinophils (%) (Auto) 1 % (0-3) Basophils (%) (Auto) 1 % (0-3) Neutrophils # (Auto) 9.2 x10^3/uL (1.8-7.7) Lymphocytes # (Auto) 1.4 x10^3/uL (1.0-4.8) Monocytes # (Auto) 0.8 x10^3/uL (0.0-1.1) Eosinophils # (Auto) 0.1 x10^3/uL (0.0-0.7) Basophils # (Auto) 0.1 x10^3/uL (0.0-0.2) Sodium Level 139 mmol/L (136-145) Potassium Level 4.1 mmol/L (3.5-5.1) Chloride Level 101 mmol/L (98-107) Carbon Dioxide Level 25 mmol/L (21-32) Anion Gap 13 (6-14) Blood Urea Nitrogen 35 mg/dL (8-26) Creatinine 2.5 mg/dL (0.7-1.3) Estimated GFR (Cockcroft-Gault) 25.5 BUN/Creatinine Ratio 14 (6-20) Glucose Level 135 mg/dL (70-99) Calcium Level 8.8 mg/dL (8.5-10.1) Magnesium Level 2.1 mg/dL (1.8-2.4) Total Bilirubin 0.3 mg/dL (0.2-1.0) Aspartate Amino Transf (AST/SGOT) 30 U/L (15-37) Alanine Aminotransferase (ALT/SGPT) 49 U/L (16-63) Alkaline Phosphatase 107 U/L (46-116) Creatine Kinase 46 U/L (39-308) Troponin I High Sensitivity 13 ng/L (4-75) 20 ng/L (4-75) MB-[id number]-H-Type Natriuretic Peptide 986 pg/mL (0-124) Total Protein 7.8 g/dL (6.4-8.2) Albumin 2.9 g/dL (3.4-5.0) Albumin/Globulin Ratio 0.6 (1.0-1.7) Lipase 202 U/L (73-393) Laboratory Tests Test 06/19/21 04:00 Troponin I High Sensitivity 20 ng/L (4-75) Images Images Chest x-ray with bilateral pulmonary reticulations and a possible small right pleural effusion. Assessment/Plan Assessment/Plan 1. Chest pain. Patient is EKG shows a V paced rhythm. Troponins have been normal at 13 and 20. The patient's pain has resolved. We will complete rule out protocol and continue medical treatment. 2. Mild heart failure versus pneumonia. Continue present treatments and monitoring. We will check echocardiogram for LV function. 3. Permanent pacemaker/history of atrial fibrillation. We will attempt to obtain old records. 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 4. Chronic kidney disease. Monitoring lab. 5. Probable vascular disease. Continue present medications and monitor. 6. Social service evaluation for the patient's home situation. KRISTEL BALDERRAMA MD Jun 19, 2021 15:38
--- NOTE | 2021-06-19 17:22 | PDOC ---
[employer] PROGRESS NOTE Date of Service DOS: DATE: 06/19/21 TIME: 17:20 Chief Complaint Chief Complaint Chest pain, angina, stable known coronary artery disease chronic renal failure Leg pain, acute on chronic, he says he cant walk, needs PT and OT History of Present Illness History of Present Illness Pt and ot renal following cont other Vitals/I&O Vitals/I&O: Vital Signs Date Time Temp Pulse Resp B/P (MAP) Pulse Ox O2 Delivery O2 Flow Rate FiO2 06/19/21 15:00 98.6 65 18 106/57 (73) 96 Room Air 98.6 I & O 06/18/21 06/18/21 06/19/21 15:00 23:00 07:00 Intake Total 500 ml 300 ml 0 ml Output Total 400 ml Balance 500 ml 300 ml -400 ml Physical Exam General: Alert, Oriented X3, Cooperative, mild distress Heart: Regular rate Lungs: Clear Abdomen: Normal bowel sounds, No tenderness Skin: Other (thick growth on toes, lichenous with scale, ) Labs Labs: Laboratory Tests Test 06/19/21 04:00 Troponin I High Sensitivity 20 ng/L (4-75) Assessment and Plan Assessmemt and Plan Problems Medical Problems: (1) Acute renal failure Status: Acute (2) Chest pain Status: Acute (3) Hypotension Status: Acute (4) Unable to care for self Status: Acute Comment Review of Relevant I have reviewed the following items marlene (where applicable) has been applied. Medications: Current Medications Medications (Trade) Dose Ordered Sig/Placido Route PRN Reason Start Time Stop Time Status Last Admin Dose Admin Amiodarone HCl (Cordarone) 200 mg DAILY PO 06/19/21 09:00 06/19/21 09:28 Apixaban (Eliquis) 5 mg BID PO 06/18/21 21:00 06/19/21 09:28 Aspirin (Ecotrin) 81 mg DAILY PO 06/19/21 09:00 06/19/21 09:28 Atorvastatin Calcium (Lipitor) 20 mg QHS PO 06/18/21 21:00 06/18/21 21:05 Cefdinir (Omnicef) 300 mg BID PO 06/18/21 21:00 06/19/21 09:28 Furosemide (Lasix) 40 mg DAILY PO 06/19/21 09:00 06/19/21 09:28 Lactobacillus Rhamnosus (Culturelle) 1 cap BID PO 06/18/21 21:00 06/19/21 09:29 Latanoprost (Xalatan) 1 drop QHS OU 06/18/21 21:00 06/18/21 21:05 Metoprolol Tartrate (Lopressor) 25 mg BID PO 06/18/21 21:00 06/19/21 09:29 Brimonidine Tartrate (Alphagan) 1 drop BID OU 06/19/21 13:00 06/19/21 13:58 Timolol Maleate (Timoptic 0.5% Ophth) 1 drop BID OU 06/19/21 13:00 06/19/21 13:57 Justifications for Admission Other Justification LIANET MENON MD Jun 19, 2021 17:22
[2021-06-19 19:00] VITALS: BP 114/58
--- NOTE | 2021-06-19 19:40 | NUR ---
pT IN BED ASSESSMENT COMPLETED VSS POC EXPLAINED PT DENIED PAIN AT THIS TIME WILL RESUME CARE AND CONTINUE TO MONITOR PT. CALL LIGHT IN REACH BED ALARM IS SET.
--- NOTE | 2021-06-19 20:18 | CONS ---
DATE OF CONSULTATION: 06/19/2021 NEPHROLOGY CONSULTATION REQUESTING PHYSICIAN: Hospitalist. REASON FOR CONSULTATION: Renal failure. HISTORY OF PRESENT ILLNESS: This is a 70-year-old gentleman with history of coronary artery disease, peripheral vascular disease, "prostate surgery." He presents to the hospital with chest pain. He was found to have reduced level of GFR and increased level of serum creatinine and as such, Nephrology evaluation requested. No known history of renal disease can be ascertained. The patient has poor attention to details. PAST MEDICAL HISTORY: Coronary artery disease, peripheral vascular disease, "prostate surgery". Atrial fibrillation, glaucoma, blindness in the right eye, lymphedema, pacemaker placement. ALLERGIES: None. MEDICATIONS: Reviewed per medication list. FAMILY HISTORY: Diabetes mellitus, otherwise noncontributory. SOCIAL HISTORY: The patient is a previous smoker, discontinued smoking. Does not use recreational drugs or drink. He resides at his home with the brother. REVIEW OF SYSTEMS: Other than chest pain and chronic lymphedema, further review of systems is unremarkable. PHYSICAL EXAMINATION: GENERAL APPEARANCE: The patient is weak, has poor attention to details, is flat, dysphoric. HEENT: Clear. NECK: No increased JVD. LUNGS: Clear, but decreased breath sound at bases. CARDIAC: Without S3 or rub. ABDOMEN: Soft and nontender. EXTREMITIES: Bilateral lower extremity edema 3+. NEUROLOGIC: Nonfocal, localized. PSYCHIATRIC: Depressed, flat. LABORATORY DATA: Sodium 139, potassium 4.1, chloride 101, CO2 of 25, BUN 35, creatinine 2.5, GFR is 25, magnesium 2.1. Hemoglobin 14.8, hematocrit 43.6, white count 11.6, platelets are 334. IMPRESSION: 1. Renal failure, acute versus chronic. Anticipate likely chronic in the setting of diffuse vascular disease. 2. Chronic lymphedema of lower extremities. 3. Chest pain. RECOMMENDATIONS: 1. Chest pain evaluation per Cardiology. 2. Renal ultrasound. 3. We will trend labs and follow with you. LISA DR: Herlinda TID: [id number]
[2021-06-19] MEDS: ATORVASTATIN CALCIUM 20 MG TABLET PO SCH (20:37)
[2021-06-19] MEDS: LATANOPROST 0.005% OPHTH SOLUTION 2.5ML BOTTLE. OU SCH (20:38)
[2021-06-19 23:00] VITALS: BP 112/56
[2021-06-19 23:13] LABS: BILIRUBIN,URINE NEGATIVE (NEG); CLARITY,URINE CLEAR; COLOR,URINE YELLOW; NITRITE,URINE NEGATIVE (NEG); PROTEIN,URINE NEGATIVE (NEG-TRACE); UROBILINOGEN,URINE 0.2 mg/dL (0.2 mg/dL)
[2021-06-19 23:20] LABS: AMPHETAMINE/METHAMPHETAMINE NEG (NEG); BARBITURATES NEG (NEG); BENZODIAZEPINES NEG (NEG); CANNABINOIDS NEG (NEG); COCAINE NEG (NEG); METHADONE NEG (NEG); OPIATES NEG (NEG); PHENCYCLIDINE NEG (NEG)
[2021-06-19 23:29] LABS: BACTERIA,URINE 0 /HPF (0-FEW); RBC,URINE OCC /HPF (0-2)
[2021-06-19 23:30] LABS: HYALINE CASTS, URINE FEW /HPF
[2021-06-20 02:58] VITALS: BP 115/65
[2021-06-20 07:06] LABS: ALBUMIN 2.3 g/dL (3.4-5.0); ALBUMIN/GLOBULIN RATIO 0.6 (1.0-1.7); CREATININE 1.8 mg/dL (0.7-1.3); GFR 37.3; POTASSIUM 4.4 mmol/L (3.5-5.1); TOTAL BILIRUBIN 0.3 mg/dL (0.2-1.0); TOTAL PROTEIN 6.3 g/dL (6.4-8.2)
[2021-06-20 07:41] VITALS: BP 124/65
[2021-06-20] MEDS: APIXABAN 5 MG TABLET. PO SCH ×2 (09:00→23:07)
[2021-06-20] MEDS: AMMONIUM LACTATE 12% TOPICAL LOTION 225GM BOTTLE. TP SCH ×2 (10:00→21:00)
[2021-06-20 10:25] VITALS: BP 129/72
[2021-06-20] MEDS: BRIMONIDINE 0.2% OPHTH SOLUTION 5ML BOTTLE. OU SCH ×2 (10:30→23:04)
[2021-06-20] MEDS: LACTOBACILLUS RHAMNOSUS GG 1 CAPSULE. PO SCH ×2 (10:30→23:07)
[2021-06-20] MEDS: CEFDINIR 300 MG CAPSULE PO SCH ×2 (10:30→23:08)
[2021-06-20] MEDS: ASPIRIN ENTERIC COATED 81 MG TABLET.DR. PO SCH (10:30)
[2021-06-20] MEDS: TIMOLOL 0.5% OPHTH SOLUTION 5ML BOTTLE. OU SCH ×2 (10:30→23:05)
[2021-06-20] MEDS: AMIODARONE HCL 200 MG TABLET. PO SCH (10:31)
[2021-06-20] MEDS: FUROSEMIDE 40 MG TABLET. PO SCH (10:31)
[2021-06-20] MEDS: METOPROLOL TART IMMED RELEASE 25 MG TABLET. PO SCH ×2 (10:31→23:08)
--- NOTE | 2021-06-20 11:59 | PDOC ---
DATE OF SERVICE DATE: 06/20/21 TIME: 11:59 SUBJECTIVE ROS Denies SOB, No N/V. States feeling weak OBJECTIVE Vital Signs Vital Signs Date Time Temp Pulse Resp B/P (MAP) Pulse Ox O2 Delivery O2 Flow Rate FiO2 06/20/21 10:31 64 129/72 06/20/21 10:25 98.0 18 98 Room Air 98.0 I & 0 Intake and Output 06/20/21 07:00 Intake Total 718 ml Output Total 1751 ml Balance -1033 ml Intake Oral 718 ml Output Urine Total 1750 ml Stool Total 1 ml PHYSICAL EXAM Physical Exam GENERAL:NAD NECK: Supple, no JVD, no thyromegaly was noted. LUNGS: decreased breath sounds at bases HEART: RRR, S1, S2 present. ABDOMEN: Soft, nontender. Positive bowel sounds EXTREMITIES: LE Lymphedema NEUROLOGIC:Grossly normal SKIN: severe hyperkeratotic lesions on the lower extremities. No rebollar, No CVA or SP tenderness DIAGNOSIS/ASSESSMENT Assessment & Plan ANTWAN- Creatinine trending down 2.5-->1.8;Renal US Sonographically unremarkable kidneys,. Maintain fluid balance, supportive care, Avoid Nephrotoxins CKD stage 3 B- Baseline Cr 1.6-1.8 coronary artery disease- stable Leg Pain - per primary COMMENT/RELEVANT DATA Meds Current Medications Medications (Trade) Dose Ordered Sig/Placido Start Time Stop Time Status Last Admin Dose Admin Acetaminophen (Tylenol) 650 mg PRN Q6HRS PRN 06/18/21 17:30 Amiodarone HCl (Cordarone) 200 mg DAILY 06/19/21 09:00 06/20/21 10:31 200 MG Apixaban (Eliquis) 5 mg BID 06/18/21 21:00 06/19/21 20:37 5 MG Aspirin (Ecotrin) 81 mg DAILY 06/19/21 09:00 06/20/21 10:30 81 MG Atorvastatin Calcium (Lipitor) 20 mg QHS 06/18/21 21:00 06/19/21 20:37 20 MG Brimonidine Tartrate (Alphagan) 1 drop BID 06/19/21 13:00 06/20/21 10:30 1 DROP Cefdinir (Omnicef) 300 mg BID 06/18/21 21:00 06/20/21 10:30 300 MG Furosemide (Lasix) 40 mg DAILY 06/19/21 09:00 06/20/21 10:31 40 MG Lactic Acid (Lac-Hydrin) 1 phyllis BID 06/20/21 10:00 Lactobacillus Rhamnosus (Culturelle) 1 cap BID 06/18/21 21:00 06/20/21 10:30 1 CAP Latanoprost (Xalatan) 1 drop QHS 06/18/21 21:00 06/19/21 20:38 1 DROP Metoprolol Tartrate (Lopressor) 25 mg BID 06/18/21 21:00 06/20/21 10:31 25 MG Nitroglycerin (Nitrostat) 0.4 mg PRN Q5MIN PRN 06/18/21 12:15 Oxycodone/ Acetaminophen (Percocet 5/325) 1 tab PRN Q4HRS PRN 06/19/21 17:30 Sodium Chloride 500 ml @ 500 mls/hr 1X ONCE 06/18/21 13:30 06/18/21 14:29 DC Timolol Maleate (Timoptic 0.5% Ophth) 1 drop BID 06/19/21 13:00 06/20/21 10:30 1 DROP Zolpidem Tartrate (Ambien) 5 mg PRN QHS PRN 06/18/21 17:30 Lab Laboratory Tests Test 06/19/21 23:00 06/20/21 04:10 Urine Collection Type Unknown Urine Color Yellow Urine Clarity Clear Urine pH 6.0 (<5.0-8.0) Urine Specific [place] 1.010 (1.000-1.030) Urine Protein Negative mg/dL (NEG-TRACE) Urine Glucose (UA) Negative mg/dL (NEG) Urine Ketones (Stick) Negative mg/dL (NEG) Urine Blood Negative (NEG) Urine Nitrite Negative (NEG) Urine Bilirubin Negative (NEG) Urine Urobilinogen Dipstick 0.2 mg/dL (0.2 mg/dL) Urine Leukocyte Esterase Small (NEG) Urine RBC Occ /HPF (0-2) Urine WBC 5-10 /HPF (0-4) Urine Squamous Epithelial Cells Occ /LPF Urine Bacteria 0 /HPF (0-FEW) Urine Hyaline Casts Few /HPF Urine Mucus Slight /LPF Urine Opiates Screen Neg (NEG) Urine Methadone Screen Neg (NEG) Urine Barbiturates Neg (NEG) Urine Phencyclidine Screen Neg (NEG) Urine Amphetamine/Methamphetamine Neg (NEG) Urine Benzodiazepines Screen Neg (NEG) Urine Cocaine Screen Neg (NEG) Urine Cannabinoids Screen Neg (NEG) Urine Ethyl Alcohol Neg (NEG) Sodium Level 144 mmol/L (136-145) Potassium Level 4.4 mmol/L (3.5-5.1) Chloride Level 107 mmol/L (98-107) Carbon Dioxide Level 29 mmol/L (21-32) Anion Gap 8 (6-14) Blood Urea Nitrogen 31 mg/dL (8-26) Creatinine 1.8 mg/dL (0.7-1.3) Estimated GFR (Cockcroft-Gault) 37.3 BUN/Creatinine Ratio 17 (6-20) Glucose Level 78 mg/dL (70-99) Calcium Level 8.0 mg/dL (8.5-10.1) Total Bilirubin 0.3 mg/dL (0.2-1.0) Aspartate Amino Transf (AST/SGOT) 33 U/L (15-37) Alanine Aminotransferase (ALT/SGPT) 46 U/L (16-63) Alkaline Phosphatase 106 U/L (46-116) Total Protein 6.3 g/dL (6.4-8.2) Albumin 2.3 g/dL (3.4-5.0) Albumin/Globulin Ratio 0.6 (1.0-1.7) Results All relevant outside records, renal labs, imaging studies, telemetry/EKG's were reviewed. Justicifation of Admission Dx: Justifications for Admission: Justification of Admission Dx: FREDI Carr MD Jun 20, 2021 11:59
[2021-06-20 15:15] VITALS: BP 118/68
--- NOTE | 2021-06-20 15:30 | NUR ---
SS following for discharge planning. SS reviewed pt chart and discussed with pt RN. Pt is from home and is currently on room air. Nephrology and Cardiology following. Pt recently discharged to home at the end of last week. LTC placement recommended. Pt has Medicaid. SS met with pt to discuss discharge planning. Pt now agreeable to LTC placement. Pt was recently at [facility]. SS contacted [facility] and was informed that they are currently on a bed hold at this time and cannot accept as of now. Referral sent to [facility], ; fax [phone]. Elzbieta from [facility] to visit with pt in the morning. SS will continue to follow for discharge planning.
--- NOTE | 2021-06-20 15:35 | PDOC ---
[employer] PROGRESS NOTE Date of Service DOS: DATE: 06/20/21 TIME: 15:33 Chief Complaint Chief Complaint Chest pain, angina, stable known coronary artery disease acute on chronic renal failure Leg pain, acute on chronic, he says he cant walk, needs PT and OT History of Present Illness History of Present Illness Mr Ralph is a 70yo male with PMHx CAD< PVD, afib, poor self care admitted for w orsening renal failure, left SNF AMA. Came to ED c/o chest pain, unable to walk. 06/19: Pt and ot. renal following. cont other 06/20: Cr improved to 1.8. Still very weak. No chest pain currently. Notably with gluteal bilateral foot wounds. Vitals/I&O Vitals/I&O: Vital Signs Date Time Temp Pulse Resp B/P (MAP) Pulse Ox O2 Delivery O2 Flow Rate FiO2 06/20/21 15:15 97.9 73 16 118/68 (85) 97 Room Air 97.9 I & O 06/19/21 06/19/21 06/20/21 15:00 23:00 07:00 Intake Total 318 ml 300 ml 100 ml Output Total 800 ml 401 ml 550 ml Balance -482 ml -101 ml -450 ml Physical Exam General: Alert, Oriented X3, Cooperative, mild distress Heart: Regular rate Lungs: Clear Abdomen: Normal bowel sounds, No tenderness Skin: Other (thick growth on toes, lichenous with scale, ) Labs Labs: Laboratory Tests Test 06/19/21 23:00 06/20/21 04:10 Urine Collection Type Unknown Urine Color Yellow Urine Clarity Clear Urine pH 6.0 (<5.0-8.0) Urine Specific [place] 1.010 (1.000-1.030) Urine Protein Negative mg/dL (NEG-TRACE) Urine Glucose (UA) Negative mg/dL (NEG) Urine Ketones (Stick) Negative mg/dL (NEG) Urine Blood Negative (NEG) Urine Nitrite Negative (NEG) Urine Bilirubin Negative (NEG) Urine Urobilinogen Dipstick 0.2 mg/dL (0.2 mg/dL) Urine Leukocyte Esterase Small (NEG) Urine RBC Occ /HPF (0-2) Urine WBC 5-10 /HPF (0-4) Urine Squamous Epithelial Cells Occ /LPF Urine Bacteria 0 /HPF (0-FEW) Urine Hyaline Casts Few /HPF Urine Mucus Slight /LPF Urine Opiates Screen Neg (NEG) Urine Methadone Screen Neg (NEG) Urine Barbiturates Neg (NEG) Urine Phencyclidine Screen Neg (NEG) Urine Amphetamine/Methamphetamine Neg (NEG) Urine Benzodiazepines Screen Neg (NEG) Urine Cocaine Screen Neg (NEG) Urine Cannabinoids Screen Neg (NEG) Urine Ethyl Alcohol Neg (NEG) Sodium Level 144 mmol/L (136-145) Potassium Level 4.4 mmol/L (3.5-5.1) Chloride Level 107 mmol/L (98-107) Carbon Dioxide Level 29 mmol/L (21-32) Anion Gap 8 (6-14) Blood Urea Nitrogen 31 mg/dL (8-26) Creatinine 1.8 mg/dL (0.7-1.3) Estimated GFR (Cockcroft-Gault) 37.3 BUN/Creatinine Ratio 17 (6-20) Glucose Level 78 mg/dL (70-99) Calcium Level 8.0 mg/dL (8.5-10.1) Total Bilirubin 0.3 mg/dL (0.2-1.0) Aspartate Amino Transf (AST/SGOT) 33 U/L (15-37) Alanine Aminotransferase (ALT/SGPT) 46 U/L (16-63) Alkaline Phosphatase 106 U/L (46-116) Total Protein 6.3 g/dL (6.4-8.2) Albumin 2.3 g/dL (3.4-5.0) Albumin/Globulin Ratio 0.6 (1.0-1.7) Assessment and Plan Assessmemt and Plan Problems Medical Problems: (1) Acute renal failure Status: Acute (2) Chest pain Status: Acute (3) Hypotension Status: Acute (4) Unable to care for self Status: Acute Comment Review of Relevant I have reviewed the following items marlene (where applicable) has been applied. Medications: Current Medications Medications (Trade) Dose Ordered Sig/Placido Route PRN Reason Start Time Stop Time Status Last Admin Dose Admin Lactic Acid (Lac-Hydrin) 1 phyllis BID TP 06/20/21 10:00 06/20/21 10:00 Justifications for Admission Other Justification VIRGINIE NEGRO MD Jun 20, 2021 15:35
--- NOTE | 2021-06-20 18:01 | EKG ---
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
[2021-06-20 19:00] VITALS: BP 117/59
[2021-06-20 22:28] VITALS: BP 100/59
[2021-06-20] MEDS: LATANOPROST 0.005% OPHTH SOLUTION 2.5ML BOTTLE. OU SCH (23:04)
[2021-06-20] MEDS: ATORVASTATIN CALCIUM 20 MG TABLET PO SCH (23:07)
[2021-06-21 02:24] VITALS: BP 115/62
[2021-06-21 06:15] LABS: CALCIUM 8.2 mg/dL (8.5-10.1); CREATININE 1.7 mg/dL (0.7-1.3); GFR 39.8
[2021-06-21 07:00] VITALS: BP 116/64
[2021-06-21] MEDS: AMMONIUM LACTATE 12% TOPICAL LOTION 225GM BOTTLE. TP SCH ×2 (09:00→21:00)
[2021-06-21] MEDS: LACTOBACILLUS RHAMNOSUS GG 1 CAPSULE. PO SCH (10:25)
[2021-06-21] MEDS: APIXABAN 5 MG TABLET. PO SCH (10:25)
[2021-06-21] MEDS: ASPIRIN ENTERIC COATED 81 MG TABLET.DR. PO SCH (10:25)
[2021-06-21] MEDS: CEFDINIR 300 MG CAPSULE PO SCH (10:25)
[2021-06-21] MEDS: AMIODARONE HCL 200 MG TABLET. PO SCH (10:26)
[2021-06-21] MEDS: METOPROLOL TART IMMED RELEASE 25 MG TABLET. PO SCH (10:26)
[2021-06-21] MEDS: FUROSEMIDE 40 MG TABLET. PO SCH (10:27)
[2021-06-21] MEDS: TIMOLOL 0.5% OPHTH SOLUTION 5ML BOTTLE. OU SCH ×2 (10:27→21:00)
[2021-06-21] MEDS: BRIMONIDINE 0.2% OPHTH SOLUTION 5ML BOTTLE. OU SCH ×2 (10:27→21:00)
[2021-06-21 11:00] VITALS: BP 117/56
--- NOTE | 2021-06-21 11:04 | PDOC ---
DORIS CHRISTIAN PAINTER AND DECORATOR 06/21/21 1104: CARDIO Progress Notes Date and Time Date of Service 06/21/21 Time of Evaluation 1040 Subjective Subjective: No Chest Pain, No shortness of breath, No Palpitations, No Dizziness, Other (toes feel tight) Vitals Vitals Vital Signs Date Time Temp Pulse Resp B/P (MAP) Pulse Ox O2 Delivery O2 Flow Rate FiO2 06/21/21 10:26 71 116/64 06/21/21 08:00 Room Air 06/21/21 07:00 98.0 18 93 98.0 Weight Weight [ ] Input and Output Intake and Output Intake and Output 06/21/21 06:59 Intake Total 1760 ml Output Total 1600 ml Balance 160 ml Intake Oral 1760 ml Output Urine Total 1600 ml # Bowel Movements 2 Laboratory Labs Laboratory Tests Test 06/21/21 04:40 Sodium Level 141 mmol/L (136-145) Potassium Level 4.0 mmol/L (3.5-5.1) Chloride Level 104 mmol/L (98-107) Carbon Dioxide Level 27 mmol/L (21-32) Anion Gap 10 (6-14) Blood Urea Nitrogen 30 mg/dL (8-26) Creatinine 1.7 mg/dL (0.7-1.3) Estimated GFR (Cockcroft-Gault) 39.8 Glucose Level 81 mg/dL (70-99) Calcium Level 8.2 mg/dL (8.5-10.1) Physical Exam HEENT: Neck Supple W Full Motion Chest: Symmetric LUNGS: Clear to Auscultation Heart: RRR Abdomen: Soft N/T Extremities: Other (1+ bilateral LE edema. Toes with dry, scaly patches) Neurology: alert, oriented, follow commands Assessment Assessment 1. Chest pain, atypical. AMI ruled out. 2. Mild acute on chronic diastolic CHF; Echo 06/24 with preserved LV systolic function. appears compensated 3. ANTWAN on CKD; Cr improved 4. CAD: moderate, one-vessel disease per cath 2017 5. PPM in situ: (Biotronik). Recent device check with normal function. AFIB burden is 0. normal device. 7 yrs battery per interrogation. No significant arrhythmia. 6. PAFIB: SR 7. HTN: controlled 8. HLP: statin 9. PAD with chronic lymphedema: LE wounds 10. Hypothyroidism: recent TSH 17 11. FTT Recommendations Lasix therapy Continue metoprolol for rate control and amiodarone for rhythm maintenance Eliquis for stroke prophylaxis. Secondary prevention SS following; poor self care, brother unable to assist and lack of utilities Supportive care Consider outpatient ischemic evaluation Justicifation of Admission Dx: Justifications for Admission: Justification of Admission Dx: No MATY DIAZ MD 06/22/21 1841: CARDIO Progress Notes Plan Plan Late entry for 06/21/2021 Patient seen and examined. Agree with above nurse practitioner note. Await placement. DORIS CHRISTIAN APRN Jun 21, 2021 11:04 MATY DIAZ MD Jun 22, 2021 18:41
--- NOTE | 2021-06-21 13:01 | PDOC ---
DATE OF SERVICE DATE: 06/21/21 TIME: 13:01 SUBJECTIVE ROS Denies SOB, No N/V. States feeling better. Brother at bedside OBJECTIVE Vital Signs Vital Signs Date Time Temp Pulse Resp B/P (MAP) Pulse Ox O2 Delivery O2 Flow Rate FiO2 06/21/21 11:00 97.9 61 18 117/56 (76) 95 Room Air 97.9 I & 0 Intake and Output 06/21/21 07:00 Intake Total 1760 ml Output Total 1600 ml Balance 160 ml Intake Oral 1760 ml Output Urine Total 1600 ml # Bowel Movements 2 PHYSICAL EXAM Physical Exam GENERAL:NAD NECK: Supple, no JVD, no thyromegaly was noted. LUNGS: decreased breath sounds at bases HEART: RRR, S1, S2 present. ABDOMEN: Soft, nontender. Positive bowel sounds EXTREMITIES: LE Lymphedema NEUROLOGIC:Grossly normal SKIN: severe hyperkeratotic lesions on the lower extremities. No rebollar, No CVA or SP tenderness DIAGNOSIS/ASSESSMENT Assessment & Plan ANTWAN- Creatinine trending down 2.5-->1.7;Renal US Sonographically unremarkable kidneys,. Maintain fluid balance, supportive care, Avoid Nephrotoxins . Advised to follow with us after DC(Routine ) CKD stage 3 B- Baseline Cr 1.6-1.8 coronary artery disease- stable Leg Pain - per primary Discussed with pt and brother extensively COMMENT/RELEVANT DATA Meds Current Medications Medications (Trade) Dose Ordered Sig/Placido Start Time Stop Time Status Last Admin Dose Admin Acetaminophen (Tylenol) 650 mg PRN Q6HRS PRN 06/18/21 17:30 Amiodarone HCl (Cordarone) 200 mg DAILY 06/19/21 09:00 06/21/21 10:26 200 MG Apixaban (Eliquis) 5 mg BID 06/18/21 21:00 06/21/21 10:25 5 MG Aspirin (Ecotrin) 81 mg DAILY 06/19/21 09:00 06/21/21 10:25 81 MG Atorvastatin Calcium (Lipitor) 20 mg QHS 06/18/21 21:00 06/20/21 23:07 20 MG Brimonidine Tartrate (Alphagan) 1 drop BID 06/19/21 13:00 06/21/21 10:27 1 DROP Cefdinir (Omnicef) 300 mg BID 06/18/21 21:00 06/21/21 10:25 300 MG Furosemide (Lasix) 40 mg DAILY 06/19/21 09:00 06/21/21 10:27 40 MG Lactic Acid (Lac-Hydrin) 1 phyllis BID 06/20/21 10:00 06/21/21 09:00 1 PHYLLIS Lactobacillus Rhamnosus (Culturelle) 1 cap BID 06/18/21 21:00 06/21/21 10:25 1 CAP Latanoprost (Xalatan) 1 drop QHS 06/18/21 21:00 06/20/21 23:04 1 DROP Metoprolol Tartrate (Lopressor) 25 mg BID 06/18/21 21:00 06/21/21 10:26 25 MG Nitroglycerin (Nitrostat) 0.4 mg PRN Q5MIN PRN 06/18/21 12:15 Oxycodone/ Acetaminophen (Percocet 5/325) 1 tab PRN Q4HRS PRN 06/19/21 17:30 Sodium Chloride 500 ml @ 500 mls/hr 1X ONCE 06/18/21 13:30 06/18/21 14:29 DC Timolol Maleate (Timoptic 0.5% Ophth) 1 drop BID 06/19/21 13:00 06/21/21 10:27 1 DROP Zolpidem Tartrate (Ambien) 5 mg PRN QHS PRN 06/18/21 17:30 Lab Laboratory Tests Test 06/21/21 04:40 Sodium Level 141 mmol/L (136-145) Potassium Level 4.0 mmol/L (3.5-5.1) Chloride Level 104 mmol/L (98-107) Carbon Dioxide Level 27 mmol/L (21-32) Anion Gap 10 (6-14) Blood Urea Nitrogen 30 mg/dL (8-26) Creatinine 1.7 mg/dL (0.7-1.3) Estimated GFR (Cockcroft-Gault) 39.8 Glucose Level 81 mg/dL (70-99) Calcium Level 8.2 mg/dL (8.5-10.1) Results All relevant outside records, renal labs, imaging studies, telemetry/EKG's were reviewed. Justicifation of Admission Dx: Justifications for Admission: Justification of Admission Dx: FREDI Carr MD Jun 21, 2021 13:01
--- NOTE | 2021-06-21 13:11 | PDOC ---
[employer] PROGRESS NOTE Date of Service DOS: DATE: 06/21/21 TIME: 12:57 Chief Complaint Chief Complaint Chest pain, angina, stable Known coronary artery disease acute on chronic renal failure Leg pain, acute on chronic, he says he cant walk, needs PT and OT Chronic right fifth metatarsal nonhealing wound, Foot xray suggests osteomyelitis right 5th metatarsal bone,concern for adequate healing with exposed bone PAD Chronic right plantar ulcerations, Chronic lymphedema, chronic venous stasis, atrial fibrillation,status post PPM, CHF, hypertension, hyperlipidemia, osteoarthritis, History of glaucoma chest pain, elevated troponin poa, self-care deficit. 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 Came to ED c/o chest pain, unable to walk. 06/19: Pt and ot. renal following. cont other 06/20: Cr improved to 1.8. Still very weak. No chest pain currently. Notably with gluteal bilateral foot wounds. 06/21: Cr 1.7. Still feels weak. No chest pain currently. Getting foot wound and gluteal wound care. Vitals/I&O Vitals/I&O: Vital Signs Date Time Temp Pulse Resp B/P (MAP) Pulse Ox O2 Delivery O2 Flow Rate FiO2 06/21/21 11:00 97.9 61 18 117/56 (76) 95 Room Air 97.9 I & O 06/20/21 06/20/21 06/21/21 15:00 23:00 07:00 Intake Total 660 ml 900 ml 200 ml Output Total 600 ml 1000 ml Balance 60 ml -100 ml 200 ml Physical Exam General: Alert, Oriented X3, Cooperative, mild distress Heart: Regular rate Lungs: Clear Abdomen: Normal bowel sounds, No tenderness Skin: Other (thick growth on toes, lichenous with scale, ) Labs Labs: Laboratory Tests Test 06/21/21 04:40 Sodium Level 141 mmol/L (136-145) Potassium Level 4.0 mmol/L (3.5-5.1) Chloride Level 104 mmol/L (98-107) Carbon Dioxide Level 27 mmol/L (21-32) Anion Gap 10 (6-14) Blood Urea Nitrogen 30 mg/dL (8-26) Creatinine 1.7 mg/dL (0.7-1.3) Estimated GFR (Cockcroft-Gault) 39.8 Glucose Level 81 mg/dL (70-99) Calcium Level 8.2 mg/dL (8.5-10.1) Assessment and Plan Assessmemt and Plan Problems Medical Problems: (1) Acute renal failure Status: Acute (2) Chest pain Status: Acute (3) Hypotension Status: Acute (4) Unable to care for self Status: Acute Comment Review of Relevant I have reviewed the following items marlene (where applicable) has been applied. Justifications for Admission Other Justification VIRGINIE NEGRO MD Jun 21, 2021 13:11
--- NOTE | 2021-06-21 14:31 | NUR ---
SS following up with discharge planning. SS reviewed pt chart and discussed with pt RN. Pt is currently on room air. COVID19 test requested for placement. PT/OT recommended intermediate unit. Pt has Medicaid and is agreeable to LTC placement. Pt accepted for LTC placement at [facility], ; fax [phone]. SS met with pt and pt agreeable to go to [facility]. Probable discharge to [facility] tomorrow pending COVID19 test result. SS will continue to follow for discharge planning.
[2021-06-21 15:00] VITALS: BP 109/61
[2021-06-21 19:23] VITALS: BP 98/53
[2021-06-21] MEDS: LATANOPROST 0.005% OPHTH SOLUTION 2.5ML BOTTLE. OU SCH (21:00)
[2021-06-21 22:45] VITALS: BP 110/55
[2021-06-22] MEDS: APIXABAN 5 MG TABLET. PO SCH ×3 (01:05→21:05)
[2021-06-22] MEDS: CEFDINIR 300 MG CAPSULE PO SCH ×2 (01:05→08:34)
[2021-06-22] MEDS: ATORVASTATIN CALCIUM 20 MG TABLET PO SCH ×2 (01:06→21:05)
[2021-06-22] MEDS: METOPROLOL TART IMMED RELEASE 25 MG TABLET. PO SCH ×3 (01:06→21:05)
[2021-06-22] MEDS: LACTOBACILLUS RHAMNOSUS GG 1 CAPSULE. PO SCH ×3 (01:06→21:05)
[2021-06-22 02:36] VITALS: BP 127/67
[2021-06-22 05:09] LABS: CALCIUM 7.8 mg/dL (8.5-10.1); CREATININE 1.8 mg/dL (0.7-1.3); GFR 37.3; POTASSIUM 4.1 mmol/L (3.5-5.1)
[2021-06-22 07:00] VITALS: BP 127/70
[2021-06-22] MEDS: TIMOLOL 0.5% OPHTH SOLUTION 5ML BOTTLE. OU SCH ×2 (08:33→21:06)
[2021-06-22] MEDS: BRIMONIDINE 0.2% OPHTH SOLUTION 5ML BOTTLE. OU SCH ×2 (08:33→21:06)
[2021-06-22] MEDS: ASPIRIN ENTERIC COATED 81 MG TABLET.DR. PO SCH (08:34)
[2021-06-22] MEDS: FUROSEMIDE 40 MG TABLET. PO SCH (08:34)
[2021-06-22] MEDS: AMIODARONE HCL 200 MG TABLET. PO SCH (08:34)
[2021-06-22] MEDS: AMMONIUM LACTATE 12% TOPICAL LOTION 225GM BOTTLE. TP SCH ×2 (08:35→21:06)
--- NOTE | 2021-06-22 09:40 | NUR ---
SS following up with discharge planning. SS reviewed pt chart and discussed with pt RN. Pt is currently on room air. COVID19 test pending for placement. Pt accepted at [facility], ; fax [phone], for LTC placement. Elzbieta at [facility] contacted SS today and reported that they had a staff member test positive for COVID19 and they need to get PCR test results on staff prior to being able to admit pt. Physician notified. Referrals phoned and faxed to [facility], ; fax [phone], [facility], ; fax [phone], and [facility], ; fax [phone]. SS will continue to follow for discharge planning. Addendum: 06/22/21 at 1235 by SANKET BENAVIDES Pt COVID19 test came back positive. Facilities now saying pt needs to be ten days post COVID19 for LTC placement. [facility] reported that they would accept pt after ten days post positive test. SS contacted [facility] and was notified that they cannot accept pt for LTC placement. PT/OT recommended acute rehabilitation. Referral phoned and faxed to [facility], ; fax [phone]. Per RN, pt is unsafe to return to home. Pt has no electricity, no water, and no heat. Pt is high risk readmission risk if returning to home.
--- NOTE | 2021-06-22 10:38 | PDOC ---
[employer] PROGRESS NOTE Date of Service DOS: DATE: 06/22/21 TIME: 10:37 Chief Complaint Chief Complaint Chest pain, angina, stable Pseudomonas UTI - low colony count, however in male likely prostate involvement, will need at least 10 days treatment with cipro Known coronary artery disease acute on chronic renal failure Leg pain, acute on chronic, he says he cant walk, needs PT and OT Chronic right fifth metatarsal nonhealing wound, Foot xray suggests osteomyelitis right 5th metatarsal bone,concern for adequate healing with exposed bone PAD Chronic right plantar ulcerations, Chronic lymphedema, chronic venous stasis, atrial fibrillation,status post PPM, CHF, hypertension, hyperlipidemia, osteoarthritis, History of glaucoma chest pain, elevated troponin poa, self-care deficit. 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 Came to ED c/o chest pain, unable to walk. 06/19: Pt and ot. renal following. cont other 06/20: Cr improved to 1.8. Still very weak. No chest pain currently. Notably with gluteal bilateral foot wounds. 06/21: Cr 1.7. Still feels weak. No chest pain currently. Getting foot wound and gluteal wound care. 06/22: Stable. Still weak. Feels little more foot pain today. Urine culture returned with Pseudomonas sensitive to ciprofloxacin. Started on Cipro today DC cefdinir for now. Patient has been accepted for long-term care but given needs for ciprofloxacin atrial fibrillation will need to be monitored on telemetry while receiving ciprofloxacin. Per his brother there is no water or gas or telephone service at their home. COVID-19 rapid came positive later in the day Vitals/I&O Vitals/I&O: Vital Signs Date Time Temp Pulse Resp B/P (MAP) Pulse Ox O2 Delivery O2 Flow Rate FiO2 06/22/21 08:34 64 127/67 06/22/21 07:35 Room Air 06/22/21 07:00 97.9 16 95 97.9 I & O 06/21/21 06/21/21 06/22/21 15:00 23:00 07:00 Intake Total 220 ml 360 ml 300 ml Output Total 300 ml 650 ml Balance -80 ml -290 ml 300 ml Physical Exam General: Alert, Oriented X3, Cooperative, mild distress Heart: Regular rate Lungs: Clear Abdomen: Normal bowel sounds, No tenderness Skin: Other (thick growth on toes, lichenous with scale, ) Labs Labs: Laboratory Tests Test 06/22/21 03:10 Sodium Level 141 mmol/L (136-145) Potassium Level 4.1 mmol/L (3.5-5.1) Chloride Level 104 mmol/L (98-107) Carbon Dioxide Level 28 mmol/L (21-32) Anion Gap 9 (6-14) Blood Urea Nitrogen 29 mg/dL (8-26) Creatinine 1.8 mg/dL (0.7-1.3) Estimated GFR (Cockcroft-Gault) 37.3 Glucose Level 88 mg/dL (70-99) Calcium Level 7.8 mg/dL (8.5-10.1) Assessment and Plan Assessmemt and Plan Problems Medical Problems: (1) Acute renal failure Status: Acute (2) Chest pain Status: Acute (3) Hypotension Status: Acute (4) Unable to care for self Status: Acute Comment Review of Relevant I have reviewed the following items marlene (where applicable) has been applied. Justifications for Admission Other Justification VIRGINIE NEGRO MD Jun 22, 2021 10:38
[2021-06-22 11:00] VITALS: BP 129/69
[2021-06-22] MEDS ORDERED: CIPROFLOXACIN 400MG PREMIX 200 ML IV ONE (11:00)
--- NOTE | 2021-06-22 12:16 | PDOC ---
DATE OF SERVICE DATE: 06/22/21 TIME: 12:16 SUBJECTIVE ROS Denies SOB, No N/V. Still feeling weak. Patient has been accepted for long-term care OBJECTIVE Vital Signs Vital Signs Date Time Temp Pulse Resp B/P (MAP) Pulse Ox O2 Delivery O2 Flow Rate FiO2 06/22/21 11:00 97.4 81 16 129/69 (89) 92 Room Air 97.4 I & 0 Intake and Output 06/22/21 07:00 Intake Total 880 ml Output Total 950 ml Balance -70 ml Intake Oral 880 ml Output Urine Total 950 ml PHYSICAL EXAM Physical Exam GENERAL:NAD NECK: Supple, no JVD, no thyromegaly was noted. LUNGS: decreased breath sounds at bases HEART: RRR, S1, S2 present. ABDOMEN: Soft, nontender. Positive bowel sounds EXTREMITIES: LE Lymphedema NEUROLOGIC:Grossly normal SKIN: severe hyperkeratotic lesions on the lower extremities. No rebollar, No CVA or SP tenderness DIAGNOSIS/ASSESSMENT Assessment & Plan ANTWAN- Creatinine trending down 2.5-->1.8;Renal US Sonographically unremarkable kidneys,. Maintain fluid balance, supportive care, Avoid Nephrotoxins . Advised to follow with us after DC(Routine ) CKD stage 3 B- Baseline Cr 1.6-1.8 coronary artery disease- stable Leg Pain - per primary UTI- Pseudomonas UTI - low colony count, now on Cipro for 10 days per Primary COMMENT/RELEVANT DATA Meds Current Medications Medications (Trade) Dose Ordered Sig/Placido Start Time Stop Time Status Last Admin Dose Admin Acetaminophen (Tylenol) 650 mg PRN Q6HRS PRN 06/18/21 17:30 Amiodarone HCl (Cordarone) 200 mg DAILY 06/19/21 09:00 06/22/21 08:34 200 MG Apixaban (Eliquis) 5 mg BID 06/18/21 21:00 06/22/21 08:34 5 MG Aspirin (Ecotrin) 81 mg DAILY 06/19/21 09:00 06/22/21 08:34 81 MG Atorvastatin Calcium (Lipitor) 20 mg QHS 06/18/21 21:00 06/22/21 01:06 20 MG Brimonidine Tartrate (Alphagan) 1 drop BID 06/19/21 13:00 06/22/21 08:33 1 DROP Cefdinir (Omnicef) 300 mg BID 06/18/21 21:00 06/22/21 10:37 DC 06/22/21 08:34 300 MG Ciprofloxacin (Cipro) 250 mg BID 06/22/21 21:00 07/02/21 20:59 Ciprofloxacin/ Dextrose 200 ml @ 200 mls/hr 1X ONCE 06/22/21 11:00 06/22/21 11:59 DC 06/22/21 10:51 200 MLS/HR Furosemide (Lasix) 40 mg DAILY 06/19/21 09:00 06/22/21 08:34 40 MG Lactic Acid (Lac-Hydrin) 1 phyllis BID 06/20/21 10:00 06/22/21 08:35 1 PHYLLIS Lactobacillus Rhamnosus (Culturelle) 1 cap BID 06/18/21 21:00 06/22/21 08:34 1 CAP Latanoprost (Xalatan) 1 drop QHS 06/18/21 21:00 06/21/21 21:00 1 DROP Metoprolol Tartrate (Lopressor) 25 mg BID 06/18/21 21:00 06/22/21 08:34 25 MG Nitroglycerin (Nitrostat) 0.4 mg PRN Q5MIN PRN 06/18/21 12:15 Oxycodone/ Acetaminophen (Percocet 5/325) 1 tab PRN Q4HRS PRN 06/19/21 17:30 Sodium Chloride 500 ml @ 500 mls/hr 1X ONCE 06/18/21 13:30 06/18/21 14:29 DC Timolol Maleate (Timoptic 0.5% Ophth) 1 drop BID 06/19/21 13:00 06/22/21 08:33 1 DROP Zolpidem Tartrate (Ambien) 5 mg PRN QHS PRN 06/18/21 17:30 Lab Laboratory Tests Test 06/21/21 15:45 06/22/21 03:10 SARS-CoV-2 RNA (ELIAZAR) Positive (Negative) Sodium Level 141 mmol/L (136-145) Potassium Level 4.1 mmol/L (3.5-5.1) Chloride Level 104 mmol/L (98-107) Carbon Dioxide Level 28 mmol/L (21-32) Anion Gap 9 (6-14) Blood Urea Nitrogen 29 mg/dL (8-26) Creatinine 1.8 mg/dL (0.7-1.3) Estimated GFR (Cockcroft-Gault) 37.3 Glucose Level 88 mg/dL (70-99) Calcium Level 7.8 mg/dL (8.5-10.1) Results All relevant outside records, renal labs, imaging studies, telemetry/EKG's were reviewed. Justicifation of Admission Dx: Justifications for Admission: Justification of Admission Dx: No FREDI ASTORGA MD Jun 22, 2021 12:16
--- NOTE | 2021-06-22 12:18 | PDOC ---
DORIS CHRISTIAN OPTHALMIC TECH 06/22/21 1218: CARDIO Progress Notes Date and Time Date of Service 06/22/21 Time of Evaluation 1115 Subjective Subjective: No Chest Pain, No shortness of breath, No Palpitations, No Dizziness, Other (c/o bottom of feet hurting ) Vitals Vitals Vital Signs Date Time Temp Pulse Resp B/P (MAP) Pulse Ox O2 Delivery O2 Flow Rate FiO2 06/22/21 11:00 97.4 81 16 129/69 (89) 92 Room Air 97.4 Weight Weight [ ] Input and Output Intake and Output Intake and Output 06/22/21 07:00 Intake Total 880 ml Output Total 950 ml Balance -70 ml Intake Oral 880 ml Output Urine Total 950 ml Laboratory Labs Laboratory Tests Test 06/21/21 15:45 06/22/21 03:10 SARS-CoV-2 RNA (ELIAZAR) Positive (Negative) Sodium Level 141 mmol/L (136-145) Potassium Level 4.1 mmol/L (3.5-5.1) Chloride Level 104 mmol/L (98-107) Carbon Dioxide Level 28 mmol/L (21-32) Anion Gap 9 (6-14) Blood Urea Nitrogen 29 mg/dL (8-26) Creatinine 1.8 mg/dL (0.7-1.3) Estimated GFR (Cockcroft-Gault) 37.3 Glucose Level 88 mg/dL (70-99) Calcium Level 7.8 mg/dL (8.5-10.1) Microbiology Micro Microbiology 06/19/21 Urine Culture - Final, Complete 06/19/21 Antimicrobic Susceptibility - Final, Complete Physical Exam HEENT: Neck Supple W Full Motion Chest: Symmetric LUNGS: Clear to Auscultation Heart: RRR Abdomen: Soft N/T Extremities: Other (trace bilateral LE edema.) Neurology: alert, oriented, follow commands Assessment Assessment 1. Chest pain, atypical. AMI ruled out. 2. Mild acute on chronic diastolic CHF; Echo 06/24 with preserved LV systolic function. appears compensated 3. ANTWAN on CKD; Cr improved 4. CAD: moderate, one-vessel disease per cath 2017 5. PPM in situ: (Biotronik). Recent device check with normal function. AFIB burden is 0. normal device. 7 yrs battery per interrogation. No significant arrhythmia. 6. PAFIB: SR 7. HTN: controlled 8. HLP: statin 9. PAD with chronic lymphedema: LE wounds 10. Hypothyroidism: recent TSH 17 11. COVID + Recommendations Lasix therapy Continue metoprolol for rate control and amiodarone for rhythm maintenance Eliquis for stroke prophylaxis. Secondary prevention Plan for LTC placement upon discharge Supportive care Consider outpatient ischemic evaluation Justicifation of Admission Dx: Justifications for Admission: Justification of Admission Dx: No MATY DIAZ MD 06/22/21 1849: CARDIO Progress Notes Plan Plan The patient was seen and interviewed as well as examined at the bedside. The chart was reviewed. The case was discussed. Agree with the plan of care. DORIS CHRISTIAN APRN Jun 22, 2021 12:18 MATY DIAZ MD Jun 22, 2021 18:49
[2021-06-22 15:00] VITALS: BP 116/71
[2021-06-22 19:00] VITALS: BP 108/60
--- NOTE | 2021-06-22 19:50 | NUR ---
Pt in bed assessment completed vss poc explained pt c/o pain to lower ext but refused pain medication anant light in reach will resume care and continue to monitor pt.
[2021-06-22] MEDS: CIPROFLOXACIN HCL 250 MG TABLET. PO SCH (21:05)
[2021-06-22] MEDS: LATANOPROST 0.005% OPHTH SOLUTION 2.5ML BOTTLE. OU SCH (21:06)
[2021-06-22 22:56] VITALS: BP 109/63
[2021-06-23 03:00] VITALS: BP 133/68
[2021-06-23 06:42] LABS: CALCIUM 8.5 mg/dL (8.5-10.1); CREATININE 1.8 mg/dL (0.7-1.3); GFR 37.3; POTASSIUM 4.3 mmol/L (3.5-5.1)
[2021-06-23 07:00] VITALS: BP 138/85
[2021-06-23] MEDS: AMMONIUM LACTATE 12% TOPICAL LOTION 225GM BOTTLE. TP SCH ×2 (09:00→20:33)
[2021-06-23] MEDS: TIMOLOL 0.5% OPHTH SOLUTION 5ML BOTTLE. OU SCH ×2 (09:00→20:33)
[2021-06-23] MEDS: BRIMONIDINE 0.2% OPHTH SOLUTION 5ML BOTTLE. OU SCH ×2 (09:00→20:33)
--- NOTE | 2021-06-23 10:05 | PDOC ---
DATE OF SERVICE DATE: 06/23/21 TIME: 10:04 SUBJECTIVE ROS Denies SOB, No N/V. OBJECTIVE Vital Signs Vital Signs Date Time Temp Pulse Resp B/P (MAP) Pulse Ox O2 Delivery O2 Flow Rate FiO2 06/23/21 07:00 97.2 86 18 138/85 (102) 91 Room Air 97.2 I & 0 Intake and Output 06/23/21 06:59 Intake Total 980 ml Output Total 250 ml Balance 730 ml Intake Oral 780 ml IV Total 200 ml Output Urine Total 250 ml PHYSICAL EXAM Physical Exam GENERAL:NAD NECK: Supple, no JVD, no thyromegaly was noted. LUNGS: decreased breath sounds at bases HEART: RRR, S1, S2 present. ABDOMEN: Soft, nontender. Positive bowel sounds EXTREMITIES: LE Lymphedema NEUROLOGIC:Grossly normal SKIN: severe hyperkeratotic lesions on the lower extremities. No rebollar, No CVA or SP tenderness DIAGNOSIS/ASSESSMENT Assessment & Plan ANTWAN- resolved, Creatinine nback to his baseline 2.5-->1.8;Renal US Sonog raphically unremarkable kidneys,. Maintain fluid balance, supportive care, Avoid Nephrotoxins . CKD stage 3 B- Baseline Cr 1.6-1.8; Advised to follow with us after DC (Routine ) coronary artery disease- stable Leg Pain - per primary UTI- Pseudomonas UTI - low colony count, now on Cipro for 10 days per Primary COMMENT/RELEVANT DATA Meds Current Medications Medications (Trade) Dose Ordered Sig/Placido Start Time Stop Time Status Last Admin Dose Admin Acetaminophen (Tylenol) 650 mg PRN Q6HRS PRN 06/18/21 17:30 Amiodarone HCl (Cordarone) 200 mg DAILY 06/19/21 09:00 06/22/21 08:34 200 MG Apixaban (Eliquis) 5 mg BID 06/18/21 21:00 06/22/21 21:05 5 MG Aspirin (Ecotrin) 81 mg DAILY 06/19/21 09:00 06/22/21 08:34 81 MG Atorvastatin Calcium (Lipitor) 20 mg QHS 06/18/21 21:00 06/22/21 21:05 20 MG Brimonidine Tartrate (Alphagan) 1 drop BID 06/19/21 13:00 06/22/21 21:06 1 DROP Cefdinir (Omnicef) 300 mg BID 06/18/21 21:00 06/22/21 10:37 DC 06/22/21 08:34 300 MG Ciprofloxacin (Cipro) 250 mg BID 06/22/21 21:00 07/02/21 20:59 06/22/21 21:05 250 MG Ciprofloxacin/ Dextrose 200 ml @ 200 mls/hr 1X ONCE 06/22/21 11:00 06/22/21 11:59 DC 06/22/21 10:51 200 MLS/HR Furosemide (Lasix) 40 mg DAILY 06/19/21 09:00 06/22/21 08:34 40 MG Lactic Acid (Lac-Hydrin) 1 phyllis BID 06/20/21 10:00 06/22/21 21:06 1 PHYLLIS Lactobacillus Rhamnosus (Culturelle) 1 cap BID 06/18/21 21:00 06/22/21 21:05 1 CAP Latanoprost (Xalatan) 1 drop QHS 06/18/21 21:00 06/22/21 21:06 1 DROP Metoprolol Tartrate (Lopressor) 25 mg BID 06/18/21 21:00 06/22/21 21:05 25 MG Nitroglycerin (Nitrostat) 0.4 mg PRN Q5MIN PRN 06/18/21 12:15 Oxycodone/ Acetaminophen (Percocet 5/325) 1 tab PRN Q4HRS PRN 06/19/21 17:30 Sodium Chloride 500 ml @ 500 mls/hr 1X ONCE 06/18/21 13:30 06/18/21 14:29 DC Timolol Maleate (Timoptic 0.5% Ophth) 1 drop BID 06/19/21 13:00 06/22/21 21:06 1 DROP Zolpidem Tartrate (Ambien) 5 mg PRN QHS PRN 06/18/21 17:30 Lab Laboratory Tests Test 06/22/21 21:00 06/23/21 05:35 Glucose (Fingerstick) 109 mg/dL (70-99) Sodium Level 140 mmol/L (136-145) Potassium Level 4.3 mmol/L (3.5-5.1) Chloride Level 103 mmol/L (98-107) Carbon Dioxide Level 31 mmol/L (21-32) Anion Gap 6 (6-14) Blood Urea Nitrogen 28 mg/dL (8-26) Creatinine 1.8 mg/dL (0.7-1.3) Estimated GFR (Cockcroft-Gault) 37.3 Glucose Level 86 mg/dL (70-99) Calcium Level 8.5 mg/dL (8.5-10.1) Results All relevant outside records, renal labs, imaging studies, telemetry/EKG's were reviewed. Justicifation of Admission Dx: Justifications for Admission: Justification of Admission Dx: FREDI Carr MD Jun 23, 2021 10:04
[2021-06-23] MEDS: APIXABAN 5 MG TABLET. PO SCH ×2 (10:11→20:33)
[2021-06-23] MEDS: ASPIRIN ENTERIC COATED 81 MG TABLET.DR. PO SCH (10:13)
[2021-06-23] MEDS: FUROSEMIDE 40 MG TABLET. PO SCH (10:13)
[2021-06-23] MEDS: CIPROFLOXACIN HCL 250 MG TABLET. PO SCH ×2 (10:13→20:32)
[2021-06-23] MEDS: LACTOBACILLUS RHAMNOSUS GG 1 CAPSULE. PO SCH ×2 (10:13→20:32)
[2021-06-23] MEDS: AMIODARONE HCL 200 MG TABLET. PO SCH (10:14)
[2021-06-23] MEDS: METOPROLOL TART IMMED RELEASE 25 MG TABLET. PO SCH ×2 (10:14→20:33)
--- NOTE | 2021-06-23 10:53 | NUR ---
SS following up with discharge planning. SS reviewed pt and discussed with pt RN. Pt is currently on room air. COVID19 positive. Pt on PO Ciprofloxacin. Pt accepted for LTC placement at [facility], ; fax [phone], and can admit on 07/02/2021, once he is 10 days from post COVID19 positive test result. PT/OT recommended acute rehabilitation. Referral was sent to [facility] and pt was denied acceptance due to his discharge plan being LTC placement. Pt has no water, no heat, and no electricity at home and is unsafe to discharge to home at this time. SS will continue to follow for discharge planning.
[2021-06-23 11:00] VITALS: BP 115/62
--- NOTE | 2021-06-23 13:54 | PDOC ---
[employer] PROGRESS NOTE Date of Service DOS: DATE: 06/23/21 TIME: 13:36 Chief Complaint Chief Complaint Chest pain, angina, stable Pseudomonas UTI - low colony count, however in male likely prostate involvement, will need at least 10 days treatment with cipro Known coronary artery disease acute on chronic renal failure Leg pain, acute on chronic, he says he cant walk, needs PT and OT Chronic right fifth metatarsal nonhealing wound, Foot xray suggests osteomyelitis right 5th metatarsal bone,concern for adequate healing with exposed bone PAD Chronic right plantar ulcerations, Chronic lymphedema, chronic venous stasis, atrial fibrillation,status post PPM, CHF, hypertension, hyperlipidemia, osteoarthritis, History of glaucoma chest pain, elevated troponin poa, self-care deficit. 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 Came to ED c/o chest pain, unable to walk. Stable. No shortness of breath not hypoxic 06/19: Pt and ot. renal following. cont other 06/20: Cr improved to 1.8. Still very weak. No chest pain currently. Notably with gluteal bilateral foot wounds. 06/21: Cr 1.7. Still feels weak. No chest pain currently. Getting foot wound and gluteal wound care. 06/22: Stable. Still weak. Feels little more foot pain today. Urine culture returned with Pseudomonas sensitive to ciprofloxacin. Started on Cipro today DC cefdinir for now. Patient has been accepted for long-term care but given needs for ciprofloxacin atrial fibrillation will need to be monitored on telemetry while receiving ciprofloxacin. Per his brother there is no water or gas or telephone service at their home. COVID-19 rapid came positive later in the day. 06/23: Not short of breath not hypoxic bilateral foot pain stable. Tolerating Cipro with no significant appearance he is on telemetry. He was able to stand up on his own to urinate but was not able to take more than 1 step. Vitals/I&O Vitals/I&O: Vital Signs Date Time Temp Pulse Resp B/P (MAP) Pulse Ox O2 Delivery O2 Flow Rate FiO2 06/23/21 11:00 97.0 73 18 115/62 (79) 96 Room Air 97.0 I & O 06/22/21 06/22/21 06/23/21 14:59 22:59 06:59 Intake Total 440 ml 100 ml 440 ml Output Total 250 ml Balance 440 ml -150 ml 440 ml Physical Exam General: Alert, Oriented X3, Cooperative, mild distress Heart: Regular rate Lungs: Clear Abdomen: Normal bowel sounds, No tenderness Skin: Other (thick growth on toes, lichenous with scale, ) Labs Labs: Laboratory Tests Test 06/22/21 21:00 06/23/21 05:35 Glucose (Fingerstick) 109 mg/dL (70-99) Sodium Level 140 mmol/L (136-145) Potassium Level 4.3 mmol/L (3.5-5.1) Chloride Level 103 mmol/L (98-107) Carbon Dioxide Level 31 mmol/L (21-32) Anion Gap 6 (6-14) Blood Urea Nitrogen 28 mg/dL (8-26) Creatinine 1.8 mg/dL (0.7-1.3) Estimated GFR (Cockcroft-Gault) 37.3 Glucose Level 86 mg/dL (70-99) Calcium Level 8.5 mg/dL (8.5-10.1) Assessment and Plan Assessmemt and Plan Problems Medical Problems: (1) Acute renal failure Status: Acute (2) Chest pain Status: Acute (3) Hypotension Status: Acute (4) Unable to care for self Status: Acute Comment Review of Relevant I have reviewed the following items marlene (where applicable) has been applied. Medications: Current Medications Medications (Trade) Dose Ordered Sig/Placido Route PRN Reason Start Time Stop Time Status Last Admin Dose Admin Ciprofloxacin (Cipro) 250 mg BID PO 06/22/21 21:00 07/02/21 20:59 06/23/21 10:13 Justifications for Admission Other Justification VIRGINIE NEGRO MD Jun 23, 2021 13:54
[2021-06-23 15:00] VITALS: BP 90/52
[2021-06-23 19:00] VITALS: BP 117/59
[2021-06-23] MEDS: ATORVASTATIN CALCIUM 20 MG TABLET PO SCH (20:32)
[2021-06-23] MEDS: LATANOPROST 0.005% OPHTH SOLUTION 2.5ML BOTTLE. OU SCH (20:33)
[2021-06-23 22:08] VITALS: BP 94/53
[2021-06-24 02:47] VITALS: BP 107/57
[2021-06-24 07:00] VITALS: BP 127/70
[2021-06-24] MEDS: TIMOLOL 0.5% OPHTH SOLUTION 5ML BOTTLE. OU SCH ×2 (09:00→21:00)
[2021-06-24] MEDS: AMMONIUM LACTATE 12% TOPICAL LOTION 225GM BOTTLE. TP SCH ×2 (09:00→21:00)
[2021-06-24] MEDS: BRIMONIDINE 0.2% OPHTH SOLUTION 5ML BOTTLE. OU SCH ×2 (09:00→21:00)
[2021-06-24] MEDS: LACTOBACILLUS RHAMNOSUS GG 1 CAPSULE. PO SCH ×2 (09:21→21:22)
[2021-06-24] MEDS: CIPROFLOXACIN HCL 250 MG TABLET. PO SCH ×2 (09:21→21:22)
[2021-06-24] MEDS: METOPROLOL TART IMMED RELEASE 25 MG TABLET. PO SCH ×2 (09:22→21:23)
[2021-06-24] MEDS: FUROSEMIDE 40 MG TABLET. PO SCH (09:22)
[2021-06-24] MEDS: AMIODARONE HCL 200 MG TABLET. PO SCH (09:22)
[2021-06-24] MEDS: APIXABAN 5 MG TABLET. PO SCH ×2 (09:23→21:22)
[2021-06-24] MEDS: ASPIRIN ENTERIC COATED 81 MG TABLET.DR. PO SCH (09:23)
[2021-06-24 10:45] VITALS: BP 96/55
--- NOTE | 2021-06-24 11:13 | PDOC ---
DATE OF SERVICE DATE: 06/24/21 TIME: 11:12 SUBJECTIVE ROS Denies SOB, No N/V. OBJECTIVE Vital Signs Vital Signs Date Time Temp Pulse Resp B/P (MAP) Pulse Ox O2 Delivery O2 Flow Rate FiO2 06/24/21 10:45 97.5 17 18 96/55 (69) 96 Room Air 97.5 I & 0 Intake and Output 06/24/21 07:00 Intake Total 678 ml Output Total 750 ml Balance -72 ml Intake Oral 678 ml Output Urine Total 750 ml PHYSICAL EXAM Physical Exam GENERAL:NAD NECK: Supple, no JVD, no thyromegaly was noted. LUNGS: decreased breath sounds at bases HEART: RRR, S1, S2 present. ABDOMEN: Soft, nontender. Positive bowel sounds EXTREMITIES: LE Lymphedema NEUROLOGIC:Grossly normal SKIN: severe hyperkeratotic lesions on the lower extremities. No rebollar, No CVA or SP tenderness DIAGNOSIS/ASSESSMENT Assessment & Plan ANTWAN- resolved, Creatinine nback to his baseline 2.5-->1.8;Renal US Sonographically unremarkable kidneys,. Maintain fluid balance, supportive care, Avoid Nephrotoxins . CKD stage 3 B- Baseline Cr 1.6-1.8; Advised to follow with us after DC (Routine ) coronary artery disease- stable Leg Pain - per primary UTI- Pseudomonas UTI - low colony count, now on Cipro for 10 days per Primary COMMENT/RELEVANT DATA Meds Current Medications Medications (Trade) Dose Ordered Sig/Placido Start Time Stop Time Status Last Admin Dose Admin Acetaminophen (Tylenol) 650 mg PRN Q6HRS PRN 06/18/21 17:30 Amiodarone HCl (Cordarone) 200 mg DAILY 06/19/21 09:00 06/24/21 09:22 200 MG Apixaban (Eliquis) 5 mg BID 06/18/21 21:00 06/24/21 09:23 5 MG Aspirin (Ecotrin) 81 mg DAILY 06/19/21 09:00 06/24/21 09:23 81 MG Atorvastatin Calcium (Lipitor) 20 mg QHS 06/18/21 21:00 06/23/21 20:32 20 MG Brimonidine Tartrate (Alphagan) 1 drop BID 06/19/21 13:00 06/24/21 09:00 1 DROP Cefdinir (Omnicef) 300 mg BID 06/18/21 21:00 06/22/21 10:37 DC 06/22/21 08:34 300 MG Ciprofloxacin (Cipro) 250 mg BID 06/22/21 21:00 07/02/21 20:59 06/24/21 09:21 250 MG Ciprofloxacin/ Dextrose 200 ml @ 200 mls/hr 1X ONCE 06/22/21 11:00 06/22/21 11:59 DC 06/22/21 10:51 200 MLS/HR Furosemide (Lasix) 40 mg DAILY 06/19/21 09:00 06/24/21 09:22 40 MG Lactic Acid (Lac-Hydrin) 1 phyllis BID 06/20/21 10:00 06/24/21 09:00 1 PHYLLIS Lactobacillus Rhamnosus (Culturelle) 1 cap BID 06/18/21 21:00 06/24/21 09:21 1 CAP Latanoprost (Xalatan) 1 drop QHS 06/18/21 21:00 06/23/21 20:33 1 DROP Metoprolol Tartrate (Lopressor) 25 mg BID 06/18/21 21:00 06/24/21 09:22 25 MG Nitroglycerin (Nitrostat) 0.4 mg PRN Q5MIN PRN 06/18/21 12:15 Oxycodone/ Acetaminophen (Percocet 5/325) 1 tab PRN Q4HRS PRN 06/19/21 17:30 Sodium Chloride 500 ml @ 500 mls/hr 1X ONCE 06/18/21 13:30 06/18/21 14:29 DC Timolol Maleate (Timoptic 0.5% Ophth) 1 drop BID 06/19/21 13:00 06/24/21 09:00 1 DROP Zolpidem Tartrate (Ambien) 5 mg PRN QHS PRN 06/18/21 17:30 Results All relevant outside records, renal labs, imaging studies, telemetry/EKG's were reviewed. Justicifation of Admission Dx: Justifications for Admission: Justification of Admission Dx: FREDI Carr MD Jun 24, 2021 11:13
--- NOTE | 2021-06-24 12:12 | NUR ---
SS following up with discharge planning. SS reviewed pt and discussed with pt RN. Pt is currently on room air. COVID19 positive. Pt on PO Ciprofloxacin. Pt accepted for LTC placement at [facility], ; fax [phone], and can admit on 07/02/2021, once he is 10 days from post COVID19 positive test result. PT/OT following. Pt has no water, no heat, and no electricity at home and is unsafe to discharge to home at this time. SS will continue to follow for discharge planning.
--- NOTE | 2021-06-24 12:41 | PDOC ---
[employer] PROGRESS NOTE Date of Service DOS: DATE: 06/24/21 TIME: 12:40 Chief Complaint Chief Complaint Chest pain, angina, stable Pseudomonas UTI - low colony count, however in male likely prostate involvement, will need at least 10 days treatment with cipro Known coronary artery disease acute on chronic renal failure Leg pain, acute on chronic, he says he cant walk, needs PT and OT Chronic right fifth metatarsal nonhealing wound, Foot xray suggests osteomyelitis right 5th metatarsal bone,concern for adequate healing with exposed bone PAD Chronic right plantar ulcerations, Chronic lymphedema, chronic venous stasis, atrial fibrillation,status post PPM, CHF, hypertension, hyperlipidemia, osteoarthritis, History of glaucoma chest pain, elevated troponin poa, self-care deficit. 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 Came to ED c/o chest pain, unable to walk. Stable. No shortness of breath not hypoxic 06/19: Pt and ot. renal following. cont other 06/20: Cr improved to 1.8. Still very weak. No chest pain currently. Notably with gluteal bilateral foot wounds. 06/21: Cr 1.7. Still feels weak. No chest pain currently. Getting foot wound and gluteal wound care. 06/22: Stable. Still weak. Feels little more foot pain today. Urine culture returned with Pseudomonas sensitive to ciprofloxacin. Started on Cipro today DC cefdinir for now. Patient has been accepted for long-term care but given needs for ciprofloxacin atrial fibrillation will need to be monitored on telemetry while receiving ciprofloxacin. Per his brother there is no water or gas or telephone service at their home. COVID-19 rapid came positive later in the day. 06/23: Not short of breath not hypoxic bilateral foot pain stable. Tolerating Cipro with no significant appearance he is on telemetry. He was able to stand up on his own to urinate but was not able to take more than 1 step. 06/24: Seen bedside. No shortness of breath or chest pain not hypoxic. Still profoundly weak. Had wound care for his feet. Very constipated. Vitals/I&O Vitals/I&O: Vital Signs Date Time Temp Pulse Resp B/P (MAP) Pulse Ox O2 Delivery O2 Flow Rate FiO2 06/24/21 10:45 97.5 17 18 96/55 (69) 96 Room Air 97.5 I & O 06/23/21 06/23/21 06/24/21 15:00 23:00 07:00 Intake Total 298 ml 380 ml Output Total 150 ml 400 ml 200 ml Balance 148 ml -20 ml -200 ml Physical Exam General: Alert, Oriented X3, Cooperative, mild distress Heart: Regular rate Lungs: Clear Abdomen: Normal bowel sounds, No tenderness Skin: Other (thick growth on toes, lichenous with scale, ) Assessment and Plan Assessmemt and Plan Problems Medical Problems: (1) Acute renal failure Status: Acute (2) Chest pain Status: Acute (3) Hypotension Status: Acute (4) Unable to care for self Status: Acute Comment Review of Relevant I have reviewed the following items marlene (where applicable) has been applied. Justifications for Admission Other Justification VIRGINIE NEGRO MD Jun 24, 2021 12:41
[2021-06-24] MEDS ORDERED: SENNOSIDES/DOCUSATE 8.6/50MG TABLET. PO PRN (12:45)
[2021-06-24 15:00] VITALS: BP 98/61
[2021-06-24] MEDS: POLYETHYLENE GLYCOL 3350 17 GM PACKET. PO SCH (15:20)
[2021-06-24 19:20] VITALS: BP 111/62
[2021-06-24] MEDS: LATANOPROST 0.005% OPHTH SOLUTION 2.5ML BOTTLE. OU SCH (21:00)
[2021-06-24] MEDS: ATORVASTATIN CALCIUM 20 MG TABLET PO SCH (21:22)
[2021-06-24] MEDS: PSYLLIUM HUSK (SUGAR FREE) 1 PKT PACKET PO SCH (21:23)
[2021-06-24 22:29] VITALS: BP 104/58
[2021-06-25 02:21] VITALS: BP 112/56
[2021-06-25 05:53] LABS: CALCIUM 8.1 mg/dL (8.5-10.1); CREATININE 1.9 mg/dL (0.7-1.3); POTASSIUM 3.6 mmol/L (3.5-5.1)
[2021-06-25 07:29] VITALS: BP 114/65
[2021-06-25] MEDS: POLYETHYLENE GLYCOL 3350 17 GM PACKET. PO SCH (07:53)
[2021-06-25] MEDS: TIMOLOL 0.5% OPHTH SOLUTION 5ML BOTTLE. OU SCH ×2 (08:43→20:35)
[2021-06-25] MEDS: BRIMONIDINE 0.2% OPHTH SOLUTION 5ML BOTTLE. OU SCH ×2 (08:43→20:35)
[2021-06-25] MEDS: AMMONIUM LACTATE 12% TOPICAL LOTION 225GM BOTTLE. TP SCH ×2 (08:43→20:36)
[2021-06-25] MEDS: CIPROFLOXACIN HCL 250 MG TABLET. PO SCH ×2 (08:44→20:28)
[2021-06-25] MEDS: APIXABAN 5 MG TABLET. PO SCH ×2 (08:44→20:30)
[2021-06-25] MEDS: LACTOBACILLUS RHAMNOSUS GG 1 CAPSULE. PO SCH ×2 (08:44→20:28)
[2021-06-25] MEDS: FUROSEMIDE 40 MG TABLET. PO SCH (08:44)
[2021-06-25] MEDS: ASPIRIN ENTERIC COATED 81 MG TABLET.DR. PO SCH (08:44)
[2021-06-25] MEDS: METOPROLOL TART IMMED RELEASE 25 MG TABLET. PO SCH ×2 (08:44→20:29)
[2021-06-25] MEDS: AMIODARONE HCL 200 MG TABLET. PO SCH (08:45)
--- NOTE | 2021-06-25 09:47 | PDOC ---
CARDIOLOGY PROGRESS NOTE SUBJECTIVE: No acute events overnight. Patient denies any specific cardiac problems. Had some palpitations yesterday but no further recurrence. OBJECTIVE: Vital Signs/I&O: Vital Signs Date Time Temp Pulse Resp B/P (MAP) Pulse Ox O2 Delivery O2 Flow Rate FiO2 06/25/21 08:45 68 114/65 06/25/21 08:00 Room Air 06/25/21 07:29 98.0 18 97 98.0 06/24/21 10:45 I & O 06/24/21 06/24/21 06/25/21 15:00 23:00 07:00 Intake Total 530 ml 380 ml 100 ml Output Total 450 ml Balance 530 ml -70 ml 100 ml Objective: The patient appeared well nourished and normally developed. Head exam is unremarkable. No scleral icterus or corneal arcus noted. Neck is without jugular venous distension, thyromegaly, or carotid bruits. Carotid upstrokes are brisk bilaterally. Lungs are clear to auscultation and percussion. Cardiac exam reveals the PMI to be normally sized and situated. Rhythm is regular. First and second heart sounds normal. No murmurs, rubs or gallops. Abdominal exam reveals normal bowel sounds, no masses, no organomegaly and no aortic enlargement. Extremities are nonedematous with normal radial pulses, diminished pedal pulses, chronic lymphedema changes. Msk: No traumua Neuro: No focal deficits CURRENT MEDICATIONS: Aspirin, Lasix, metoprolol, apixaban and amiodarone DIAGNOSTIC TESTING: labs reviewed. Labs: Cr 1.9 ASSESSMENT: 1. Chest pain, atypical. AMI ruled out. 2. Mild acute on chronic diastolic CHF; Echo 06/24 with preserved LV systolic function. appears compensated 3. ANTWAN on CKD; Cr improved 4. CAD: moderate, one-vessel disease per cath 2017 5. PPM in situ: (Biotronik). Recent device check with normal function. AFIB burden is 0. normal device. 7 yrs battery per interrogation. No significant arrhythmia. 6. PAFIB: SR 7. HTN: controlled 8. HLP: statin 9. PAD with chronic lymphedema: LE wounds - stable. No new changes. Aortogram in 03/2021 with no significant above knee disease. R AT occlusion. 10. Hypothyroidism: recent TSH 17 11. COVID + PLAN: 1. Continue supportive care. No new CV recs. Continue present meds and anticoagulation. Awaiting placement. Thanks Justicifation of Admission Dx: Justifications for Admission: Justification of Admission Dx: No MATY DIAZ MD Jun 25, 2021 09:47
[2021-06-25 11:14] VITALS: BP 91/53
--- NOTE | 2021-06-25 13:13 | PDOC ---
DATE OF SERVICE: DOS: DATE: 06/25/21 TIME: 13:12 SUBJECTIVE ROS Follow-up for chronic kidney disease stage III Patient remains in COVID-19 isolation on this time. Review of systems unable to be obtained OBJECTIVE Vital Signs Vital Signs Date Time Temp Pulse Resp B/P (MAP) Pulse Ox O2 Delivery O2 Flow Rate FiO2 06/25/21 11:14 97.8 71 18 91/53 (66) 95 Room Air 97.8 06/24/21 10:45 I & 0 Intake and Output 06/25/21 07:00 Intake Total 1010 ml Output Total 450 ml Balance 560 ml Intake Oral 1010 ml Output Urine Total 450 ml PHYSICAL EXAM Physical Exam Patient remains in COVID-19 associated respiratory isolation and physical exam was unable to be performed. This was reviewed as documented by other providers and corroborated with the nurse DIAGNOSIS/ASSESSMENT Assessment & Plan CKD 3: Creatinine remained stable urine output is adequate no further recommenda tions. We will follow-up on Sunday COMMENT/RELEVANT DATA Meds Current Medications Medications (Trade) Dose Ordered Sig/Placido Start Time Stop Time Status Last Admin Dose Admin Acetaminophen (Tylenol) 650 mg PRN Q6HRS PRN 06/18/21 17:30 Amiodarone HCl (Cordarone) 200 mg DAILY 06/19/21 09:00 06/25/21 08:45 200 MG Apixaban (Eliquis) 5 mg BID 06/18/21 21:00 06/25/21 08:44 5 MG Aspirin (Ecotrin) 81 mg DAILY 06/19/21 09:00 06/25/21 08:44 81 MG Atorvastatin Calcium (Lipitor) 20 mg QHS 06/18/21 21:00 06/24/21 21:22 20 MG Brimonidine Tartrate (Alphagan) 1 drop BID 06/19/21 13:00 06/25/21 08:43 1 DROP Cefdinir (Omnicef) 300 mg BID 06/18/21 21:00 06/22/21 10:37 DC 06/22/21 08:34 300 MG Ciprofloxacin (Cipro) 250 mg BID 06/22/21 21:00 07/02/21 20:59 06/25/21 08:44 250 MG Ciprofloxacin/ Dextrose 200 ml @ 200 mls/hr 1X ONCE 06/22/21 11:00 06/22/21 11:59 DC 06/22/21 10:51 200 MLS/HR Furosemide (Lasix) 40 mg DAILY 06/19/21 09:00 06/25/21 08:44 40 MG Lactic Acid (Lac-Hydrin) 1 phyllis BID 06/20/21 10:00 06/25/21 08:43 1 PHYLLIS Lactobacillus Rhamnosus (Culturelle) 1 cap BID 06/18/21 21:00 06/25/21 08:44 1 CAP Latanoprost (Xalatan) 1 drop QHS 06/18/21 21:00 06/24/21 21:00 1 DROP Metoprolol Tartrate (Lopressor) 25 mg BID 06/18/21 21:00 06/25/21 08:44 25 MG Nitroglycerin (Nitrostat) 0.4 mg PRN Q5MIN PRN 06/18/21 12:15 Oxycodone/ Acetaminophen (Percocet 5/325) 1 tab PRN Q4HRS PRN 06/19/21 17:30 Polyethylene Glycol (miraLAX PACKET) 17 gm DAILY 06/24/21 12:45 06/24/21 15:20 17 GM Psyllium Hydrophilic Mucilloid (Metamucil Fiber Packet) 1 pkt QHS 06/24/21 21:00 06/24/21 21:23 1 PKT Senna/Docusate Sodium (Senna Plus) 2 tab PRN BID PRN 06/24/21 12:45 Sodium Chloride 500 ml @ 500 mls/hr 1X ONCE 06/18/21 13:30 06/18/21 14:29 DC Timolol Maleate (Timoptic 0.5% [facility]) 1 drop BID 06/19/21 13:00 06/25/21 08:43 1 DROP Zolpidem Tartrate (Ambien) 5 mg PRN QHS PRN 06/18/21 17:30 Lab Laboratory Tests Test 06/25/21 04:00 Sodium Level 138 mmol/L (136-145) Potassium Level 3.6 mmol/L (3.5-5.1) Chloride Level 102 mmol/L (98-107) Carbon Dioxide Level 28 mmol/L (21-32) Anion Gap 8 (6-14) Blood Urea Nitrogen 30 mg/dL (8-26) Creatinine 1.9 mg/dL (0.7-1.3) Estimated GFR (Cockcroft-Gault) 35.0 Glucose Level 94 mg/dL (70-99) Calcium Level 8.1 mg/dL (8.5-10.1) Results All relevant outside records, renal labs, imaging studies, telemetry/EKG's were reviewed. Justicifation of Admission Dx: Justifications for Admission: Justification of Admission Dx: SOPHIE Navarrete MD Jun 25, 2021 13:13
--- NOTE | 2021-06-25 13:35 | PDOC ---
[employer] PROGRESS NOTE Date of Service DOS: DATE: 06/25/21 TIME: 13:34 Chief Complaint Chief Complaint Chest pain, angina, stable Pseudomonas UTI - low colony count, however in male likely prostate involvement, will need at least 10 days treatment with cipro Known coronary artery disease acute on chronic renal failure Leg pain, acute on chronic, he says he cant walk, needs PT and OT Chronic right fifth metatarsal nonhealing wound, Foot xray suggests osteomyelitis right 5th metatarsal bone,concern for adequate healing with exposed bone PAD Chronic right plantar ulcerations, Chronic lymphedema, chronic venous stasis, atrial fibrillation,status post PPM, CHF, hypertension, hyperlipidemia, osteoarthritis, History of glaucoma chest pain, elevated troponin poa, self-care deficit. 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 Came to ED c/o chest pain, unable to walk. Stable. No shortness of breath not hypoxic 06/19: Pt and ot. renal following. cont other 06/20: Cr improved to 1.8. Still very weak. No chest pain currently. Notably with gluteal bilateral foot wounds. 06/21: Cr 1.7. Still feels weak. No chest pain currently. Getting foot wound and gluteal wound care. 06/22: Stable. Still weak. Feels little more foot pain today. Urine culture returned with Pseudomonas sensitive to ciprofloxacin. Started on Cipro today DC cefdinir for now. Patient has been accepted for long-term care but given needs for ciprofloxacin atrial fibrillation will need to be monitored on telemetry while receiving ciprofloxacin. Per his brother there is no water or gas or telephone service at their home. COVID-19 rapid came positive later in the day. 06/23: Not short of breath not hypoxic bilateral foot pain stable. Tolerating Cipro with no significant appearance he is on telemetry. He was able to stand up on his own to urinate but was not able to take more than 1 step. 06/24: Seen bedside. No shortness of breath or chest pain not hypoxic. Still profoundly weak. Had wound care for his feet. Very constipated. 06/25: Seen bedside. [place] relieved with bowel movement. No shortness of breath or chest pain did have some palpitations with his BM yesterday still very weak. Was able to stand for 10 seconds without assistance today. Awaiting placement Vitals/I&O Vitals/I&O: Vital Signs Date Time Temp Pulse Resp B/P (MAP) Pulse Ox O2 Delivery O2 Flow Rate FiO2 06/25/21 11:14 97.8 71 18 91/53 (66) 95 Room Air 97.8 06/24/21 10:45 I & O 06/24/21 06/24/21 06/25/21 15:00 23:00 07:00 Intake Total 530 ml 380 ml 100 ml Output Total 450 ml Balance 530 ml -70 ml 100 ml Physical Exam General: Alert, Oriented X3, Cooperative, mild distress Heart: Regular rate Lungs: Clear Abdomen: Normal bowel sounds, No tenderness Skin: Other (thick growth on toes, lichenous with scale, ) Labs Labs: Laboratory Tests Test 06/25/21 04:00 Sodium Level 138 mmol/L (136-145) Potassium Level 3.6 mmol/L (3.5-5.1) Chloride Level 102 mmol/L (98-107) Carbon Dioxide Level 28 mmol/L (21-32) Anion Gap 8 (6-14) Blood Urea Nitrogen 30 mg/dL (8-26) Creatinine 1.9 mg/dL (0.7-1.3) Estimated GFR (Cockcroft-Gault) 35.0 Glucose Level 94 mg/dL (70-99) Calcium Level 8.1 mg/dL (8.5-10.1) Assessment and Plan Assessmemt and Plan Problems Medical Problems: (1) Acute renal failure Status: Acute (2) Chest pain Status: Acute (3) Hypotension Status: Acute (4) Unable to care for self Status: Acute Comment Review of Relevant I have reviewed the following items marlene (where applicable) has been applied. Medications: Current Medications Medications (Trade) Dose Ordered Sig/Placido Route PRN Reason Start Time Stop Time Status Last Admin Dose Admin Psyllium Hydrophilic Mucilloid (Metamucil Fiber Packet) 1 pkt QHS PO 06/24/21 21:00 06/24/21 21:23 Justifications for Admission Other Justification VIRGINIE NEGRO MD Jun 25, 2021 13:35
[2021-06-25 15:00] VITALS: BP 90/55
[2021-06-25 19:00] VITALS: BP 114/64
[2021-06-25] MEDS: PSYLLIUM HUSK (SUGAR FREE) 1 PKT PACKET PO SCH (20:28)
[2021-06-25] MEDS: ZOLPIDEM 5 MG TABLET. PO PRN (20:28)
[2021-06-25] MEDS: oxyCODONE/APAP 5/325 1 TAB TABLET PO PRN (20:30)
[2021-06-25] MEDS: ATORVASTATIN CALCIUM 20 MG TABLET PO SCH (20:30)
[2021-06-25] MEDS: LATANOPROST 0.005% OPHTH SOLUTION 2.5ML BOTTLE. OU SCH (20:35)
[2021-06-25 23:00] VITALS: BP 78/41
[2021-06-26 03:06] VITALS: BP 90/62
[2021-06-26 07:00] VITALS: BP 122/71
[2021-06-26 08:24] LABS: CALCIUM 8.2 mg/dL (8.5-10.1); CREATININE 1.9 mg/dL (0.7-1.3)
[2021-06-26] MEDS ORDERED: IV NORMAL SALINE 1000ML BAG 1,000 ML IV ONE (08:30)
[2021-06-26] MEDS: BRIMONIDINE 0.2% OPHTH SOLUTION 5ML BOTTLE. OU SCH ×2 (09:00→21:00)
[2021-06-26] MEDS: AMMONIUM LACTATE 12% TOPICAL LOTION 225GM BOTTLE. TP SCH ×2 (09:00→21:00)
[2021-06-26] MEDS: POLYETHYLENE GLYCOL 3350 17 GM PACKET. PO SCH ×2 (09:00→09:49)
[2021-06-26] MEDS: TIMOLOL 0.5% OPHTH SOLUTION 5ML BOTTLE. OU SCH ×2 (09:00→21:00)
[2021-06-26] MEDS: LACTOBACILLUS RHAMNOSUS GG 1 CAPSULE. PO SCH ×2 (09:45→22:37)
[2021-06-26] MEDS: APIXABAN 5 MG TABLET. PO SCH ×2 (09:45→22:37)
[2021-06-26] MEDS: METOPROLOL TART IMMED RELEASE 25 MG TABLET. PO SCH ×2 (09:45→22:38)
[2021-06-26] MEDS: ASPIRIN ENTERIC COATED 81 MG TABLET.DR. PO SCH (09:45)
[2021-06-26] MEDS: FUROSEMIDE 40 MG TABLET. PO SCH (09:46)
[2021-06-26] MEDS: CIPROFLOXACIN HCL 250 MG TABLET. PO SCH ×2 (09:46→22:38)
[2021-06-26] MEDS: AMIODARONE HCL 200 MG TABLET. PO SCH (09:46)
[2021-06-26 11:00] VITALS: BP 120/65
--- NOTE | 2021-06-26 11:00 | PDOC ---
[employer] PROGRESS NOTE Date of Service DOS: DATE: 06/26/21 TIME: 10:58 Chief Complaint Chief Complaint Chest pain, angina, stable Pseudomonas UTI - low colony count, however in male likely prostate involvement, will need at least 10 days treatment with cipro Known coronary artery disease acute on chronic renal failure Leg pain, acute on chronic, he says he cant walk, needs PT and OT Chronic right fifth metatarsal nonhealing wound, Foot xray suggests osteomyelitis right 5th metatarsal bone,concern for adequate healing with exposed bone PAD Chronic right plantar ulcerations, Chronic lymphedema, chronic venous stasis, atrial fibrillation,status post PPM, CHF, hypertension, hyperlipidemia, osteoarthritis, History of glaucoma chest pain, elevated troponin poa, self-care deficit. 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 Came to ED c/o chest pain, unable to walk. Stable. No shortness of breath not hypoxic 06/19: Pt and ot. renal following. cont other 06/20: Cr improved to 1.8. Still very weak. No chest pain currently. Notably with gluteal bilateral foot wounds. 06/21: Cr 1.7. Still feels weak. No chest pain currently. Getting foot wound and gluteal wound care. 06/22: Stable. Still weak. Feels little more foot pain today. Urine culture returned with Pseudomonas sensitive to ciprofloxacin. Started on Cipro today DC cefdinir for now. Patient has been accepted for long-term care but given needs for ciprofloxacin atrial fibrillation will need to be monitored on telemetry while receiving ciprofloxacin. Per his brother there is no water or gas or telephone service at their home. COVID-19 rapid came positive later in the day. 06/23: Not short of breath not hypoxic bilateral foot pain stable. Tolerating Cipro with no significant appearance he is on telemetry. He was able to stand up on his own to urinate but was not able to take more than 1 step. 06/24: Seen bedside. No shortness of breath or chest pain not hypoxic. Still profoundly weak. Had wound care for his feet. Very constipated. 06/25: Seen bedside. [place] relieved with bowel movement. No shortness of breath or chest pain did have some palpitations with his BM yesterday still very weak. Was able to stand for 10 seconds without assistance today. Awaiting placement 06/26/2021 No acute events overnight. Patient seen and examined bedside. Creatinine improved. Blood pressures in the low normal range. 250 NS bolus given. We will continue to monitor urine output. Continue with PT OT modalities and pending SNF placement after 10 days from COVID positive. Can potentially be placed sooner than that based on CDC guidelines. Vitals/I&O Vitals/I&O: Vital Signs Date Time Temp Pulse Resp B/P (MAP) Pulse Ox O2 Delivery O2 Flow Rate FiO2 06/26/21 09:46 80 122/71 06/26/21 07:00 98.2 17 94 Room Air 98.2 I & O 06/25/21 06/25/21 06/26/21 15:00 23:00 07:00 Intake Total 480 ml Output Total 400 ml 200 ml Balance 80 ml -200 ml Physical Exam General: Alert, Oriented X3, Cooperative, mild distress Heart: Regular rate Lungs: Clear Abdomen: Normal bowel sounds, No tenderness Skin: Other (thick growth on toes, lichenous with scale, ) Labs Labs: Laboratory Tests Test 06/26/21 06:15 Sodium Level 140 mmol/L (136-145) Potassium Level 4.0 mmol/L (3.5-5.1) Chloride Level 105 mmol/L (98-107) Carbon Dioxide Level 29 mmol/L (21-32) Anion Gap 6 (6-14) Blood Urea Nitrogen 33 mg/dL (8-26) Creatinine 1.9 mg/dL (0.7-1.3) Estimated GFR (Cockcroft-Gault) 35.0 Glucose Level 80 mg/dL (70-99) Calcium Level 8.2 mg/dL (8.5-10.1) Assessment and Plan Assessmemt and Plan Problems Medical Problems: (1) Acute renal failure Status: Acute (2) Chest pain Status: Acute (3) Hypotension Status: Acute (4) Unable to care for self Status: Acute Comment Review of Relevant I have reviewed the following items marlene (where applicable) has been applied. Medications: Current Medications Medications (Trade) Dose Ordered Sig/Placido Route PRN Reason Start Time Stop Time Status Last Admin Dose Admin Sodium Chloride 1,000 ml @ 250 mls/hr 1X ONCE IV 06/26/21 08:30 06/26/21 12:29 06/26/21 09:49 Justifications for Admission Other Justification JULIO MCCRARY MD Jun 26, 2021 11:00
--- NOTE | 2021-06-26 13:09 | NUR ---
NURSING NOTE Pt care assumed at this time. Pt is A/Ox4, denies pain or needs at this time. Pt refuses to turn in bed, remains supine in bed. Education on pressure ulcer prevention discussed with pt, still declines. Call light in reach. Will monitor.
[2021-06-26 15:00] VITALS: BP 120/65
--- NOTE | 2021-06-26 15:28 | PDOC ---
CARDIOLOGY PROGRESS NOTE SUBJECTIVE: No new events overnight. Denies any chest pain. OBJECTIVE: Vital Signs/I&O: Vital Signs Date Time Temp Pulse Resp B/P (MAP) Pulse Ox O2 Delivery O2 Flow Rate FiO2 06/26/21 15:00 97.4 75 18 120/65 (83) 98 Room Air 97.4 I & O 06/25/21 06/25/21 06/26/21 15:00 23:00 07:00 Intake Total 480 ml Output Total 400 ml 200 ml Balance 80 ml -200 ml Objective: Objective: The patient appeared well nourished and normally developed. Head exam is unremarkable. No scleral icterus or corneal arcus noted. Neck is without jugular venous distension, thyromegaly, or carotid bruits. Carotid upstrokes are brisk bilaterally. Lungs are clear to auscultation and percussion. Cardiac exam reveals the PMI to be normally sized and situated. Rhythm is regular. First and second heart sounds normal. No murmurs, rubs or gallops. Abdominal exam reveals normal bowel sounds, no masses, no organomegaly and no aortic enlargement. Extremities are nonedematous with normal radial pulses, diminished pedal pulses, chronic lymphedema changes. Msk: No traumua Neuro: No focal deficits CURRENT MEDICATIONS: Aspirin, Lasix, metoprolol, apixaban and amiodarone DIAGNOSTIC TESTING: labs reviewed. Labs: Cr 1.9 ASSESSMENT: 1. Chest pain, atypical. AMI ruled out. 2. Mild acute on chronic diastolic CHF; Echo 06/24 with preserved LV systolic function. appears compensated 3. ANTWAN on CKD; Cr improved 4. CAD: moderate, one-vessel disease per cath 2017 5. PPM in situ: (Biotronik). Recent device check with normal function. AFIB burden is 0. normal device. 7 yrs battery per interrogation. No significant arrhythmia. 6. PAFIB: SR 7. HTN: controlled 8. HLP: statin 9. PAD with chronic lymphedema: LE wounds - stable. No new changes. Aortogram in 03/2021 with no significant above knee disease. R AT occlusion. 10. Hypothyroidism: recent TSH 17 11. COVID + PLAN: 1. Continue supportive care. No new CV recs. Continue present meds and anticoagulation. Awaiting placement. Thanks CURRENT MEDICATIONS: Current Medications Medications (Trade) Dose Ordered Sig/Placido Route PRN Reason Start Time Stop Time Status Last Admin Dose Admin Sodium Chloride 1,000 ml @ 250 mls/hr 1X ONCE IV 06/26/21 08:30 06/26/21 12:29 DC 06/26/21 09:49 DIAGNOSTIC TESTING: Labs: Laboratory Tests 06/26/21 06:15 Laboratory Tests Test 06/26/21 06:15 Sodium Level 140 mmol/L (136-145) Potassium Level 4.0 mmol/L (3.5-5.1) Chloride Level 105 mmol/L (98-107) Carbon Dioxide Level 29 mmol/L (21-32) Anion Gap 6 (6-14) Blood Urea Nitrogen 33 mg/dL (8-26) H Creatinine 1.9 mg/dL (0.7-1.3) H Estimated GFR (Cockcroft-Gault) 35.0 Glucose Level 80 mg/dL (70-99) Calcium Level 8.2 mg/dL (8.5-10.1) L Justicifation of Admission Dx: Justifications for Admission: Justification of Admission Dx: No MATY DIAZ MD Jun 26, 2021 15:28
[2021-06-26 19:00] VITALS: BP 103/65
[2021-06-26] MEDS: LATANOPROST 0.005% OPHTH SOLUTION 2.5ML BOTTLE. OU SCH (21:00)
[2021-06-26] MEDS: ZOLPIDEM 5 MG TABLET. PO PRN (22:37)
[2021-06-26] MEDS: ATORVASTATIN CALCIUM 20 MG TABLET PO SCH (22:37)
[2021-06-26] MEDS: PSYLLIUM HUSK (SUGAR FREE) 1 PKT PACKET PO SCH (22:37)
[2021-06-26] MEDS: oxyCODONE/APAP 5/325 1 TAB TABLET PO PRN (22:37)
[2021-06-26 23:00] VITALS: BP 116/68
[2021-06-27 03:16] VITALS: BP 105/64
[2021-06-27 07:00] VITALS: BP 128/78
[2021-06-27 07:11] LABS: CALCIUM 8.2 mg/dL (8.5-10.1); CREATININE 1.8 mg/dL (0.7-1.3); GFR 37.3; POTASSIUM 3.7 mmol/L (3.5-5.1)
[2021-06-27] MEDS: AMMONIUM LACTATE 12% TOPICAL LOTION 225GM BOTTLE. TP SCH ×2 (09:00→20:02)
[2021-06-27] MEDS: ASPIRIN ENTERIC COATED 81 MG TABLET.DR. PO SCH (09:17)
[2021-06-27] MEDS: CIPROFLOXACIN HCL 250 MG TABLET. PO SCH ×2 (09:17→20:36)
[2021-06-27] MEDS: METOPROLOL TART IMMED RELEASE 25 MG TABLET. PO SCH ×2 (09:17→20:36)
[2021-06-27] MEDS: APIXABAN 5 MG TABLET. PO SCH ×2 (09:17→20:37)
[2021-06-27] MEDS: FUROSEMIDE 40 MG TABLET. PO SCH (09:18)
[2021-06-27] MEDS: AMIODARONE HCL 200 MG TABLET. PO SCH (09:18)
[2021-06-27] MEDS: LACTOBACILLUS RHAMNOSUS GG 1 CAPSULE. PO SCH ×2 (09:18→20:35)
[2021-06-27] MEDS: POLYETHYLENE GLYCOL 3350 17 GM PACKET. PO SCH (09:18)
[2021-06-27] MEDS: BRIMONIDINE 0.2% OPHTH SOLUTION 5ML BOTTLE. OU SCH ×2 (09:30→20:00)
[2021-06-27] MEDS: TIMOLOL 0.5% OPHTH SOLUTION 5ML BOTTLE. OU SCH ×2 (09:30→20:01)
--- NOTE | 2021-06-27 10:24 | NUR ---
SW following. Chart reviewed, pt will discharge to [facility] on 07/01 after 10 day post COVID positive. SW will continue to follow.
[2021-06-27 11:00] VITALS: BP 102/59
--- NOTE | 2021-06-27 11:00 | PDOC ---
DATE OF SERVICE DATE: 06/27/21 TIME: 10:57 SUBJECTIVE ROS stable OBJECTIVE Vital Signs Vital Signs Date Time Temp Pulse Resp B/P (MAP) Pulse Ox O2 Delivery O2 Flow Rate FiO2 06/27/21 09:18 73 128/78 06/27/21 08:00 Room Air 06/27/21 07:00 97.9 20 95 97.9 I & 0 Intake and Output 06/27/21 07:00 Intake Total 1000 ml Output Total 2855 ml Balance -1855 ml IV Total 1000 ml Output Urine Total 2855 ml PHYSICAL EXAM Physical Exam GENERAL:NAD NECK: Supple, no JVD, no thyromegaly was noted. LUNGS: decreased breath sounds at bases HEART: RRR, S1, S2 present. ABDOMEN: Soft, nontender. Positive bowel sounds EXTREMITIES: LE Lymphedema NEUROLOGIC:Grossly normal SKIN: severe hyperkeratotic lesions on the lower extremities. No rebollar, No CVA or SP tenderness DIAGNOSIS/ASSESSMENT Assessment & Plan ANTWAN- resolved, Creatinine nback to his baseline 2.5-->1.8;Renal US Sonographically unremarkable kidneys,. Maintain fluid balance, supportive care, Avoid Nephrotoxins . CKD stage 3 B- Baseline Cr 1.6-1.8; Advised to follow with us after DC (Routine ) coronary artery disease- stable Leg Pain - per primary UTI- Pseudomonas UTI - low colony count, now on Cipro for 10 days per Primary Plan to dc to [facility] on 07/01 after 10 day post COVID positive. COMMENT/RELEVANT DATA Meds Current Medications Medications (Trade) Dose Ordered Sig/Placido Start Time Stop Time Status Last Admin Dose Admin Acetaminophen (Tylenol) 650 mg PRN Q6HRS PRN 06/18/21 17:30 Amiodarone HCl (Cordarone) 200 mg DAILY 06/19/21 09:00 06/27/21 09:18 200 MG Apixaban (Eliquis) 5 mg BID 06/18/21 21:00 06/27/21 09:17 5 MG Aspirin (Ecotrin) 81 mg DAILY 06/19/21 09:00 06/27/21 09:17 81 MG Atorvastatin Calcium (Lipitor) 20 mg QHS 06/18/21 21:00 06/26/21 22:37 20 MG Brimonidine Tartrate (Alphagan) 1 drop BID 06/19/21 13:00 06/27/21 09:30 1 DROP Cefdinir (Omnicef) 300 mg BID 06/18/21 21:00 06/22/21 10:37 DC 06/22/21 08:34 300 MG Ciprofloxacin (Cipro) 250 mg BID 06/22/21 21:00 07/02/21 20:59 06/27/21 09:17 250 MG Ciprofloxacin/ Dextrose 200 ml @ 200 mls/hr 1X ONCE 06/22/21 11:00 06/22/21 11:59 DC 06/22/21 10:51 200 MLS/HR Furosemide (Lasix) 40 mg DAILY 06/19/21 09:00 06/27/21 09:18 40 MG Lactic Acid (Lac-Hydrin) 1 phyllis BID 06/20/21 10:00 06/27/21 09:00 1 PHYLLIS Lactobacillus Rhamnosus (Culturelle) 1 cap BID 06/18/21 21:00 06/27/21 09:18 1 CAP Latanoprost (Xalatan) 1 drop QHS 06/18/21 21:00 06/26/21 21:00 1 DROP Metoprolol Tartrate (Lopressor) 25 mg BID 06/18/21 21:00 06/27/21 09:17 25 MG Nitroglycerin (Nitrostat) 0.4 mg PRN Q5MIN PRN 06/18/21 12:15 Oxycodone/ Acetaminophen (Percocet 5/325) 1 tab PRN Q4HRS PRN 06/19/21 17:30 06/26/21 22:37 1 TAB Polyethylene Glycol (miraLAX PACKET) 17 gm DAILY 06/24/21 12:45 06/27/21 09:18 17 GM Psyllium Hydrophilic Mucilloid (Metamucil Fiber Packet) 1 pkt QHS 06/24/21 21:00 06/26/21 22:37 1 PKT Senna/Docusate Sodium (Senna Plus) 2 tab PRN BID PRN 06/24/21 12:45 Sodium Chloride 1,000 ml @ 250 mls/hr 1X ONCE 06/26/21 08:30 06/26/21 12:29 DC 06/26/21 09:49 250 MLS/HR Timolol Maleate (Timoptic 0.5% [facility]) 1 drop BID 06/19/21 13:00 06/27/21 09:30 1 DROP Zolpidem Tartrate (Ambien) 5 mg PRN QHS PRN 06/18/21 17:30 06/26/21 22:37 5 MG Lab Laboratory Tests Test 06/27/21 04:45 Sodium Level 144 mmol/L (136-145) Potassium Level 3.7 mmol/L (3.5-5.1) Chloride Level 107 mmol/L (98-107) Carbon Dioxide Level 27 mmol/L (21-32) Anion Gap 10 (6-14) Blood Urea Nitrogen 26 mg/dL (8-26) Creatinine 1.8 mg/dL (0.7-1.3) Estimated GFR (Cockcroft-Gault) 37.3 Glucose Level 78 mg/dL (70-99) Calcium Level 8.2 mg/dL (8.5-10.1) Results All relevant outside records, renal labs, imaging studies, telemetry/EKG's were reviewed. Justicifation of Admission Dx: Justifications for Admission: Justification of Admission Dx: FREDI Carr MD Jun 27, 2021 11:00
--- NOTE | 2021-06-27 11:43 | PDOC ---
DORIS CHRISTIAN BUSINESS PROCESS REPRESENTATIVE 06/27/21 1143: CARDIO Progress Notes Date and Time Date of Service 06/27/21 Time of Evaluation 1140 Subjective Subjective: No Chest Pain, No shortness of breath, No Palpitations, No Dizziness Vitals Vitals Vital Signs Date Time Temp Pulse Resp B/P (MAP) Pulse Ox O2 Delivery O2 Flow Rate FiO2 06/27/21 09:18 73 128/78 06/27/21 08:00 Room Air 06/27/21 07:00 97.9 20 95 97.9 Weight Weight [ ] Input and Output Intake and Output Intake and Output 06/27/21 07:00 Intake Total 1000 ml Output Total 2855 ml Balance -1855 ml IV Total 1000 ml Output Urine Total 2855 ml Laboratory Labs Laboratory Tests Test 06/27/21 04:45 Sodium Level 144 mmol/L (136-145) Potassium Level 3.7 mmol/L (3.5-5.1) Chloride Level 107 mmol/L (98-107) Carbon Dioxide Level 27 mmol/L (21-32) Anion Gap 10 (6-14) Blood Urea Nitrogen 26 mg/dL (8-26) Creatinine 1.8 mg/dL (0.7-1.3) Estimated GFR (Cockcroft-Gault) 37.3 Glucose Level 78 mg/dL (70-99) Calcium Level 8.2 mg/dL (8.5-10.1) Microbiology Micro Microbiology 06/19/21 Urine Culture - Final, Complete 06/19/21 Antimicrobic Susceptibility - Final, Complete Physical Exam HEENT: Neck Supple W Full Motion Chest: Symmetric LUNGS: Clear to Auscultation Heart: RRR Abdomen: Soft N/T Extremities: Other (trace bilateral LE edema.) Neurology: alert, oriented, follow commands Assessment Assessment 1. Chest pain, atypical. AMI ruled out. 2. Mild acute on chronic diastolic CHF; Echo 06/24 with preserved LV systolic function. appears compensated 3. ANTWAN on CKD; Cr improved 4. CAD: moderate, one-vessel disease per cath 2017 5. PPM in situ: (Biotronik). Recent device check with normal function. AFIB burden is 0. normal device. 7 yrs battery per interrogation. No significant arrhythmia. 6. PAFIB: SR 7. HTN: controlled 8. HLP: statin 9. PAD with chronic lymphedema: LE wounds stable. Aortogram in 03/2021 with no significant above knee disease. R AT occlusion 10. Hypothyroidism: recent TSH 17 11. COVID + Recommendations Lasix therapy Continue metoprolol for rate control and amiodarone for rhythm maintenance Eliquis for stroke prophylaxis. Secondary prevention Supportive care Consider outpatient ischemic evaluation Awaiting placement Justicifation of Admission Dx: Justifications for Admission: Justification of Admission Dx: No MATY DIAZ MD 06/28/21 0758: CARDIO Progress Notes Plan Plan Late entry for 06/27/2021 Patient seen and examined. Supportive care. Agree with above nurse practitioner note. DORIS CHRISTIAN APRN Jun 27, 2021 11:43 MATY DIAZ MD Jun 28, 2021 07:58
--- NOTE | 2021-06-27 13:43 | PDOC ---
[employer] PROGRESS NOTE Date of Service DOS: DATE: 06/27/21 TIME: 13:40 Chief Complaint Chief Complaint Chest pain, angina, stable Pseudomonas UTI - low colony count, however in male likely prostate involvement, will need at least 10 days treatment with cipro Known coronary artery disease acute on chronic renal failure Leg pain, acute on chronic, he says he cant walk, needs PT and OT Chronic right fifth metatarsal nonhealing wound, Foot xray suggests osteomyelitis right 5th metatarsal bone,concern for adequate healing with exposed bone PAD Chronic right plantar ulcerations, Chronic lymphedema, chronic venous stasis, atrial fibrillation,status post PPM, CHF, hypertension, hyperlipidemia, osteoarthritis, History of glaucoma chest pain, elevated troponin poa, self-care deficit. 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 Came to ED c/o chest pain, unable to walk. Stable. No shortness of breath not hypoxic 06/19: Pt and ot. renal following. cont other 06/20: Cr improved to 1.8. Still very weak. No chest pain currently. Notably with gluteal bilateral foot wounds. 06/21: Cr 1.7. Still feels weak. No chest pain currently. Getting foot wound and gluteal wound care. 06/22: Stable. Still weak. Feels little more foot pain today. Urine culture returned with Pseudomonas sensitive to ciprofloxacin. Started on Cipro today DC cefdinir for now. Patient has been accepted for long-term care but given needs for ciprofloxacin atrial fibrillation will need to be monitored on telemetry while receiving ciprofloxacin. Per his brother there is no water or gas or telephone service at their home. COVID-19 rapid came positive later in the day. 06/23: Not short of breath not hypoxic bilateral foot pain stable. Tolerating Cipro with no significant appearance he is on telemetry. He was able to stand up on his own to urinate but was not able to take more than 1 step. 06/24: Seen bedside. No shortness of breath or chest pain not hypoxic. Still profoundly weak. Had wound care for his feet. Very constipated. 06/25: Seen bedside. [place] relieved with bowel movement. No shortness of breath or chest pain did have some palpitations with his BM yesterday still very weak. Was able to stand for 10 seconds without assistance today. Awaiting placement 06/26/2021 No acute events overnight. Patient seen and examined bedside. Creatinine improved. Blood pressures in the low normal range. 250 NS bolus given. We will continue to monitor urine output. Continue with PT OT modalities and pending SNF placement after 10 days from COVID positive. Can potentially be placed sooner than that based on CDC guidelines. 06/27/2021 No acute events overnight. Patient seen examined bedside. Saturating 95% on room air. Still on ciprofloxacin for his UTI. Creatinine stable at 1.9 patient's chart, labs, images were reviewed and discussed with RN. Pending SNF placement by July 01 Vitals/I&O Vitals/I&O: Vital Signs Date Time Temp Pulse Resp B/P (MAP) Pulse Ox O2 Delivery O2 Flow Rate FiO2 06/27/21 11:00 97.6 73 20 102/59 (73) 92 Room Air 97.6 I & O 06/26/21 06/26/21 06/27/21 15:00 23:00 07:00 Intake Total 1000 ml Output Total 1680 ml 600 ml 575 ml Balance -680 ml -600 ml -575 ml Physical Exam General: Alert, Oriented X3, Cooperative, mild distress Heart: Regular rate Lungs: Clear Abdomen: Normal bowel sounds, No tenderness Skin: Other (thick growth on toes, lichenous with scale, ) Labs Labs: Laboratory Tests Test 06/27/21 04:45 Sodium Level 144 mmol/L (136-145) Potassium Level 3.7 mmol/L (3.5-5.1) Chloride Level 107 mmol/L (98-107) Carbon Dioxide Level 27 mmol/L (21-32) Anion Gap 10 (6-14) Blood Urea Nitrogen 26 mg/dL (8-26) Creatinine 1.8 mg/dL (0.7-1.3) Estimated GFR (Cockcroft-Gault) 37.3 Glucose Level 78 mg/dL (70-99) Calcium Level 8.2 mg/dL (8.5-10.1) Assessment and Plan Assessmemt and Plan Problems Medical Problems: (1) Acute renal failure Status: Acute (2) Chest pain Status: Acute (3) Hypotension Status: Acute (4) Unable to care for self Status: Acute Comment Review of Relevant I have reviewed the following items marlene (where applicable) has been applied. Justifications for Admission Other Justification JULIO MCCRARY MD Jun 27, 2021 13:43
[2021-06-27 15:00] VITALS: BP 96/55
--- NOTE | 2021-06-27 16:25 | NUR ---
Wound Care Pt seen for wound care follow up. Pt up to chair, working with OT. Pt's skin assessed, dry, peeling skin on legs and feet are improved, no open areas noted, and bilateral buttocks areas are resolved, no other wounds noted. Wheelchair cushion ordered for pt to use while in the recliner. Wound care will sign off at this time.
[2021-06-27 19:06] VITALS: BP 111/67
[2021-06-27] MEDS: LATANOPROST 0.005% OPHTH SOLUTION 2.5ML BOTTLE. OU SCH (20:01)
[2021-06-27] MEDS: ZOLPIDEM 5 MG TABLET. PO PRN (20:35)
[2021-06-27] MEDS: PSYLLIUM HUSK (SUGAR FREE) 1 PKT PACKET PO SCH (20:35)
[2021-06-27] MEDS: ATORVASTATIN CALCIUM 20 MG TABLET PO SCH (20:36)
[2021-06-27] MEDS: oxyCODONE/APAP 5/325 1 TAB TABLET PO PRN (20:36)
[2021-06-27 22:41] VITALS: BP 116/68
[2021-06-28 02:44] VITALS: BP 104/59
[2021-06-28 07:00] VITALS: BP 138/72
[2021-06-28] MEDS: LACTOBACILLUS RHAMNOSUS GG 1 CAPSULE. PO SCH ×2 (09:18→21:17)
[2021-06-28] MEDS: AMIODARONE HCL 200 MG TABLET. PO SCH (09:18)
[2021-06-28] MEDS: FUROSEMIDE 40 MG TABLET. PO SCH (09:18)
[2021-06-28] MEDS: APIXABAN 5 MG TABLET. PO SCH ×2 (09:18→21:18)
[2021-06-28] MEDS: METOPROLOL TART IMMED RELEASE 25 MG TABLET. PO SCH ×2 (09:19→21:38)
[2021-06-28] MEDS: BRIMONIDINE 0.2% OPHTH SOLUTION 5ML BOTTLE. OU SCH ×2 (09:19→21:24)
[2021-06-28] MEDS: AMMONIUM LACTATE 12% TOPICAL LOTION 225GM BOTTLE. TP SCH ×2 (09:19→21:24)
[2021-06-28] MEDS: CIPROFLOXACIN HCL 250 MG TABLET. PO SCH ×2 (09:19→21:17)
[2021-06-28] MEDS: ASPIRIN ENTERIC COATED 81 MG TABLET.DR. PO SCH (09:19)
[2021-06-28] MEDS: TIMOLOL 0.5% OPHTH SOLUTION 5ML BOTTLE. OU SCH ×2 (09:19→21:24)
[2021-06-28] MEDS: POLYETHYLENE GLYCOL 3350 17 GM PACKET. PO SCH (09:20)
--- NOTE | 2021-06-28 09:51 | PDOC ---
DATE OF SERVICE DATE: 06/28/21 TIME: 09:51 SUBJECTIVE ROS stable OBJECTIVE Vital Signs Vital Signs Date Time Temp Pulse Resp B/P (MAP) Pulse Ox O2 Delivery O2 Flow Rate FiO2 06/28/21 09:19 73 138/72 06/28/21 07:00 97.7 19 94 Room Air 97.7 I & 0 Intake and Output 06/28/21 07:00 Intake Total 1080 ml Output Total 1300 ml Balance -220 ml Intake Oral 1080 ml Output Urine Total 1300 ml PHYSICAL EXAM Physical Exam GENERAL:NAD NECK: Supple, no JVD, no thyromegaly was noted. LUNGS: decreased breath sounds at bases HEART: RRR, S1, S2 present. ABDOMEN: Soft, nontender. Positive bowel sounds EXTREMITIES: LE Lymphedema NEUROLOGIC:Grossly normal SKIN: severe hyperkeratotic lesions on the lower extremities. No rebollar, No CVA or SP tenderness DIAGNOSIS/ASSESSMENT Assessment & Plan ANTWAN- resolved, Creatinine nback to his baseline 2.5-->1.8;Renal US Sonographically unremarkable kidneys,. Maintain fluid balance, supportive care, Avoid Nephrotoxins . CKD stage 3 B- Baseline Cr 1.6-1.8; Advised to follow with us after DC (Routine ) coronary artery disease- stable Leg Pain - per primary UTI- Pseudomonas UTI - low colony count, now on Cipro for 10 days per Primary Plan to dc to [facility] on 07/01 after 10 day post COVID positive. COMMENT/RELEVANT DATA Meds Current Medications Medications (Trade) Dose Ordered Sig/Placido Start Time Stop Time Status Last Admin Dose Admin Acetaminophen (Tylenol) 650 mg PRN Q6HRS PRN 06/18/21 17:30 Amiodarone HCl (Cordarone) 200 mg DAILY 06/19/21 09:00 06/28/21 09:18 200 MG Apixaban (Eliquis) 5 mg BID 06/18/21 21:00 06/28/21 09:18 5 MG Aspirin (Ecotrin) 81 mg DAILY 06/19/21 09:00 06/28/21 09:19 81 MG Atorvastatin Calcium (Lipitor) 20 mg QHS 06/18/21 21:00 06/27/21 20:36 20 MG Brimonidine Tartrate (Alphagan) 1 drop BID 06/19/21 13:00 06/28/21 09:19 1 DROP Cefdinir (Omnicef) 300 mg BID 06/18/21 21:00 06/22/21 10:37 DC 06/22/21 08:34 300 MG Ciprofloxacin (Cipro) 250 mg BID 06/22/21 21:00 07/02/21 20:59 06/28/21 09:19 250 MG Ciprofloxacin/ Dextrose 200 ml @ 200 mls/hr 1X ONCE 06/22/21 11:00 06/22/21 11:59 DC 06/22/21 10:51 200 MLS/HR Furosemide (Lasix) 40 mg DAILY 06/19/21 09:00 06/28/21 09:18 40 MG Lactic Acid (Lac-Hydrin) 1 phyllis BID 06/20/21 10:00 06/28/21 09:19 1 PHYLLIS Lactobacillus Rhamnosus (Culturelle) 1 cap BID 06/18/21 21:00 06/28/21 09:18 1 CAP Latanoprost (Xalatan) 1 drop QHS 06/18/21 21:00 06/27/21 20:01 1 DROP Metoprolol Tartrate (Lopressor) 25 mg BID 06/18/21 21:00 06/28/21 09:19 25 MG Nitroglycerin (Nitrostat) 0.4 mg PRN Q5MIN PRN 06/18/21 12:15 Oxycodone/ Acetaminophen (Percocet 5/325) 1 tab PRN Q4HRS PRN 06/19/21 17:30 06/27/21 20:36 1 TAB Polyethylene Glycol (miraLAX PACKET) 17 gm DAILY 06/24/21 12:45 06/28/21 09:20 17 GM Psyllium Hydrophilic Mucilloid (Metamucil Fiber Packet) 1 pkt QHS 06/24/21 21:00 06/27/21 20:35 1 PKT Senna/Docusate Sodium (Senna Plus) 2 tab PRN BID PRN 06/24/21 12:45 Sodium Chloride 1,000 ml @ 250 mls/hr 1X ONCE 06/26/21 08:30 06/26/21 12:29 DC 06/26/21 09:49 250 MLS/HR Timolol Maleate (Timoptic 0.5% [facility]) 1 drop BID 06/19/21 13:00 06/28/21 09:19 1 DROP Zolpidem Tartrate (Ambien) 5 mg PRN QHS PRN 06/18/21 17:30 06/27/21 20:35 5 MG Results All relevant outside records, renal labs, imaging studies, telemetry/EKG's were reviewed. Justicifation of Admission Dx: Justifications for Admission: Justification of Admission Dx: FREDI Carr MD Jun 28, 2021 09:51
[2021-06-28 11:00] VITALS: BP 85/47
--- NOTE | 2021-06-28 13:55 | PDOC ---
[employer] PROGRESS NOTE Date of Service DOS: DATE: 06/28/21 TIME: 13:54 Chief Complaint Chief Complaint Chest pain, angina, stable Pseudomonas UTI - low colony count, however in male likely prostate involvement, will need at least 10 days treatment with cipro Known coronary artery disease acute on chronic renal failure Leg pain, acute on chronic, he says he cant walk, needs PT and OT Chronic right fifth metatarsal nonhealing wound, Foot xray suggests osteomyelitis right 5th metatarsal bone,concern for adequate healing with exposed bone PAD Chronic right plantar ulcerations, Chronic lymphedema, chronic venous stasis, atrial fibrillation,status post PPM, CHF, hypertension, hyperlipidemia, osteoarthritis, History of glaucoma chest pain, elevated troponin poa, self-care deficit. 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 Came to ED c/o chest pain, unable to walk. Stable. No shortness of breath not hypoxic 06/19: Pt and ot. renal following. cont other 06/20: Cr improved to 1.8. Still very weak. No chest pain currently. Notably with gluteal bilateral foot wounds. 06/21: Cr 1.7. Still feels weak. No chest pain currently. Getting foot wound and gluteal wound care. 06/22: Stable. Still weak. Feels little more foot pain today. Urine culture returned with Pseudomonas sensitive to ciprofloxacin. Started on Cipro today DC cefdinir for now. Patient has been accepted for long-term care but given needs for ciprofloxacin atrial fibrillation will need to be monitored on telemetry while receiving ciprofloxacin. Per his brother there is no water or gas or telephone service at their home. COVID-19 rapid came positive later in the day. 06/23: Not short of breath not hypoxic bilateral foot pain stable. Tolerating Cipro with no significant appearance he is on telemetry. He was able to stand up on his own to urinate but was not able to take more than 1 step. 06/24: Seen bedside. No shortness of breath or chest pain not hypoxic. Still profoundly weak. Had wound care for his feet. Very constipated. 06/25: Seen bedside. [place] relieved with bowel movement. No shortness of breath or chest pain did have some palpitations with his BM yesterday still very weak. Was able to stand for 10 seconds without assistance today. Awaiting placement 06/26/2021 No acute events overnight. Patient seen and examined bedside. Creatinine improved. Blood pressures in the low normal range. 250 NS bolus given. We will continue to monitor urine output. Continue with PT OT modalities and pending SNF placement after 10 days from COVID positive. Can potentially be placed sooner than that based on CDC guidelines. 06/27/2021 No acute events overnight. Patient seen examined bedside. Saturating 95% on room air. Still on ciprofloxacin for his UTI. Creatinine stable at 1.9 patient's chart, labs, images were reviewed and discussed with RN. Pending SNF placement by July 01 06/28/2021 No acute events overnight. Patient seen examined bedside. AF and VSS. Not dyspneic or having any pain. Patient's chart, labs, images were reviewed and discussed with RN Vitals/I&O Vitals/I&O: Vital Signs Date Time Temp Pulse Resp B/P (MAP) Pulse Ox O2 Delivery O2 Flow Rate FiO2 06/28/21 11:00 97.6 58 19 85/47 (60) 95 Room Air 97.6 I & O 06/27/21 06/27/21 06/28/21 15:00 23:00 07:00 Intake Total 480 ml 600 ml Output Total 600 ml 700 ml Balance 480 ml 0 ml -700 ml Physical Exam General: Alert, Oriented X3, Cooperative, mild distress Heart: Regular rate Lungs: Clear Abdomen: Normal bowel sounds, No tenderness Skin: Other (thick growth on toes, lichenous with scale, ) Assessment and Plan Assessmemt and Plan Problems Medical Problems: (1) Acute renal failure Status: Acute (2) Chest pain Status: Acute (3) Hypotension Status: Acute (4) Unable to care for self Status: Acute Comment Review of Relevant I have reviewed the following items marlene (where applicable) has been applied. Justifications for Admission Other Justification JULIO MCCRARY MD Jun 28, 2021 13:55
[2021-06-28 15:00] VITALS: BP 99/61
[2021-06-28 19:00] VITALS: BP 119/71
[2021-06-28] MEDS: PSYLLIUM HUSK (SUGAR FREE) 1 PKT PACKET PO SCH (21:18)
[2021-06-28] MEDS: ATORVASTATIN CALCIUM 20 MG TABLET PO SCH (21:18)
[2021-06-28] MEDS: LATANOPROST 0.005% OPHTH SOLUTION 2.5ML BOTTLE. OU SCH (21:34)
[2021-06-28 23:00] VITALS: BP 108/64
[2021-06-29 03:00] VITALS: BP 111/71
[2021-06-29 07:00] VITALS: BP 107/67
[2021-06-29 07:57] LABS: CALCIUM 8.4 mg/dL (8.5-10.1); CREATININE 1.9 mg/dL (0.7-1.3); POTASSIUM 4.3 mmol/L (3.5-5.1)
[2021-06-29] MEDS: AMIODARONE HCL 200 MG TABLET. PO SCH (08:36)
[2021-06-29] MEDS: CIPROFLOXACIN HCL 250 MG TABLET. PO SCH ×2 (08:36→20:24)
[2021-06-29] MEDS: ASPIRIN ENTERIC COATED 81 MG TABLET.DR. PO SCH (08:36)
[2021-06-29] MEDS: LACTOBACILLUS RHAMNOSUS GG 1 CAPSULE. PO SCH ×2 (08:36→20:19)
[2021-06-29] MEDS: APIXABAN 5 MG TABLET. PO SCH ×2 (08:36→20:24)
[2021-06-29] MEDS: POLYETHYLENE GLYCOL 3350 17 GM PACKET. PO SCH (08:37)
[2021-06-29] MEDS: AMMONIUM LACTATE 12% TOPICAL LOTION 225GM BOTTLE. TP SCH ×2 (08:37→20:44)
[2021-06-29] MEDS: TIMOLOL 0.5% OPHTH SOLUTION 5ML BOTTLE. OU SCH ×2 (08:37→20:23)
[2021-06-29] MEDS: FUROSEMIDE 40 MG TABLET. PO SCH (08:37)
[2021-06-29] MEDS: BRIMONIDINE 0.2% OPHTH SOLUTION 5ML BOTTLE. OU SCH ×2 (08:37→20:23)
[2021-06-29] MEDS: METOPROLOL TART IMMED RELEASE 25 MG TABLET. PO SCH ×2 (08:37→20:28)
--- NOTE | 2021-06-29 10:23 | NUR ---
SW following. Discussed with RN, pt can discharge to [facility] on 07/01/21. TRISTIAN verified with [place] at [facility] today that this is still the plan. TRISTIAN will continue to follow.
[2021-06-29 11:00] VITALS: BP 109/70
--- NOTE | 2021-06-29 11:02 | PDOC ---
DATE OF SERVICE DATE: 06/29/21 TIME: 11:00 SUBJECTIVE ROS stable OBJECTIVE Vital Signs Vital Signs Date Time Temp Pulse Resp B/P (MAP) Pulse Ox O2 Delivery O2 Flow Rate FiO2 06/29/21 08:37 66 107/67 06/29/21 08:00 Room Air 06/29/21 07:00 98.5 20 96 98.5 I & 0 Intake and Output 06/29/21 07:00 Intake Total 740 ml Output Total 575 ml Balance 165 ml Intake Oral 740 ml Output Urine Total 575 ml PHYSICAL EXAM Physical Exam GENERAL:NAD NECK: Supple, no JVD, no thyromegaly was noted. LUNGS: decreased breath sounds at bases HEART: RRR, S1, S2 present. ABDOMEN: Soft, nontender. Positive bowel sounds EXTREMITIES: LE Lymphedema NEUROLOGIC:Grossly normal SKIN: severe hyperkeratotic lesions on the lower extremities. No rebollar, No CVA or SP tenderness DIAGNOSIS/ASSESSMENT Assessment & Plan ANTWAN- resolved, Creatinine nback to his baseline 2.5-->1.9;Renal US Sonographically unremarkable kidneys,. Maintain fluid balance, supportive care, Avoid Nephrotoxins . CKD stage 3 B- Baseline Cr 1.6-1.8; Advised to follow with us after DC (Routine ) coronary artery disease- stable Leg Pain - per primary UTI- Pseudomonas UTI - low colony count, now on Cipro for 10 days per Primary Plan to dc to [facility] on 07/01 after 10 day post COVID positive. COMMENT/RELEVANT DATA Meds Current Medications Medications (Trade) Dose Ordered Sig/Placido Start Time Stop Time Status Last Admin Dose Admin Acetaminophen (Tylenol) 650 mg PRN Q6HRS PRN 06/18/21 17:30 Amiodarone HCl (Cordarone) 200 mg DAILY 06/19/21 09:00 06/29/21 08:36 200 MG Apixaban (Eliquis) 5 mg BID 06/18/21 21:00 06/29/21 08:36 5 MG Aspirin (Ecotrin) 81 mg DAILY 06/19/21 09:00 06/29/21 08:36 81 MG Atorvastatin Calcium (Lipitor) 20 mg QHS 06/18/21 21:00 06/28/21 21:18 20 MG Brimonidine Tartrate (Alphagan) 1 drop BID 06/19/21 13:00 06/29/21 08:37 1 DROP Cefdinir (Omnicef) 300 mg BID 06/18/21 21:00 06/22/21 10:37 DC 06/22/21 08:34 300 MG Ciprofloxacin (Cipro) 250 mg BID 06/22/21 21:00 07/02/21 20:59 06/29/21 08:36 250 MG Ciprofloxacin/ Dextrose 200 ml @ 200 mls/hr 1X ONCE 06/22/21 11:00 06/22/21 11:59 DC 06/22/21 10:51 200 MLS/HR Furosemide (Lasix) 40 mg DAILY 06/19/21 09:00 06/29/21 08:37 40 MG Lactic Acid (Lac-Hydrin) 1 phyllis BID 06/20/21 10:00 06/29/21 08:37 1 PHYLLIS Lactobacillus Rhamnosus (Culturelle) 1 cap BID 06/18/21 21:00 06/29/21 08:36 1 CAP Latanoprost (Xalatan) 1 drop QHS 06/18/21 21:00 06/28/21 21:34 1 DROP Metoprolol Tartrate (Lopressor) 25 mg BID 06/18/21 21:00 06/29/21 08:37 25 MG Nitroglycerin (Nitrostat) 0.4 mg PRN Q5MIN PRN 06/18/21 12:15 Oxycodone/ Acetaminophen (Percocet 5/325) 1 tab PRN Q4HRS PRN 06/19/21 17:30 06/27/21 20:36 1 TAB Polyethylene Glycol (miraLAX PACKET) 17 gm DAILY 06/24/21 12:45 06/29/21 08:37 17 GM Psyllium Hydrophilic Mucilloid (Metamucil Fiber Packet) 1 pkt QHS 06/24/21 21:00 06/28/21 21:18 1 PKT Senna/Docusate Sodium (Senna Plus) 2 tab PRN BID PRN 06/24/21 12:45 Sodium Chloride 1,000 ml @ 250 mls/hr 1X ONCE 06/26/21 08:30 06/26/21 12:29 DC 06/26/21 09:49 250 MLS/HR Timolol Maleate (Timoptic 0.5% [facility]) 1 drop BID 06/19/21 13:00 06/29/21 08:37 1 DROP Zolpidem Tartrate (Ambien) 5 mg PRN QHS PRN 06/18/21 17:30 06/27/21 20:35 5 MG Lab Laboratory Tests Test 06/29/21 06:40 Sodium Level 142 mmol/L (136-145) Potassium Level 4.3 mmol/L (3.5-5.1) Chloride Level 105 mmol/L (98-107) Carbon Dioxide Level 28 mmol/L (21-32) Anion Gap 9 (6-14) Blood Urea Nitrogen 29 mg/dL (8-26) Creatinine 1.9 mg/dL (0.7-1.3) Estimated GFR (Cockcroft-Gault) 35.0 Glucose Level 85 mg/dL (70-99) Calcium Level 8.4 mg/dL (8.5-10.1) Results All relevant outside records, renal labs, imaging studies, telemetry/EKG's were reviewed. Justicifation of Admission Dx: Justifications for Admission: Justification of Admission Dx: FREDI Carr MD Jun 29, 2021 11:02
--- NOTE | 2021-06-29 14:49 | PDOC ---
[employer] PROGRESS NOTE Date of Service DOS: DATE: 06/29/21 TIME: 14:48 Chief Complaint Chief Complaint Chest pain, angina, stable Pseudomonas UTI - low colony count, however in male likely prostate involvement, will need at least 10 days treatment with cipro Known coronary artery disease acute on chronic renal failure Leg pain, acute on chronic, he says he cant walk, needs PT and OT Chronic right fifth metatarsal nonhealing wound, Foot xray suggests osteomyelitis right 5th metatarsal bone,concern for adequate healing with exposed bone PAD Chronic right plantar ulcerations, Chronic lymphedema, chronic venous stasis, atrial fibrillation,status post PPM, CHF, hypertension, hyperlipidemia, osteoarthritis, History of glaucoma chest pain, elevated troponin poa, self-care deficit. 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 Came to ED c/o chest pain, unable to walk. Stable. No shortness of breath not hypoxic 06/19: Pt and ot. renal following. cont other 06/20: Cr improved to 1.8. Still very weak. No chest pain currently. Notably with gluteal bilateral foot wounds. 06/21: Cr 1.7. Still feels weak. No chest pain currently. Getting foot wound and gluteal wound care. 06/22: Stable. Still weak. Feels little more foot pain today. Urine culture returned with Pseudomonas sensitive to ciprofloxacin. Started on Cipro today DC cefdinir for now. Patient has been accepted for long-term care but given needs for ciprofloxacin atrial fibrillation will need to be monitored on telemetry while receiving ciprofloxacin. Per his brother there is no water or gas or telephone service at their home. COVID-19 rapid came positive later in the day. 06/23: Not short of breath not hypoxic bilateral foot pain stable. Tolerating Cipro with no significant appearance he is on telemetry. He was able to stand up on his own to urinate but was not able to take more than 1 step. 06/24: Seen bedside. No shortness of breath or chest pain not hypoxic. Still profoundly weak. Had wound care for his feet. Very constipated. 06/25: Seen bedside. [place] relieved with bowel movement. No shortness of breath or chest pain did have some palpitations with his BM yesterday still very weak. Was able to stand for 10 seconds without assistance today. Awaiting placement 06/26/2021 No acute events overnight. Patient seen and examined bedside. Creatinine improved. Blood pressures in the low normal range. 250 NS bolus given. We will continue to monitor urine output. Continue with PT OT modalities and pending SNF placement after 10 days from COVID positive. Can potentially be placed sooner than that based on CDC guidelines. 06/27/2021 No acute events overnight. Patient seen examined bedside. Saturating 95% on room air. Still on ciprofloxacin for his UTI. Creatinine stable at 1.9 patient's chart, labs, images were reviewed and discussed with RN. Pending SNF placement by July 01 06/28/2021 No acute events overnight. Patient seen examined bedside. AF and VSS. Not dyspneic or having any pain. Patient's chart, labs, images were reviewed and discussed with RN 06/29/21 No acute events overnight. Patient seen examined bedside. No complaints at this time. Saturating 95% on room air. Patient's chart, labs, images were reviewed and discussed with RN . Pending SNF placement Vitals/I&O Vitals/I&O: Vital Signs Date Time Temp Pulse Resp B/P (MAP) Pulse Ox O2 Delivery O2 Flow Rate FiO2 06/29/21 11:00 98.3 63 16 109/70 (83) 97 Room Air 98.3 I & O 06/28/21 06/28/21 06/29/21 15:00 23:00 07:00 Intake Total 360 ml 140 ml 240 ml Output Total 575 ml Balance 360 ml 140 ml -335 ml Physical Exam General: Alert, Oriented X3, Cooperative, mild distress Heart: Regular rate Lungs: Clear Abdomen: Normal bowel sounds, No tenderness Skin: Other (thick growth on toes, lichenous with scale, ) Labs Labs: Laboratory Tests Test 06/29/21 06:40 Sodium Level 142 mmol/L (136-145) Potassium Level 4.3 mmol/L (3.5-5.1) Chloride Level 105 mmol/L (98-107) Carbon Dioxide Level 28 mmol/L (21-32) Anion Gap 9 (6-14) Blood Urea Nitrogen 29 mg/dL (8-26) Creatinine 1.9 mg/dL (0.7-1.3) Estimated GFR (Cockcroft-Gault) 35.0 Glucose Level 85 mg/dL (70-99) Calcium Level 8.4 mg/dL (8.5-10.1) Assessment and Plan Assessmemt and Plan Problems Medical Problems: (1) Acute renal failure Status: Acute (2) Chest pain Status: Acute (3) Hypotension Status: Acute (4) Unable to care for self Status: Acute Comment Review of Relevant I have reviewed the following items marlene (where applicable) has been applied. Justifications for Admission Other Justification JULIO MCCRARY MD Jun 29, 2021 14:49
[2021-06-29 15:00] VITALS: BP 106/61
[2021-06-29 19:00] VITALS: BP 107/64
[2021-06-29] MEDS: ATORVASTATIN CALCIUM 20 MG TABLET PO SCH (20:19)
[2021-06-29] MEDS: LATANOPROST 0.005% OPHTH SOLUTION 2.5ML BOTTLE. OU SCH (20:23)
[2021-06-29] MEDS: PSYLLIUM HUSK (SUGAR FREE) 1 PKT PACKET PO SCH (20:24)
[2021-06-29 23:07] VITALS: BP 90/54
[2021-06-30 03:16] VITALS: BP 101/62
[2021-06-30 07:00] VITALS: BP 109/72
[2021-06-30] MEDS: AMMONIUM LACTATE 12% TOPICAL LOTION 225GM BOTTLE. TP SCH ×2 (08:06→21:27)
[2021-06-30] MEDS: POLYETHYLENE GLYCOL 3350 17 GM PACKET. PO SCH (08:53)
[2021-06-30] MEDS: TIMOLOL 0.5% OPHTH SOLUTION 5ML BOTTLE. OU SCH ×2 (08:53→21:24)
[2021-06-30] MEDS: FUROSEMIDE 40 MG TABLET. PO SCH (08:53)
[2021-06-30] MEDS: BRIMONIDINE 0.2% OPHTH SOLUTION 5ML BOTTLE. OU SCH ×2 (08:53→21:24)
[2021-06-30] MEDS: ASPIRIN ENTERIC COATED 81 MG TABLET.DR. PO SCH (08:53)
[2021-06-30] MEDS: CIPROFLOXACIN HCL 250 MG TABLET. PO SCH ×2 (08:53→21:57)
[2021-06-30] MEDS: LACTOBACILLUS RHAMNOSUS GG 1 CAPSULE. PO SCH ×2 (08:53→21:57)
[2021-06-30] MEDS: AMIODARONE HCL 200 MG TABLET. PO SCH (08:54)
[2021-06-30] MEDS: APIXABAN 5 MG TABLET. PO SCH ×2 (08:54→21:24)
[2021-06-30] MEDS: METOPROLOL TART IMMED RELEASE 25 MG TABLET. PO SCH ×2 (08:54→21:27)
--- NOTE | 2021-06-30 09:39 | PDOC ---
DATE OF SERVICE DATE: 06/30/21 TIME: 09:38 SUBJECTIVE ROS stable , no complaints OBJECTIVE Vital Signs Vital Signs Date Time Temp Pulse Resp B/P (MAP) Pulse Ox O2 Delivery O2 Flow Rate FiO2 06/30/21 08:54 70 109/72 06/30/21 08:00 Room Air 06/30/21 07:00 98.4 16 94 98.4 I & 0 Intake and Output 06/30/21 06:59 Intake Total 700 ml Output Total 500 ml Balance 200 ml Intake Oral 700 ml Output Urine Total 500 ml # Voids 3 PHYSICAL EXAM Physical Exam GENERAL:NAD NECK: Supple, no JVD, no thyromegaly was noted. LUNGS: decreased breath sounds at bases HEART: RRR, S1, S2 present. ABDOMEN: Soft, nontender. Positive bowel sounds EXTREMITIES: LE Lymphedema NEUROLOGIC:Grossly normal SKIN: severe hyperkeratotic lesions on the lower extremities. No rebollar, No CVA or SP tenderness DIAGNOSIS/ASSESSMENT Assessment & Plan ANTWAN- resolved, Creatinine to his baseline 2.5-->1.9;Renal US Sonographically unremarkable kidneys,. Maintain fluid balance, supportive care, Avoid Nephrotoxins . CKD stage 3 B- Baseline Cr 1.6-1.8; Advised to follow with us after DC (Routine ) coronary artery disease- stable Leg Pain - per primary UTI- Pseudomonas UTI - low colony count, now on Cipro for 10 days per Primary Plan to dc to [facility] on 07/01 after 10 day post COVID positive. COMMENT/RELEVANT DATA Meds Current Medications Medications (Trade) Dose Ordered Sig/Placido Start Time Stop Time Status Last Admin Dose Admin Acetaminophen (Tylenol) 650 mg PRN Q6HRS PRN 06/18/21 17:30 Amiodarone HCl (Cordarone) 200 mg DAILY 06/19/21 09:00 06/30/21 08:54 200 MG Apixaban (Eliquis) 5 mg BID 06/18/21 21:00 06/30/21 08:54 5 MG Aspirin (Ecotrin) 81 mg DAILY 06/19/21 09:00 06/30/21 08:53 81 MG Atorvastatin Calcium (Lipitor) 20 mg QHS 06/18/21 21:00 06/29/21 20:19 20 MG Brimonidine Tartrate (Alphagan) 1 drop BID 06/19/21 13:00 06/30/21 08:53 1 DROP Cefdinir (Omnicef) 300 mg BID 06/18/21 21:00 06/22/21 10:37 DC 06/22/21 08:34 300 MG Ciprofloxacin (Cipro) 250 mg BID 06/22/21 21:00 07/02/21 20:59 06/30/21 08:53 250 MG Ciprofloxacin/ Dextrose 200 ml @ 200 mls/hr 1X ONCE 06/22/21 11:00 06/22/21 11:59 DC 06/22/21 10:51 200 MLS/HR Furosemide (Lasix) 40 mg DAILY 06/19/21 09:00 06/30/21 08:53 40 MG Lactic Acid (Lac-Hydrin) 1 phyllis BID 06/20/21 10:00 06/30/21 08:06 1 PHYLLIS Lactobacillus Rhamnosus (Culturelle) 1 cap BID 06/18/21 21:00 06/30/21 08:53 1 CAP Latanoprost (Xalatan) 1 drop QHS 06/18/21 21:00 06/29/21 20:23 1 DROP Metoprolol Tartrate (Lopressor) 25 mg BID 06/18/21 21:00 06/30/21 08:54 25 MG Nitroglycerin (Nitrostat) 0.4 mg PRN Q5MIN PRN 06/18/21 12:15 Oxycodone/ Acetaminophen (Percocet 5/325) 1 tab PRN Q4HRS PRN 06/19/21 17:30 06/27/21 20:36 1 TAB Polyethylene Glycol (miraLAX PACKET) 17 gm DAILY 06/24/21 12:45 06/30/21 08:53 17 GM Psyllium Hydrophilic Mucilloid (Metamucil Fiber Packet) 1 pkt QHS 06/24/21 21:00 06/29/21 20:24 1 PKT Senna/Docusate Sodium (Senna Plus) 2 tab PRN BID PRN 06/24/21 12:45 Sodium Chloride 1,000 ml @ 250 mls/hr 1X ONCE 06/26/21 08:30 06/26/21 12:29 DC 06/26/21 09:49 250 MLS/HR Timolol Maleate (Timoptic 0.5% [facility]) 1 drop BID 06/19/21 13:00 06/30/21 08:53 1 DROP Zolpidem Tartrate (Ambien) 5 mg PRN QHS PRN 06/18/21 17:30 06/27/21 20:35 5 MG Results All relevant outside records, renal labs, imaging studies, telemetry/EKG's were reviewed. Justicifation of Admission Dx: Justifications for Admission: Justification of Admission Dx: FREDI Carr MD Jun 30, 2021 09:39
[2021-06-30 11:00] VITALS: BP 108/68
[2021-06-30] MEDS ORDERED: CIPR250T30 PO (13:37)
--- NOTE | 2021-06-30 13:38 | SNU/HH DC ---
DISCHARGE ORDERS DISCHARGE INFORMATION: DISCHARGE DATE: Jun 30, 2021 FINAL DIAGNOSIS Problems Medical Problems: (1) Acute renal failure Status: Acute (2) Chest pain Status: Acute (3) Hypotension Status: Acute (4) Unable to care for self Status: Acute CONDITION ON DISCHARGE: Stable (CAMPAIGN CONSULTANT CARE) CODE STATUS: Code Status: Full SENIOR CARE: SNF STAY <30 DAYS: No POST DISCHARGE ORDERS: ACTIVITY ORDERS: Activity as tolerated WEIGHT BEARING STATUS: As tolerated BATHING ORDERS: Shower-keep dressing dry DIET AFTER DISCHARGE: Cardiac WOUND/INCISION CARE: Ice to area for comfort, May get incision wet CHECKS AFTER DISCHARGE: CHECKS AFTER DISCHARGE: Check blood press - daily FOLLOW-UP: PHYSICIAN FOLLOW-UP: PCP within 2 weeks of discharge TREATMENT/EQUIPMENT ORDERS: ADAPTIVE EQUIPMENT NEEDED: None Physical Therapy For: Evalulation/Treatment Occupational Therapy For: Evaluation/Treatment DISCHARGE MEDICATIONS: Home Meds Active Scripts Ciprofloxacin Hcl (CIPRO) 250 Mg Tablet, 250 MG PO BID for UTI for 1 Day, #2 TAB Prov:JULIO MCCRARY MD 06/30/21 Furosemide (FUROSEMIDE) 40 Mg Tablet, 40 MG PO BID94 for edema for 30 Days, #60 TAB Prov:VIRGINIE BONILLA MD 06/17/21 Atorvastatin Calcium (ATORVASTATIN CALCIUM) 20 Mg Tablet, 20 MG PO QHS, #30 TAB 2 Refills Prov:VÍCTOR BELL MD 12/04/15 Reported Medications Acetaminophen (TYLENOL) 325 Mg Tablet, 650 MG PO PRN Q6HRS PRN for MILD PAIN / TEMP > 100.3'F, TAB 04/06/21 Lactobacillus Rhamnosus Gg (CULTURELLE) 1 Each Cap.sprink, 1 EACH PO BID for probiotic therapy, CAP 04/06/21 Sennosides/Docusate Sodium (Senna-Docusate Sodium Tablet) 1 Each Tablet, 1 TAB PO BID for stool softerner for 20 Days, #40 TAB 0 Refills 04/06/21 Zolpidem Tartrate (AMBIEN) 5 Mg Tablet, 5 MG PO PRN QHS PRN for INSOMNIA, TAB 0 Refills 04/06/21 Apixaban (ELIQUIS) 5 Mg Tablet, 5 MG PO BID for blood thinner, TAB 04/06/21 Furosemide (FUROSEMIDE) 40 Mg Tablet, 40 MG PO DAILY for diuretic, TAB 04/06/21 Amiodarone Hcl (AMIODARONE HCL) 200 Mg Tablet, 200 MG PO DAILY for Heart, TAB 04/06/21 Metoprolol Tartrate (METOPROLOL TARTRATE) 25 Mg Tablet, 25 MG PO BID for FOR HYPERTENSION, #60 TAB 0 Refills 04/06/21 Aspirin (ASPIRIN EC) 81 Mg Tablet.dr, 1 TAB PO DAILY for heart health, #30 TAB 3 Refills 07/11/19 Brimonidine Tartrate/Timolol (COMBIGAN EYE DROPS) 5 Ml Drops, 5 ML OP BID, DROP 01/23/18 Latanoprost (LATANOPROST) 2.5 Ml Drops, 1 DROP EACHEYE QHS, #7.5 ML 3 Refills 11/30/15 Discontinued Scripts Cefdinir (CEFDINIR) 300 Mg Capsule, 300 MG PO BID for infection for 5 Days, #10 CAP 0 Refills Prov:VIRGINIE BONILLA MD 06/17/21 JULIO MCCRARY MD Jun 30, 2021 13:38
--- NOTE | 2021-06-30 13:40 | PDOC ---
[employer] PROGRESS NOTE Date of Service DOS: DATE: 06/30/21 TIME: 13:39 Chief Complaint Chief Complaint Chest pain, angina, stable Pseudomonas UTI - low colony count, however in male likely prostate involvement, will need at least 10 days treatment with cipro Known coronary artery disease acute on chronic renal failure Leg pain, acute on chronic, he says he cant walk, needs PT and OT Chronic right fifth metatarsal nonhealing wound, Foot xray suggests osteomyelitis right 5th metatarsal bone,concern for adequate healing with exposed bone PAD Chronic right plantar ulcerations, Chronic lymphedema, chronic venous stasis, atrial fibrillation,status post PPM, CHF, hypertension, hyperlipidemia, osteoarthritis, History of glaucoma chest pain, elevated troponin poa, self-care deficit. 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 Came to ED c/o chest pain, unable to walk. Stable. No shortness of breath not hypoxic 06/19: Pt and ot. renal following. cont other 06/20: Cr improved to 1.8. Still very weak. No chest pain currently. Notably with gluteal bilateral foot wounds. 06/21: Cr 1.7. Still feels weak. No chest pain currently. Getting foot wound and gluteal wound care. 06/22: Stable. Still weak. Feels little more foot pain today. Urine culture returned with Pseudomonas sensitive to ciprofloxacin. Started on Cipro today DC cefdinir for now. Patient has been accepted for long-term care but given needs for ciprofloxacin atrial fibrillation will need to be monitored on telemetry while receiving ciprofloxacin. Per his brother there is no water or gas or telephone service at their home. COVID-19 rapid came positive later in the day. 06/23: Not short of breath not hypoxic bilateral foot pain stable. Tolerating Cipro with no significant appearance he is on telemetry. He was able to stand up on his own to urinate but was not able to take more than 1 step. 06/24: Seen bedside. No shortness of breath or chest pain not hypoxic. Still profoundly weak. Had wound care for his feet. Very constipated. 06/25: Seen bedside. [place] relieved with bowel movement. No shortness of breath or chest pain did have some palpitations with his BM yesterday still very weak. Was able to stand for 10 seconds without assistance today. Awaiting placement 06/26/2021 No acute events overnight. Patient seen and examined bedside. Creatinine improved. Blood pressures in the low normal range. 250 NS bolus given. We will continue to monitor urine output. Continue with PT OT modalities and pending SNF placement after 10 days from COVID positive. Can potentially be placed sooner than that based on CDC guidelines. 06/27/2021 No acute events overnight. Patient seen examined bedside. Saturating 95% on room air. Still on ciprofloxacin for his UTI. Creatinine stable at 1.9 patient's chart, labs, images were reviewed and discussed with RN. Pending SNF placement by July 01 06/28/2021 No acute events overnight. Patient seen examined bedside. AF and VSS. Not dyspneic or having any pain. Patient's chart, labs, images were reviewed and discussed with RN 06/29/21 No acute events overnight. Patient seen examined bedside. No complaints at this time. Saturating 95% on room air. Patient's chart, labs, images were reviewed and discussed with RN . Pending SNF placement 06/30/2021 No acute events night. Patient seen examined bedside. No concerns from nursing. Saturating on room air well. Patient's chart, labs, images were reviewed and discussed with RN Vitals/I&O Vitals/I&O: Vital Signs Date Time Temp Pulse Resp B/P (MAP) Pulse Ox O2 Delivery O2 Flow Rate FiO2 06/30/21 11:00 97.8 67 16 108/68 (81) 97 Room Air 97.8 I & O 06/29/21 06/29/21 06/30/21 14:59 22:59 06:59 Intake Total 700 ml Output Total 500 ml Balance 700 ml -500 ml Physical Exam General: Alert, Oriented X3, Cooperative, mild distress Heart: Regular rate Lungs: Clear Abdomen: Normal bowel sounds, No tenderness Skin: Other (thick growth on toes, lichenous with scale, ) Assessment and Plan Assessmemt and Plan Problems Medical Problems: (1) Acute renal failure Status: Acute (2) Chest pain Status: Acute (3) Hypotension Status: Acute (4) Unable to care for self Status: Acute Comment Review of Relevant I have reviewed the following items marlene (where applicable) has been applied. Justifications for Admission Other Justification JULIO MCCRARY MD Jun 30, 2021 13:40
[2021-06-30 15:00] VITALS: BP 103/62
[2021-06-30] MEDS: PSYLLIUM HUSK (SUGAR FREE) 1 PKT PACKET PO SCH (21:24)
[2021-06-30] MEDS: LATANOPROST 0.005% OPHTH SOLUTION 2.5ML BOTTLE. OU SCH (21:24)
[2021-06-30] MEDS: ATORVASTATIN CALCIUM 20 MG TABLET PO SCH (21:24)
[2021-06-30 23:17] VITALS: BP 107/63
[2021-07-01 03:28] VITALS: BP 96/61
[2021-07-01 07:00] VITALS: BP 110/63
[2021-07-01] MEDS: TIMOLOL 0.5% OPHTH SOLUTION 5ML BOTTLE. OU SCH (08:30)
[2021-07-01] MEDS: BRIMONIDINE 0.2% OPHTH SOLUTION 5ML BOTTLE. OU SCH (08:30)
[2021-07-01] MEDS: POLYETHYLENE GLYCOL 3350 17 GM PACKET. PO SCH (08:30)
[2021-07-01] MEDS: APIXABAN 5 MG TABLET. PO SCH (08:30)
[2021-07-01] MEDS: LACTOBACILLUS RHAMNOSUS GG 1 CAPSULE. PO SCH (08:31)
[2021-07-01] MEDS: FUROSEMIDE 40 MG TABLET. PO SCH (08:31)
[2021-07-01] MEDS: ASPIRIN ENTERIC COATED 81 MG TABLET.DR. PO SCH (08:31)
[2021-07-01] MEDS: CIPROFLOXACIN HCL 250 MG TABLET. PO SCH (08:31)
[2021-07-01] MEDS: AMIODARONE HCL 200 MG TABLET. PO SCH (08:31)
[2021-07-01] MEDS: METOPROLOL TART IMMED RELEASE 25 MG TABLET. PO SCH (08:31)
[2021-07-01] MEDS: AMMONIUM LACTATE 12% TOPICAL LOTION 225GM BOTTLE. TP SCH (08:32)
--- NOTE | 2021-07-01 09:54 | PDOC ---
DATE OF SERVICE DATE: 07/01/21 TIME: 09:53 SUBJECTIVE ROS stable , no complaints OBJECTIVE Vital Signs Vital Signs Date Time Temp Pulse Resp B/P (MAP) Pulse Ox O2 Delivery O2 Flow Rate FiO2 07/01/21 08:31 67 110/63 07/01/21 07:00 98.6 16 93 Room Air 98.6 I & 0 Intake and Output 07/01/21 07:00 Intake Total 600 ml Output Total 200 ml Balance 400 ml Intake Oral 600 ml Output Urine Total 200 ml PHYSICAL EXAM Physical Exam GENERAL:NAD NECK: Supple, no JVD, no thyromegaly was noted. LUNGS: decreased breath sounds at bases HEART: RRR, S1, S2 present. ABDOMEN: Soft, nontender. Positive bowel sounds EXTREMITIES: LE Lymphedema NEUROLOGIC:Grossly normal SKIN: severe hyperkeratotic lesions on the lower extremities. No rebollar, No CVA or SP tenderness DIAGNOSIS/ASSESSMENT Assessment & Plan ANTWAN- resolved, Creatinine to his baseline 2.5-->1.9;Renal US Sonographically unremarkable kidneys,. Maintain fluid balance, supportive care, Avoid Nephrotoxins . CKD stage 3 B- Baseline Cr 1.6-1.8; Advised to follow with us after Discharge (Routine ) coronary artery disease- stable Leg Pain - per primary UTI- Pseudomonas UTI - low colony count, now on Cipro for 10 days per Primary Plan to dc to [facility] on 07/01 after 10 day post COVID positive. COMMENT/RELEVANT DATA Meds Current Medications Medications (Trade) Dose Ordered Sig/[place] Start Time Stop Time Status Last Admin Dose Admin Acetaminophen (Tylenol) 650 mg PRN Q6HRS PRN 06/18/21 17:30 Amiodarone HCl (Cordarone) 200 mg DAILY 06/19/21 09:00 07/01/21 08:31 200 MG Apixaban (Eliquis) 5 mg BID 06/18/21 21:00 07/01/21 08:30 5 MG Aspirin (Ecotrin) 81 mg DAILY 06/19/21 09:00 07/01/21 08:31 81 MG Atorvastatin Calcium (Lipitor) 20 mg QHS 06/18/21 21:00 06/30/21 21:24 20 MG Brimonidine Tartrate (Alphagan) 1 drop BID 06/19/21 13:00 07/01/21 08:30 1 DROP Cefdinir (Omnicef) 300 mg BID 06/18/21 21:00 06/22/21 10:37 DC 06/22/21 08:34 300 MG Ciprofloxacin (Cipro) 250 mg BID 06/22/21 21:00 07/02/21 20:59 07/01/21 08:31 250 MG Ciprofloxacin/ Dextrose 200 ml @ 200 mls/hr 1X ONCE 06/22/21 11:00 06/22/21 11:59 DC 06/22/21 10:51 200 MLS/HR Furosemide (Lasix) 40 mg DAILY 06/19/21 09:00 07/01/21 08:31 40 MG Lactic Acid (Lac-Hydrin) 1 phyllis BID 06/20/21 10:00 07/01/21 08:32 1 PHYLLIS Lactobacillus Rhamnosus (Culturelle) 1 cap BID 06/18/21 21:00 07/01/21 08:31 1 CAP Latanoprost (Xalatan) 1 drop QHS 06/18/21 21:00 06/30/21 21:24 1 DROP Metoprolol Tartrate (Lopressor) 25 mg BID 06/18/21 21:00 07/01/21 08:31 25 MG Nitroglycerin (Nitrostat) 0.4 mg PRN Q5MIN PRN 06/18/21 12:15 Oxycodone/ Acetaminophen (Percocet 5/325) 1 tab PRN Q4HRS PRN 06/19/21 17:30 06/27/21 20:36 1 TAB Polyethylene Glycol (miraLAX PACKET) 17 gm DAILY 06/24/21 12:45 07/01/21 08:30 17 GM Psyllium Hydrophilic Mucilloid (Metamucil Fiber Packet) 1 pkt QHS 06/24/21 21:00 06/30/21 21:24 1 PKT Senna/Docusate Sodium (Senna Plus) 2 tab PRN BID PRN 06/24/21 12:45 Sodium Chloride 1,000 ml @ 250 mls/hr 1X ONCE 06/26/21 08:30 06/26/21 12:29 DC 06/26/21 09:49 250 MLS/HR Timolol Maleate (Timoptic 0.5% Oph) 1 drop BID 06/19/21 13:00 07/01/21 08:30 1 DROP Zolpidem Tartrate (Ambien) 5 mg PRN QHS PRN 06/18/21 17:30 06/27/21 20:35 5 MG Results All relevant outside records, renal labs, imaging studies, telemetry/EKG's were reviewed. Justicifation of Admission Dx: Justifications for Admission: Justification of Admission Dx: FREDI Carr MD Jul 01, 2021 09:53
--- NOTE | 2021-07-01 10:31 | NUR ---
SW following. Discussed with RN, discharge orders faxed to [facility], they will collect pt at 1300 today. RN notified.
[2021-07-01 11:00] VITALS: BP 119/68
--- NOTE | 2021-07-01 13:26 | NUR ---
Discharge Note: PT DISCHARGED TO [facility]. PT LEFT FACILITY VIA [facility] AT 1322. PT STABLE AND ALERT UPON DISCHARGE. PT PIV REMOVED FROM L AC WITHOUT COMPLICATIONS, BANDAGE APPLIED. REPORT CALLED TO CIAR[facility] TROTTER AT 1230. NO CONCERNS VOICED AT THIS TIME. PT LEFT WITH ALL PERSONAL BELONGINGS. JOSE MERCADO Discharge instructions and discharge home medications reviewed with Patient and a copy given. All questions have been answered and understanding verbalized.
--- NOTE | 2021-07-04 13:07 | PDOC3 ---
[facility]-Discharge Summary Date of Admission: Date of Admission: Jun 18, 2021 Date of Discharge: Date of Discharge: Jul 01, 2021 Discharge Diagnosis: Discharge Diagnosis: Chest pain, angina, stable Pseudomonas UTI - low colony count, however in male likely prostate involvement, will need at least 10 days treatment with cipro Known coronary artery disease acute on chronic renal failure Leg pain, acute on chronic, he says he cant walk, needs PT and OT Chronic right fifth metatarsal nonhealing wound, Foot xray suggests osteomyelitis right 5th metatarsal bone,concern for adequate healing with exposed bone PAD Chronic right plantar ulcerations, Chronic lymphedema, chronic venous stasis, atrial fibrillation,status post PPM, CHF, hypertension, hyperlipidemia, osteoarthritis, History of glaucoma chest pain, elevated troponin poa, self-care deficit. 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 Came to ED c/o chest pain, unable to walk. Stable. No shortness of breath not hypoxic 06/19: Pt and ot. renal following. cont other 06/20: Cr improved to 1.8. Still very weak. No chest pain currently. Notably with gluteal bilateral foot wounds. 06/21: Cr 1.7. Still feels weak. No chest pain currently. Getting foot wound and gluteal wound care. 06/22: Stable. Still weak. Feels little more foot pain today. Urine culture returned with Pseudomonas sensitive to ciprofloxacin. Started on Cipro today DC cefdinir for now. Patient has been accepted for long-term care but given needs for ciprofloxacin atrial fibrillation will need to be monitored on telemetry while receiving ciprofloxacin. Per his brother there is no water or gas or telephone service at their home. COVID-19 rapid came positive later in the day. 06/23: Not short of breath not hypoxic bilateral foot pain stable. Tolerating Cipro with no significant appearance he is on telemetry. He was able to stand up on his own to urinate but was not able to take more than 1 step. 06/24: Seen bedside. No shortness of breath or chest pain not hypoxic. Still profoundly weak. Had wound care for his feet. Very constipated. 06/25: Seen bedside. [place] relieved with bowel movement. No shortness of breath or chest pain did have some palpitations with his BM yesterday still very weak. Was able to stand for 10 seconds without assistance today. Awaiting placement 06/26/2021 No acute events overnight. Patient seen and examined bedside. Creatinine improved. Blood pressures in the low normal range. 250 NS bolus given. We will continue to monitor urine output. Continue with PT OT modalities and pending SNF placement after 10 days from COVID positive. Can potentially be placed sooner than that based on CDC guidelines. 06/27/2021 No acute events overnight. Patient seen examined bedside. Saturating 95% on room air. Still on ciprofloxacin for his UTI. Creatinine stable at 1.9 patient's chart, labs, images were reviewed and discussed with RN. Pending SNF placement by July 01 06/28/2021 No acute events overnight. Patient seen examined bedside. AF and VSS. Not dyspneic or having any pain. Patient's chart, labs, images were reviewed and discussed with RN 06/29/21 No acute events overnight. Patient seen examined bedside. No complaints at this time. Saturating 95% on room air. Patient's chart, labs, images were reviewed and discussed with RN . Pending SNF placement 06/30/2021 No acute events night. Patient seen examined bedside. No concerns from nursing. Saturating on room air well. Patient's chart, labs, images were reviewed and discussed with RN Patient is clinically stable by day of discharge. Rest of hospital course was uneventful. Disposition: Disposition/Orders: D/C to Another Facility Activity: Activity: Resume previous activity Diet: Diet: Renal Medications: Home Meds Active Scripts Ciprofloxacin Hcl (CIPRO) 250 Mg Tablet, 250 MG PO BID for UTI for 1 Day, #2 TAB Prov:JULIO MCCRARY MD 06/30/21 Furosemide (FUROSEMIDE) 40 Mg Tablet, 40 MG PO BID94 for edema for 30 Days, #60 TAB Prov:VIRGINIE BONILLA MD 06/17/21 Atorvastatin Calcium (ATORVASTATIN CALCIUM) 20 Mg Tablet, 20 MG PO QHS, #30 TAB 2 Refills Prov:VÍCTOR BELL MD 12/04/15 Reported Medications Acetaminophen (TYLENOL) 325 Mg Tablet, 650 MG PO PRN Q6HRS PRN for MILD PAIN / TEMP > 100.3'F, TAB 04/06/21 Lactobacillus Rhamnosus Gg (CULTURELLE) 1 Each Cap.sprink, 1 EACH PO BID for probiotic therapy, CAP 04/06/21 Sennosides/Docusate Sodium (Senna-Docusate Sodium Tablet) 1 Each Tablet, 1 TAB PO BID for stool softerner for 20 Days, #40 TAB 0 Refills 04/06/21 Zolpidem Tartrate (AMBIEN) 5 Mg Tablet, 5 MG PO PRN QHS PRN for INSOMNIA, TAB 0 Refills 04/06/21 Apixaban (ELIQUIS) 5 Mg Tablet, 5 MG PO BID for blood thinner, TAB 04/06/21 Furosemide (FUROSEMIDE) 40 Mg Tablet, 40 MG PO DAILY for diuretic, TAB 04/06/21 Amiodarone Hcl (AMIODARONE HCL) 200 Mg Tablet, 200 MG PO DAILY for Heart, TAB 04/06/21 Metoprolol Tartrate (METOPROLOL TARTRATE) 25 Mg Tablet, 25 MG PO BID for FOR HYPERTENSION, #60 TAB 0 Refills 04/06/21 Aspirin (ASPIRIN EC) 81 Mg Tablet.dr, 1 TAB PO DAILY for heart health, #30 TAB 3 Refills 07/11/19 Brimonidine Tartrate/Timolol (COMBIGAN EYE DROPS) 5 Ml Drops, 5 ML OP BID, DROP 01/23/18 Latanoprost (LATANOPROST) 2.5 Ml Drops, 1 DROP EACHEYE QHS, #7.5 ML 3 Refills 11/30/15 Discontinued Scripts Cefdinir (CEFDINIR) 300 Mg Capsule, 300 MG PO BID for infection for 5 Days, #10 CAP 0 Refills Prov:VIRGINIE BONILLA MD 06/17/21 Scheduled Amiodarone Hcl (Amiodarone Hcl), 200 MG PO DAILY, (Reported) Apixaban (Eliquis), 5 MG PO BID, (Reported) Aspirin (Aspirin Ec), 1 TAB PO DAILY, (Reported) Atorvastatin Calcium (Atorvastatin Calcium), 20 MG PO QHS Brimonidine Tartrate/Timolol (Combigan Eye Drops), 5 ML OP BID, (Reported) Ciprofloxacin Hcl (Cipro), 250 MG PO BID Furosemide (Furosemide), 40 MG PO DAILY, (Reported) Furosemide (Furosemide), 40 MG PO BID94 Lactobacillus Rhamnosus Gg (Culturelle), 1 EACH PO BID, (Reported) Latanoprost (Latanoprost), 1 DROP EACHEYE QHS, (Reported) Metoprolol Tartrate (Metoprolol Tartrate), 25 MG PO BID, (Reported) Sennosides/Docusate Sodium (Senna-Docusate Sodium Tablet), 1 TAB PO BID, (Reported) Scheduled PRN Acetaminophen (Tylenol), 650 MG PO PRN Q6HRS PRN for MILD PAIN / TEMP > 100.3'F, (Reported) Zolpidem Tartrate (Ambien), 5 MG PO PRN QHS PRN for INSOMNIA, (Reported) Discontinued Medications Cefdinir (Cefdinir), 300 MG PO BID Total Time: Total Time: Total time spent was 34 minutes in preparing scripts, discharge planning with SWI and RN and preparing this discharge summary Patient seen and examined on day of discharge. No acute abnormal findings. Justicifation of Admission Dx: Justifications for Admission: Justification of Admission Dx: No JULIO MCCRARY MD Jul 04, 2021 13:07
== END 2021-07-01 13:29 | DRG 177 ==
LOC: ER 12:06 → 6 SOUTH 14:55 → 5 NORTH 06-25 13:16
PROVIDERS: ADMIT Internal Medicine; ATTEND Internal Medicine
DX: U07.1 COVID-19 (principal); N17.0 Acute kidney failure with tubular necrosis; I50.33 Acute on chronic diastolic (congestive) heart failure; N39.0 Urinary tract infection, site not specified; I11.0 Hypertensive heart disease with heart failure; K21.9 Gastro-esophageal reflux disease without esophagitis; B96.5 Pseudomonas (aeruginosa) (mallei) (pseudomallei) as the cause of diseases classified elsewhere; E03.9 Hypothyroidism, unspecified; E78.5 Hyperlipidemia, unspecified; G89.29 Other chronic pain; H54.61 Unqualified visual loss, right eye, normal vision left eye; H54.62 Unqualified visual loss, left eye, normal vision right eye; H91.90 Unspecified hearing loss, unspecified ear; I25.119 Atherosclerotic heart disease of native coronary artery with unspecified angina pectoris; I48.0 Paroxysmal atrial fibrillation; I70.201 Unspecified atherosclerosis of native arteries of extremities, right leg; I87.8 Other specified disorders of veins; I89.0 Lymphedema, not elsewhere classified; K59.00 Constipation, unspecified; L97.519 Non-pressure chronic ulcer of other part of right foot with unspecified severity; N18.30 Chronic kidney disease, stage 3 unspecified; R62.7 Adult failure to thrive; S91.302A Unspecified open wound, left foot, initial encounter; Z78.9 Other specified health status; Z83.3 Family history of diabetes mellitus; Z87.891 Personal history of nicotine dependence; Z95.0 Presence of cardiac pacemaker; M19.90 Unspecified osteoarthritis, unspecified site
CPT/HCPCS: 36415; 71045; 80048; 80053; 80307; 81001; 82550; 82962; 83690; 83735; 83880; 84484; 85025; 87077; 87086; 87186; 93005; 96360; J0744; J7030; U0003; U0005; 97110-GP; 97116-GP; 97535-GO; 99285-25; G0378

== ENCOUNTER 2021-08-20 11:55 | Emergency (ER) | payer OTHER ==
[~2021-08-20] VITALS: Ht 182.9 cm; Wt 107.0 kg
[~2021-08-20 11:55] MED LIST changes: +CIPR250T30 PO
[2021-08-20 12:33] LABS: BASO # 0.1 x10^3/uL (0.0-0.2); BASO % 1 % (0-3); EOS # 0.2 x10^3/uL (0.0-0.7); EOS % 2 % (0-3); HEMATOCRIT 44.2 % (39.0-53.0); HEMOGLOBIN 14.4 g/dL (13.0-17.5); LYMPH # 1.3 x10^3/uL (1.0-4.8); LYMPH % 17 % (24-48); MEAN CORPUSCULAR HEMOGLOBIN 29 pg (25-35); MEAN CORPUSCULAR HGB CONC 33 g/dL (31-37); MEAN CORPUSCULAR VOLUME 89 fL (79-100); MONO # 0.6 x10^3/uL (0.0-1.1); MONO % 9 % (0-9); NEUT # 5.1 x10^3/uL (1.8-7.7); NEUT % 70 % (31-73); PLATELET COUNT 252 x10^3/uL (140-400); RED BLOOD COUNT 4.94 x10^6/uL (4.30-5.70); RED CELL DISTRIBUTION WIDTH 16.4 % (11.5-14.5); WHITE BLOOD COUNT 7.3 x10^3/uL (4.0-11.0)
[2021-08-20 12:41] LABS: CREATININE 1.8 mg/dL (0.7-1.3); GFR 37.3; POTASSIUM 3.7 mmol/L (3.5-5.1)
--- NOTE | 2021-08-20 12:44 | RAD ---
Exam performed: One view chest. Indication: Reason: dizziness / Spl. Instructions: / History: Date of Service: 08/20/2021 12:22 PM Comparison: One view chest from 06/18/2021 Single AP upright portable view chest findings: Cardiomediastinal silhouette is within limits of normal. There is a bipolar pacemaker in place. Uncha nged haziness in the left lung perhaps related to overlying shadows. No acute infiltrates, effusion o r pneumothorax is detected. The bony structures are normal. Impression: Stable one view chest No acute cardiopulmonary process is detected. Electronically signed by: Deanne Molina MD (08/20/2021 12:42 PM) [facility]
[2021-08-20 12:46] LABS: ALBUMIN/GLOBULIN RATIO 0.7 (1.0-1.7); MAGNESIUM 2.4 mg/dL (1.8-2.4); TOTAL BILIRUBIN 0.6 mg/dL (0.2-1.0); TOTAL PROTEIN 7.6 g/dL (6.4-8.2)
--- NOTE | 2021-08-20 12:49 | PHYS DOC ---
Past Medical History Past Medical History: A-Fib, Glaucoma, Heart Disease, Vascular Disease Additional Past Medical Histor: TIMBI-SHA SHOSHONE,blind right eye,lymphadema,poor historian, PERIPHERAL VASCULAR DISEASE Past Surgical History: Pacemaker, Other Additional Past Surgical Histo: PROSTATE Smoking Status: Former Smoker Alcohol Use: None Drug Use: None General Adult EDM: Chief Complaint: DIZZY/LIGHT HEADED HPI: HPI: 70 yo F PMH CAD, CHF, hyperlipidemia, hypertension, lymphedema, A. fib o eliquis, glaucoma and cardiac pacemaker, presents to the ED from urgent [facility] with complaints of "I feel like I'm going to blackout everytime I stand up." Has a known history of orthostatic hypotension and states the symptoms have been recurrent for the past 5 months. Received 500 NS prior to ED arrival. Has no active dizziness at rest, only when changing positions. Review of Systems: Review of Systems: Constitutional: Denies fever or chills. [] Eyes: Denies change in visual acuity. [] HENT: Denies nasal congestion or sore throat. [] Respiratory: Denies cough or shortness of breath or hemoptysis Cardiovascular: Denies chest pain or edema. [] GI: Denies abdominal pain, nausea, vomiting, bloody stools or diarrhea. [] : Denies incontinence or saddle anesthesia Musculoskeletal: Denies back pain or joint pain. [] Integument: Denies rash or diaphoresis Neurologic: Denies headache, focal weakness or sensory changes. [] Endocrine: Denies polyuria or polydipsia. [] Lymphatic: Denies swollen glands. [] Psychiatric: Denies depression or anxiety. [] Heart Score: C/O Chest Pain: No Risk Factors: Risk Factors: DM, Current or recent (<one month) smoker, HTN, HLP, family history of CAD, obesity. Risk Scores: Score 0 - 3: 2.5% MACE over next 6 weeks - Discharge Home Score 4 - 6: 20.3% MACE over next 6 weeks - Admit for Clinical Observation Score 7 - 10: 72.7% MACE over next 6 weeks - Early Invasive Strategies Allergies: Allergies: Allergies Coded Allergies Type Severity Reaction Last Updated Verified No Known Drug Allergies 03/22/21 No Physical Exam: PE: Constitutional: Well developed, well nourished, no acute distress, non-toxic ap pearance. HENT: Normocephalic, atraumatic, no signs of head trauma Eyes: Pupils equal reactive, no nystagmus, EOMI, conjunctiva normal, no discharge. Neck: Normal range of motion, supple, Cardiovascular: S1/2 present, regular rhythm Lungs & Thorax: Speaking in full sentences, bilateral equal chest rise, no tachypnea or increased work of breathing Abdomen: soft, no tenderness, Skin: Warm, dry, no erythema, no rash. [] Back: No midline spinal step-offs or tenderness, no CVA tenderness. [] Extremities: No tenderness, no cyanosis, Neurologic: Alert and oriented X 3, normal motor function, normal sensory function, no focal deficits noted. [] Psychologic: Affect normal, judgement normal, mood normal. [] Current Patient Data: Labs: Laboratory Tests Test 08/20/21 12:01 White Blood Count 7.3 x10^3/uL (4.0-11.0) Red Blood Count 4.94 x10^6/uL (4.30-5.70) Hemoglobin 14.4 g/dL (13.0-17.5) Hematocrit 44.2 % (39.0-53.0) Mean Corpuscular Volume 89 fL (79-100) Mean Corpuscular Hemoglobin 29 pg (25-35) Mean Corpuscular Hemoglobin Concent 33 g/dL (31-37) Red Cell Distribution Width 16.4 % (11.5-14.5) H Platelet Count 252 x10^3/uL (140-400) Neutrophils (%) (Auto) 70 % (31-73) Lymphocytes (%) (Auto) 17 % (24-48) L Monocytes (%) (Auto) 9 % (0-9) Eosinophils (%) (Auto) 2 % (0-3) Basophils (%) (Auto) 1 % (0-3) Neutrophils # (Auto) 5.1 x10^3/uL (1.8-7.7) Lymphocytes # (Auto) 1.3 x10^3/uL (1.0-4.8) Monocytes # (Auto) 0.6 x10^3/uL (0.0-1.1) Eosinophils # (Auto) 0.2 x10^3/uL (0.0-0.7) Basophils # (Auto) 0.1 x10^3/uL (0.0-0.2) Sodium Level 140 mmol/L (136-145) Potassium Level 3.7 mmol/L (3.5-5.1) Chloride Level 105 mmol/L (98-107) Carbon Dioxide Level 31 mmol/L (21-32) Anion Gap 4 (6-14) L Blood Urea Nitrogen 24 mg/dL (8-26) Creatinine 1.8 mg/dL (0.7-1.3) H Estimated GFR (Cockcroft-Gault) 37.3 BUN/Creatinine Ratio 13 (6-20) Glucose Level 94 mg/dL (70-99) Calcium Level 9.0 mg/dL (8.5-10.1) Magnesium Level Pending Total Bilirubin Pending Aspartate Amino Transferase (AST) Pending Alanine Aminotransferase (ALT) Pending Alkaline Phosphatase Pending Troponin I High Sensitivity 13 ng/L (4-75) Total Protein Pending Albumin Pending Albumin/Globulin Ratio Pending Laboratory Tests 08/20/21 12:01 Laboratory Tests 08/20/21 12:01 Vital Signs: Vital Signs Date Time Temp Pulse Resp B/P (MAP) Pulse Ox O2 Delivery O2 Flow Rate FiO2 08/20/21 11:55 98.0 68 20 144/88 (106) 95 Room Air 98.0 EKG: EKG: Regular rhythm 68 bpm, extreme right axis deviation, QTC 469, T wave inversion lead III, no ST ovation or ST depression Radiology/Procedures: Radiology/Procedures: IMAGING REPORT Signed PATIENT: JOSE MERCADO ACCOUNT: [id number] : 1950 LOCATION: ER AGE: 70 SEX: M EXAM STATUS: REG ER ORD. PHYSICIAN: AZAR TOLEDO DO REASON: dizzy PROCEDURE: CT HEAD WO CONTRAST CT HEAD/BRAIN WO History: Reason: dizzy / Spl. Instructions: / History: Comparison: June 30, 2020 Technique: Noncontrast CT imaging was performed of the head. Exposure: One or more of the following individualized dose reduction techniques were utilized for this examination: 1. Automated exposure control 2. Adjustment of the mA and/or kV according to patient size 3. Use of iterative reconstruction technique. Findings: No intracranial hemorrhage. No mass effect. No hydrocephalus. Mild brain parenchymal volume loss. Mild foci of decreased attenuation within the hemispheric white matter, most often due to chronic microvascular ischemia. Chronic left caudate lacunar infarct, unchanged. Right inferior basal ganglia hypodensity, may represent prominent perivascular space or chronic lacunar infarct. Imaged orbits are unremarkable. Imaged paranasal sinuses and mastoid air cells are clear. No acute calvarial fracture. Impression: 1. No acute intracranial abnormality. Electronically signed by: Que Gomes DO (08/20/2021 1:09 PM) [facility] DICTATED and SIGNED BY: QUE GOMES DO DATE: 08/20/21 1303 IMAGING REPORT Signed PATIENT: JOSE MERCADO ACCOUNT: [id number] : 1950 LOCATION: ER AGE: 70 SEX: M EXAM STATUS: PRE ER ORD. PHYSICIAN: AZAR TOLEDO DO REASON: dizziness PROCEDURE: CHEST AP ONLY Exam performed: One view chest. Indication: Reason: dizziness / Spl. Instructions: / History: Date of Service: 08/20/2021 12:22 PM Comparison: One view chest from 06/18/2021 Single AP upright portable view chest findings: Cardiomediastinal silhouette is within limits of normal. There is a bipolar pacemaker in place. Unchanged haziness in the left lung perhaps related to overlying shadows. No acute infiltrates, effusion or pneumothorax is detected. The bony structures are normal. Impression: Stable one view chest No acute cardiopulmonary process is detected. Electronically signed by: Deanne Molina MD (08/20/2021 12:42 PM) [facility] DICTATED and SIGNED BY: DEANNE MOLINA MD DATE: 08/20/21 1233 Course & Med Decision Making: Course & Med Decision Making Pertinent Labs and Imaging studies reviewed. (See chart for details) Encounter for hypertension, I do suspect is orthostatic in nature. Patient is asymptomatic at rest. No further hypotension in the emergency department. Patient afebrile with no evidence of infection/sepsis (normal cxr and u/a). Patient was stable, chronic kidney disease. Nonspecific elevation of his liver enzymes are present. Will discharge home with strict ED return precautions were given for syncope, neurologic deficits or chest pain. Encouraged urgent outpatient follow-up with PMD for reevaluation and repeat liver function tests. Life-threatening processes were considered but are low suspicion at this time, given history, physical exam and ED workup. Pt was educated on all prescription medications and adverse effects. All patient's questions were answered and pt was stable at time of discharge. Life/limb-threatening differential includes but is not limited to, abdominal aortic aneurysm, aortic dissection, acute coronary syndrome, anemia, valvular disorder, cerebrovascular accident, drug overdose or toxidrome, arrhythmia, prolonged QT syndrome, hemorrhage, heat illness, intracranial hemorrhage, infection including meningitis/encephalitis/sepsis/toxic shock/myocarditis, vertebrobasilar insufficiency, seizure, medication adverse event, illicit drug use, electrolyte disorder I have spoken with the patient and/or caregivers. I explained the patient's condition, diagnoses and treatment plan based on the information available to me at this time. I have answered the patient and/or caregiver's questions and ad dressed any concerns. The patient and/or caregivers have a good understanding of patient's diagnosis, condition and treatment plan as can be expected at this point. Vital signs have been stable. Patient's condition is stable and appropriate for discharge from the emergency department. Patient will pursue further outpatient evaluation with primary care physician or other designated or consulting physician as outlined in the discharge instructions. The patient and/or caregivers are agreeable to this plan of care and follow-up instructions have been explained in detail. The patient and/or caregivers have received these instructions in written form and have expressed an understanding of the discharge instructions. The patient and/or caregivers are aware that any significant change of condition or worsening of symptoms should prompt immediate return to this or the closest emergency department or call to 1. Timmy Disclaimer: Timmy Disclaimer: This electronic medical record was generated, in whole or in part, using a voice recognition dictation system. Departure Departure Impression: Primary Impression: CKD (chronic kidney disease) Additional Impressions: Orthostatic hypotension Elevated liver enzymes Disposition: 01 HOME / SELF CARE / HOMELESS Condition: STABLE Referrals: Francis SHIELDS MD (PCP) Follow-up with your primary care physician in 3-5 days for to re-evaluation, repeat LFTs OR FOLLOW UP WITH FAMILY MEDICINE: [address], [address] [place] [address] Patient Instructions: Chronic Renal Insufficiency, Orthostatic Hypotension Additional Instructions: EMERGENCY DEPARTMENT GENERAL DISCHARGE INSTRUCTIONS Thank you for coming to [facility] Emergency Department (ED) today and trusting us with you care. We trust that you had a positive experience in our Emergency Department. If you wish to speak to the department management, you may call the Director at [phone]. YOUR FOLLOW UP INSTRUCTIONS ARE FOLLOWS: 1. Do you have a private Doctor? If you do not have a private doctor, please ask for a resource list of physicians or clinics that may be able to assist you with follow up care. 2. The Emergency Physicain has interpreted your x-rays. The X-Ray specialist will also review them. If there is a change in the findings, you will be notified in 48 hours when at all possible. 3. A lab test or culture has been done, your results will be reviewed and you will be notified if you need a change in treatment. ADDITIONAL INSTRUCTIONS AND INFORMATION: 1. Your care today has been supervised by a physician who is specially trained in emergency care. Many problems require more than one evaluation for a complete diagnosis and treatment. We recommend that you schedule your follow up appointment as recommended to ensure complete treatment of you illness or injury. If you are unable to obtain follow up care and continue to have a problem, or if your condition worsens, we recommend that you return to the ED. 2. We are not able to safely determine your condition over the phone nor are we able to give sound medical advice over the phone. For these safety reasons, if you call for medical advice we will ask you to come to the ED for further evaluation. 3. If you have any questions regarding these discharge instructions please call the ED at [phone]. SAFETY INFORMATION: In the interest of safety, wellness, and injury prevention; we encourage you to wear your sealbelt, if you smoke; quite smoking, and we encourage family to use a protective helmet for bicycling and other sporting events that present an increased risk for head injury. IF YOUR SYMPTOMS WORSEN OR NEW SYMPTOMS DEVELOP, OR YOU HAVE CONCERNS ABOUT YOUR CONDITION; OR IF YOUR CONDITION WORSENS WHILE YOU ARE WAITING FOR YOUR FOLLOW UP APPOINTMENT; EITHER CONTACT YOUR PRIMARY CARE DOCTOR, THE PHYSICIAN WHOSE NAME AND NUMBER YOU WERE GIVEN, OR RETURN TO THE ED IMMEDIATELY. AZAR SERRANO DO Aug 20, 2021 12:49
--- NOTE | 2021-08-20 13:11 | RAD ---
CT HEAD/BRAIN WO History: Reason: dizzy / Spl. Instructions: / History: Comparison: June 30, 2020 Technique: Noncontrast CT imaging was performed of the head. Exposure: One or more of the following individualized dose reduction techniques were utilized for thi s examination: 1. Automated exposure control 2. Adjustment of the mA and/or kV according to patient size 3. Use of iterative reconstruction technique. Findings: No intracranial hemorrhage. No mass effect. No hydrocephalus. Mild brain parenchymal volume loss. Mild foci of decreased attenuation within the hemispheric white m atter, most often due to chronic microvascular ischemia. Chronic left caudate lacunar infarct, unchan ged. Right inferior basal ganglia hypodensity, may represent prominent perivascular space or chronic lacunar infarct. Imaged orbits are unremarkable. Imaged paranasal sinuses and mastoid air cells are clear. No acute ca lvarial fracture. Impression: 1. No acute intracranial abnormality. Electronically signed by: Que Gomes DO (08/20/2021 1:09 PM) [facility]
[2021-08-20 15:18] LABS: BILIRUBIN,URINE NEGATIVE (NEG); CLARITY,URINE CLEAR; COLOR,URINE YELLOW
[2021-08-20 15:19] LABS: NITRITE,URINE NEGATIVE (NEG); PROTEIN,URINE NEGATIVE (NEG-TRACE); UROBILINOGEN,URINE 0.2 mg/dL (0.2 mg/dL)
[2021-08-20 15:20] LABS: BACTERIA,URINE 0 /HPF (0-FEW)
[2021-08-20 17:52] VITALS: BP 112/60
--- NOTE | 2021-08-20 19:06 | EKG ---
[facility] [address] [place] [address] Test Date: 1999-06-05 Test Time: 12:08:18 Pat Name: JOSE MERCADO Department: Room: Gender: M [employer]: : 1950 Requested By: AZAR TOLEDO Order Number: [id number] Reading MD: Measurements Intervals [place] Rate: 68 P: NM: QRS: 144 QRSD: 100 T: 15 QT: 436 QTc: 469 Interpretive Statements IRREGULAR RHYTHM, NO P-WAVE FOUND ABNORMAL RIGHT AXIS DEVIATION LOW LIMB LEAD VOLTAGE QRS(T) CONTOUR ABNORMALITY CONSISTENT WITH ANTERIOR INFARCT PROBABLY OLD CONSISTENT WITH HIGH LATERAL INFARCT PROBABLY OLD ABNORMAL ECG RI6.02 Compared to ECG 06/05/1999 12:06:28 No significant changes
== END 2021-08-20 18:25 | disposition home or self-care (01) ==
LOC: ER 11:55
DX: I95.1 Orthostatic hypotension (principal); R74.8 Abnormal levels of other serum enzymes; I48.91 Unspecified atrial fibrillation; I25.10 Atherosclerotic heart disease of native coronary artery without angina pectoris; Z87.891 Personal history of nicotine dependence; Z95.0 Presence of cardiac pacemaker; I13.0 Hypertensive heart and chronic kidney disease with heart failure and stage 1 through stage 4 chronic kidney disease, or unspecified chronic kidney disease; N18.9 Chronic kidney disease, unspecified; I50.9 Heart failure, unspecified
CPT/HCPCS: 36415; 70450; 71045; 80053; 81001; 83735; 84484; 85025; 93005; 99285-25